=== PATIENT | male | born 1990 | race Caucasian/White ===

== ENCOUNTER 2020-02-26 09:25 | Outpatient (REF) | payer OTHER, SELFPAY | END 2020-02-26 09:26 | disposition home or self-care (01) | LOC: HO.LAB 09:25 | PROVIDERS: Visit Provider Nurse Practitioner Family | DX: J06.9 Acute upper respiratory infection, unspecified (principal); Z20.828 Contact with and (suspected) exposure to other viral communicable diseases | CPT/HCPCS: U0003 ==

== ENCOUNTER 2020-03-06 06:36 | Emergency (ER) | payer OTHER, SELFPAY ==
[2020-03-06 06:42] VITALS: BP 137/104; PULSE 87; RESP 24; TEMP 36.6; O2SAT 94; BMI 26.9
--- NOTE | 2020-03-06 06:46 | PC.NURSE ---
at bedside for primary eval.
--- NOTE | 2020-03-06 06:51 | XR_ITS ---
EXAMINATION: XR CHEST CLINICAL INFORMATION: Fever, cough and cold. Covid Positive COMPARISON: None TECHNIQUE: Frontal view of the chest was obtained. FINDINGS: The lungs are well-expanded with slight interstitial prominence in both lower lobes. No confluent infiltrate seen.. The heart size and pulmonary vascularity is normal. No gross bony abnormality seen XR/XR chest 1V IMPRESSION: No acute pneumonic process seen.
--- NOTE | 2020-03-06 06:53 | ED_ITS ---
HPI - Nausea/Vomiting/Diarrhea General Chief complaint: Nausea/Vomiting/Diarrhea Stated complaint: VOMITING/COVID POSITIVE Time Seen by Provider: 03/06/20 06:50 Source: patient Mode of arrival: ambulatory Limitations: no limitations History of Present Illness MD elicited complaint: nausea, vomiting, diarrhea and other (cough weakness) Pertinent past history: other (+ for COVID since Tuesday but sick x 10 days) Onset (ago): day(s) (10) Description of vomiting: watery Associated nausea: Yes Associated abdominal pain: No Radiation: diffuse Pain consistency: constant Exacerbating factors: none Relieving factors: none Context: sick contacts Associated symptoms: myalgias, cough, fever/chills, headaches, loss of appetite, malaise, nausea/vomiting and shortness of breath Related Data Home Medications Medication Instructions Recorded Confirmed buprenorphine 8 mg-naloxone 2 mg 0.5 film SUBLINGUAL DAILY 02/26/20 03/06/20 sublingual film omeprazole 20 mg capsule,delayed 20 mg PO DAILY 02/26/20 03/06/20 release ascorbic acid (vitamin C) 500 mg PO DAILY 03/06/20 03/06/20 Previous Rx's Medication Instructions Recorded ondansetron 4 mg PO Q8H PRN #20 tab 03/06/20 promethazine 25 mg AL Q6H PRN #12 ea 03/06/20 Allergies Allergy/AdvReac Type Severity Reaction Status Date / Time No Known Allergies Allergy Unverified 12/13/19 16:56 Review of Systems Review of Systems: Constitutional : No Weight loss, pos Fever, pos Chills ENT/Mouth : No sore throat, No Rhinorrhea Eyes: No Swelling, No Redness Cardiovascular : No Chest Pain, pos SOB, NoEdema Respiratory : pos Cough, No Sputum, No Wheezing Gastrointestinal : Positive Nausea, Positive Vomiting, positive Diarrhea, no abdominal Pain, No Hematochezia, No Melena Genitourinary : No Dysuria, No Urinary Frequency, No Hematuria, No Urgency Musculoskeletal : pos joint pain, pos Myalgias, No Joint Swelling Skin : No Skin Lesions, No rash Neuro : pos Weakness, No Numbness, No Dizziness, No Headache Psych : No Anxiety/Panic, No Depression Heme/Lymph: No Bruising, No Lymphadenopathy Endocrine : No Polyuria, No Polydipsia All other systems reviewed and are negative. Gastrointestinal: Gastrointestinal: Reports nausea PMFSH Past Medical History Attestation statement: The following information was validated with the patient. Medical History No known health problems Social History Social History (Updated 03/06/20 @ 07:00 by Lois Mabry DO) Alcohol intake: current Alcohol intake frequency: 3 or more drinks per day Smoking Status: Current every day smoker Smoked in Last 30 Days: Yes Substance Use Type: Former Substance User Any prior treatment program specific to substance use: Yes (ON SUBOXONE, PAST HEROIN USE) Advance Directives: No Physical Exam Vital Signs: Vital Signs: Last Vital Signs Temp 98.5 F 03/06/20 10:37 Pulse 74 03/06/20 10:37 Resp 108 H 03/06/20 10:37 BP 127/93 H 03/06/20 10:37 Pulse Ox 95 03/06/20 10:37 Body Mass Index 26.9 Appearance: Alert. Oriented X3. No acute distress. Eyes: Pupils equal, round and reactive to light. ENT: Pharynx moderate dry MM Neck: Normal inspection. Neck supple. CVS: Normal heart rate and rhythm. Pulses normal. Respiratory: No respiratory distress. Breath sounds diminished with rhonchi and diffuse faint end exp wheezes Abdomen: Soft and non-tender. Skin: Skin warm and dry. Normal skin color. Normal skin turgor. Extremities: No lower extremity edema. No calf ttp Neuro: Oriented X 3. No motor deficit. No sensory deficit. Course Course Course Narrative: labs stable, will replete K, walking sat 94-96% can be managed as outpatient at this time, prior elevations in LFTs able to tolerate PO on DC the patient c/o numbness and diff walking in L foot - 2+ DP pulse states h e has a hard time walking, no motor deficit CT scan for any lesions ordered CT head normal with 1 week of symptoms can follow up with PCP motor and vascular intact MDM - Nausea/Vomiting/Diarrhea MDM Narrative Medical decision making narrative: 30 yo male 4 years in recovery doing great on suboxone here with URI symptoms and n/v/d with known + COVID test on Tuesday - he has sats 91-94%on RA, he has been vomiting x 4 days and appears dehydrated, will need labs, CXR, IVF, zofran, he needs INH as well given lung sounds, will need ambulation trial to assess degree of hypoxia, patient has not been able to take his suboxone due to vomiting - will give AM dose now. dispo per results and findings. Lab Data Result diagrams: 03/06/20 07:24 03/06/20 07:24 Labs: Lab Results 03/06/20 03/06/20 03/06/20 Range/Units 07:24 07:24 07:24 WBC 2.3 L (4.8-10.8) X10*3/uL RBC 5.85 H (4.60-5.80) X10*6/uL Hgb 19.5 H (14.0-18.0) g/dl Hct 52.5 H (42-52) % MCV 89.7 (80-98) fL MCH 33.3 H (27.0-33.0) pg MCHC 37.1 H (31.0-36.0) g/dl RDW 11.0 (11.0-16.0) % Plt Count 165 (160-400) X10*3/uL MPV 11.8 (9.4-12.4) fL Immature Gran % (Auto) Cancelled Neut % (Auto) Cancelled Lymph % (Auto) Cancelled [place] % (Auto) Cancelled Eos % (Auto) Cancelled Baso % (Auto) Cancelled Lymph # (Auto) Cancelled [place] # (Auto) Cancelled Eos # (Auto) Cancelled Baso # (Auto) Cancelled Abs Immat Gran (auto) Cancelled Absolute Neuts (auto) Cancelled Absolute Nucleated RBC 0.000 (0.0-0.012) X10*3/uL Nucleated RBC % (auto) 0.0 (0.0-0.2) /100WBC Neutrophils % (Manual) 67 (45-73) % Band Neutrophils % 0 L (3-5) % Lymphocytes % (Manual) 16 L (20-40) % Monocytes % (Manual) 17 H (2-11) % Abs Neuts (Manual) 1.5 L (2.2-7.9) X10*3/uL Lymphocytes # (Manual) 0.4 L (0.6-4.8) X10*3/uL Monocytes # (Manual) 0.4 (0.0-1.2) X10*3/uL Platelet Estimate NORMAL (NORMAL) Large Platelets PRESENT Plt Morphology Comment NORMAL RBC Morphology NOTED Spherocytes 1+ Tear Drop Cells 2+ [place] Cells 1+ PT 15.9 H (10.8-13.0) SEC INR 1.3 H (0.9-1.1) APTT 31.6 (24.1-38.0) SEC VBG pH (7.32-7.43) VBG pCO2 mmhg VBG pO2 mmhg VBG HCO3 mmol/L VBG O2 Saturation % VBG Base Excess mmol/L Sodium (135-145) mmol/L Potassium (3.3-5.1) mmol/l Chloride (96-108) mmol/L Carbon Dioxide (22-29) mmol/L Anion Gap (12-20) BUN (9-16) mg/dL Creatinine (0.5-1.4) mg/dL Estim Creat Clear Calc Estimated GFR Random Glucose (60-115) mg/dL Lactic Acid 1.2 (0.5-2.0) mmol/L Calcium (8.4-10.2) mg/dL Magnesium (1.6-2.6) mg/dL Ferritin (20-250) ng/mL Total Bilirubin (0.0-1.0) mg/dL Direct Bilirubin (0.0-0.5) mg/dL AST (5-37) U/L ALT (0-40) U/L Alkaline Phosphatase (39-117) U/L Lactate Dehydrogenase (118-273) U/L Total Creatine Kinase (38-174) U/L Total Protein (6.5-8.0) g/dL Albumin (3.5-5.0) g/dL Lipase (8-78) U/L Procalcitonin ng/mL 03/06/20 03/06/20 03/06/20 Range/Units 07:24 07:24 07:24 WBC (4.8-10.8) X10*3/uL RBC (4.60-5.80) X10*6/uL Hgb (14.0-18.0) g/dl Hct (42-52) % MCV (80-98) fL MCH (27.0-33.0) pg MCHC (31.0-36.0) g/dl RDW (11.0-16.0) % Plt Count (160-400) X10*3/uL MPV (9.4-12.4) fL Immature Gran % (Auto) Neut % (Auto) Lymph % (Auto) [place] % (Auto) Eos % (Auto) Baso % (Auto) Lymph # (Auto) [place] # (Auto) Eos # (Auto) Baso # (Auto) Abs Immat Gran (auto) Absolute Neuts (auto) Absolute Nucleated RBC (0.0-0.012) X10*3/uL Nucleated RBC % (auto) (0.0-0.2) /100WBC Neutrophils % (Manual) (45-73) % Band Neutrophils % (3-5) % Lymphocytes % (Manual) (20-40) % Monocytes % (Manual) (2-11) % Abs Neuts (Manual) (2.2-7.9) X10*3/uL Lymphocytes # (Manual) (0.6-4.8) X10*3/uL Monocytes # (Manual) (0.0-1.2) X10*3/uL Platelet Estimate (NORMAL) Large Platelets Plt Morphology Comment RBC Morphology Spherocytes Tear Drop Cells [place] Cells PT (10.8-13.0) SEC INR (0.9-1.1) APTT (24.1-38.0) SEC VBG pH 7.52 H (7.32-7.43) VBG pCO2 31 mmhg VBG pO2 87 mmhg VBG HCO3 25 mmol/L VBG O2 Saturation 97.3 % VBG Base Excess 3.0 mmol/L Sodium 135 (135-145) mmol/L Potassium 3.2 L (3.3-5.1) mmol/l Chloride 97 (96-108) mmol/L Carbon Dioxide 23 (22-29) mmol/L Anion Gap 18 (12-20) BUN 8 L (9-16) mg/dL Creatinine 0.70 (0.5-1.4) mg/dL Estim Creat Clear Calc 179.4 Estimated GFR > 60 Random Glucose 138 H (60-115) mg/dL Lactic Acid (0.5-2.0) mmol/L Calcium 8.8 (8.4-10.2) mg/dL Magnesium 1.7 (1.6-2.6) mg/dL Ferritin 1187 H (20-250) ng/mL Total Bilirubin 1.1 H (0.0-1.0) mg/dL Direct Bilirubin 0.8 H (0.0-0.5) mg/dL AST 58 H (5-37) U/L ALT 69 H (0-40) U/L Alkaline Phosphatase 112 (39-117) U/L Lactate Dehydrogenase 335 H (118-273) U/L Total Creatine Kinase 35 L (38-174) U/L Total Protein 7.0 (6.5-8.0) g/dL Albumin 4.5 (3.5-5.0) g/dL Lipase 46 (8-78) U/L Procalcitonin 0.05 ng/mL Discharge Plan Discharge Clinical Impression: COVID-19, Acute hypokalemia, Abnormal LFTs Vomiting Qualifiers: Vomiting type: unspecified Vomiting Intractability: non-intractable Nausea presence: with nausea Qualified Code(s): R11.2 - Nausea with vomiting, unspecified Leukocytopenia Qualifiers: Leukopenia type: unspecified Qualified Code(s): D72.819 - Decreased white blood cell count, unspecified Patient Disposition: Home, Self-Care Instructions: Acute Nausea and Vomiting (ED), COVID-19 (Coronavirus Disease 2019) (ED) Additional Instructions: return to ED for any worsening symptoms or concerns YOUR LIVER FUNCTION TESTS WERE ELEVATED LIKELY DUE TO THE VIRUS - WILL NEED A RECHECK IN 1 WEEK YOUR HEMOGLOBIN IS ALSO VERY HIGH CHRONICALLY FROM PAST LAB RESULTS THIS SHOULD BE MONITORED BY YOUR DOCTOR REGULARLY USE INHALER 2 PUFFS EVERY 4 HOURS FOR COUGH OR SHORTNESS OF BREATH Prescriptions: New promethazine 25 mg suppository 25 mg AL Q6H PRN (Reason: nausea and vomiting) Qty: 12 RF: 0 ondansetron 4 mg tablet,disintegrating 4 mg PO Q8H PRN (Reason: nausea and vomiting) Qty: 20 RF: 0 No Action ascorbic acid (vitamin C) 500 mg Tablet 500 mg PO DAILY RF: 0 buprenorphine-naloxone 8-2 mg film 0.5 film sublingual DAILY RF: 0 omeprazole 20 mg capsule,delayed release(DR/EC) 20 mg PO DAILY RF: 0 Stand Alone Forms: Work/School Release
[2020-03-06] MEDS: Albuterol Sulfate 90 MCG 8 GM INHALER 4 PUFF INHALE (07:32)
[2020-03-06] MEDS: 0.9 % Sodium Chloride 1,000 ML 999 ML IVCONT (07:37)
[2020-03-06] MEDS: Buprenorphine/Naloxone 4/1 mg FILM 1 FILM SUBLINGUAL (07:37)
[2020-03-06] MEDS: ondansetron HCL 4 MG/2 ML VIAL IVPUSH (07:37)
[2020-03-06] MEDS: Acetaminophen 325 MG TABLET 650 MG PO (07:37)
[2020-03-06 07:41] LABS: HCO3 VBG 25 mmol/L; Oxygen Saturation VBG 97.3 %; PCO2 VBG 31 mmhg; PO2 VBG 87 mmhg; pH VBG 7.52 (7.32-7.43)
[2020-03-06 07:46] VITALS: BP 132/94; PULSE 85; RESP 20; TEMP 36.9; O2SAT 94
[2020-03-06 07:53] VITALS: PULSE 73; O2SAT 94
[2020-03-06 08:01] LABS: INTERNATIONAL NORM RATIO 1.3 (0.9-1.1); Prothrombin Time 15.9 SEC (10.8-13.0)
[2020-03-06 08:04] LABS: Partial Thromboplastin Time 31.6 SEC (24.1-38.0)
[2020-03-06 08:17] LABS: Lactic Acid 1.2 mmol/L (0.5-2.0)
[2020-03-06 08:21] LABS: Alanine Aminotransferase 69 U/L (0-40); Albumin Level 4.5 g/dL (3.5-5.0); Alkaline Phosphatase 112 U/L (39-117); Anion Gap 18 (12-20); Aspartate Amino Transferase 58 U/L (5-37); Bilirubin Direct 0.8 mg/dL (0.0-0.5); Bilirubin Total 1.1 mg/dL (0.0-1.0); Blood Urea Nitrogen 8 mg/dL (9-16); Calcium 8.8 mg/dL (8.4-10.2); Carbon Dioxide 23 mmol/L (22-29); Chloride 97 mmol/L (96-108); Creatinine Clr Calc Pharmacy 179.4; Estimated Glomerular Filt Rate > 60; Glucose Random 138 mg/dL (60-115); Lactate Dehydrogenase 335 U/L (118-273); Lipase 46 U/L (8-78); Magnesium 1.7 mg/dL (1.6-2.6); Potassium 3.2 mmol/l (3.3-5.1); Sodium 135 mmol/L (135-145)
[2020-03-06 08:40] LABS: Procalcitonin 0.05 ng/mL
[2020-03-06 08:41] LABS: Ferritin 1187 ng/mL (20-250)
[2020-03-06 08:42] LABS: Hematocrit 52.5 % (42-52); Hemoglobin 19.5 g/dl (14.0-18.0); Mean Corpuscular HGB Conc 37.1 g/dl (31.0-36.0); Mean Corpuscular Hemoglobin 33.3 pg (27.0-33.0); Mean Corpuscular Volume 89.7 fL (80-98); Mean Platelet Volume 11.8 fL (9.4-12.4); Platelet Count 165 X10*3/uL (160-400); Red Blood Count 5.85 X10*6/uL (4.60-5.80)
[2020-03-06 08:46] LABS: White Blood Count 2.3 X10*3/uL (4.8-10.8)
[2020-03-06 08:55] VITALS: RESP 18; O2SAT 96
--- NOTE | 2020-03-06 08:55 | PC.NURSE ---
pt reports feeling a little better after the medications, sating 96-94% on room air after ambulation. no vomiting, states nausea improved, but still having abd pain, drinking water
[2020-03-06] MEDS: Potassium Chloride ER 20 MEQ TAB.ER.PRT PO (09:01)
--- NOTE | 2020-03-06 09:32 | CT_ITS ---
EXAMINATION: CT HEAD WITHOUT CONTRAST CLINICAL INFORMATION: Covid Positive. Left foot numbness. COMPARISON: None TECHNIQUE: Contiguous axial imaging was performed from the skull base to vertex without intravenous administration of contrast. This CT examination was performed using dose optimization techniques as appropriate, variously including the following: *Automated exposure control *Adjustment of mA and/or kV according to patient size (this includes techniques or standardized protocols for targeted exams where dose is matched to indication/reason for exam; i.e. extremities or head) *Use of iterative reconstruction technique DLP: 691 mGy-cm FINDINGS: There is no evidence of acute intracranial hemorrhage or territorial infarction. No abnormal mass effect or midline shift is seen. Dickens to white matter differentiation is well preserved. No extra-axial fluid collections are identified. The ventricles are normal in size. There is no abnormal attenuation within the brain parenchyma. The osseous structures and soft tissues are normal. The mastoid air cells and visualized portions of the paranasal sinuses are well aerated. CT/CT head/brain wo con IMPRESSION: No acute intracranial process seen.
[2020-03-06 09:49] LABS: Band Neutrophils Percent 0 % (3-5); Lymphocytes Absolute Manual 0.4 X10*3/uL (0.6-4.8); Lymphocytes Percent Manual 16 % (20-40); Monocytes Absolute Manual 0.4 X10*3/uL (0.0-1.2); Monocytes Percent Manual 17 % (2-11); Neutrophils Absolute Manual 1.5 X10*3/uL (2.2-7.9); Neutrophils Percent Manual 67 % (45-73); Spherocytes 1+
[2020-03-06 09:50] LABS: Platelet Estimate NORMAL (NORMAL); Platelet Morphology Comment NORMAL
[2020-03-06 09:51] LABS: Burr Cells 1+; Large Platelet PRESENT; RBC Morphology NOTED; Tear Drop Cells 2+
[2020-03-06 10:37] VITALS: BP 127/93; PULSE 74; RESP 108; TEMP 36.9; O2SAT 95
== END 2020-03-06 11:00 | disposition home or self-care (01) ==
PROVIDERS: Emergency Provider Emergency Medicine; PCP Internal Medicine
DX: U07.1 COVID-19 (principal); R11.2 Nausea with vomiting, unspecified; E87.6 Hypokalemia; D72.819 Decreased white blood cell count, unspecified; R79.89 Other specified abnormal findings of blood chemistry; F17.200 Nicotine dependence, unspecified, uncomplicated
CPT/HCPCS: 36415; 70450; 71045; 80048; 80076; 82550; 82728; 82803; 83605; 83615; 83690; 83735; 84145; 85007; 85025; 85027; 85060; 85610; 85730; 87040; 94640; 99284; J0573; J2405

== ENCOUNTER 2020-07-26 10:27 | Outpatient (REF) | payer OTHER, SELFPAY ==
[2020-07-26 11:21] LABS: Eos%MD 3.6 %; Hemoglobin 17.7 g/dl (14.0-18.0); Lymph%MD 21.9 %; Mean Corpuscular HGB Conc 34.7 g/dl (31.0-36.0); Mean Platelet Volume 10.3 fL (9.4-12.4); Mono%MD 10.8 %; Neut%MD 62.7 %; Platelet Count 172 X10*3/uL (160-400); Red Blood Count 5.05 X10*6/uL (4.60-5.80); Red Cell Distribution Width 12.6 % (11.0-16.0); White Blood Count 3.9 X10*3/uL (4.8-10.8)
[2020-07-26 11:44] LABS: Alanine Aminotransferase 176 U/L (0-40); Albumin Level 4.8 g/dL (3.5-5.0); Alkaline Phosphatase 161 U/L (39-117); Anion Gap 19 (12-20); Aspartate Amino Transferase 308 U/L (5-37); Bilirubin Direct 0.9 mg/dL (0.0-0.5); Bilirubin Total 1.5 mg/dL (0.0-1.0); Blood Urea Nitrogen 7 mg/dL (9-16); Calcium 9.3 mg/dL (8.4-10.2); Carbon Dioxide 25 mmol/L (22-29); Chloride 105 mmol/L (96-108); Estimated Glomerular Filt Rate > 60; Glucose Random 115 mg/dL (60-115); Potassium 4.2 mmol/L (3.3-5.1); Sodium 145 mmol/L (135-145); Total Protein 7.4 g/dL (6.5-8.0)
[2020-07-26 12:22] LABS: Band Neutrophils Percent 2 % (3-5); Basophils Percent Manual 1 % (0-1); Eosinophils Absolute Manual 0.2 X10*3/UL (0.0-0.8); Eosinophils Percent Manual 4 % (0-4); Lymphocytes Absolute Manual 0.7 X10*3/uL (0.6-4.8); Lymphocytes Percent Manual 19 % (20-40); Monocytes Absolute Manual 0.4 X10*3/uL (0.0-1.2); Monocytes Percent Manual 9 % (2-11); Neutrophils Absolute Manual 2.6 X10*3/uL (2.2-7.9); Neutrophils Percent Manual 65 % (45-73)
[2020-07-26 12:24] LABS: Macrocytosis 1+ (5-14) /OIF; RBC Morphology NOTED
[2020-07-26 12:27] LABS: Tear Drop Cells 1+ (0-2) /OIF
[2020-07-26 12:28] LABS: Large Platelet PRESENT; Platelet Estimate NORMAL (NORMAL); Platelet Morphology Comment NOTED; Spherocytes 2+ (3-5) /OIF
[2020-07-28 03:50] LABS: ~Hepatitis C Antibody Nonreactive (Nonreactive)
== END 2020-07-26 10:28 | disposition home or self-care (01) ==
LOC: HO.HMGCLDS 10:27
PROVIDERS: PCP Internal Medicine; Visit Provider Physician Assistant
DX: M79.671 Pain in right foot (principal); M79.672 Pain in left foot; R60.0 Localized edema; R79.89 Other specified abnormal findings of blood chemistry; R74.8 Abnormal levels of other serum enzymes
CPT/HCPCS: 36415; 80048; 80076; 85007; 85027; 86803

== ENCOUNTER 2020-08-08 13:55 | Outpatient (REF) | payer OTHER, SELFPAY ==
[2020-08-08 17:19] LABS: Amphetamine Screen Urine Not Detected (Not Detect); Barbiturates, Urine Not Detected (Not Detect); Benzodiazepines Screen Urine Not Detected (Not Detect); Cannabinoid Screen Urine POSITIVE (Not Detect); Cocaine Screen Urine Not Detected (Not Detect); Opiate Screen Urine Not Detected (Not Detect); Phencyclidine Screen Urine Not Detected (Not Detect)
[2020-08-08 17:39] LABS: Ferritin 826 ng/mL (20-250)
[2020-08-09 14:31] LABS: Venous Lead <1 mcg/dL (<5)
[2020-08-11 04:16] LABS: HBS Num1 175.83 mIU/mL (0-7.99); HBc Num1 0.05 S/CO (0.00-0.79); HBsAGNum1 0.16 S/CO (0.00-0.99); Hepatitis B Core Antibody Nonreactive (Nonreactive); Hepatitis B Surface Antigen Negative (Negative); ~HepC Num1 0.09 S/CO (0.00-0.79); ~Hepatitis B Surface Antibody REACTIVE (Nonreactive); ~Hepatitis C Antibody Nonreactive (Nonreactive)
[2020-08-11 22:03] LABS: Alpha 1 Anti-trypsin 126 mg/dL (83-199); Ceruloplasmin 33 mg/dL (18-36)
[2020-08-12 04:31] LABS: Hepatitis A Antibody IgM 0.25 Index (0-0.79); ~Hepatitis A Antibody IgM Nonreactive (Nonreactive)
== END 2020-08-08 13:56 | disposition home or self-care (01) ==
LOC: HO.HMGCLDS 13:55
PROVIDERS: PCP Internal Medicine; Visit Provider Internal Medicine
DX: R74.8 Abnormal levels of other serum enzymes (principal); R79.89 Other specified abnormal findings of blood chemistry; M79.89 Other specified soft tissue disorders; G62.9 Polyneuropathy, unspecified; F10.10 Alcohol abuse, uncomplicated
CPT/HCPCS: 80307; 82103; 82390; 82728; 83655; 86704; 86706; 86709; 86803; 87340

== ENCOUNTER 2020-08-14 08:51 | Outpatient (REF) | payer OTHER, SELFPAY ==
--- NOTE | ~2020-08-14 | US_ITS ---
EXAMINATION: US ABDOMEN COMPLETE CLINICAL INFORMATION: Abnormal levels of other serum enzymes. COMPARISON: Ultrasound abdomen complete 08/14/2019. TECHNIQUE: Real-time imaging of the abdominal viscera. FINDINGS: PANCREAS: Pancreas is normal in size and contour and echogenicity. There is no pancreatic ductal distention or retroperitoneal effusion. ABDOMINAL AORTA: The proximal, mid, and distal segments are normal in caliber. INFERIOR VENA CAVA: Visualized portions are normal. LIVER: The liver is within limits of normal size and with smooth surface contour. There is increased parenchymal echogenicity consistent with hepatic steatosis. There is likely small area of fatty sparing adjacent to the gallbladder fossa. Otherwise no hepatic parenchymal lesion or intrahepatic ductal dilatation. GALLBLADDER: The gallbladder is normal in size and with normal wall thickness. There is dependent sludge in the lumen and some scattered intraluminal foci of intermediate echogenicity under 5 mm which may represent either tumefactive sludge or nonmineralized calculi. There is no subserosal edema or pericholecystic fluid. No hyperemia on color Doppler. COMMON BILE DUCT: Normal in caliber measuring 0.3 cm in diameter. RIGHT KIDNEY: Normal. No hydronephrosis. No renal calculi or focal parenchymal lesions. The kidney measures 11.3 cm in maximum dimension. LEFT KIDNEY: Normal. No hydronephrosis. No renal calculi or focal parenchymal lesions. The kidney measures 11.0 cm in maximum dimension. SPLEEN: Borderline enlarged, measuring 14 cm in maximal dimension. Prior measurement 12.3 cm on ultrasound 2019. Doppler shows flow in splenic vein towards the liver as expected. FREE FLUID: None. US/US abdomen complete IMPRESSION: 1. Hepatic steatosis. Normal pancreas. Spleen 14 cm. No ascites. 2. Sludge in gallbladder along with either small nonmineralized calculi or small foci tumefactive sludge. No gallbladder wall thickening or ductal dilatation.
== END 2020-08-14 08:52 | disposition home or self-care (01) ==
LOC: HO.HMGCX 08:51
PROVIDERS: PCP Internal Medicine; Visit Provider Internal Medicine
DX: R74.8 Abnormal levels of other serum enzymes (principal); R79.89 Other specified abnormal findings of blood chemistry
CPT/HCPCS: 36415; 76700; 81256

== ENCOUNTER 2020-09-18 09:41 | Outpatient (REF) | payer OTHER, SELFPAY ==
--- NOTE | ~2020-09-18 | XR_ITS ---
EXAMINATION: XR FOOT, LEFT CLINICAL INFORMATION: Left foot pain. COMPARISON: None TECHNIQUE: AP, lateral, and oblique views of the left foot. FINDINGS: There is no acute fracture or dislocation. The tarsal bones are normally aligned. Moderate dorsal spurring is seen along the anterior talus and navicular bone. The soft tissues are unremarkable. XR/XR foot LT min 3V IMPRESSION: Moderate dorsal talonavicular degenerative spurring without acute abnormality.
== END 2020-09-18 09:42 | disposition home or self-care (01) ==
LOC: HO.HMGCX 09:41
PROVIDERS: PCP Internal Medicine; Visit Provider Hospitalist
DX: M79.672 Pain in left foot (principal)
CPT/HCPCS: 73630

== ENCOUNTER → 2020-09-24 10:55 | Outpatient (BNVA) | payer OTHER, SELFPAY | PROVIDERS: PCP Internal Medicine; Referring Provider Internal Medicine; Visit Provider Nurse Practitioner Family | DX: K59.00 Constipation, unspecified (principal); R10.12 Left upper quadrant pain; R74.8 Abnormal levels of other serum enzymes | CPT/HCPCS: 99202 ==

== ENCOUNTER 2021-01-26 18:36 | Emergency (ER) | payer OTHER, SELFPAY ==
--- NOTE | ~2021-01-26 | XR_ITS ---
EXAMINATION: XR CLAVICLE, LEFT CLINICAL INFORMATION: Fall. COMPARISON: None TECHNIQUE: AP and axial views of the left clavicle. FINDINGS: Comminuted and displaced distal clavicular fracture with a dominant oblique component through the distal third of the clavicle. There is approximately 0.8 cm cortical step off superiorly with associated apex superior angulation. There are multiple, inferiorly displaced fracture fragments with the largest measuring up to 3.2 cm. There is widening of the acromioclavicular joint with elevation of the distal clavicle, consistent with an acromioclavicular joint injury. XR/XR clavicle LT IMPRESSION: 1. Comminuted and displaced distal clavicular fracture with apex superior angulation. Multiple displaced inferior fracture fragments with the largest measuring up to 3.2 cm. 2. Widening of the acromioclavicular joint with elevation of the distal clavicle, consistent with acromioclavicular joint injury.
[2021-01-26 18:40] VITALS: BP 154/108; PULSE 97; RESP 18; TEMP 36.7; O2SAT 98; BMI 26.3
--- NOTE | 2021-01-26 19:46 | ED.FALL ---
HPI - Fall General Chief Complaint: Fall Stated Complaint: fall Time Seen by Provider: 01/26/21 19:46 Source: patient Mode of arrival: ambulatory Limitations: no limitations History of Present Illness HPI Narrative: Patient was skateboarding lost control fell on left shoulder comes significant swelling and tenderness lateral part of the clavicle on the left side. Also patient hit the head to the ground no loss of consciousness no seizures no nausea no vomiting ambulatory otherwise not on any blood thinner Related Data Home Medications Medication Instructions Recorded Confirmed omeprazole 20 mg capsule,delayed 20 mg PO DAILY 02/26/20 09/18/20 release buprenorphine 4 mg-naloxone 1 mg 4 film SUBLINGUAL DAILY 08/08/20 09/18/20 sublingual film (Suboxone) cyanocobalamin (vitamin B-12) 1,000 mcg PO DAILY 08/08/20 09/18/20 1,000 mcg capsule Previous Rx's Medication Instructions Recorded prednisone 20 mg tablet 20 mg PO .COMPLEX #18 tab 09/18/20 docusate sodium 100 mg capsule 100 mg PO BEDTIME #30 cap 09/24/20 amoxicillin 875 mg-potassium 1 tab PO BID 10 Days #20 tab 10/22/20 clavulanate 125 mg tablet ondansetron 4 mg disintegrating 4 mg PO Q6H PRN #20 tab 10/22/20 tablet ibuprofen 600 mg tablet 600 mg PO Q6H PRN #40 tab 01/26/21 Allergies Allergy/AdvReac Type Severity Reaction Status Date / Time No Known Allergies Allergy Verified 09/24/20 11:03 Review of Systems Review of Systems: Yes all other systems are reviewed and are negative [facility] Past Medical History Medical History Abnormal complete blood count Abnormal liver enzymes Alcohol abuse Foot pain, bilateral No known health problems Surgical History Hx of skin graft Family History Family History Paternal Grandfather Cancer Paternal Grandmother Cancer Social History Social History Alcohol intake: former Patient Tobacco Use Status: Current everyday Tobacco user Substance Use Type: Former Substance User Advance Directives: No Advance Directives Information Provided: No Physical Exam Vital Signs: Vital Signs: Last Vital Signs Temp 98.1 F 01/26/21 18:40 Pulse 97 01/26/21 18:40 Resp 18 01/26/21 18:40 BP 154/108 H 01/26/21 18:40 Pulse Ox 98 01/26/21 18:40 Body Mass Index 26.3 Const: General: cooperative and in distress Orientation/consciousness: patient oriented x3 HENMT: Head: Yes No palpable skull fracture present and Yes normocephalic Head images: 1. Slight soft tissue tenderness no significant swelling or ecchymosis Ears: hearing grossly normal bilaterally and TM's normal bilaterally Eyes: General: appearance normal, both eyes and all related structures Neck: Neck: Yes normal visual inspection, Yes full ROM and No tender Chest: Chest palpation & inspection: normal inspection of the chest and normal palpation of entire chest wall Resp: Effort & Inspection: normal respiratory effort Auscultation: clear to auscultation bilaterally Cardio: Rate: regular rate Rhythm: regular rhythm Heart sounds: S1 normal heart sound present and S2 normal heart sound present GI: Inspection: Yes normal to inspection Palpation (GI): Soft to palpation and nontender : General: Yes no CVA tenderness Back/Spine/Pelvis: Back: no CVA tenderness Thoracic/Lumbar Spine: No thoracic spinal tenderness and No lumbar spinal tenderness Neuro: General: patient oriented x3 Extrem: Shoulder/upper arm images: 1. Soft tissue tender swelling with obvious deformity shoulder contour is normal neurovascular intact Discharge Plan Discharge Clinical Impression: Clavicular fracture, closed, acromial end Qualifiers: Encounter type: initial encounter Fracture alignment: displaced Laterality: left Qualified Code(s): S42.032A - Displaced fracture of lateral end of left clavicle, initial encounter for closed fracture Patient Disposition: Home, Self-Care Instructions: Clavicle Fracture (ED) Additional Instructions: Keep the left arm in sling Pain medication as prescribed Follow-up with orthopedics this week Prescriptions: New ibuprofen 600 mg tablet 600 mg PO Q6H PRN (Reason: pain) Qty: 40 RF: 0 No Action omeprazole 20 mg capsule,delayed release(DR/EC) 20 mg PO DAILY RF: 0 cyanocobalamin (vitamin B-12) 1,000 mcg capsule 1,000 mcg PO DAILY RF: 0 buprenorphine-naloxone [Suboxone] 4-1 mg film 4 film sublingual DAILY RF: 0 prednisone 20 mg tablet 20 mg PO .COMPLEX Qty: 18 RF: 0 amoxicillin-pot clavulanate 875-125 mg tablet 1 tab PO BID 10 Days Qty: 20 RF: 0 ondansetron 4 mg tablet,disintegrating 4 mg PO Q6H PRN (Reason: nausea and vomiting) Qty: 20 RF: 0 docusate sodium 100 mg capsule 100 mg PO BEDTIME Qty: 30 RF: 3 Referrals: Erich Sanchez MD [Physician] - 1 week Interventions: ED Discharge Assessment Last Done: 01/26/21 21:03 Discharge Date/Time: 01/26/21 21:05
[2021-01-26] MEDS: Ketorolac Tromethamine 60 MG/2 ML VIAL IM (20:00)
== END 2021-01-26 21:05 | disposition home or self-care (01) ==
PROVIDERS: Emergency Provider Internal Medicine; PCP Internal Medicine
DX: S42.032A Displaced fracture of lateral end of left clavicle, initial encounter for closed fracture (principal); V00.131A Fall from skateboard, initial encounter; Y93.51 Activity, roller skating (inline) and skateboarding; Y92.9 Unspecified place or not applicable; Y99.9 Unspecified external cause status
CPT/HCPCS: 73000; 96372; 99284; J1885

== ENCOUNTER 2021-02-02 08:50 | Outpatient (REF) | payer OTHER, SELFPAY ==
--- NOTE | ~2021-02-02 | XR_ITS ---
EXAMINATION: XR CLAVICLE, LEFT CLINICAL INFORMATION: Fractured clavicle. For follow-up. COMPARISON: Left clavicle done on 01/26/2021. TECHNIQUE: Two views of the left clavicle. FINDINGS: Previously documented, clinically known comminuted fracture involving the lateral end of the left clavicle is reidentified showing no definite radiographic evidence of any healing. The acromioclavicular as well as the sternoclavicular alignments are intact. The largest fracture fragment measures 3.6 cm, unchanged. No new abnormalities. XR/XR clavicle LT IMPRESSION: Comminuted fractures involving the lateral end of the left clavicle, appear unchanged since 01/26/2021.
== END 2021-02-02 08:51 | disposition home or self-care (01) ==
LOC: HO.HOSX 08:50
PROVIDERS: Visit Provider Physician Assistant
DX: M89.8X1 Other specified disorders of bone, shoulder (principal); S42.002D Fracture of unspecified part of left clavicle, subsequent encounter for fracture with routine healing
CPT/HCPCS: 73000; 99202

== ENCOUNTER 2021-02-04 10:22 | Day surgery (SDC) | payer OTHER, SELFPAY ==
--- NOTE | 2021-02-03 09:02 | HO.ANESPROP2 ---
Documented by User: Yadi Olivo NP 02/03/21 09:04 HPI - Anesthesia Eval Consult details Narrative: 31yo M for Left Clavicle ORIF Suboxone daily (4mg daily) h/o ETOH abuse with [facility] admit for detox 07/2020. ? current [facility] Active Problems Active Problems: All Active Problems (Updated 02/02/21 @ 11:25 by Elizabeth Scott PA-C) Fracture of clavicle, left, closed (Acute) Dental infection (Acute) Left foot pain (Acute) Muscle spasm (Acute) Sore throat (viral) (Acute) Upper respiratory infection, viral (Acute) COVID-19 (Acute) Bilateral swelling of feet (Acute) Hospital discharge follow-up (Acute) Neuropathy (Acute) Elevated ferritin (Acute) LFT elevation (Acute) Major depression, recurrent (Acute) Anxiety, generalized (Acute) Alcoholism (Acute) Hemochromatosis (Acute) Alcohol abuse (Acute) Edema of both feet (Acute) Foot pain, bilateral (Acute) Abnormal complete blood count (Acute) Abnormal liver enzymes (Acute) Past Medical History Medical History Abnormal complete blood count Abnormal liver enzymes Alcohol abuse Foot pain, bilateral No known health problems Family History Family History Paternal Grandfather Cancer Paternal Grandmother Cancer Surgical History Surgical History Hx of skin graft Social History Social History (Updated 02/04/21 @ 11:48 by Karla Douglas MD) Alcohol intake: current Patient Tobacco Use Status: Current everyday Tobacco user Tobacco use type: Cigarette Cigarettes Per Day: 10 Years Smoked: 10 Smoked in Last 30 Days: Yes Use of substances other than those prescribed or required for medical reasons: Yes Substance Use Type: Marijuana Substance Use Type Other:: Marijuana currently daily Last Used Substance: Hours (ago) Are you DNR?: No Advance Directives: No Advance Directives Information Provided: Yes Meds Allergies Allergy/AdvReac Type Severity Reaction Status Date / Time No Known Allergies Allergy Verified 02/04/21 10:29 Home Medications Medication Instructions Recorded Confirmed Last Taken Type omeprazole 20 mg capsule,delayed 20 mg PO DAILY 02/26/20 09/18/20 Unknown History release buprenorphine 4 mg-naloxone 1 mg 4 film SUBLINGUAL DAILY 08/08/20 09/18/20 Unknown History sublingual film (Suboxone) cyanocobalamin (vitamin B-12) 1,000 mcg PO DAILY 08/08/20 09/18/20 Unknown History 1,000 mcg capsule Exam Exam Date and Time: February 03, [id number] Assessment and Plan Assessment Anesthesia Assessment: Chart Reviewed Documented by User: Karla Douglas MD 02/04/21 11:57 [facility] Past Medical History Medical History Abnormal complete blood count Abnormal liver enzymes Alcohol abuse Foot pain, bilateral No known health problems Family History Family History Paternal Grandfather Cancer Paternal Grandmother Cancer Family history of problems with anesthesia: No Surgical History Surgical History Hx of skin graft History of Problems with Anesthesia: No Social History Social History (Updated 02/04/21 @ 11:48 by Karla Douglas MD) Alcohol intake: current Patient Tobacco Use Status: Current everyday Tobacco user Tobacco use type: Cigarette Cigarettes Per Day: 10 Years Smoked: 10 Smoked in Last 30 Days: Yes Use of substances other than those prescribed or required for medical reasons: Yes Substance Use Type: Marijuana Substance Use Type Other:: Marijuana currently daily Last Used Substance: Hours (ago) Are you DNR?: No Advance Directives: No Advance Directives Information Provided: Yes Meds Allergies Allergy/AdvReac Type Severity Reaction Status Date / Time No Known Allergies Allergy Verified 02/04/21 10:29 Home Medications Medication Instructions Recorded Confirmed Last Taken Type omeprazole 20 mg capsule,delayed 20 mg PO DAILY 02/26/20 09/18/20 Unknown History release buprenorphine 4 mg-naloxone 1 mg 4 film SUBLINGUAL DAILY 08/08/20 09/18/20 Unknown History sublingual film (Suboxone) cyanocobalamin (vitamin B-12) 1,000 mcg PO DAILY 08/08/20 09/18/20 Unknown History 1,000 mcg capsule Exam Height,Weight and Vital Signs: Height 6 ft 2 in Weight 90.718 kg Vital Signs Temp Pulse Resp BP Pulse Ox 02/04/21 11:14 97.7 F 85 16 142/94 H 97 Airway Mallampati Class: II TM Dist: >3cm Neck ROM: Limited (Pain left side from clavicle fracture) Loose/Missing/Broken Teeth: Yes (Most broken) Heart: RRR Lungs: CTAB Assessment and Plan Assessment Anesthesia Assessment: Anesthesia Plan Discussed Final Anesthetic Review Family History of Problems with Anesthesia: No History of Problems with Anesthesia: No NPO: Yes ASA Class: II Final Preanesthetic Review: No Changes in Pt Med Stat, Meds/Allgs Chart Reviewed, Consent Obtained/Reviewed and Anes Risks/Benef Reviewed Patient Risk: Intermediate Procedure Risk: Low Assessment/Block/Sedation in SS: Assess/Block/Sedation-SS Anesthetic Plan Anesthetic Plan: GA and Regional Block (Left interscalene brachial plexus block) Disposition: Standard PACU and Inp. Admit - Standard Bed
[2021-02-04] VITALS (13 sets, daily range): BP systolic 123–148; BP diastolic 78–110; PULSE 70–90; RESP 12–16; TEMP 36.2–36.7; O2SAT 92–97; BMI 25.7
--- NOTE | ~2021-02-04 | FL_ITS ---
EXAMINATION: XR FLUOROSCOPY WITH IMAGES CLINICAL INFORMATION: Fracture distal left clavicle, reduction. COMPARISON: Radiographs left clavicle 02/02/2021 TECHNIQUE: Fluoroscopy performed by Dr. Erich Sanchez. Fluoroscopy time: 0.1 minutes DAP: 0.0114 mGycm2 Images: 3 FINDINGS: Distal left clavicular fracture is reduced with superior compression plate and multiple screws. Fracture fragments are in near-anatomic alignment. Hardware is intact. FL/FL guidance in OR IMPRESSION: Status post reduction distal left clavicular fracture. Hardware intact.
[2021-02-04] MEDS: Lactated Ringers 1,000 ML 100 ML IVCONT (11:20)
--- NOTE | 2021-02-04 14:14 | P.BOP_ITS ---
Brief Operative Note Date of Service: 02/04/21 Pre-op diagnosis: left clavicle fracture Post-op diagnosis: same Procedure: ORIF left clavicle Implants: fadi distal clavicle locking plate Surgeon: Erich Sanchez MD Anesthesia: GETA and regional Was an Drive In Teller used for this Procedure?: Yes Drive In Teller: Skylar Mg Estimated blood loss (mL): 100 IV fluids (mL): 800 Pathology: none sent Condition: stable Disposition: PACU
--- NOTE | 2021-02-04 14:19 | MHC.SHP ---
Pre-Procedural Eval Section A Date of Service: 02/04/21 The patient is an INPATIENT: No Changes since office visit: Yes Patient answered all questions; No Cold of Flu in the past 2 weeks, No New Medical Problems and No Changes in Medication The History & Physical has been completed within 30 days and I have reviewed it.: Yes Section B Chief Complaint: clavicle fx Allergies: Allergies Allergy/AdvReac Type Severity Reaction Status Date / Time No Known Allergies Allergy Verified 02/04/21 10:29 Plan I have reviewed the history and physical and performed a pertinent physical examination on my patient. No changes have occurred unless specified.
[2021-02-04] MEDS: oxyCODONE HCl Immed Release 5 MG TABLET 10 MG PO (14:47)
[2021-02-04] MEDS: Acetaminophen 325 MG TABLET 650 MG PO (14:47)
[2021-02-04] MEDS: fentaNYL citrate/PF 100 MCG/2 ML VIAL 25 MCG IVPUSH ×2 (14:50→15:10)
[2021-02-04] MEDS: Ketorolac Tromethamine 15 MG/ML VIAL IVPUSH (14:52)
--- NOTE | 2021-02-10 12:13 | P.OP_ITS ---
Operative Note Operative Note Date of Service: 02/10/21 Narrative: Pre-op diagnosis: left clavicle fracture Post-op diagnosis: same Procedure: ORIF left clavicle Implants: fadi distal clavicle locking plate Surgeon: Erich Sanchez MD Anesthesia: GETA and regional Was an Hardware Technician used for this Procedure?: Yes Hardware Technician: Skylar Mg Estimated blood loss (mL): 100 IV fluids (mL): 800 Pathology: none sent Condition: stable Disposition: PACU Procedure in detail: Patient was brought to the operating room and placed in the beach chair position. All bony prominences were wll padded. He was prepped and draped in standard sterile fashion and a time out was called to identify proper site, proper procedure and IV antibiotics per weight were administered. I began by making a superior incision over the distal clavicle. Full thickness flaps were created and the comminuted fracture was identified. Using a combination of irrigation and sharp dissection, the fracture was provisionally reduced with a lobster claw tenaculum. A locking distal clavicle plate was used to span the fracture. Distal locking screws were placed using standard AO technique and medial screws were placed through the plate using AO technique. Biplanar fluoroscopy was used to confirm fracture reduction and hardware position. Once I was satisfied with the fracture reduction and the hardware position all non- essential instrumentation was removed. The CC ligaments were likely not present but CC ligament reconstruction was not undertaken. The wound was then irrigated copiously and a layered closure with skin glue and absorbable suture was used. Patient was then placed in a sterile dressing and extubated and brought to the recovery room in stable condition.
== END 2021-02-04 16:45 | disposition home or self-care (01) ==
PROVIDERS: PCP Internal Medicine; Visit Provider Orthopaedic Surgery
PROC: (CPT 23515; principal; 2021-02-04 12:10)
DX: S42.032A Displaced fracture of lateral end of left clavicle, initial encounter for closed fracture (principal); M89.8X1 Other specified disorders of bone, shoulder; W19.XXXA Unspecified fall, initial encounter; Y93.51 Activity, roller skating (inline) and skateboarding; Y92.9 Unspecified place or not applicable; Y99.8 Other external cause status; F17.210 Nicotine dependence, cigarettes, uncomplicated
CPT/HCPCS: 23515; C1713; J0690; J1100; J1885; J2250; J2405; J3010

== ENCOUNTER 2021-02-16 07:58 | Outpatient (REF) | payer OTHER, SELFPAY ==
--- NOTE | ~2021-02-16 | XR_ITS ---
EXAMINATION: XR CLAVICLE, LEFT CLINICAL INFORMATION: Fracture distal left clavicle. Follow-up. COMPARISON: Radiographs left clavicle 02/04/2021, 02/02/2021, 01/26/2021 TECHNIQUE: Two views of the left clavicle. FINDINGS: Comminuted distal left clavicular fracture is reduced with superior compression plate and screws. The hardware is intact. There is mild elevation of the distal clavicle at the acromioclavicular joint consistent with sprain, similar to prior studies. There is separate fracture fragment again noted inferior to the distal clavicle measuring approximately 1.0 x 3.5 cm. No significant changes. XR/XR clavicle LT IMPRESSION: Status post reduction distal left clavicular fracture. Hardware intact. No significant changes.
== END 2021-02-16 07:59 | disposition home or self-care (01) ==
LOC: HO.HOSX 07:58
PROVIDERS: Visit Provider Physician Assistant
DX: M89.8X1 Other specified disorders of bone, shoulder (principal); S42.002D Fracture of unspecified part of left clavicle, subsequent encounter for fracture with routine healing; F17.210 Nicotine dependence, cigarettes, uncomplicated
CPT/HCPCS: 73000; 99212

== ENCOUNTER 2021-03-09 14:34 | Outpatient (REF) | payer OTHER, SELFPAY ==
[2021-03-09 15:15] LABS: COVID-19 Test Negative (Negative)
== END 2021-03-09 14:35 | disposition home or self-care (01) ==
LOC: HO.LAB 14:34
PROVIDERS: Visit Provider Internal Medicine
DX: Z20.822 Contact with and (suspected) exposure to COVID-19 (principal)
CPT/HCPCS: 36415; 87635; C9803

== ENCOUNTER 2021-03-16 08:33 | Outpatient (REF) | payer OTHER, SELFPAY ==
--- NOTE | ~2021-03-16 | XR_ITS ---
EXAMINATION: XR SHOULDER, LEFT one view CLINICAL INFORMATION: Shoulder pain, prior clavicle fracture COMPARISON: 02/16/2021 TECHNIQUE: A single frontal view of the left shoulder was acquired. FINDINGS: A side plate and screws transfix the distal half of the left clavicle. A fracture still faintly seen as a lucency. The remainder of the osseous structures are intact. XR/XR shoulder LT 1V IMPRESSION: Surgically transfixed left clavicle in anatomic alignment and position.
== END 2021-03-16 08:34 | disposition home or self-care (01) ==
LOC: HO.HOSX 08:33
PROVIDERS: Visit Provider Orthopaedic Surgery
DX: M25.512 Pain in left shoulder (principal); S42.002A Fracture of unspecified part of left clavicle, initial encounter for closed fracture; X58.XXXA Exposure to other specified factors, initial encounter; Y93.9 Activity, unspecified; Y92.9 Unspecified place or not applicable; Y99.8 Other external cause status; F17.210 Nicotine dependence, cigarettes, uncomplicated
CPT/HCPCS: 73020; 99212

== ENCOUNTER 2021-04-20 07:53 | Outpatient (REF) | payer OTHER, SELFPAY ==
--- NOTE | ~2021-04-20 | XR_ITS ---
EXAMINATION: XR CLAVICLE, LEFT CLINICAL INFORMATION: Clinical fracture COMPARISON: Left shoulder x-rays 03/16/2021 and left clavicle x-rays 02/16/2021 TECHNIQUE: 2 views of the left clavicle. FINDINGS: Fixation plate and screws of the mid and distal clavicle are stable. There is no evidence of hardware failure. There has been some mild callus formation along the adjacent fracture fragment. Similar elevation of the distal clavicle in relation to the acromion process. Visualized left-sided ribs and lung parenchyma are unremarkable. XR/XR clavicle LT IMPRESSION: Mild interval callus formation of surgically treated distal clavicular fracture.
== END 2021-04-20 07:54 | disposition home or self-care (01) ==
LOC: HO.HOSX 07:53
PROVIDERS: Visit Provider Physician Assistant
DX: M89.8X1 Other specified disorders of bone, shoulder (principal); S42.002D Fracture of unspecified part of left clavicle, subsequent encounter for fracture with routine healing
CPT/HCPCS: 73000; 99212

== ENCOUNTER 2021-06-03 12:41 | Outpatient (REF) | payer OTHER, SELFPAY ==
--- NOTE | ~2021-06-03 | XR_ITS ---
EXAMINATION: XR CLAVICLE, LEFT CLINICAL INFORMATION: Follow-up fracture COMPARISON: Radiographs left clavicle 04/20/2021, 03/16/2021, 02/14/2021 TECHNIQUE: 2 views of the left clavicle. FINDINGS: Distal left clavicle fracture is reduced with superior side plate and multiple screws. Major fracture fragment alignment is near-anatomic. The hardware is intact. There is no destructive process. There is stable rectangular ossification at the caudal aspect of the fracture site. The acromioclavicular alignment is unchanged. Left lung apex is clear. XR/XR clavicle LT IMPRESSION: Hardware intact. Near-anatomic alignment major fragments.
== END 2021-06-03 12:42 | disposition home or self-care (01) ==
LOC: HO.HOSX 12:41
PROVIDERS: Visit Provider Physician Assistant
DX: S42.002D Fracture of unspecified part of left clavicle, subsequent encounter for fracture with routine healing (principal)
CPT/HCPCS: 73000; 99212

== ENCOUNTER 2021-07-20 06:45 | Outpatient (REF) | payer OTHER, SELFPAY ==
--- NOTE | ~2021-07-20 | XR_ITS ---
EXAMINATION: XR CLAVICLE, LEFT CLINICAL INFORMATION: Follow-up left clavicular fracture. COMPARISON: Left clavicle 06/03/2021. TECHNIQUE: 2 views of the left clavicle. FINDINGS: There is anatomic alignment of lateral clavicular fracture status post internal fixation with metallic plate and screws. No cyst change since the last study. The AC joint is intact. The soft tissues are normal. XR/XR clavicle LT IMPRESSION: Stable healing fracture distal clavicle with intact hardware. No change.
== END 2021-07-20 06:46 | disposition home or self-care (01) ==
LOC: HO.HOSX 06:45
PROVIDERS: Visit Provider Orthopaedic Surgery
DX: S42.002D Fracture of unspecified part of left clavicle, subsequent encounter for fracture with routine healing (principal)
CPT/HCPCS: 73000; 99212

== ENCOUNTER 2021-07-22 15:00 | Outpatient (RCR) | payer OTHER, SELFPAY ==
--- NOTE | 2021-04-03 15:46 | MHC.PT.EP ---
[facility] [place] Office [place] Office [place] Office [address] Raul Stephens [address] [phone] F: [phone] F: [phone] F: [phone] F: [phone] Physical Therapy Plan of Care Date of Evaluation: Date of Surgery: 02/04/2021 Diagnosis: fracture of L clavicle Assessment: Patient is a 31 year old male presenting to PT s/p L clavicle ORIF on 02/04/2021. He presents today with impairments in pain, shoulder ROM, shoulder strength, periscapular strength, and posture. 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 Clinical presentation today is most consistent with signs and sx associated with s/p L clavicle ORIF and pt will benefit from skilled PT to address the following problems and impairments noted upon evaluation: pain, shoulder ROM, shoulder strength, periscapular strength, and posture. These problems limit the patient with the following functional activities: reaching OH, lifting, work, and ADLs. The prescribed treatment plan of care is medically necessary. Co-morbidities of none were identified and taken into considerations of plan of care. Pt was educated on HEP, role of PT, prognosis, POC. Frequency and Duration: The patient will be seen 2 x week x 5 weeks Short Term Goals: Pt will demonstrate L shoulder AROM equal B in 3 weeks for improved ability to reach OH. Pt will demonstrate improved L shoulder strength by 1/3 MMT in 3 weeks. Pt will demonstrate improved postural awareness by sitting with biomechanically correct posture without cues throughout session to improve overall postural function in 3 weeks. Custodial Goals: Pt will demonstrate improved SPADI score by 13 points for improved functional mobility in 5 weeks. Pt will demonstrate 5/5 L shoulder strength in all directions in 5 weeks for improved ability to lift at work. Pt will demonstrate ability to complete all ADLs with min to no pain in 5 weeks to allow return to PLOF. Treatment Plan: Modalities to reduce pain, spasms and effusion. Manual therapy to restore motion and function. Therapeutic exercise to improve strength and flexibility. Neuromuscular re-education for posture and balance. Therapeutic activities to return to functional activities of daily living. Electronically signed by: Violetta Vaughn, PT, DPT, ATC Please sign and return to therapist. Thank you for your referral.
--- NOTE | 2021-07-22 15:57 | MHC.PT.DC ---
[facility] [place] Office [place] Office [place] Office [address] Raul Stephens [address] [phone] F: [phone] F: [phone] F: [phone] F: [phone] Physical Therapy Discharge Report Diagnosis: fracture of L clavicle Date of Surgery: 02/04/2021 Date of Evaluation: 04/03/21 Date of Discharge: 07/22/21 Treatments to Date: Cancellations to Date: 1 No Shows to Date: 0 Discharge Status: Achieved Goals Improved Function Independent with HEP Discharge Summary: Pt has made progress since start of care towards his goals. He is still having low level pain and demonstrating limitations in ROM. His continued pain and ROM limitations has prevented him from meeting all of his goals. Ortho is considering removing his hardware due to his continued pain. At this point pt has maximized benefits of skilled PT. He is independent and is compliant in his HEP. Discussed recommendation to continue with HEP alf even after hardware is removed. Pt in agreement with d/c today. Electronically signed by: Violetta Vaughn, PT, DPT, ATC Please sign and return to therapist. Thank you for your referral.
== END 2021-07-22 15:57 | disposition home or self-care (01) ==
LOC: HO.PTCHIC 15:00
PROVIDERS: PCP Internal Medicine; Visit Provider Physician Assistant
DX: S42.002D Fracture of unspecified part of left clavicle, subsequent encounter for fracture with routine healing (principal)
CPT/HCPCS: 97110; 97140; 97161

== ENCOUNTER 2021-10-12 10:08 | Outpatient (REF) | payer OTHER, SELFPAY ==
--- NOTE | ~2021-10-12 | XR_ITS ---
EXAMINATION: XR CLAVICLE, LEFT CLINICAL INFORMATION: Follow up left clavicular fracture. COMPARISON: 07/20/2021. TECHNIQUE: Two views of the left clavicle. FINDINGS: Fixation plate with multiple traversing screws along the mid to distal left clavicle without evidence of hardware failure. Distal clavicular fracture appears unchanged with similar degree of bony bridging, callus formation and heterotopic bone inferior to the clavicle. No new injuries. No abnormal soft tissue calcifications. XR/XR clavicle LT IMPRESSION: Stable examination when compared to June 2021.
== END 2021-10-12 10:09 | disposition home or self-care (01) ==
LOC: HO.HOSX 10:08
PROVIDERS: Visit Provider Physician Assistant
DX: S42.002D Fracture of unspecified part of left clavicle, subsequent encounter for fracture with routine healing (principal); M89.8X1 Other specified disorders of bone, shoulder
CPT/HCPCS: 73000; 99212

== ENCOUNTER 2021-11-12 06:27 | Outpatient (REF) | payer OTHER, SELFPAY ==
--- NOTE | ~2021-11-12 | XR_ITS ---
EXAMINATION: XR CLAVICLE, LEFT CLINICAL INFORMATION: Follow up left clavicle fracture. COMPARISON: 10/12/2021 and studies dating back to 01/26/2021. TECHNIQUE: 2 views of the left clavicle. FINDINGS: There is sideplate and screw fixation of a mid to distal clavicle fracture. There is heterotopic bone about the inferior aspect of the distal clavicle which appears be related to previous inferior fracture fragment evident on study of 01/26/2021. There is widening of the coracoclavicular space for the major portion of the clavicle with the small inferior bony density appearing to be attached to an intact coracoclavicular ligament. XR/XR clavicle LT IMPRESSION: No significant change in appearance of left clavicle fracture status post surgical fixation.
== END 2021-11-12 06:28 | disposition home or self-care (01) ==
LOC: HO.HOSX 06:27
PROVIDERS: Visit Provider Physician Assistant
DX: M89.8X1 Other specified disorders of bone, shoulder (principal)
CPT/HCPCS: 73000

== ENCOUNTER 2021-11-18 06:01 | Day surgery (SDC) | payer OTHER, SELFPAY ==
[2021-11-11 15:04] VITALS: BMI 25.7
[2021-11-18] VITALS (10 sets, daily range): BP systolic 112–138; BP diastolic 82–98; PULSE 68–85; RESP 15–18; TEMP 36.8–37.2; O2SAT 93–98
--- NOTE | ~2021-11-18 | FL_ITS ---
EXAMINATION: XR FLUOROSCOPY WITH IMAGES CLINICAL INFORMATION: Removal left clavicle hardware. COMPARISON: 11/12/2021 TECHNIQUE: Fluoroscopy performed by Dr. Erich Sanchez. Fluoroscopy time: Less than 1 minute. Cumulative Dose: 0.284 mGy-cm DAP: 0.72988 mGy-cm2 Images: 4. FINDINGS: C-arm imaging demonstrates that left clavicle sideplate and screws have been removed with a metallic device seen overlying the region of fracture of the distal clavicle. FL/FL guidance in OR IMPRESSION: Fluoroscopy for hardware removal left clavicle.
--- NOTE | 2021-11-18 07:15 | HO.ANESPROP2 ---
HPI - Anesthesia Eval Consult details Narrative: 31 M for removal of orthopedics hardware of clavicle PMFSH Active Problems Active Problems: All Active Problems (Updated 11/17/21 @ 07:38 by Tania Arguello RN) Muscle spasm (Acute) Sore throat (viral) (Acute) Upper respiratory infection, viral (Acute) COVID-19 (Acute) Edema of both feet (Acute) Bilateral swelling of feet (Acute) Hospital discharge follow-up (Acute) Neuropathy (Acute) Elevated ferritin (Acute) LFT elevation (Acute) Major depression, recurrent (Acute) Anxiety, generalized (Acute) Alcoholism (Acute) Hemochromatosis (Acute) Left foot pain (Acute) Dental infection (Acute) Fracture of clavicle, left, closed (Acute) Fracture of left clavicle with routine healing (Acute) Pain of left clavicle (Acute) Alcohol abuse (Acute) Foot pain, bilateral (Acute) Abnormal complete blood count (Acute) Abnormal liver enzymes (Acute) Past Medical History Medical History Abnormal complete blood count Abnormal liver enzymes Alcohol abuse Clavicle fracture Foot pain, bilateral No known health problems Family History Family History Paternal Grandfather Cancer Paternal Grandmother Cancer Family history of problems with anesthesia: No Surgical History Surgical History Hx of skin graft History of Problems with Anesthesia: No Social History Social History Alcohol intake: current Patient Tobacco Use Status: Current everyday Tobacco user Tobacco use type: Cigarette Cigarettes Per Day: 8 Years Smoked: 10 Substance Use Type: Marijuana 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 Allergies Allergy/AdvReac Type Severity Reaction Status Date / Time No Known Allergies Allergy Verified 11/12/21 11:08 Home Medications Medication Instructions Recorded Confirmed Last Taken Type omeprazole 20 mg capsule,delayed 20 mg PO DAILY 02/26/20 11/18/21 Unknown History release buprenorphine 4 mg-naloxone 1 mg 2 film sublingual DAILY 08/08/20 11/18/21 02/03/21 History sublingual film (Suboxone) Exam Exam Date and Time: November 18, 2021 0715 Height,Weight and Vital Signs: Height 6 ft 2 in Weight 90.718 kg Last Vital Signs Temp 98.2 F 11/18/21 06:28 Pulse 74 11/18/21 06:28 Resp 15 11/18/21 06:28 BP 138/98 H 11/18/21 06:28 Pulse Ox 96 11/18/21 06:28 O2 Del Method 11/18/21 06:28 Airway Mallampati Class: III TM Dist: >3cm Neck ROM: Full Loose/Missing/Broken Teeth: Yes (Extrmely poor dentition globally . Multiple chipped teeth ) Heart: S1,S2 Lungs: b/l breath sounds Assessment and Plan Assessment Anesthesia Assessment: Anesthesia Plan Discussed and Chart Reviewed Final Anesthetic Review Family History of Problems with Anesthesia: No History of Problems with Anesthesia: No NPO: Yes ASA Class: II Final Preanesthetic Review: Meds/Allgs Chart Reviewed, Consent Obtained/Reviewed and Anes Risks/Benef Reviewed Patient Risk: Intermediate Procedure Risk: Intermediate Anesthetic Plan Anesthetic Plan: GA Disposition: Standard PACU
--- NOTE | 2021-11-18 07:37 | MHC.SHP ---
Pre-Procedural Eval Section A Date of Service: 11/18/21 The patient is an INPATIENT: No Changes since office visit: Yes Patient answered all questions; No Cold of Flu in the past 2 weeks, No New Medical Problems and No Changes in Medication The History & Physical has been completed within 30 days and I have reviewed it.: Yes Section B Chief Complaint: hardwear removal Allergies: Allergies Allergy/AdvReac Type Severity Reaction Status Date / Time No Known Allergies Allergy Verified 11/12/21 11:08 Plan I have reviewed the history and physical and performed a pertinent physical examination on my patient. No changes have occurred unless specified.
[2021-11-18] MEDS: Lactated Ringers 1,000 ML 50 ML IVCONT (07:45)
--- NOTE | 2021-11-18 08:48 | P.BOP_ITS ---
Brief Operative Note Date of Service: 11/18/21 Pre-op diagnosis: Retained orthopaedic hardware left shoulder Post-op diagnosis: same Procedure: Removal of hardware left shoulder Implants: none Surgeon: Erich Sanchez MD Anesthesia: GETA and local Was an Concession Stand Attendant used for this Procedure?: Yes Concession Stand Attendant: Skylar Mg Estimated blood loss (mL): 50 IV fluids (mL): 600 Pathology: none sent Condition: stable Disposition: PACU
--- NOTE | 2021-11-18 08:53 | W.PM.OPN ---
Operative Note Operative Note Date of Service: 11/18/21 Narrative: Date of Service: 11/18/21 Pre-op diagnosis: Retained orthopaedic hardware left shoulder Post-op diagnosis: same Procedure: Removal of hardware left shoulder Implants: none Surgeon: Erich Sanchez MD Anesthesia: GETA and local Was an Security Compliance Engineer used for this Procedure?: Yes Security Compliance Engineer: Skylar Mg Estimated blood loss (mL): 50 IV fluids (mL): 600 Pathology: none sent Condition: stable Disposition: PACU Procedure in detail: Patient was brought to the operating room and placed in the beach chair position on the surgical table. He was prepped and draped in standard sterile fashion and a time out was called to identify proper site, proper procedure and IV antibiotics per weight were administered. I began by making an incision over the previous surgical incision. Full thickness flaps were taken down to the plate and a periosteal elevator was used to remove soft tissue from the plate. 9 screws and the plate were then removed without difficulty. The screw holes and extraneous bone were debrided with a currette and rongeur. I then irrigated and performed a layered closure with absorbable suture and skin glue. Local anesthetic was administered before and after incision. The patient was placed in sterile dressings, extubated and brought to the recovery room in stable condition.
== END 2021-11-18 10:57 | disposition home or self-care (01) ==
PROVIDERS: PCP Internal Medicine; Visit Provider Orthopaedic Surgery
PROC: (CPT 20680; principal; 2021-11-18 07:30)
DX: Z47.2 Encounter for removal of internal fixation device (principal); Z87.81 Personal history of (healed) traumatic fracture; Z96.698 Presence of other orthopedic joint implants
CPT/HCPCS: 20680; J0131; J0690; J1100; J1170; J2250; J2405; J2795; J3010

== ENCOUNTER 2021-12-30 15:00 | Outpatient (RCR) | payer OTHER, SELFPAY ==
--- NOTE | 2021-12-11 15:48 | MHC.PT.EP ---
[facility] [place] Office [place] Office [place] Office [address] [phone] F: [phone] F: [phone] F: [phone] F: [phone] Physical Therapy Plan of Care Date of Evaluation: Date of Surgery: 11/18/2021 Diagnosis: s/p hardware removal/collarbone Assessment: Patient is a 31 year old male presenting to PT s/p hardware removal/collarbone 11/18/2021 He presents today with discomfort, ROM, shoulder strength, and difficulty lifting OH. 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 Pt expresses retirement goal of lifting OH, and is motivated to work towards this in PT. Clinical presentation today is most consistent with signs and sx associated with s/p hardware removal/collarbone and pt will benefit from skilled PT to address the following problems and impairments noted upon evaluation: discomfort, ROM, shoulder strength, and difficulty lifting OH . These problems limit the patient with the following functional activities: work, reaching OH, lifting OH. The prescribed treatment plan of care is medically necessary. Co-morbidities of clavicle ORIF were identified and taken into considerations of plan of care. Pt was educated on HEP, role of PT, prognosis, POC. Frequency and Duration: The patient will be seen 2 x week x 3 weeks Short Term Goals: Pt will demonstrate L shoulder AROM without discomfort and equal B in 2 weeks. Pt will demonstrate 5/5 L shoulder strength in 2 weeks. 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 Pt will demonstrate ability to lift 10# OH with min to no pain or discomfort in 3 weeks for improved tolerance to work. Treatment Plan: Modalities to reduce pain, spasms and effusion. Manual therapy to restore motion and function. Therapeutic exercise to improve strength and flexibility. Neuromuscular re-education for posture and balance. Therapeutic activities to return to functional activities of daily living. Electronically signed by: Violetta Vaughn, PT, DPT, ATC Please sign and return to therapist. Thank you for your referral.
--- NOTE | 2021-12-30 15:41 | MHC.PT.DC ---
[facility] [place] Office [place] Office [place] Office [address] Raul Stephens [address] [phone] F: [phone] F: [phone] F: [phone] F: [phone] Physical Therapy Discharge Report Diagnosis: s/p hardware removal/collarbone Date of Surgery: 11/18/2021 Date of Evaluation: 12/11/21 Date of Discharge: 12/30/21 Treatments to Date: 4 Cancellations to Date: 0 No Shows to Date: 0 Discharge Status: Achieved Goals Improved Function Independent with HEP Discharge Summary: 12/30/2021: Pt at this point appears to be close to baseline. Pain is much improved. He is independent in his home program at this point and understands importance of terminal clerk compliance especially with overhead exercises and strengthening to maximize his full return to work. He has returned to work at full duty at this point as well. At this time max benefits of PT have been provided and skilled PT is no longer indicated. Pt in agreement with d/c today. 12/23/2021: Continued working on OH mobility. No pain with any exercises today. Minimal cues for form. Advised continuing with HEP at home. 12/16/2021: Pt accommodated with shorter session per his request. Focused session on OH mobility and functional lifting as this is required for his job. No pain reported during session. Min to no cues throughout. Advised continuing with HEP at home. Patient is a 31 year old male presenting to PT s/p hardware removal/collarbone 11/18/2021 He presents today with discomfort, ROM, shoulder strength, and difficulty lifting OH. 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 Pt expresses nursing home goal of lifting OH, and is motivated to work towards this in PT. Clinical presentation today is most consistent with signs and sx associated with s/p hardware removal/collarbone and pt will benefit from skilled PT to address the following problems and impairments noted upon evaluation: discomfort, ROM, shoulder strength, and difficulty lifting OH . These problems limit the patient with the following functional activities: work, reaching OH, lifting OH. The prescribed treatment plan of care is medically necessary. Co-morbidities of clavicle ORIF were identified and taken into considerations of plan of care. Pt was educated on HEP, role of PT, prognosis, POC. Electronically signed by: Violetta Vaughn, PT, DPT, ATC Please sign and return to therapist. Thank you for your referral.
== END 2021-12-30 15:42 | disposition home or self-care (01) ==
LOC: HO.PTCHIC 15:00
PROVIDERS: Visit Provider Physician Assistant
DX: Z98.890 Other specified postprocedural states (principal)
CPT/HCPCS: 97110; 97161; 97530

== ENCOUNTER 2022-01-16 11:08 | Inpatient (IN) | payer OTHER, SELFPAY ==
[2022-01-16] VITALS (9 sets, daily range): BP systolic 125–156; BP diastolic 86–112; PULSE 73–101; RESP 18–23; TEMP 36.3–36.9; O2SAT 97–100; BMI 24.7
--- NOTE | ~2022-01-16 | XR_ITS ---
EXAMINATION: XR CHEST CLINICAL INFORMATION: COVID positive. COMPARISON: 03/18/2022 chest radiograph. TECHNIQUE: Frontal view of the chest was obtained. FINDINGS: No significant abnormality is noted involving the heart, lungs, mediastinum, bony thorax or soft tissues. XR/XR chest 1V IMPRESSION: No acute cardiopulmonary process.
--- NOTE | 2022-01-16 12:14 | ECG_ITS ---
Test Reason : GENERAL MEDICAL Blood Pressure : / mmHG Vent. Rate : 070 BPM Atrial Rate : 070 BPM P-R Int : 184 ms QRS Dur : 086 ms QT Int : 406 ms P-R-T Axes : 011 -01 039 degrees QTc Int : 438 ms Normal sinus rhythm RSR' or QR pattern in V1 suggests right ventricular conduction delay Otherwise normal ECG When compared with ECG of 14-AUG-2019 12:15, No significant change was found Referred By: Layne Mendez Electronically Signed By:YADIRA ANTON MD
--- NOTE | 2022-01-16 12:15 | ED_ITS ---
HPI - URI/Sore Throat General Chief Complaint: Upper Respiratory Symptoms Stated Complaint: Covid +, diff breathing, body aches Time Seen by Provider: 01/16/22 12:12 Source: patient Mode of arrival: ambulatory Limitations: no limitations History of Present Illness HPI Narrative: 32-year-old male history of alcohol use disorder, anxiety, depression, presenting to the emergency department with complaints of fatigue, malaise, shortness of breath, chest pain times 4 days. Patient tells me tested positive for COVID at home a few days ago. He reports that chest pain is worse with inspiration, reports shortness of breath both at rest and with exertion. He tells me that he is feeling awful. Upon his arrival patient is noted to be tremulous, diaphoretic, anxious I asked patient if he drinks alcohol he tells me he drinks regularly a six-pack a day if not more. Last drink was last night at around 21:00, reports previous hospitalizations for alcoholism , he tells me he feels like this could be a mix of both COVID and alcohol withdrawal. Denies any other drugs, tobacco. Denies SI and HI. Patient has not taken anything for his symptoms. Denies any significant cardiac history. Tells me does have a strong family history of pulmonary embolisms. He tells me he feels like he is shaking and he is now starting to have a headache described as a pressure which feels like his normal without vision changes or dizziness. Denies nausea, vomiting, abdominal pain, weakness, recent sick contacts. Patient vaccinated with COVID vaccine x2 Related Data Home Medications Medication Instructions Recorded Confirmed omeprazole 20 mg capsule,delayed 20 mg PO DAILY 02/26/20 11/18/21 release buprenorphine 2 mg-naloxone 0.5 mg 2 mg sublingual DAILY 12/31/21 sublingual film Allergies Allergy/AdvReac Type Severity Reaction Status Date / Time No Known Allergies Allergy Verified 01/16/22 11:18 Review of Systems Review of Systems: Constitutional : No Weight loss, No Fever, + Chills, + Fatigue, + Malaise ENT/Mouth : No sore throat, No Rhinorrhea Eyes: No Eye Pain, No Swelling, No Redness Cardiovascular : + Chest Pain, + SOB, No Dyspnea on Exertion, No Orthopnea, No Edema, No Palpitations Respiratory : No Cough, No Sputum, No Wheezing Gastrointestinal : No Nausea, No Vomiting, No Diarrhea, No Constipation, No abdominal Pain, No Hematochezia, No Melena Genitourinary : No Dysuria, No Urinary Frequency, No Hematuria, Musculoskeletal : No joint pain, + Myalgias, No Joint Swelling Skin : No Skin Lesions, No rash, + diaphoresis Neuro : No Weakness, No Numbness, No Dizziness, + Headache Psych : No Anxiety/Panic, No Depression All other systems reviewed and are negative Yes all other systems are reviewed and are negative [facility] Past Medical History Attestation statement: The following information was validated with the patient. Source: old records reviewed and nursing notes reviewed Medical History Abnormal complete blood count Abnormal liver enzymes Alcohol abuse Clavicle fracture Foot pain, bilateral No known health problems Surgical History Hx of skin graft Family History Family History Paternal Grandfather Cancer Paternal Grandmother Cancer Social History Social History Alcohol intake: current Alcohol intake frequency: 3 or more drinks per day Alcohol type: beer Patient Tobacco Use Status: Current everyday Tobacco user Tobacco use type: Cigarette Cigarettes Per Day: 8 Years Smoked: 10 Smoked in Last 30 Days: Yes Use of substances other than those prescribed or required for medical reasons: Yes Substance Use Type: Marijuana Advance Directives: No Advance Directives Information Provided: Yes 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 Physical Exam Vital Signs: Vital Signs: Last Vital Signs Temp 97.7 F 01/16/22 12:48 Pulse 78 01/16/22 12:48 Resp 18 01/16/22 12:48 BP 144/108 H 01/16/22 12:48 Pulse Ox 97 01/16/22 12:48 O2 Del Method 01/16/22 12:48 BMI result Body Mass Index 24.7 Patient noted to be hypertensive Appearance: Alert.? Oriented X3.? No acute distress.? Patient appears slightly anxious. Head: Normocephalic, atraumatic, no step-offs or deformities Eyes: Pupils equal, round and reactive to light.? ENT: Pharynx normal.? Tongue fasciculations noted. Neck: Normal inspection.? Neck supple.? CVS: Normal heart rate and rhythm.? Pulses normal.? Respiratory: No respiratory distress.? Breath sounds normal.? Abdomen: Soft and nontender.? Skin: Skin warm and dry.? Normal skin color.? Normal skin turgor.? Patient with diaphoretic skin. Extremities: No lower extremity edema.? No calf ttp. 5/5 strength to bilateral upper and lower extremities. Bilateral upper and lower extremities with resting tremors. Upper extremities with asterixis. Neuro: Oriented X 3.? No motor deficit.? No sensory deficit. CN 2-12 intact CIWA-14 Course Reevaluation(s) Reevaluation #1: CBC with a leukopenia and thormbocytopenia likley secondary to viral infection , MCV elevated likely secondary to alcohol use disorder, mag 1.5 will give 2 gm of IV mag. Total bilirubin elevated 2.1, higher than baseline, transaminases also elevated in a 2-1 ratio likely secondary to alcohol abuse. Alk-phos elevated however with all this being said patient is not tender to palpation of abdomen therefore I do not feel as though it is necessary to obtain imaging of abdomen. ammonia normal, unlikely hepatic encephalopathy. Troponin negative and EKG nonischemic, unlikely ACS, BNP within normal limits. Chest x-ray with no acute findings. Time: 13:36 Reevaluation #2: At this time Dr. Puga to admit to hospital. Time: 13:42 MDM - URI/Sore Throat MDM Narrative Medical decision making narrative: 1217 32 yo M covid + on 01/15/2022 presents w/ cp, sob X 4 days. Reports regular alcohol use around 6 pack of beer or more a day, last drink last night. PE patient noted to be hypertensive, diaphoretic, anxious, with resting tremors to upper and lower extremities, also noted to have a slight flapping tremor as well as tongue fasciculations. Regular rate fast rhythm. Lungs clear. Abdomen soft nontender nondistended. Neuro nonfocal, cerebellar intact. Likely symptoms secondary to viral infection, also concerns for acute alcohol withdrawal upon my initial evaluation patient's CIWA off of 14. Unlikely that this is PE however will rule out. Will obtain chest x-ray to rule out pneumonia. Will also obtain troponin, EKG to rule out ACS although unlikely. Unlikley stroke, posterior stroke or hepatic encephalopathy To note, patient tells me he has been admitted in the past for alcoholism and alcohol use disorder, no history of delirium tremens, seizures. Plan at this time is labs, imaging, ethanol Medical Records Attestation: I reviewed the patient's medical records. Lab Data Attestation: I reviewed the patient's lab results. Result diagrams: 01/16/22 12:59 01/16/22 12:59 Labs: Lab Results 01/16/22 01/16/22 01/16/22 Range/Units 12:53 12:59 12:59 WBC 2.1 L (4.8-10.8) X10*3/uL RBC 4.20 L (4.60-5.80) X10*6/uL Hgb 14.6 (14.0-18.0) g/dl Hct 41.5 L (42.0-52.0) % MCV 98.8 H (80.0-98.0) fL MCH 34.8 H (27.0-33.0) pg MCHC 35.2 (31.0-36.0) g/dl RDW 12.3 (11.0-16.0) % Plt Count 77 L (160-400) X10*3/uL MPV 11.2 (9.4-12.4) fL Immature Gran % (Auto) 0.0 (0.0-0.4) % Neut % (Auto) 60.4 (45-73) % Lymph % (Auto) 23.1 (20-40) % Morrill % (Auto) 13.7 H (2-11) % Eos % (Auto) 1.9 (0-4) % Baso % (Auto) 0.9 (0-2) % Lymph # (Auto) 0.5 L (1.2-4.9) X10*3/uL Morrill # (Auto) 0.3 (0.1-1.2) X10*3/uL Eos # (Auto) 0.0 (0.0-0.4) X10*3/uL Baso # (Auto) 0.0 (0.0-0.2) X10*3/uL Abs Immat Gran (auto) 0.00 (0.00-0.03) X10*3/uL Absolute Neuts (auto) 1.3 L (2.0-8.3) x10*3/uL Absolute Nucleated RBC 0.000 (0.0-0.012) X10*3/uL Nucleated RBC % (auto) 0.0 (0.0-0.2) /100WBC D-Dimer High Sensitivty < 150 NG/ML Sodium (135-145) mmol/L Potassium (3.3-5.1) mmol/L Chloride (96-108) mmol/L Carbon Dioxide (22-29) mmol/L Anion Gap (12-20) BUN (9-16) mg/dL Creatinine (0.5-1.4) mg/dL Estim Creat Clear Calc Estimated GFR Random Glucose (60-115) mg/dL Calcium (8.4-10.2) mg/dL Magnesium (1.6-2.6) mg/dL Total Bilirubin (0.0-1.0) mg/dL AST (5-37) U/L ALT (0-40) U/L Alkaline Phosphatase (39-117) U/L Ammonia (13-55) umol/L Troponin I High Sens (<3.5-35.0) ng/L B-Natriuretic Peptide (<100) pg/mL Total Protein (6.5-8.0) g/dL Albumin (3.5-5.0) g/dL Ethyl Alcohol mg/dL COVID-19 (AIMEE) Positive A (Negative) COVID-19 Clin Com See Note 01/16/22 01/16/22 01/16/22 Range/Units 12:59 12:59 12:59 WBC (4.8-10.8) X10*3/uL RBC (4.60-5.80) X10*6/uL Hgb (14.0-18.0) g/dl Hct (42.0-52.0) % MCV (80.0-98.0) fL MCH (27.0-33.0) pg MCHC (31.0-36.0) g/dl RDW (11.0-16.0) % Plt Count (160-400) X10*3/uL MPV (9.4-12.4) fL Immature Gran % (Auto) (0.0-0.4) % Neut % (Auto) (45-73) % Lymph % (Auto) (20-40) % Morrill % (Auto) (2-11) % Eos % (Auto) (0-4) % Baso % (Auto) (0-2) % Lymph # (Auto) (1.2-4.9) X10*3/uL Morrill # (Auto) (0.1-1.2) X10*3/uL Eos # (Auto) (0.0-0.4) X10*3/uL Baso # (Auto) (0.0-0.2) X10*3/uL Abs Immat Gran (auto) (0.00-0.03) X10*3/uL Absolute Neuts (auto) (2.0-8.3) x10*3/uL Absolute Nucleated RBC (0.0-0.012) X10*3/uL Nucleated RBC % (auto) (0.0-0.2) /100WBC D-Dimer High Sensitivty NG/ML Sodium 139 (135-145) mmol/L Potassium 3.8 (3.3-5.1) mmol/L Chloride 99 (96-108) mmol/L Carbon Dioxide 30 H (22-29) mmol/L Anion Gap 14 (12-20) BUN 4 L (9-16) mg/dL Creatinine 0.64 (0.5-1.4) mg/dL Estim Creat Clear Calc 192.6 Estimated GFR > 60 Random Glucose 104 (60-115) mg/dL Calcium 8.7 D (8.4-10.2) mg/dL Magnesium 1.5 L (1.6-2.6) mg/dL Total Bilirubin 2.1 H (0.0-1.0) mg/dL AST 353 H (5-37) U/L ALT 180 H (0-40) U/L Alkaline Phosphatase 237 H D (39-117) U/L Ammonia (13-55) umol/L Troponin I High Sens < 3.5 (<3.5-35.0) ng/L B-Natriuretic Peptide 21 (<100) pg/mL Total Protein 6.0 L (6.5-8.0) g/dL Albumin 3.9 (3.5-5.0) g/dL Ethyl Alcohol < 10 mg/dL COVID-19 (AIMEE) (Negative) COVID-19 Clin Com 01/16/22 Range/Units 13:05 WBC (4.8-10.8) X10*3/uL RBC (4.60-5.80) X10*6/uL Hgb (14.0-18.0) g/dl Hct (42.0-52.0) % MCV (80.0-98.0) fL MCH (27.0-33.0) pg MCHC (31.0-36.0) g/dl RDW (11.0-16.0) % Plt Count (160-400) X10*3/uL MPV (9.4-12.4) fL Immature Gran % (Auto) (0.0-0.4) % Neut % (Auto) (45-73) % Lymph % (Auto) (20-40) % Morrill % (Auto) (2-11) % Eos % (Auto) (0-4) % Baso % (Auto) (0-2) % Lymph # (Auto) (1.2-4.9) X10*3/uL Morrill # (Auto) (0.1-1.2) X10*3/uL Eos # (Auto) (0.0-0.4) X10*3/uL Baso # (Auto) (0.0-0.2) X10*3/uL Abs Immat Gran (auto) (0.00-0.03) X10*3/uL Absolute Neuts (auto) (2.0-8.3) x10*3/uL Absolute Nucleated RBC (0.0-0.012) X10*3/uL Nucleated RBC % (auto) (0.0-0.2) /100WBC D-Dimer High Sensitivty NG/ML Sodium (135-145) mmol/L Potassium (3.3-5.1) mmol/L Chloride (96-108) mmol/L Carbon Dioxide (22-29) mmol/L Anion Gap (12-20) BUN (9-16) mg/dL Creatinine (0.5-1.4) mg/dL Estim Creat Clear Calc Estimated GFR Random Glucose (60-115) mg/dL Calcium (8.4-10.2) mg/dL Magnesium (1.6-2.6) mg/dL Total Bilirubin (0.0-1.0) mg/dL AST (5-37) U/L ALT (0-40) U/L Alkaline Phosphatase (39-117) U/L Ammonia 41 (13-55) umol/L Troponin I High Sens (<3.5-35.0) ng/L B-Natriuretic Peptide (<100) pg/mL Total Protein (6.5-8.0) g/dL Albumin (3.5-5.0) g/dL Ethyl Alcohol mg/dL COVID-19 (AIMEE) (Negative) COVID-19 Clin Com ECG Data Attestation: I personally reviewed and interpreted this ECG as follows: ECG interpretation date: 01/16/22 ECG interpretation time: 13:36 Prior ECG tracings: available for review Interpretation: Ventricular rate of 70 RI normal, QRS normal, QT/QTC normal. EKG with normal sinus rhythm no ST elevations or inversions concerning for ischemia. No significant changes when compared to previous EKG from July 2019 Critical Care Time Critical Care Time Critical Care Time: No Discharge Plan Discharge Clinical Impression: COVID, Alcohol withdrawal, Transaminitis Patient Disposition: Admitted As Inpatient Prescriptions: No Action omeprazole 20 mg capsule,delayed release(DR/EC) 20 mg PO DAILY buprenorphine-naloxone 2-0.5 mg film 2 mg sublingual DAILY
[2022-01-16] MEDS: LORazepam 1 MG TABLET 2 MG PO (12:47)
[2022-01-16] MEDS: 0.9 % Sodium Chloride 1,000 ML 999 ML IV (13:07)
[2022-01-16 13:09] LABS: Basophils Percent Auto 0.9 % (0-2); Eosinophils Percent Auto 1.9 % (0-4); Hematocrit 41.5 % (42.0-52.0); Hemoglobin 14.6 g/dl (14.0-18.0); Lymphocytes Absolute Auto 0.5 X10*3/uL (1.2-4.9); Lymphocytes Percent Auto 23.1 % (20-40); Mean Corpuscular HGB Conc 35.2 g/dl (31.0-36.0); Mean Corpuscular Hemoglobin 34.8 pg (27.0-33.0); Mean Corpuscular Volume 98.8 fL (80.0-98.0); Monocytes Absolute Auto 0.3 X10*3/uL (0.1-1.2); Monocytes Percent Auto 13.7 % (2-11); Neutrophils Absolute Auto 1.3 x10*3/uL (2.0-8.3); Neutrophils Percent Auto 60.4 % (45-73); Red Cell Distribution Width 12.3 % (11.0-16.0)
[2022-01-16 13:10] LABS: White Blood Count 2.1 X10*3/uL (4.8-10.8)
[2022-01-16 13:19] LABS: Ethanol < 10 mg/dL
[2022-01-16 13:20] LABS: COVID-19 Test Positive (Negative); IDNOW Serial# 16C4AD1C
[2022-01-16 13:25] LABS: B Type Natriuretic Peptide 21 pg/mL (<100); Troponin-I High Sensitivity < 3.5 ng/L (<3.5-35.0)
[2022-01-16 13:30] LABS: Alanine Aminotransferase 180 U/L (0-40); Albumin Level 3.9 g/dL (3.5-5.0); Alkaline Phosphatase 237 U/L (39-117); Anion Gap 14 (12-20); Aspartate Amino Transferase 353 U/L (5-37); Bilirubin Total 2.1 mg/dL (0.0-1.0); Blood Urea Nitrogen 4 mg/dL (9-16); Calcium 8.7 mg/dL (8.4-10.2); Carbon Dioxide 30 mmol/L (22-29); Chloride 99 mmol/L (96-108); Creatinine Clr Calc Pharmacy 192.6; Estimated Glomerular Filt Rate > 60; Glucose Random 104 mg/dL (60-115); Magnesium 1.5 mg/dL (1.6-2.6); Potassium 3.8 mmol/L (3.3-5.1); Sodium 139 mmol/L (135-145)
[2022-01-16 13:38] LABS: Ammonia 41 umol/L (13-55)
[2022-01-16 13:38] LABS: D Dimer High Sensitivity < 150 NG/ML; Mean Platelet Volume 11.2 fL (9.4-12.4); Platelet Count 77 X10*3/uL (160-400)
[2022-01-16] MEDS: Magnesium Sulfate/H2O 2 GM/50 ML PIGGYBACK IV (13:47)
--- NOTE | 2022-01-16 14:20 | PHA.MEDREC ---
Pharmacy Consult ? Medication Reconciliation Pharmacy has completed the medication reconciliation.Spoke with patient in ED. Patient took all morning medications. Patient started amoxicillin on tuesday01/11/22 x 7 days
[2022-01-16] MEDS: PHENobarbitaL sodium 130 MG/ML IM ONCE 395 MG IM (14:52)
--- NOTE | 2022-01-16 15:18 | PM.IMHP ---
History of Present Illness Date of Service: 01/16/22 Attending physician on admission: Angel Puga Chief Complaint: alcohol withdrawal, covid positive 32-year-old male with history of alcohol use, substance abuse in the past on Suboxone, also has history of peripheral neuropathy: He currently drinks every other day 6-7 vodka drinks-come to the hospital, in additionfatigue, malaise, shortness of breath for few days- as per ED physician tested positive for COVID at home a few days ago.? He reports that pleuritic pain is worse with inspiration, reports shortness of breath both at rest and with exertion.? In addition noted to be tremulous, diaphoretic, anxious I asked patient if he drinks alcohol he tells me he drinks regularly a six-pack a day if not more. He reported Pfizer vaccine time to last year. Denies any bodies sick family member or recent travel. Denies any new complaint of abdominal pain or fever or chills or nausea or vomiting Denies any cough Denies any weakness or numbness. Lab imaging reviewed: CBC proceed full chronic leukopenia, also has thrombocytopenia slightly worsened than baseline. Elevated LFTs Chest x-ray negative D-dimer and negative Review of Systems Review of Systems: as above. [facility] Medical History Abnormal complete blood count Abnormal liver enzymes Alcohol abuse Clavicle fracture Foot pain, bilateral No known health problems Family History Paternal Grandfather Cancer Paternal Grandmother Cancer Pertinent family history: History of blood clot -as per the patient his brother recently diagnosed. Surgical History Hx of skin graft Social History Alcohol intake: current Alcohol intake frequency: 3 or more drinks per day Alcohol type: beer Patient Tobacco Use Status: Current everyday Tobacco user Tobacco use type: Cigarette Cigarettes Per Day: 8 Years Smoked: 10 Smoked in Last 30 Days: Yes Use of substances other than those prescribed or required for medical reasons: Yes Substance Use Type: Marijuana Advance Directives: No Advance Directives Information Provided: Yes 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 Allergies Allergy/AdvReac Type Severity Reaction Status Date / Time No Known Allergies Allergy Verified 01/16/22 11:18 Active Medications: Current Medications Buprenorphine/Naloxone (Buprenorphine/Naloxone 2/0.5mg Film) 1 film SUBLINGUAL DAILY [facility] Folic Acid (Folic Acid 1 Mg Tablet) 1 mg PO DAILY [facility] Magnesium Sulfate (Magnesium Sulfate/H2o) 2 gm in 50 mls @ 25 mls/hr IV ONCE ONE Stop: 01/16/22 15:33 Last Admin: 01/16/22 13:47 Dose: 25 mls/hr Multivitamins/Vitamin C (Multivitamin Tablet) 1 tab PO DAILY [facility] Omeprazole (Omeprazole 20 Mg Capsule.Dr) 20 mg PO DAILY@0630 [facility] Pharmacy Consult (Consult Rx Etoh Phenob Im/Po) 0 each MISCELLANE ONCE PRN; Protocol PRN Reason: Consult order Phenobarbital (Phenobarbital 30 Mg Tablet) 60 mg PO BID [facility] Stop: 01/18/22 21:01 Phenobarbital (Phenobarbital 30 Mg Tablet) 30 mg PO BID [facility] Stop: 01/20/22 21:01 Phenobarbital (Phenobarbital 30 Mg Tablet) 30 mg PO DAILY [facility] Stop: 01/22/22 09:01 Phenobarbital Sodium (Phenobarbital Sodium 130 Mg/Ml Vial Im Q3hx2) 295 mg IM Q3H [facility] Stop: 01/16/22 21:01 Sodium Chloride (0.9 % Sodium Chloride Flush 3 Ml Syringe) 3 ml IVFLUSH QSHIFT [facility] Thiamine HCl (Thiamine Hcl 100 Mg Tablet) 100 mg PO DAILY [facility] Home Medications Medication Instructions Recorded Confirmed Last Taken Type omeprazole 20 mg capsule,delayed 20 mg PO DAILY@0630 02/26/20 01/16/22 01/16/22 History release buprenorphine 2 mg-naloxone 0.5 mg 1 film sublingual DAILY 12/31/21 01/16/22 01/16/22 History sublingual film amoxicillin 500 mg capsule 1 cap PO Q6H 01/16/22 01/16/22 01/16/22 History vitamin B complex 1 tab PO DAILY 01/16/22 01/16/22 01/16/22 History Physical Exam Vital Signs and Narrative: Vital Signs: Last Vital Signs Temp 98.3 F 01/16/22 14:39 Pulse 79 01/16/22 14:39 Resp 19 01/16/22 14:39 BP 134/96 H 01/16/22 14:39 Pulse Ox 97 01/16/22 14:39 O2 Del Method 01/16/22 14:39 BMI result Body Mass Index 24.7 Appearance: Alert.? Oriented X3.?Tramulous Eyes: Pupils equal, round and reactive to light.? Sclera nonicteric.? ENT: Pharynx normal.? Moist mucous membranes. cvs: rrr, [id number] . res: clear to auscultation ,no rhonchii or wheezing abd: no rebound or guarding ,nt, bs present. ext pulses present , no cyanosis . neuro: axo3 , nonfocal. Results Labs CBC and Chem 7: 01/16/22 12:59 01/16/22 12:59 Labs: Laboratory Results - last 24 hr 01/16/22 01/16/22 01/16/22 12:53 12:59 12:59 MCV 98.8 H MCH 34.8 H MCHC 35.2 RDW 12.3 Plt Count 77 L MPV 11.2 Immature Gran % (Auto) 0.0 Neut % (Auto) 60.4 Lymph % (Auto) 23.1 [place] % (Auto) 13.7 H Eos % (Auto) 1.9 Baso % (Auto) 0.9 Lymph # (Auto) 0.5 L [place] # (Auto) 0.3 Eos # (Auto) 0.0 Baso # (Auto) 0.0 Abs Immat Gran (auto) 0.00 Absolute Neuts (auto) 1.3 L Absolute Nucleated RBC 0.000 Nucleated RBC % (auto) 0.0 D-Dimer High Sensitivty < 150 Anion Gap Estim Creat Clear Calc Estimated GFR Random Glucose Calcium Magnesium Total Bilirubin AST ALT Alkaline Phosphatase Ammonia Troponin I High Sens B-Natriuretic Peptide Total Protein Albumin Ethyl Alcohol COVID-19 ([facility]) Positive A COVID-19 Clin Com See Note 01/16/22 01/16/22 01/16/22 12:59 12:59 12:59 MCV MCH MCHC RDW Plt Count MPV Immature Gran % (Auto) Neut % (Auto) Lymph % (Auto) [place] % (Auto) Eos % (Auto) Baso % (Auto) Lymph # (Auto) [place] # (Auto) Eos # (Auto) Baso # (Auto) Abs Immat Gran (auto) Absolute Neuts (auto) Absolute Nucleated RBC Nucleated RBC % (auto) D-Dimer High Sensitivty Anion Gap 14 Estim Creat Clear Calc 192.6 Estimated GFR > 60 Random Glucose 104 Calcium 8.7 D Magnesium 1.5 L Total Bilirubin 2.1 H AST 353 H ALT 180 H Alkaline Phosphatase 237 H D Ammonia Troponin I High Sens < 3.5 B-Natriuretic Peptide 21 Total Protein 6.0 L Albumin 3.9 Ethyl Alcohol < 10 COVID-19 ([facility]) COVID-19 Clin Com 01/16/22 13:05 MCV MCH MCHC RDW Plt Count MPV Immature Gran % (Auto) Neut % (Auto) Lymph % (Auto) [place] % (Auto) Eos % (Auto) Baso % (Auto) Lymph # (Auto) [place] # (Auto) Eos # (Auto) Baso # (Auto) Abs Immat Gran (auto) Absolute Neuts (auto) Absolute Nucleated RBC Nucleated RBC % (auto) D-Dimer High Sensitivty Anion Gap Estim Creat Clear Calc Estimated GFR Random Glucose Calcium Magnesium Total Bilirubin AST ALT Alkaline Phosphatase Ammonia 41 Troponin I High Sens B-Natriuretic Peptide Total Protein Albumin Ethyl Alcohol COVID-19 ([facility]) COVID-19 Clin Com ECG Attestation: I personally reviewed and interpreted this ECG as follows: (NSR no ST changes.) Imaging Radiologist's Impressions: Impressions Chest X-Ray 01/16/22 11:28 IMPRESSION: No acute cardiopulmonary process. Assessment and Plan (1) Alcohol withdrawal: Status: Acute (2) Transaminitis: Status: Acute (3) Leucopenia: Status: Acute (4) Thrombocytopenia: Status: Acute (5) Elevated blood pressure reading: Status: Acute Plan 32-year-old male with history of alcohol use, substance abuse in the past on Suboxone, also has history of peripheral neuropathy: Came with alcohol withdrawal. 1. Alcohol withdrawal: Continue phenobarb protocol, thiamine, folic acid. CIWA scale 2. Transaminitis possibly related to alcohol use. Monitor LFTs closely. 3. Peripheral neuropathy: Continue multivitamins. 4. DVT prophylaxis: Mechanical devices. 5. Substance abuse: Continue Suboxone. 6. leucopenia/thrombocytopenia: possible realted to alcohol use. moniter cbc . 7. Sinusitis :continue antibiotics. 8.elevated blood pressure : moniter blood pressure , low sodium diet , added labetalol. Patient will benefit from Inpatient stay at least 2 midnights for Alcohol withdrawal-on phenobarb protocol, CIWA monitoring, monitor LFTs and CBC . Above management discussed with the patient in detail length he understand and in agreement with the plan, time spent 70 minute, patient full code Quality Stroke Does the patient have a stroke diagnosis?: No VTE Prior VTE?: No VTE Risk Level:: Medical - moderate - high VTE Device Contraindication: N/A - Device Ordered VTE Drug Contraindication: N/A - Med Ordered
[2022-01-16] MEDS: Folic Acid 1 MG TABLET PO (15:41)
[2022-01-16] MEDS: Amoxicillin 500 MG CAPSULE PO ×2 (15:41→23:22)
[2022-01-16] MEDS: Thiamine HCL 100 MG TABLET PO (15:41)
[2022-01-16] MEDS: 0.9 % Sodium Chloride Flush 3 ML SYRINGE IVFLUSH (15:42)
[2022-01-16 17:41] LABS: Amphetamine Screen Urine Not Detected (Not Detect); Barbiturates, Urine POSITIVE (Not Detect); Benzodiazepines Screen Urine Not Detected (Not Detect); Cannabinoid Screen Urine POSITIVE (Not Detect); Cocaine Screen Urine Not Detected (Not Detect); Fentanyl, urine Not Detected (Not Detect); Opiate Screen Urine Not Detected (Not Detect); Phencyclidine Screen Urine Not Detected (Not Detect)
[2022-01-16] MEDS: PHENobarbitaL sodium 130 MG/ML VIAL IM Q3Hx2 295 MG IM ×2 (18:07→20:27)
[2022-01-16] MEDS: Nicotine 21 MG PATCH.TD24 TRANSDERMA (18:07)
--- NOTE | 2022-01-16 20:14 | PC.NURSE ---
Pt is experiencing numbness on his feet, pt has pressure on his chest, he was connected to the telemetry and it shows Tachy 108. Pt IV is patent. Pt CIWA is 32 o2 is 97 %. Pt has no edema. BP is stable and afribile. Pt is coughing and anxious. RN will administered meds as order. will continue to moniotr.
[2022-01-16] MEDS: Labetalol HCL 100 MG TABLET PO (20:24)
--- NOTE | 2022-01-16 23:24 | PC.NURSE ---
Pt was medicated as order , pt CIWA assessment was completed.
[2022-01-17] VITALS (7 sets, daily range): BP systolic 101–153; BP diastolic 70–97; PULSE 68–81; RESP 12–19; TEMP 36.4–36.9; O2SAT 96–100
[2022-01-17] MEDS: 0.9 % Sodium Chloride Flush 3 ML SYRINGE IVFLUSH ×3 (00:24→16:48)
[2022-01-17] MEDS: Amoxicillin 500 MG CAPSULE PO ×4 (03:58→22:28)
[2022-01-17] MEDS: Omeprazole 20 MG CAPSULE.DR PO (05:37)
--- NOTE | 2022-01-17 05:38 | PC.NURSE ---
Pt is sleeping, his V/S are stable. Pt reports no pain doing his re-assessment.
[2022-01-17 08:45] LABS: Hemoglobin 13.3 g/dl (14.0-18.0); Mean Corpuscular Hemoglobin 34.4 pg (27.0-33.0); PLT CLUMP 1; Red Blood Count 3.87 X10*6/uL (4.60-5.80)
[2022-01-17 08:47] LABS: Hematocrit 38.1 % (42.0-52.0); Mean Corpuscular HGB Conc 34.9 g/dl (31.0-36.0); Mean Corpuscular Volume 98.4 fL (80.0-98.0); Mean Platelet Volume 11.3 fL (9.4-12.4)
[2022-01-17 08:49] LABS: Platelet Count 65 X10*3/uL (160-400)
[2022-01-17 09:06] LABS: Anion Gap 14 (12-20); Blood Urea Nitrogen 3 mg/dL (9-16); Calcium 8.5 mg/dL (8.4-10.2); Carbon Dioxide 27 mmol/L (22-29); Chloride 99 mmol/L (96-108); Creatinine Clr Calc Pharmacy 228.3; Estimated Glomerular Filt Rate > 60; Glucose Random 92 mg/dL (60-115); Potassium 3.4 mmol/L (3.3-5.1); Sodium 137 mmol/L (135-145)
[2022-01-17] MEDS: Multivitamin TABLET 1 TAB PO (09:24)
[2022-01-17] MEDS: PHENobarbitaL 30 MG TABLET 60 MG PO ×2 (09:24→22:28)
[2022-01-17] MEDS: Thiamine HCL 100 MG TABLET PO (09:25)
[2022-01-17] MEDS: Folic Acid 1 MG TABLET PO (09:25)
[2022-01-17] MEDS: Buprenorphine/Naloxone 2/0.5mg FILM 1 FILM SUBLINGUAL (09:26)
[2022-01-17] MEDS: Nicotine 21 MG PATCH.TD24 TRANSDERMA (09:26)
--- NOTE | 2022-01-17 09:41 | PC.NURSE ---
pt alert and oriented, skin pwd, respirations even and unlabored, ls clear, pt reports not sleeping well do to cough and some chest tightness. also reports a headache 09/04. dr cardoza at bedside will be holding the labetalol bp stable at this time
--- NOTE | 2022-01-17 10:05 | MHC.CM.PN ---
Male 31 DX ETOH W/D Covid+ He lives with his Fipato. He is independent all functional mobility. 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 [employer] x 2. Offered to document HCP, declined. He is on Suboxone. DP home self care , Brinda will transport home.
[2022-01-17] MEDS: guaiFENesin 100 MG/5 ML LIQUID 10 ML PO (11:39)
[2022-01-17] MEDS: Acetaminophen 325 MG TABLET 650 MG PO (11:39)
[2022-01-17 12:30] LABS: Alanine Aminotransferase 145 U/L (0-40); Albumin Level 3.5 g/dL (3.5-5.0); Alkaline Phosphatase 216 U/L (39-117); Aspartate Amino Transferase 264 U/L (5-37); Bilirubin Direct 1.6 mg/dL (0.0-0.5); Bilirubin Total 2.4 mg/dL (0.0-1.0); Total Protein 5.2 g/dL (6.5-8.0)
--- NOTE | 2022-01-17 12:30 | P.PNIM_ITS ---
Subjective Subjective Date of Service: 01/17/22 Interval History: Alcohol withdrawal, COVID Review of Systems Patient has lot of cough and feels chest soreness after cough. Denies any nausea vomiting or fever chills Is thinking about drinking less alcohol next time. Physical Exam Vital Signs: Vital Signs: Last Vital Signs Temp 98.3 F 01/17/22 09:08 Pulse 76 01/17/22 09:08 Resp 19 01/17/22 09:08 BP 123/86 01/17/22 09:08 Pulse Ox 97 01/17/22 09:08 O2 Del Method 01/17/22 09:08 BMI result Body Mass Index 24.7 Appearance: Alert.? Oriented X3.?still Tramulous, headches Eyes: Pupils equal, round and reactive to light.? Sclera nonicteric.? ENT: Pharynx normal.? Moist mucous membranes. cvs: rrr, [id number] . res: grossly fair air entry, slightly diminshed at bases. abd: no rebound or guarding ,nt, bs present. ext pulses present , no cyanosis . neuro: axo3 , nonfocal. Objective Data Active Medications Acetaminophen (Acetaminophen 325 Mg Tablet) 650 mg PO Q6H PRN PRN Reason: Headache Last Admin: 01/17/22 11:39 Dose: 650 mg Documented By: PRIMO Amoxicillin (Amoxicillin 500 Mg Capsule) 500 mg PO Q6H [facility] Last Admin: 01/17/22 09:24 Dose: 500 mg Documented By: PRIMO Buprenorphine/Naloxone (Buprenorphine/Naloxone 2/0.5mg Film) 1 film SUBLINGUAL DAILY [facility] Last Admin: 01/17/22 09:26 Dose: 1 film Documented By: PRIMO Folic Acid (Folic Acid 1 Mg Tablet) 1 mg PO DAILY [facility] Last Admin: 01/17/22 09:25 Dose: 1 mg Documented By: PRIMO Guaifenesin (Guaifenesin 100 Mg/5 Ml Liquid) 10 ml PO Q6H PRN PRN Reason: Cough Last Admin: 01/17/22 11:39 Dose: 10 ml Documented By: PRIMO Labetalol HCl (Labetalol Hcl 100 Mg Tablet) 100 mg PO BID [facility]; Protocol Last Admin: 01/17/22 09:30 Dose: Not Given Documented By: PRIMO Non-Admin Reason: verbal order from to hold Magn[facility] ([facility] 400 Mg [facility]t) [facility] Multivitamins/Vitamin C (Multivitamin Tablet) 1 tab PO DAILY [facility] Last Admin: 01/17/22 09:24 Dose: 1 tab Documented By: PRIMO Nicotine (Nicotine 21 Mg Patch.Td24) 21 mg TRANSDERMA DAILY [facility] Last Admin: 01/17/22 09:26 Dose: 21 mg Documented By: PRIMO Omeprazole (Omeprazole 20 Mg Capsule.Dr) 20 mg PO DAILY@0630 [facility] Last Admin: 01/17/22 05:37 Dose: 20 mg Documented By: CHAVO Pharmacy Consult (Consult Rx Etoh Phenob Im/Po) 0 each MISCELLANE ONCE PRN; Protocol PRN Reason: Consult order Phenobarbital (Phenobarbital 30 Mg Tablet) 60 mg PO BID [facility] Stop: 01/18/22 21:01 Last Admin: 01/17/22 09:24 Dose: 60 mg Documented By: PRIMO Phenobarbital (Phenobarbital 30 Mg Tablet) 30 mg PO BID [facility] Stop: 01/20/22 21:01 Phenobarbital (Phenobarbital 30 Mg Tablet) 30 mg PO DAILY [facility] Stop: 01/22/22 09:01 Sodium Chloride (0.9 % Sodium Chloride Flush 3 Ml Syringe) 3 ml IVFLUSH QSHIFT [facility] Last Admin: 01/17/22 09:26 Dose: 3 ml Documented By: PRIMO Thiamine HCl (Thiamine Hcl 100 Mg Tablet) 100 mg PO DAILY [facility] Last Admin: 01/17/22 09:25 Dose: 100 mg Documented By: PRIMO Labs CBC & Chem 7: 01/17/22 08:39 01/17/22 08:39 Labs: Laboratory Results - last 24 hr 01/16/22 01/16/22 01/16/22 12:53 12:59 12:59 MCV 98.8 H MCH 34.8 H MCHC 35.2 RDW 12.3 Plt Count 77 L MPV 11.2 Immature Gran % (Auto) 0.0 Neut % (Auto) 60.4 Lymph % (Auto) 23.1 [place] % (Auto) 13.7 H Eos % (Auto) 1.9 Baso % (Auto) 0.9 Lymph # (Auto) 0.5 L [place] # (Auto) 0.3 Eos # (Auto) 0.0 Baso # (Auto) 0.0 Abs Immat Gran (auto) 0.00 Absolute Neuts (auto) 1.3 L Absolute Nucleated RBC 0.000 Nucleated RBC % (auto) 0.0 D-Dimer High Sensitivty < 150 Anion Gap Estim Creat Clear Calc Estimated GFR Random Glucose Calcium Magnesium Total Bilirubin Direct Bilirubin AST ALT Alkaline Phosphatase Ammonia Troponin I High Sens B-Natriuretic Peptide Total Protein Albumin Urine Opiates Screen Urine Fentanyl Screen Ur Barbiturates Screen Ur Phencyclidine Scrn Ur Amphetamines Screen U Benzodiazepines Scrn Urine Cocaine Screen U Marijuana (THC) Screen Ethyl Alcohol COVID-19 ([facility]) Positive A COVID-19 Clin Com See Note 01/16/22 01/16/22 01/16/22 12:59 12:59 12:59 MCV MCH MCHC RDW Plt Count MPV Immature Gran % (Auto) Neut % (Auto) Lymph % (Auto) [place] % (Auto) Eos % (Auto) Baso % (Auto) Lymph # (Auto) [place] # (Auto) Eos # (Auto) Baso # (Auto) Abs Immat Gran (auto) Absolute Neuts (auto) Absolute Nucleated RBC Nucleated RBC % (auto) D-Dimer High Sensitivty Anion Gap 14 Estim Creat Clear Calc 192.6 Estimated GFR > 60 Random Glucose 104 Calcium 8.7 D Magnesium 1.5 L Total Bilirubin 2.1 H Direct Bilirubin AST 353 H ALT 180 H Alkaline Phosphatase 237 H D Ammonia Troponin I High Sens < 3.5 B-Natriuretic Peptide 21 Total Protein 6.0 L Albumin 3.9 Urine Opiates Screen Urine Fentanyl Screen Ur Barbiturates Screen Ur Phencyclidine Scrn Ur Amphetamines Screen U Benzodiazepines Scrn Urine Cocaine Screen U Marijuana (THC) Screen Ethyl Alcohol < 10 COVID-19 ([facility]) COVID-19 Clin Com 01/16/22 01/16/22 01/17/22 13:05 17:11 08:39 MCV 98.4 H MCH 34.4 H MCHC 34.9 RDW 12.0 Plt Count 65 L MPV 11.3 Immature Gran % (Auto) Neut % (Auto) Lymph % (Auto) [place] % (Auto) Eos % (Auto) Baso % (Auto) Lymph # (Auto) [place] # (Auto) Eos # (Auto) Baso # (Auto) Abs Immat Gran (auto) Absolute Neuts (auto) Absolute Nucleated RBC 0.000 Nucleated RBC % (auto) 0.0 D-Dimer High Sensitivty Anion Gap Estim Creat Clear Calc Estimated GFR Random Glucose Calcium Magnesium Total Bilirubin Direct Bilirubin AST ALT Alkaline Phosphatase Ammonia 41 Troponin I High Sens B-Natriuretic Peptide Total Protein Albumin Urine Opiates Screen Not Detected Urine Fentanyl Screen Not Detected Ur Barbiturates Screen POSITIVE H Ur Phencyclidine Scrn Not Detected Ur Amphetamines Screen Not Detected U Benzodiazepines Scrn Not Detected Urine Cocaine Screen Not Detected U Marijuana (THC) Screen POSITIVE H Ethyl Alcohol COVID-19 ([facility]) COVID-19 Clin Com 01/17/22 08:39 MCV MCH MCHC RDW Plt Count MPV Immature Gran % (Auto) Neut % (Auto) Lymph % (Auto) [place] % (Auto) Eos % (Auto) Baso % (Auto) Lymph # (Auto) [place] # (Auto) Eos # (Auto) Baso # (Auto) Abs Immat Gran (auto) Absolute Neuts (auto) Absolute Nucleated RBC Nucleated RBC % (auto) D-Dimer High Sensitivty Anion Gap 14 Estim Creat Clear Calc 228.3 Estimated GFR > 60 Random Glucose 92 Calcium 8.5 Magnesium Total Bilirubin 2.4 H Direct Bilirubin 1.6 H AST 264 H ALT 145 H Alkaline Phosphatase 216 H Ammonia Troponin I High Sens B-Natriuretic Peptide Total Protein 5.2 L Albumin 3.5 Urine Opiates Screen Urine Fentanyl Screen Ur Barbiturates Screen Ur Phencyclidine Scrn Ur Amphetamines Screen U Benzodiazepines Scrn Urine Cocaine Screen U Marijuana (THC) Screen Ethyl Alcohol COVID-19 ([facility]) COVID-19 Clin Com Assessment and Plan (1) Elevated blood pressure reading: Status: Acute (2) Thrombocytopenia: Status: Acute (3) Leucopenia: Status: Acute (4) COVID: Status: Acute (5) Alcohol withdrawal: Status: Acute Plan 32-year-old male with history of alcohol use, substance abuse in the past on Suboxone, also has history of peripheral neuropathy:? Came with alcohol withdrawal. 1. Alcohol withdrawal: Continue phenobarb protocol, thiamine, folic acid. CIWA scale 2. Transaminitis possibly related to alcohol use. improving Monitor LFTs closely. 3. Peripheral neuropathy: Continue multivitamins. 4. DVT prophylaxis:? Mechanical devices. 5. Substance abuse:? Continue Suboxone. 6. leucopenia/thrombocytopenia: platlets lsightly trending down 65 no gross bleeding or eccymosis possible realted to alcohol use. moniter cbc . 7. Sinusitis :continue antibiotics. 8.covid:no sob has lot of cough, some chest soarness , headcahes continue symptomatic rx -cough meds,tylenol 9.elevated blood pressure : improving possible sec to alcohol withdrawal-moniter blood pressure , low sodium diet . inpatient need:Alcohol withdrawal-on phenobarb protocol, CIWA monitoring, monitor LFTs and CBC . Quality Stroke Does the patient have a stroke diagnosis?: No VTE Prior VTE?: No VTE Risk Level:: Medical - moderate - high VTE Device Contraindication: N/A - Device Ordered VTE Drug Contraindication: N/A - Med Ordered
--- NOTE | 2022-01-17 12:42 | PC.NURSE ---
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
[2022-01-17] MEDS: ondansetron HCL 4 MG/2 ML VIAL IVPUSH (12:51)
[2022-01-17] MEDS: Magnesium Oxide 400 MG TABLET PO (16:48)
--- NOTE | 2022-01-17 16:52 | PC.NURSE ---
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
[2022-01-17] MEDS: Labetalol HCL 100 MG TABLET PO (22:28)
--- NOTE | 2022-01-17 22:47 | PC.NURSE ---
report called charge notified
[2022-01-18] MEDS: 0.9 % Sodium Chloride Flush 3 ML SYRINGE IVFLUSH ×2 (02:30→10:56)
[2022-01-18 04:48] VITALS: BP 128/74; PULSE 64; RESP 18; TEMP 37; O2SAT 93
[2022-01-18] MEDS: Amoxicillin 500 MG CAPSULE PO ×2 (05:27→10:55)
[2022-01-18] MEDS: Omeprazole 20 MG CAPSULE.DR PO (05:27)
[2022-01-18 08:05] VITALS: BP 111/78; PULSE 73; RESP 13; TEMP 36.3; O2SAT 95
--- NOTE | 2022-01-18 10:24 | P.CDIC_ITS ---
CDI Concurrent Query Documentation Clarification: PHYSICIAN'S DOCUMENTATION REQUEST Date of Query: 01/18/22 1024 Patient Name: Marvel Vizcarra Admit Date: 01/16/22 Dear Doctor, A review of the medical record indicates additional documentation may be needed. Please review below and update the documentation accordingly. Clinical Indicators: Risk Factors/Clinical Indicators/Treatments Labs: magnesium 1.5 IV magnesium given in the ED. Based on the above, could you clarify in the Progress Notes the appropriate diagnosis, if significant, that supports the above abnormalities and additional evaluation, monitoring, and/or treatment rendered: Based on the above clinical indicators could you provide an associated diagnosis that would support the low magnesium? * Labs indicate a diagnosis of (please specify) * Other (please specify) * Unable to determine Use of terms such as suspected, likely, concern for, or probable (associated with a specific diagnosis that is being evaluated, monitored, or treated as if it exists) are acceptable and can be coded in the inpatient setting, when documented at the time of discharge. Thank you, Fide Botello [facility], [facility] Extension: [phone] Please use your independent medical judgment in providing your response. THIS QUERY IS PART OF THE PERMANENT MEDICAL RECORD Provider Response: Other Other Diagnosis: Hypomagnesemia
[2022-01-18 10:39] LABS: Hematocrit 39.3 % (42.0-52.0); Hemoglobin 14.1 g/dl (14.0-18.0); Mean Corpuscular HGB Conc 35.9 g/dl (31.0-36.0); Mean Corpuscular Hemoglobin 35.1 pg (27.0-33.0); Mean Corpuscular Volume 97.8 fL (80.0-98.0); Mean Platelet Volume 11.2 fL (9.4-12.4); Red Blood Count 4.02 X10*6/uL (4.60-5.80); Red Cell Distribution Width 12.3 % (11.0-16.0)
[2022-01-18 10:40] LABS: Platelet Count 76 X10*3/uL (160-400); White Blood Count 2.4 X10*3/uL (4.8-10.8)
[2022-01-18] MEDS: PHENobarbitaL 30 MG TABLET 60 MG PO (10:55)
[2022-01-18] MEDS: Multivitamin TABLET 1 TAB PO (10:55)
[2022-01-18] MEDS: Magnesium Oxide 400 MG TABLET PO (10:55)
[2022-01-18] MEDS: Folic Acid 1 MG TABLET PO (10:55)
[2022-01-18] MEDS: Nicotine 21 MG PATCH.TD24 TRANSDERMA (10:56)
[2022-01-18] MEDS: Thiamine HCL 100 MG TABLET PO (10:56)
[2022-01-18] MEDS: Labetalol HCL 100 MG TABLET PO (10:56)
[2022-01-18 11:01] VITALS: BP 135/97; PULSE 72; RESP 14; TEMP 36.3; O2SAT 95
[2022-01-18] MEDS: Buprenorphine/Naloxone 2/0.5mg FILM 1 FILM SUBLINGUAL (12:01)
[2022-01-18] MEDS: guaiFENesin 100 MG/5 ML LIQUID 10 ML PO (12:46)
--- NOTE | 2022-01-18 13:15 | P.DS_ITS ---
DS: Providers Provider Date of Service: 01/18/22 Date of admission: 01/16/22 15:11 Primary care physician: Zander Coughlin MD Consults: 01/18/22 09:58 Addiction Medicine Routine Consulting Provider: Addiction Covering Reason for consultation: alcohol abuse Has provider been notified: No DS: Diagnosis Discharge Diagnosis (1) Elevated blood pressure reading: Status: Acute (2) Thrombocytopenia: Status: Acute (3) Leucopenia: Status: Acute (4) COVID: Status: Acute (5) Alcohol withdrawal: Status: Acute (6) Hypomagnesemia: Status: Acute DS: Summary Hospital Course Hospital Course: 32-year-old male with history of alcohol use, substance abuse in the past on Suboxone, also has history of peripheral neuropathy:? He currently drinks every other day 6-7 vodka drinks-come to the hospital, in additionfatigue, malaise, shortness of breath for few days- as per ED physician tested positive for COVID at home a few days ago.? He reports that pleuritic pain is worse with inspiration, reports shortness of breath both at rest and with exertion.? In addition noted to be tremulous, diaphoretic, anxious I asked patient if he drinks alcohol he tells me he drinks regularly a six-pack a day if not more. He reported Pfizer vaccine time to last year.? Denies any bodies sick family member or recent travel. Denies any new complaint of abdominal pain or fever or chills or nausea or vomiting Denies any cough Denies any weakness or numbness. Lab imaging reviewed: CBC proceed full chronic leukopenia, also has thrombocytopenia slightly worsened than baseline. Elevated LFTs Chest x-ray negative D-dimer and negative. Hospital course: Patient came to the hospital because of alcohol withdrawal also found to have COVID positive. Patient was started on phenobarb protocol seems to be improved significantly. COVID: Seems asymptomatic except some cough, we will give cough medication. Thrombocytopenia/leukopenia: Seems chronic but thrombocytopenia is slightly worse than baseline(possible alcohol use might be contributing.), monitor CBC with PCP in 1 week and further management as per PCP, no gross bleeding or bruising. Transaminitis: Slowly improving: Monitor LFTs outpatient in 1 week and further management outpatient. plan:As above. Monitor CBC and LFT outpatient Strongly encouraged to abstain from alcohol. Follow-up with PCP in 1 week. Above management discussed with the patient in detail length he understand and in agreement with the above plan, time spent 50 minutes and 50% time spent on counseling. Significant findings: As above. Procedures performed: None. Treatment and response: As above. Complications: None. Time Spent with Patient Time attestation: Total time spent providing and/or coordinating discharge services: Discharge coordination time: Greater than 30 minutes Quality: Safe Use of Opioids Does Pt have an Active Cancer Diagnosis on the Problem List?: No Quality: Stroke Does the patient have a stroke diagnosis?: No Physical Exam Vital Signs: Vital Signs: Last Vital Signs Temp 97.3 F 01/18/22 11:01 Pulse 72 01/18/22 11:01 Resp 14 01/18/22 11:01 BP 135/97 H 01/18/22 11:01 Pulse Ox 95 01/18/22 11:01 O2 Del Method 01/18/22 11:01 BMI result Body Mass Index 24.7 Appearance: Alert.? Oriented X3.?Tramulous Eyes: Pupils equal, round and reactive to light.? Sclera nonicteric.? ENT: Pharynx normal.? Moist mucous membranes. cvs: rrr, [id number] . res: clear to auscultation ,no rhonchii or wheezing abd: no rebound or guarding ,nt, bs present. ext pulses present , no cyanosis . neuro: axo3 , nonfocal. DS: Data Data Completed and Pending Labs on day of discharge: Laboratory Results - last 24 hr 01/18/22 10:21 WBC 2.4 L RBC 4.02 L Hgb 14.1 Hct 39.3 L MCV 97.8 MCH 35.1 H MCHC 35.9 RDW 12.3 Plt Count 76 L MPV 11.2 Absolute Nucleated RBC 0.000 Nucleated RBC % (auto) 0.0 Imaging Chest x-ray: Radiologist's impression: ITS Impressions Chest X-Ray 01/16/22 11:28 IMPRESSION: No acute cardiopulmonary process. Discharge Plan Discharge Anticipated Discharge Date/Time: 01/18/22 13:02 Patient Disposition: Home, Self-Care Discharge Diagnosis: Alcohol withdrawal, transaminitis, leukopenia and thrombocytopenia Referrals: Zander Coughlin MD [Primary Care Provider] - 1 Week Discharge Medications: New thiamine mononitrate (vit B1) 100 mg Tablet 100 mg PO DAILY Qty: 30 0RF folic acid 1 mg Tablet 1 mg PO DAILY Qty: 30 0RF guaifenesin 100 mg/5 mL Liquid 100 mg PO Q6H PRN (Reason: Cough) Qty: 473 0RF magnesium oxide 400 mg (241.3 mg magnesium) Tablet 400 mg PO BIDPC Qty: 10 0RF nicotine 21 mg/24 hr Patch 24 Hour 21 mg transdermal DAILY Qty: 7 0RF Continued amoxicillin 500 mg capsule 1 cap PO Q6H Rx Instructions: started on 01/11/22 x 7 days vitamin B complex Tablet 1 tab PO DAILY omeprazole 20 mg capsule,delayed release(DR/EC) 20 mg PO DAILY@0630 buprenorphine-naloxone 2-0.5 mg film 1 film sublingual DAILY Discharge Orders: Discharge Order (Routine); Ordered 01/18/22 Ordered By: Angel Puga Diet: Advance to usual diet Activity on Discharge: As tolerated Stand Alone Forms: Patient Portal Discharge page Other Ambulatory Orders: Complete Blood Count no Diff (Routine) Timeframe: 1 Week Facility: [facility] - Location: Laboratory Ordered By: Angel Puga Liver Panel (Routine) Timeframe: 1 Week Facility: [facility] - Location: Laboratory Ordered By: Angel Puga Magnesium (Routine) Timeframe: 1 Week Facility: [facility] - Location: Laboratory Ordered By: Angel Puga Care Plan Goals: Patient came to the hospital because of alcohol withdrawal also found to have COVID positive. Patient was started on phenobarb protocol seems to be improved significantly. COVID: Seems asymptomatic except some cough, we will give cough medication. Thrombocytopenia/leukopenia: Seems chronic but thrombocytopenia is slightly worse than baseline(possible alcohol use might be contributing.), monitor CBC with PCP in 1 week and further management as per PCP, no gross bleeding or bruising. Transaminitis: Slowly improving: Monitor LFTs outpatient in 1 week and further management outpatient. Health Concerns: As above. Monitor CBC and LFT outpatient Strongly encouraged to abstain from alcohol. Follow-up with PCP in 1 week. Plan of Treatment: As above. Assessment: As above. Patient Instructions: Thrombocytopenia (DC)
--- NOTE | 2022-01-18 13:17 | MHC.CM.PN ---
Patient has been medically cleared for dc to home today, self care.
--- NOTE | 2022-01-20 14:14 | MHC.RECOVRN ---
On 01/18/22, this group underwriter received Addiction Consult for pt, however, pt had discharged from the hospital before ACS team received consult. Provider aware.
== END 2022-01-18 16:24 | disposition home or self-care (01) | DRG 137 ==
LOC: HO.ED 13:43 → HO.EDOVER 15:20
PROVIDERS: Physician Assistant; Admitting Provider Internal Medicine; Emergency Provider Emergency Medicine; PCP Internal Medicine; Visit Provider Internal Medicine
DX: U07.1 COVID-19 (principal); D69.6 Thrombocytopenia, unspecified; D72.829 Elevated white blood cell count, unspecified; J32.9 Chronic sinusitis, unspecified; E83.42 Hypomagnesemia; G62.9 Polyneuropathy, unspecified; F10.939 Alcohol use, unspecified with withdrawal, unspecified; F11.20 Opioid dependence, uncomplicated; F17.210 Nicotine dependence, cigarettes, uncomplicated; Z71.6 Tobacco abuse counseling; Z28.311 Partially vaccinated for COVID-19; Z79.899 Other long term (current) drug therapy
CPT/HCPCS: 36415; 71045; 80048; 80053; 80076; 80307; 82077; 82140; 83735; 83880; 84484; 85025; 85027; 85379; 87635; 93005; 99285; J2405; J2560; J3475

== ENCOUNTER 2022-05-11 12:52 | Outpatient (REF) | payer OTHER, SELFPAY ==
[2022-05-11 14:15] LABS: MANUAL DIFF FLAG NO
[2022-05-11 14:23] LABS: Basophils Percent Auto 0.8 % (0-2); Eosinophils Absolute Auto 0.1 X10*3/uL (0.0-0.4); Eosinophils Percent Auto 1.5 % (0-4); Hematocrit 52.3 % (42.0-52.0); Hemoglobin 18.4 g/dl (14.0-18.0); Lymphocytes Absolute Auto 1.3 X10*3/uL (1.2-4.9); Lymphocytes Percent Auto 23.9 % (20-40); Mean Corpuscular HGB Conc 35.2 g/dl (31.0-36.0); Mean Platelet Volume 10.7 fL (9.4-12.4); Monocytes Absolute Auto 0.6 X10*3/uL (0.1-1.2); Monocytes Percent Auto 10.8 % (2-11); Neutrophils Absolute Auto 3.3 x10*3/uL (2.0-8.3); Platelet Count 179 X10*3/uL (160-400); Red Blood Count 5.94 X10*6/uL (4.60-5.80); Red Cell Distribution Width 11.3 % (11.0-16.0); White Blood Count 5.3 X10*3/uL (4.8-10.8)
[2022-05-11 14:40] LABS: Alanine Aminotransferase 95 U/L (0-40); Albumin Level 4.9 g/dL (3.5-5.0); Alkaline Phosphatase 170 U/L (39-117); Anion Gap 18 (12-20); Aspartate Amino Transferase 146 U/L (5-37); Bilirubin Total 1.9 mg/dL (0.0-1.0); Blood Urea Nitrogen 5 mg/dL (9-16); Calcium 9.9 mg/dL (8.4-10.2); Carbon Dioxide 26 mmol/L (22-29); Chloride 100 mmol/L (96-108); Estimated Glomerular Filt Rate > 60; Glucose Random 131 mg/dL (60-115); Magnesium 1.9 mg/dL (1.6-2.6); Potassium 3.9 mmol/L (3.3-5.1); Sodium 140 mmol/L (135-145); Total Protein 7.5 g/dL (6.5-8.0)
[2022-05-11 15:06] LABS: Vitamin B12 528 pg/mL (200-900)
== END 2022-05-11 12:53 | disposition home or self-care (01) ==
LOC: HO.HMGCLDS 12:52
PROVIDERS: PCP Internal Medicine; Visit Provider Internal Medicine
DX: F10.20 Alcohol dependence, uncomplicated (principal); R20.2 Paresthesia of skin; R29.6 Repeated falls; R79.89 Other specified abnormal findings of blood chemistry; E83.42 Hypomagnesemia
CPT/HCPCS: 36415; 80053; 82607; 83735; 85025

== ENCOUNTER 2022-05-27 08:10 | Outpatient (REF) | payer OTHER, SELFPAY ==
--- NOTE | 2022-05-27 08:14 | EMG_ITS ---
Left tibial and peroneal motor studies were performed. Left sural and superficial peroneal studies were performed. Tibial H-reflex was obtained. Median and lateral plantar sensory studies were performed and needle examination was performed. IMPRESSION: Mild to moderate axonal sensory motor peripheral neuropathy. MD COMPA Kumar/LINUSL / [id number]
== END 2022-05-27 08:11 | disposition home or self-care (01) ==
LOC: HO.NEURO 08:10
PROVIDERS: PCP Internal Medicine; Visit Provider Internal Medicine
DX: R20.2 Paresthesia of skin (principal)
CPT/HCPCS: 95886; 95910

== ENCOUNTER 2022-06-21 12:01 | Outpatient (REF) | payer OTHER, SELFPAY ==
--- NOTE | ~2022-06-21 | XR_ITS ---
EXAMINATION: XR RIBS, RIGHT CLINICAL INFORMATION: Contusion of right frontal wall COMPARISON: None available. TECHNIQUE: 3 views of the right ribs were obtained. FINDINGS: Lungs are clear. No consolidation, pneumothorax, or pleural effusion. The cardiomediastinal silhouette and pulmonary vasculature are normal. Multiple views of right ribs reveal minimally displaced fractures right posterolateral sixth, seventh ribs. No additional fracture seen. There is no pneumothorax.. XR/XR ribs RT min 3V w CXR1V IMPRESSION: Minimally displaced fractures right posterolateral sixth, seventh ribs. There is no pneumothorax. The lungs are clear.
== END 2022-06-21 12:02 | disposition home or self-care (01) ==
LOC: HO.HMGCX 12:01
PROVIDERS: Visit Provider Internal Medicine
DX: S20.211A Contusion of right front wall of thorax, initial encounter (principal); X58.XXXA Exposure to other specified factors, initial encounter; Y93.9 Activity, unspecified; Y92.9 Unspecified place or not applicable; Y99.9 Unspecified external cause status
CPT/HCPCS: 71101

== ENCOUNTER 2022-07-30 14:15 | Outpatient (REF) | payer OTHER, SELFPAY ==
--- NOTE | ~2022-07-30 | XR_ITS ---
EXAMINATION: XR CLAVICLE, LEFT CLINICAL INFORMATION: Bone disorder shoulder. COMPARISON: 11/12/2021. TECHNIQUE: 2 views of the left clavicle. FINDINGS: There has been removal of hardware that had been placed for previous clavicle fracture. No acute fracture or dislocation is evident. There is calcification of the coracoclavicular ligament. There is no change in appearance of the coracoclavicular space. No significant degenerative change of the acromioclavicular joint is appreciated. Visualized portions of the shoulder appear unremarkable. XR/XR clavicle LT IMPRESSION: Status post hardware removal for distal left clavicle fracture as described.
== END 2022-07-30 14:16 | disposition home or self-care (01) ==
LOC: HO.HOSX 14:15
PROVIDERS: Visit Provider Physician Assistant
DX: M89.8X1 Other specified disorders of bone, shoulder (principal); Z98.890 Other specified postprocedural states
CPT/HCPCS: 73000; 99212

== ENCOUNTER → 2022-09-20 14:23 | Outpatient (BNVA) | payer OTHER, SELFPAY | PROVIDERS: PCP Internal Medicine; Visit Provider Psychiatry & Neurology Neurology | DX: G62.9 Polyneuropathy, unspecified (principal); R27.8 Other lack of coordination | CPT/HCPCS: 99202 ==

== ENCOUNTER 2022-11-24 12:38 | Outpatient (AMB) | payer OTHER, SELFPAY ==
--- NOTE | 2022-11-24 13:49 | MHC.OFFWIV ---
Intake Vital Signs 11/24/22 13:50 Height 6 ft 2 in Weight 209 lb BMI 26.8 BP 132/74 Blood Pressure Location Rt brachial Position Sitting Pulse 74 Pulse Source Pulse Oximeter Temp 98.0 F Temp Source Temporal Artery Scan Pulse Oximetry (%) 98 Intake Visit Reasons: EP, vomiting, diarrhea [phone] Intake Note: pt is here forc/o vomiting and diarrhea for 3 days Patient Tobacco Use Status: Former Tobacco user Allergies No Known Allergies Allergy (Verified 11/24/22 14:28) Medication List - Last Reconciled 11/24/22 by Basilio Rubio MD atenolol 25 mg PO DAILY 90 days buprenorphine-naloxone 2-0.5 mg 1 film sublingual DAILY gabapentin 100 mg PO BID lidocaine 5% 1 patch topical DAILY omeprazole 20 mg PO DAILY Do you need a note to return to daycare/school/sports/work: Yes HPI EP, vomiting, diarrhea ([phone] HPI Details 32-year-old male presents to the office for a sick visit. Patient is complaining of vomiting and diarrhea for the past 2 days. Patient is passing dark-colored stool. Unable to keep food down. Patient drinks alcohol regularly. On Tuesday he had large quantities of alcohol and symptoms started after. He has not had a drink since Tuesday. [facility] Medical History (Updated 11/24/22 @ 14:32 by Basilio Rubio MD) Abnormal complete blood count Abnormal liver enzymes Alcohol abuse Clavicle fracture Foot pain, bilateral Neuropathy No known health problems Sensory ataxia Surgical History Hx of skin graft Family History Paternal Grandfather Cancer Paternal Grandmother Cancer Social History Housing: Condominium Alcohol intake: current Alcohol intake frequency: 3 or more drinks per day Alcohol type: beer Patient Tobacco Use Status: Former Tobacco user Cigarettes Per Day: 8 Years Smoked: 10 e-Cigarette/Vaping Use: Currently Using Substance Use Type: Marijuana service: No 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 status: 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 Physical Exam Vital Signs: Last Vital Signs Temp 98.0 F 11/24/22 13:50 Pulse 74 11/24/22 13:50 BP 132/74 11/24/22 13:50 Pulse Ox 98 11/24/22 13:50 BMI result Body Mass Index 26.8 Const General: cooperative and healthy appearing Nutritional Appearance: well nourished Orientation/consciousness: patient oriented x3 Limitations: no limitations HEENT Head: Yes normal to inspection Eyes General: appearance normal, both eyes and all related structures Neck Neck: Yes normal visual inspection Chest Chest palpation & inspection: normal palpation of entire chest wall Resp Effort & Inspection: normal respiratory effort Neuro General: patient oriented x3 Assessment & Plan Assessment & Plan (1) Diarrhea: Code(s): R19.7 - Diarrhea, unspecified Plan: Symptoms are due to alcohol. Patient was advised to stop drinking. PPIs added to the regimen. Blood work has been ordered. If symptoms are persisting, I recommended that he proceed to the emergency room. Coding Level of Care Code Est Pt Level 4 (36748) Diagnoses Diarrhea R19.7
[2022-11-24 13:50] VITALS: BP 132/74; PULSE 74; TEMP 36.7; O2SAT 98; BMI 26.8
== END 2022-11-24 14:40 | disposition home or self-care (01) ==
PROVIDERS: PCP Internal Medicine; Visit Provider Internal Medicine
DX: R19.7 Diarrhea, unspecified (principal)
CPT/HCPCS: 99214

== ENCOUNTER 2022-12-14 15:18 | Outpatient (AMB) | payer OTHER, SELFPAY ==
[2022-12-14 15:29] VITALS: BP 132/70; PULSE 75; O2SAT 97; BMI 27.2
--- NOTE | 2022-12-14 15:29 | A.OFFPC_ITS ---
Vital Signs 12/14/22 15:29 Height 6 ft 2 in Weight 212 lb 2 oz BMI 27.2 BP 132/70 Blood Pressure Location Lt brachial Position Sitting Pulse 75 Pulse Source Pulse Oximeter Pulse Oximetry (%) 97 Oxygen Delivery Method Room Air Intake Visit Reasons: 3 month follow up Allergies No Known Allergies Allergy (Verified 12/14/22 15:30) Medication List - Last Reconciled 12/14/22 by Zander Coughlin MD atenolol 25 mg PO DAILY 90 days buprenorphine-naloxone 2-0.5 mg 1 film sublingual DAILY gabapentin 100 mg PO BID lidocaine 5% 1 patch topical DAILY omeprazole 20 mg PO DAILY Tobacco use date assessed: 12/14/22 Dental Screening Dental Screen Date: 12/14/22 Did you have a dental visit in the last 12 months?: Yes Did you have a dental problem in the last 6 months where you did not have access to dental care?: No Was dental information given to patient?: Patient has dentist HPI 3 month follow up HPI Details Patient is a 32-year-old gentleman came in today for his regular follow-up appointment Patient still has done labs, he said that he did not know he had to do labs. Reminded again he will have it done in the morning. LFT elevation: Most likely secondary to alcohol abuse. Hypertension: Blood pressure is stable patient is on atenolol 25 mg, no side effects. Patient is also taking gabapentin 100 mg b.i.d. for alcoholic peripheral neuropathy he has appointment with the neurologist coming up next week. Continued to have abdominal discomfort off and on, he is taking omeprazole 20 mg, discussed the use of alcohol and stomach pains. He says that it is difficult for him to stop because he has been drinking for so long Follow-up in February [facility] Medical History Neuropathy Sensory ataxia Clavicle fracture Alcohol abuse Foot pain, bilateral Abnormal complete blood count Abnormal liver enzymes No known health problems Surgical History Hx of skin graft Family History Paternal Grandfather Cancer Paternal Grandmother Cancer Social History Housing: Condominium Alcohol intake: current Alcohol intake frequency: 3 or more drinks per day Alcohol type: beer Patient Tobacco Use Status: Former Tobacco user Cigarettes Per Day: 8 Years Smoked: 10 e-Cigarette/Vaping Use: Currently Using Substance Use Type: Marijuana service: No 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 status: 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 1. Little interest or pleasure in doing things: not at all 2. Feeling down, depressed, or hopeless: several days 3. Trouble falling or staying asleep, or sleeping too much: more than half the days 4. Feeling tired or having little energy: several days 5. Poor appetite or overeating: not at all 6. Feeling bad about yourself - or that you are a failure or have let yourself or your family down: several days 7. Trouble concentrating on things, such as reading the newspaper or watching television: not at all 8. Moving or speaking so slowly that other people could have noticed. Or the opposite - being so fidgety or restless that you have been moving around a lot more than usual: not at all 9. Thoughts that you would be better off or of hurting yourself in some way: several days Total score: 6 Depression Screening Interpretation: Negative 30456 - PHQ-9 Billing: Yes Source: Developed by Drs. Michele Braswell, Andree Rodriguez, Niles Meléndez and colleagues, with an educational kel from [employer]. Thrive Questionnaire Date Thrive assessed: 12/14/22 I am a: Patient What is your living situation today?: I have a place to live, but I am worried about losing it in the future Within the past 12 months, did the food you bought not last and you didn't have the money to get more?: Sometimes True Within the past 12 months, did you worry whether your food would run out before you got money to buy more?: Sometimes True Do you have trouble paying for medicines?: No Do you have trouble getting transportation to medical appointments?: No Do you have trouble paying your heating and electricity bill?: No Do you have trouble taking care of your child, family member or friend?: No Do you have trouble with day-to-day activities such as bathing, preparing meals, shopping, managing finances, etc.?: No Are you currently unemployed and looking for a job?: No Are you interested in more education?: No Currently or been in a relationship where the following occur: no concerns reported AUDIT C Alcohol Use Questionnaire (AUDIT-C) 1. How often do you have a drink containing alcohol?: 4 or more times a week 2. How many drinks containing alcohol do you have on a typical day when you are drinking?: 3 or 4 3. How often do you have six or more drinks on one occasion?: Never Total Score: 5 Score Reviewed/Action Taken: Yes CONNOR-7 AMB Questionnaire CONNOR-7 Date CONNOR - 7 assessed: 12/14/22 Feeling nervous, anxious, or on edge: 2 = More than half the days Not being able to stop or control worryin = Several days Worrying too much about different things: 1 = Several days Trouble relaxin = Several days Being so restless that it is hard to sit still: 1 = Several days Becoming easily annoyed or irritable: 1 = Several days Feeling afraid as if something awful might happen: 1 = Several days Total CONNOR-7 score (0-4 normal; 5-9 mild; 10-14 moderate; 15-21 severe): 8 Source: Developed by Drs. Michele Braswell, Andree Rodriguez, Niles Meléndez and colleagues, with an educational kel from [employer]. CONNOR-7 Assessment Billing CONNOR-7 Assessment Tool: CONNOR-7 Assessment 40094 Review of Systems Const Denies chills and Denies fever(s) ENT Denies epistaxis and Denies nasal discharge Card Denies chest pain Resp Denies chest congestion, Denies cough and Denies hemoptysis GI Denies diarrhea and Denies nausea Skin/Breast Denies rash Neuro Reports no additional complaints Psych Reports no additional complaints Endo Reports no additional complaints Physical exam (Primary Care) Vital Signs: Last Vital Signs Pulse 75 12/14/22 15:29 BP 132/70 12/14/22 15:29 Pulse Ox 97 12/14/22 15:29 Oxygen Delivery Method Room Air 12/14/22 15:29 BMI result Body Mass Index 27.2 Tobacco/Smoking Status: Tobacco use Status Tobacco use date assessed 12/14/22 12/14/22 15:30 Patient Tobacco Use Status Former Tobacco user 12/14/22 15:30 Tobacco use type 11/24/22 12:36 e-Cigarette/Vaping Use Currently Using 12/14/22 15:30 Depression Screening Interpretation: Negative Currently or been in a relationship where the following occur: no concerns reported Const General: cooperative, comfortable and no acute distress Orientation/consciousness: patient oriented x3 HENMT Head: Yes normocephalic Eyes General: appearance normal, both eyes and all related structures Neck Neck: Yes supple Resp Effort & Inspection: normal respiratory effort, no cough and no stridor Cardio Rhythm: regular rhythm Heart sounds: S1 normal heart sound present and S2 normal heart sound present Skin General skin exam: turgor normal Neuro General: patient oriented x3, tone normal and moves all extremities Extrem Right lower extremity: no edema Left lower extremity: no edema Assessment and Plan Assessment & Plan (1) Alcoholic peripheral neuropathy: Code(s): G62.1 - Alcoholic polyneuropathy (2) LFT elevation: Code(s): R79.89 - Other specified abnormal findings of blood chemistry (3) Hypertension, essential: Code(s): I10 - Essential (primary) hypertension (4) Alcoholism: Code(s): F10.20 - Alcohol dependence, uncomplicated Plan Patient is a 32-year-old gentleman came in today for his regular follow-up brayan ointment Patient still has done labs, he said that he did not know he had to do labs. Reminded again he will have it done in the morning. LFT elevation: Most likely secondary to alcohol abuse. Hypertension: Blood pressure is stable patient is on atenolol 25 mg, no side effects. Patient is also taking gabapentin 100 mg b.i.d. for alcoholic peripheral neuropathy he has appointment with the neurologist coming up next week. Continued to have abdominal discomfort off and on, he is taking omeprazole 20 mg, discussed the use of alcohol and stomach pains. He says that it is difficult for him to stop because he has been drinking for so long Follow-up in February Coding Level of Care Code Est Pt Level 4 (54482) Diagnoses Alcoholic peripheral neuropathy G62.1 LFT elevation R79.89 Hypertension, essential I10 Alcoholism F10.20 Additional Codes CONNOR-7 Assessment Billing - CONNOR-7 Assessment Tool: CONNOR-7 Assessment [id number] ([id number])
== END 2022-12-14 16:25 | disposition home or self-care (01) ==
PROVIDERS: PCP Internal Medicine; Visit Provider Internal Medicine
DX: G62.1 Alcoholic polyneuropathy (principal); R79.89 Other specified abnormal findings of blood chemistry; I10 Essential (primary) hypertension; F10.20 Alcohol dependence, uncomplicated
CPT/HCPCS: 99214

== ENCOUNTER 2022-12-15 07:03 | Outpatient (REF) | payer OTHER, SELFPAY ==
[2022-12-15 12:00] LABS: MANUAL DIFF FLAG NO
[2022-12-15 12:02] LABS: Basophils Percent Auto 1.1 % (0-2); Eosinophils Absolute Auto 0.1 X10*3/uL (0.0-0.4); Hematocrit 48.3 % (42.0-52.0); Hemoglobin 16.9 g/dl (14.0-18.0); Lymphocytes Absolute Auto 0.9 X10*3/uL (1.2-4.9); Lymphocytes Percent Auto 34.7 % (20-40); Mean Corpuscular Hemoglobin 34.6 pg (27.0-33.0); Mean Corpuscular Volume 98.8 fL (80.0-98.0); Mean Platelet Volume 10.6 fL (9.4-12.4); Monocytes Absolute Auto 0.3 X10*3/uL (0.1-1.2); Monocytes Percent Auto 11.8 % (2-11); Neutrophils Absolute Auto 1.2 x10*3/uL (2.0-8.3); Neutrophils Percent Auto 47.4 % (45-73); Platelet Count 150 X10*3/uL (160-400); Red Blood Count 4.89 X10*6/uL (4.60-5.80); Red Cell Distribution Width 12.6 % (11.0-16.0); White Blood Count 2.6 X10*3/uL (4.8-10.8)
[2022-12-15 12:38] LABS: Alanine Aminotransferase 109 U/L (0-40); Albumin Level 4.1 g/dL (3.5-5.0); Alkaline Phosphatase 150 U/L (39-117); Anion Gap 16 (12-20); Aspartate Amino Transferase 160 U/L (5-37); Bilirubin Total 0.9 mg/dL (0.0-1.0); Blood Urea Nitrogen 4 mg/dL (9-16); Calcium 9.2 mg/dL (8.4-10.2); Carbon Dioxide 25 mmol/L (22-29); Chloride 107 mmol/L (96-108); Estimated Glomerular Filt Rate > 60; Glucose Random 155 mg/dL (60-115); Potassium 3.9 mmol/L (3.3-5.1); Sodium 144 mmol/L (135-145); Total Protein 6.6 g/dL (6.5-8.0)
[2022-12-15 12:45] LABS: TSH reflex Free T4 1.81 uIU/mL (0.32-4.0)
[2022-12-15 12:47] LABS: Vitamin B12 533 pg/mL (200-900)
[2022-12-16 08:44] LABS: LDL Cholesterol Direct 119 mg/dL (<100)
[2022-12-19 16:33] LABS: Vitamin D 25-OH, D2 <4 ng/mL; Vitamin D 25-OH, D3 14 ng/mL; Vitamin D 25-OH, Total 14 ng/mL (30-100)
== END 2022-12-15 07:04 | disposition home or self-care (01) ==
LOC: HO.HMGCLDS 07:03
PROVIDERS: PCP Internal Medicine; Visit Provider Internal Medicine
DX: Z00.01 Encounter for general adult medical examination with abnormal findings (principal); G62.1 Alcoholic polyneuropathy; F10.20 Alcohol dependence, uncomplicated; I10 Essential (primary) hypertension; R79.89 Other specified abnormal findings of blood chemistry
CPT/HCPCS: 36415; 80053; 82306; 82607; 83721; 84443; 85025

== ENCOUNTER 2022-12-17 13:53 | Outpatient (AMB) | payer OTHER, SELFPAY ==
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
[2022-12-17 14:09] VITALS: BP 124/82; PULSE 80; O2SAT 98
== END 2022-12-17 14:28 | disposition home or self-care (01) ==
PROVIDERS: PCP Internal Medicine; Visit Provider Nurse Practitioner Family
DX: G62.9 Polyneuropathy, unspecified (principal); R27.8 Other lack of coordination
CPT/HCPCS: 99213

== ENCOUNTER → 2022-12-17 13:53 | Outpatient (BNVA) | payer OTHER, SELFPAY | PROVIDERS: PCP Internal Medicine; Visit Provider Nurse Practitioner Family | DX: G62.9 Polyneuropathy, unspecified (principal); R27.8 Other lack of coordination | CPT/HCPCS: 99212 ==

== ENCOUNTER 2023-03-08 15:46 | Outpatient (AMB) | payer OTHER, SELFPAY ==
[2023-03-08 16:01] VITALS: BP 118/70; PULSE 97; TEMP 36.7; O2SAT 98; BMI 28.8
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
== END 2023-03-08 16:18 | disposition home or self-care (01) ==
PROVIDERS: PCP Internal Medicine; Visit Provider Physician Assistant
DX: H66.91 Otitis media, unspecified, right ear (principal)
CPT/HCPCS: 99213

== ENCOUNTER 2023-03-15 14:53 | Outpatient (AMB) | payer OTHER, SELFPAY ==
--- NOTE | 2023-03-15 14:59 | A.OFFPC_ITS ---
Vital Signs 03/15/23 15:00 Height 6 ft 2 in Weight 216 lb 6 oz BMI 27.8 BP 132/98 H Blood Pressure Location Rt brachial Position Sitting Pulse 93 Pulse Source Pulse Oximeter Pulse Oximetry (%) 99 Oxygen Delivery Method Room Air Intake Visit Reasons: 6 month follow up Allergies No Known Allergies Allergy (Verified 03/08/23 16:02) Medication List - Last Reconciled 03/15/23 by Zander Coughlin MD amoxicillin-pot clavulanate 875-125 mg 1 tab PO BID 10 days atenolol 25 mg PO DAILY 90 days B-complex with vitamin C 1 tab PO DAILY 90 days buprenorphine-naloxone 2-0.5 mg 1 film sublingual DAILY ciprofloxacin-dexamethasone 0.3-0.1 % 4 drps otic (ears) BID 7 days gabapentin 100 mg PO BID omeprazole 20 mg PO DAILY Tobacco use date assessed: 03/15/23 Dental Screening Dental Screen Date: 03/15/23 Did you have a dental visit in the last 12 months?: Yes Did you have a dental problem in the last 6 months where you did not have access to dental care?: No Was dental information given to patient?: Patient has dentist HPI 6 month follow up HPI Details Patient is a 33-year-old gentleman came in today for his regular follow-up appointment Patient continued to drink alcohol excessively his liver enzymes are getting worse patient is aware of that we will be another set of lab. Hypertension: Blood pressure is mostly stable patient is on atenolol 25 mg, no side effects. Patient is also taking gabapentin 100 mg b.i.d. for alcoholic peripheral neuropathy Continued to have abdominal discomfort off and on, he is taking omeprazole 20 mg, discussed the use of alcohol and stomach pains. He says that it is difficult for him to stop because he has been drinking for so long Follow-up [facility] months [facility] History Neuropathy Sensory ataxia Clavicle fracture Alcohol abuse Foot pain, bilateral Abnormal complete blood count Abnormal liver enzymes No known health problems Surgical History Hx of skin graft Family History Paternal Grandfather Cancer Paternal Grandmother Cancer Social History Housing: Condominium Alcohol intake: current Alcohol intake frequency: 3 or more drinks per day Alcohol type: beer Patient Tobacco Use Status: Former Tobacco user Cigarettes Per Day: 8 Years Smoked: 10 e-Cigarette/Vaping Use: Currently Using Substance Use Type: Marijuana service: No 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 status: 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 Questionnaire Thrive Questionnaire Date Thrive assessed: 12/14/22 AUDIT C Alcohol Use Questionnaire (AUDIT-C) 1. How often do you have a drink containing alcohol?: 2-3 times a week 2. How many drinks containing alcohol do you have on a typical day when you are drinking?: 3 or 4 3. How often do you have six or more drinks on one occasion?: Never Total Score: 4 Score Reviewed/Action Taken: Yes CONNOR-7 AMB Questionnaire CONNOR-7 Date CONNOR - 7 assessed: 12/14/22 Source: Developed by Drs. Michele Braswell, Andree Rodriguez, Niles Meléndez and colleagues, with an educational kel from [employer]. Review of Systems Const Denies chills and Denies fever(s) ENT Denies epistaxis and Denies nasal discharge Card Denies chest pain Resp Denies chest congestion, Denies cough and Denies hemoptysis GI Denies diarrhea and Denies nausea Skin/Breast Denies rash Neuro Reports no additional complaints Psych Reports no additional complaints Endo Reports no additional complaints Physical exam (Primary Care) Vital Signs: Last Vital Signs Pulse 93 03/15/23 15:00 BP 132/98 H 03/15/23 15:00 Pulse Ox 99 03/15/23 15:00 Oxygen Delivery Method Room Air 03/15/23 15:00 BMI result Body Mass Index 27.8 Tobacco/Smoking Status: Tobacco use Status Tobacco use date assessed 03/15/23 03/15/23 15:01 Patient Tobacco Use Status Former Tobacco user 03/15/23 15:01 Tobacco use type 11/24/22 12:36 e-Cigarette/Vaping Use Currently Using 03/15/23 15:01 Thrive Assessment: Date of Thrive Assessment Date Thrive assessed 12/14/22 03/15/23 15:01 Const General: cooperative, comfortable and no acute distress Orientation/consciousness: patient oriented x3 HENMT Head: Yes normocephalic Eyes General: appearance normal, both eyes and all related structures Neck Neck: Yes supple Resp Effort & Inspection: normal respiratory effort, no cough and no stridor Cardio Rhythm: regular rhythm Heart sounds: S1 normal heart sound present and S2 normal heart sound present Skin General skin exam: turgor normal Neuro General: patient oriented x3, tone normal and moves all extremities Assessment and Plan Assessment & Plan (1) Alcoholism: Code(s): F10.20 - Alcohol dependence, uncomplicated (2) Thrombocytopenia: Code(s): D69.6 - Thrombocytopenia, unspecified (3) LFT elevation: Code(s): R79.89 - Other specified abnormal findings of blood chemistry (4) Major depression, recurrent: Code(s): F33.9 - Major depressive disorder, recurrent, unspecified Qualifiers: Major depression episode severity: moderate Active/Remission status: currently active Qualified Code(s): F33.1 - Major depressive disorder, recurrent, moderate (5) Alcoholic peripheral neuropathy: Code(s): G62.1 - Alcoholic polyneuropathy (6) Hypertension, essential: Code(s): I10 - Essential (primary) hypertension Plan Patient is a 33-year-old gentleman came in today for his regular follow-up appointment Patient continued to drink alcohol excessively his liver enzymes are getting worse patient is aware of that we will be another set of lab. Hypertension: Blood pressure is mostly stable patient is on atenolol 25 mg, no side effects. Patient is also taking gabapentin 100 mg b.i.d. for alcoholic peripheral neuropathy Continued to have abdominal discomfort off and on, he is taking omeprazole 20 mg, discussed the use of alcohol and stomach pains. He says that it is difficult for him to stop because he has been drinking for so long Continued to feel depressed not sure it is because of depression he is drinking or he is depressed because he is drinking Follow-up 3 months Orders: Orders Comprehensive Met. Panel Today D69.6 - Thrombocytopenia, unspecified, F10.20 - Alcohol dependence, uncomplicated, F33.9 - Major depressive disorder, recurrent, unspecified, R79.89 - Other specified abnormal findings of blood chemistry Complete Blood Count Auto Diff Today D69.6 - Thrombocytopenia, unspecified, F10.20 - Alcohol dependence, uncomplicated, F33.9 - Major depressive disorder, recurrent, unspecified, R79.89 - Other specified abnormal findings of blood chemistry Coding Level of Care Code Est Pt Level 4 (63252) Diagnoses Alcoholism F10.20 Thrombocytopenia D69.6 LFT elevation R79.89 Moderate episode of recurrent major depressive disorder F33.1 Major depression episode severity: moderate Active/Remission status: currently active Alcoholic peripheral neuropathy G62.1 Hypertension, essential I10
[2023-03-15 15:00] VITALS: BP 132/98; PULSE 93; O2SAT 99; BMI 27.8
== END 2023-03-15 16:20 | disposition home or self-care (01) ==
PROVIDERS: PCP Internal Medicine; Visit Provider Internal Medicine
DX: D69.6 Thrombocytopenia, unspecified (principal); F10.20 Alcohol dependence, uncomplicated; F33.1 Major depressive disorder, recurrent, moderate; G62.1 Alcoholic polyneuropathy; R79.89 Other specified abnormal findings of blood chemistry; I10 Essential (primary) hypertension
CPT/HCPCS: 99214

== ENCOUNTER 2023-03-16 10:14 | Outpatient (REF) | payer OTHER, SELFPAY ==
[2023-03-16 13:10] LABS: MANUAL DIFF FLAG NO
[2023-03-16 13:29] LABS: Basophils Absolute Auto 0.1 X10*3/uL (0.0-0.2); Basophils Percent Auto 0.9 % (0-2); Eosinophils Absolute Auto 0.1 X10*3/uL (0.0-0.4); Eosinophils Percent Auto 2.1 % (0-4); Hematocrit 50.5 % (42.0-52.0); Hemoglobin 17.8 g/dl (14.0-18.0); Imm Gran Abs Auto 0.01 X10*3/uL (0.00-0.03); Imm Gran Pct Auto 0.2 % (0.0-0.4); Lymphocytes Absolute Auto 1.1 X10*3/uL (1.2-4.9); Lymphocytes Percent Auto 20.5 % (20-40); Mean Corpuscular HGB Conc 35.2 g/dl (31.0-36.0); Mean Corpuscular Hemoglobin 32.9 pg (27.0-33.0); Mean Corpuscular Volume 93.3 fL (80.0-98.0); Mean Platelet Volume 11.8 fL (9.4-12.4); Monocytes Absolute Auto 0.6 X10*3/uL (0.1-1.2); Monocytes Percent Auto 11.5 % (2-11); Neutrophils Absolute Auto 3.4 x10*3/uL (2.0-8.3); Neutrophils Percent Auto 64.8 % (45-73); Platelet Count 182 X10*3/uL (160-400); Red Blood Count 5.41 X10*6/uL (4.60-5.80); Red Cell Distribution Width 10.9 % (11.0-16.0); White Blood Count 5.3 X10*3/uL (4.8-10.8)
[2023-03-16 13:43] LABS: Alanine Aminotransferase 112 U/L (0-40); Albumin Level 4.5 g/dL (3.5-5.0); Alkaline Phosphatase 170 U/L (39-117); Anion Gap 14 (12-20); Aspartate Amino Transferase 210 U/L (5-37); Bilirubin Total 1.9 mg/dL (0.0-1.0); Blood Urea Nitrogen 6 mg/dL (9-16); Calcium 9.6 mg/dL (8.4-10.2); Carbon Dioxide 28 mmol/L (22-29); Chloride 102 mmol/L (96-108); Estimated Glomerular Filt Rate > 60; Glucose Random 133 mg/dL (60-115); Potassium 4.1 mmol/L (3.3-5.1); Sodium 140 mmol/L (135-145); Total Protein 7.3 g/dL (6.5-8.0)
== END 2023-03-16 10:15 | disposition home or self-care (01) ==
LOC: HO.HMGCLDS 10:14
PROVIDERS: PCP Internal Medicine; Visit Provider Internal Medicine
DX: F10.20 Alcohol dependence, uncomplicated (principal); D69.6 Thrombocytopenia, unspecified; R79.89 Other specified abnormal findings of blood chemistry; F33.9 Major depressive disorder, recurrent, unspecified
CPT/HCPCS: 36415; 80053; 85025

== ENCOUNTER 2023-04-21 15:29 | Outpatient (AMB) | payer OTHER, SELFPAY ==
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
[2023-04-21 15:40] VITALS: BP 130/72; PULSE 92; O2SAT 97; BMI 28.3
== END 2023-04-21 15:55 | disposition home or self-care (01) ==
PROVIDERS: PCP Internal Medicine; Visit Provider Nurse Practitioner Family
DX: G62.9 Polyneuropathy, unspecified (principal); R27.8 Other lack of coordination
CPT/HCPCS: 99213

== ENCOUNTER → 2023-04-21 15:29 | Outpatient (BNVA) | payer OTHER, SELFPAY | PROVIDERS: PCP Internal Medicine; Visit Provider Nurse Practitioner Family | DX: G62.9 Polyneuropathy, unspecified (principal); R27.8 Other lack of coordination | CPT/HCPCS: 99212 ==

== ENCOUNTER 2023-04-25 12:20 | Outpatient (AMB) | payer OTHER, SELFPAY ==
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
[2023-04-25 14:14] VITALS: BP 130/90; PULSE 81; TEMP 36.5; O2SAT 98
== END 2023-04-25 14:55 | disposition home or self-care (01) ==
PROVIDERS: PCP Internal Medicine; Visit Provider Internal Medicine
DX: J06.9 Acute upper respiratory infection, unspecified (principal)
CPT/HCPCS: 99213

== ENCOUNTER 2023-04-25 17:08 | Outpatient (REF) | payer OTHER, SELFPAY ==
[2023-04-25 17:54] LABS: Influenza A PCR POSITIVE (Negative); Influenza B PCR NEGATIVE (Negative); Resp Syncy Virus RNA Qual PCR NEGATIVE (Negative); SARS COV2 PCR INHOUSE NEGATIVE (Negative)
== END 2023-04-25 17:09 | disposition home or self-care (01) ==
LOC: HO.HMGCLNP 17:08
PROVIDERS: Visit Provider Internal Medicine
DX: R43.9 Unspecified disturbances of smell and taste (principal)
CPT/HCPCS: 0241U

== ENCOUNTER 2023-05-09 07:56 | Outpatient (AMB) | payer OTHER, SELFPAY ==
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
[2023-05-09 08:08] VITALS: BP 140/100; PULSE 82; O2SAT 96; BMI 29.3
== END 2023-05-09 08:25 | disposition home or self-care (01) ==
PROVIDERS: PCP Internal Medicine; Visit Provider Nurse Practitioner Family
DX: G62.9 Polyneuropathy, unspecified (principal); R27.8 Other lack of coordination
CPT/HCPCS: 99213

== ENCOUNTER → 2023-05-09 07:56 | Outpatient (BNVA) | payer OTHER, SELFPAY | PROVIDERS: PCP Internal Medicine; Visit Provider Nurse Practitioner Family | DX: G62.9 Polyneuropathy, unspecified (principal); R27.8 Other lack of coordination | CPT/HCPCS: 99212 ==

== ENCOUNTER 2023-05-09 09:13 | Emergency (ER) | payer OTHER, SELFPAY ==
--- NOTE | ~2023-05-09 | US_ITS ---
EXAMINATION: US VENOUS ULTRASOUND WITH DOPPLER LOWER EXTREMITY, LEFT CLINICAL INFORMATION: Left lower extremity redness. Superficial thrombophlebitis. COMPARISON: None available. TECHNIQUE: Ultrasound of the deep veins is performed from the hip to the calf with compression sonography and color and pulse Doppler assessment. Spectral analysis with color-flow imaging is performed. FINDINGS: The common femoral vein is compressible and exhibits a normal phasic waveform; this suggests that the iliac veins are widely patent above. Within the proximal thigh, the visualized profunda femoris vein is normal. The saphenofemoral junction is normal. There is noncompressible, partially occlusive thrombus of the greater saphenous vein (or a branch of this vein) within the proximal calf and extending up to the mid thigh. Superficial femoral vein is patent in the proximal, mid and distal thigh. Popliteal vein is normal to the level of the trifurcation. On compression miles scale and color Doppler images, the visualized posterior tibial and peroneal veins of the calf are patent. No evidence of Souza's cyst. US/US venous duplex LE IMPRESSION: * No evidence of deep vein thrombosis in the left lower extremity. * However, there is superficial vein thrombosis/thrombophlebitis affecting the greater saphenous vein (or a venous branch) extending from the proximal calf to the mid thigh.
[2023-05-09 09:44] VITALS: BP 137/92; PULSE 78; RESP 18; TEMP 36; O2SAT 94; BMI 28.5
--- NOTE | 2023-05-09 10:11 | ED_ITS ---
HPI - General Adult General Chief complaint: General Medical Stated complaint: L leg rash Time Seen by Provider: 05/09/23 10:03 Source: patient, RN notes reviewed and old records reviewed Mode of arrival: ambulatory History of Present Illness HPI narrative: 33-year-old male with past medical history of ETOH abuse, neuropathy, hemochromatosis, presenting to the ED complaining of bulging/pain left lower extremity vein with surrounding erythema worsening x2 weeks. Denies known injury/trauma or fall, numbness, tingling, weakness, recent travel, history of clots. Admits uses nicotine with vape. Related Data Home Medications Medication Instructions Recorded Confirmed buprenorphine 2 mg-naloxone 0.5 mg 1 film sublingual DAILY 12/31/21 03/15/23 sublingual film Previous Rx's Medication Instructions Recorded omeprazole 20 mg capsule,delayed 20 mg PO DAILY #90 caps 11/24/22 release B-complex with vitamin C 1 tab PO DAILY 90 days #90 tabs 12/17/22 prochlorperazine maleate 5 mg 5 mg PO BID PRN nausea and 04/25/23 tablet (Compazine) vomiting #14 tabs oseltamivir 75 mg capsule (Tamiflu) 75 mg PO BID 5 days #10 caps 04/26/23 Allergies Allergy/AdvReac Type Severity Reaction Status Date / Time No Known Allergies Allergy Verified 05/09/23 09:50 Review of Systems 2 Review of Systems: Constitutional: No Fever, No Chills ENT/Mouth: No Ear Pain, No Nasal Congestion, No sore throat, No Rhinorrhea, No Swallowing Difficulty Cardiovascular: No Chest Pain, No SOB Respiratory: No Cough, No Sputum, No Wheezing Gastrointestinal: No Nausea, No Vomiting, No Diarrhea, No Constipation, No Abdominal pain Genitourinary: No Dysuria, No Urinary Frequency, No Hematuria,No Flank Pain Musculoskeletal: No joint pain, No Myalgias, No Joint Swelling Skin: + Skin Lesions, No rash Neuro: No Weakness, No Numbness, No Paresthesias Yes all other systems are reviewed and are negative Constitutional: Constitutional: Reports as per [facility] Past Medical History Attestation statement: The following information was validated with the patient. Source: old records reviewed Medical History Neuropathy Sensory ataxia Clavicle fracture Alcohol abuse Foot pain, bilateral Abnormal complete blood count Abnormal liver enzymes No known health problems Surgical History Hx of skin graft Family History Family History Paternal Grandfather Cancer Paternal Grandmother Cancer Social History Social History Housing: Condominium Alcohol intake: current Alcohol intake frequency: holidays/special occasions only Alcohol type: beer Patient Tobacco Use Status: Former Tobacco user Cigarettes Per Day: 8 Years Smoked: 10 Smoked in Last 30 Days: No e-Cigarette/Vaping Use: Currently Using Use of substances other than those prescribed or required for medical reasons: No Substance Use Type: Marijuana Advance Directives: No Advance Directives Information Provided: No service: No 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 status: 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 Physical Exam ED Vital Signs: Vital Signs - 24 hr 05/09/23 09:44 05/09/23 10:14 Temperature 96.8 F 98.3 F Pulse Rate 78 84 Respiratory Rate 18 16 Blood Pressure 137/92 H 139/95 H Pulse Oximetry 94 96 Oxygen Delivery Method Room Air Room Air BMI result Body Mass Index 28.5 Const General: cooperative, healthy appearing and no acute distress Orientation/consciousness: patient oriented x3 Limitations: no limitations HENMT Head: Yes normal to inspection and Yes atraumatic Ears: hearing grossly normal bilaterally General nose exam: Normal external nose present Face and sinus: Yes normal facial exam Eyes General: appearance normal, both eyes and all related structures EOM: EOMs intact bilaterally Neck Neck: Yes normal visual inspection and Yes no meningeal signs Resp Effort & Inspection: normal respiratory effort and no respiratory distress Cardio Rate: regular rate Heart sounds: S1 normal heart sound present and S2 normal heart sound present Peripheral pulses: Peripheral pulses 2+ throughout Skin Rashes: no rashes Neuro General: patient oriented x3, tone normal and no meningeal signs Cranial nerves: Yes CN's II-XII intact bilaterally Gait exam (Neuro): Normal gait present Extrem Other: Please refer to image above. Palpable superficial thrombophlebitis with tenderness. Surrounding erythema is noted. Warm and tender to touch. No crepitus. Blanchable. No fluctuance/induration. Neurovascularly intact distally. No pitting edema Course Course Course Narrative: -chronic leukopenia and transaminitis likely from ETOH abuse. US venous duplex LE LT IMPRESSION: * No evidence of deep vein thrombosis in the left lower extremity. * However, there is superficial vein thrombosis/thrombophlebitis affecting the greater saphenous vein (or a venous branch) extending from the proximal calf to the mid thigh. > results discussed. Patient is supplied with Russ wrap for compression. Discussed warm compresses and NSAID use Results discussed with patient including worrisome signs and symptoms and strict return precautions, and when to return to the emergency department. They verbalized understanding and feel safe for discharge at this time. Medications Administered Discontinued Medications Generic Name Dose Route Start Last Admin Trade Name Freq PRN Reason Stop Dose Admin Acetaminophen 650 mg 05/09/23 10:42 05/09/23 10:51 Acetaminophen 325 Mg Tablet PO 05/09/23 10:43 650 mg ONCE ONE Administration Ketorolac Tromethamine 15 mg 05/09/23 11:47 05/09/23 12:37 Ketorolac Tromethamine 15 Mg/Ml Vial IVPUSH 05/09/23 11:48 15 mg ONCE ONE Administration Medical Decision Making Medical Decision Making [facility] Narrative: 33-year-old male with past medical history of ETOH abuse, neuropathy, hemochromatosis, presenting to the ED complaining of bulging/pain left lower extremity vein with surrounding erythema worsening x2 weeks. On exam vital signs stable, NAD, nontoxic appearing, physical exam as noted above. Please refer to image. Concern for superficial thrombophlebitis vs DVT with overlying cellulitis. Low suspicion for necrotizing fasciitis. Compartments soft. Low suspicion for PE or septic joint/arthritis Plan: Labs, venous duplex ultrasound Please refer to course for remaining clinical decision making, interpretation of labs/imaging results, and discussions with consultants and/or family members. Differential Diagnosis Differential Diagnoses: The differential diagnosis associated with the presentation includes As above Admission/Observation Consideration of admission/observation: Escalation of care including admission/observation considered Lab Data [facility] Lab Attestation statement: I reviewed the patient's lab results. 05/09/23 10:59 05/09/23 10:59 Labs: Lab Results 05/09/23 Range/Units 10:59 WBC 4.3 L (4.8-10.8) X10*3/uL RBC 4.90 (4.60-5.80) X10*6/uL Hgb 16.1 (14.0-18.0) g/dl Hct 46.2 (42.0-52.0) % MCV 94.3 (80.0-98.0) fL MCH 32.9 (27.0-33.0) pg MCHC 34.8 (31.0-36.0) g/dl RDW 11.5 (11.0-16.0) % Plt Count 134 L D (160-400) X10*3/uL MPV 10.8 (9.4-12.4) fL Immature Gran % (Auto) 0.2 (0.0-0.4) % Neut % (Auto) 60.0 (45-73) % Lymph % (Auto) 26.5 (20-40) % Harnett % (Auto) 10.8 (2-11) % Eos % (Auto) 1.8 (0-4) % Baso % (Auto) 0.7 (0-2) % Lymph # (Auto) 1.2 (1.2-4.9) X10*3/uL Harnett # (Auto) 0.5 (0.1-1.2) X10*3/uL Eos # (Auto) 0.1 (0.0-0.4) X10*3/uL Baso # (Auto) 0.0 (0.0-0.2) X10*3/uL Abs Immat Gran (auto) 0.01 (0.00-0.03) X10*3/uL Absolute Neuts (auto) 2.6 (2.0-8.3) x10*3/uL Absolute Nucleated RBC 0.000 (0.0-0.012) X10*3/uL Nucleated RBC % (auto) 0.0 (0.0-0.2) /100WBC ESR 1 (0-15) MM/HR PT 13.0 (11.1-13.3) SEC INR 1.1 (0.9-1.1) Sodium 141 (135-145) mmol/L Potassium 3.7 (3.3-5.1) mmol/L Chloride 106 (96-108) mmol/L Carbon Dioxide 26 (22-29) mmol/L Anion Gap 13 (12-20) BUN 3 L (9-16) mg/dL Creatinine 0.62 (0.5-1.4) mg/dL Estim Creat Clear Calc 214.7 Estimated GFR > 60 Random Glucose 133 H (60-115) mg/dL Calcium 8.5 D (8.4-10.2) mg/dL Total Bilirubin 1.4 H (0.0-1.0) mg/dL Direct Bilirubin 0.8 H (0.0-0.5) mg/dL AST 159 H (5-37) U/L ALT 103 H (0-40) U/L Alkaline Phosphatase 203 H (39-117) U/L C-Reactive Protein 0.65 H (< or = 0.50) mg/dL B-Natriuretic Peptide 15 (<100) pg/mL Total Protein 6.1 L (6.5-8.0) g/dL Albumin 3.5 (3.5-5.0) g/dL Independent Interpretation I performed an independent interpretation of an: Ultrasound Radiology Impression Discussion of test interpretation with radiology: I have reviewed the radiologist's reading. External Record Review External record reviewed: Inpatient record, Office record, Outpatient record, Prior outpatient labs, Prior outpatient radiology, Primary care record and Outside ED record Tests considered The following testing was considered but not selected: As above Prescription Management I considered prescription management with: Pain Medication and Antibiotic Discharge Plan Discharge Clinical Impression: Superficial thrombophlebitis, Cellulitis Patient Disposition: Home, Self-Care Instructions: Cellulitis (DC), Superficial Thrombophlebitis (ED) Additional Instructions: You have superficial thrombophlebitis. Use Russ wrap for compression. Apply warm compresses. Please take NSAIDs like Motrin/ibuprofen/Aleve If area spreads/worsens, has drainage, your fever return to the emergency department Rest Elevate Prescriptions: No Action oseltamivir [Tamiflu] 75 mg capsule 75 mg PO BID 5 Days Qty: 10 0RF prochlorperazine maleate [Compazine] 5 mg tablet 5 mg PO BID PRN (Reason: nausea and vomiting) Qty: 14 0RF omeprazole 20 mg capsule,delayed release(DR/EC) 20 mg PO DAILY Qty: 90 3RF buprenorphine-naloxone 2-0.5 mg film 1 film sublingual DAILY B-complex with vitamin C Tablet 1 tab PO DAILY 90 Days Qty: 90 1RF Referrals: Zander Coughlin MD [Primary Care Provider] - 3 days Stand Alone Forms: Work/School Release Interventions: ED Discharge Assessment Last Done: 05/09/23 12:41 Discharge Date/Time: 05/09/23 12:42
[2023-05-09 10:14] VITALS: BP 139/95; PULSE 84; RESP 16; TEMP 36.8; O2SAT 96
--- NOTE | 2023-05-09 10:17 | PC.NURSE ---
a&ox4. vss and up to date. pt presents to the ED d/t LLE vein bulging/rash x 2 weeks. pt states that the sx started after coughing when he had the flu. pt verbalizing 7/10 pain and difficulty ambulating. pt denies cp/sob. LLE tender to the touch. red rash noted from LLE that radiates up to the groin. warm to the touch. afebrile. no sob/wob noted. respirations even and unlabored. plan of care ongoing at this time.
[2023-05-09] MEDS: Acetaminophen 325 MG TABLET 650 MG PO (10:51)
--- NOTE | 2023-05-09 10:59 | PC.NURSE ---
20gIV placed in the left forearm - labs obtained/sent to lab. ultrasound bedside at this time.
[2023-05-09 11:23] LABS: MANUAL DIFF FLAG NO
[2023-05-09 11:28] LABS: Basophils Percent Auto 0.7 % (0-2); Eosinophils Absolute Auto 0.1 X10*3/uL (0.0-0.4); Eosinophils Percent Auto 1.8 % (0-4); Hematocrit 46.2 % (42.0-52.0); Hemoglobin 16.1 g/dl (14.0-18.0); Imm Gran Abs Auto 0.01 X10*3/uL (0.00-0.03); Imm Gran Pct Auto 0.2 % (0.0-0.4); Lymphocytes Absolute Auto 1.2 X10*3/uL (1.2-4.9); Lymphocytes Percent Auto 26.5 % (20-40); Mean Corpuscular HGB Conc 34.8 g/dl (31.0-36.0); Mean Corpuscular Hemoglobin 32.9 pg (27.0-33.0); Mean Corpuscular Volume 94.3 fL (80.0-98.0); Mean Platelet Volume 10.8 fL (9.4-12.4); Monocytes Absolute Auto 0.5 X10*3/uL (0.1-1.2); Monocytes Percent Auto 10.8 % (2-11); Neutrophils Absolute Auto 2.6 x10*3/uL (2.0-8.3); Platelet Count 134 X10*3/uL (160-400); Red Cell Distribution Width 11.5 % (11.0-16.0); White Blood Count 4.3 X10*3/uL (4.8-10.8)
[2023-05-09 11:30] LABS: INTERNATIONAL NORM RATIO 1.1 (0.9-1.1)
[2023-05-09 11:41] LABS: Alanine Aminotransferase 103 U/L (0-40); Albumin Level 3.5 g/dL (3.5-5.0); Alkaline Phosphatase 203 U/L (39-117); Anion Gap 13 (12-20); Aspartate Amino Transferase 159 U/L (5-37); Bilirubin Direct 0.8 mg/dL (0.0-0.5); Bilirubin Total 1.4 mg/dL (0.0-1.0); Blood Urea Nitrogen 3 mg/dL (9-16); C Reactive Protein 0.65 mg/dL (< or = 0.50); Calcium 8.5 mg/dL (8.4-10.2); Carbon Dioxide 26 mmol/L (22-29); Chloride 106 mmol/L (96-108); Creatinine Clr Calc Pharmacy 214.7; Estimated Glomerular Filt Rate > 60; Glucose Random 133 mg/dL (60-115); Potassium 3.7 mmol/L (3.3-5.1); Sodium 141 mmol/L (135-145); Total Protein 6.1 g/dL (6.5-8.0)
[2023-05-09 11:45] LABS: B Type Natriuretic Peptide 15 pg/mL (<100)
[2023-05-09 12:05] LABS: Erythrocyte Sedimentation Rate 1 MM/HR (0-15)
[2023-05-09] MEDS: Ketorolac Tromethamine 15 MG/ML VIAL IVPUSH (12:37)
--- NOTE | 2023-05-09 12:41 | PC.NURSE ---
medication administered per provider order.
== END 2023-05-09 12:42 | disposition home or self-care (01) ==
PROVIDERS: Physician Assistant; Emergency Provider Emergency Medicine; PCP Internal Medicine
DX: I80.3 Phlebitis and thrombophlebitis of lower extremities, unspecified (principal); L03.116 Cellulitis of left lower limb; R21 Rash and other nonspecific skin eruption; R60.0 Localized edema; F12.90 Cannabis use, unspecified, uncomplicated; Z79.899 Other long term (current) drug therapy
CPT/HCPCS: 36415; 80048; 80076; 83880; 85025; 85610; 85652; 86140; 93971; 96372; 99284; J1885

== ENCOUNTER 2023-05-18 08:54 | Outpatient (AMB) | payer OTHER, SELFPAY ==
[2023-05-18 08:55] VITALS: BP 120/88; PULSE 75; O2SAT 94
--- NOTE | 2023-05-18 08:55 | A.OFFPC_ITS ---
Vital Signs 3 05/18/23 08:55 Height 6 ft 2 in Weight 233 lb 6 oz BMI 30.0 BP 120/88 Blood Pressure Location Lt brachial Position Sitting Pulse 75 Pulse Source Pulse Oximeter Pulse Oximetry (%) 94 Oxygen Delivery Method Room Air Intake Visit Reasons: Protruding vein ~ Allergies No Known Allergies Allergy (Verified 05/18/23 08:55) Medication List - Last Reconciled 05/18/23 by Zander Coughlin MD B-complex with vitamin C 1 tab PO DAILY 90 days buprenorphine-naloxone 2-0.5 mg 1 film sublingual DAILY omeprazole 20 mg PO DAILY Tobacco use date assessed: 05/18/23 Dental Screening Dental Screen Date: 05/18/23 Did you have a dental visit in the last 12 months?: No Did you have a dental problem in the last 6 months where you did not have access to dental care?: No Was dental information given to patient?: Patient has dentist HPI Protruding vein ~ 2 HPI0 Details Patient is 33-year-old male with a past history of alcohol abuse, neuropathy, hemochromatosis, presented to emergency room on 05/09/2023 with a chief complaint of pain left lower extremity with bulging wane and some redness for the past 2 weeks. Patient had no history of injury or trauma or fall On examination patient found to have erythema left upper leg and was diagnosed with palpable superficial thrombophlebitis with tenderness Ultrasound of leg showed no DVT however he does have superficial vein thrombosis/thrombophlebitis affecting greater saphenous vein extending from proximal calf to mid thigh Patient was instructed to apply Russ wrap and compression, and use NSAIDs On examination today, he still have erythema around a hard saphenous vein I am starting him on subcutaneous fondaparinux 2.5 mg daily for 30 days Patient will order picker the medication and bring it over so we can teach him how to inject He needs to come back for follow-up in 3 weeks [facility] Medical History Neuropathy Sensory ataxia Clavicle fracture Alcohol abuse Foot pain, bilateral Abnormal complete blood count Abnormal liver enzymes No known health problems Surgical History Hx of skin graft Family History Paternal Grandfather Cancer Paternal Grandmother Cancer Social History Housing: Condominium Alcohol intake: current Alcohol intake frequency: holidays/special occasions only Alcohol type: beer Patient Tobacco Use Status: Former Tobacco user Cigarettes Per Day: 8 Years Smoked: 10 Packs per year/per ci.00 e-Cigarette/Vaping Use: Currently Using Substance Use Type: Marijuana service: No 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 status: 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 1. Little interest or pleasure in doing things: not at all 2. Feeling down, depressed, or hopeless: several days 3. Trouble falling or staying asleep, or sleeping too much: several days 4. Feeling tired or having little energy: several days 5. Poor appetite or overeating: not at all 6. Feeling bad about yourself - or that you are a failure or have let yourself or your family down: several days 7. Trouble concentrating on things, such as reading the newspaper or watching television: not at all 8. Moving or speaking so slowly that other people could have noticed. Or the opposite - being so fidgety or restless that you have been moving around a lot more than usual: not at all 9. Thoughts that you would be better off or of hurting yourself in some way: several days Total score: 5 Depression Screening Interpretation: Negative Depression Screening Done: Yes 41932 - PHQ-9 Billing: Yes Source: Developed by Drs. Michele Braswell, Andree Rodriguez, Niles Meléndez and colleagues, with an educational kel from [employer]. Thrive Questionnaire Date Thrive assessed: 05/18/23 I am a: Patient What is your living situation today?: I have a steady place to live Within the past 12 months, did the food you bought not last and you didn't have the money to get more?: Never true Within the past 12 months, did you worry whether your food would run out before you got money to buy more?: Never true Do you have trouble paying for medicines?: No Do you have trouble getting transportation to medical appointments?: No Do you have trouble paying your heating and electricity bill?: No Do you have trouble taking care of your child, family member or friend?: No Do you have trouble with day-to-day activities such as bathing, preparing meals, shopping, managing finances, etc.?: No Are you currently unemployed and looking for a job?: No Are you interested in more education?: No Please select the resources that you would like help with: None Currently or been in a relationship where the following occur: no concerns reported THRIVE Score: 0 AUDIT C Alcohol Use Questionnaire (AUDIT-C) 1. How often do you have a drink containing alcohol?: 2-4 times a month 2. How many drinks containing alcohol do you have on a typical day when you are drinking?: 3 or 4 3. How often do you have six or more drinks on one occasion?: Never Total Score: 3 Score Reviewed/Action Taken: Yes CONNOR-7 AMB Questionnaire CONNOR-7 Date CONNOR - 7 assessed: 05/18/23 Feeling nervous, anxious, or on edge: 0 = Not at all Not being able to stop or control worryin = Not at all Worrying too much about different things: 0 = Not at all Trouble relaxin = Not at all Being so restless that it is hard to sit still: 0 = Not at all Becoming easily annoyed or irritable: 0 = Not at all Feeling afraid as if something awful might happen: 0 = Not at all Total CONNOR-7 score (0-4 normal; 5-9 mild; 10-14 moderate; 15-21 severe): 0 Source: Developed by Drs. Michele Braswell, Andree Rodriguez, Niles Meléndez and colleagues, with an educational kel from [employer]. CONNOR-7 Assessment Billing CONNOR-7 Assessment Tool: CONNOR-7 Assessment 78839 Review of Systems Const Denies chills and Denies fever(s) ENT Denies epistaxis and Denies nasal discharge Card Denies chest pain Resp Denies chest congestion, Denies cough and Denies hemoptysis GI Denies diarrhea and Denies nausea Skin/Breast Denies rash Neuro Reports no additional complaints Psych Reports no additional complaints Endo Reports no additional complaints Physical exam (Primary Care) Vital Signs: Last Vital Signs Pulse 75 05/18/23 08:55 BP 120/88 05/18/23 08:55 Pulse Ox 94 05/18/23 08:55 Oxygen Delivery Method Room Air 05/18/23 08:55 BMI result Body Mass Index 30.0 Tobacco/Smoking Status: Tobacco use Status Tobacco use date assessed 05/18/23 05/18/23 09:00 Patient Tobacco Use Status Former Tobacco user 05/18/23 09:00 Tobacco use type 11/24/22 12:36 e-Cigarette/Vaping Use Currently Using 05/18/23 09:00 PHQ-9: PHQ-9 Score PHQ-9: Total score 5 05/18/23 09:08 Depression Screening Interpretation: Negative Thrive Assessment: Date of Thrive Assessment Date Thrive assessed 05/18/23 05/18/23 09:00 Currently or been in a relationship where the following occur: no concerns reported Const General: cooperative, comfortable and no acute distress Orientation/consciousness: patient oriented x3 HENMT Head: Yes normocephalic Eyes General: appearance normal, both eyes and all related structures Neck Neck: Yes supple Resp Effort & Inspection: normal respiratory effort, no cough and no stridor Cardio Rhythm: regular rhythm Heart sounds: S1 normal heart sound present and S2 normal heart sound present Skin General skin exam: turgor normal Full body images: 2 1. Hard saphenous vein with erythema, look the same as in emergency room photo Neuro General: patient oriented x3, tone normal and moves all extremities Extrem Right lower extremity: no edema Left lower extremity: no edema Assessment and Plan Assessment & Plan (1) Thrombosis of left saphenous vein: Code(s): I82.812 - Embolism and thrombosis of superficial veins of left lower extremity Plan Patient is 33-year-old male with a past history of alcohol abuse, neuropathy, hemochromatosis, presented to emergency room on 05/09/2023 with a chief complaint of pain left lower extremity with bulging wane and some redness for the past 2 weeks. Patient had no history of injury or trauma or fall On examination patient found to have erythema left upper leg and was diagnosed with palpable superficial thrombophlebitis with tenderness Ultrasound of leg showed no DVT however he does have superficial vein thrombosis/thrombophlebitis affecting greater saphenous vein extending from proximal calf to mid thigh Patient was instructed to apply Russ wrap and compression, and use NSAIDs On examination today, he still have erythema around a hard saphenous vein I am starting him on subcutaneous fondaparinux 2.5 mg daily for 30 days Patient will order picker the medication and bring it over so we can teach him how to inject He needs to come back for follow-up in 3 weeks Medications: New 2 fondaparinux 2.5 mg (0.5 mL) subcut Q24H 15 mL 0RF Superficial phlebitis 30 days Coding Level of Care Code Est Pt Level 4 (88664) Diagnoses Thrombosis of left saphenous vein I82.812 Additional Codes CONNOR-7 Assessment Billing - CONNOR-7 Assessment Tool: CONNOR-7 Assessment 35312 ([id number])
== END 2023-05-18 12:26 | disposition home or self-care (01) ==
PROVIDERS: PCP Internal Medicine; Visit Provider Internal Medicine
DX: I82.812 Embolism and thrombosis of superficial veins of left lower extremity (principal)
CPT/HCPCS: 99214

== ENCOUNTER 2023-06-08 15:31 | Outpatient (AMB) | payer OTHER, SELFPAY ==
[2023-06-08 15:35] VITALS: BP 142/98; PULSE 99; O2SAT 96; BMI 28.4
--- NOTE | 2023-06-08 15:35 | MHC.PC.OV ---
Vital Signs 06/08/23 15:35 Height 6 ft 2 in Weight 221 lb 6 oz BMI 28.4 BP 142/98 H Blood Pressure Location Rt brachial Position Sitting Pulse 99 Pulse Source Pulse Oximeter Pulse Oximetry (%) 96 Oxygen Delivery Method Room Air Intake Visit Reasons: 9 month follow up Allergies No Known Allergies Allergy (Verified 06/08/23 15:35) Medication List - Last Reconciled 06/08/23 by Zander Coughlin MD B-complex with vitamin C 1 tab PO DAILY 90 days buprenorphine-naloxone 2-0.5 mg 1 film sublingual DAILY fondaparinux 2.5 mg (0.5 mL) subcut Q24H 30 days omeprazole 20 mg PO DAILY Tobacco use date assessed: 06/08/23 Dental Screening Dental Screen Date: 06/08/23 Did you have a dental visit in the last 12 months?: No Did you have a dental problem in the last 6 months where you did not have access to dental care?: No Was dental information given to patient?: Patient has dentist HPI 9 month follow up HPI Details Patient is on Lovenox injections for left saphenous vein clotting extending into his thigh He still have 2 more weeks of script Patient says that he is feeling soreness in his groin area now His liver enzymes are getting worse as well, patient continued to drink He will need to see gastroenterology I have sent E consult request to Hematology, regarding how long to continue Lovenox for this patient Repeat ultrasound is ordered Blood pressure is elevated today as patient ran out of his atenolol script which I have sent for him I have told him to reach out to me when he has 3 injections left so we can guide him further [facility] Medical History Neuropathy Sensory ataxia Clavicle fracture Alcohol abuse Foot pain, bilateral Abnormal complete blood count Abnormal liver enzymes No known health problems Surgical History Hx of skin graft Family History Paternal Grandfather Cancer Paternal Grandmother Cancer Social History Housing: Condominium Alcohol intake: current Alcohol intake frequency: holidays/special occasions only Alcohol type: beer Patient Tobacco Use Status: Former Tobacco user Cigarettes Per Day: 8 Years Smoked: 10 Packs per year/per ci.00 e-Cigarette/Vaping Use: Currently Using Substance Use Type: Marijuana service: No 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 status: 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 Questionnaire Thrive Questionnaire Date Thrive assessed: 05/18/23 AUDIT C Alcohol Use Questionnaire (AUDIT-C) 1. How often do you have a drink containing alcohol?: 2-4 times a month 2. How many drinks containing alcohol do you have on a typical day when you are drinking?: 3 or 4 3. How often do you have six or more drinks on one occasion?: Never Total Score: 3 Score Reviewed/Action Taken: Yes CONNOR-7 AMB Questionnaire CONNOR-7 Date CONNOR - 7 assessed: 05/18/23 Source: Developed by Drs. Michele Braswell, Andree Rodriguez, Niles Meléndez and colleagues, with an educational kel from [employer]. Review of Systems Const Denies chills and Denies fever(s) ENT Denies epistaxis and Denies nasal discharge Card Denies chest pain Resp Denies chest congestion, Denies cough and Denies hemoptysis GI Denies diarrhea and Denies nausea Skin/Breast Denies rash Neuro Reports no additional complaints Psych Reports no additional complaints Endo Reports no additional complaints Physical exam (Primary Care) Vital Signs: Last Vital Signs Pulse 99 06/08/23 15:35 BP 142/98 H 06/08/23 15:35 Pulse Ox 96 06/08/23 15:35 Oxygen Delivery Method Room Air 06/08/23 15:35 BMI result Body Mass Index 28.4 Tobacco/Smoking Status: Tobacco use Status Tobacco use date assessed 06/08/23 06/08/23 15:40 Patient Tobacco Use Status Former Tobacco user 06/08/23 15:40 Tobacco use type 05/19/23 12:56 e-Cigarette/Vaping Use Currently Using 06/08/23 15:40 Thrive Assessment: Date of Thrive Assessment Date Thrive assessed 05/18/23 06/08/23 15:40 Const General: cooperative, comfortable and no acute distress Orientation/consciousness: patient oriented x3 HENMT Head: Yes normocephalic Eyes General: appearance normal, both eyes and all related structures Neck Neck: Yes supple Resp Effort & Inspection: normal respiratory effort, no cough and no stridor Cardio Rhythm: regular rhythm Heart sounds: S1 normal heart sound present and S2 normal heart sound present Skin General skin exam: turgor normal Neuro General: patient oriented x3, tone normal and moves all extremities Extrem Elbow/forearm/wrist images: 1. Firmness and slight discoloration over saphenous vein Right lower extremity: no edema Left lower extremity: no edema Assessment and Plan Assessment & Plan (1) Thrombosis of left saphenous vein: Code(s): I82.812 - Embolism and thrombosis of superficial veins of left lower extremity (2) LFT elevation: Code(s): R79.89 - Other specified abnormal findings of blood chemistry (3) Alcoholism: Code(s): F10.20 - Alcohol dependence, uncomplicated (4) Hypertension, essential: Code(s): I10 - Essential (primary) hypertension Plan Patient is on Lovenox injections for left saphenous vein clotting extending into his thigh He still have 2 more weeks of script Patient says that he is feeling soreness in his groin area now His liver enzymes are getting worse as well, patient continued to drink He will need to see gastroenterology I have sent E consult request to Hematology, regarding how long to continue Lovenox for this patient Repeat ultrasound is ordered Blood pressure is elevated today as patient ran out of his atenolol script which I have sent for him I have told him to reach out to me when he has 3 injections left so we can guide him further Orders: Orders US venous duplex LE LT Today I82.812 - Embolism and thrombosis of superficial veins of left lower extremity Referrals Gastroenterology Referral F10.20 - Alcohol dependence, uncomplicated, R79.89 - Other specified abnormal findings of blood chemistry Medications: Refilled atenolol 25 mg PO DAILY 90 days 90 tabs 0RF Coding Level of Care Code Est Pt Level 4 (31292) Diagnoses Thrombosis of left saphenous vein I82.812 LFT elevation R79.89 Alcoholism F10.20 Hypertension, essential I10
== END 2023-06-08 16:02 | disposition home or self-care (01) ==
PROVIDERS: PCP Internal Medicine; Visit Provider Internal Medicine
DX: I82.812 Embolism and thrombosis of superficial veins of left lower extremity (principal); R79.89 Other specified abnormal findings of blood chemistry; F10.20 Alcohol dependence, uncomplicated; I10 Essential (primary) hypertension
CPT/HCPCS: 99214

== ENCOUNTER 2023-06-14 08:06 | Emergency (ER) | payer OTHER, SELFPAY ==
--- NOTE | ~2023-06-14 | US_ITS ---
EXAMINATION: ULTRASOUND OF THE PORTAL VEIN CLINICAL INFORMATION: Rule out portal vein thrombosis COMPARISON: None available. TECHNIQUE: Limited ultrasound of the portal vein was performed with color flow Doppler imaging FINDINGS: The main portal vein is patent with hepatopedal flow intrahepatic portal veins were not evaluated. The left and right portal veins were not evaluated. US/US duplex arterial venous comp IMPRESSION: The main portal vein is patent with hepatopedal flow.
--- NOTE | ~2023-06-14 | CT_ITS ---
STUDY PERFORMED: CTA ABDOMEN, PELVIS AND LOWER EXTREMITY RUNOFF WITH CONTRAST HISTORY: History of recent clot with left lower extremity pain DESCRIPTION: Routine abdominal aorta and lower extremity runoff CTA protocol with contrast was performed. 100 mL of Omnipaque 350 was administered. 3D POSTPROCESSING: Multiple 3-D angiographic images were processed from the initial data set by the [facility] under concurrent physician supervision. This CT examination was performed using dose optimization techniques as appropriate, variously including the following: *Automated exposure control *Adjustment of mA and/or kV according to patient size (this includes techniques or standardized protocols for targeted exams where dose is matched to indication/reason for exam; i.e. extremities or head) *Use of iterative reconstruction technique DLP: 902 mGycm. COMPARISON: None FINDINGS: VASCULAR: ABDOMINAL AORTA: Normal. Should be noted that evaluation of distal runoff below the knees is suboptimal secondary to timing venous contamination. However, as described below, no definite abnormality is seen. RIGHT LOWER EXTREMITY: - Common Iliac Artery: Normal. - Internal Iliac Artery: Normal. - External Iliac Artery: Normal. - Common Femoral Artery: Normal. - Profunda Femoral Artery: Normal. - Superficial Femoral Artery: Normal. - Popliteal Artery: Normal. - Tibioperoneal Trunk: Unremarkable - Posterior Tibial Artery: Unremarkable. - Peroneal Artery: Unremarkable. - Anterior Tibial Artery: Unremarkable. LEFT LOWER EXTREMITY: - Common Iliac Artery: Normal. - Internal Iliac Artery: Normal. - External Iliac Artery: Normal. - Common Femoral Artery: Normal. - Profunda Femoral Artery: Normal. - Superficial Femoral Artery: Normal. - Popliteal Artery: Normal. - Tibioperoneal Trunk: Unremarkable - Posterior Tibial Artery: Unremarkable. - Peroneal Artery: Unremarkable. - Anterior Tibial Artery: Unremarkable. CELIOMESENTERIC ARTERIES: The celiac, SMA and GEORGIE are all widely patent.. RENAL ARTERIES: 2 renal arteries on the right with a single renal artery and the left which are widely patent. NONVASCULAR: Lung Bases: The visualized lung bases are unremarkable. There is bibasilar atelectasis. Liver, Gallbladder and Biliary Tree: The liver is enlarged measuring 22 cm in cephalocaudad dimension with decreased attenuation consistent with hepatic steatosis. No focal hepatic lesion or biliary ductal dilatation is present. The gallbladder is unremarkable with no evidence of radiopaque gallstones, gallbladder wall thickening, or obvious pericholecystic inflammatory changes. Pancreas: Unremarkable. Spleen: Spleen is enlarged at 14.4 cm. Adrenal Glands: Unremarkable. Kidneys and Ureters: The kidneys are normal in size, shape, and attenuation. No hydronephrosis, hydroureter, or calculi seen. No perinephric stranding. Bladder: Unremarkable. Gastrointestinal Tract: The small and large bowel are unremarkable. The appendix is unremarkable. Abdominal Wall: No significant hernia is appreciated. Lymph Nodes: Normal. Pelvic Viscera: The prostate and seminal vesicles are unremarkable. Osseous Structures: Unremarkable. CT/CT angio abd aorta runoff IMPRESSION: 1. No evidence of aortoiliac inflow disease. 2. No evidence of femoropopliteal outflow disease. 3. There is three-vessel runoff bilaterally. 4. Incidental note made of an enlarged fatty liver and mild splenomegaly.
[2023-06-14 08:31] VITALS: BP 140/86; PULSE 76; RESP 20; TEMP 36.8; O2SAT 99; BMI 29.7
--- NOTE | 2023-06-14 08:53 | MHC.EDTECH ---
Attempted labs @1114, pt states hes in too much pain to sit still . Will reapproach in a little bit.
[2023-06-14 12:57] LABS: Hemoglobin 17.8 g/dl (14.0-18.0); INTERNATIONAL NORM RATIO 1.1 (0.9-1.1); Imm Gran Abs Auto 0.02 X10*3/uL (0.00-0.03); Imm Gran Pct Auto 0.4 % (0.0-0.4); MANUAL DIFF FLAG SCAN; PLT CLUMP 1; Prothrombin Time 13.4 SEC (11.1-13.3); SCAN SMEAR FLAG 1
[2023-06-14 12:59] LABS: Basophils Percent Auto 0.8 % (0-2); Eosinophils Absolute Auto 0.1 X10*3/uL (0.0-0.4); Hematocrit 49.6 % (42.0-52.0); Lymphocytes Absolute Auto 1.1 X10*3/uL (1.2-4.9); Lymphocytes Percent Auto 20.3 % (20-40); Mean Corpuscular HGB Conc 35.9 g/dl (31.0-36.0); Mean Corpuscular Hemoglobin 33.1 pg (27.0-33.0); Mean Corpuscular Volume 92.4 fL (80.0-98.0); Monocytes Absolute Auto 0.5 X10*3/uL (0.1-1.2); Monocytes Percent Auto 10.5 % (2-11); Neutrophils Absolute Auto 3.5 x10*3/uL (2.0-8.3); Red Blood Count 5.37 X10*6/uL (4.60-5.80); Red Cell Distribution Width 11.6 % (11.0-16.0)
[2023-06-14 13:00] LABS: White Blood Count 5.2 X10*3/uL (4.8-10.8)
[2023-06-14 13:21] LABS: Platelet Count 40 X10*3/uL (160-400); SLIDE REVIEW VERIFIED
[2023-06-14 14:09] VITALS: BP 138/96; PULSE 65; RESP 20; TEMP 35.8; O2SAT 98
--- NOTE | 2023-06-14 14:09 | ED_ITS ---
HPI - Abdominal Pain General Chief Complaint: Abdominal Pain Stated Complaint: Stomach Pain Vomiting Etc Time Seen by Provider: 06/14/23 16:33 History of Present Illness HPI narrative: 33 y/o M patient; PMH thrombosis of left saphenous vein, HTN, alcohol use disorder; presents from home reporting LLQ abdominal pain for the last three days associated with nausea/vomiting and decreased PO intake. He states he has continued to drink daily to prevent himself from developing DTs. He otherwise denies: fever or chills, chest pain, SOB, cough/congestion. He was diagnosed with the DVT 3 weeks ago and has been compliant with his anti-coagulation medication expect for the last two days. Related Data Home Medications Medication Instructions Recorded Confirmed buprenorphine 2 mg-naloxone 0.5 mg 1 film sublingual DAILY 12/31/21 06/08/23 sublingual film Previous Rx's Medication Instructions Recorded omeprazole 20 mg capsule,delayed 20 mg PO DAILY #90 caps 11/24/22 release B-complex with vitamin C 1 tab PO DAILY 90 days #90 tabs 12/17/22 fondaparinux 2.5 mg/0.5 mL 2.5 mg (0.5 mL) subcut Q24H 05/18/23 subcutaneous solution syringe Superficial phlebitis 30 days #15 mL atenolol 25 mg tablet 25 mg PO DAILY 90 days #90 tabs 06/08/23 lorazepam 1 mg tablet (Ativan) 1 mg PO TID PRN alcohol withdrawal 06/14/23 #7 tabs ondansetron 4 mg disintegrating 4 mg PO TID PRN nausea and 06/14/23 tablet vomiting 5 days #10 tabs Allergies Allergy/AdvReac Type Severity Reaction Status Date / Time No Known Allergies Allergy Verified 06/14/23 08:36 Review of Systems Review of Systems Yes all other systems are reviewed and are negative [facility] Past Medical History Attestation statement: The following information was validated with the patient. Source: old records reviewed Medical History Neuropathy Sensory ataxia Clavicle fracture Alcohol abuse Foot pain, bilateral Abnormal complete blood count Abnormal liver enzymes No known health problems Surgical History Hx of skin graft Family History Family History Paternal Grandfather Cancer Paternal Grandmother Cancer Social History Social History Housing: Condominium Alcohol intake: current Alcohol intake frequency: holidays/special occasions only Alcohol type: beer Patient Tobacco Use Status: Former Tobacco user Cigarettes Per Day: 8 Years Smoked: 10 Smoked in Last 30 Days: No e-Cigarette/Vaping Use: Currently Using Use of substances other than those prescribed or required for medical reasons: Yes Substance Use Type: Marijuana Advance Directives: No Advance Directives Information Provided: No service: No 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 status: 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 Physical Exam ED Vital Signs: Vital Signs - 24 hr 06/14/23 08:31 06/14/23 14:09 06/14/23 16:32 Temperature 98.2 F 96.5 F L 98.4 F Pulse Rate 76 65 88 Respiratory Rate 20 20 16 Blood Pressure 140/86 H 138/96 H 149/99 H Pulse Oximetry 99 98 98 Oxygen Delivery Method Room Air Room Air Room Air 06/14/23 18:00 06/14/23 21:38 Temperature 98.5 F 98.0 F Pulse Rate 64 88 Respiratory Rate 19 22 H Blood Pressure 138/93 H 142/101 H Pulse Oximetry 94 100 Oxygen Delivery Method Room Air Room Air BMI result Body Mass Index 29.7 Patient is afebrile, mildly hypertensive. Const General: cooperative HENMT Head: Yes atraumatic Eyes General: appearance normal, both eyes and all related structures Neck Neck: Yes normal visual inspection, Yes full ROM, Yes supple and No tender Chest Chest palpation & inspection: normal inspection of the chest and normal palpation of entire chest wall Resp Effort & Inspection: normal respiratory effort, able to speak in complete sentences, no cough and no respiratory distress Auscultation: clear to auscultation bilaterally Cardio Rate: regular rate Rhythm: regular rhythm Peripheral pulses: Peripheral pulses 2+ throughout GI Inspection: Yes normal to inspection, No Abdominal wall edema and No distended Palpation (GI): Firmness to palpation present (GI), Tenderness to palpation present (GI), no guarding and not rigid Auscultation: normal bowel sounds Course Course Course Narrative: This is an RME: Additional HPI, ROS, PE not included below will be deferred to primary provider. This is a 63-kucm-mnc-male, with a hx of neuropathy in LE, and DVT on lovenox, presenting to the ER with complaints of nausea, vomiting, sweats, left lower quadrant pain x 2 days. Patient states that he is a drinker, typically drink 6 nips of vodka daily. Last drink was yesterday. No history of known alcohol withdrawal. He also endorses some shortness of breath, which started several weeks ago. Tenderness palpation along the left lower quadrant. Plan: Labs, further ER evaluation needed. Reevaluation(s) Reevaluation #1: Patient is afebrile and mildly hypertensive. Ordered additional labs, US Abdomen w doppler, CTA Abdomen/Pelvis with runoff to LLE. Labs notable for: Elevated total bilirubin and direct bilirubin. Significant thrombocytopenia. No leukocytosis. Baseline transaminitis and alk phos elevation. Ammonia 53. US Abdomen negative for portal vein thrombosis. Patient with elevated CIWA score. Provided Ativan 1mg IV. Pending CTA Abdomen/Pelvis with runoff to LLE. Extensively discussed alcohol cessation. Plan: Transition care to next provider Condition: Stable Medical Decision Making Medical Decision Making MDM Narrative: Took over patient's case pending CT scan of the abdomen pelvis. CT did not show any acute evidence of obstruction abscess perforation. Consistent with fatty liver. No aortic injury. Patient's LFTs are elevated consistent with having alcohol abuse history. Explained to patient the need to stop drinking. Patient states understanding. Did not want detox at this time. Spoke with care team nevertheless. Care team into see patient to offered additional support. A short term benzo script was given for patient's alcohol withdrawal. Zofran was offered for nausea. Patient explained the need to repeat his liver enzymes in 1 week. Explained the need to go to detox. Patient's flu COVID RSV are all negative. In stable condition. Lab Data 06/14/23 12:36 06/14/23 16:32 Labs: Lab Results 06/14/23 06/14/23 06/14/23 Range/Units 12:36 16:32 17:38 WBC 5.2 (4.8-10.8) X10*3/uL RBC 5.37 (4.60-5.80) X10*6/uL Hgb 17.8 (14.0-18.0) g/dl Hct 49.6 (42.0-52.0) % MCV 92.4 (80.0-98.0) fL MCH 33.1 H (27.0-33.0) pg MCHC 35.9 (31.0-36.0) g/dl RDW 11.6 (11.0-16.0) % Plt Count 40 L D (160-400) X10*3/uL MPV Not Reportable Immature Gran % (Auto) 0.4 (0.0-0.4) % Neut % (Auto) 67.0 (45-73) % Lymph % (Auto) 20.3 (20-40) % Coffee % (Auto) 10.5 (2-11) % Eos % (Auto) 1.0 (0-4) % Baso % (Auto) 0.8 (0-2) % Lymph # (Auto) 1.1 L (1.2-4.9) X10*3/uL Coffee # (Auto) 0.5 (0.1-1.2) X10*3/uL Eos # (Auto) 0.1 (0.0-0.4) X10*3/uL Baso # (Auto) 0.0 (0.0-0.2) X10*3/uL Abs Immat Gran (auto) 0.02 (0.00-0.03) X10*3/uL Absolute Neuts (auto) 3.5 (2.0-8.3) x10*3/uL Absolute Nucleated RBC 0.000 (0.0-0.012) X10*3/uL Nucleated RBC % (auto) 0.0 (0.0-0.2) /100WBC Smear Tech's Comments VERIFIED PT 13.4 H 14.5 H (11.1-13.3) SEC INR 1.1 1.2 H (0.9-1.1) Sodium 140 (135-145) mmol/L Potassium 3.8 (3.3-5.1) mmol/L Chloride 99 (96-108) mmol/L Carbon Dioxide 32 H (22-29) mmol/L Anion Gap 13 (12-20) BUN 6 L (9-16) mg/dL Creatinine 0.71 (0.5-1.4) mg/dL Estim Creat Clear Calc 185.7 Estimated GFR > 60 Random Glucose 120 H (60-115) mg/dL Calcium 9.1 D (8.4-10.2) mg/dL Total Bilirubin 5.1 H (0.0-1.0) mg/dL Direct Bilirubin 2.9 H (0.0-0.5) mg/dL AST 289 H (5-37) U/L ALT 140 H (0-40) U/L Alkaline Phosphatase 228 H (39-117) U/L Ammonia 53 (13-55) umol/L Total Protein 7.0 (6.5-8.0) g/dL Albumin 3.9 (3.5-5.0) g/dL Lipase 56 (8-78) U/L Ethyl Alcohol < 10 mg/dL Influenza Type A (PCR) (Negative) Influenza Type B (PCR) (Negative) RSV RNA Qual (PCR) (Negative) SARS-CoV-2 RNA (RT-PCR) (Negative) 06/14/23 Range/Units 20:04 WBC (4.8-10.8) X10*3/uL RBC (4.60-5.80) X10*6/uL Hgb (14.0-18.0) g/dl Hct (42.0-52.0) % MCV (80.0-98.0) fL MCH (27.0-33.0) pg MCHC (31.0-36.0) g/dl RDW (11.0-16.0) % Plt Count (160-400) X10*3/uL MPV Immature Gran % (Auto) (0.0-0.4) % Neut % (Auto) (45-73) % Lymph % (Auto) (20-40) % Coffee % (Auto) (2-11) % Eos % (Auto) (0-4) % Baso % (Auto) (0-2) % Lymph # (Auto) (1.2-4.9) X10*3/uL Coffee # (Auto) (0.1-1.2) X10*3/uL Eos # (Auto) (0.0-0.4) X10*3/uL Baso # (Auto) (0.0-0.2) X10*3/uL Abs Immat Gran (auto) (0.00-0.03) X10*3/uL Absolute Neuts (auto) (2.0-8.3) x10*3/uL Absolute Nucleated RBC (0.0-0.012) X10*3/uL Nucleated RBC % (auto) (0.0-0.2) /100WBC Smear Tech's Comments PT (11.1-13.3) SEC INR (0.9-1.1) Sodium (135-145) mmol/L Potassium (3.3-5.1) mmol/L Chloride (96-108) mmol/L Carbon Dioxide (22-29) mmol/L Anion Gap (12-20) BUN (9-16) mg/dL Creatinine (0.5-1.4) mg/dL Estim Creat Clear Calc Estimated GFR Random Glucose (60-115) mg/dL Calcium (8.4-10.2) mg/dL Total Bilirubin (0.0-1.0) mg/dL Direct Bilirubin (0.0-0.5) mg/dL AST (5-37) U/L ALT (0-40) U/L Alkaline Phosphatase (39-117) U/L Ammonia (13-55) umol/L Total Protein (6.5-8.0) g/dL Albumin (3.5-5.0) g/dL Lipase (8-78) U/L Ethyl Alcohol mg/dL Influenza Type A (PCR) NEGATIVE (Negative) Influenza Type B (PCR) NEGATIVE (Negative) RSV RNA Qual (PCR) NEGATIVE (Negative) SARS-CoV-2 RNA (RT-PCR) NEGATIVE (Negative) Radiology Impression Discussion of test interpretation with radiology: I have reviewed the radiologist's reading. Radiologist Impression: EXAMINATION: ULTRASOUND OF THE PORTAL VEIN CLINICAL INFORMATION: Rule out portal vein thrombosis COMPARISON: None available. TECHNIQUE: Limited ultrasound of the portal vein was performed with color flow Doppler imaging FINDINGS: The main portal vein is patent with hepatopedal flow intrahepatic portal veins were not evaluated. The left and right portal veins were not evaluated. US/US duplex arterial venous comp IMPRESSION: The main portal vein is patent with hepatopedal flow. Medications Administered Discontinued Medications Generic Name Dose Route Start Last Admin Trade Name Freq PRN Reason Stop Dose Admin Diazepam 5 mg 06/14/23 22:07 06/14/23 22:17 Diazepam 10 Mg/2 Ml Cartridge IVPUSH 06/14/23 22:08 5 mg STAT STA Administration Hydromorphone HCl 0.5 mg 06/14/23 17:42 06/14/23 18:03 Hydromorphone Hcl 0.5 Mg/0.5 Ml Syringe IVPUSH 06/14/23 17:43 0.5 mg ONCE ONE Administration Protocol Sodium Chloride 1,000 mls @ 999 mls/hr 06/14/23 17:00 06/14/23 22:06 Ns IV 06/14/23 18:00 Infused .Q1H1M BERT Infusion Iohexol 100 ml 06/14/23 21:23 06/14/23 21:23 Iohexol 350 Mg/Ml 100 Ml Infus..Btl IV 06/14/23 21:24 100 ml ONCE ONE Administration Lorazepam 1 mg 06/14/23 18:37 06/14/23 18:46 Lorazepam 2 Mg/Ml Vial IVPUSH 06/14/23 18:38 1 mg ONCE ONE Administration Ondansetron HCl 4 mg 06/14/23 14:17 06/14/23 14:18 Ondansetron Odt 4 Mg Tab.Rapdis TRANSLINGU 06/14/23 14:18 4 mg ONCE ONE Administration Discharge Plan Discharge Clinical Impression: Abdominal pain, Transaminitis, Thrombocytopenia, Vomiting, Bilirubinemia Patient Disposition: Home, Self-Care Instructions: At-Risk Alcohol Use (ED), Abdominal Pain (ED) Additional Instructions: As we discussed, you were seen today for abdominal pain and vomiting. Your labs showed continued high liver tests as well as very low platelets and very high bilirubin. These tests tell us that your alcohol use is damaging your body. Highly recommend you stop drinking alcohol. Please have your PCP repeat your lab work in the next 1 week. Return to the ED for: Worsening abdominal pain Vomiting where you cannot drink water Fever Prescriptions: New ondansetron 4 mg tablet,disintegrating 4 mg PO TID PRN (Reason: nausea and vomiting) 5 Days Qty: 10 0RF lorazepam [Ativan] 1 mg tablet 1 mg PO TID PRN (Reason: alcohol withdrawal) Qty: 7 0RF No Action fondaparinux 2.5 mg/0.5 mL syringe 2.5 mg subcut Q24H 30 Days Qty: 15 0RF atenolol 25 mg tablet 25 mg PO DAILY 90 Days Qty: 90 0RF omeprazole 20 mg capsule,delayed release(DR/EC) 20 mg PO DAILY Qty: 90 3RF buprenorphine-naloxone 2-0.5 mg film 1 film sublingual DAILY B-complex with vitamin C Tablet 1 tab PO DAILY 90 Days Qty: 90 1RF Referrals: Zander Coughlin MD [Primary Care Provider] -
[2023-06-14] MEDS: Ondansetron ODT 4 MG TAB.RAPDIS TRANSLINGU (14:18)
[2023-06-14 16:32] VITALS: BP 149/99; PULSE 88; RESP 16; TEMP 36.9; O2SAT 98
--- NOTE | 2023-06-14 16:35 | MHC.EDTECH ---
PATIENT CMP DRAWN AND SENT TO LAB ,VITALS TAKEN .
--- NOTE | 2023-06-14 16:41 | PC.NURSE ---
Pt coming from home, reports LLQ ABD pain since Tuesday night along with multiple episodes of vomiting. Pt denies diarrhea, reports no BM today. Pt reports pain is sharp, 7/10 and decreased PO intake. Pt is alert and oriented, breathing even and unlabored, skin WNL. Pt guarding abdomen, appears uncomfortable.
[2023-06-14 16:51] LABS: Alanine Aminotransferase 140 U/L (0-40); Albumin Level 3.9 g/dL (3.5-5.0); Alkaline Phosphatase 228 U/L (39-117); Anion Gap 13 (12-20); Aspartate Amino Transferase 289 U/L (5-37); Bilirubin Total 5.1 mg/dL (0.0-1.0); Blood Urea Nitrogen 6 mg/dL (9-16); Calcium 9.1 mg/dL (8.4-10.2); Carbon Dioxide 32 mmol/L (22-29); Chloride 99 mmol/L (96-108); Creatinine Clr Calc Pharmacy 185.7; Estimated Glomerular Filt Rate > 60; Glucose Random 120 mg/dL (60-115); Lipase 56 U/L (8-78); Potassium 3.8 mmol/L (3.3-5.1); Sodium 140 mmol/L (135-145)
[2023-06-14 17:20] LABS: Bilirubin Direct 2.9 mg/dL (0.0-0.5); Ethanol < 10 mg/dL
[2023-06-14 17:49] LABS: Ammonia 53 umol/L (13-55)
[2023-06-14 17:51] LABS: INTERNATIONAL NORM RATIO 1.2 (0.9-1.1); Prothrombin Time 14.5 SEC (11.1-13.3)
[2023-06-14 18:00] VITALS: BP 138/93; PULSE 64; RESP 19; TEMP 36.9; O2SAT 94
[2023-06-14] MEDS: 0.9 % Sodium Chloride 1,000 ML 999 ML IV (18:02)
[2023-06-14] MEDS: HYDROmorphone HCl 0.5 MG/0.5 ML SYRINGE IVPUSH (18:03)
--- NOTE | 2023-06-14 18:07 | PC.NURSE ---
Pt does report daily drinking of approx 10 nips a day, vodka. Last drink last night. Pt does have a hx of alcohol withdrawal, has been admitted for it, denies any seizure hx. CIWA score 13 at this time.
--- NOTE | 2023-06-14 18:14 | PC.NURSE ---
Provider aware of pts CIWA, (Dr. Oquendo). Pt taken to US at this time.
[2023-06-14] MEDS: LORazepam 2 MG/ML VIAL 1 MG IVPUSH (18:46)
--- NOTE | 2023-06-14 20:35 | PC.NURSE ---
Pt ca&ox4, no signs of distress. Pt with ct Pts Yeimi would like to be contacted if anything changes @ [phone] Plan of care ongoing.
[2023-06-14 20:49] LABS: Influenza A PCR NEGATIVE (Negative); Influenza B PCR NEGATIVE (Negative); Resp Syncy Virus RNA Qual PCR NEGATIVE (Negative); SARS COV2 PCR INHOUSE NEGATIVE (Negative)
[2023-06-14] MEDS: iohexoL 350 MG/ML 100 ML INFUS..BTL IV (21:23)
[2023-06-14 21:38] VITALS: BP 142/101; PULSE 88; RESP 22; TEMP 36.7; O2SAT 100
--- NOTE | 2023-06-14 22:03 | PC.NURSE ---
Dr khan notified of pts ciwa and b/p Plan of care ongoing.
[2023-06-14] MEDS: diazePAM 10 MG/2 ML CARTRIDGE 5 MG IVPUSH (22:17)
--- NOTE | 2023-06-14 22:22 | PC.NURSE ---
Pt ca&ox4, no signs of distress. Pt resting quietly in bed. Pt medicated per may. Plan of care ongoing.
--- NOTE | 2023-06-14 22:48 | PC.NURSE ---
Pt requested and given ice water. Plan of care ongoing.
--- NOTE | 2023-06-14 23:10 | MHC.CARE ---
CARE Team met with the pt and gave him handouts about different detox facilities. T/W answered all questions that the pt had to the best of t/w ability. Pt is still on the fence about quitting drinking.
--- NOTE | 2023-06-14 23:45 | PC.NURSE ---
Pt requesting detox. Provider khan notified. granite polisher machine Philipp & Nicolasa notified. Plan of care ongoing.
[2023-06-15 02:48] VITALS: BP 131/90; PULSE 80; RESP 18; TEMP 36.6; O2SAT 95
== END 2023-06-15 02:50 | disposition home or self-care (01) ==
PROVIDERS: Emergency Medicine; Emergency Provider Emergency Medicine Emergency Medical Services; PCP Internal Medicine
DX: R10.32 Left lower quadrant pain (principal); R74.01 Elevation of levels of liver transaminase levels; D69.6 Thrombocytopenia, unspecified; R82.2 Biliuria; R10.2 Pelvic and perineal pain; I10 Essential (primary) hypertension; R11.2 Nausea with vomiting, unspecified; Z11.52 Encounter for screening for COVID-19; Z20.822 Contact with and (suspected) exposure to COVID-19; Z79.899 Other long term (current) drug therapy
CPT/HCPCS: 0241U; 36415; 75635; 80053; 80307; 82140; 82248; 83690; 85025; 85610; 93975; 96361; 96374; 96375; 99284; J1170; J2060; J3360; Q9967

== ENCOUNTER 2023-06-16 09:53 | Outpatient (REF) | payer OTHER, SELFPAY ==
--- NOTE | ~2023-06-16 | US_ITS ---
EXAMINATION: US VENOUS ULTRASOUND WITH DOPPLER LOWER EXTREMITY, LEFT CLINICAL INFORMATION: History of thrombophlebitis of left leg. COMPARISON: Right lower extremity venous ultrasound from 10/22/2019. Left lower extremity venous ultrasound from 05/09/2023. TECHNIQUE: Ultrasound of the deep veins is performed from the hip to the calf with compression sonography and color and pulse Doppler assessment. Spectral analysis with color-flow imaging is performed. FINDINGS: The common femoral vein is compressible and exhibits a normal phasic waveform; this suggests that the iliac veins are widely patent above. Within the proximal thigh, the visualized profunda femoris vein is normal, and the examined greater saphenous vein and saphenofemoral junction are normal. Mildly dilated varicose veins are seen within the thigh. Again noted is a varicose vein communicating with the greater saphenous vein that is noncompressible from the mid thigh to the mid calf. The findings are consistent with superficial thrombophlebitis. There is no visible flow within the lumen of the clotted superficial vein. The overall extent of thrombosis is not significantly changed compared to 05/09/2023. Superficial femoral vein is patent in the proximal, mid and distal thigh. Popliteal vein is normal to the level of the trifurcation. On compression miles scale and color Doppler images, the visualized posterior tibial and peroneal veins of the calf are patent. No evidence of Souza's cyst. US/US venous duplex LE LT IMPRESSION: * No evidence of deep vein thrombosis in the left lower extremity. * There are persistent sonographic findings of superficial vein thrombosis/thrombophlebitis affecting a branch of the greater saphenous vein from the mid calf to mid thigh.
== END 2023-06-16 09:54 | disposition home or self-care (01) ==
LOC: HO.HMGCX 09:53
PROVIDERS: PCP Internal Medicine; Visit Provider Internal Medicine
DX: Z09 Encounter for follow-up examination after completed treatment for conditions other than malignant neoplasm (principal); I82.812 Embolism and thrombosis of superficial veins of left lower extremity
CPT/HCPCS: 93971

== ENCOUNTER 2023-06-27 15:52 | Outpatient (AMB) | payer OTHER, SELFPAY ==
[2023-06-27 16:01] VITALS: BP 112/71; RESP 92; BMI 28.6
--- NOTE | 2023-06-27 16:01 | A.OFFVIS_ITS ---
Intake Vital Signs 06/27/23 16:01 Height 6 ft 2 in Weight 223 lb 1.725 oz BMI 28.6 BP 112/71 Blood Pressure Location Lt brachial Position Sitting Respiration 92 H Intake Visit Reasons: Alcohol dependence Intake Note: Marvel presents in office today for follow up of abnormal liver enzymes and alcohol dependence. CC: Patient c/o acid reflux, and abdominal cramps. Denies other GI symptoms today. Presetter Operator Required: No Accompanied by: Self / Same As Patient Allergies No Known Allergies Allergy (Verified 06/27/23 16:11) HPI Alcohol dependence HPI Details LAST VISIT Abnormal liver enzymes Plan As mentioned above in HPI patient had elevated liver enzymes and alk-phos. Most likely his transaminitis represented alcoholic hepatitis, and now that patient is not drinking alcohol his levels normalized. Discussed with patient the importance of staying away from alcohol. Patient states that he has not drank for 7 weeks and is not planning to do so. 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 I will see him in 6 months to re-evaluate. We will repeat ultrasound. His ceruloplasmin was normal as well as alpha 1 antitrypsin. Patient is agreeable to plan of care. He was instructed to call us if he will develop any other concerning symptoms. Constipation Plan Patient reports to have occasional constipation. Patient was instructed to increase fiber in his diet as well as make sure that he is drinking plenty of fluids. 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 I will send him a script for stool softener he can take it every evening. He is agreeable to this plan Medications New: docusate sodium 100 mg PO BEDTIME 30 caps 3RF LUQ cramping Plan LUQ pain occasional. Negative tenderness on exam most likely the pain is related to a gas TRAPPING and patient being constipated. His lab work on September 15 for was negative for any abnormalities. Patient was encouraged to continue be abstinent from alcohol. He is agreeable to plan of care and verbalizes understanding of instructions. I will see him in 6 months, sooner if he will develop any GI concerning symptoms. He will call us. We will see him in 6 months to redo his lab work as well as abdominal ultrasound. He was given the opportunity to ask questions and all questions answered. ? * TODAY'S VISIT 33-year-old male with past medical histo ry of heavy eating use, DVT, alcoholic peripheral neuropathy, transaminitis, depression is here today for new consultation. Patient was seen by me back in 2020 for similar problem. At that time patient stopped drinking. He was sober for only few months and then started drinking again. Recent visit to ER for abdominal pain. Patient has been drinking usually hard liquor, however in the last 3 weeks he has been drinking spiked [place]. Patient is trying to stop drinking. Was given Ativan at discharge which patient reports that it helped him. Patient reports left lower quadrant pain and left upper quadrant pain. States that he moves his bowels daily. Patient was started on omeprazole and reports that his symptoms of postprandial epigastric discomfort got much better. Patient denies any nausea or vomiting. Liver enzymes elevated, thrombocytopenia. Patient denies any melena, hematochezia, unintentional weight loss or ribbon like stools. Laboratory Tests 06/14/23 06/14/23 06/14/23 12:36 16:32 16:32 MCH 33.1 H Plt Count 40 L D Total Bilirubin 5.1 H Direct Bilirubin 2.9 H AST 289 H ALT 140 H Alkaline Phosphata se 228 H Ammonia Lipase 56 06/14/23 17:38 MCH Plt Count Total Bilirubin Direct Bilirubin AST ALT Alkaline Phosphata se Ammonia 53 Lipase PFSH Medical History Neuropathy Sensory ataxia Clavicle fracture Alcohol abuse Foot pain, bilateral Abnormal complete blood count Abnormal liver enzymes No known health problems Surgical History Hx of skin graft Family History Paternal Grandfather Cancer Paternal Grandmother Cancer Social History Housing: Condominium Alcohol intake: current Alcohol intake frequency: holidays/special occasions only Alcohol type: beer Patient Tobacco Use Status: Former Tobacco user Cigarettes Per Day: 8 Years Smoked: 10 e-Cigarette/Vaping Use: Currently Using Substance Use Type: Marijuana service: No 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 status: 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 Review of Systems Const Denies weight gain and Denies weight loss ENT Reports no additional complaints, Denies dysphagia and Denies odynophagia Card Reports no additional complaints Resp Reports no additional complaints GI Reports abdominal pain (LLQ), Denies belching, Denies melena, Denies bloating, Denies change in bowel habits, Reports constipation, Denies dysphagia, Denies excessive flatus, Denies dyspepsia, Reports heartburn, Denies diarrhea, Denies loose stools, Denies nausea, Denies odynophagia and Denies vomiting Reports no additional complaints Musc Reports no additional complaints Neuro Reports no additional complaints Psych Reports no additional complaints Endo Reports no additional complaints Physical Exam Vital Signs: Last Vital Signs Resp 92 H 06/27/23 16:01 BP 112/71 06/27/23 16:01 BMI result Body Mass Index 28.6 Const General: healthy appearing, no acute distress and well developed Nutritional Appearance: well nourished Orientation/consciousness: patient oriented x3 Resp Effort & Inspection: normal respiratory effort, able to speak in complete sentences, no tracheal deviation and symmetric chest movement Auscultation: clear to auscultation bilaterally Cardio Rate: regular rate GI Inspection: Yes normal to inspection, No distended and Yes obesity Palpation (GI): Soft to palpation, not firm, nontender and No hepatosplenomegaly present Auscultation: normal bowel sounds General: Yes no CVA tenderness Back/Spine/Pelvis Back: no CVA tenderness Skin General skin exam: elasticity normal, turgor normal and dry skin Neuro General: patient oriented x3 Psych Appearance: grossly normal Mental Status: mental status grossly normal Assessment & Plan Assessment & Plan (1) Alcoholism: Code(s): F10.20 - Alcohol dependence, uncomplicated (2) Transaminitis: Code(s): R74.01 - Elevation of levels of liver transaminase levels (3) LLQ abdominal pain: Code(s): R10.32 - Left lower quadrant pain (4) Postprandial epigastric pain: Code(s): R10.13 - Epigastric pain (5) GERD (gastroesophageal reflux disease): Code(s): K21.9 - Gastro-esophageal reflux disease without esophagitis Qualifiers: Esophagitis presence: esophagitis presence not specified Qualified Code(s): K21.9 - Gastro-esophageal reflux disease without esophagitis Plan Will recheck patient's liver panel, hepatitis panel, ferritin, transglutaminase. Will rule out autoimmune disorders. Will send patient for ultrasound. At some point patient should go for upper endoscopy to rule out varices. Patient was encouraged to avoid alcohol. High-protein diet discussed with him. Will start patient on Colace. Exam negative for any tenderness or rebound tenderness. He will return in the office in 2 months, sooner on as needed basis. He is agreeable to this plan and verbalizes understanding of instructions. He was given the opportunity to ask questions and all questions answered. Thank you for allowing me to participate in his care Orders: Orders Liver Panel Today R74.01 - Elevation of levels of liver transaminase levels Ferritin Today R74.8 - Abnormal levels of other serum enzymes HIV Ab/Ag Today R79.89 - Other specified abnormal findings of blood chemistry Transglutaminase IgA Today R10.9 - Unspecified abdominal pain Mitochondrial Antibody Today R79.89 - Other specified abnormal findings of blood chemistry US abdomen comp w elastography Today R79.89 - Other specified abnormal findings of blood chemistry Gamma Glutamyl Transpeptidase Today R74.8 - Abnormal levels of other serum enzymes Lipase Today R10.9 - Unspecified abdominal pain C Reactive Protein Today K58.9 - Irritable bowel syndrome without diarrhea Hepatitis A,B,C Profile Today R79.89 - Other specified abnormal findings of blood chemistry Smooth Muscle Antibody Today R79.89 - Other specified abnormal findings of blood chemistry Transglutaminase Ab IgG Today R10.9 - Unspecified abdominal pain Ceruloplasmin Today R79.89 - Other specified abnormal findings of blood chemistry Complete Blood Count no Diff Today K21.9 - Gastro-esophageal reflux disease without esophagitis Prothrombin Time INR Today R74.8 - Abnormal levels of other serum enzymes Medications: New docusate sodium 100 mg PO DAILY 30 caps 3RF K59.00 - Constipation, unspecified Coding Level of Care Code Est Pt Level 4 (66130) Diagnoses Alcoholism F10.20 Transaminitis R74.01 LLQ abdominal pain R10.32 Postprandial epigastric pain R10.13 Gastroesophageal reflux disease, unspecified whether esophagitis present K21.9 Esophagitis presence: esophagitis presence not specified Time Spent (min) 40 Comment 25 minutes spent with patient and additional 15 minutes spent reviewing his records
== END 2023-06-27 16:29 | disposition home or self-care (01) ==
PROVIDERS: PCP Internal Medicine; Visit Provider Nurse Practitioner Family
DX: F10.20 Alcohol dependence, uncomplicated (principal); R74.01 Elevation of levels of liver transaminase levels; R10.32 Left lower quadrant pain; R10.13 Epigastric pain; K21.9 Gastro-esophageal reflux disease without esophagitis
CPT/HCPCS: 99214

== ENCOUNTER → 2023-06-27 15:52 | Outpatient (BNVA) | payer OTHER, SELFPAY | PROVIDERS: PCP Internal Medicine; Visit Provider Nurse Practitioner Family | DX: K21.9 Gastro-esophageal reflux disease without esophagitis (principal); K58.9 Irritable bowel syndrome, unspecified; R79.89 Other specified abnormal findings of blood chemistry; R74.8 Abnormal levels of other serum enzymes; R10.32 Left lower quadrant pain; R10.13 Epigastric pain; R74.01 Elevation of levels of liver transaminase levels; F10.20 Alcohol dependence, uncomplicated | CPT/HCPCS: 99212 ==

== ENCOUNTER 2023-07-01 13:11 | Outpatient (AMB) | payer OTHER, SELFPAY ==
[2023-07-01 13:15] VITALS: BP 112/76; PULSE 72; O2SAT 94; BMI 28.9
--- NOTE | 2023-07-01 13:15 | A.OFFPC_ITS ---
Vital Signs 07/01/23 13:15 Height 6 ft 2 in Weight 225 lb BMI 28.9 BP 112/76 Blood Pressure Location Rt brachial Position Sitting Pulse 72 Pulse Source Pulse Oximeter Pulse Oximetry (%) 94 Oxygen Delivery Method Room Air Intake Visit Reasons: [facility] stomach pain Allergies No Known Allergies Allergy (Verified 07/01/23 13:17) Medication List - Last Reconciled 07/01/23 by Zander Coughlin MD atenolol 25 mg PO DAILY 90 days B-complex with vitamin C 1 tab PO DAILY 90 days buprenorphine-naloxone 2-0.5 mg 1 film sublingual DAILY docusate sodium 100 mg PO DAILY fondaparinux 2.5 mg (0.5 mL) subcut Q24H 30 days gabapentin 100 mg PO BID 30 days lorazepam 1 mg PO TID PRN omeprazole 20 mg PO DAILY ondansetron 4 mg PO TID PRN 5 days Tobacco use date assessed: 06/08/23 Dental Screening Dental Screen Date: 06/08/23 HPI [facility] stomach pain HPI Details Patient is 33-year-old gentleman with history of thrombosis of left sap henous vein, hypertension, alcoholic neuropathy, alcohol use disorder, drinking 6 nips of vodka daily, presented to [facility] Emergency room on 13 of June with a chief complaint of left lower quadrant pain of 3 days' duration associated with nausea and vomiting. Labs showed elevated total bili and direct bilirubin, significant thrombocytopenia , platelet count of 40 and LFT elevation with ammonia of 53 Ultrasound abdomen negative for portal vein thrombosis Main portal vein was patent Patient has already had appointment with gastroenterology 26 of June I am stopping his Lovenox due to low platelet count Once again instructed to stop drinking as soon as possible He tells me that he has stopped drinking vodka now he only drinks beer occasionally He tells me that lorazepam given in emergency room has helped him quit drinking, he is requesting refill on that Patient is aware that he is not supposed to be drinking any hard liquor while taking lorazepam and the lorazepam causes drowsiness so do not climb ladders or work with machinery I have sent lorazepam 1 mg t.i.d. for 1 month, patient is to return within 1 month for re-evaluation and then we will start tapering him off For alcoholic neuropathy patient is seeing a neurologist in [place] and is taking gabapentin 100 mg b.i.d. Blood pressure is stable pulse ox 94 room air pulse is 72 Patient has started eating and is able to tolerate without abdominal pain [facility] Medical History Neuropathy Sensory ataxia Clavicle fracture Alcohol abuse Foot pain, bilateral Abnormal complete blood count Abnormal liver enzymes No known health problems Surgical History Hx of skin graft Family History Paternal Grandfather Cancer Paternal Grandmother Cancer Social History Housing: Condominium Alcohol intake: current Alcohol intake frequency: holidays/special occasions only Alcohol type: beer Patient Tobacco Use Status: Former Tobacco user Cigarettes Per Day: 8 Years Smoked: 10 e-Cigarette/Vaping Use: Currently Using Substance Use Type: Marijuana service: No 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 status: 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 Michele Braswell, Andree Rodriguez, Niles Meléndez and colleagues, with an educational kel from [employer]. Review of Systems Const Denies chills and Denies fever(s) ENT Denies epistaxis and Denies nasal discharge Card Denies chest pain Resp Denies chest congestion, Denies cough and Denies hemoptysis GI Denies diarrhea and Denies nausea Skin/Breast Denies rash Neuro Reports no additional complaints Psych Reports no additional complaints Endo Reports no additional complaints Physical exam (Primary Care) Vital Signs: Last Vital Signs Pulse 72 07/01/23 13:15 BP 112/76 07/01/23 13:15 Pulse Ox 94 07/01/23 13:15 Oxygen Delivery Method Room Air 07/01/23 13:15 BMI result Body Mass Index 28.9 Tobacco/Smoking Status: Tobacco use Status Tobacco use date assessed 06/08/23 07/01/23 13:18 Patient Tobacco Use Status Former Tobacco user 07/01/23 13:18 Tobacco use type 06/27/23 16:26 e-Cigarette/Vaping Use Currently Using 07/01/23 13:18 Thrive Assessment: Date of Thrive Assessment Date Thrive assessed 05/18/23 07/01/23 13:18 Const General: cooperative, comfortable and no acute distress Orientation/consciousness: patient oriented x3 HENMT Head: Yes normocephalic Eyes General: appearance normal, both eyes and all related structures Neck Neck: Yes supple Resp Effort & Inspection: normal respiratory effort, no cough and no stridor Cardio Rhythm: regular rhythm Heart sounds: S1 normal heart sound present and S2 normal heart sound present Skin General skin exam: turgor normal Neuro General: patient oriented x3, tone normal and moves all extremities Assessment and Plan Assessment & Plan (1) Thrombocytopenia: Code(s): D69.6 - Thrombocytopenia, unspecified (2) Thrombosis of left saphenous vein: Code(s): I82.812 - Embolism and thrombosis of superficial veins of left lower extremity (3) LFT elevation: Code(s): R79.89 - Other specified abnormal findings of blood chemistry (4) Alcoholism: Code(s): F10.20 - Alcohol dependence, uncomplicated (5) Hypertension, essential: Code(s): I10 - Essential (primary) hypertension Plan Patient is 33-year-old gentleman with history of thrombosis of left saphenous vein, hypertension, alcoholic neuropathy, alcohol use disorder, drinking 6 nips of vodka daily, presented to [facility] Emergency room on 13 of June with a chief complaint of left lower quadrant pain of 3 days' duration associated with nausea and vomiting. Labs showed elevated total bili and direct bilirubin, significant thrombocytopenia , platelet count of 40 and LFT elevation with ammonia of 53 Ultrasound abdomen negative for portal vein thrombosis Main portal vein was patent Patient has already had appointment with gastroenterology 26 of June I am stopping his Lovenox due to low platelet count Once again instructed to stop drinking as soon as possible He tells me that he has stopped drinking vodka now he only drinks beer occasionally He tells me that lorazepam given in emergency room has helped him quit drinking, he is requesting refill on that Patient is aware that he is not supposed to be drinking any hard liquor while taking lorazepam and the lorazepam causes drowsiness so do not climb ladders or work with machinery I have sent lorazepam 1 mg t.i.d. for 1 month, patient is to return within 1 month for re-evaluation and then we will start tapering him off For alcoholic neuropathy patient is seeing a neurologist in [place] and is taking gabapentin 100 mg b.i.d. Blood pressure is stable pulse ox 94 room air pulse is 72 Patient has started eating and is able to tolerate without abdominal pain Orders: Orders Complete Blood Count Auto Diff Today D69.6 - Thrombocytopenia, unspecified Medications: New lorazepam 1 mg PO TID 30 days PRN 90 tabs 0RF anxiety Coding Level of Care Code Est Pt Level 4 (58460) Diagnoses Thrombocytopenia D69.6 Thrombosis of left saphenous vein I82.812 LFT elevation R79.89 Alcoholism F10.20 Hypertension, essential I10
== END 2023-07-01 13:46 | disposition home or self-care (01) ==
PROVIDERS: PCP Internal Medicine; Visit Provider Internal Medicine
DX: D69.6 Thrombocytopenia, unspecified (principal); F10.20 Alcohol dependence, uncomplicated; I82.812 Embolism and thrombosis of superficial veins of left lower extremity; R79.89 Other specified abnormal findings of blood chemistry; I10 Essential (primary) hypertension
CPT/HCPCS: 99214

== ENCOUNTER 2023-07-01 13:33 | Outpatient (REF) | payer OTHER, SELFPAY ==
[2023-07-01 16:29] LABS: MANUAL DIFF FLAG NO
[2023-07-01 16:36] LABS: Basophils Absolute Auto 0.1 X10*3/uL (0.0-0.2); Basophils Percent Auto 1.3 % (0-2); Eosinophils Absolute Auto 0.2 X10*3/uL (0.0-0.4); Eosinophils Percent Auto 2.9 % (0-4); Hematocrit 48.8 % (42.0-52.0); Hemoglobin 16.6 g/dl (14.0-18.0); Imm Gran Abs Auto 0.01 X10*3/uL (0.00-0.03); Imm Gran Pct Auto 0.2 % (0.0-0.4); Lymphocytes Absolute Auto 1.6 X10*3/uL (1.2-4.9); Lymphocytes Percent Auto 29.9 % (20-40); Mean Corpuscular Hemoglobin 32.7 pg (27.0-33.0); Mean Corpuscular Volume 96.3 fL (80.0-98.0); Mean Platelet Volume 11.1 fL (9.4-12.4); Monocytes Absolute Auto 0.7 X10*3/uL (0.1-1.2); Neutrophils Absolute Auto 2.8 x10*3/uL (2.0-8.3); Neutrophils Percent Auto 52.7 % (45-73); Platelet Count 226 X10*3/uL (160-400); Red Blood Count 5.07 X10*6/uL (4.60-5.80); Red Cell Distribution Width 11.7 % (11.0-16.0); White Blood Count 5.2 X10*3/uL (4.8-10.8)
[2023-07-01 16:41] LABS: INTERNATIONAL NORM RATIO 1.1 (0.9-1.1); Prothrombin Time 13.1 SEC (11.1-13.3)
[2023-07-01 17:04] LABS: Alanine Aminotransferase 83 U/L (0-40); Albumin Level 3.8 g/dL (3.5-5.0); Alkaline Phosphatase 202 U/L (39-117); Aspartate Amino Transferase 134 U/L (5-37); Bilirubin Direct 0.6 mg/dL (0.0-0.5); C Reactive Protein 1.05 mg/dL (< or = 0.50); Gamma Glutamyl Transpeptidase 331 U/L (11-51); Lipase 50 U/L (8-78); Total Protein 6.6 g/dL (6.5-8.0)
[2023-07-01 17:20] LABS: Ferritin 368 ng/mL (20-250)
[2023-07-02 09:41] LABS: HBS Num1 178.72 mIU/mL (0-7.99); HBc Num1 0.12 S/CO (0.00-0.79); HBsAGNum1 0.43 S/CO (0.00-0.99); HIV AB/AG Nonreactive (Nonreactive); HIV Num 1 0.06 S/CO (0.00-0.99); Hepatitis A Antibody IgM 0.23 Index (0-0.79); Hepatitis B Core Antibody Nonreactive (Nonreactive); Hepatitis B Surface Antigen Negative (Negative); ~HepC Num1 0.16 S/CO (0.00-0.79); ~Hepatitis A Antibody IgM Nonreactive (Nonreactive); ~Hepatitis B Surface Antibody REACTIVE (Nonreactive); ~Hepatitis C Antibody Nonreactive (Nonreactive)
[2023-07-04 18:29] LABS: Ceruloplasmin 31 mg/dL (18-36)
[2023-07-05 13:04] LABS: Mitochondrial Antibodies NEGATIVE (NEGATIVE)
[2023-07-06 06:58] LABS: Transglutaminase Ab IgG <1.0 U/mL; Transglutaminase IgA <1.0 U/mL
[2023-07-07 13:13] LABS: Smooth Muscle Antibody <20 U (<20)
== END 2023-07-01 13:34 | disposition home or self-care (01) ==
LOC: HO.HMGCLDS 13:33
PROVIDERS: PCP Internal Medicine; Referring Provider Nurse Practitioner Family; Visit Provider Internal Medicine
DX: D69.6 Thrombocytopenia, unspecified (principal); R79.89 Other specified abnormal findings of blood chemistry; R74.8 Abnormal levels of other serum enzymes; K58.9 Irritable bowel syndrome, unspecified; K21.9 Gastro-esophageal reflux disease without esophagitis; R74.01 Elevation of levels of liver transaminase levels; R10.9 Unspecified abdominal pain
CPT/HCPCS: 36415; 80076; 82390; 82728; 82977; 83690; 85025; 85027; 85610; 86015; 86140; 86364; 86381; 86704; 86706; 86709; 86803; 87340; 87389

== ENCOUNTER 2023-07-11 06:53 | Emergency (ER) | payer OTHER, SELFPAY ==
--- NOTE | ~2023-07-11 | US_ITS ---
EXAMINATION: US VENOUS ULTRASOUND WITH DOPPLER LOWER EXTREMITY, BILATERAL CLINICAL INFORMATION: Bilateral leg pain COMPARISON: Venous ultrasound 06/16/2023-left, no, DVT Venous ultrasound 05/09/2023-left, no DVT Venous ultrasound 10/22/2019-right, no DVT TECHNIQUE: Ultrasound of the deep veins is performed from the hip to the calf with compression sonography and color and pulse Doppler assessment. Spectral analysis with color-flow imaging is performed. FINDINGS: RIGHT: There is normal venous compression and respiratory variation and augmented flow. The visualized common femoral vein, superficial femoral vein, profunda femoral vein, popliteal vein, and the posterior tibial and peroneal veins shows no evidence of deep venous thrombosis. Superficial thrombophlebitis is seen in the right calf, proximal to distal. LEFT: There is normal venous compression and respiratory variation and augmented flow. The visualized common femoral vein, superficial femoral vein, profunda femoral vein, popliteal vein, and the trifurcation region shows no evidence of deep venous thrombosis. Superficial thrombophlebitis is seen in the left distal thigh. US/US venous duplex LE BI IMPRESSION: 1. No DVT demonstrated in the bilateral lower extremities. 2. Bilateral superficial thrombophlebitis.
[2023-07-11 06:59] VITALS: BP 117/87; PULSE 82; RESP 20; TEMP 36.7; O2SAT 99; BMI 28.9
[2023-07-11 07:21] LABS: MANUAL DIFF FLAG NO
[2023-07-11 07:30] LABS: Basophils Percent Auto 0.4 % (0-2); Eosinophils Absolute Auto 0.2 X10*3/uL (0.0-0.4); Eosinophils Percent Auto 4.7 % (0-4); Hematocrit 51.7 % (42.0-52.0); Hemoglobin 17.8 g/dl (14.0-18.0); Imm Gran Abs Auto 0.01 X10*3/uL (0.00-0.03); Imm Gran Pct Auto 0.2 % (0.0-0.4); Lymphocytes Absolute Auto 1.3 X10*3/uL (1.2-4.9); Lymphocytes Percent Auto 29.4 % (20-40); Mean Corpuscular HGB Conc 34.4 g/dl (31.0-36.0); Mean Corpuscular Hemoglobin 32.5 pg (27.0-33.0); Mean Corpuscular Volume 94.3 fL (80.0-98.0); Mean Platelet Volume 10.4 fL (9.4-12.4); Monocytes Absolute Auto 0.6 X10*3/uL (0.1-1.2); Monocytes Percent Auto 12.7 % (2-11); Neutrophils Absolute Auto 2.4 x10*3/uL (2.0-8.3); Neutrophils Percent Auto 52.6 % (45-73); Platelet Count 132 X10*3/uL (160-400); Red Blood Count 5.48 X10*6/uL (4.60-5.80); Red Cell Distribution Width 11.9 % (11.0-16.0); White Blood Count 4.5 X10*3/uL (4.8-10.8)
[2023-07-11 07:37] LABS: Alanine Aminotransferase 58 U/L (0-40); Albumin Level 3.4 g/dL (3.5-5.0); Alkaline Phosphatase 188 U/L (39-117); Anion Gap 11 (12-20); Aspartate Amino Transferase 112 U/L (5-37); Bilirubin Total 1.4 mg/dL (0.0-1.0); Blood Urea Nitrogen 3 mg/dL (9-16); Calcium 8.5 mg/dL (8.4-10.2); Carbon Dioxide 26 mmol/L (22-29); Chloride 107 mmol/L (96-108); Creatinine Clr Calc Pharmacy 209.3; Estimated Glomerular Filt Rate > 60; Glucose Random 135 mg/dL (60-115); Potassium 4.6 mmol/L (3.3-5.1); Sodium 139 mmol/L (135-145); Total Protein 6.5 g/dL (6.5-8.0)
--- NOTE | 2023-07-11 09:16 | ED_ITS ---
HPI - Extremity Problem General Chief complaint: Extremity Injury, Lower Stated complaint: Pain R leg Time Seen by Provider: 07/11/23 09:13 Source: patient Mode of arrival: ambulatory Limitations: no limitations History of Present Illness HPI Narrative: 33 yo male with history of HTN, neuropathy, sensory ataxia w/ recurrent falls, alcoholism, thrombocytopenia, and recent superficial vein (left saphenous vein) thrombosis treated with fondaparinux who presents to the ER for evaluation of right calf pain and vein swelling. he states for the last 4 days he has had an area of red, tender, swollen veins in his right calf. He had to stop the fondaparinux because his platelets were low in May. He states he has had pain in the right calf that is now extending up to the right thigh. He denies any shortness a breath or chest pain. He does admit that 3 of his siblings have had blood clots in the past. He is unsure if there diagnosed with a clotting disorder. He denies any personal history of DVT or PE. No bleeding disorders. MD Complaint: extremity pain and extremity swelling Onset (ago): day(s) Pain Consistency: constant Location: right and lower extremity Quality: aching Radiation: proximal Relieving factors: rest Exacerbating factors: walking and palpation Associated symptoms: denies other symptoms Related Data Home Medications ?Medication ?Instructions ?Recorded ?Confirmed buprenorphine 2 mg-naloxone 0.5 mg 1 film sublingual DAILY 12/31/21 07/01/23 sublingual film Previous Rx's ?Medication ?Instructions ?Recorded omeprazole 20 mg capsule,delayed 20 mg PO DAILY #90 caps 11/24/22 release B-complex with vitamin C 1 tab PO DAILY 90 days #90 tabs 12/17/22 atenolol 25 mg tablet 25 mg PO DAILY 90 days #90 tabs 06/08/23 ondansetron 4 mg disintegrating 4 mg PO TID PRN nausea and 06/14/23 tablet vomiting 5 days #10 tabs lorazepam 1 mg tablet 1 mg PO TID PRN alcohol withdrawal 06/15/23 #7 tabs fondaparinux 2.5 mg/0.5 mL 2.5 mg (0.5 mL) subcut Q24H 06/21/23 subcutaneous solution syringe Superficial phlebitis 30 days #15 mL docusate sodium 100 mg capsule 100 mg PO DAILY #30 caps 06/27/23 gabapentin 100 mg capsule 100 mg PO BID 30 days #60 caps 06/30/23 lorazepam 1 mg tablet 1 mg PO TID PRN anxiety 30 days 07/01/23 #90 tabs fondaparinux 2.5 mg/0.5 mL 2.5 mg (0.5 mL) subcut DAILY #5 mL 07/11/23 subcutaneous solution syringe Allergies Allergy/AdvReac Type Severity Reaction Status Date / Time No Known Allergies Allergy Verified 07/11/23 07:03 Review of Systems 2 Review of Systems: Yes all other systems are reviewed and are negative [facility] Past Medical History Medical History Neuropathy Sensory ataxia Clavicle fracture Alcohol abuse Foot pain, bilateral Abnormal complete blood count Abnormal liver enzymes No known health problems Surgical History Hx of skin graft Family History Family History Paternal Grandfather Cancer Paternal Grandmother Cancer Social History Social History Housing: Condominium Alcohol intake: current Alcohol intake frequency: holidays/special occasions only Alcohol type: beer Patient Tobacco Use Status: Former Tobacco user Cigarettes Per Day: 8 Years Smoked: 10 e-Cigarette/Vaping Use: Currently Using Substance Use Type: Marijuana Advance Directives: No Advance Directives Information Provided: No service: No 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 status: 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 Oriented X3. No acute distress. HEENT: normal inspection CVS: Normal heart rate and rhythm. Pulses normal. Respiratory: No respiratory distress. Skin: Skin warm and dry. Normal skin color. Normal skin turgor. No rashes. Extremities: Right calf with a palpable, tender cord from the mid calf to the popliteal area, mild erythema. leg is warm and well perfused. normal inspection and palpation of the left calf Neuro: Oriented X 3. No motor deficit. No sensory deficit. Medical Decision Making Medical Decision Making [facility] Narrative: 33-year-old male with history of recent left superficial thrombophelbitis s/p fondaparinux which need to be stopped due to thrombocytopenia who is back with right calf pain, swelling, with tender palpable cord. Unclear etiology of recurrent thrombophlebitis. He does have a family history of hypercoagulable state with multiple PEs. Ultrasound today show no evidence deep vein thrombosis. He does have bilateral superficial thrombophlebitis. Case was discussed with Dr. Irene. Platelets today are 132,000. Dr. Irene is recommending re-initiation of fondaparinux. Will have him follow-up with his PCP for platelet monitoring and further management. Also encouraged him to follow up with Hematology for further evaluation and treatment, he has never had a hypercoagulable workup. We discussed return precautions including chest pain and shortness of breath, worsening symptoms. 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 Irene - recommending fondaparinux Lab Data MDM Lab Attestation statement: I reviewed the patient's lab results. Neutropenia, thrombocytopenia 07/11/23 07:17 07/11/23 07:17 Labs: Lab Results 07/11/23 Range/Units 07:17 WBC 4.5 L (4.8-10.8) X10*3/uL RBC 5.48 (4.60-5.80) X10*6/uL Hgb 17.8 (14.0-18.0) g/dl Hct 51.7 (42.0-52.0) % MCV 94.3 (80.0-98.0) fL MCH 32.5 (27.0-33.0) pg MCHC 34.4 (31.0-36.0) g/dl RDW 11.9 (11.0-16.0) % Plt Count 132 L D (160-400) X10*3/uL MPV 10.4 (9.4-12.4) fL Immature Gran % (Auto) 0.2 (0.0-0.4) % Neut % (Auto) 52.6 (45-73) % Lymph % (Auto) 29.4 (20-40) % Dolores % (Auto) 12.7 H (2-11) % Eos % (Auto) 4.7 H (0-4) % Baso % (Auto) 0.4 (0-2) % Lymph # (Auto) 1.3 (1.2-4.9) X10*3/uL Dolores # (Auto) 0.6 (0.1-1.2) X10*3/uL Eos # (Auto) 0.2 (0.0-0.4) X10*3/uL Baso # (Auto) 0.0 (0.0-0.2) X10*3/uL Abs Immat Gran (auto) 0.01 (0.00-0.03) X10*3/uL Absolute Neuts (auto) 2.4 (2.0-8.3) x10*3/uL Absolute Nucleated RBC 0.000 (0.0-0.012) X10*3/uL Nucleated RBC % (auto) 0.0 (0.0-0.2) /100WBC Sodium 139 (135-145) mmol/L Potassium 4.6 D (3.3-5.1) mmol/L Chloride 107 (96-108) mmol/L Carbon Dioxide 26 (22-29) mmol/L Anion Gap 11 L (12-20) BUN 3 L (9-16) mg/dL Creatinine 0.64 (0.5-1.4) mg/dL Estim Creat Clear Calc 209.3 Estimated GFR > 60 Random Glucose 135 H (60-115) mg/dL Calcium 8.5 D (8.4-10.2) mg/dL Total Bilirubin 1.4 H (0.0-1.0) mg/dL AST 112 H (5-37) U/L ALT 58 H (0-40) U/L Alkaline Phosphatase 188 H (39-117) U/L Total Protein 6.5 (6.5-8.0) g/dL Albumin 3.4 L (3.5-5.0) g/dL Independent Interpretation I performed an independent interpretation of an: Ultrasound Interpretation: Superficial clots appreciated, agree with radiologist's read Radiology Impression Discussion of test interpretation with radiology: I have reviewed the radiologist's reading. Radiologist Impression: EXAMINATION: US VENOUS ULTRASOUND WITH DOPPLER LOWER EXTREMITY, BILATERAL CLINICAL INFORMATION: Bilateral leg pain COMPARISON: Venous ultrasound 06/16/2023-left, no, DVT Venous ultrasound 05/09/2023-left, no DVT Venous ultrasound 10/22/2019-right, no DVT TECHNIQUE: Ultrasound of the deep veins is performed from the hip to the calf with compression sonography and color and pulse Doppler assessment. Spectral analysis with color-flow imaging is performed. FINDINGS: RIGHT: There is normal venous compression and respiratory variation and augmented flow. The visualized common femoral vein, superficial femoral vein, profunda femoral vein, popliteal vein, and the posterior tibial and peroneal veins shows no evidence of deep venous thrombosis. Superficial thrombophlebitis is seen in the right calf, proximal to distal. LEFT: There is normal venous compression and respiratory variation and augmented flow. The visualized common femoral vein, superficial femoral vein, profunda femoral vein, popliteal vein, and the trifurcation region shows no evidence of deep venous thrombosis. Superficial thrombophlebitis is seen in the left distal thigh. US/US venous duplex LE BI IMPRESSION: 1. No DVT demonstrated in the bilateral lower extremities. 2. Bilateral superficial thrombophlebitis. External Record Review External record reviewed: Outpatient record, Prior outpatient labs and Prior outpatient radiology Prescription Management I considered prescription management with: Pain Medication and Other (Anticoagulant ) Chronic Conditions Patient?s care impacted by: Other (Alcohol and disorder) Social Determinants Patient?s care significantly limited by Social Determinants of Health including: Alcoholism and drug addiction in family, Problems related to primary support group and Other Social Determinant of Health Critical Care Time Critical Care Time Critical Care Time: No Discharge Plan Discharge Clinical Impression: Superficial thrombophlebitis of both legs Patient Disposition: Home, Self-Care Instructions: Superficial Thrombophlebitis (ED) Additional Instructions: They were 132,000. This is a safe level to start blood thinner. Take the prescribed fondaparinux as directed. Follow-up with primary care doctor this week. Recommend compression stockings. Recommend warm compresses to the area. Also recommend following up with Hematology, name and number below, call for an appointment. If you develop new or worsening symptoms call 911 or come back to the ER for further evaluation. EXAMINATION: US VENOUS ULTRASOUND WITH DOPPLER LOWER EXTREMITY, BILATERAL CLINICAL INFORMATION: Bilateral leg pain COMPARISON: Venous ultrasound 06/16/2023-left, no, DVT Venous ultrasound 05/09/2023-left, no DVT Venous ultrasound 10/22/2019-right, no DVT TECHNIQUE: Ultrasound of the deep veins is performed from the hip to the calf with compression sonography and color and pulse Doppler assessment. Spectral analysis with color-flow imaging is performed. FINDINGS: RIGHT: There is normal venous compression and respiratory variation and augmented flow. The visualized common femoral vein, superficial femoral vein, profunda femoral vein, popliteal vein, and the posterior tibial and peroneal veins shows no evidence of deep venous thrombosis. Superficial thrombophlebitis is seen in the right calf, proximal to distal. LEFT: There is normal venous compression and respiratory variation and augmented flow. The visualized common femoral vein, superficial femoral vein, profunda femoral vein, popliteal vein, and the trifurcation region shows no evidence of deep venous thrombosis. Superficial thrombophlebitis is seen in the left distal thigh. US/US venous duplex LE BI IMPRESSION: 1. No DVT demonstrated in the bilateral lower extremities. 2. Bilateral superficial thrombophlebitis. Prescriptions: New fondaparinux 2.5 mg/0.5 mL syringe 2.5 mg subcut DAILY Qty: 5 1RF No Action fondaparinux 2.5 mg/0.5 mL syringe 2.5 mg subcut Q24H 30 Days Qty: 15 0RF gabapentin 100 mg capsule 100 mg PO BID 30 Days Qty: 60 0RF ondansetron 4 mg tablet,disintegrating 4 mg PO TID PRN (Reason: nausea and vomiting) 5 Days Qty: 10 0RF lorazepam 1 mg tablet 1 mg PO TID PRN (Reason: alcohol withdrawal) Qty: 7 0RF atenolol 25 mg tablet 25 mg PO DAILY 90 Days Qty: 90 0RF omeprazole 20 mg capsule,delayed release(DR/EC) 20 mg PO DAILY Qty: 90 3RF lorazepam 1 mg tablet 1 mg PO TID PRN (Reason: anxiety) 30 Days Qty: 90 0RF buprenorphine-naloxone 2-0.5 mg film 1 film sublingual DAILY B-complex with vitamin C Tablet 1 tab PO DAILY 90 Days Qty: 90 1RF docusate sodium 100 mg capsule 100 mg PO DAILY Qty: 30 3RF Referrals: [facility] [place] [facility] [place]Hematology [Provider Group] Zander Coughlin MD [Primary Care Provider] - Stand Alone Forms: Work/School Release Print Language: Bulgarian
[2023-07-11 12:48] VITALS: BP 117/87; PULSE 82; RESP 20; TEMP 36.6
--- NOTE | 2023-07-13 13:05 | HE.ONCSEC ---
Pt called to see if we got the ER ref
== END 2023-07-11 12:50 | disposition home or self-care (01) ==
PROVIDERS: Emergency Provider Emergency Medicine; PCP Internal Medicine
DX: I80.03 Phlebitis and thrombophlebitis of superficial vessels of lower extremities, bilateral (principal); I10 Essential (primary) hypertension
CPT/HCPCS: 36415; 80053; 85025; 93970; 99282; 99284

== ENCOUNTER 2023-07-19 08:28 | Outpatient (REF) | payer OTHER, SELFPAY ==
--- NOTE | ~2023-07-19 | US_ITS ---
EXAMINATION: US COMPLETE ABDOMEN WITH LIVER ELASTOGRAPHY CLINICAL INFORMATION: Abnormal hepatic enzymes. COMPARISON: None available. TECHNIQUE: Real-time imaging of the abdominal viscera. Noninvasive ultrasound liver fibrosis assessment is performed using Meera ElastPQ point quantification shear wave elastography (2D-SWE) with a C5-2 MHz transducer. Multiple elastography samples are obtained. FINDINGS: PANCREAS: The visualized portions of the pancreas are unremarkable but a large portion of the gland is obscured by bowel gas. ABDOMINAL AORTA: The proximal, middle, and distal aortic segments are normal in caliber. INFERIOR VENA CAVA: Visualized portions are normal. LIVER: The liver is enlarged with increased echogenicity, suggesting hepatic steatosis. No focal lesion or intrahepatic biliary duct dilatation. The right lobe measures 19.5 cm in length. The left lobe measures 13.2 cm in length. Portal flow is towards the liver (hepatopetal). Shear wave liver elastography median stiffness is 1.33 m/s (reference: normal median stiffness is 1.3 m/s or less). IQR/median stiffness to assess sampling precision is 0.14 (reference: good quality data set is IQR/median stiffness of 0.15 or less). GALLBLADDER: Multiple mobile gallstones are seen without evidence of cholecystitis. COMMON BILE DUCT: Normal in caliber measuring 0.7 cm in diameter. RIGHT KIDNEY: Normal. No hydronephrosis. No renal calculi or focal parenchymal lesions. The kidney measures 12.0 cm in maximum dimension. LEFT KIDNEY: Normal. No hydronephrosis. No renal calculi or focal parenchymal lesions. The kidney measures 11.3 cm in maximum dimension. SPLEEN: The spleen is enlarged measuring 14.2 cm in maximum dimension. FREE FLUID: None. US/US abdomen comp w elastography IMPRESSION: 1. Enlarged fatty liver. 2. Liver elastography: In the absence of other known clinical signs, measurements rule out compensated advanced chronic liver disease. If there are known clinical signs, further testing may be needed for confirmation. REFERENCE: Society of Radiologists in Ultrasound Liver Stiffness Thresholds (2020): LIVER STIFFNESS THRESHOLDS: *Liver Stiffness equal or less than 1.3 m/s: High probability of being normal. *Liver Stiffness less than 1.7 m/s: In the absence of other known clinical signs, rules out compensated advanced chronic liver disease. *Liver Stiffness 1.7-2.1 m/s: Suggestive of compensated advanced chronic liver disease but need further test for confirmation. *Liver Stiffness over 2.1 m/s: Rules in compensated advanced chronic liver disease. *Liver Stiffness over 2.4 m/s: Suggestive of clinically significant portal hypertension. QUALITY OF DATA SET: *IQR/Median value equal or less than 0.15 implies a quality data set. *IQR/Median value over 0.15 implies a poor quality data set. SIGNIFICANT CHANGE FROM PRIOR EXAM: Significant change if liver stiffness measurement is 10% or greater from prior exam. OTHER CONSIDERATIONS: The stage of liver fibrosis may be overestimated in the setting of acute hepatitis, liver inflammation, elevated liver function tests, hepatic vascular congestion, obstructive cholestasis, non-fasting state, and infiltrative diseases such as amyloidosis and lymphoma. In some patients with NAFLD, the liver stiffness thresholds for compensated advanced chronic liver disease may be lower. In causes other than viral hepatitis and NAFLD, liver stiffness thresholds are not well established.
== END 2023-07-19 08:29 | disposition home or self-care (01) ==
LOC: HO.US 08:28
PROVIDERS: PCP Internal Medicine; Visit Provider Nurse Practitioner Family
DX: R79.89 Other specified abnormal findings of blood chemistry (principal)
CPT/HCPCS: 76700; 76981

== ENCOUNTER 2023-07-27 15:21 | Outpatient (AMB) | payer OTHER, SELFPAY ==
[2023-07-27 15:22] VITALS: BP 110/78; PULSE 95; O2SAT 96; BMI 27.6
--- NOTE | 2023-07-27 15:22 | A.OFFPC_ITS ---
Vital Signs 3 07/27/23 15:22 Height 6 ft 2 in Weight 215 lb BMI 27.6 BP 110/78 Blood Pressure Location Rt brachial Position Sitting Pulse 95 Pulse Source Pulse Oximeter Pulse Oximetry (%) 96 Oxygen Delivery Method Room Air Intake Visit Reasons: 3 week follow up Allergies No Known Allergies Allergy (Verified 07/27/23 15:25) Medication List - Last Reconciled 07/27/23 by Zander Coughlin MD atenolol 25 mg PO DAILY 90 days B-complex with vitamin C 1 tab PO DAILY 90 days buprenorphine-naloxone 2-0.5 mg 1 film sublingual DAILY docusate sodium 100 mg PO DAILY fondaparinux 2.5 mg (0.5 mL) subcut DAILY fondaparinux 2.5 mg (0.5 mL) subcut Q24H 30 days gabapentin 100 mg PO BID 30 days lorazepam 1 mg PO TID PRN lorazepam 1 mg PO TID PRN 30 days omeprazole 20 mg PO DAILY ondansetron 4 mg PO TID PRN 5 days Tobacco use date assessed: 07/27/23 Dental Screening Dental Screen Date: 06/08/23 HPI 3 week follow up 2 HPI0 Details Patient is a 33-year-old gentleman came in to have medication refill He was started on lorazepam 1 mg 3 times a day so we can stop drinking Patient says that since he has started the medication he has stopped drinking and is now only drinking over the weekend and only 1 or 2 drinks Patient has developed superficial phlebitis right leg as well He was in emergency room and was given Lovenox injection He has appointment with the Hematology coming up in 7 days. I have refilled his lorazepam for next 2 months Patient is to return in 2 months for follow-up appointment PENDING SALE TO [facility] Medical History Neuropathy Sensory ataxia Clavicle fracture Alcohol abuse Foot pain, bilateral Abnormal complete blood count Abnormal liver enzymes No known health problems Surgical History Hx of skin graft Family History Paternal Grandfather Cancer Paternal Grandmother Cancer Social History Housing: Condominium Alcohol intake: current Alcohol intake frequency: holidays/special occasions only Alcohol type: beer Patient Tobacco Use Status: Former Tobacco user Cigarettes Per Day: 8 Years Smoked: 10 e-Cigarette/Vaping Use: Currently Using Substance Use Type: Marijuana service: No 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 status: 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 Michele Braswell, Andree Rodriguez, Niles Meléndez and colleagues, with an educational kel from [employer]. Review of Systems Const Denies chills and Denies fever(s) ENT Denies epistaxis and Denies nasal discharge Card Denies chest pain Resp Denies chest congestion, Denies cough and Denies hemoptysis GI Denies diarrhea and Denies nausea Skin/Breast Denies rash Neuro Reports no additional complaints Psych Reports no additional complaints Endo Reports no additional complaints Physical exam (Primary Care) Vital Signs: Last Vital Signs Pulse 95 07/27/23 15:22 BP 110/78 07/27/23 15:22 Pulse Ox 96 07/27/23 15:22 Oxygen Delivery Method Room Air 07/27/23 15:22 BMI result Body Mass Index 27.6 Tobacco/Smoking Status: Tobacco use Status Tobacco use date assessed 07/27/23 07/27/23 15:25 Patient Tobacco Use Status Former Tobacco user 07/27/23 15:23 Tobacco use type 06/27/23 16:26 e-Cigarette/Vaping Use Currently Using 07/27/23 15:23 Thrive Assessment: Date of Thrive Assessment Date Thrive assessed 05/18/23 07/27/23 15:23 Const General: cooperative, comfortable and no acute distress Orientation/consciousness: patient oriented x3 HENMT Head: Yes normocephalic Eyes General: appearance normal, both eyes and all related structures Neck Neck: Yes supple Resp Effort & Inspection: normal respiratory effort, no cough and no stridor Cardio Rhythm: regular rhythm Heart sounds: S1 normal heart sound present and S2 normal heart sound present Skin General skin exam: turgor normal Neuro General: patient oriented x3, tone normal and moves all extremities Extrem Upper/lower leg/hip images: 2 1. New phlebitis Assessment and Plan Assessment & Plan (1) Superficial thrombophlebitis of both legs: Code(s): I80.03 - Phlebitis and thrombophlebitis of superficial vessels of lower extremities, bilateral (2) Alcoholism: Code(s): F10.20 - Alcohol dependence, uncomplicated Plan Patient is a 33-year-old gentleman came in to have medication refill He was started on lorazepam 1 mg 3 times a day so we can stop drinking Patient says that since he has started the medication he has stopped drinking and is now only drinking over the weekend and only 1 or 2 drinks Patient has developed superficial phlebitis right leg as well He was in emergency room and was given Lovenox injection He has appointment with the Hematology coming up in 7 days. I have refilled his lorazepam for next 2 months Patient is to return in 2 months for follow-up appointment Medications: Refilled 2 lorazepam 1 mg PO TID PRN 90 tabs 1RF anxiety 30 days Coding Level of Care Code Est Pt Level 3 (31649) Diagnoses Superficial thrombophlebitis of both legs I80.03 Alcoholism F10.20
== END 2023-07-27 15:45 | disposition home or self-care (01) ==
PROVIDERS: PCP Internal Medicine; Visit Provider Internal Medicine
DX: I80.03 Phlebitis and thrombophlebitis of superficial vessels of lower extremities, bilateral (principal); F10.20 Alcohol dependence, uncomplicated
CPT/HCPCS: 99213

== ENCOUNTER → 2023-08-05 14:36 | Outpatient (BNV) | payer OTHER, SELFPAY | PROVIDERS: PCP Internal Medicine; Referring Provider Internal Medicine; Visit Provider Internal Medicine Medical Oncology | DX: I80.03 Phlebitis and thrombophlebitis of superficial vessels of lower extremities, bilateral (principal) | CPT/HCPCS: 99204; 99213 ==

== ENCOUNTER 2023-08-15 08:36 | Outpatient (REF) | payer OTHER, SELFPAY ==
[2023-08-15 09:14] LABS: Alanine Aminotransferase 65 U/L (0-40); Aspartate Amino Transferase 137 U/L (5-37)
== END 2023-08-15 08:37 | disposition home or self-care (01) ==
LOC: HO.LAB 08:36
PROVIDERS: Absent Provider Family Medicine; PCP Internal Medicine; Visit Provider Internal Medicine Medical Oncology
DX: F11.20 Opioid dependence, uncomplicated (principal)
CPT/HCPCS: 36415; 84450; 84460

== ENCOUNTER 2023-09-27 15:23 | Outpatient (AMB) | payer OTHER, SELFPAY ==
[2023-09-27 15:28] VITALS: BP 138/92; PULSE 81; O2SAT 96
--- NOTE | 2023-09-27 15:28 | MHC.PC.OV ---
Vital Signs 09/27/23 15:28 Weight 214 lb 6 oz BP 138/92 H Blood Pressure Location Rt brachial Position Sitting Pulse 81 Pulse Source Pulse Oximeter Pulse Oximetry (%) 96 Oxygen Delivery Method Room Air Intake Visit Reasons: Annual PE Allergies No Known Allergies Allergy (Verified 08/05/23 14:42) Medication List - Last Reconciled 09/27/23 by Zander Coughlin MD apixaban (Eliquis) 5 mg PO BID atenolol 25 mg PO DAILY buprenorphine-naloxone 2-0.5 mg 1 film sublingual DAILY gabapentin 100 mg PO BID 30 days lorazepam 1 mg PO TID PRN lorazepam 1 mg PO TID PRN 30 days omeprazole 20 mg PO DAILY Tobacco use date assessed: 09/27/23 Dental Screening Dental Screen Date: 09/27/23 Did you have a dental visit in the last 12 months?: No Did you have a dental problem in the last 6 months where you did not have access to dental care?: No Was dental information given to patient?: Patient has dentist HPI Annual PE HPI Details 33 yo male with history of HTN, neuropathy, sensory ataxia w/ recurrent falls, alcoholism, thrombocytopenia, and recent superficial vein (left saphenous vein) thrombosis treated with Eliquis Patient is now seeing hematology for the management Hypercoagulable state workup is in process Alcoholism, long history, LFTs elevated, patient is seeing Gastroenterology Last set of labs were be of this year potassium was 1 point low than normal He is having difficulty working now, 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 so he can stop drinking I have told him that he need to stop completely by next appointment. He is also on blood pressure medication. Gastroenterology appointment coming up 27 of October [facility] Medical History Neuropathy Sensory ataxia Clavicle fracture Alcohol abuse Foot pain, bilateral Abnormal complete blood count Abnormal liver enzymes No known health problems Surgical History Hx of skin graft Family History Paternal Grandfather Cancer Paternal Grandmother Cancer Social History Household Members: Spouse Housing: Condominium Alcohol intake: current Alcohol intake frequency: holidays/special occasions only Alcohol type: beer Patient Tobacco Use Status: Former Tobacco user Years Smoked: 10 e-Cigarette/Vaping Use: Currently Using Substance Use Type: Marijuana service: No 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 status: 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 Questionnaire Thrive Questionnaire Date Thrive assessed: 05/18/23 AUDIT C Alcohol Use Questionnaire (AUDIT-C) 1. How often do you have a drink containing alcohol?: Never 3. How often do you have six or more drinks on one occasion?: Never Total Score: 0 Score Reviewed/Action Taken: Yes CONNOR-7 AMB Questionnaire CONNOR-7 Date CONNOR - 7 assessed: 05/18/23 Source: Developed by Drs. Michele Braswell, Andree Rodriguez, Niles Meléndez and colleagues, with an educational kel from [email or web address]. Review of Systems Const Denies chills, Denies fever(s) and Denies headache(s) Eyes Denies blurry vision ENT Denies headache(s), Denies nasal discharge, Denies nasal obstruction, Denies odynophagia and Denies sinus pain Card Denies chest pain at rest and Denies chest pain with activity Resp Denies cough and Denies hemoptysis GI Denies diarrhea, Denies odynophagia, Denies vomiting and Denies hematemesis Reports as per HPI Musc Denies abnormal gait Skin/Breast Reports as per HPI Neuro Denies Neuro-related abnormal movements, Denies Abnormal speech present, Denies abnormal gait and Denies headache(s) Psych Denies mood swings and Denies paranoia Endo Reports as per HPI Jadiel/Lymph Reports as per HPI Aller/Immun Reports as per HPI Physical exam (Primary Care) Vital Signs: Last Vital Signs Pulse 81 09/27/23 15:28 BP 138/92 H 09/27/23 15:28 Pulse Ox 96 09/27/23 15:28 Oxygen Delivery Method Room Air 09/27/23 15:28 Tobacco/Smoking Status: Tobacco use Status Tobacco use date assessed 07/27/23 07/27/23 15:25 Patient Tobacco Use Status Former Tobacco user 07/27/23 15:23 Tobacco use type 06/27/23 16:26 e-Cigarette/Vaping Use Currently Using 07/27/23 15:23 Thrive Assessment: Date of Thrive Assessment Date Thrive assessed 05/18/23 07/27/23 15:23 Const General: cooperative, comfortable and no acute distress Orientation/consciousness: patient oriented x3 HENMT Head: Yes normocephalic and Yes atraumatic Eyes General: appearance normal, both eyes and all related structures Pupils: Equal, round and reactive pupils present EOM: EOMs intact bilaterally Neck Neck: Yes supple and No lymphadenopathy Thyroid: Thyroid normal Lymphatic: no lymphadenopathy noted Resp Effort & Inspection: normal respiratory effort and able to speak in complete sentences Auscultation: clear to auscultation bilaterally Cardio Heart sounds: S1 normal heart sound present and S2 normal heart sound present GI Palpation (GI): Soft to palpation and nontender Auscultation: normal bowel sounds Skin General skin exam: elasticity normal and turgor normal Neuro General: patient oriented x3 and gait normal Cranial nerves: Yes Equal, round and reactive pupils present Speech: No Abnormal speech present Coordination: tandem gait normal and Romberg test negative Extrem General: Yes normal exam except as noted and No edema Assessment and Plan Assessment & Plan (1) Encounter for general adult medical examination with abnormal findings: Code(s): Z00.01 - Encounter for general adult medical examination with abnormal findings (2) Alcoholic peripheral neuropathy: Code(s): G62.1 - Alcoholic polyneuropathy (3) Superficial thrombophlebitis of both legs: Code(s): I80.03 - Phlebitis and thrombophlebitis of superficial vessels of lower extremities, bilateral (4) Thrombosis of left saphenous vein: Code(s): I82.812 - Embolism and thrombosis of superficial veins of left lower extremity (5) Recurrent falls: Code(s): R29.6 - Repeated falls (6) LFT elevation: Code(s): R79.89 - Other specified abnormal findings of blood chemistry (7) Thrombocytopenia: Code(s): D69.6 - Thrombocytopenia, unspecified (8) Hypomagnesemia: Code(s): E83.42 - Hypomagnesemia Plan 33 yo male with history of HTN, neuropathy, sensory ataxia w/ recurrent falls, alcoholism, thrombocytopenia, and recent superficial vein (left saphenous vein) thrombosis treated with Eliquis Patient is now seeing hematology for the management Hypercoagulable state workup is in process Alcoholism, long history, LFTs elevated, patient is seeing Gastroenterology Last set of labs were be of this year potassium was 1 point low than normal He is having difficulty working now, 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 so he can stop drinking I have told him that he need to stop completely by next appointment. He is also on blood pressure medication. Gastroenterology appointment coming up 27 of October Orders: Orders Comprehensive Met. Panel Today D69.6 - Thrombocytopenia, unspecified, E83.42 - Hypomagnesemia, E87.6 - Hypokalemia, R79.89 - Other specified abnormal findings of blood chemistry Complete Blood Count Auto Diff Today D69.6 - Thrombocytopenia, unspecified, E83.42 - Hypomagnesemia, E87.6 - Hypokalemia, R79.89 - Other specified abnormal findings of blood chemistry Coding Level of Care Code Est Pt Level 3 (67111) Est Pt Prev Care 18-39y(55702) Diagnoses Encounter for general adult medical examination with abnormal findings Z00.01 Alcoholic peripheral neuropathy G62.1 Superficial thrombophlebitis of both legs I80.03 Thrombosis of left saphenous vein I82.812 Recurrent falls R29.6 LFT elevation R79.89 Thrombocytopenia D69.6 Hypomagnesemia E83.42
== END 2023-09-27 15:50 | disposition home or self-care (01) ==
PROVIDERS: PCP Internal Medicine; Visit Provider Internal Medicine
DX: Z00.01 Encounter for general adult medical examination with abnormal findings (principal); G62.1 Alcoholic polyneuropathy; D69.6 Thrombocytopenia, unspecified; I80.03 Phlebitis and thrombophlebitis of superficial vessels of lower extremities, bilateral; R29.6 Repeated falls; R79.89 Other specified abnormal findings of blood chemistry; E83.42 Hypomagnesemia
CPT/HCPCS: 99213; 99395

== ENCOUNTER 2023-10-20 11:42 | Outpatient (REF) | payer OTHER, SELFPAY ==
[2023-10-20 13:34] LABS: Iron 148 mcg/dL (45-160); Percent Iron Saturation 66 % (15-50); Total Iron Binding Capacity 225 mcg/dL (228-428); Unsaturated Iron Binding 77 ug/dL
[2023-10-20 13:55] LABS: Ferritin 521 ng/mL (20-250)
== END 2023-10-20 11:43 | disposition home or self-care (01) ==
LOC: HO.BBR 11:42
PROVIDERS: PCP Internal Medicine; Visit Provider Internal Medicine Medical Oncology
DX: E83.110 Hereditary hemochromatosis (principal)
CPT/HCPCS: 36415; 82728; 83540

== ENCOUNTER 2023-10-31 16:05 | Outpatient (AMB) | payer OTHER, SELFPAY ==
--- NOTE | 2023-10-31 16:09 | A.OFFVIS_ITS ---
Vital Signs 10/31/23 16:11 Height 6 ft 2 in Weight 216 lb 0.848 oz BMI 27.7 BP 128/81 Blood Pressure Location Lt brachial Position Sitting Pulse 91 Intake Visit Reasons: 4 month follow up Intake Note: Marvel presents in the office as a 4 month follow up. CC: He states his legs have been bothering him real bad and he feels it is due to his blood clots. His stomach has been okay but he states when he eats red meats he notices pains in his stomach afterwards. Wardrobe Consultant Required: No Allergies No Known Allergies Allergy (Verified 10/31/23 16:11) HPI HPI 4 month follow up: Details: LAST VISIT: Alcoholism Transaminitis LLQ abdominal pain Postprandial epigastric pain GERD (gastroesophageal reflux disease) Plan Will recheck patient's liver panel, hepatitis panel, ferritin, transglutaminase. Will rule out autoimmune disorders. Will send patient for ultrasound. At some point patient should go for upper endoscopy to rule out varices. Patient was encouraged to avoid alcohol. High-protein diet discussed with him. Will start patient on Colace. Exam negative for any tenderness or rebound tenderness. He will return in the office in 2 months, sooner on as needed basis. He is agreeable to this plan and verbalizes understanding of instructions. He was given the opportunity to ask questions and all questions answered. ? Thank you for allowing me to participate in his care Orders Orders Liver Panel Today R74.01 Ferritin Today R74.8 HIV Ab/Ag Today R79.89 Transglutaminase IgA Today R10.9 Mitochondrial Antibody Today R79.89 US abdomen comp w elastography Today R79.89 Gamma Glutamyl Transpeptidase Today R74.8 Lipase Today R10.9 C Reactive Protein Today K58.9 Hepatitis A,B,C Profile Today R79.89 Smooth Muscle Antibody Today R79.89 Transglutaminase Ab IgG Today R10.9 Ceruloplasmin Today R79.89 Complete Blood Count no Diff Today K21.9 Prothrombin Time INR Today R74.8 Medications New docusate sodium 100 mg PO DAILY 30 caps 3RF K59.00 TODAY'S VISIT Patient is here today for follow-up and to discuss lab results. Patient's liver enzymes increase. He states that he is not drinking as much as he was before, however he might have been drinking more around the time when the labs were done . Patient states that he is drinking beer and no longer hard liquor right now. Patient reports that his legs are swelling up and he is unable to work. Patient states that he was diagnosed with superficial trouble phlebitis in bilateral extremities. Patient has been seen by Hematology and derik as Neurology. Nerve conduction test done. Workup for hemochromatosis done by Dr. Irene. However b k in July we did workup for hemochromatosis with checking the ferritin and that was normal. Ferritin elevated last month. Patient reports abdominal pain in left lower quadrant. Denies melena, hematochezia, unintentional weight loss or ribbon like stools. Patient denies dyspepsia, dysphagia or odynophagia. [facility] Medical History Neuropathy Sensory ataxia Clavicle fracture Alcohol abuse Foot pain, bilateral Abnormal complete blood count Abnormal liver enzymes No known health problems Surgical History Hx of skin graft Family History Paternal Grandfather Cancer Paternal Grandmother Cancer Social History Household Members: Sp[facility] Alcohol intake: current Alcohol intake frequency: holidays/special occasions only Alcohol type: beer Patient Tobacco Use Status: Former Tobacco user Years Smoked: 10 e-Cigarette/Vaping Use: Currently Using Substance Use Type: Marijuana service: No 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 status: 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 Review of Systems Const Denies weight gain and Denies weight loss ENT Reports no additional complaints, Denies dysphagia and Denies odynophagia Card Reports no additional complaints Resp Reports no additional complaints GI Reports abdominal pain (LLQ), Denies belching, Denies melena, Denies bloating, Denies change in bowel habits, Reports constipation, Denies dysphagia, Denies excessive flatus, Denies dyspepsia, Reports heartburn, Denies diarrhea, Denies loose stools, Denies nausea, Denies odynophagia and Denies vomiting Reports no additional complaints Musc Reports no additional complaints Neuro Reports no additional complaints Psych Reports no additional complaints Endo Reports no additional complaints Physical Exam Vital Signs: Last Vital Signs Pulse 91 10/31/23 16:11 BP 128/81 10/31/23 16:11 BMI result Body Mass Index 27.7 Const General: healthy appearing, no acute distress and well developed Nutritional Appearance: well nourished Orientation/consciousness: patient oriented x3 Resp Effort & Inspection: normal respiratory effort, able to speak in complete sentences, no tracheal deviation and symmetric chest movement Auscultation: clear to auscultation bilaterally Cardio Rate: regular rate GI Inspection: Yes normal to inspection, No distended and Yes obesity Palpation (GI): Soft to palpation, not firm, nontender and No hepatosplenomegaly present Auscultation: normal bowel sounds General: Yes no CVA tenderness Back/Spine/Pelvis Back: no CVA tenderness Skin General skin exam: elasticity normal, turgor normal and dry skin Neuro General: patient oriented x3 Psych Appearance: grossly normal Mental Status: mental status grossly normal Results Reviewed Results Reviewed: Laboratory Tests 07/01/23 07/11/23 10/06/23 13:38 07:17 08:19 Ferritin 744 H Total Bilirubin 2.9 H AST 112 H 184 H ALT 58 H 99 H Alkaline Phosphatase 206 H Anti-Mitochondrial Ab NEGATIVE Anti-Smooth Muscle Ab <20 Tiss Transglutamin IgG <1.0 Hepatitis A IgM Ab Nonreactive Hep Bs Antigen Negative Hep Bs Antibody REACTIVE Hep B Core Total Ab Nonreactive Hepatitis C Ab (EIA) Nonreactive HIV 1&2 Ab/P24 Ag 4thGn Nonreactive ABDOMINAL ULTRASOUND WITH LIVER ELASTOGRAPHY FINDINGS: PANCREAS: The visualized portions of the pancreas are unremarkable but a large portion of the gland is obscured by bowel gas. ABDOMINAL AORTA: The proximal, middle, and distal aortic segments are normal in caliber. INFERIOR VENA CAVA: Visualized portions are normal. LIVER: The liver is enlarged with increased echogenicity, suggesting hepatic steatosis. No focal lesion or intrahepatic biliary duct dilatation. The right lobe measures 19.5 cm in length. The left lobe measures 13.2 cm in length. Portal flow is towards the liver (hepatopetal). Shear wave liver elastography median stiffness is 1.33 m/s (reference: normal median stiffness is 1.3 m/s or less). IQR/median stiffness to assess sampling precision is 0.14 (reference: good quality data set is IQR/median stiffness of 0.15 or less). GALLBLADDER: Multiple mobile gallstones are seen without evidence of cholecystitis. COMMON BILE DUCT: Normal in caliber measuring 0.7 cm in diameter. RIGHT KIDNEY: Normal. No hydronephrosis. No renal calculi or focal parenchymal lesions. The kidney measures 12.0 cm in maximum dimension. LEFT KIDNEY: Normal. No hydronephrosis. No renal calculi or focal parenchymal lesions. The kidney measures 11.3 cm in maximum dimension. SPLEEN: The spleen is enlarged measuring 14.2 cm in maximum dimension. FREE FLUID: None. US/US abdomen comp w elastography IMPRESSION: 1. Enlarged fatty liver. 2. Liver elastography: In the absence of other known clinical signs, measurements rule out compensated advanced chronic liver disease. If there are known clinical signs, further testing may be needed for confirmation. REFERENCE: Society of Radiologists in Ultrasound Liver Stiffness Thresholds (2020): LIVER STIFFNESS THRESHOLDS: *Liver Stiffness equal or less than 1.3 m/s: High probability of being normal. *Liver Stiffness less than 1.7 m/s: In the absence of other known clinical signs, rules out compensated advanced chronic liver disease. *Liver Stiffness 1.7-2.1 m/s: Suggestive of compensated advanced chronic liver disease but need further test for confirmation. *Liver Stiffness over 2.1 m/s: Rules in compensated advanced chronic liver disease. *Liver Stiffness over 2.4 m/s: Suggestive of clinically significant portal hypertension. QUALITY OF DATA SET: *IQR/Median value equal or less than 0.15 implies a quality data set. *IQR/Median value over 0.15 implies a poor quality data set. SIGNIFICANT CHANGE FROM PRIOR EXAM: Significant change if liver stiffness measurement is 10% or greater from prior exam. OTHER CONSIDERATIONS: The stage of liver fibrosis may be overestimated in the setting of acute hepatitis, liver inflammation, elevated liver function tests, hepatic vascular congestion, obstructive cholestasis, non-fasting state, and infiltrative diseases such as amyloidosis and lymphoma. In some patients with NAFLD, the liver stiffness thresholds for compensated advanced chronic liver disease may be lower. In causes other than viral hepatitis and NAFLD, liver stiffness thresholds are not well established. Assessment & Plan Assessment & Plan (1) Alcoholism: Code(s): F10.20 - Alcohol dependence, uncomplicated Category: Medical (2) Transaminitis: Code(s): R74.01 - Elevation of levels of liver transaminase levels Category: Medical (3) LLQ abdominal pain: Code(s): R10.32 - Left lower quadrant pain (4) Postprandial epigastric pain: Code(s): R10.13 - Epigastric pain (5) GERD (gastroesophageal reflux disease): Code(s): K21.9 - Gastro-esophageal reflux disease without esophagitis Qualifiers: Esophagitis presence: esophagitis presence not specified Qualified Code(s): K21.9 - Gastro-esophageal reflux disease without esophagitis (6) Constipation: Code(s): K59.00 - Constipation, unspecified Qualifiers: Constipation type: slow transit constipation Qualified Code(s): K59.01 - Slow transit constipation Plan Patient will continue omeprazole daily. Avoid alcohol. Encouraged patient to go to detox if necessary. Currently he is seen by Dr. Irene for superficial thrombophlebitis of bilateral extremities and has upcoming appointment with vascular surgeon. Patient will start taking senna daily. Increase fluid intake and activity to promote better bowel motility. Avoid dietary triggers and late night snacking. Staying upright for minimum 3 hours after meals discussed with patient. Patient will return in the office in 3 months. We will discuss going for upper endoscopy and maybe colonoscopy depending on patient's bowels status. He is agreeable to this plan and verbalizes understanding of instructions. He was given the opportunity to ask questions and all questions answered. For allowing me to participate in his care Medications: New sennosides (Natural Senna Laxative) 17.2 mg (2 x 8.6 mg) PO BEDTIME 60 tabs 3RF constipation K59.00 - Constipation, unspecified Refilled omeprazole 20 mg PO DAILY 90 caps 3RF Coding Level of Care Code Est Pt Level 4 (12444) Diagnoses Alcoholism F10.20 Transaminitis R74.01 LLQ abdominal pain R10.32 Postprandial epigastric pain R10.13 Gastroesophageal reflux disease, unspecified whether esophagitis present K21.9 Esophagitis presence: esophagitis presence not specified Slow transit constipation K59.01 Constipation type: slow transit constipation Time Spent (min) 35 Comment 20 minutes spent with patient and additional 15 minutes spent reviewing his records
[2023-10-31 16:11] VITALS: BP 128/81; PULSE 91; BMI 27.7
== END 2023-10-31 16:28 | disposition home or self-care (01) ==
PROVIDERS: PCP Internal Medicine; Visit Provider Nurse Practitioner Family
DX: F10.20 Alcohol dependence, uncomplicated (principal); R74.01 Elevation of levels of liver transaminase levels; R10.32 Left lower quadrant pain; R10.13 Epigastric pain; K21.9 Gastro-esophageal reflux disease without esophagitis; K59.01 Slow transit constipation
CPT/HCPCS: 99214

== ENCOUNTER → 2023-10-31 16:05 | Outpatient (BNVA) | payer OTHER, SELFPAY | PROVIDERS: PCP Internal Medicine; Visit Provider Nurse Practitioner Family | DX: K21.9 Gastro-esophageal reflux disease without esophagitis (principal); K59.01 Slow transit constipation; F10.20 Alcohol dependence, uncomplicated; R74.01 Elevation of levels of liver transaminase levels; R10.13 Epigastric pain; R10.32 Left lower quadrant pain | CPT/HCPCS: 99212 ==

== ENCOUNTER 2023-11-27 14:30 | Inpatient (IN) | payer OTHER, SELFPAY ==
--- NOTE | ~2023-11-27 | CT_ITS ---
EXAMINATION: CT HEAD WITHOUT CONTRAST CLINICAL INFORMATION: Fall COMPARISON: None available. TECHNIQUE: Contiguous axial imaging was performed from the skull base to vertex without intravenous administration of contrast. This CT examination was performed using dose optimization techniques as appropriate, variously including the following: *Automated exposure control *Adjustment of mA and/or kV according to patient size (this includes techniques or standardized protocols for targeted exams where dose is matched to indication/reason for exam; i.e. extremities or head) *Use of iterative reconstruction technique DLP: 653 mGy-cm RESULTS: There is no evidence of acute intracranial hemorrhage, acute large vessel infarct, midline shift or mass effect. The marie-white differentiation is preserved. The ventricles and sulci are within normal limits in size and configuration. There is no evidence of hydrocephalus. There are no extraaxial collections. Osseous structures are intact. Paranasal sinuses and mastoid air cells are well aerated. CT/CT head/brain wo IV con IMPRESSION: Unremarkable non-contrast CT of the brain. Electronically signed by: Betzy Bain MD 11/28/2023 08:00 AM EDT
--- NOTE | ~2023-11-27 | MR_ITS ---
EXAMINATION: MR ABDOMEN WITHOUT AND WITH CONTRAST CLINICAL INFORMATION: Liver protocol, liver lesion COMPARISON: CT abdomen and pelvis 11/27/2023 TECHNIQUE: MRI of the abdomen before and after the IV administration of 10 mL of Gadavist was obtained using routine sequences. FINDINGS: LUNG BASES: Trace bilateral pleural effusions and bibasilar atelectasis. KIDNEYS AND URETERS: Unremarkable. GALLBLADDER: Cholelithiasis. Gallbladder is significantly distended with gallbladder wall thickening and edema suspicious for acute cholecystitis. LIVER AND BILIARY TREE: Liver is enlarged measuring 24.7 cm in span. Hepatic contour appears slightly nodular recommend correlation with risk factors for cirrhosis. Marked loss of signal on opposed phase imaging compatible with hepatic steatosis. Previously described low-attenuation adjacent liver lesions corresponds to a focus of focal fat. No intra or extrahepatic biliary duct dilatation and no definite intraluminal filling defect suggest choledocholithiasis though lack of MRCP sequences does limit evaluation. PANCREAS: Increasing peripancreatic fluid and fat stranding suspicious for acute interstitial pancreatitis. No loss of pancreatic parenchymal enhancement to suggest pancreatic necrosis. No pancreatic duct dilatation. A 5.4 cm fluid collection inferior to the body and tail of the pancreas suggesting an acute peripancreatic collection. SPLEEN: The spleen is enlarged measuring 15.9 cm in span. ADRENAL GLANDS: Unremarkable GASTROINTESTINAL TRACT: Loss of the normal haustral markings in the descending colon, which could be seen in the setting of chronic underlying inflammation such as chronic ulcerative colitis. LYMPH NODES: Mildly enlarged gastrohepatic, ernestine hepatic and retroperitoneal lymph node again seen for example a 1.2 cm short axis gastrohepatic node, 12:55. VASCULAR: Paraesophageal varices. ABDOMINAL WALL: Moderate anasarca. OSSEOUS STRUCTURES: Unremarkable. FREE FLUID: MR/MR abdomen wo/w con IMPRESSION: 1. Increasing peripancreatic fluid and fat stranding suspicious for acute interstitial pancreatitis. A 5.4 cm fluid collection inferior to the body and tail of the pancreas suggesting an acute peripancreatic collection. No loss of pancreatic parenchymal enhancement to suggest pancreatic necrosis. 2. Cholelithiasis with a distended gallbladder. There is gallbladder wall thickening and edema, though nonspecific in the setting of underlying liver disease. Constellation of findings raises the possibility of acute cholecystitis, though difficult to say with certainty given the background of underlying liver disease and other inflammatory changes. Recommend correlation with clinical symptoms and this could be with a nuclear medicine HIDA scan if warranted clinically. 3. No intra or extrahepatic biliary duct dilatation and no definite intraluminal filling defect to suggest choledocholithiasis though lack of MRCP sequences does limit evaluation. 4. Hepatomegaly and marked hepatic steatosis. Previously described low-attenuation adjacent liver lesions corresponds to a focus of focal fat. Hepatic contour appears slightly nodular suggestive of cirrhosis with sequelae of portal hypertension including splenomegaly and periesophageal varices. 5. Loss of the normal haustral markings in the descending colon, which could be seen in the setting of chronic underlying inflammation such as chronic ulcerative colitis. 6. Mildly enlarged gastrohepatic, ernestine hepatic and retroperitoneal lymph nodes again seen, possibly reactive. 7. Trace bilateral pleural effusions, small volume ascites and moderate anasarca. The findings and recommendations were discussed with Dr. Hall by telephone at 11/30/2023 6:00 PM EST and it was ascertained that the content and urgency of the report was understood at the time of direct communication. Electronically signed by: Georgia Du MD 11/30/2023 06:04 PM EDT
--- NOTE | ~2023-11-27 | NM_ITS ---
EXAMINATION: BILIARY TRACT IMAGING STUDY WITH CCK CLINICAL INFORMATION: Abdominal pain. Abnormal MRI.. COMPARISON: MRI of the abdomen done on 11/29/2023.. TECHNIQUE: Serial gamma scintillation camera images were obtained over the abdomen for a total observation period of 60 minutes following the intravenous administration of 5.0 mCi Tc-99m mebrofenin. FINDINGS: There is persistent blood pool activity identified with slightly delayed hepatic tracer uptake suggestive of impaired liver function. Biliary activity is visualized by 15 minutes. The gallbladder is well visualized by 30 minutes. Small bowel is well visualized by 22 minutes. At 60 minutes post radiopharmaceutical injection, a 30-minute infusion of 2.0 micrograms Sincalide was then begun and an additional 40 minutes of images were obtained. There is poor emptying of the gallbladder. By the end of the study there is good clearance of activity from the liver and visualization of diffuse small bowel activity. The calculated gallbladder ejection fraction is 15% (Normal range of gallbladder ejection fraction is between 35-80%; GBEF <35% is considered biliary hypokinesia and >80% is considered biliary hyperkinesia; Ref. #1-Clinical Journal of Gastroenterology (2020) 14:7328-5619; Ref.#2-[email or web address]). NM/NM hepatobiliary w pharm IMPRESSION: Visualization of the gallbladder is evidence of a patent cystic duct and strong evidence against the diagnosis of acute cholecystitis. The common bile duct is patent. Gallbladder emptying and ejection fraction are abnormal. Impaired liver function. Electronically signed by: Milo Bullock MD 12/02/2023 03:18 PM EDT
--- NOTE | ~2023-11-27 | CT_ITS ---
EXAMINATION: CT ABDOMEN AND PELVIS WITH CONTRAST CLINICAL INFORMATION: Abdominal pain, jaundice and nausea. COMPARISON: Abdominal ultrasound dated 07/19/2023; CTA abdomen and pelvis dated 06/14/2023. TECHNIQUE: Multidetector volumetric images were obtained from the superior aspect of the liver through the pubic symphysis following administration 85 mL of Omnipaque 350 intravenous contrast. Sagittal and coronal reformatted images were obtained on the technologist's workstation. Oral contrast: No This CT examination was performed using dose optimization techniques as appropriate, variously including the following: *Automated exposure control *Adjustment of mA and/or kV according to patient size (this includes techniques or standardized protocols for targeted exams where dose is matched to indication/reason for exam; i.e. extremities or head) *Use of iterative reconstruction technique DLP: 735 mGy-cm FINDINGS: LUNG BASES: There is moderately severe posterolateral bibasilar linear scar/subsegmental atelectasis, without associated focal airway obstruction. LIVER, GALLBLADDER, AND BILIARY TREE: The liver is normal in size, shape and generally diminished in attenuation. Within the right hepatic lobe (3:26 and 29), there are adjacent 1.3 cm and 1.2 cm low-attenuation lesions, which are new from the comparison examinations. No biliary ductal dilatation is present. The gallbladder is mildly hydropic but shows no evidence of radiopaque gallstones, gallbladder wall thickening, or obvious pericholecystic inflammatory changes. PANCREAS: Unremarkable. SPLEEN: There is splenomegaly, with a longitudinal span of 15.7 cm. No focal finding. ADRENAL GLANDS: Unremarkable. KIDNEYS AND URETERS: The kidneys are normal in size, shape, and attenuation. No hydronephrosis, hydroureter, or calculi seen. There is mild nonspecific bilateral perinephric stranding. BLADDER: Decompressed and otherwise unremarkable. GASTROINTESTINAL TRACT: There is duodenal wall thickening (i.e. 3:44 and 6:41). The remaining small and large bowel are unremarkable. No obstruction, free intraperitoneal air or abscess is seen. No significant diverticulosis or diverticulitis is seen. The vermiform appendix is unremarkable. ABDOMINAL WALL: There is a small fat-containing umbilical hernia. There is mild anasarca in the posterior back (3:65). LYMPH NODES: There are multiple enlarged periportal and celiac axis lymph nodes. One of the largest of these measures 2.1 x 1.2 cm (3:33). A dominant portacaval lymph node is seen, measuring 2.0 x 1.4 cm (3:37). A dominant aortocaval lymph node is seen, measuring 3.4 x 1.6 mm (6:45 and 3:46). There are several shotty para-aortic lymph nodes. Overall, these lymph nodes are similar in appearance to 06/14/2023. VASCULAR: Unremarkable. PELVIC VISCERA: The prostate and seminal vesicles are unremarkable. OSSEOUS STRUCTURES: There is mild degenerative disc disease L4-5 and L5-S1. No acute or aggressive osseous finding is noted. FREE FLUID: There is trace free fluid layering along the bilateral anterior pararenal fascia and lateral conal fascial layers. CT/CT abdomen pelvis w IV con IMPRESSION: 1. There is diffuse hepatic steatosis. There are 2 adjacent small low-attenuation lesions newly seen within the right hepatic lobe. Given the presentation with jaundice, consider further evaluation with MRI. 2. The gallbladder is somewhat hydropic, without calculus or common bile duct or intrahepatic ductal dilatation noted. 3. There is wall thickening of the duodenum, which can be seen in the setting of duodenitis. Please correlate clinically. 3. There are stable enlarged periportal, celiac axis, portacaval, aortocaval and para-aortic lymph nodes. These are nonspecific and should be managed on a clinical basis. Continued imaging follow-up may be warranted. 4. There is splenomegaly. 5. There is trace abdominal pelvic free fluid. Mild anasarca is seen. 6. There is mild degenerative disc disease at L4-5 and L5-S1. No aggressive osseous finding is seen. Fleischner guidelines were followed. Electronically signed by: Momo Layne MD 11/27/2023 11:19 PM EDT Workstation: -WS
[2023-11-27 15:27] VITALS: BP 114/73; PULSE 78; RESP 18; TEMP 36.8; O2SAT 97; BMI 28.7
--- NOTE | 2023-11-27 15:28 | ED_ITS ---
HPI - General Adult General Chief complaint: General Medical Stated complaint: eyes and skin yellow Time Seen by Provider: 11/27/23 20:44 Source: patient Mode of arrival: ambulatory Limitations: no limitations History of Present Illness ED Provider: Rahel Zelaya PA-C HPI narrative: Patient is a 33 year old assigned male at with a history of elevated LFTs and alcohol abuse presenting to the emergency department today with concerns over being yellow. Patient states that he is a daily drinker of 10+ vodka drinks per day and today his Fiance informed him that he was yellow so he came to the hospital. Patient states that he has intermittent abdominal pain, chronically. Patient denies any dizziness, lightheadedness, nausea, vomiting, fever, chills, blurry vision, double vision, loss of vision, chest pain, difficulty breathing, shortness of breath, back pain, night sweats, pain with urination, increased urinary frequency, increased urinary urgency, blood in his urine or stool, syncope or a near syncopal episode, recent trauma or falls, bowel incontinence, bladder incontinence, or any other complaints at this time. Relieving factors: none Exacerbating factors: none Associated symptoms: denies other symptoms Treatments prior to arrival: none Related Data Home Medications ?Medication ?Instructions ?Recorded ?Confirmed buprenorphine 2 mg-naloxone 0.5 mg 1 film sublingual DAILY 12/31/21 10/06/23 sublingual film Previous Rx's ?Medication ?Instructions ?Recorded gabapentin 100 mg capsule 100 mg PO BID 30 days #60 caps 08/23/23 atenolol 25 mg tablet 25 mg PO DAILY #90 tabs 09/02/23 lorazepam 1 mg tablet 1 mg PO TID PRN anxiety 30 days 10/29/23 #90 tabs omeprazole 20 mg capsule,delayed 20 mg PO DAILY #90 caps 10/31/23 release sennosides 8.6 mg tablet (Natural 17.2 mg (2 x 8.6 mg) PO BEDTIME 10/31/23 Senna Laxative) constipation #60 tabs apixaban 5 mg tablet (Eliquis) 5 mg PO BID #60 tabs 11/21/23 Allergies Allergy/AdvReac Type Severity Reaction Status Date / Time No Known Allergies Allergy Verified 11/27/23 15:29 Review of Systems 2 Constitutional: Constitutional: Reports no additional constitutional complaints, Denies chills, Denies fever(s) and Denies night sweats Eyes: Eyes: Reports no additional eye complaints, Denies blurry vision, Denies change in vision, Denies diplopia, Denies eye discharge, Denies loss of vision and Denies eye pain ENT: Denies dizziness Cardiovascular: Cardiovascular: Reports no additional cardiovascular complaints, Denies chest pain, Denies lightheadedness, Denies Loss of Consciousness and Denies dyspnea Respiratory: Respiratory: Reports no additional respiratory complaints and Denies dyspnea Gastrointestinal: Gastrointestinal: Reports no additional gastrointestinal complaints, Reports abdominal pain, Denies melena, Denies hematochezia, Denies change in bowel habits and Denies change in stool character Genitourinary: Genitourinary: Reports no additional male genitourinary complaints, Denies hematuria, Denies oliguria, Denies difficulty urinating, Denies dysuria, Denies urinary frequency, Denies urinary hesitancy, Denies urinary incontinence and Denies urinary urgency Musculoskeletal: Musculoskeletal: Reports no additional musculoskeletal complaints, Denies numbness and Denies tingling Integumentary/Breasts: Skin/Breast: Reports jaundice Neurologic: Denies dizziness, Denies loss of vision, Denies numbness and Denies tingling Psychiatric: Psychiatric: Reports no additional psychiatric complaints Endocrine: Endocrine: Reports no additional endocrine complaints Hematologic/Lymphatic: Hematologic/Lymphatic: Reports no additional hematologic/lymphatic complaints Allergic/Immunologic: Allergic/Immunologic: Reports no additional allergic/immunologic complaints [facility] Past Medical History Attestation statement: The following information was validated with the patient. Source: old records reviewed and nursing notes reviewed Medical History Neuropathy Sensory ataxia Clavicle fracture Alcohol abuse Foot pain, bilateral Abnormal complete blood count Abnormal liver enzymes No known health problems Surgical History Hx of skin graft Family History Family History Paternal Grandfather Cancer Paternal Grandmother Cancer Social History Social History Household Members: Spouse Housing: [facility] Alcohol intake: current Alcohol intake frequency: 3 or more drinks per day Alcohol type: hard liquor Patient Tobacco Use Status: Former Tobacco user Years Smoked: 10 Smoked in Last 30 Days: Yes e-Cigarette/Vaping Use: Currently Using Use of substances other than those prescribed or required for medical reasons: No Substance Use Type: Marijuana Advance Directives: No Advance Directives Information Provided: No Do you have a plan to hurt others: No Plan service: No 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 status: 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 Physical Exam ED Vital Signs: Vital Signs - 24 hr 11/27/23 15:27 11/27/23 20:01 Temperature 98.2 F 98.7 F Pulse Rate 78 83 Respiratory Rate 18 16 Blood Pressure 114/73 126/85 Pulse Oximetry 97 97 Oxygen Delivery Method Room Air Room Air BMI result Body Mass Index 28.7 Const General: cooperative, no acute distress, alert and awake Nutritional Appearance: well nourished Orientation/consciousness: patient oriented x3 Limitations: no limitations HENMT Head: Yes normal to inspection and Yes atraumatic Ears: hearing grossly normal bilaterally and external ears normal General nose exam: Normal external nose present, no nasal discharge noted and no epistaxis Face and sinus: Yes normal facial exam, No abrasion and No laceration Mouth: Normal oral and palatal mucosa present, no drooling and no muffled voice Eyes Other: yellowing of whites of eyes Periorbital: periorbital findings normal Eyelids: Yes eyelids normal Pupils: Equal, round and reactive pupils present EOM: EOMs intact bilaterally Neck Neck: Yes normal visual inspection, Yes full ROM and Yes no lymphadenopathy Chest Chest palpation & inspection: normal inspection of the chest Resp Effort & Inspection: normal respiratory effort and able to speak in complete sentences GI Inspection: Yes normal to inspection Skin Other: jaundiced Neuro General: patient oriented x3 and moves all extremities Cranial nerves: Yes Equal, round and reactive pupils present Cognition (Neuro): normal cognition Extrem General: Yes normal to inspection, Yes full ROM and Yes capillary refill normal Psych Appearance: grossly normal Mental Status: mental status grossly normal Affect: normal affect Attitude: cooperative Thought process: Normal thought process present Thought content: Normal thought content present Insight: Good insight present (Psych) Course Course Course Narrative: This is a Rapid Medical Exam performed in triage by Marylu Keenan PA-C. Full HPI, ROS and PE to be performed by primary ED provider. 33 yo M w/PMHx DVT on Eliquis, ETOH abuse presenting to the ED c/o yellow eyes x1 week and yellow skin x today. Admits to drinking about 10 drinks of Vodka daily, denies hx ETOH withdrawal. denies tylenol use or travel. Last drink last night around 1130PM PE: + jaundice, scleral icterus, abdomen soft diffusely tender Plan: EKG, labs, UA, CT AP Medications Administered Discontinued Medications Generic Name Dose Route Start Last Admin Trade Name Pamela PRN Reason Stop Dose Admin Lactated Ringer's 1,000 mls @ 999 mls/hr 11/28/23 00:45 11/28/23 01:53 Lr IV 11/28/23 01:45 999 mls/hr .Q1H1M BERT Administration Iohexol 100 ml 11/27/23 21:02 11/27/23 21:02 Iohexol 350 Mg/Ml 100 Ml Infus..Btl IV 11/27/23 21:03 85 ml ONCE ONE Administration Lactulose 30 gm 11/27/23 23:42 11/28/23 01:47 Lactulose 20 Gm/30 Ml Solution PO 11/27/23 23:43 30 gm ONCE ONE Administration Phenobarbital Sodium 328 mg 11/28/23 01:00 11/28/23 01:49 Phenobarbital Sodium 130 Mg/Ml Vial IM 11/28/23 01:01 328 mg STAT STA Administration Medical Decision Making Medical Decision Making [facility] Narrative: Patient is a 33 year old assigned male at with a history of elevated LFTs and alcohol abuse presenting to the emergency department today with intermittent abdominal pain and new yellowing of his eyes and skin. Patient's physical exam showed a jaundiced individual. Patient's blood work showed markedly elevated LFTs when compared to his previous as well as an elevated ammonia for which the patient was given lactulose. Patient's urine showed a possible infection however the patient has no complaints, will await culture to start treatment. Patient's EKG was unremarkable. Patient's CT abdomen/pelvis showed 2 new lesions of the liver as well as possible duodenitis. GI was consulted. I spoke to the hospitalist team who agreed to admission. I explained my physical exam findings as well as all test results to the patient. I answered all questions asked by the patient. Patient verbalized agreement and understanding with this treatment plan and admission. Differential Diagnosis Differential Diagnoses: The differential diagnosis associated with the presentation includes Severe alcoholic hepatitis Liver failure Elevated LFTs Admission/Observation Consideration of admission/observation: Escalation of care including admission/observation considered Patient admitted. Consult Healthcare Provider Management of the patient was discussed with: Hospitalist (agreed to admission as noted in the MDM Rationale portion of this note.) and Valve And Regulator Repairer (spoke to GI who gave recommendations that were forwarded to the admitting team.) Lab Data [facility] Lab Attestation statement: I reviewed the patient's lab results. My interpretation of these results are in the MDM Rationale portion of this note. 11/27/23 16:12 11/27/23 16:12 Labs: Lab Results 11/27/23 11/27/23 Range/Units 16:12 20:04 WBC 6.8 (4.8-10.8) X10*3/uL RBC 4.09 L (4.60-5.80) X10*6/uL Hgb 14.6 (14.0-18.0) g/dl Hct 39.7 L (42.0-52.0) % MCV 97.1 (80.0-98.0) fL MCH 35.7 H (27.0-33.0) pg MCHC 36.8 H (31.0-36.0) g/dl RDW 14.6 (11.0-16.0) % Plt Count 92 L (160-400) X10*3/uL MPV 12.1 (9.4-12.4) fL Immature Gran % (Auto) 0.4 (0.0-0.4) % Neut % (Auto) 78.8 H (45-73) % Lymph % (Auto) 8.8 L (20-40) % [place] % (Auto) 10.6 (2-11) % Eos % (Auto) 1.0 (0-4) % Baso % (Auto) 0.4 (0-2) % Lymph # (Auto) 0.6 L (1.2-4.9) X10*3/uL [place] # (Auto) 0.7 (0.1-1.2) X10*3/uL Eos # (Auto) 0.1 (0.0-0.4) X10*3/uL Baso # (Auto) 0.0 (0.0-0.2) X10*3/uL Abs Immat Gran (auto) 0.03 (0.00-0.03) X10*3/uL Absolute Neuts (auto) 5.4 (2.0-8.3) x10*3/uL Absolute Nucleated RBC 0.000 (0.0-0.012) X10*3/uL Nucleated RBC % (auto) 0.0 (0.0-0.2) /100WBC PT 29.8 H D (11.1-13.3) SEC INR 2.4 H (0.9-1.1) Sodium 137 (135-145) mmol/L Potassium 3.5 (3.3-5.1) mmol/L Chloride 96 (96-108) mmol/L Carbon Dioxide 30 H (22-29) mmol/L Anion Gap 15 (12-20) BUN 6 L (9-16) mg/dL Creatinine 0.66 (0.5-1.4) mg/dL Estim Creat Clear Calc 202.2 Estimated GFR > 60 Random Glucose 138 H (60-115) mg/dL Calcium 8.8 (8.4-10.2) mg/dL Magnesium 1.5 L (1.6-2.6) mg/dL Total Bilirubin 24.7 H (0.0-1.0) mg/dL Direct Bilirubin 16.4 H (0.0-0.5) mg/dL AST 390 H (5-37) U/L ALT 139 H (0-40) U/L Alkaline Phosphatase 290 H (39-117) U/L Ammonia 108 H (13-55) umol/L Total Protein 5.7 L (6.5-8.0) g/dL Albumin 3.2 L (3.5-5.0) g/dL Lipase 45 (8-78) U/L Urine Color Metcalfe A Urine Appearance Cloudy Urine pH 5.5 (5.0-9.0) Ur Specific Brady >= 1.030 H (1.005-1.025) Urine Protein 30 (1+) H (Neg-Trace) mg/dL Urine Glucose (UA) Negative (Negative) mg/dL Urine Ketones Negative (Negative) mg/dL Urine Blood Negative (Negative) Urine Nitrite Positive H (Negative) Ur Leukocyte Esterase Moderate (2+) H (Negative) Urine RBC 0-2 (0-2) /HPF Urine WBC 6-10 H (0-5) /HPF Ur Squamous Epith Cells 11-20 (0-2) /HPF Urine Bacteria 1+ (None Seen) Hyaline Casts 0-2 (0-2) /LPF Acetaminophen < 3 (<30) mcg/mL Ethyl Alcohol < 10 mg/dL Independent Interpretation I performed an independent interpretation of an: EKG and CT Scan Interpretation: My interpretation is in agreement with the radiologist's impression of this imaging study. - EXAMINATION: CT ABDOMEN AND PELVIS WITH CONTRAST CLINICAL INFORMATION: Abdominal pain, jaundice and nausea. COMPARISON: Abdominal ultrasound dated 07/19/2023; CTA abdomen and pelvis dated 06/14/2023. TECHNIQUE: Multidetector volumetric images were obtained from the superior aspect of the liver through the pubic symphysis following administration 85 mL of Omnipaque 350 intravenous contrast. Sagittal and coronal reformatted images were obtained on the technologist's workstation. Oral contrast: No This CT examination was performed using dose optimization techniques as appropriate, variously including the following: *Automated exposure control *Adjustment of mA and/or kV according to patient size (this includes techniques or standardized protocols for targeted exams where dose is matched to indication/reason for exam; i.e. extremities or head) *Use of iterative reconstruction technique DLP: 735 mGy-cm FINDINGS: LUNG BASES: There is moderately severe posterolateral bibasilar linear scar/subsegmental atelectasis, without associated focal airway obstruction. LIVER, GALLBLADDER, AND BILIARY TREE: The liver is normal in size, shape and generally diminished in attenuation. Within the right hepatic lobe (3:26 and 29), there are adjacent 1.3 cm and 1.2 cm low-attenuation lesions, which are new from the comparison examinations. No biliary ductal dilatation is present. The gallbladder is mildly hydropic but shows no evidence of radiopaque gallstones, gallbladder wall thickening, or obvious pericholecystic inflammatory changes. PANCREAS: Unremarkable. SPLEEN: There is splenomegaly, with a longitudinal span of 15.7 cm. No focal finding. ADRENAL GLANDS: Unremarkable. KIDNEYS AND URETERS: The kidneys are normal in size, shape, and attenuation. No hydronephrosis, hydroureter, or calculi seen. There is mild nonspecific bilateral perinephric stranding. BLADDER: Decompressed and otherwise unremarkable. GASTROINTESTINAL TRACT: There is duodenal wall thickening (i.e. 3:44 and 6:41). The remaining small and large bowel are unremarkable. No obstruction, free intraperitoneal air or abscess is seen. No significant diverticulosis or diverticulitis is seen. The vermiform appendix is unremarkable. ABDOMINAL WALL: There is a small fat-containing umbilical hernia. There is mild anasarca in the posterior back (3:65). LYMPH NODES: There are multiple enlarged periportal and celiac axis lymph nodes. One of the largest of these measures 2.1 x 1.2 cm (3:33). A dominant portacaval lymph node is seen, measuring 2.0 x 1.4 cm (3:37). A dominant aortocaval lymph node is seen, measuring 3.4 x 1.6 mm (6:45 and 3:46). There are several shotty para-aortic lymph nodes. Overall, these lymph nodes are similar in appearance to 06/14/2023. VASCULAR: Unremarkable. PELVIC VISCERA: The prostate and seminal vesicles are unremarkable. OSSEOUS STRUCTURES: There is mild degenerative disc disease L4-5 and L5-S1. No acute or aggressive osseous finding is noted. FREE FLUID: There is trace free fluid layering along the bilateral anterior pararenal fascia and lateral conal fascial layers. CT/CT abdomen pelvis w IV con IMPRESSION: 1. There is diffuse hepatic steatosis. There are 2 adjacent small low-attenuation lesions newly seen within the right hepatic lobe. Given the presentation with jaundice, consider further evaluation with MRI. 2. The gallbladder is somewhat hydropic, without calculus or common bile duct or intrahepatic ductal dilatation noted. 3. There is wall thickening of the duodenum, which can be seen in the setting of duodenitis. Please correlate clinically. 3. There are stable enlarged periportal, celiac axis, portacaval, aortocaval and para-aortic lymph nodes. These are nonspecific and should be managed on a clinical basis. Continued imaging follow-up may be warranted. 4. There is splenomegaly. 5. There is trace abdominal pelvic free fluid. Mild anasarca is seen. 6. There is mild degenerative disc disease at L4-5 and L5-S1. No aggressive osseous finding is seen. Fleischner guidelines were followed. Electronically signed by: Momo Layne MD 11/27/2023 11:19 PM EDT Dictated By: Momo Layne MD Signed By: Electronically signed by Momo Layne MD 11/27/23 2319 - Vent. Rate: 069 BPM Atrial Rate: 069 BPM P-R Int: 176 ms QRS Dur: 086 ms QT Int: 446 ms P-R-T Axes: -23 -04 010 degrees QTc Int: 477 ms Normal sinus rhythm Normal ECG When compared with ECG of 16-JAN-2022 13:17, T wave inversion now evident in Anterior leads DD/ [id number] Radiology Impression Discussion of test interpretation with radiology: I have reviewed the radiologist's reading. Critical Care Time Critical Care Time Critical Care Time: Yes Total Critical Care Time: 67 Attestation: I spent 67 minutes of Critical Care Time with this patient. This does not include time spent on separately reported billable procedures. Discharge Plan Discharge Clinical Impression: Acute alcoholic liver disease Patient Disposition: Admitted As Inpatient
--- NOTE | 2023-11-27 15:30 | ECG_ITS ---
Test Reason : JAUNDICE Blood Pressure : / mmHG Vent. Rate : 069 BPM Atrial Rate : 069 BPM P-R Int : 176 ms QRS Dur : 086 ms QT Int : 446 ms P-R-T Axes : -23 -04 010 degrees QTc Int : 477 ms Normal sinus rhythm Normal ECG When compared with ECG of 16-JAN-2022 13:17, T wave inversion now evident in Anterior leads Referred By: Marylu Keenan Electronically Signed By:DENISE CABRAL
[2023-11-27 16:18] LABS: MANUAL DIFF FLAG NO
[2023-11-27 16:27] LABS: Basophils Percent Auto 0.4 % (0-2); Eosinophils Absolute Auto 0.1 X10*3/uL (0.0-0.4); Hematocrit 39.7 % (42.0-52.0); Hemoglobin 14.6 g/dl (14.0-18.0); Imm Gran Abs Auto 0.03 X10*3/uL (0.00-0.03); Imm Gran Pct Auto 0.4 % (0.0-0.4); Lymphocytes Absolute Auto 0.6 X10*3/uL (1.2-4.9); Lymphocytes Percent Auto 8.8 % (20-40); Mean Corpuscular HGB Conc 36.8 g/dl (31.0-36.0); Mean Corpuscular Hemoglobin 35.7 pg (27.0-33.0); Mean Corpuscular Volume 97.1 fL (80.0-98.0); Mean Platelet Volume 12.1 fL (9.4-12.4); Monocytes Absolute Auto 0.7 X10*3/uL (0.1-1.2); Monocytes Percent Auto 10.6 % (2-11); Neutrophils Absolute Auto 5.4 x10*3/uL (2.0-8.3); Neutrophils Percent Auto 78.8 % (45-73); Red Blood Count 4.09 X10*6/uL (4.60-5.80); Red Cell Distribution Width 14.6 % (11.0-16.0); White Blood Count 6.8 X10*3/uL (4.8-10.8)
[2023-11-27 16:29] LABS: INTERNATIONAL NORM RATIO 2.4 (0.9-1.1); Prothrombin Time 29.8 SEC (11.1-13.3)
[2023-11-27 16:37] LABS: Ammonia 108 umol/L (13-55)
[2023-11-27 16:41] LABS: Acetaminophen LAB < 3 mcg/mL (<30)
[2023-11-27 16:46] LABS: Alanine Aminotransferase 139 U/L (0-40); Albumin Level 3.2 g/dL (3.5-5.0); Alkaline Phosphatase 290 U/L (39-117); Anion Gap 15 (12-20); Aspartate Amino Transferase 390 U/L (5-37); Bilirubin Total 24.7 mg/dL (0.0-1.0); Blood Urea Nitrogen 6 mg/dL (9-16); Calcium 8.8 mg/dL (8.4-10.2); Carbon Dioxide 30 mmol/L (22-29); Chloride 96 mmol/L (96-108); Creatinine Clr Calc Pharmacy 202.2; Estimated Glomerular Filt Rate > 60; Ethanol < 10 mg/dL; Glucose Random 138 mg/dL (60-115); Lipase 45 U/L (8-78); Magnesium 1.5 mg/dL (1.6-2.6); Potassium 3.5 mmol/L (3.3-5.1); Sodium 137 mmol/L (135-145); Total Protein 5.7 g/dL (6.5-8.0)
[2023-11-27 16:52] LABS: Platelet Count 92 X10*3/uL (160-400)
[2023-11-27 17:02] LABS: Bilirubin Direct 16.4 mg/dL (0.0-0.5)
[2023-11-27 20:01] VITALS: BP 126/85; PULSE 83; RESP 16; TEMP 37.1; O2SAT 97
--- NOTE | 2023-11-27 20:04 | PC.NURSE ---
pt changed over by security - belongings placed in C5. belongings list created/placed in pt's chart. urine obtained/sent to lab.
--- NOTE | 2023-11-27 20:06 | MHC.EDTECH ---
This pct just assumed care of patient ,Patient was change into hospital attire ,All patient belonging are locked up in [address] closet c 5 ,Vitals taken ,All safety measure in place .Fresh ice water given .
[2023-11-27 20:13] LABS: Appearance Urine Cloudy; Color Urine Orange; Glucose Urine UA Negative (Negative); Leukocyte Esterase Urine Moderate (2+) (Negative); Nitrite Urine Positive (Negative); PH 5.5 (5.0-9.0); Specific Gravity - Urine >= 1.030 (1.005-1.025); UMIC TRIGGER UACC YES; Urine Blood Negative (Negative); Urine Ketones Negative (Negative); Urine Protein 30 (1+) mg/dL (Neg-Trace)
[2023-11-27 20:29] LABS: Bacteria Urine 1+ (None Seen); Hyaline Casts Urine 0-2 /LPF (0-2); RBC Urine 0-2 /HPF (0-2); UACC Culture Trigger YES
--- NOTE | 2023-11-27 20:29 | PC.NURSE ---
20gIV placed in the left forearm - patent/intact. pt waiting to go to CT at this time. resting comfortably in no apparent distress. no sob/wob noted. respirations even/unlabored. plan of care ongoing. call mallory placed within reach.
--- NOTE | 2023-11-27 20:56 | PC.NURSE ---
pt to CT at this time.
[2023-11-27] MEDS: iohexoL 350 MG/ML 100 ML INFUS..BTL IV (21:02)
--- NOTE | 2023-11-28 00:27 | PM.IMHP ---
History of Present Illness Date of Service: 11/28/23 Chief Complaint: Jaundice This is a 33-year-old male with pertinent history of alcohol use disorder, history of DVT on Eliquis, mood disorder, peripheral neuropathy, gastroesophageal reflux disease who presents to the emergency department for evaluation of yellowing of eyes. Patient states his family members 1st noticed yellowish discoloration of skin denies 1 week ago. It was worse on the day of presentation and hence the patient decided come to the ER. Patient does have peripheral neuropathy and states he missed a step on the day of presentation and fell. Did not lose consciousness prior to the fall. No rhythmic jerking movement of extremities. No chest pain or palpitations prior to the fall. Unsure if he hit his head. Also reports dark colored urine with urinary hesitancy and change in odor. Patient admits to drinking about 10 drinks vodka every day in his last drink was on the day of presentation. No history of alcohol withdrawal or alcohol withdrawal seizures in the past. Does endorse right-sided abdominal discomfort. No hematemesis, melena or hematochezia. No fever, chills, shortness of breath, changes in bowel habits. In the emergency department, total bilirubin found to be 24.7 and ammonia level was 108. Review of Systems Constitutional: Constitutional: Reports fatigue, Reports malaise, Reports poor appetite and Reports weakness Cardiovascular: Cardiovascular: Reports no additional cardiovascular complaints Respiratory: Respiratory: Reports no additional respiratory complaints Gastrointestinal: Gastrointestinal: Reports abdominal pain Genitourinary: Genitourinary: Reports oliguria and Reports urinary hesitancy Neurologic: Reports weakness Endocrine: Endocrine: Reports fatigue [facility] Medical History Neuropathy Sensory ataxia Clavicle fracture Alcohol abuse Foot pain, bilateral Abnormal complete blood count Abnormal liver enzymes No known health problems Family History Paternal Grandfather Cancer Paternal Grandmother Cancer Surgical History Hx of skin graft Social History Household Members: Spouse 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 Meds Allergies Allergy/AdvReac Type Severity Reaction Status Date / Time No Known Allergies Allergy Verified 11/27/23 15:29 Home Medications ?Medication ?Instructions ?Recorded ?Confirmed ?Last Taken ?Type buprenorphine 2 mg-naloxone 0.5 mg 1 film sublingual DAILY 12/31/21 10/06/23 01/16/22 History sublingual film Physical Exam Vital Signs and Narrative: Vital Signs: Last Vital Signs Temp 98.7 F 11/27/23 20:01 Pulse 83 11/27/23 20:01 Resp 16 11/27/23 20:01 BP 126/85 11/27/23 20:01 Pulse Ox 97 11/27/23 20:01 O2 Del Method Room Air 11/27/23 20:01 BMI result Body Mass Index 28.7 Middle-aged male lying in bed in no distress Neck supple, no JVD, scleral icterus present Regular rate and rhythm, S1-S2 heard Regular breath sounds bilaterally, no wheezing or crackles appreciated Abdomen with generalized mild tenderness, no guarding, no rigidity, no rebound tenderness Patient is awake, alert and oriented to self, place, time and person ; no focal motor deficit Psych: Normal mood No pedal edema Results Labs 11/27/23 16:12 11/27/23 16:12 Labs: Laboratory Results - last 24 hr 11/27/23 11/27/23 16:12 20:04 MCV 97.1 MCH 35.7 H MCHC 36.8 H RDW 14.6 Plt Count 92 L MPV 12.1 Immature Gran % (Auto) 0.4 Neut % (Auto) 78.8 H Lymph % (Auto) 8.8 L [place] % (Auto) 10.6 Eos % (Auto) 1.0 Baso % (Auto) 0.4 Lymph # (Auto) 0.6 L [place] # (Auto) 0.7 Eos # (Auto) 0.1 Baso # (Auto) 0.0 Abs Immat Gran (auto) 0.03 Absolute Neuts (auto) 5.4 Absolute Nucleated RBC 0.000 Nucleated RBC % (auto) 0.0 PT 29.8 H D INR 2.4 H Anion Gap 15 Estim Creat Clear Calc 202.2 Estimated GFR > 60 Random Glucose 138 H Calcium 8.8 Magnesium 1.5 L Total Bilirubin 24.7 H Direct Bilirubin 16.4 H AST 390 H ALT 139 H Alkaline Phosphatase 290 H Ammonia 108 H Total Protein 5.7 L Albumin 3.2 L Lipase 45 Urine Color [place] A Urine Appearance Cloudy Urine pH 5.5 Ur Specific [place] >= 1.030 H Urine Protein 30 (1+) H Urine Glucose (UA) Negative Urine Ketones Negative Urine Blood Negative Urine Nitrite Positive H Ur Leukocyte Esterase Moderate (2+) H Urine RBC 0-2 Urine WBC 6-10 H Ur Squamous Epith Cells 11-20 Urine Bacteria 1+ Hyaline Casts 0-2 Acetaminophen < 3 Ethyl Alcohol < 10 Imaging Radiologist's Impressions: Impressions Abdomen/Pelvis CT 11/27/23 20:53 IMPRESSION: 1. There is diffuse hepatic steatosis. There are 2 adjacent small low-attenuation lesions newly seen within the right hepatic lobe. Given the presentation with jaundice, consider further evaluation with MRI. 2. The gallbladder is somewhat hydropic, without calculus or common bile duct or intrahepatic ductal dilatation noted. 3. There is wall thickening of the duodenum, which can be seen in the setting of duodenitis. Please correlate clinically. 3. There are stable enlarged periportal, celiac axis, portacaval, aortocaval and para-aortic lymph nodes. These are nonspecific and should be managed on a clinical basis. Continued imaging follow-up may be warranted. 4. There is splenomegaly. 5. There is trace abdominal pelvic free fluid. Mild anasarca is seen. 6. There is mild degenerative disc disease at L4-5 and L5-S1. No aggressive osseous finding is seen. Fleischner guidelines were followed. Electronically signed by: Momo Layne MD 11/27/2023 11:19 PM EDT Assessment and Plan (1) Alcoholic hepatitis: Status: Acute (2) Liver injury: Status: Acute (3) Conjugated hyperbilirubinemia: Status: Acute (4) Hyperammonemia: Status: Acute Plan This is a 33-year-old male with pertinent history of alcohol use disorder, history of DVT on Eliquis, mood disorder, peripheral neuropathy, gastroesophageal reflux disease who presents to the emergency department for evaluation of yellowing of eyes. #. Alcoholic hepatitis with liver injury: MDF >32. Initiating po prednisone. No encephalopathy. Resuscitating with IV crystalloids. Consulted Gastroenterology, appreciate assistance. Alcohol abstinence. Hepatic steatosis with lesions noted on imaging. May need MRI. #. Conjugated hyperbilirubinemia in the setting of above #. Alcohol use disorder: Phenobarb protocol initiated in the ER. Monitor CIWA. Consulted Addiction Team. Initiating thiamine, folic acid and multivitamin #. Acute UTI: Initiating IV Rocephin. No sepsis. Follow urine culture #. Hypomagnesemia due to alcohol use: Repleted #. Hyperammonemia due to alcohol use. Dietary protein restriction. Lactulose initiated #. Thrombocytopenia in the setting of alcoholism #. History of DVT: On Eliquis #. Mood disorder: Continue home mood stabilizers #. Peripheral neuropathy: Gabapentin #. Gastroesophageal reflux disease: On PPI Med rec pending DVT prophylaxis: Eliquis Full code Admit as inpatient and will require two night minimum hospital stay for monitoring of liver enzymes, treatment of alcohol withdrawal, IV antibiotics (as above), which is not possible in a lesser acute setting. Quality Stroke Does the patient have a stroke diagnosis?: No VTE Prior VTE?: No VTE Risk Level:: Medical - moderate - high VTE Device Contraindication: N/A - Device Ordered VTE Drug Contraindication: Treatment Not Indicated
[2023-11-28 01:24] VITALS: BP 104/70; PULSE 84; RESP 17; TEMP 36.6; O2SAT 94
[2023-11-28] MEDS: Lactulose 20 GM/30 ML SOLUTION 30 GM PO (01:47)
[2023-11-28] MEDS: PHENobarbitaL sodium 130 MG/ML VIAL 328 MG IM (01:49)
[2023-11-28] MEDS: Lactated Ringers 1,000 ML 999 ML IV (01:53)
[2023-11-28] MEDS: Folic Acid 1 MG TABLET PO ×2 (02:19→09:03)
[2023-11-28] MEDS: Thiamine HCL 100 MG TABLET PO ×2 (02:19→09:03)
[2023-11-28] MEDS: cefTRIAXone sodium 1 GM in 0.9 % Sodium Chloride 50 ML IV (02:19)
[2023-11-28] MEDS: predniSONE 20 MG TABLET 40 MG PO ×2 (02:19→09:03)
[2023-11-28] MEDS: Magnesium Sulfate/H2O 2 GM/50 ML PIGGYBACK IV (03:04)
[2023-11-28] MEDS: PHENobarbitaL sodium 130 MG/ML VIAL 246 MG IM ×2 (04:12→08:36)
[2023-11-28 05:08] LABS: MANUAL DIFF FLAG NO
--- NOTE | 2023-11-28 05:08 | PC.NURSE ---
PT transferred to a hospital bed for comfort. Pt can have food and fluids PO per MD.
[2023-11-28 05:09] LABS: Basophils Percent Auto 0.6 % (0-2); Eosinophils Absolute Auto 0.1 X10*3/uL (0.0-0.4); Eosinophils Percent Auto 1.6 % (0-4); Hematocrit 34.3 % (42.0-52.0); Hemoglobin 12.8 g/dl (14.0-18.0); Imm Gran Abs Auto 0.02 X10*3/uL (0.00-0.03); Imm Gran Pct Auto 0.3 % (0.0-0.4); Lymphocytes Absolute Auto 0.6 X10*3/uL (1.2-4.9); Mean Corpuscular HGB Conc 37.3 g/dl (31.0-36.0); Mean Corpuscular Hemoglobin 35.6 pg (27.0-33.0); Mean Corpuscular Volume 95.3 fL (80.0-98.0); Mean Platelet Volume 12.5 fL (9.4-12.4); Monocytes Absolute Auto 0.7 X10*3/uL (0.1-1.2); Monocytes Percent Auto 11.6 % (2-11); Neutrophils Absolute Auto 4.8 x10*3/uL (2.0-8.3); Neutrophils Percent Auto 75.9 % (45-73); Red Cell Distribution Width 14.9 % (11.0-16.0); White Blood Count 6.3 X10*3/uL (4.8-10.8)
[2023-11-28 05:10] LABS: Platelet Count 79 X10*3/uL (160-400)
--- NOTE | 2023-11-28 05:21 | PC.NURSE ---
Took report from off-going RN at 2300 hrs. Pt is a 33 y/o male who presents for evaluation of yellow skin/eyes. Has a known history of ETOH abuse, drinks daily. Pt is calm and cooperative, appropriate with staff. Independent with ambulation and uses the toilet as needed. Pt is changed (clothes in C5) and home medications were transferred to pharmacy. Pt has been resting intermittently throughout the shift, appears comfortable. Easily arousable with verbal stimuli and verbalizes needs appropriately. Call light is withing reach and bed is at lowest position. Pt is pending admission upstairs. Declining detox.
[2023-11-28 05:22] LABS: Ammonia 63 umol/L (13-55)
[2023-11-28 05:25] LABS: Acetaminophen LAB < 3 mcg/mL (<30); Alanine Aminotransferase 115 U/L (0-40); Albumin Level 2.7 g/dL (3.5-5.0); Alkaline Phosphatase 250 U/L (39-117); Anion Gap 15 (12-20); Aspartate Amino Transferase 318 U/L (5-37); Bilirubin Total 23.3 mg/dL (0.0-1.0); Blood Urea Nitrogen 7 mg/dL (9-16); Calcium 8.1 mg/dL (8.4-10.2); Carbon Dioxide 26 mmol/L (22-29); Chloride 96 mmol/L (96-108); Creatinine Clr Calc Pharmacy 238.4; Estimated Glomerular Filt Rate > 60; Glucose Random 139 mg/dL (60-115); Magnesium 1.7 mg/dL (1.6-2.6); Potassium 3.2 mmol/L (3.3-5.1); Salicylate < 5.0 mg/dL (15-30); Sodium 134 mmol/L (135-145); Total Protein 4.8 g/dL (6.5-8.0)
--- NOTE | 2023-11-28 07:12 | PM.GICN ---
History of Present Illness Data of Consult Service Date: 11/28/23 Requesting physician: George Parra Primary Care Provider: Terry Coughlin MD HPI Reason for consult: jaundice 33-year-old male with history of alcohol use disorder, history of DVT on Eliquis, mood disorder, peripheral neuropathy, gastroesophageal reflux disease who I am seeing for assessment for jaundice Patient noted few weeks of yellow skin and eyes, also been havign nausea with small amounts of yellow emesis with out blood and poor appetite. he also has a vague ill defined generalized abdominal pain without radiation-just below 10/10 in severity,, not relieved or worsened by movement or food. He denies constipation but has noted looser stools than normal. He denies fevers or chills, feels him memory is intact, denies confusion. No hematemesis, melena or hematochezia. He denies taking NSAID, recreational drugs or tylenol. No history of alcohol withdrawal or alcohol withdrawal seizures in the past. He has been drinking non staop daily for the last 6 months, about a bottle of vodka. He denies sick contacts. MELD and MDF are unreliable as he in eliquis for prior DVT. Review of Systems Review of Systems: Constitutional : No Weight loss, No Fever, No Chills ENT/Mouth : No sore throat, No Rhinorrhea Eyes: No Swelling, No Redness Cardiovascular : No Chest Pain, No SOB, No Edema Respiratory : No Cough, No Sputum, No Wheezing Gastrointestinal : see HPI Genitourinary : NO Dysuria, No Urinary Frequency, No Hematuria, No Urgency Musculoskeletal : no joint pain, No Myalgias, No Joint Swelling Skin : No Skin Lesions, No rash Neuro : No Weakness, No Numbness, No Dizziness, No Headache Psych : No Anxiety/Panic, No Depression Heme/Lymph: No Bruising, No Lymphadenopathy Endocrine : No Polyuria, No Polydipsia All other systems reviewed and are negative. [facility] Past Medical History Medical History Neuropathy Sensory ataxia Clavicle fracture Alcohol abuse Foot pain, bilateral Abnormal complete blood count Abnormal liver enzymes No known health problems Family History Family History Paternal Grandfather Cancer Paternal Grandmother Cancer Surgical History Surgical History Hx of skin graft Social History Social History Household Members: Spouse Housing: Condominium Alcohol intake: current Alcohol intake frequency: 3 or more drinks per day Alcohol type: hard liquor Patient Tobacco Use Status: Former Tobacco user Years Smoked: 10 Smoked in Last 30 Days: Yes e-Cigarette/Vaping Use: Currently Using Use of substances other than those prescribed or required for medical reasons: No Substance Use Type: Marijuana Advance Directives: No Advance Directives Information Provided: No Do you have a plan to hurt others: No Plan service: No 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 status: 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 Meds Allergies Allergy/AdvReac Type Severity Reaction Status Date / Time No Known Allergies Allergy Verified 11/27/23 15:29 Active Medications: Current Medications Acetaminophen (Acetaminophen 325 Mg Tablet) 650 mg PO Q6H PRN PRN Reason: Pain, Mild (Pain Scale 1-3), fever or headache Calcium Carbonate (Calcium Carbonate 750 Mg Tab.Chew) 750 mg PO Q4H PRN PRN Reason: Heartburn Folic Acid (Folic Acid 1 Mg Tablet) 1 mg PO DAILY [facility] Last Admin: 11/28/23 02:19 Dose: 1 mg Ceftriaxone Sodium 1 gm/ (Sodium Chloride) 50 mls @ 100 mls/hr IV Q24H [facility] Last Infusion: 11/28/23 02:58 Dose: Infused Lactulose (Lactulose 20 Gm/30 Ml Solution) 20 gm PO BID [facility] Magnesium Hydroxide (Milk Of Magnesia 30 Ml Oral.Susp) 30 ml PO DAILY PRN PRN Reason: Constipation Melatonin (Melatonin 3 Mg Tablet) 6 mg PO BEDTIME PRN PRN Reason: Insomnia Multivitamins/Vitamin C (Multivitamin Tablet) 1 tab PO DAILY [facility] Ondansetron HCl (Ondansetron Hcl 4 Mg/2 Ml Vial) 4 mg IVPUSH Q8H PRN PRN Reason: Nausea and Vomiting Pharmacy Consult (Consult Rx Etoh Phenob Im/Po) 1 each MISCELLANE ONCE PRN; Protocol PRN Reason: Consult order Phenobarbital (Phenobarbital 30 Mg Tablet) 60 mg PO BID@1000,2300 [facility] Stop: 11/29/23 23:01 Phenobarbital (Phenobarbital 30 Mg Tablet) 30 mg PO BID@1000,2000 [facility] Stop: 12/01/23 20:01 Phenobarbital (Phenobarbital 15 Mg Tablet) 15 mg PO BID@1000,2200 [facility] Stop: 12/03/23 22:01 Prednisone (Prednisone 20 Mg Tablet) 40 mg PO DAILY [facility] Last Admin: 11/28/23 02:19 Dose: 40 mg Sodium Chloride (0.9 % Sodium Chloride Flush 3 Ml Syringe) 3 ml IVFLUSH QSHIFT [facility] Thiamine HCl (Thiamine Hcl 100 Mg Tablet) 100 mg PO DAILY [facility] Last Admin: 11/28/23 02:19 Dose: 100 mg Home Medications ?Medication ?Instructions ?Recorded ?Confirmed ?Last Taken ?Type buprenorphine 2 mg-naloxone 0.5 mg 1 film sublingual DAILY 12/31/21 10/06/23 01/16/22 History sublingual film Physical Exam Vital Signs: Vital Signs: Last Vital Signs Temp 97.9 F 11/28/23 01:24 Pulse 84 11/28/23 01:24 Resp 17 11/28/23 01:24 BP 104/70 11/28/23 01:24 Pulse Ox 94 11/28/23 01:24 O2 Del Method Room Air 11/28/23 01:24 BMI result Body Mass Index 28.7 EXAM: GENERAL: The patient is well developed and nontoxic. VITAL SIGNS:see workflow HEENT: icteric sclerae, PERRLA, EOMI. Oropharynx clear. Moist mucous membranes. Conjunctivae appear well perfused. No thyroid mass. CHEST: Chest wall is nontender. HEART: Regular rate and rhythm without murmurs. LUNGS: Clear to auscultation bilaterally. ABDOMEN: Soft, positive bowel sounds, generally tender edin RUQ, no organomegaly.no flank tenderness--mildly distended SKIN: No rash, no excessive bruising, petechiae, or purpura. NEUROLOGIC: Cranial nerves II-XII intact without motor/sensory deficit. Psych: normal affect Results Labs 11/28/23 05:02 11/28/23 05:02 Labs: Short CBC 11/27/23 11/28/23 Range/Units 16:12 05:02 WBC 6.8 6.3 (4.8-10.8) X10*3/uL Hgb 14.6 12.8 L (14.0-18.0) g/dl Hct 39.7 L 34.3 L (42.0-52.0) % Plt Count 92 L 79 L (160-400) X10*3/uL BMP 11/27/23 11/28/23 16:12 05:02 Sodium 137 134 L Potassium 3.5 3.2 L Chloride 96 96 Carbon Dioxide 30 H 26 BUN 6 L 7 L Creatinine 0.66 0.56 Calcium 8.8 8.1 L D Liver Function 11/27/23 11/28/23 Range/Units 16:12 05:02 Total Bilirubin 24.7 H 23.3 H (0.0-1.0) mg/dL Direct Bilirubin 16.4 H (0.0-0.5) mg/dL AST 390 H 318 H (5-37) U/L ALT 139 H 115 H (0-40) U/L Alkaline Phosphatase 290 H 250 H (39-117) U/L Albumin 3.2 L 2.7 L (3.5-5.0) g/dL Urine 11/27/23 Range/Units 20:04 Urine Color [place] A Urine Appearance Cloudy Urine pH 5.5 (5.0-9.0) Ur Specific [place] >= 1.030 H (1.005-1.025) Urine Protein 30 (1+) H (Neg-Trace) mg/dL Urine Glucose (UA) Negative (Negative) mg/dL Imaging CT scan - abdomen: Attestation: I personally reviewed and interpreted this imaging study as follows: (hepatosplenomegaly with enlarged LN, possibly 2 liver lesions, ) Assessment and Plan (1) Alcoholic hepatitis: Status: Acute Plan 1/ clinical history and presentation most consistent with alcoholic hepatitis, however he does have enlarged LN, might also be seen with severe inflammation, but need to r/o liver mass or lesions PLAN: 1/high protein diet, can help reduce inflammation and catabolic state, 1.1g/kg daily AT LEAST 2/ cont with pred for the moment, if no improvement in 1 week stop, unfortunately can;t use lille score to guide as he is on eliquis 3/ alcohol abstinence and multivitamins, 4/ check hep serologies 5/ MRI liver protocol r/o underlying liver lesions 6/ no need for EGD at this time, can consider on outpatient basis, no significant ascites on exam. Procedures Date of Service Date of Service: 11/28/23
[2023-11-28 07:16] VITALS: BP 104/67; PULSE 77; RESP 17; TEMP 37; O2SAT 94
[2023-11-28] MEDS: Lactated Ringers 1,000 ML 100 ML IVCONT ×2 (08:44→20:27)
[2023-11-28] MEDS: Potassium Chloride ER 20 MEQ TAB.ER.PRT 40 MEQ PO (09:02)
[2023-11-28] MEDS: Multivitamin TABLET 1 TAB PO (09:03)
[2023-11-28] MEDS: Lactulose 20 GM/30 ML SOLUTION PO ×2 (09:04→20:25)
[2023-11-28] MEDS: 0.9 % Sodium Chloride Flush 3 ML SYRINGE IVFLUSH (09:05)
--- NOTE | 2023-11-28 09:57 | PHA.MEDREC ---
Pharmacy Consult ? Medication Reconciliation Pharmacy has completed the medication reconciliation. Spoke to patient and confirmed medication list. Patient said he only takes senna 17.2 mg as needed. Last dose of his medications was yesterday (11/27/23) morning.
--- NOTE | 2023-11-28 10:44 | P.EN_ITS ---
Event Note Date of Service: 11/28/23 Event Note: This is a 33-year-old male with pertinent history of alcohol use disorder, history of DVT on Eliquis, mood disorder, peripheral neuropathy, gastroesophageal reflux disease who presents to the emergency department for evaluation of yellowing of eyes. Alcoholic hepatitis with liver injury MDF >32. Initiating po prednisone. No encephalopathy. Resuscitating with IV crystalloids. Consulted Gastroenterology>MRI liver protocol, continue vitamins, high protein d iet, hep serologies, continue steroids for one week Alcohol abstinence. Hepatic steatosis with lesions noted on imaging. May need MRI. UTI Rocephin follow urine cx Hypokalemia repleted with oral potassium Conjugated hyperbilirubinemia in the setting of above Alcohol use disorder Phenobarb protocol initiated in the ER. Monitor CIWA. Consulted Addiction Team. Initiating thiamine, folic acid and multivitamin Acute UTI Initiating IV Rocephin. No sepsis. Follow urine culture Hypomagnesemia due to alcohol use Repleted Hyperammonemia due to alcohol use. Lactulose initiated Thrombocytopenia in the setting of alcoholism History of DVT On Eliquis Mood disorder Continue home mood stabilizers Peripheral neuropathy Gabapentin Gastroesophageal reflux disease On PPI Attending Dr. Morataya Full code Time Spent With Patient Time: Total time managing care of this patient today ____ minutes.
[2023-11-28 11:32] VITALS: BMI 29.4
[2023-11-28 12:03] VITALS: BP 118/77; PULSE 80; RESP 18; TEMP 36.3; O2SAT 96
[2023-11-28] MEDS: PHENobarbitaL 30 MG TABLET 60 MG PO ×2 (14:45→23:54)
--- NOTE | 2023-11-28 15:10 | MHC.CM.PN ---
Pt self-care, lives at home with his fiance. Pt will arrange his own transport home at discharge. Educated on HCP, declined at this time. PCP: Dr. Zander Coughlin
[2023-11-28 15:42] VITALS: BP 111/64; PULSE 74; RESP 18; TEMP 36.7; O2SAT 93
[2023-11-28 19:59] VITALS: BP 107/65; PULSE 66; RESP 20; TEMP 36.9; O2SAT 95
[2023-11-28] MEDS: Gabapentin 100 MG CAPSULE PO (20:16)
[2023-11-28] MEDS: Apixaban 5 MG TABLET PO (20:26)
[2023-11-28] MEDS: LORazepam 1 MG TABLET PO (20:26)
[2023-11-28] MEDS: Melatonin 3 MG TABLET 6 MG PO (20:26)
[2023-11-28] MEDS: Nicotine 14 MG PATCH.TD24 TRANSDERMA (20:29)
[2023-11-28] MEDS: PHENobarbitaL sodium 130 MG/ML VIAL IM (23:53)
[2023-11-29] MEDS: cefTRIAXone sodium 1 GM in 0.9 % Sodium Chloride 50 ML IV (00:04)
[2023-11-29 00:07] VITALS: BP 119/74; PULSE 77; RESP 18; TEMP 36.8; O2SAT 94
[2023-11-29 04:00] VITALS: BP 109/68; PULSE 67; RESP 18; TEMP 36.7; O2SAT 94
[2023-11-29 06:22] LABS: Alanine Aminotransferase 95 U/L (0-40); Albumin Level 2.4 g/dL (3.5-5.0); Alkaline Phosphatase 208 U/L (39-117); Anion Gap 12 (12-20); Aspartate Amino Transferase 222 U/L (5-37); Bilirubin Direct 13.3 mg/dL (0.0-0.5); Bilirubin Total 18.8 mg/dL (0.0-1.0); Blood Urea Nitrogen 6 mg/dL (9-16); Carbon Dioxide 28 mmol/L (22-29); Chloride 100 mmol/L (96-108); Creatinine Clr Calc Pharmacy 236.8; Estimated Glomerular Filt Rate > 60; Glucose Random 111 mg/dL (60-115); Potassium 3.2 mmol/L (3.3-5.1); Sodium 137 mmol/L (135-145); Total Protein 4.3 g/dL (6.5-8.0)
--- NOTE | 2023-11-29 06:41 | PC.NURSE ---
Assumed care of patient since 1844 on 11/28/23. Patient scored 9 on a CIWA at the beginning of the shift. Dr Douglas was made aware. Patient received 130 mg IM phenobarbital x once and his scheduled dose of 60 mg po phenobarbital. The subsequent CIWA scores were 0 x 2. Patient remains calm with no signs of alcohol withdrawal. Nicotine patch applied upon patient request to his right deltoid. OOB x 2 to go to bathroom with one person assistance. 2 small liquid stools reported. VSS. No signs of acute distress noted.
[2023-11-29 07:05] VITALS: BP 108/64; PULSE 65; RESP 20; TEMP 36.2; O2SAT 93
[2023-11-29 08:06] LABS: HIV AB/AG Nonreactive (Nonreactive); HIV Num 1 0.05 S/CO (0.00-0.99)
[2023-11-29 08:09] LABS: HBS Num1 239.22 mIU/mL (0-7.99); HBc Num1 0.63 S/CO (0.00-0.79); HBsAGNum1 0.25 S/CO (0.00-0.99); Hepatitis A Antibody IgM 0.33 Index (0-0.79); Hepatitis B Core Antibody Nonreactive (Nonreactive); Hepatitis B Surface Antigen Negative (Negative); ~HepC Num1 0.32 S/CO (0.00-0.79); ~Hepatitis A Antibody IgM Nonreactive (Nonreactive); ~Hepatitis B Surface Antibody REACTIVE (Nonreactive); ~Hepatitis C Antibody Nonreactive (Nonreactive)
[2023-11-29] MEDS: Lactated Ringers 1,000 ML 100 ML IVCONT ×2 (08:57→20:12)
--- NOTE | 2023-11-29 09:34 | P.PNIM_ITS ---
Subjective Subjective Date of Service: 11/29/23 Review of Systems Follow up alcoholic hepatitis sleepy today stated feeling weak Physical Exam 2 Vital Signs: Vital Signs: Last Vital Signs Temp 97.1 F 11/29/23 07:05 Pulse 65 11/29/23 07:05 Resp 20 11/29/23 07:05 BP 108/64 11/29/23 07:05 Pulse Ox 93 11/29/23 07:05 O2 Del Method Room Air 11/29/23 07:05 BMI result Body Mass Index 29.4 Appearing in no acute distress Jaundice lung sounds are clear to auscultation heart regular rate rhythm, clear S1, S2 positive bowel sounds, abdomen is soft, nontender neuro patient is alert x3, no focal deficits Objective Data Active Medications Acetaminophen (Acetaminophen 325 Mg Tablet) 650 mg PO Q6H PRN PRN Reason: Pain, Mild (Pain Scale 1-3), fever or headache Apixaban (Apixaban 5 Mg Tablet) 5 mg PO BID [facility] Last Admin: 11/28/23 20:26 Dose: 5 mg Documented By: ONEL Atenolol (Atenolol 25 Mg Tablet) 25 mg PO DAILY [facility]; Protocol Buprenorphine/Naloxone (Buprenorphine/Naloxone 2/0.5mg Film) 1 film SUBLINGUAL DAILY [facility] Calcium Carbonate (Calcium Carbonate 750 Mg Tab.Chew) 750 mg PO Q4H PRN PRN Reason: Heartburn Folic Acid (Folic Acid 1 Mg Tablet) 1 mg PO DAILY [facility] Last Admin: 11/28/23 09:03 Dose: 1 mg Documented By: ELVIN Gabapentin (Gabapentin 100 Mg Capsule) 100 mg PO BID [facility] Last Admin: 11/28/23 20:16 Dose: 100 mg Documented By: ONEL Ceftriaxone Sodium 1 gm/ (Sodium Chloride) 50 mls @ 100 mls/hr IV Q24H [facility] Last Infusion: 11/29/23 00:34 Dose: Infused Documented By: ONEL Lactated Ringer's (Lr) 1,000 mls @ 100 mls/hr IVCONT .Q10H [facility] Last Admin: 11/29/23 08:57 Dose: 100 mls/hr Documented By: DEVORA Lactulose (Lactulose 20 Gm/30 Ml Solution) 20 gm PO BID [facility] Last Admin: 11/28/23 20:25 Dose: 20 gm Documented By: ONEL Lorazepam (Lorazepam 1 Mg Tablet) 1 mg PO TID PRN PRN Reason: anxiety Last Admin: 11/28/23 20:26 Dose: 1 mg Documented By: ONEL Magnesium Hydroxide (Milk Of Magnesia 30 Ml Oral.Susp) 30 ml PO DAILY PRN PRN Reason: Constipation Melatonin (Melatonin 3 Mg Tablet) 6 mg PO BEDTIME PRN PRN Reason: Insomnia Last Admin: 11/28/23 20:26 Dose: 6 mg Documented By: ONEL Multivitamins/Vitamin C (Multivitamin Tablet) 1 tab PO DAILY [facility] Last Admin: 11/28/23 09:03 Dose: 1 tab Documented By: ELVIN Omeprazole (Omeprazole 20 Mg Capsule.Dr) 20 mg PO DAILY [facility] Ondansetron HCl (Ondansetron Hcl 4 Mg/2 Ml Vial) 4 mg IVPUSH Q8H PRN PRN Reason: Nausea and Vomiting Pharmacy Consult (Consult Rx Etoh Phenob Im/Po) 1 each MISCELLANE ONCE PRN; Protocol PRN Reason: Consult order Phenobarbital (Phenobarbital 30 Mg Tablet) 60 mg PO BID@1000,2300 [facility] Stop: 11/29/23 23:01 Last Admin: 11/28/23 23:54 Dose: 60 mg Documented By: ONEL Phenobarbital (Phenobarbital 30 Mg Tablet) 30 mg PO BID@1000,2000 [facility] Stop: 12/01/23 20:01 Phenobarbital (Phenobarbital 15 Mg Tablet) 15 mg PO BID@1000,2200 [facility] Stop: 12/03/23 22:01 Prednisone (Prednisone 20 Mg Tablet) 40 mg PO DAILY [facility] Last Admin: 11/28/23 09:03 Dose: 40 mg Documented By: ELVIN Senna (Sennosides 8.6 Mg Tablet) 17.2 mg PO BEDTIME PRN PRN Reason: constipation Sodium Chloride (0.9 % Sodium Chloride Flush 3 Ml Syringe) 3 ml IVFLUSH QSHIFT [facility] Last Admin: 11/29/23 00:26 Dose: Not Given Documented By: ONEL Non-Admin Reason: See Note Comments: IVF LR infusing Thiamine HCl (Thiamine Hcl 100 Mg Tablet) 100 mg PO DAILY [facility] Last Admin: 11/28/23 09:03 Dose: 100 mg Documented By: ELVIN Labs 11/28/23 05:02 11/29/23 05:55 Labs: Laboratory Results - last 24 hr 11/27/23 11/28/23 11/29/23 16:12 05:02 05:55 Anion Gap 12 Estim Creat Clear Calc 236.8 Estimated GFR > 60 Random Glucose 111 Calcium 8.0 L Total Bilirubin 18.8 H Direct Bilirubin 13.3 H AST 222 H ALT 95 H Alkaline Phosphatase 208 H Total Protein 4.3 L Albumin 2.4 L Hepatitis A IgM Ab Nonreactive Hep Bs Antigen Negative Hep Bs Antibody REACTIVE Hep B Core Total Ab Nonreactive Hepatitis C Ab (EIA) Nonreactive HIV 1&2 Ab/P24 Ag 4thGn Nonreactive Microbiology Microbiology Results: Microbiology 11/27/23 20:04 Urine Culture - Final Urine clean catch - Clean Catch Midstream Assessment and Plan (1) Elevated blood pressure reading: Status: Resolved (2) Thrombocytopenia: Status: Acute (3) Leucopenia: Status: Acute (4) COVID: Status: Acute (5) Alcohol withdrawal: Status: Acute Plan This is a 33-year-old male with pertinent history of alcohol use disorder, history of DVT on Eliquis, mood disorder, peripheral neuropathy, gastroesophageal reflux disease who presents to the emergency department for evaluation of yellowing of eyes. Alcoholic hepatitis with liver injury MDF >32. Hepatic steatosis with lesions noted on imaging. continue po prednisone (started 11/28/23). No encephalopathy. Consulted Gastroenterology>MRI liver protocol, continue vitamins, high protein diet, hep serologies, continue steroids for one week Alcohol abstinence. UTI continue Rocephin for 3 days neg urine cx Hypokalemia repleted with oral potassium Conjugated hyperbilirubinemia in the setting of above Alcohol use disorder Phenobarb protocol initiated in the ER. Monitor CIWA. Consulted Addiction Team. Initiating thiamine, folic acid and multivitamin Acute UTI Initiating IV Rocephin. No sepsis. Follow urine culture Hypomagnesemia due to alcohol use Repleted Hyperammonemia due to alcohol use. Lactulose initiated Thrombocytopenia in the setting of alcoholism History of DVT On Eliquis Mood disorder Continue home mood stabilizers Peripheral neuropathy Gabapentin Gastroesophageal reflux disease On PPI Attending Dr. Patterson Full code Quality Stroke Does the patient have a stroke diagnosis?: No VTE Prior VTE?: No VTE Risk Level:: Medical - moderate - high VTE Device Contraindication: N/A - Device Ordered VTE Drug Contraindication: Treatment Not Indicated
[2023-11-29] MEDS: Omeprazole 20 MG CAPSULE.DR PO (10:21)
[2023-11-29] MEDS: Apixaban 5 MG TABLET PO ×2 (10:21→20:01)
[2023-11-29] MEDS: PHENobarbitaL 30 MG TABLET 60 MG PO (10:21)
[2023-11-29] MEDS: Potassium Chloride ER 20 MEQ TAB.ER.PRT 40 MEQ PO (10:21)
[2023-11-29] MEDS: predniSONE 20 MG TABLET 40 MG PO (10:21)
[2023-11-29] MEDS: Thiamine HCL 100 MG TABLET PO (10:22)
[2023-11-29] MEDS: Multivitamin TABLET 1 TAB PO (10:22)
[2023-11-29] MEDS: Buprenorphine/Naloxone 2/0.5mg FILM 1 FILM SUBLINGUAL (10:22)
[2023-11-29] MEDS: Lactulose 20 GM/30 ML SOLUTION PO ×2 (10:22→20:03)
[2023-11-29] MEDS: atenoloL 25 MG TABLET PO (10:22)
[2023-11-29] MEDS: Folic Acid 1 MG TABLET PO (10:22)
[2023-11-29] MEDS: Gabapentin 100 MG CAPSULE PO ×2 (10:22→20:01)
--- NOTE | 2023-11-29 10:38 | MHC.RECOVRN ---
Attempted to meet with pt after scoring positive on the AUDIT C. Pt laying in bed, eyes closed, wakes to voice. Reports feeling tired and requesting t/w return at another time. Resources left at bedside.
[2023-11-29] MEDS: gadobutroL 10 ML VIAL IVPUSH (13:07)
--- NOTE | 2023-11-29 14:02 | MHC.CM.PN ---
EMR reviewed and per MD rounds, pt is not medically cleared for discharge due to management of hepatitis.
[2023-11-29] MEDS: LORazepam 1 MG TABLET PO (14:17)
--- NOTE | 2023-11-29 14:28 | PC.NURSE ---
Patient refusing bed alarm. Patient is alert and oriented, standby assist with ambulation. Patient encouraged to call for help when needed. Educated on the importance of high fall risk protocol. Camera at bedside for safety.
[2023-11-29 14:56] VITALS: BP 116/66; PULSE 75; RESP 20; TEMP 36.4; O2SAT 92
[2023-11-29] MEDS: Nicotine 14 MG PATCH.TD24 TRANSDERMA (16:31)
[2023-11-29 19:01] VITALS: BP 125/75; PULSE 69; RESP 20; TEMP 36.8; O2SAT 96
[2023-11-29] MEDS: Melatonin 3 MG TABLET 6 MG PO (20:02)
[2023-11-29 23:48] VITALS: BP 111/67; PULSE 65; RESP 18; TEMP 36.7; O2SAT 95
[2023-11-30] MEDS: PHENobarbitaL 30 MG TABLET 60 MG PO (00:15)
[2023-11-30] MEDS: cefTRIAXone sodium 1 GM in 0.9 % Sodium Chloride 50 ML IV (00:16)
[2023-11-30] MEDS: 0.9 % Sodium Chloride Flush 3 ML SYRINGE IVFLUSH ×2 (00:18→19:42)
[2023-11-30 03:17] VITALS: BP 110/64; PULSE 62; RESP 20; TEMP 36.4; O2SAT 95
[2023-11-30] MEDS: Lactated Ringers 1,000 ML 100 ML IVCONT ×2 (05:54→15:15)
[2023-11-30 06:48] LABS: Alanine Aminotransferase 93 U/L (0-40); Albumin Level 2.4 g/dL (3.5-5.0); Alkaline Phosphatase 208 U/L (39-117); Anion Gap 12 (12-20); Aspartate Amino Transferase 179 U/L (5-37); Bilirubin Direct 12.3 mg/dL (0.0-0.5); Blood Urea Nitrogen 6 mg/dL (9-16); Calcium 8.2 mg/dL (8.4-10.2); Carbon Dioxide 28 mmol/L (22-29); Chloride 99 mmol/L (96-108); Creatinine Clr Calc Pharmacy 245.4; Estimated Glomerular Filt Rate > 60; Glucose Random 100 mg/dL (60-115); Potassium 3.3 mmol/L (3.3-5.1); Sodium 136 mmol/L (135-145); Total Protein 4.4 g/dL (6.5-8.0)
[2023-11-30 07:24] VITALS: BP 113/56; PULSE 60; RESP 20; TEMP 36.7; O2SAT 94
[2023-11-30 08:00] LABS: Ammonia 46 umol/L (13-55)
[2023-11-30] MEDS: atenoloL 25 MG TABLET PO (08:27)
[2023-11-30] MEDS: Folic Acid 1 MG TABLET PO (08:27)
[2023-11-30] MEDS: Thiamine HCL 100 MG TABLET PO (08:28)
[2023-11-30] MEDS: predniSONE 20 MG TABLET 40 MG PO (08:28)
[2023-11-30] MEDS: Multivitamin TABLET 1 TAB PO (08:28)
[2023-11-30] MEDS: Nicotine 14 MG PATCH.TD24 TRANSDERMA (08:28)
[2023-11-30] MEDS: Apixaban 5 MG TABLET PO ×2 (08:28→19:42)
[2023-11-30] MEDS: PHENobarbitaL 30 MG TABLET PO ×2 (08:28→19:42)
[2023-11-30] MEDS: Gabapentin 100 MG CAPSULE PO ×2 (08:28→19:42)
[2023-11-30] MEDS: Omeprazole 20 MG CAPSULE.DR PO (08:28)
[2023-11-30] MEDS: Buprenorphine/Naloxone 2/0.5mg FILM 1 FILM SUBLINGUAL (08:30)
[2023-11-30] MEDS: Lactulose 20 GM/30 ML SOLUTION PO ×2 (08:30→19:41)
--- NOTE | 2023-11-30 12:13 | P.PNIM_ITS ---
Subjective Subjective Date of Service: 11/30/23 Interval History: c/o tiredness ,increase anxiety due to lack of sleep ,minimal abd pain , denies fever, no chills, no other acute complaints. Review of Systems All other system reviewed and negative Physical Exam 2 Vital Signs: Vital Signs: Last Vital Signs Temp 98.0 F 11/30/23 07:24 Pulse 60 11/30/23 07:24 Resp 20 11/30/23 07:24 BP 113/56 L 11/30/23 07:24 Pulse Ox 94 11/30/23 07:24 O2 Del Method Room Air 11/30/23 07:24 BMI result Body Mass Index 29.4 Const: Other: General resting comfortably in no acute distress. icteric sclera Neck is supple no JVD. CVS regular rate rhythm, Respiratory lungs clear to auscultation, no respiratory distress, no wheeze, no rhonchi. Gastrointestinal abdomen soft,mild ruq tenderness,BS + Extremities 2+ edema. Neuro non focal Skin no rash Appropriate affect Objective Data Active Medications Acetaminophen (Acetaminophen 325 Mg Tablet) 650 mg PO Q6H PRN PRN Reason: Pain, Mild (Pain Scale 1-3), fever or headache Apixaban (Apixaban 5 Mg Tablet) 5 mg PO BID [facility] Last Admin: 11/30/23 08:28 Dose: 5 mg Documented By: COLBY Atenolol (Atenolol 25 Mg Tablet) 25 mg PO DAILY [facility]; Protocol Last Admin: 11/30/23 08:27 Dose: 25 mg Documented By: COLBY Buprenorphine/Naloxone (Buprenorphine/Naloxone 2/0.5mg Film) 1 film SUBLINGUAL DAILY [facility] Last Admin: 11/30/23 08:30 Dose: 1 film Documented By: COLBY Calcium Carbonate (Calcium Carbonate 750 Mg Tab.Chew) 750 mg PO Q4H PRN PRN Reason: Heartburn Folic Acid (Folic Acid 1 Mg Tablet) 1 mg PO DAILY [facility] Last Admin: 11/30/23 08:27 Dose: 1 mg Documented By: COLBY Gabapentin (Gabapentin 100 Mg Capsule) 100 mg PO BID [facility] Last Admin: 11/30/23 08:28 Dose: 100 mg Documented By: COLBY Ceftriaxone Sodium 1 gm/ (Sodium Chloride) 50 mls @ 100 mls/hr IV Q24H [facility] Stop: 11/30/23 23:59 Last Infusion: 11/30/23 00:46 Dose: Infused Documented By: ONEL Lactated Ringer's (Lr) 1,000 mls @ 100 mls/hr IVCONT .Q10H [facility] Last Admin: 11/30/23 05:54 Dose: 100 mls/hr Documented By: ONEL Lactulose (Lactulose 20 Gm/30 Ml Solution) 20 gm PO BID [facility] Last Admin: 11/30/23 08:30 Dose: 20 gm Documented By: COLBY Lorazepam (Lorazepam 1 Mg Tablet) 1 mg PO TID PRN PRN Reason: anxiety Last Admin: 11/29/23 14:17 Dose: 1 mg Documented By: DEVORA Comments: ripped barcode, unable to scan medication Magnesium Hydroxide (Milk Of Magnesia 30 Ml Oral.Susp) 30 ml PO DAILY PRN PRN Reason: Constipation Melatonin (Melatonin 3 Mg Tablet) 6 mg PO BEDTIME PRN PRN Reason: Insomnia Last Admin: 11/29/23 20:02 Dose: 6 mg Documented By: OENL Multivitamins/Vitamin C (Multivitamin Tablet) 1 tab PO DAILY [facility] Last Admin: 11/30/23 08:28 Dose: 1 tab Documented By: COLBY Nicotine (Nicotine 14 Mg Patch.Td24) 14 mg TRANSDERMA DAILY [facility] Last Admin: 11/30/23 08:28 Dose: 14 mg Documented By: COLBY Omeprazole (Omeprazole 20 Mg Capsule.Dr) 20 mg PO DAILY [facility] Last Admin: 11/30/23 08:28 Dose: 20 mg Documented By: COLBY Ondansetron HCl (Ondansetron Hcl 4 Mg/2 Ml Vial) 4 mg IVPUSH Q8H PRN PRN Reason: Nausea and Vomiting Pharmacy Consult (Consult Rx Etoh Phenob Im/Po) 1 each MISCELLANE ONCE PRN; Protocol PRN Reason: Consult order Phenobarbital (Phenobarbital 30 Mg Tablet) 30 mg PO BID@1000,2000 [facility] Stop: 12/01/23 20:01 Last Admin: 11/30/23 08:28 Dose: 30 mg Documented By: COLBY Phenobarbital (Phenobarbital 15 Mg Tablet) 15 mg PO BID@1000,2200 [facility] Stop: 12/03/23 22:01 Prednisone (Prednisone 20 Mg Tablet) 40 mg PO DAILY [facility] Stop: 12/04/23 00:39 Last Admin: 11/30/23 08:28 Dose: 40 mg Documented By: COLBY Senna (Sennosides 8.6 Mg Tablet) 17.2 mg PO BEDTIME PRN PRN Reason: constipation Sodium Chloride (0.9 % Sodium Chloride Flush 3 Ml Syringe) 3 ml IVFLUSH QSHIFT [facility] Last Admin: 11/30/23 07:52 Dose: Not Given Documented By: COLBY Non-Admin Reason: IV Running Thiamine HCl (Thiamine Hcl 100 Mg Tablet) 100 mg PO DAILY [facility] Last Admin: 11/30/23 08:28 Dose: 100 mg Documented By: COLBY Labs 11/28/23 05:02 11/30/23 05:48 Labs: Laboratory Results - last 24 hr 11/30/23 11/30/23 05:48 07:47 Hold Purple Top SEE NOTE Anion Gap 12 Estim Creat Clear Calc 245.4 Estimated GFR > 60 Random Glucose 100 Calcium 8.2 L Total Bilirubin 17.0 H Direct Bilirubin 12.3 H AST 179 H ALT 93 H Alkaline Phosphatase 208 H Ammonia 46 Total Protein 4.4 L Albumin 2.4 L Microbiology Microbiology Results: Microbiology 11/27/23 20:04 Urine Culture - Final Urine clean catch - Clean Catch Midstream Assessment and Plan (1) Acute alcoholic liver disease: Status: Acute Plan 33-year-old male with pertinent history of alcohol use disorder, history of DVT on Eliquis, mood disorder, peripheral neuropathy, gastroesophageal reflux disease who presents to the emergency department for evaluation of yellowing of eyes. Alcoholic hepatitis Total bili trending down, minimal abdominal discomfort, no fevers MDF >32. Hepatic steatosis with lesions noted on imaging. continue po prednisone (started 11/28/23). No encephalopathy. Seen by Dr. Lynne he recommended MRI liver protocol, to rule out liver mass, MRI obtained report pending, continue vitamins, added supplements, hep serologies neg., continue steroids. Recommend complete abstinence from alcohol. UTI Initially felt to have UTI however urine culture grew mixed bacterial francis will DC IV ceftriaxone. Hypokalemia repleted with oral potassium Alcohol use disorder Continue Phenobarb protocol on thiamine, folic acid and multivitamin. seen by recovery team, written resources including information on inpatient and outpatient treatment, harm reduction and recovery coaching provided. Hypomagnesemia due to alcohol use Repleted Hyperammonemia due to alcohol use. Ammonia 63 improved to 46, continue Lactulose Thrombocytopenia In the setting of alcoholism, platelet trending down will DC ceftriaxone, follow CBC History of DVT On Eliquis Mood disorder Continue home mood stabilizers Peripheral neuropathy on Gabapentin Gastroesophageal reflux disease On PPI Tobacco use disorder on nicotine patch DVT prophylaxis on Eliquis Full code Patient need continued inpatient hospitalization for close monitoring of alcoholic Quality Stroke Does the patient have a stroke diagnosis?: No VTE Prior VTE?: No VTE Risk Level:: Medical - moderate - high VTE Device Contraindication: N/A - Device Ordered VTE Drug Contraindication: Treatment Not Indicated
--- NOTE | 2023-11-30 14:26 | MHC.RECOVRN ---
Audit- C Brief Intervention Pt had positive screen for unhealthy alcohol use on admission, subsequently met with t/w to discuss alcohol use and recovery supports/options. Pt voices concern regarding alcohol use and is aware that drinking at unhealthy levels is known to increase risk of alcohol related health problems. Pt reports One sleeve of 100% proof vodka. Pt expresses how alcohol use has impacted health, including negative impact on his health and social ability. Discussed risk reduction strategies including drinking below the recommended limit and he has interest to stop all together. Provided pt with written resources including information on inpatient and outpatient treatment, [facility], harm reduction, and recovery coaching. Pt plans to attend the [facility] after discharge, I will see him tommorow and make an outpt appt. Pt provided with t/w contact information if questions or concerns arise. Denies other questions or concerns at this time.?
[2023-11-30 16:00] VITALS: BP 110/68; PULSE 63; RESP 20; TEMP 36.4; O2SAT 93
--- NOTE | 2023-11-30 17:55 | MHC.RECOVSUP ---
? Reason for consult Recovery Support o Current location: [facility] o Identified substance use concern: alcohol - Support ? Intervention: o Community resources provided o Harm reduction discussion ? Plan: o Patient to follow up with [facility] after discharge ? Additional information: Met with patient and we talked about Recovery, And Harm reduction. We also talked about different pathways to recovery and the resources. Patient stated that he would like a golf coach. A referral was submitted.
[2023-11-30] MEDS: LORazepam 1 MG TABLET PO (19:47)
[2023-11-30 19:56] VITALS: BP 106/72; PULSE 65; RESP 20; TEMP 36.4; O2SAT 96
[2023-12-01] MEDS: Melatonin 3 MG TABLET 6 MG PO ×2 (00:08→21:24)
[2023-12-01] MEDS: Lactated Ringers 1,000 ML 100 ML IVCONT (00:09)
[2023-12-01 04:00] VITALS: BP 112/71; PULSE 60; RESP 20; TEMP 36.9; O2SAT 96
[2023-12-01 07:17] VITALS: BP 108/71; PULSE 57; RESP 20; TEMP 36.3; O2SAT 93
[2023-12-01 07:56] LABS: Hematocrit 32.5 % (42.0-52.0); Hemoglobin 12.2 g/dl (14.0-18.0); Mean Corpuscular HGB Conc 37.5 g/dl (31.0-36.0); Mean Corpuscular Hemoglobin 36.1 pg (27.0-33.0); Mean Corpuscular Volume 96.2 fL (80.0-98.0); Mean Platelet Volume 12.2 fL (9.4-12.4); Platelet Count 124 X10*3/uL (160-400); Red Blood Count 3.38 X10*6/uL (4.60-5.80); Red Cell Distribution Width 15.3 % (11.0-16.0); White Blood Count 5.8 X10*3/uL (4.8-10.8)
[2023-12-01 07:57] LABS: Alanine Aminotransferase 87 U/L (0-40); Albumin Level 2.4 g/dL (3.5-5.0); Alkaline Phosphatase 211 U/L (39-117); Anion Gap 9 (12-20); Aspartate Amino Transferase 156 U/L (5-37); Bilirubin Direct 11.4 mg/dL (0.0-0.5); Bilirubin Total 15.4 mg/dL (0.0-1.0); Blood Urea Nitrogen 6 mg/dL (9-16); Calcium 8.2 mg/dL (8.4-10.2); Carbon Dioxide 30 mmol/L (22-29); Chloride 101 mmol/L (96-108); Creatinine Clr Calc Pharmacy 217.7; Estimated Glomerular Filt Rate > 60; Glucose Random 93 mg/dL (60-115); Potassium 3.1 mmol/L (3.3-5.1); Sodium 137 mmol/L (135-145); Total Protein 4.5 g/dL (6.5-8.0)
[2023-12-01] MEDS: predniSONE 20 MG TABLET 40 MG PO (08:20)
[2023-12-01] MEDS: Omeprazole 20 MG CAPSULE.DR PO (08:20)
[2023-12-01] MEDS: Multivitamin TABLET 1 TAB PO (08:20)
[2023-12-01] MEDS: Thiamine HCL 100 MG TABLET PO (08:20)
[2023-12-01] MEDS: PHENobarbitaL 30 MG TABLET PO ×2 (08:20→19:54)
[2023-12-01] MEDS: Gabapentin 100 MG CAPSULE PO ×2 (08:20→19:54)
[2023-12-01] MEDS: atenoloL 25 MG TABLET PO (08:21)
[2023-12-01] MEDS: Apixaban 5 MG TABLET PO ×2 (08:21→19:54)
[2023-12-01] MEDS: Nicotine 14 MG PATCH.TD24 TRANSDERMA (08:21)
[2023-12-01] MEDS: Folic Acid 1 MG TABLET PO (08:21)
[2023-12-01] MEDS: Lactulose 20 GM/30 ML SOLUTION PO ×2 (08:21→19:53)
[2023-12-01] MEDS: Buprenorphine/Naloxone 2/0.5mg FILM 1 FILM SUBLINGUAL (08:21)
[2023-12-01] MEDS: LORazepam 1 MG TABLET PO ×3 (08:23→21:26)
[2023-12-01 10:00] LABS: Lipase 60 U/L (8-78)
--- NOTE | 2023-12-01 12:42 | HO.PM.IMPN ---
Subjective Subjective Date of Service: 12/01/23 Interval History: Complaining of persistent right upper quadrant pain, offers no other acute complaints denies nausea, no vomiting, no fevers, no chills, no headache no lightheadedness, no dizziness, no acute events overnight. Refusing to eat breakfast wants to sleep. Review of Systems All other system reviewed and are negative. Physical Exam Vital Signs: Vital Signs: Last Vital Signs Temp 97.4 F 12/01/23 07:17 Pulse 57 12/01/23 07:17 Resp 20 12/01/23 07:17 BP 108/71 12/01/23 07:17 Pulse Ox 93 12/01/23 07:17 O2 Del Method Room Air 12/01/23 07:17 BMI result Body Mass Index 29.4 Const: Other: General resting comfortably in no acute distress. icteric sclera Neck is supple no JVD. CVS regular rate rhythm, Respiratory lungs clear to auscultation, no respiratory distress, no wheeze, no rhonchi. Gastrointestinal abdomen soft, persistent ruq tenderness,BS + Extremities + edema. Neuro non focal Skin no rash Appropriate affect Objective Data Active Medications Acetaminophen (Acetaminophen 325 Mg Tablet) 650 mg PO Q6H PRN PRN Reason: Pain, Mild (Pain Scale 1-3), fever or headache Apixaban (Apixaban 5 Mg Tablet) 5 mg PO BID [facility] Last Admin: 12/01/23 08:21 Dose: 5 mg Documented By: KATHIE Atenolol (Atenolol 25 Mg Tablet) 25 mg PO DAILY [facility]; Protocol Last Admin: 12/01/23 08:21 Dose: 25 mg Documented By: KATHIE Buprenorphine/Naloxone (Buprenorphine/Naloxone 2/0.5mg Film) 1 film SUBLINGUAL DAILY [facility] Last Admin: 12/01/23 08:21 Dose: 1 film Documented By: KATHIE Calcium Carbonate (Calcium Carbonate 750 Mg Tab.Chew) 750 mg PO Q4H PRN PRN Reason: Heartburn Folic Acid (Folic Acid 1 Mg Tablet) 1 mg PO DAILY [facility] Last Admin: 12/01/23 08:21 Dose: 1 mg Documented By: KATHIE Gabapentin (Gabapentin 100 Mg Capsule) 100 mg PO BID [facility] Last Admin: 12/01/23 08:20 Dose: 100 mg Documented By: KATHIE Lactulose (Lactulose 20 Gm/30 Ml Solution) 20 gm PO BID [facility] Last Admin: 12/01/23 08:21 Dose: 20 gm Documented By: KATHIE Lorazepam (Lorazepam 1 Mg Tablet) 1 mg PO TID PRN PRN Reason: anxiety Last Admin: 12/01/23 08:23 Dose: 1 mg Documented By: KATHIE Magnesium Hydroxide (Milk Of Magnesia 30 Ml Oral.Susp) 30 ml PO DAILY PRN PRN Reason: Constipation Melatonin (Melatonin 3 Mg Tablet) 6 mg PO BEDTIME PRN PRN Reason: Insomnia Last Admin: 12/01/23 00:08 Dose: 6 mg Documented By: KEVIN Multivitamins/Vitamin C (Multivitamin Tablet) 1 tab PO DAILY [facility] Last Admin: 12/01/23 08:20 Dose: 1 tab Documented By: KATHIE Nicotine (Nicotine 14 Mg Patch.Td24) 14 mg TRANSDERMA DAILY [facility] Last Admin: 12/01/23 08:21 Dose: 14 mg Documented By: KATHIE Omeprazole (Omeprazole 20 Mg Capsule.Dr) 20 mg PO DAILY [facility] Last Admin: 12/01/23 08:20 Dose: 20 mg Documented By: KATHIE Ondansetron HCl (Ondansetron Hcl 4 Mg/2 Ml Vial) 4 mg IVPUSH Q8H PRN PRN Reason: Nausea and Vomiting Pharmacy Consult (Consult Rx Etoh Phenob Im/Po) 1 each MISCELLANE ONCE PRN; Protocol PRN Reason: Consult order Phenobarbital (Phenobarbital 30 Mg Tablet) 30 mg PO BID@1000,2000 [facility] Stop: 12/01/23 20:01 Last Admin: 12/01/23 08:20 Dose: 30 mg Documented By: KATHIE Phenobarbital (Phenobarbital 15 Mg Tablet) 15 mg PO BID@1000,2200 [facility] Stop: 12/03/23 22:01 Prednisone (Prednisone 20 Mg Tablet) 40 mg PO DAILY [facility] Stop: 12/04/23 00:39 Last Admin: 12/01/23 08:20 Dose: 40 mg Documented By: KATHIE Senna (Sennosides 8.6 Mg Tablet) 17.2 mg PO BEDTIME PRN PRN Reason: constipation Sodium Chloride (0.9 % Sodium Chloride Flush 3 Ml Syringe) 3 ml IVFLUSH QSHIFT [facility] Last Admin: 12/01/23 08:27 Dose: Not Given Documented By: KATHIE Non-Admin Reason: IV Running Thiamine HCl (Thiamine Hcl 100 Mg Tablet) 100 mg PO DAILY [facility] Last Admin: 12/01/23 08:20 Dose: 100 mg Documented By: KATHIE Labs 12/01/23 06:43 12/01/23 06:43 Labs: Laboratory Results - last 24 hr 12/01/23 06:43 MCV 96.2 MCH 36.1 H MCHC 37.5 H RDW 15.3 Plt Count 124 L D MPV 12.2 Absolute Nucleated RBC 0.000 Nucleated RBC % (auto) 0.0 Anion Gap 9 L Estim Creat Clear Calc 217.7 Estimated GFR > 60 Random Glucose 93 Calcium 8.2 L Total Bilirubin 15.4 H Direct Bilirubin 11.4 H AST 156 H ALT 87 H Alkaline Phosphatase 211 H Total Protein 4.5 L Albumin 2.4 L Lipase 60 Assessment and Plan (1) Acute alcoholic liver disease: Status: Acute Plan 33-year-old male with pertinent history of alcohol use disorder, history of DVT on Eliquis, mood disorder, peripheral neuropathy, gastroesophageal reflux disease who presents to the emergency department for evaluation of yellowing of eyes. Alcoholic hepatitis Total bili and liver enzymes slowly trending down, persistent right upper quadrant abdominal pain,no fevers, no leukocytosis Hepatic steatosis with lesions noted on CT abdomen and pelvis. Hepatitis serology nonreactive, HIV nonreactive on po prednisone (started 11/28/23). No encephalopathy. MRI abdomen obtained to follow-up on liver lesions,it showed peripancreatic fluid and fat stranding suspicious for acute interstitial pancreatitis, cholelithiasis with a distended gallbladder, with gallbladder wall thickening and edema do nonspecific in the setting of underlying liver disease but constellation of findings raises possibility of acute cholecystitis, no intra or extrahepatic biliary ductal dilatation, hepatomegaly and marked hepatic steatosis previously described low-attenuation liver lesions correspond to focus of focal fat, reactive gastrohepatic, ernestine hepatic and retroperitoneal lymph nodes. Small volume ascites and moderate anasarca also noted. Will obtain HIDA scan rule out acute cholecystitis with cholelithiasis High-protein diet/albumin 25 g x 2 Lipase 60 Surgical evaluation IV flagyl. Recommend complete abstinence from alcohol. UTI Initially felt to have UTI however urine culture grew mixed bacterial francis therefore discontinued IV antibiotics Hypokalemia Replete and follow labs Alcohol use disorder Continue Phenobarb protocol on thiamine, folic acid and multivitamin. seen by recovery team, written resources including information on inpatient and outpatient treatment, harm reduction and recovery coaching provided. Hypomagnesemia due to alcohol use Repleted Hyperammonemia due to alcohol use. Ammonia 63 improved to 46, continue Lactulose Thrombocytopenia In the setting of alcoholism, platelets returned to baseline after stopping ceftriaxone. History of DVT On Eliquis, will discuss with Hematology for continued use of Eliquis for thrombophlebitis Mood disorder Continue home mood stabilizers Peripheral neuropathy on Gabapentin Gastroesophageal reflux disease On PPI Tobacco use disorder on nicotine patch DVT prophylaxis on Eliquis Full code Patient need continued inpatient hospitalization for close monitoring of alcoholic liver disease, further workup and expert consultation for acute cholecystitis Quality Stroke Does the patient have a stroke diagnosis?: No VTE Prior VTE?: No VTE Risk Level:: Medical - moderate - high VTE Device Contraindication: N/A - Device Ordered VTE Drug Contraindication: Treatment Not Indicated
--- NOTE | 2023-12-01 14:20 | PM.CNGS ---
History of Present Illness Consult details Consult date: 12/01/23 Requesting physician: Susy Jacobs Narrative: 33 year old male with PMH significant for alcohol use disorder, history of DVT on Eliquis, mood disorder, peripheral neuropathy, gastroesophageal reflux disease who presented with yellowing of the eyes. He reports yellow skin and eyes for a week. He also endorses diffuse upper abdominal pain, more on the right side, that began around 2-3 weeks ago associated with nausea and vomiting. He denies fatty food intolerance or any provoking or exacerbating factors. He denies fever, chills. He reports daily drinking of a bottle of vodka for the past 6 months. Work up in the ED showed total bilirubin found to be 24.7 and ammonia level was 108. He was admitted for further treatment of the acute alcoholic hepatitis, hyperammonemia. Work up of the liver disease included MRI abd which showed hepatomegaly, cirrhosis, no biliary ductal dilatation, cholelithiasis with a distended gallbladder with wall thickening and edema. HIDA scan was ordered. General surgery was therefore consulted for concern for acute cholecystitis. Review of Systems Constitutional: Constitutional: Denies chills and Denies fever(s) ENT: Denies dizziness Cardiovascular: Cardiovascular: Denies chest pain and Denies dyspnea Respiratory: Respiratory: Denies cough and Denies dyspnea Gastrointestinal: Gastrointestinal: Reports as per HPI Integumentary/Breasts: Skin/Breast: Denies rash and Reports jaundice Neurologic: Denies dizziness PMFSH Past Medical History Medical History Neuropathy Sensory ataxia Clavicle fracture Alcohol abuse Foot pain, bilateral Abnormal complete blood count Abnormal liver enzymes No known health problems Family History Family History Paternal Grandfather Cancer Paternal Grandmother Cancer Surgical History Surgical History Hx of skin graft Social History Social History Household Members: Spouse Housing: Condominium Do you presently have visiting nurse or other home services: No Alcohol intake: current Alcohol intake frequency: 3 or more drinks per day Alcohol type: hard liquor Comment: Pt refusing alarms Patient Tobacco Use Status: Former Tobacco user Years Smoked: 10 e-Cigarette/Vaping Use: Currently Using Substance Use Type: Marijuana service: No 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 status: 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 Meds Allergies Allergy/AdvReac Type Severity Reaction Status Date / Time No Known Allergies Allergy Verified 11/27/23 15:29 Active Medications: Current Medications Acetaminophen (Acetaminophen 325 Mg Tablet) 650 mg PO Q6H PRN PRN Reason: Pain, Mild (Pain Scale 1-3), fever or headache Apixaban (Apixaban 5 Mg Tablet) 5 mg PO BID [facility] Last Admin: 12/01/23 08:21 Dose: 5 mg Atenolol (Atenolol 25 Mg Tablet) 25 mg PO DAILY [facility]; Protocol Last Admin: 12/01/23 08:21 Dose: 25 mg Buprenorphine/Naloxone (Buprenorphine/Naloxone 2/0.5mg Film) 1 film SUBLINGUAL DAILY [facility] Last Admin: 12/01/23 08:21 Dose: 1 film Calcium Carbonate (Calcium Carbonate 750 Mg Tab.Chew) 750 mg PO Q4H PRN PRN Reason: Heartburn Folic Acid (Folic Acid 1 Mg Tablet) 1 mg PO DAILY [facility] Last Admin: 12/01/23 08:21 Dose: 1 mg Gabapentin (Gabapentin 100 Mg Capsule) 100 mg PO BID [facility] Last Admin: 12/01/23 08:20 Dose: 100 mg Albumin Human (Kedbumin 25 %) 100 mls @ 100 mls/hr IV Q1H [facility] Stop: 12/01/23 14:59 Metronidazole (Flagyl) 500 mg in 100 mls @ 100 mls/hr IV Q8H [facility] Lactulose (Lactulose 20 Gm/30 Ml Solution) 20 gm PO BID [facility] Last Admin: 12/01/23 08:21 Dose: 20 gm Lorazepam (Lorazepam 1 Mg Tablet) 1 mg PO TID PRN PRN Reason: anxiety Last Admin: 12/01/23 08:23 Dose: 1 mg Magnesium Hydroxide (Milk Of Magnesia 30 Ml Oral.Susp) 30 ml PO DAILY PRN PRN Reason: Constipation Melatonin (Melatonin 3 Mg Tablet) 6 mg PO BEDTIME PRN PRN Reason: Insomnia Last Admin: 12/01/23 00:08 Dose: 6 mg Multivitamins/Vitamin C (Multivitamin Tablet) 1 tab PO DAILY [facility] Last Admin: 12/01/23 08:20 Dose: 1 tab Nicotine (Nicotine 14 Mg Patch.Td24) 14 mg TRANSDERMA DAILY [facility] Last Admin: 12/01/23 08:21 Dose: 14 mg Omeprazole (Omeprazole 20 Mg Capsule.Dr) 20 mg PO DAILY [facility] Last Admin: 12/01/23 08:20 Dose: 20 mg Ondansetron HCl (Ondansetron Hcl 4 Mg/2 Ml Vial) 4 mg IVPUSH Q8H PRN PRN Reason: Nausea and Vomiting Pharmacy Consult (Consult Rx Etoh Phenob Im/Po) 1 each MISCELLANE ONCE PRN; Protocol PRN Reason: Consult order Phenobarbital (Phenobarbital 30 Mg Tablet) 30 mg PO BID@1000,2000 [facility] Stop: 12/01/23 20:01 Last Admin: 12/01/23 08:20 Dose: 30 mg Phenobarbital (Phenobarbital 15 Mg Tablet) 15 mg PO BID@1000,2200 [facility] Stop: 12/03/23 22:01 Prednisone (Prednisone 20 Mg Tablet) 40 mg PO DAILY [facility] Stop: 12/04/23 00:39 Last Admin: 12/01/23 08:20 Dose: 40 mg Senna (Sennosides 8.6 Mg Tablet) 17.2 mg PO BEDTIME PRN PRN Reason: constipation Sodium Chloride (0.9 % Sodium Chloride Flush 3 Ml Syringe) 3 ml IVFLUSH QSHIFT [facility] Last Admin: 12/01/23 08:27 Dose: Not Given Thiamine HCl (Thiamine Hcl 100 Mg Tablet) 100 mg PO DAILY [facility] Last Admin: 12/01/23 08:20 Dose: 100 mg Home Medications ?Medication ?Instructions ?Recorded ?Confirmed ?Last Taken ?Type buprenorphine 2 mg-naloxone 0.5 mg 1 film sublingual DAILY 12/31/21 11/28/23 11/27/23 History sublingual film sennosides 8.6 mg tablet (Natural 17.2 mg PO BEDTIME PRN constipation 11/28/23 11/28/23 Unknown History Senna Laxative) Physical Exam Vital Signs: Vital Signs: Last Vital Signs Temp 97.4 F 12/01/23 07:17 Pulse 57 12/01/23 07:17 Resp 20 12/01/23 07:17 BP 108/71 12/01/23 07:17 Pulse Ox 93 12/01/23 07:17 O2 Del Method Room Air 12/01/23 07:17 BMI result Body Mass Index 29.4 Const: General: no acute distress and alert Orientation/consciousness: patient oriented x3 Eyes: Sclerae: scleral abnormal (icteric) Resp: Effort & Inspection: normal respiratory effort Cardio: Rate: regular rate GI: Other: striae of lower abdomen Inspection: No distended Palpation (GI): Soft to palpation, Tenderness to palpation present (GI) (upper abdomen, moderate RUQ/right flank tenderness) Duran's sign negative, no guarding, not rigid and No Rebound tenderness present Skin: General skin exam: jaundice Neuro: General: patient oriented x3 and moves all extremities Results Labs 12/01/23 06:43 12/01/23 06:43 Labs: Abnormal lab results 12/01/23 Range/Units 06:43 RBC 3.38 L (4.60-5.80) X10*6/uL Hgb 12.2 L (14.0-18.0) g/dl Hct 32.5 L (42.0-52.0) % MCH 36.1 H (27.0-33.0) pg MCHC 37.5 H (31.0-36.0) g/dl Plt Count 124 L D (160-400) X10*3/uL Potassium 3.1 L (3.3-5.1) mmol/L Carbon Dioxide 30 H (22-29) mmol/L Anion Gap 9 L (12-20) BUN 6 L (9-16) mg/dL Calcium 8.2 L (8.4-10.2) mg/dL Total Bilirubin 15.4 H (0.0-1.0) mg/dL Direct Bilirubin 11.4 H (0.0-0.5) mg/dL AST 156 H (5-37) U/L ALT 87 H (0-40) U/L Alkaline Phosphatase 211 H (39-117) U/L Total Protein 4.5 L (6.5-8.0) g/dL Albumin 2.4 L (3.5-5.0) g/dL Short CBC 12/01/23 Range/Units 06:43 WBC 5.8 (4.8-10.8) X10*3/uL Hgb 12.2 L (14.0-18.0) g/dl Hct 32.5 L (42.0-52.0) % Plt Count 124 L D (160-400) X10*3/uL BMP 12/01/23 06:43 Sodium 137 Potassium 3.1 L Chloride 101 Carbon Dioxide 30 H BUN 6 L Creatinine 0.62 Calcium 8.2 L Liver Function 12/01/23 Range/Units 06:43 Total Bilirubin 15.4 H (0.0-1.0) mg/dL Direct Bilirubin 11.4 H (0.0-0.5) mg/dL AST 156 H (5-37) U/L ALT 87 H (0-40) U/L Alkaline Phosphatase 211 H (39-117) U/L Albumin 2.4 L (3.5-5.0) g/dL Urine 11/27/23 Range/Units 20:04 Urine Color [place] A Urine Appearance Cloudy Urine pH 5.5 (5.0-9.0) Ur Specific [place] >= 1.030 H (1.005-1.025) Urine Protein 30 (1+) H (Neg-Trace) mg/dL Urine Glucose (UA) Negative (Negative) mg/dL All other labs normal. Imaging Abdomen CT scan report/results: report reviewed and image reviewed Assessment and Plan (1) Acute alcoholic liver disease: Status: Acute Plan 33 year old male with PMH significant for alcohol use disorder, history of DVT on Eliquis, mood disorder, peripheral neuropathy, gastroesophageal reflux disease admitted for acute alcoholic hepatitis found to have a distended gallbladder with wall thickening on MRI. Feel the gallbladder wall thickening is likely secondary to the hepatitis and liver disease instead of acute cholecystitis. Furthermore he has no leukocytosis and is only mildly tender in the RUQ. He is awaiting HIDA scan however this may be falsely positive in the setting of severe liver disease. Will continue to follow. Rec continuing supportive measures for now. Procedures Date of Service Date of Service: 12/01/23
[2023-12-01 16:08] VITALS: BP 117/74; PULSE 57; RESP 20; TEMP 36.3; O2SAT 94
[2023-12-01] MEDS: metroNIDAZOLE/NS 500 MG/100 ML PIGGYBACK 100 MG IV ×2 (16:13→19:54)
[2023-12-01] MEDS: Potassium Chloride ER 20 MEQ TAB.ER.PRT 40 MEQ PO (16:13)
[2023-12-01] MEDS: 0.9 % Sodium Chloride Flush 3 ML SYRINGE IVFLUSH ×2 (16:16→19:54)
[2023-12-01] MEDS: Albumin Human 25 % 100 ML IV ×2 (17:32→18:35)
[2023-12-01 19:15] VITALS: BP 105/63; PULSE 65; RESP 20; TEMP 36.7; O2SAT 95
[2023-12-02] MEDS: hydrOXYzine HCL 25 MG TABLET PO (00:42)
[2023-12-02 00:59] VITALS: BP 111/72; PULSE 63; RESP 16; TEMP 36.5; O2SAT 97
[2023-12-02] MEDS: metroNIDAZOLE/NS 500 MG/100 ML PIGGYBACK 100 MG IV ×2 (04:36→13:50)
[2023-12-02 07:59] VITALS: BP 105/65; PULSE 60; RESP 16; TEMP 36.3; O2SAT 94
[2023-12-02 09:06] LABS: Alanine Aminotransferase 84 U/L (0-40); Albumin Level 2.9 g/dL (3.5-5.0); Alkaline Phosphatase 201 U/L (39-117); Anion Gap 12 (12-20); Aspartate Amino Transferase 144 U/L (5-37); Bilirubin Direct 10.3 mg/dL (0.0-0.5); Bilirubin Total 14.4 mg/dL (0.0-1.0); Blood Urea Nitrogen 5 mg/dL (9-16); Calcium 8.1 mg/dL (8.4-10.2); Carbon Dioxide 26 mmol/L (22-29); Chloride 101 mmol/L (96-108); Creatinine Clr Calc Pharmacy 236.8; Estimated Glomerular Filt Rate > 60; Glucose Random 93 mg/dL (60-115); Potassium 3.2 mmol/L (3.3-5.1); Sodium 136 mmol/L (135-145); Total Protein 4.8 g/dL (6.5-8.0)
--- NOTE | 2023-12-02 10:04 | P.PNGS_ITS ---
Subjective Subjective Date of Service: 12/02/23 Interval history: Sleepy this morning. Complains that he is being woken up hourly. Reports continued RUQ and LUQ discomfort. Physical Exam 2 Vital Signs: Vital Signs: Last Vital Signs Temp 97.4 F 12/02/23 07:59 Pulse 60 12/02/23 07:59 Resp 16 12/02/23 07:59 BP 105/65 12/02/23 07:59 Pulse Ox 94 12/02/23 07:59 O2 Del Method Room Air 12/02/23 07:59 BMI result Body Mass Index 29.4 Const: General: comfortable and no acute distress Resp: Effort & Inspection: normal respiratory effort GI: Palpation (GI): Soft to palpation and Tenderness to palpation present (GI) (mild RUQ and LUQ tenderness) Duran's sign negative and with no rebound tenderness Skin: General skin exam: jaundice Objective Data Active Medications Acetaminophen (Acetaminophen 325 Mg Tablet) 650 mg PO Q6H PRN PRN Reason: Pain, Mild (Pain Scale 1-3), fever or headache Apixaban (Apixaban 5 Mg Tablet) 5 mg PO BID [facility] Last Admin: 12/01/23 19:54 Dose: 5 mg Documented By: KEVIN Atenolol (Atenolol 25 Mg Tablet) 25 mg PO DAILY [facility]; Protocol Last Admin: 12/01/23 08:21 Dose: 25 mg Documented By: KATHIE Buprenorphine/Naloxone (Buprenorphine/Naloxone 2/0.5mg Film) 1 film SUBLINGUAL DAILY [facility] Last Admin: 12/01/23 08:21 Dose: 1 film Documented By: KATHIE Calcium Carbonate (Calcium Carbonate 750 Mg Tab.Chew) 750 mg PO Q4H PRN PRN Reason: Heartburn Folic Acid (Folic Acid 1 Mg Tablet) 1 mg PO DAILY [facility] Last Admin: 12/01/23 08:21 Dose: 1 mg Documented By: KATHIE Gabapentin (Gabapentin 100 Mg Capsule) 100 mg PO BID [facility] Last Admin: 12/01/23 19:54 Dose: 100 mg Documented By: KEVIN Metronidazole (Flagyl) 500 mg in 100 mls @ 100 mls/hr IV Q8H [facility] Last Infusion: 12/02/23 05:50 Dose: Infused Documented By: ARJUN Lactulose (Lactulose 20 Gm/30 Ml Solution) 20 gm PO BID [facility] Last Admin: 12/01/23 19:53 Dose: 20 gm Documented By: KEVIN Lorazepam (Lorazepam 1 Mg Tablet) 1 mg PO TID PRN PRN Reason: anxiety Last Admin: 12/01/23 21:26 Dose: 1 mg Documented By: KEVIN Magnesium Hydroxide (Milk Of Magnesia 30 Ml Oral.Susp) 30 ml PO DAILY PRN PRN Reason: Constipation Melatonin (Melatonin 3 Mg Tablet) 6 mg PO BEDTIME PRN PRN Reason: Insomnia Last Admin: 12/01/23 21:24 Dose: 6 mg Documented By: KEVIN Multivitamins/Vitamin C (Multivitamin Tablet) 1 tab PO DAILY [facility] Last Admin: 12/01/23 08:20 Dose: 1 tab Documented By: KATHIE Nicotine (Nicotine 14 Mg Patch.Td24) 14 mg TRANSDERMA DAILY [facility] Last Admin: 12/01/23 08:21 Dose: 14 mg Documented By: KATHIE Omeprazole (Omeprazole 20 Mg Capsule.Dr) 20 mg PO DAILY [facility] Last Admin: 12/01/23 08:20 Dose: 20 mg Documented By: KATHIE Ondansetron HCl (Ondansetron Hcl 4 Mg/2 Ml Vial) 4 mg IVPUSH Q8H PRN PRN Reason: Nausea and Vomiting Pharmacy Consult (Consult Rx Etoh Phenob Im/Po) 1 each MISCELLANE ONCE PRN; Protocol PRN Reason: Consult order Phenobarbital (Phenobarbital 15 Mg Tablet) 15 mg PO BID@1000,2200 [facility] Stop: 12/03/23 22:01 Prednisone (Prednisone 20 Mg Tablet) 40 mg PO DAILY [facility] Stop: 12/04/23 00:39 Last Admin: 12/01/23 08:20 Dose: 40 mg Documented By: KATHIE Senna (Sennosides 8.6 Mg Tablet) 17.2 mg PO BEDTIME PRN PRN Reason: constipation Sodium Chloride (0.9 % Sodium Chloride Flush 3 Ml Syringe) 3 ml IVFLUSH QSHIFT [facility] Last Admin: 12/01/23 19:54 Dose: 3 ml Documented By: KEVIN Thiamine HCl (Thiamine Hcl 100 Mg Tablet) 100 mg PO DAILY [facility] Last Admin: 12/01/23 08:20 Dose: 100 mg Documented By: KATHIE Labs 12/01/23 06:43 12/02/23 08:07 Labs: Laboratory Results - last 24 hr 12/02/23 08:07 Hold Purple Top SEE NOTE Anion Gap 12 Estim Creat Clear Calc 236.8 Estimated GFR > 60 Random Glucose 93 Calcium 8.1 L Total Bilirubin 14.4 H Direct Bilirubin 10.3 H AST 144 H ALT 84 H Alkaline Phosphatase 201 H Total Protein 4.8 L Albumin 2.9 L Procedures Date of Service Date of Service: 12/02/23 Progress Note: A&P Assessment and plan (1) Acute alcoholic liver disease: Status: Acute Plan HIDA shows filling of GB (official read pending), goes against dx of acute cholecystitis. Wall thickening likely due to liver disease, distention may be secondary to poor oral intake and lack of GB emptying. Advance as tolerated. Will sign off. Can reevaluate as needed. Time Spent With Patient Time: Total time managing care of this patient today ____ minutes. Quality Stroke Does the patient have a stroke diagnosis?: No VTE Prior VTE?: No VTE Risk Level:: Medical - moderate - high VTE Device Contraindication: N/A - Device Ordered VTE Drug Contraindication: Treatment Not Indicated
[2023-12-02] MEDS: Thiamine HCL 100 MG TABLET PO (13:47)
[2023-12-02] MEDS: Gabapentin 100 MG CAPSULE PO ×2 (13:47→21:35)
[2023-12-02] MEDS: Folic Acid 1 MG TABLET PO (13:47)
[2023-12-02] MEDS: predniSONE 20 MG TABLET 40 MG PO (13:47)
[2023-12-02] MEDS: Apixaban 5 MG TABLET PO ×2 (13:48→21:35)
[2023-12-02] MEDS: Multivitamin TABLET 1 TAB PO (13:48)
[2023-12-02] MEDS: PHENobarbitaL 15 MG TABLET PO ×2 (13:48→21:35)
[2023-12-02] MEDS: Omeprazole 20 MG CAPSULE.DR PO (13:48)
[2023-12-02] MEDS: Nicotine 14 MG PATCH.TD24 TRANSDERMA (13:49)
[2023-12-02] MEDS: 0.9 % Sodium Chloride Flush 3 ML SYRINGE IVFLUSH ×3 (13:49→21:35)
[2023-12-02] MEDS: atenoloL 25 MG TABLET PO (13:49)
[2023-12-02] MEDS: Buprenorphine/Naloxone 2/0.5mg FILM 1 FILM SUBLINGUAL (13:50)
[2023-12-02] MEDS: Lactulose 20 GM/30 ML SOLUTION PO ×2 (13:50→21:35)
--- NOTE | 2023-12-02 13:58 | MHC.CM.PN ---
EMR REVIEWED AND PER MD ROUNDS, PT IS NOT MEDICALLY CLEARED FOR DC (AWAITING HIDA SCAN RESULTS, ABD. PAIN PERSISTS) CM WILL CONTINUE TO FOLLOW FOR ANY CHANGE TO DC NEEDS/PLAN.
--- NOTE | 2023-12-02 15:02 | HO.PM.IMPN ---
Subjective Subjective Date of Service: 12/02/23 Interval History: Being followed for acute hepatitis Complaining of persistent abdominal pain, complaints that he is being woken up frequently, denies fever, no chills, no nausea, no vomiting. Review of Systems All other system reviewed and are negative Physical Exam Vital Signs: Vital Signs: Last Vital Signs Temp 97.4 F 12/02/23 07:59 Pulse 60 12/02/23 07:59 Resp 16 12/02/23 07:59 BP 105/65 12/02/23 07:59 Pulse Ox 94 12/02/23 07:59 O2 Del Method Room Air 12/02/23 07:59 BMI result Body Mass Index 29.4 Const: Other: General resting comfortably in no acute distress. icteric sclera Neck is supple no JVD. CVS regular rate rhythm, Respiratory lungs clear to auscultation, no respiratory distress, no wheeze, no rhonchi. Gastrointestinal abdomen soft, persistent ruq , mid abdomen and left upper quadrant tenderness, no rebound, no rigidity Neuro non focal Skin jaundiced Appropriate affect Objective Data Active Medications Acetaminophen (Acetaminophen 325 Mg Tablet) 650 mg PO Q6H PRN PRN Reason: Pain, Mild (Pain Scale 1-3), fever or headache Apixaban (Apixaban 5 Mg Tablet) 5 mg PO BID [facility] Last Admin: 12/02/23 13:48 Dose: 5 mg Documented By: DEVORA Atenolol (Atenolol 25 Mg Tablet) 25 mg PO DAILY [facility]; Protocol Last Admin: 12/02/23 13:49 Dose: 25 mg Documented By: DEVORA Buprenorphine/Naloxone (Buprenorphine/Naloxone 2/0.5mg Film) 1 film SUBLINGUAL DAILY [facility] Last Admin: 12/02/23 13:50 Dose: 1 film Documented By: DEVORA Calcium Carbonate (Calcium Carbonate 750 Mg Tab.Chew) 750 mg PO Q4H PRN PRN Reason: Heartburn Folic Acid (Folic Acid 1 Mg Tablet) 1 mg PO DAILY [facility] Last Admin: 12/02/23 13:47 Dose: 1 mg Documented By: DEVORA Gabapentin (Gabapentin 100 Mg Capsule) 100 mg PO BID [facility] Last Admin: 12/02/23 13:47 Dose: 100 mg Documented By: DEVORA Metronidazole (Flagyl) 500 mg in 100 mls @ 100 mls/hr IV Q8H [facility] Last Admin: 12/02/23 13:50 Dose: 100 mls/hr Documented By: DEVORA Lactulose (Lactulose 20 Gm/30 Ml Solution) 20 gm PO BID [facility] Last Admin: 12/02/23 13:50 Dose: 20 gm Documented By: DEVORA Lorazepam (Lorazepam 1 Mg Tablet) 1 mg PO TID PRN PRN Reason: anxiety Last Admin: 12/01/23 21:26 Dose: 1 mg Documented By: KEVIN Magnesium Hydroxide (Milk Of Magnesia 30 Ml Oral.Susp) 30 ml PO DAILY PRN PRN Reason: Constipation Melatonin (Melatonin 3 Mg Tablet) 6 mg PO BEDTIME PRN PRN Reason: Insomnia Last Admin: 12/01/23 21:24 Dose: 6 mg Documented By: KEVIN Multivitamins/Vitamin C (Multivitamin Tablet) 1 tab PO DAILY [facility] Last Admin: 12/02/23 13:48 Dose: 1 tab Documented By: DEVORA Nicotine (Nicotine 14 Mg Patch.Td24) 14 mg TRANSDERMA DAILY [facility] Last Admin: 12/02/23 13:49 Dose: 14 mg Documented By: DEVORA Omeprazole (Omeprazole 20 Mg Capsule.Dr) 20 mg PO DAILY [facility] Last Admin: 12/02/23 13:48 Dose: 20 mg Documented By: DEVORA Ondansetron HCl (Ondansetron Hcl 4 Mg/2 Ml Vial) 4 mg IVPUSH Q8H PRN PRN Reason: Nausea and Vomiting Pharmacy Consult (Consult Rx Etoh Phenob Im/Po) 1 each MISCELLANE ONCE PRN; Protocol PRN Reason: Consult order Phenobarbital (Phenobarbital 15 Mg Tablet) 15 mg PO BID@1000,2200 [facility] Stop: 12/03/23 22:01 Last Admin: 12/02/23 13:48 Dose: 15 mg Documented By: DEVORA Prednisone (Prednisone 20 Mg Tablet) 40 mg PO DAILY [facility] Stop: 12/04/23 00:39 Last Admin: 12/02/23 13:47 Dose: 40 mg Documented By: DEVORA Senna (Sennosides 8.6 Mg Tablet) 17.2 mg PO BEDTIME PRN PRN Reason: constipation Sodium Chloride (0.9 % Sodium Chloride Flush 3 Ml Syringe) 3 ml IVFLUSH QSHIFT [facility] Last Admin: 12/02/23 13:49 Dose: 3 ml Documented By: DEVORA Thiamine HCl (Thiamine Hcl 100 Mg Tablet) 100 mg PO DAILY [facility] Last Admin: 12/02/23 13:47 Dose: 100 mg Documented By: DEVORA Labs 12/01/23 06:43 12/02/23 08:07 Labs: Laboratory Results - last 24 hr 12/02/23 08:07 Hold Purple Top SEE NOTE Anion Gap 12 Estim Creat Clear Calc 236.8 Estimated GFR > 60 Random Glucose 93 Calcium 8.1 L Total Bilirubin 14.4 H Direct Bilirubin 10.3 H AST 144 H ALT 84 H Alkaline Phosphatase 201 H Total Protein 4.8 L Albumin 2.9 L Assessment and Plan (1) Acute alcoholic liver disease: Status: Acute Plan 33-year-old male with pertinent history of alcohol use disorder, history of DVT on Eliquis, mood disorder, peripheral neuropathy, gastroesophageal reflux disease who presents to the emergency department for evaluation of yellowing of eyes. Alcoholic hepatitis Total bili and liver enzymes slowly trending down, persistent abdominal pain,no fevers, no leukocytosis Hepatic steatosis with lesions noted on CT abdomen and pelvis. Hepatitis serology nonreactive, HIV nonreactive on po prednisone (started 11/28/23). No encephalopathy. MRI abdomen obtained to follow-up on liver lesions,it showed peripancreatic fluid and fat stranding suspicious for acute interstitial pancreatitis, cholelithiasis with a distended gallbladder, with gallbladder wall thickening and edema do nonspecific in the setting of underlying liver disease but constellation of findings raises possibility of acute cholecystitis, no intra or extrahepatic biliary ductal dilatation, hepatomegaly and marked hepatic steatosis previously described low-attenuation liver lesions correspond to focus of focal fat, reactive gastrohepatic, ernestine hepatic and retroperitoneal lymph nodes. Small volume ascites and moderate anasarca also noted. HIDA report pending, preliminary report showed filling of gallbladder less likely acute cholecystitis likely gallbladder swelling due to underlying liver disease, also no fevers and normal WBC against diagnosis of acute cholecystitis Continue High-protein diet/supportive care and prednisone Recommend complete abstinence from alcohol. Encourage out of bed to chair and ambulation to UTI Initially felt to have UTI however urine culture grew mixed bacterial francis therefore discontinued IV antibiotics Hypokalemia Replete and follow labs Alcohol use disorder Continue Phenobarb protocol on thiamine, folic acid and multivitamin. seen by recovery team, written resources including information on inpatient and outpatient treatment, harm reduction and recovery coaching provided. Hypomagnesemia due to alcohol use Repleted Hyperammonemia due to alcohol use. Ammonia 63 improved to 46, continue Lactulose Thrombocytopenia In the setting of alcoholism, platelets returned to baseline after stopping ceftriaxone. History of DVT On Eliquis, will discuss with Hematology for continued use of Eliquis for thrombophlebitis Mood disorder Continue home mood stabilizers Peripheral neuropathy on Gabapentin Gastroesophageal reflux disease On PPI Tobacco use disorder on nicotine patch DVT prophylaxis on Eliquis Full code Patient need continued inpatient hospitalization for close monitoring of alcoholic liver disease, further workup and expert consultation for acute cholecystitis Quality Stroke Does the patient have a stroke diagnosis?: No VTE Prior VTE?: No VTE Risk Level:: Medical - moderate - high VTE Device Contraindication: N/A - Device Ordered VTE Drug Contraindication: Treatment Not Indicated
[2023-12-02 15:25] VITALS: BP 125/85; PULSE 77; RESP 18; TEMP 36.4; O2SAT 97
[2023-12-02] MEDS: Potassium Chloride ER 20 MEQ TAB.ER.PRT 40 MEQ PO (15:57)
[2023-12-02] MEDS: LORazepam 0.5 MG TABLET PO (16:05)
[2023-12-02 19:11] VITALS: BP 104/64; PULSE 68; RESP 18; TEMP 36.5; O2SAT 94
[2023-12-02] MEDS: Melatonin 3 MG TABLET 6 MG PO (21:35)
[2023-12-03] MEDS: LORazepam 0.5 MG TABLET PO ×3 (01:25→20:07)
[2023-12-03 03:54] VITALS: BP 122/75; PULSE 60; RESP 16; TEMP 36.6; O2SAT 98
[2023-12-03 07:23] VITALS: BP 103/64; PULSE 58; RESP 14; TEMP 36.2; O2SAT 96
[2023-12-03] MEDS: Buprenorphine/Naloxone 2/0.5mg FILM 1 FILM SUBLINGUAL (08:32)
[2023-12-03] MEDS: Gabapentin 100 MG CAPSULE PO ×2 (08:33→20:07)
[2023-12-03] MEDS: Apixaban 5 MG TABLET PO ×2 (08:33→20:07)
[2023-12-03] MEDS: Nicotine 14 MG PATCH.TD24 TRANSDERMA (08:33)
[2023-12-03] MEDS: Omeprazole 20 MG CAPSULE.DR PO (08:33)
[2023-12-03] MEDS: predniSONE 20 MG TABLET 40 MG PO (08:33)
[2023-12-03] MEDS: Acetaminophen 325 MG TABLET 650 MG PO (08:33)
[2023-12-03] MEDS: Multivitamin TABLET 1 TAB PO (08:33)
[2023-12-03] MEDS: Folic Acid 1 MG TABLET PO (08:33)
[2023-12-03] MEDS: 0.9 % Sodium Chloride Flush 3 ML SYRINGE IVFLUSH ×3 (08:34→20:08)
[2023-12-03] MEDS: PHENobarbitaL 15 MG TABLET PO ×2 (08:34→20:07)
[2023-12-03] MEDS: Thiamine HCL 100 MG TABLET PO (08:38)
--- NOTE | 2023-12-03 11:05 | P.PNIM_ITS ---
Subjective Subjective Date of Service: 12/03/23 Interval History: Complaining of intermittent headache, right upper quadrant abdominal pain is better, complaining of left-sided abdominal pain, having 3-4 bowel movements a day, denies nausea, no vomiting tolerating diet, no fevers no chills no other acute issues. Review of Systems All other system reviewed and are negative. Physical Exam 2 Vital Signs: Vital Signs: Last Vital Signs Temp 97.2 F 12/03/23 07:23 Pulse 58 12/03/23 07:23 Resp 14 12/03/23 07:23 BP 103/64 12/03/23 07:23 Pulse Ox 96 12/03/23 07:23 O2 Del Method Room Air 12/03/23 07:23 BMI result Body Mass Index 29.4 Const: Other: General resting comfortably in no acute distress. icteric sclera Neck is supple no JVD. CVS regular rate rhythm, Respiratory lungs clear to auscultation, no respiratory distress, no wheeze, no rhonchi. Gastrointestinal abdomen soft, left upper quadrant tenderness, no rebound, no rigidity Neuro non focal Skin jaundiced Appropriate affect Objective Data Active Medications Acetaminophen (Acetaminophen 325 Mg Tablet) 650 mg PO Q6H PRN PRN Reason: Pain, Mild (Pain Scale 1-3), fever or headache Last Admin: 12/03/23 08:33 Dose: 650 mg Documented By: TRACEE Apixaban (Apixaban 5 Mg Tablet) 5 mg PO BID [facility] Last Admin: 12/03/23 08:33 Dose: 5 mg Documented By: TRACEE Atenolol (Atenolol 25 Mg Tablet) 25 mg PO DAILY [facility]; Protocol Last Admin: 12/03/23 07:30 Dose: Not Given Documented By: TRACEE Non-Admin Reason: Decreased Heart Rate Buprenorphine/Naloxone (Buprenorphine/Naloxone 2/0.5mg Film) 1 film SUBLINGUAL DAILY [facility] Last Admin: 12/03/23 08:32 Dose: 1 film Documented By: TRACEE Calcium Carbonate (Calcium Carbonate 750 Mg Tab.Chew) 750 mg PO Q4H PRN PRN Reason: Heartburn Folic Acid (Folic Acid 1 Mg Tablet) 1 mg PO DAILY [facility] Last Admin: 12/03/23 08:33 Dose: 1 mg Documented By: TRACEE Gabapentin (Gabapentin 100 Mg Capsule) 100 mg PO BID [facility] Last Admin: 12/03/23 08:33 Dose: 100 mg Documented By: TRACEE Lactulose (Lactulose 20 Gm/30 Ml Solution) 20 gm PO BID [facility] Last Admin: 12/03/23 08:27 Dose: Not Given Documented By: TRACEE Non-Admin Reason: Physician Held Med Lorazepam (Lorazepam 0.5 Mg Tablet) 0.5 mg PO TID PRN PRN Reason: anxiety Last Admin: 12/03/23 09:16 Dose: 0.5 mg Documented By: TRACEE Magnesium Hydroxide (Milk Of Magnesia 30 Ml Oral.Susp) 30 ml PO DAILY PRN PRN Reason: Constipation Melatonin (Melatonin 3 Mg Tablet) 6 mg PO BEDTIME PRN PRN Reason: Insomnia Last Admin: 12/02/23 21:35 Dose: 6 mg Documented By: CASTILYomaira Multivitamins/Vitamin C (Multivitamin Tablet) 1 tab PO DAILY [facility] Last Admin: 12/03/23 08:33 Dose: 1 tab Documented By: TRACEE Nicotine (Nicotine 14 Mg Patch.Td24) 14 mg TRANSDERMA DAILY [facility] Last Admin: 12/03/23 08:33 Dose: 14 mg Documented By: TRACEE Omeprazole (Omeprazole 20 Mg Capsule.Dr) 20 mg PO DAILY [facility] Last Admin: 12/03/23 08:33 Dose: 20 mg Documented By: TRACEE Ondansetron HCl (Ondansetron Hcl 4 Mg/2 Ml Vial) 4 mg IVPUSH Q8H PRN PRN Reason: Nausea and Vomiting Pharmacy Consult (Consult Rx Etoh Phenob Im/Po) 1 each MISCELLANE ONCE PRN; Protocol PRN Reason: Consult order Phenobarbital (Phenobarbital 15 Mg Tablet) 15 mg PO BID@1000,2200 [facility] Stop: 12/03/23 22:01 Last Admin: 12/03/23 08:34 Dose: 15 mg Documented By: TRACEE Prednisone (Prednisone 20 Mg Tablet) 40 mg PO DAILY [facility] Stop: 12/04/23 00:39 Last Admin: 12/03/23 08:33 Dose: 40 mg Documented By: TRACEE Senna (Sennosides 8.6 Mg Tablet) 17.2 mg PO BEDTIME PRN PRN Reason: constipation Sodium Chloride (0.9 % Sodium Chloride Flush 3 Ml Syringe) 3 ml IVFLUSH QSHIFT [facility] Last Admin: 12/03/23 08:34 Dose: 3 ml Documented By: TRACEE Thiamine HCl (Thiamine Hcl 100 Mg Tablet) 100 mg PO DAILY [facility] Last Admin: 12/03/23 08:38 Dose: 100 mg Documented By: TRACEE Labs 12/01/23 06:43 12/02/23 08:07 Assessment and Plan (1) Acute alcoholic liver disease: Status: Acute (2) Hyperammonemia: Status: Acute Plan 33-year-old male with pertinent history of alcohol use disorder, history of DVT on Eliquis, mood disorder, peripheral neuropathy, gastroesophageal reflux disease who presents to the emergency department for evaluation of yellowing of eyes. Alcoholic hepatitis Total bili and liver enzymes slowly trending down, persistent abdominal pain,no fevers, no leukocytosis Hepatic steatosis with lesions noted on CT abdomen and pelvis. Hepatitis serology nonreactive, HIV nonreactive on po prednisone (started 11/28/23). No encephalopathy. MRI abdomen obtained to follow-up on liver lesions,it showed peripancreatic fluid and fat stranding suspicious for acute interstitial pancreatitis, cholelithiasis with a distended gallbladder, with gallbladder wall thickening and edema do nonspecific in the setting of underlying liver disease but constellation of findings raises possibility of acute cholecystitis, no intra or extrahepatic biliary ductal dilatation, hepatomegaly and marked hepatic steatosis previously described low-attenuation liver lesions correspond to focus of focal fat, reactive gastrohepatic, ernestine hepatic and retroperitoneal lymph nodes. Small volume ascites and moderate anasarca also noted. HIDA scan ruled out acute cholecystitis Continue High-protein diet/supportive care and prednisone Will discuss with GI on 12/03 after 1 week of steroids regarding further treatment plan and follow-up Recommend complete abstinence from alcohol. Encourage out of bed to chair and ambulation UTI Initially felt to have UTI however urine culture grew mixed bacterial francis therefore discontinued IV antibiotics Hypokalemia Replete and follow labs Alcohol use disorder Continue Phenobarb protocol on thiamine, folic acid and multivitamin. seen by recovery team, written resources including information on inpatient and outpatient treatment, harm reduction and recovery coaching provided. Hypomagnesemia due to alcohol use Repleted Hyperammonemia due to alcohol use. Ammonia 63 improved to 46, having 3-4 bowel movements per day decrease dose of lactulose to 20 g daily Thrombocytopenia In the setting of alcoholism, platelets returned to baseline after stopping ceftriaxone. History of DVT On Eliquis, will discuss with Hematology for continued use of Eliquis for thrombophlebitis Mood disorder Continue home mood stabilizers Peripheral neuropathy on Gabapentin Gastroesophageal reflux disease On PPI Tobacco use disorder on nicotine patch DVT prophylaxis on Eliquis Full code Patient need continued inpatient hospitalization for close monitoring of alcoholic liver disease. Quality Stroke Does the patient have a stroke diagnosis?: No VTE Prior VTE?: No VTE Risk Level:: Medical - moderate - high VTE Device Contraindication: N/A - Device Ordered VTE Drug Contraindication: Treatment Not Indicated
[2023-12-03] MEDS: Potassium Chloride ER 20 MEQ TAB.ER.PRT PO (11:43)
[2023-12-03 15:28] VITALS: BP 111/71; PULSE 59; RESP 16; TEMP 36.3; O2SAT 96
[2023-12-03 19:24] VITALS: BP 110/67; PULSE 63; RESP 14; TEMP 36.4; O2SAT 97
[2023-12-03] MEDS: Melatonin 3 MG TABLET 6 MG PO (20:07)
[2023-12-04] MEDS: Acetaminophen 325 MG TABLET 650 MG PO (00:46)
[2023-12-04] MEDS: LORazepam 0.5 MG TABLET PO ×3 (02:44→20:33)
[2023-12-04 02:45] VITALS: BP 111/73; PULSE 54; RESP 16; TEMP 36.4; O2SAT 97
[2023-12-04 06:28] LABS: Alanine Aminotransferase 88 U/L (0-40); Albumin Level 2.6 g/dL (3.5-5.0); Alkaline Phosphatase 184 U/L (39-117); Anion Gap 11 (12-20); Aspartate Amino Transferase 124 U/L (5-37); Bilirubin Direct 8.8 mg/dL (0.0-0.5); Bilirubin Total 12.3 mg/dL (0.0-1.0); Blood Urea Nitrogen 5 mg/dL (9-16); Calcium 8.1 mg/dL (8.4-10.2); Carbon Dioxide 26 mmol/L (22-29); Chloride 104 mmol/L (96-108); Creatinine Clr Calc Pharmacy 224.9; Estimated Glomerular Filt Rate > 60; Glucose Random 100 mg/dL (60-115); Potassium 3.7 mmol/L (3.3-5.1); Sodium 137 mmol/L (135-145); Total Protein 4.5 g/dL (6.5-8.0)
[2023-12-04 07:19] VITALS: BP 107/66; PULSE 56; RESP 17; TEMP 37.1; O2SAT 94
[2023-12-04] MEDS: 0.9 % Sodium Chloride Flush 3 ML SYRINGE IVFLUSH ×2 (09:14→20:35)
[2023-12-04 09:15] VITALS: BP 107/66; PULSE 56
[2023-12-04] MEDS: atenoloL 25 MG TABLET PO (09:15)
[2023-12-04] MEDS: Folic Acid 1 MG TABLET PO (09:15)
[2023-12-04] MEDS: Apixaban 5 MG TABLET PO ×2 (09:15→20:33)
[2023-12-04] MEDS: Buprenorphine/Naloxone 2/0.5mg FILM 1 FILM SUBLINGUAL (09:15)
[2023-12-04] MEDS: Lactulose 20 GM/30 ML SOLUTION PO (09:15)
[2023-12-04] MEDS: Nicotine 14 MG PATCH.TD24 TRANSDERMA (09:15)
[2023-12-04] MEDS: Omeprazole 20 MG CAPSULE.DR PO (09:15)
[2023-12-04] MEDS: Gabapentin 100 MG CAPSULE PO ×2 (09:16→20:33)
[2023-12-04] MEDS: Multivitamin TABLET 1 TAB PO (09:17)
[2023-12-04] MEDS: Thiamine HCL 100 MG TABLET PO (09:17)
--- NOTE | 2023-12-04 11:14 | HO.PM.IMPN ---
Subjective Subjective Date of Service: 12/04/23 Interval History: No new complaints remains frustrated that he was woken up several times at night, feels abdominal pain is improving, no diarrhea tolerating diet no nausea, no vomiting or abdominal pain no acute issues overnight, has been out of bed and ambulating. Review of Systems All other system reviewed and are negative. Physical Exam Vital Signs: Vital Signs: Last Vital Signs Temp 98.8 F 12/04/23 07:19 Pulse 56 12/04/23 09:15 Resp 17 12/04/23 07:19 BP 107/66 12/04/23 09:15 Pulse Ox 94 12/04/23 07:19 O2 Del Method Room Air 12/04/23 07:19 BMI result Body Mass Index 29.4 Const: Other: General resting comfortably in no acute distress. icteric sclera Neck is supple no JVD. CVS regular rate rhythm, Respiratory lungs clear to auscultation, no respiratory distress, no wheeze, no rhonchi. Gastrointestinal abdomen soft,mild left upper quadrant tenderness, no rebound, no rigidity Neuro non focal Extremities edema resolved Skin jaundiced Appropriate affect Objective Data Active Medications Acetaminophen (Acetaminophen 325 Mg Tablet) 650 mg PO Q6H PRN PRN Reason: Pain, Mild (Pain Scale 1-3), fever or headache Last Admin: 12/04/23 00:46 Dose: 650 mg Documented By: TOMA Apixaban (Apixaban 5 Mg Tablet) 5 mg PO BID [facility] Last Admin: 12/04/23 09:15 Dose: 5 mg Documented By: ALBINO Atenolol (Atenolol 25 Mg Tablet) 25 mg PO DAILY [facility]; Protocol Last Admin: 12/04/23 09:15 Dose: 25 mg Documented By: ALBINO Buprenorphine/Naloxone (Buprenorphine/Naloxone 2/0.5mg Film) 1 film SUBLINGUAL DAILY [facility] Last Admin: 12/04/23 09:15 Dose: 1 film Documented By: ALBINO Calcium Carbonate (Calcium Carbonate 750 Mg Tab.Chew) 750 mg PO Q4H PRN PRN Reason: Heartburn Folic Acid (Folic Acid 1 Mg Tablet) 1 mg PO DAILY [facility] Last Admin: 12/04/23 09:15 Dose: 1 mg Documented By: ALBINO Gabapentin (Gabapentin 100 Mg Capsule) 100 mg PO BID [facility] Last Admin: 12/04/23 09:16 Dose: 100 mg Documented By: ALBINO Lactulose (Lactulose 20 Gm/30 Ml Solution) 20 gm PO DAILY [facility] Last Admin: 12/04/23 09:15 Dose: 20 gm Documented By: ALBINO Lorazepam (Lorazepam 0.5 Mg Tablet) 0.5 mg PO TID PRN PRN Reason: anxiety Last Admin: 12/04/23 02:44 Dose: 0.5 mg Documented By: TOMA Magnesium Hydroxide (Milk Of Magnesia 30 Ml Oral.Susp) 30 ml PO DAILY PRN PRN Reason: Constipation Melatonin (Melatonin 3 Mg Tablet) 6 mg PO BEDTIME PRN PRN Reason: Insomnia Last Admin: 12/03/23 20:07 Dose: 6 mg Documented By: ARJUN Multivitamins/Vitamin C (Multivitamin Tablet) 1 tab PO DAILY [facility] Last Admin: 12/04/23 09:17 Dose: 1 tab Documented By: ALBINO Nicotine (Nicotine 14 Mg Patch.Td24) 14 mg TRANSDERMA DAILY [facility] Last Admin: 12/04/23 09:15 Dose: 14 mg Documented By: ALBINO Omeprazole (Omeprazole 20 Mg Capsule.Dr) 20 mg PO DAILY [facility] Last Admin: 12/04/23 09:15 Dose: 20 mg Documented By: ALBINO Ondansetron HCl (Ondansetron Hcl 4 Mg/2 Ml Vial) 4 mg IVPUSH Q8H PRN PRN Reason: Nausea and Vomiting Pharmacy Consult (Consult Rx Etoh Phenob Im/Po) 1 each MISCELLANE ONCE PRN; Protocol PRN Reason: Consult order Senna (Sennosides 8.6 Mg Tablet) 17.2 mg PO BEDTIME PRN PRN Reason: constipation Sodium Chloride (0.9 % Sodium Chloride Flush 3 Ml Syringe) 3 ml IVFLUSH QSHIFT [facility] Last Admin: 12/04/23 09:14 Dose: 3 ml Documented By: ALBINO Thiamine HCl (Thiamine Hcl 100 Mg Tablet) 100 mg PO DAILY [facility] Last Admin: 12/04/23 09:17 Dose: 100 mg Documented By: ALBINO Labs 12/01/23 06:43 12/04/23 05:59 Labs: Laboratory Results - last 24 hr 12/04/23 05:59 Hold Purple Top SEE NOTE Anion Gap 11 L Estim Creat Clear Calc 224.9 Estimated GFR > 60 Random Glucose 100 Calcium 8.1 L Total Bilirubin 12.3 H Direct Bilirubin 8.8 H AST 124 H ALT 88 H Alkaline Phosphatase 184 H Total Protein 4.5 L Albumin 2.6 L Hold Yellow Top See Note Assessment and Plan (1) Acute alcoholic liver disease: Status: Acute (2) Hyperammonemia: Status: Acute (3) Conjugated hyperbilirubinemia: Status: Acute Plan 33-year-old male with pertinent history of alcohol use disorder, history of DVT on Eliquis, mood disorder, peripheral neuropathy, gastroesophageal reflux disease who presents to the emergency department for evaluation of yellowing of eyes. Alcoholic hepatitis Total bili and liver enzymes slowly trending down, abdominal pain improving,no fevers, no leukocytosis Hepatic steatosis with lesions noted on CT abdomen and pelvis. Hepatitis serology nonreactive, HIV nonreactive on po prednisone (started 11/28/23). No encephalopathy. MRI abdomen obtained to follow-up on liver lesions,it showed peripancreatic fluid and fat stranding suspicious for acute interstitial pancreatitis, cholelithiasis with a distended gallbladder, with gallbladder wall thickening and edema do nonspecific in the setting of underlying liver disease but constellation of findings raises possibility of acute cholecystitis, no intra or extrahepatic biliary ductal dilatation, hepatomegaly and marked hepatic steatosis previously described low-attenuation liver lesions correspond to focus of focal fat, reactive gastrohepatic, ernestine hepatic and retroperitoneal lymph nodes. Small volume ascites and moderate anasarca also noted. HIDA scan ruled out acute cholecystitis Continue High-protein diet/supportive care and prednisone Will discuss with GI on 12/03 after 1 week of steroids regarding further treatment plan and follow-up Recommend complete abstinence from alcohol. Encourage ambulation UTI Initially felt to have UTI however urine culture grew mixed bacterial francis therefore discontinued IV antibiotics Hypokalemia Replete and follow labs Alcohol use disorder Continue Phenobarb protocol on thiamine, folic acid and multivitamin. seen by recovery team, written resources including information on inpatient and outpatient treatment, harm reduction and recovery coaching provided. Hypomagnesemia due to alcohol use Repleted Hyperammonemia due to alcohol use. Ammonia 63 improved to 46, having 3-4 bowel movements per day decrease dose of lactulose to 20 g daily Thrombocytopenia In the setting of alcoholism, platelets returned to baseline after stopping ceftriaxone. History of DVT On Eliquis, will discuss with Hematology for continued use of Eliquis for thrombophlebitis Mood disorder Continue home mood stabilizers Peripheral neuropathy on Gabapentin Gastroesophageal reflux disease On PPI Tobacco use disorder on nicotine patch DVT prophylaxis on Eliquis Full code Patient need continued inpatient hospitalization for close monitoring of alcoholic liver disease. Quality Stroke Does the patient have a stroke diagnosis?: No VTE Prior VTE?: No VTE Risk Level:: Medical - moderate - high VTE Device Contraindication: N/A - Device Ordered VTE Drug Contraindication: Treatment Not Indicated
[2023-12-04 15:08] VITALS: BP 109/68; PULSE 68; RESP 16; TEMP 36.2; O2SAT 98
[2023-12-04 18:56] VITALS: BP 124/69; PULSE 68; RESP 18; TEMP 36.2; O2SAT 96
[2023-12-04] MEDS: Melatonin 3 MG TABLET 6 MG PO (20:33)
[2023-12-05 03:51] VITALS: BP 109/62; PULSE 75; RESP 16; TEMP 37; O2SAT 92
[2023-12-05 07:53] VITALS: BP 116/63; PULSE 80; RESP 18; TEMP 37.2; O2SAT 94
[2023-12-05] MEDS: Omeprazole 20 MG CAPSULE.DR PO (08:14)
[2023-12-05] MEDS: Thiamine HCL 100 MG TABLET PO (08:14)
[2023-12-05] MEDS: Folic Acid 1 MG TABLET PO (08:14)
[2023-12-05] MEDS: Apixaban 5 MG TABLET PO ×2 (08:14→19:59)
[2023-12-05] MEDS: Multivitamin TABLET 1 TAB PO (08:14)
[2023-12-05] MEDS: Gabapentin 100 MG CAPSULE PO ×2 (08:14→19:59)
[2023-12-05] MEDS: atenoloL 25 MG TABLET PO (08:14)
[2023-12-05] MEDS: Nicotine 14 MG PATCH.TD24 TRANSDERMA (08:15)
[2023-12-05] MEDS: LORazepam 0.5 MG TABLET PO ×2 (08:18→16:31)
[2023-12-05] MEDS: 0.9 % Sodium Chloride Flush 3 ML SYRINGE IVFLUSH ×2 (08:20→16:31)
[2023-12-05 09:54] LABS: Alanine Aminotransferase 95 U/L (0-40); Albumin Level 2.8 g/dL (3.5-5.0); Alkaline Phosphatase 187 U/L (39-117); Aspartate Amino Transferase 142 U/L (5-37); Bilirubin Direct 10.6 mg/dL (0.0-0.5); Total Protein 4.7 g/dL (6.5-8.0)
[2023-12-05] MEDS: Buprenorphine/Naloxone 2/0.5mg FILM 1 FILM SUBLINGUAL (12:30)
--- NOTE | 2023-12-05 12:33 | MHC.PIE ---
Patient was anxious this am and requested Ativan to sleep. He refused Suboxone at that time, given late at 1230 per patient request. Refused Lactulose. Liver enzymes elevated. GI following
[2023-12-05] MEDS: Phytonadione (Vit K1) Oral 10 MG/ML AMPUL 5 MG PO (14:28)
[2023-12-05 15:42] VITALS: BP 121/76; PULSE 77; RESP 18; TEMP 36; O2SAT 95
--- NOTE | 2023-12-05 16:21 | P.PNIM_ITS ---
Subjective Subjective Date of Service: 12/05/23 Interval History: Feeling better this morning, abdominal pain have significantly improved, no nausea, no vomiting, tolerating diet, no further episodes of diarrhea, no fevers, no chills ,ambulating in room. Wants to sleep/frustrated for being woken several times at night for vitals Review of Systems All other system reviewed and are negative. Physical Exam 2 Vital Signs: Vital Signs: Last Vital Signs Temp 96.8 F 12/05/23 15:42 Pulse 77 12/05/23 15:42 Resp 18 12/05/23 15:42 BP 121/76 12/05/23 15:42 Pulse Ox 95 12/05/23 15:42 O2 Del Method Room Air 12/05/23 15:42 BMI result Body Mass Index 29.4 Const: Other: General resting comfortably in no acute distress. icteric sclera Neck is supple no JVD. CVS regular rate rhythm, Respiratory lungs clear to auscultation, no respiratory distress, no wheeze, no rhonchi. Gastrointestinal abdomen soft,mild left upper quadrant tenderness, no rebound, no rigidity Neuro non focal Extremities edema resolved Skin jaundiced Appropriate affect Objective Data Active Medications Acetaminophen (Acetaminophen 325 Mg Tablet) 500 mg PO Q8H PRN PRN Reason: Pain, Mild (Pain Scale 1-3), fever or headache Apixaban (Apixaban 5 Mg Tablet) 5 mg PO BID [facility] Last Admin: 12/05/23 08:14 Dose: 5 mg Documented By: MARIA R Atenolol (Atenolol 25 Mg Tablet) 25 mg PO DAILY [facility]; Protocol Last Admin: 12/05/23 08:14 Dose: 25 mg Documented By: MARIA R Buprenorphine/Naloxone (Buprenorphine/Naloxone 2/0.5mg Film) 1 film SUBLINGUAL DAILY [facility] Last Admin: 12/05/23 12:30 Dose: 1 film Documented By: MARIA R Calcium Carbonate (Calcium Carbonate 750 Mg Tab.Chew) 750 mg PO Q4H PRN PRN Reason: Heartburn Folic Acid (Folic Acid 1 Mg Tablet) 1 mg PO DAILY [facility] Last Admin: 12/05/23 08:14 Dose: 1 mg Documented By: MARIA R Gabapentin (Gabapentin 100 Mg Capsule) 100 mg PO BID [facility] Last Admin: 12/05/23 08:14 Dose: 100 mg Documented By: MARIA R Lactulose (Lactulose 20 Gm/30 Ml Solution) 20 gm PO DAILY [facility] Last Admin: 12/05/23 12:32 Dose: Not Given Documented By: MARIA R Non-Admin Reason: patient refused Lorazepam (Lorazepam 0.5 Mg Tablet) 0.5 mg PO TID PRN PRN Reason: anxiety Last Admin: 12/05/23 08:18 Dose: 0.5 mg Documented By: MARIA R Magnesium Hydroxide (Milk Of Magnesia 30 Ml Oral.Susp) 30 ml PO DAILY PRN PRN Reason: Constipation Melatonin (Melatonin 3 Mg Tablet) 6 mg PO BEDTIME PRN PRN Reason: Insomnia Last Admin: 12/04/23 20:33 Dose: 6 mg Documented By: VIRGINIA Multivitamins/Vitamin C (Multivitamin Tablet) 1 tab PO DAILY [facility] Last Admin: 12/05/23 08:14 Dose: 1 tab Documented By: MARIA R Nicotine (Nicotine 14 Mg Patch.Td24) 14 mg TRANSDERMA DAILY [facility] Last Admin: 12/05/23 08:15 Dose: 14 mg Documented By: MARIA R Omeprazole (Omeprazole 20 Mg Capsule.Dr) 20 mg PO DAILY [facility] Last Admin: 12/05/23 08:14 Dose: 20 mg Documented By: MARIA R Ondansetron HCl (Ondansetron Hcl 4 Mg/2 Ml Vial) 4 mg IVPUSH Q8H PRN PRN Reason: Nausea and Vomiting Pharmacy Consult (Consult Rx Etoh Phenob Im/Po) 1 each MISCELLANE ONCE PRN; Protocol PRN Reason: Consult order Phytonadione (Phytonadione (Vit K1) Oral 10 Mg/Ml Ampul) 5 mg PO DAILY [facility] Stop: 12/07/23 09:01 Last Admin: 12/05/23 14:28 Dose: 5 mg Documented By: MARIA R Senna (Sennosides 8.6 Mg Tablet) 17.2 mg PO BEDTIME PRN PRN Reason: constipation Sodium Chloride (0.9 % Sodium Chloride Flush 3 Ml Syringe) 3 ml IVFLUSH QSHIFT [facility] Last Admin: 12/05/23 08:20 Dose: 3 ml Documented By: MARIA R Thiamine HCl (Thiamine Hcl 100 Mg Tablet) 100 mg PO DAILY [facility] Last Admin: 12/05/23 08:14 Dose: 100 mg Documented By: MARIA R Labs 12/01/23 06:43 12/04/23 05:59 Labs: Laboratory Results - last 24 hr 12/05/23 08:58 Total Bilirubin 15.0 H Direct Bilirubin 10.6 H AST 142 H ALT 95 H Alkaline Phosphatase 187 H Total Protein 4.7 L Albumin 2.8 L Assessment and Plan (1) Acute alcoholic liver disease: Status: Acute (2) Hyperammonemia: Status: Acute (3) Conjugated hyperbilirubinemia: Status: Acute (4) Liver injury: Status: Acute Plan 33-year-old male with pertinent history of alcohol use disorder, history of DVT on Eliquis, mood disorder, peripheral neuropathy, gastroesophageal reflux disease who presents to the emergency department for evaluation of yellowing of eyes. Alcoholic hepatitis Total bili and liver enzymes were slowly trending down, but noted to have slight bump in total bili /lfts today, abdominal pain improving,no fevers, no leukocytosis Hepatic steatosis with lesions noted on CT abdomen and pelvis. Hepatitis serology nonreactive, HIV nonreactive was on po prednisone 40mg x1 week (started 11/28/23 ended 12/03) will resume prednsione 35mg today since showed improvement No encephalopathy. MRI abdomen obtained to follow-up on liver lesions,it showed peripancreatic fluid and fat stranding suspicious for acute interstitial pancreatitis, cholelithiasis with a distended gallbladder, with gallbladder wall thickening and edema do nonspecific in the setting of underlying liver disease but constellation of findings raises possibility of acute cholecystitis, no intra or extrahepatic biliary ductal dilatation, hepatomegaly and marked hepatic steatosis previously described low-attenuation liver lesions correspond to focus of focal fat, reactive gastrohepatic, ernestine hepatic and retroperitoneal lymph nodes. Small volume ascites and moderate anasarca also noted. HIDA scan ruled out acute cholecystitis Continue High-protein diet/supportive care and prednisone Left message with Dr. Barraza regarding further treatment plan and follow-up Recommend complete abstinence from alcohol. Vitamin K 5 mg by mouth t.i.d.starting today Encourage ambulation UTI Initially felt to have UTI however urine culture grew mixed bacterial francis therefore discontinued IV antibiotics Hypokalemia Repleted and normalized Alcohol use disorder Continue Phenobarb protocol on thiamine, folic acid and multivitamin. seen by recovery team, written resources including information on inpatient and outpatient treatment, harm reduction and recovery coaching provided. Hypomagnesemia due to alcohol use Repleted Hyperammonemia due to alcohol use. Ammonia 63 improved to 46, was having 3-4 bowel movements per day decrease dose of lactulose to 20 g daily but had no bm , therefore will place back on lactulose b.i.d. Thrombocytopenia In the setting of alcoholism, platelets returned to baseline after stopping ceftriaxone. History of DVT On Eliquis, outpatient follow-up with Dr. Irene for thrombophlebitis Mood disorder Continue home mood stabilizers Peripheral neuropathy on Gabapentin Gastroesophageal reflux disease On PPI Tobacco use disorder on nicotine patch DVT prophylaxis on Eliquis Full code Patient need continued inpatient hospitalization for close monitoring of alcoholic liver disease. Patient lives with fiancee his ambulatory and will be discharged to home when medically stable. Quality Stroke Does the patient have a stroke diagnosis?: No VTE Prior VTE?: No VTE Risk Level:: Medical - moderate - high VTE Device Contraindication: N/A - Device Ordered VTE Drug Contraindication: Treatment Not Indicated
[2023-12-05] MEDS: predniSONE 20 MG TABLET PO (17:25)
[2023-12-05] MEDS: predniSONE 5 MG TABLET PO (17:25)
[2023-12-05] MEDS: predniSONE 10 MG TABLET PO (17:26)
[2023-12-05] MEDS: Lactulose 20 GM/30 ML SOLUTION PO (19:58)
[2023-12-05] MEDS: Melatonin 3 MG TABLET 6 MG PO (19:59)
[2023-12-05 20:00] VITALS: BP 119/76; PULSE 75; RESP 20; TEMP 36.8; O2SAT 94
[2023-12-05] MEDS: Acetaminophen 325 MG TABLET 650 MG PO (20:11)
[2023-12-06] MEDS: LORazepam 0.5 MG TABLET PO ×3 (00:55→17:03)
[2023-12-06] MEDS: 0.9 % Sodium Chloride Flush 3 ML SYRINGE IVFLUSH ×4 (00:58→20:44)
--- NOTE | 2023-12-06 02:09 | PC.NURSE ---
Patient requested to take lactulose dose he refused from earlier in the day. Lactulose scheduled for 1700 was administered, per patient request around 1999. 0030 Patient reports had a medium bm
[2023-12-06 03:33] VITALS: BP 103/62; PULSE 59; RESP 18; TEMP 36.4; O2SAT 97
[2023-12-06 07:10] LABS: Alanine Aminotransferase 104 U/L (0-40); Albumin Level 2.9 g/dL (3.5-5.0); Alkaline Phosphatase 182 U/L (39-117); Anion Gap 13 (12-20); Aspartate Amino Transferase 158 U/L (5-37); Bilirubin Direct 9.5 mg/dL (0.0-0.5); Bilirubin Total 15.1 mg/dL (0.0-1.0); Blood Urea Nitrogen 6 mg/dL (9-16); Calcium 8.5 mg/dL (8.4-10.2); Carbon Dioxide 25 mmol/L (22-29); Chloride 103 mmol/L (96-108); Creatinine Clr Calc Pharmacy 281.2; Estimated Glomerular Filt Rate > 60; Glucose Random 130 mg/dL (60-115); Potassium 5.6 mmol/L (3.3-5.1); Sodium 135 mmol/L (135-145); Total Protein 5.2 g/dL (6.5-8.0)
[2023-12-06 08:00] VITALS: BP 104/63; PULSE 61; RESP 16; TEMP 36.8; O2SAT 96
[2023-12-06] MEDS: Nicotine 14 MG PATCH.TD24 TRANSDERMA (08:47)
[2023-12-06] MEDS: Omeprazole 20 MG CAPSULE.DR PO (08:48)
[2023-12-06] MEDS: Phytonadione (Vit K1) Oral 10 MG/ML AMPUL 5 MG PO (08:48)
[2023-12-06] MEDS: predniSONE 20 MG TABLET PO (08:48)
[2023-12-06] MEDS: predniSONE 10 MG TABLET PO (08:48)
[2023-12-06] MEDS: Gabapentin 100 MG CAPSULE PO ×2 (08:48→20:39)
[2023-12-06] MEDS: Multivitamin TABLET 1 TAB PO (08:48)
[2023-12-06] MEDS: Apixaban 5 MG TABLET PO ×2 (08:48→20:39)
[2023-12-06] MEDS: Thiamine HCL 100 MG TABLET PO (08:48)
[2023-12-06] MEDS: predniSONE 5 MG TABLET PO (08:48)
[2023-12-06] MEDS: Folic Acid 1 MG TABLET PO (08:48)
[2023-12-06] MEDS: atenoloL 25 MG TABLET PO (08:48)
[2023-12-06 10:36] LABS: INTERNATIONAL NORM RATIO 1.9 (0.9-1.1); Prothrombin Time 22.6 SEC (11.1-13.3)
[2023-12-06 10:43] LABS: Anion Gap 10 (12-20); Blood Urea Nitrogen 7 mg/dL (9-16); Calcium 8.5 mg/dL (8.4-10.2); Carbon Dioxide 27 mmol/L (22-29); Chloride 102 mmol/L (96-108); Creatinine Clr Calc Pharmacy 204.5; Estimated Glomerular Filt Rate > 60; Glucose Random 179 mg/dL (60-115); Magnesium 1.9 mg/dL (1.6-2.6); Sodium 135 mmol/L (135-145)
--- NOTE | 2023-12-06 12:42 | HO.PM.IMPN ---
Subjective Subjective Date of Service: 12/06/23 Interval History: no abd pain no N/V no diarrhea having 2-3 BMs/day Review of Systems Review of Systems: Yes all other systems are reviewed and are negative Physical Exam Vital Signs: Vital Signs: Last Vital Signs Temp 98.2 F 12/06/23 08:00 Pulse 61 12/06/23 08:00 Resp 16 12/06/23 08:00 BP 104/63 12/06/23 08:00 Pulse Ox 96 12/06/23 08:00 O2 Del Method Room Air 12/06/23 08:00 BMI result Body Mass Index 29.4 Gen: in no acute distress HEENT: sclera icteric, moist mucus membranes Neck: supple Lungs: clear to auscultation bilaterally Heart: regular rate and rhythm, no murmurs Abd: soft, non-tender, non-distended Ext: no edema, jaundiced Neuro: alert and oriented x3, no asterixis Psych: appropriate affect Objective Data Active Medications Acetaminophen (Acetaminophen 325 Mg Tablet) 650 mg PO Q8H PRN PRN Reason: Pain, Mild (Pain Scale 1-3), fever or headache Last Admin: 12/05/23 20:11 Dose: 650 mg Documented By: JA Apixaban (Apixaban 5 Mg Tablet) 5 mg PO BID [facility] Last Admin: 12/06/23 08:48 Dose: 5 mg Documented By: LEV Atenolol (Atenolol 25 Mg Tablet) 25 mg PO DAILY [facility]; Protocol Last Admin: 12/06/23 08:48 Dose: 25 mg Documented By: LEV Buprenorphine/Naloxone (Buprenorphine/Naloxone 2/0.5mg Film) 1 film SUBLINGUAL DAILY [facility] Last Admin: 12/06/23 08:47 Dose: Not Given Documented By: LEV Non-Admin Reason: pt refused; taste terrible Calcium Carbonate (Calcium Carbonate 750 Mg Tab.Chew) 750 mg PO Q4H PRN PRN Reason: Heartburn Folic Acid (Folic Acid 1 Mg Tablet) 1 mg PO DAILY [facility] Last Admin: 12/06/23 08:48 Dose: 1 mg Documented By: LEV Gabapentin (Gabapentin 100 Mg Capsule) 100 mg PO BID [facility] Last Admin: 12/06/23 08:48 Dose: 100 mg Documented By: LEV Lactulose (Lactulose 20 Gm/30 Ml Solution) 20 gm PO BIDWM [facility] Last Admin: 12/06/23 08:49 Dose: Not Given Documented By: LEV Non-Admin Reason: Patient Refused Lorazepam (Lorazepam 0.5 Mg Tablet) 0.5 mg PO TID PRN PRN Reason: anxiety Last Admin: 12/06/23 09:02 Dose: 0.5 mg Documented By: LEV Magnesium Hydroxide (Milk Of Magnesia 30 Ml Oral.Susp) 30 ml PO DAILY PRN PRN Reason: Constipation Melatonin (Melatonin 3 Mg Tablet) 6 mg PO BEDTIME PRN PRN Reason: Insomnia Last Admin: 12/05/23 19:59 Dose: 6 mg Documented By: JA Multivitamins/Vitamin C (Multivitamin Tablet) 1 tab PO DAILY [facility] Last Admin: 12/06/23 08:48 Dose: 1 tab Documented By: LEV Nicotine (Nicotine 14 Mg Patch.Td24) 14 mg TRANSDERMA DAILY [facility] Last Admin: 12/06/23 08:47 Dose: 14 mg Documented By: LEV Omeprazole (Omeprazole 20 Mg Capsule.Dr) 20 mg PO DAILY [facility] Last Admin: 12/06/23 08:48 Dose: 20 mg Documented By: LEV Ondansetron HCl (Ondansetron Hcl 4 Mg/2 Ml Vial) 4 mg IVPUSH Q8H PRN PRN Reason: Nausea and Vomiting Pharmacy Consult (Consult Rx Etoh Phenob Im/Po) 1 each MISCELLANE ONCE PRN; Protocol PRN Reason: Consult order Phytonadione (Phytonadione (Vit K1) Oral 10 Mg/Ml Ampul) 5 mg PO DAILY [facility] Stop: 12/07/23 09:01 Last Admin: 12/06/23 08:48 Dose: 5 mg Documented By: LEV Prednisone (Prednisone 5 Mg Tablet) 5 mg PO DAILY [facility] Last Admin: 12/06/23 08:48 Dose: 5 mg Documented By: LEV Prednisone (Prednisone 20 Mg Tablet) 20 mg PO DAILY [facility] Last Admin: 12/06/23 08:48 Dose: 20 mg Documented By: LEV Prednisone (Prednisone 10 Mg Tablet) 10 mg PO DAILY [facility] Last Admin: 12/06/23 08:48 Dose: 10 mg Documented By: LEV Senna (Sennosides 8.6 Mg Tablet) 17.2 mg PO BEDTIME PRN PRN Reason: constipation Sodium Chloride (0.9 % Sodium Chloride Flush 3 Ml Syringe) 3 ml IVFLUSH QSHIFT [facility] Last Admin: 12/06/23 08:49 Dose: 3 ml Documented By: LEV Thiamine HCl (Thiamine Hcl 100 Mg Tablet) 100 mg PO DAILY [facility] Last Admin: 12/06/23 08:48 Dose: 100 mg Documented By: LEV Labs 12/01/23 06:43 12/06/23 10:21 Labs: Laboratory Results - last 24 hr 12/06/23 12/06/23 05:35 10:21 PT 22.6 H D INR 1.9 H Anion Gap 13 10 L Estim Creat Clear Calc 281.2 204.5 Estimated GFR > 60 > 60 Random Glucose 130 H 179 H Calcium 8.5 8.5 Magnesium 1.9 Total Bilirubin 15.1 H Direct Bilirubin 9.5 H AST 158 H ALT 104 H Alkaline Phosphatase 182 H Total Protein 5.2 L Albumin 2.9 L Assessment and Plan (1) Acute alcoholic liver disease: Status: Acute (2) Hyperammonemia: Status: Acute (3) Conjugated hyperbilirubinemia: Status: Acute (4) Liver injury: Status: Acute Plan d9 33yo M with AUD, hx DVT on apixaban, mood disorder, peripheral neuropathy, GERD presenting with jaundice, admitted with EtOH hepatitis EtOH hepatitis - Tbili slightly higher, will continue prednisone, per GI taper over 4 wk [currently on 35 mg daily, had been on 40 mg daily 11/27-12/03] - MRI to follow up liver lesions showed peripancreatic fluid + fat stranding suspicious for acute interstitial pancreatitis, cholelithiasis with distended gallbladder, gallbladder wall thickening + edema, no intra- or extra-hepatic biliary ductal dilation, hepatomegaly + marked hepatic steatosis; previously described low-attenuation liver lesions correspond to focus of fat; reactive gastrohepatic, ernestine hepatica + retroperitoneal lymph nodes; small volume ascites and moderate anasarca - HIDA ruled out acute cholecystitis - negative HIV + hepatitis serologies - sobriety counseled + will need close outpt GI f/u coagulopathy - partially corrected with vitamin K hyperammonemia, likely hepatic encephalopathy - continue lactulose thrombocytopenia - due to EtOH/liver disease; improved after stopping ceftriaxone hypoK hypoMg - repleted UTI, not - antibiotics discontinued AUD - completed phenobarbital taper, continue vitamins - seen by Recovery Team hx DVT - apixaban mood disorder - continue peripheral neuropathy - gabapentin GERD - PPI tobacco abuse - NRT VTE ppx - apixaban dispo - home eventually when Tbili improves In my clinical judgment, the patient requires continued inpatient hospitalization for the following reasons: hyperbilirubinemia Total time managing care of this patient today: 35 minutes. Quality Stroke Does the patient have a stroke diagnosis?: No VTE Prior VTE?: No VTE Risk Level:: Medical - moderate - high VTE Device Contraindication: N/A - Device Ordered VTE Drug Contraindication: Treatment Not Indicated
[2023-12-06 15:23] VITALS: BP 113/76; PULSE 63; RESP 20; TEMP 36.2; O2SAT 99
[2023-12-06] MEDS: Buprenorphine/Naloxone 2/0.5mg FILM 1 FILM SUBLINGUAL (16:46)
[2023-12-06] MEDS: Lactulose 20 GM/30 ML SOLUTION PO (16:46)
[2023-12-06 20:00] VITALS: BP 132/82; PULSE 67; RESP 18; TEMP 36.8; O2SAT 98
[2023-12-06] MEDS: Melatonin 3 MG TABLET 6 MG PO (20:39)
[2023-12-07] MEDS: LORazepam 0.5 MG TABLET PO (00:18)
[2023-12-07 03:10] VITALS: BP 109/55; PULSE 61; RESP 18; TEMP 36.4; O2SAT 98
[2023-12-07 06:17] LABS: INTERNATIONAL NORM RATIO 1.6 (0.9-1.1)
[2023-12-07 06:24] LABS: Alanine Aminotransferase 98 U/L (0-40); Albumin Level 2.6 g/dL (3.5-5.0); Alkaline Phosphatase 175 U/L (39-117); Anion Gap 11 (12-20); Aspartate Amino Transferase 131 U/L (5-37); Bilirubin Total 10.7 mg/dL (0.0-1.0); Blood Urea Nitrogen 6 mg/dL (9-16); Carbon Dioxide 25 mmol/L (22-29); Chloride 104 mmol/L (96-108); Creatinine Clr Calc Pharmacy 224.9; Estimated Glomerular Filt Rate > 60; Glucose Random 113 mg/dL (60-115); Magnesium 1.9 mg/dL (1.6-2.6); Potassium 3.5 mmol/L (3.3-5.1); Sodium 136 mmol/L (135-145); Total Protein 4.6 g/dL (6.5-8.0)
[2023-12-07 07:55] VITALS: BP 102/57; PULSE 50; RESP 16; TEMP 36.7; O2SAT 95
[2023-12-07] MEDS: predniSONE 20 MG TABLET PO (08:24)
[2023-12-07] MEDS: Gabapentin 100 MG CAPSULE PO (08:24)
[2023-12-07] MEDS: Thiamine HCL 100 MG TABLET PO (08:25)
[2023-12-07] MEDS: predniSONE 10 MG TABLET PO (08:25)
[2023-12-07] MEDS: Folic Acid 1 MG TABLET PO (08:26)
[2023-12-07] MEDS: Multivitamin TABLET 1 TAB PO (08:26)
[2023-12-07] MEDS: predniSONE 5 MG TABLET PO (08:28)
[2023-12-07] MEDS: Lactulose 20 GM/30 ML SOLUTION PO (08:29)
[2023-12-07] MEDS: Nicotine 14 MG PATCH.TD24 TRANSDERMA (08:29)
[2023-12-07] MEDS: Omeprazole 20 MG CAPSULE.DR PO (08:29)
[2023-12-07] MEDS: Phytonadione (Vit K1) Oral 10 MG/ML AMPUL 5 MG PO (08:30)
[2023-12-07] MEDS: 0.9 % Sodium Chloride Flush 3 ML SYRINGE IVFLUSH (08:34)
[2023-12-07 09:52] VITALS: PULSE 54
[2023-12-07] MEDS: Apixaban 5 MG TABLET PO (09:52)
[2023-12-07] MEDS: Buprenorphine/Naloxone 2/0.5mg FILM 1 FILM SUBLINGUAL (09:52)
--- NOTE | 2023-12-07 09:59 | P.DS_ITS ---
DS: Providers Provider Date of Service: 12/07/23 Date of admission: 11/28/23 00:26 Primary care physician: Terry Coughlin MD Consults: 11/28/23 00:33 Addiction Medicine Routine Consulting Provider: Addiction Covering Reason for consultation: alcohol use disorder 11/28/23 07:37 Consult to Gastroenterology Routine Consulting Provider: Nikos Barraza Reason for consultation: acute hepatitis 12/01/23 12:56 Consult to General Surgery Routine Consulting Provider: Vic Mendes Reason for consultation: acute cholecystitis Has provider been notified: No DS: Diagnosis Discharge Diagnosis (1) Acute alcoholic liver disease: Status: Acute (2) Cirrhosis: Status: Acute (3) Alcoholic hepatitis: Status: Acute (4) Alcohol use disorder: Status: Acute (5) Alcohol withdrawal: Status: Acute (6) Hepatic encephalopathy: Status: Acute (7) Hypokalemia: Status: Acute (8) Hypomagnesemia: Status: Acute (9) Coagulopathy: Status: Acute (10) Peripancreatic fluid collection: Status: Acute DS: Summary Hospital Course Hospital Course: From the history and physical by the admitting hospitalist, Betty Parra, 11/28/23: This is a 33-year-old male with pertinent history of alcohol use disorder, history of DVT on Eliquis, mood disorder, peripheral neuropathy, gastroesophageal reflux disease who presents to the emergency department for evaluation of yellowing of eyes. Patient states his family members 1st noticed yellowish discoloration of skin denies 1 week ago. It was worse on the day of presentation and hence the patient decided come to the ER. Patient does have peripheral neuropathy and states he missed a step on the day of presentation and fell. Did not lose consciousness prior to the fall. No rhythmic jerking movement of extremities. No chest pain or palpitations prior to the fall. Unsure if he hit his head. Also reports dark colored urine with urinary hesitancy and change in odor. Patient admits to drinking about 10 drinks vodka every day in his last drink was on the day of presentation. No history of alcohol withdrawal or alcohol withdrawal seizures in the past. Does endorse right-sided abdominal discomfort. No hematemesis, melena or hematochezia. No fever, chills, shortness of breath, changes in bowel habits. In the emergency department, total bilirubin found to be 24.7 and ammonia level was 108. 33yo M with AUD, hx DVT on apixaban, mood disorder, peripheral neuropathy, and GERD presenting with jaundice and admitted to the medical-surgical unit with alcoholic hepatitis. Hospital course by problem: EtOH hepatitis - Maddrey score elevated. Treated with prednisone in consultation with Gastroenterology. Given 40 mg daily 11/27-12/03, 35 mg daily 12/04-12/06; then discharged on 30 mg daily x 7 days, then 20 mg daily x 7 days, then 10 mg daily x 7 days, then 5 mg daily x 7 days. Total bilirubin decreased to 10.7. Will need to follow up with Dr Nikos Barraza from Gastroenterology. Peripancreatic fluid collection Cirrhosis - MRI to follow up liver lesions seen on initial CT showed peripancreatic fluid [5.4 cm in diameter] + fat stranding suspicious for acute interstitial pancreatitis, cholelithiasis with distended gallbladder, gallbladder wall thickening + edema, no intra- or extra-hepatic biliary ductal dilation, hepatomegaly + marked hepatic steatosis; previously described low-attenuation liver lesions corresponded to focus of fat; reactive gastrohepatic, ernestine hepatica + retroperitoneal lymph nodes; small volume ascites and moderate anasarca; hepatic contour appears slightly nodular suggestive of cirrhosis with sequelae of portal hypertension including splenomegaly and periesophageal varices. Lipase only 60. HIDA ruled out acute cholecystitis. Should follow up with Gastroenterology regarding the need for follow-up imaging of the pancreatic fluid collection. The importance of complete abstinence from alcohol was counseled and he should repeat labs [CBCd, INR, CMP] in 1 week. Hepatic encephalopathy - Treated with lactulose and continued on lactulose upon discharge. thrombocytopenia - Due to cirrhosis; to repeat CBC in 1 week. hypoK hypoMg - Repleted. AUD with withdrawal syndrome - Completed phenobarbital taper; also treated with vitamins, which were prescribed upon discharge. He was seen by the Recovery Team and referred to community resources to maintain sobriety. Time Attestation Discharge Coordination Time (in mins): 45 Quality: Safe Use of Opioids Does Pt have an Active Cancer Diagnosis on the Problem List?: No Quality: Stroke Does the patient have a stroke diagnosis?: No Physical Exam Vital Signs: Vital Signs: Last Vital Signs Temp 98.1 F 12/07/23 07:55 Pulse 54 12/07/23 09:52 Resp 16 12/07/23 07:55 BP 102/57 L 12/07/23 07:55 Pulse Ox 95 12/07/23 07:55 O2 Del Method Room Air 12/07/23 07:55 BMI result Body Mass Index 29.4 Gen: in no acute distress HEENT: sclera icteric, moist mucus membranes Neck: supple Lungs: clear to auscultation bilaterally Heart: regular rate and rhythm, no murmurs Abd: soft, non-tender, non-distended Ext: no edema, jaundiced Neuro: alert and oriented x3, no asterixis Psych: appropriate affect DS: Data Data Completed and Pending Completed studies during hospitalization [Text1]: Laboratory Results WBC 5.8 X10*3/uL (4.8-10.8) 12/01/23 06:43 RBC 3.38 X10*6/uL (4.60-5.80) L 12/01/23 06:43 Hgb 12.2 g/dl (14.0-18.0) L 12/01/23 06:43 Hct 32.5 % (42.0-52.0) L 12/01/23 06:43 MCV 96.2 fL (80.0-98.0) 12/01/23 06:43 MCH 36.1 pg (27.0-33.0) H 12/01/23 06:43 MCHC 37.5 g/dl (31.0-36.0) H 12/01/23 06:43 RDW 15.3 % (11.0-16.0) 12/01/23 06:43 Plt Count 124 X10*3/uL (160-400) L D 12/01/23 06:43 MPV 12.2 fL (9.4-12.4) 12/01/23 06:43 Immature Gran % (Auto) 0.3 % (0.0-0.4) 11/28/23 05:02 Neut % (Auto) 75.9 % (45-73) H 11/28/23 05:02 Lymph % (Auto) 10.0 % (20-40) L 11/28/23 05:02 [place] % (Auto) 11.6 % (2-11) H 11/28/23 05:02 Eos % (Auto) 1.6 % (0-4) 11/28/23 05:02 Baso % (Auto) 0.6 % (0-2) 11/28/23 05:02 Lymph # (Auto) 0.6 X10*3/uL (1.2-4.9) L 11/28/23 05:02 [place] # (Auto) 0.7 X10*3/uL (0.1-1.2) 11/28/23 05:02 Eos # (Auto) 0.1 X10*3/uL (0.0-0.4) 11/28/23 05:02 Baso # (Auto) 0.0 X10*3/uL (0.0-0.2) 11/28/23 05:02 Abs Immat Gran (auto) 0.02 X10*3/uL (0.00-0.03) 11/28/23 05:02 Absolute Neuts (auto) 4.8 x10*3/uL (2.0-8.3) 11/28/23 05:02 Absolute Nucleated RBC 0.000 X10*3/uL (0.0-0.012) 12/01/23 06:43 Nucleated RBC % (auto) 0.0 /100WBC (0.0-0.2) 12/01/23 06:43 Hold Purple Top SEE NOTE 12/04/23 05:59 PT 19.0 SEC (11.1-13.3) H 12/07/23 05:42 INR 1.6 (0.9-1.1) H 12/07/23 05:42 Sodium 136 mmol/L (135-145) 12/07/23 05:42 Potassium 3.5 mmol/L (3.3-5.1) 12/07/23 05:42 Chloride 104 mmol/L (96-108) 12/07/23 05:42 Carbon Dioxide 25 mmol/L (22-29) 12/07/23 05:42 Anion Gap 11 (12-20) L 12/07/23 05:42 BUN 6 mg/dL (9-16) L 12/07/23 05:42 Creatinine 0.60 mg/dL (0.5-1.4) 12/07/23 05:42 Estim Creat Clear Calc 224.9 12/07/23 05:42 Estimated GFR > 60 12/07/23 05:42 Random Glucose 113 mg/dL (60-115) 12/07/23 05:42 Calcium 8.0 mg/dL (8.4-10.2) L 12/07/23 05:42 Magnesium 1.9 mg/dL (1.6-2.6) 12/07/23 05:42 Total Bilirubin 10.7 mg/dL (0.0-1.0) H 12/07/23 05:42 Direct Bilirubin 9.5 mg/dL (0.0-0.5) H 12/06/23 05:35 AST 131 U/L (5-37) H 12/07/23 05:42 ALT 98 U/L (0-40) H 12/07/23 05:42 Alkaline Phosphatase 175 U/L (39-117) H 12/07/23 05:42 Ammonia 46 umol/L (13-55) 11/30/23 07:47 Total Protein 4.6 g/dL (6.5-8.0) L 12/07/23 05:42 Albumin 2.6 g/dL (3.5-5.0) L 12/07/23 05:42 Lipase 60 U/L (8-78) 12/01/23 06:43 Hold Yellow Top See Note 12/04/23 05:59 Urine Color [place] A 11/27/23 20:04 Urine Appearance Cloudy 11/27/23 20:04 Urine pH 5.5 (5.0-9.0) 11/27/23 20:04 Ur Specific [place] >= 1.030 (1.005-1.025) H 11/27/23 20:04 Urine Protein 30 (1+) mg/dL (Neg-Trace) H 11/27/23 20:04 Urine Glucose (UA) Negative mg/dL (Negative) 11/27/23 20:04 Urine Ketones Negative mg/dL (Negative) 11/27/23 20:04 Urine Blood Negative (Negative) 11/27/23 20:04 Urine Nitrite Positive (Negative) H 11/27/23 20:04 Ur Leukocyte Esterase Moderate (2+) (Negative) H 11/27/23 20:04 Urine RBC 0-2 /HPF (0-2) 11/27/23 20:04 Urine WBC 6-10 /HPF (0-5) H 11/27/23 20:04 Ur Squamous Epith Cells 11-20 /HPF (0-2) 11/27/23 20:04 Urine Bacteria 1+ (None Seen) 11/27/23 20:04 Hyaline Casts 0-2 /LPF (0-2) 11/27/23 20:04 Salicylates < 5.0 mg/dL (15-30) L 11/28/23 05:02 Acetaminophen < 3 mcg/mL (<30) 11/28/23 05:02 Ethyl Alcohol < 10 mg/dL 11/27/23 16:12 Hepatitis A IgM Ab Nonreactive (Nonreactive) 11/27/23 16:12 Hep Bs Antigen Negative (Negative) 11/27/23 16:12 Hep Bs Antibody REACTIVE (Nonreactive) 11/27/23 16:12 Hep B Core Total Ab Nonreactive (Nonreactive) 11/27/23 16:12 Hepatitis C Ab (EIA) Nonreactive (Nonreactive) 11/27/23 16:12 HIV 1&2 Ab/P24 Ag 4thGn Nonreactive (Nonreactive) 11/28/23 05:02 Impressions Abdomen/Pelvis CT 11/27/23 20:53 IMPRESSION: 1. There is diffuse hepatic steatosis. There are 2 adjacent small low-attenuation lesions newly seen within the right hepatic lobe. Given the presentation with jaundice, consider further evaluation with MRI. 2. The gallbladder is somewhat hydropic, without calculus or common bile duct or intrahepatic ductal dilatation noted. 3. There is wall thickening of the duodenum, which can be seen in the setting of duodenitis. Please correlate clinically. 3. There are stable enlarged periportal, celiac axis, portacaval, aortocaval and para-aortic lymph nodes. These are nonspecific and should be managed on a clinical basis. Continued imaging follow-up may be warranted. 4. There is splenomegaly. 5. There is trace abdominal pelvic free fluid. Mild anasarca is seen. 6. There is mild degenerative disc disease at L4-5 and L5-S1. No aggressive osseous finding is seen. Fleischner guidelines were followed. Electronically signed by: Momo Layne MD 11/27/2023 11:[address] 11/28/23 00:50 IMPRESSION: Unremarkable non-contrast CT of the brain. Electronically signed by: Betzy Bain MD 11/28/2023 08:00 AM EDT RP Abdomen MRI 11/29/23 12:36 IMPRESSION: 1. Increasing peripancreatic fluid and fat stranding suspicious for acute interstitial pancreatitis. A 5.4 cm fluid collection inferior to the body and tail of the pancreas suggesting an acute peripancreatic collection. No loss of pancreatic parenchymal enhancement to suggest pancreatic necrosis. 2. Cholelithiasis with a distended gallbladder. There is gallbladder wall thickening and edema, though nonspecific in the setting of underlying liver disease. Constellation of findings raises the possibility of acute cholecystitis, though difficult to say with certainty given the background of underlying liver disease and other inflammatory changes. Recommend correlation with clinical symptoms and this could be with a nuclear medicine HIDA scan if warranted clinically. 3. No intra or extrahepatic biliary duct dilatation and no definite intraluminal filling defect to suggest choledocholithiasis though lack of MRCP sequences does limit evaluation. 4. Hepatomegaly and marked hepatic steatosis. Previously described low-attenuation adjacent liver lesions corresponds to a focus of focal fat. Hepatic contour appears slightly nodular suggestive of cirrhosis with sequelae of portal hypertension including splenomegaly and periesophageal varices. 5. Loss of the normal haustral markings in the descending colon, which could be seen in the setting of chronic underlying inflammation such as chronic ulcerative colitis. 6. Mildly enlarged gastrohepatic, ernestine hepatic and retroperitoneal lymph nodes again seen, possibly reactive. 7. Trace bilateral pleural effusions, small volume ascites and moderate anasarca. The findings and recommendations were discussed with Dr. Hall by telephone at 11/30/2023 6:00 PM EST and it was ascertained that the content and urgency of the report was understood at the time of direct communication. Electronically signed by: Georgia Du MD 11/30/2023 06:04 PM EDT RP Hepatobiliary Scan Nuclear Medicine 12/01/23 14:00 IMPRESSION: Visualization of the gallbladder is evidence of a patent cystic duct and strong evidence against the diagnosis of acute cholecystitis. The common bile duct is patent. Gallbladder emptying and ejection fraction are abnormal. Impaired liver function. Electronically signed by: Milo Bullock MD 12/02/2023 03:18 PM EDT RP Discharge Plan Discharge Anticipated Discharge Date/Time: 12/07/23 09:51 Patient Disposition: Home, Self-Care Discharge Diagnosis: alcoholic hepatitis alcoholic cirrhosis hepatic encephalopathy alcohol use disorder with alcohol withdrawal Referrals: Nikos Barraza MD [Physician] - 2 Weeks Zander Coughlin MD [Physician] - 1 Week Discharge Medications: New multivitamin [Daily-Gerri] Tablet 1 tab PO DAILY Qty: 30 0RF nicotine 14 mg/24 hr Patch 24 Hour 14 mg transdermal DAILY Qty: 30 0RF folic acid 1 mg Tablet 1 mg PO DAILY Qty: 30 0RF lactulose 20 gram/30 mL Solution 20 g PO BIDWM Qty: 1800 0RF thiamine mononitrate (vit B1) 100 mg Tablet 100 mg PO DAILY Qty: 30 0RF prednisone 10 mg tablet 10 mg PO DIRECTED Qty: 46 0RF Rx Instructions: 30 mg (3 tabs) daily x 1 week, then 20 mg (2 tabs) daily x 1 week, then 10 mg (1 tab) daily x 1 week, then 5 mg (half tab) daily x 1 week Continued gabapentin 100 mg capsule 100 mg PO BID 30 Days Qty: 60 4RF atenolol 25 mg tablet 25 mg PO DAILY Qty: 90 0RF lorazepam 1 mg tablet 1 mg PO TID PRN (Reason: anxiety) 30 Days Qty: 90 0RF Eliquis 5 mg Tablet 5 mg PO BID Qty: 60 0RF sennosides [Natural Senna Laxative] 8.6 mg tablet 17.2 mg PO BEDTIME PRN (Reason: constipation) buprenorphine-naloxone 2-0.5 mg film 1 film sublingual DAILY omeprazole 20 mg capsule,delayed release(DR/EC) 20 mg PO DAILY Qty: 90 3RF Discharge Orders: Discharge Order (Routine); Ordered 12/07/23 Ordered By: Adriana Alvarez Diet: Advance to usual diet Activity on Discharge: As tolerated Stand Alone Forms: Patient Portal Discharge page Print Language: Slovenian Other Ambulatory Orders: Complete Blood Count Auto Diff (Routine) Timeframe: 1 Week Facility: [facility] - Location: Laboratory Ordered By: Adriana Alvarez Comprehensive Met. Panel (Routine) Timeframe: 1 Week Facility: [facility] - Location: Laboratory Ordered By: Adriana Alvarez Prothrombin Time INR (Routine) Timeframe: 1 Week Facility: [facility] - Location: Laboratory Ordered By: Adriana Alvarez Care Plan Goals: sobriety liver health Health Concerns: alcoholic hepatitis alcoholic cirrhosis hepatic encephalopathy alcohol use disorder with alcohol withdrawal Plan of Treatment: avoid alcohol completely prednisone [steroid] taper as follows: 30 mg (3 tabs) daily x 1 week, then 20 mg (2 tabs) daily x 1 week, then 10 mg (1 tab) daily x 1 week, then 5 mg (half tab) daily x 1 week take vitamins [thiamine, multivitamin, folic acid] as prescribed take lactulose 30 mL twice daily follow up with Gastroenterology in 2 weeks [Dr Barraza] labs in 1 week: CBCd, CMP, INR Please follow up with your primary care doctor within 1 week. Return to the hospital if you experience recurrent or worsening symptoms. Assessment: See Discharge Summary.
--- NOTE | 2023-12-07 10:36 | MHC.CM.PN ---
Patient is discharged to home self care. He will arrange for private transportation home.
--- NOTE | 2023-12-07 12:57 | PC.NURSE ---
Pt's own medication returned to pt. prior discharge.
== END 2023-12-07 12:57 | disposition home or self-care (01) | DRG 280 ==
LOC: HO.ED 20:45 → HO.EDOVER 11-28 00:49 → HO.IMC 11-28 07:41 → HO.S3 12-02 00:10
PROVIDERS: Hospitalist; Nurse Practitioner Acute Care; Physician Assistant; Admitting Provider Student in an Organized Health Care Education/Training Program; Emergency Provider Emergency Medicine Emergency Medical Services; PCP Internal Medicine; Visit Provider Family Medicine
DX: K70.10 Alcoholic hepatitis without ascites (principal); K70.30 Alcoholic cirrhosis of liver without ascites; D68.9 Coagulation defect, unspecified; E72.20 Disorder of urea cycle metabolism, unspecified; K76.6 Portal hypertension; I85.10 Secondary esophageal varices without bleeding; D69.59 Other secondary thrombocytopenia; K76.82 Hepatic encephalopathy; E83.42 Hypomagnesemia; K21.9 Gastro-esophageal reflux disease without esophagitis; G62.9 Polyneuropathy, unspecified; E87.6 Hypokalemia; F10.139 Alcohol abuse with withdrawal, unspecified; K76.0 Fatty (change of) liver, not elsewhere classified; F17.210 Nicotine dependence, cigarettes, uncomplicated; Z71.6 Tobacco abuse counseling; F39 Unspecified mood [affective] disorder; Z86.718 Personal history of other venous thrombosis and embolism; F11.20 Opioid dependence, uncomplicated; Z79.01 Long term (current) use of anticoagulants; Z79.899 Other long term (current) drug therapy
CPT/HCPCS: 36415; 70450; 74177; 74183; 78227; 80048; 80053; 80076; 80143; 80179; 80307; 81001; 82140; 83690; 83735; 85025; 85027; 85610; 86704; 86706; 86709; 86803; 87086; 87340; 87389; 93005; 99285; A9537; A9585; J0696; J1836; J2560; J2805; J3475; J7120; P9047; Q9967

== ENCOUNTER → 2023-11-28 00:26 | Outpatient (BNV) | payer OTHER, SELFPAY | PROVIDERS: Admitting Provider Student in an Organized Health Care Education/Training Program; Emergency Provider Emergency Medicine Emergency Medical Services; PCP Psychiatry & Neurology Neurology; Visit Provider Physician Assistant Surgical | DX: K70.10 Alcoholic hepatitis without ascites (principal) | CPT/HCPCS: 99222; 99232 ==

== ENCOUNTER → 2023-11-28 00:26 | Outpatient (BNV) | payer OTHER, SELFPAY | PROVIDERS: Admitting Provider Student in an Organized Health Care Education/Training Program; Emergency Provider Emergency Medicine Emergency Medical Services; PCP Psychiatry & Neurology Neurology; Visit Provider Internal Medicine Gastroenterology | DX: K70.10 Alcoholic hepatitis without ascites (principal) | CPT/HCPCS: 99223 ==

== ENCOUNTER → 2023-11-28 00:26 | Outpatient (BNV) | payer OTHER, SELFPAY | PROVIDERS: Admitting Provider Student in an Organized Health Care Education/Training Program; Emergency Provider Emergency Medicine Emergency Medical Services; PCP Psychiatry & Neurology Neurology; Visit Provider Student in an Organized Health Care Education/Training Program | DX: K70.10 Alcoholic hepatitis without ascites (principal); K74.60 Unspecified cirrhosis of liver; F10.90 Alcohol use, unspecified, uncomplicated; F10.939 Alcohol use, unspecified with withdrawal, unspecified; K76.82 Hepatic encephalopathy; E87.6 Hypokalemia; E83.42 Hypomagnesemia; D68.9 Coagulation defect, unspecified; K86.89 Other specified diseases of pancreas | CPT/HCPCS: 99223; 99232; 99239; 99499 ==

== ENCOUNTER → 2023-12-01 14:30 | Outpatient (RCR) | payer OTHER, SELFPAY ==
[2020-09-15 14:46] VITALS: BP 118/74; PULSE 72; RESP 14; TEMP 36.4; O2SAT 99; BMI 24.7
--- NOTE | 2020-09-15 14:54 | PM.HEMONCCN ---
Subjective - Subjective Chief complaint: Elevated ferritin Patient: new to practice Consult date: 09/15/20 Requesting Physician: Dr. Coughlin Primary Care Provider: Zander Coughlin MD Medical Summary: Diagnosis: Elevated ferritin, heterozygous positivity for H63D mutation Chronic alcoholism, noted to have elevated iron levels and abnormal LFTs in 2020. HPI - Consult Narrative Reason for consult: Iron overload state Narrative: Marvel Vizcarra I is a 30 year old male referred for evaluation/management of iron overload state. He was also noted to have heterozygous positivity for H63D mutation. No known family history of Hereditary hemochromatosis. Patient was drinking excessively for many months. When he was told of abnormal liver enzymes and high ferritin levels, he did quit drinking about 6 weeks ago. He does smoke half to a pack a day. He denies nausea or abdominal discomfort. He had noticed some leg swelling but no calf pain or tenderness. He denies chest pain or shortness of breath. Since he quit drinking he lost 15-20 lb. He was diagnosed with COVID-19 infection in February. He has since received COVID-19 vaccination. He is feeling fine today and has no complaints. Review of Systems - Constitutional Reports as per HPI, Reports no additional constitutional complaints - Cardiovascular Reports no additional cardiovascular complaints - Respiratory Reports no additional respiratory complaints - Gastrointestinal Reports no additional gastrointestinal complaints [facility] Medical History: Medical History (Last Reviewed 08/26/20 @ 13:58 by Zander Coughlin MD) Abnormal complete blood count Abnormal liver enzymes Alcohol abuse Edema of both feet Foot pain, bilateral No known health problems Family History: Family History (Last Updated 09/15/20 @ 14:50 by Dot Jackson) Paternal Grandfather Cancer Paternal Grandmother Cancer Surgical History: Surgical History (Last Updated 09/15/20 @ 14:48 by Dot Jackson) Hx of skin graft Social History: Social History (Last Updated 09/15/20 @ 14:50 by Dot Jackson) Alcohol History: Alcohol intake: former Alcohol History Details: Alcohol intake frequency: does not drink Tobacco History: Patient Tobacco Use Status: Current everyday Tobacco Substance Use History: Use of substances other than those prescribed or required for medical reasons: No Substance Use Type: Former Substance User Home Medications and Allergies Home Medications Medication Instructions Recorded Confirmed Type omeprazole 20 mg capsule,delayed 20 mg PO DAILY 02/26/20 09/15/20 History release buprenorphine 4 mg-naloxone 1 mg 4 film SUBLINGUAL DAILY 08/08/20 09/15/20 History sublingual film cyanocobalamin (vitamin B-12) 1,000 mcg PO DAILY 08/08/20 09/15/20 History 1,000 mcg capsule folic acid 1 mg tablet 1 mg PO DAILY 08/26/20 09/15/20 History Allergies Allergy/AdvReac Type Severity Reaction Status Date / Time No Known Allergies Allergy Verified 08/26/20 13:44 Physical Exam Vital signs: Vital Signs Temp 97.6 F 09/15/20 14:46 Pulse 72 09/15/20 14:46 Resp 14 09/15/20 14:46 BP 118/74 09/15/20 14:46 Pulse Ox 99 09/15/20 14:46 Intake & Output 09/14/20 09/15/20 09/15/20 18:59 06:59 18:59 Other: Weight 87.2 kg [place] Weight in Grams [id number] Weight 87.2 kg - Constitutional Present: no acute distress - Routine HEENT Exam Head: Present: normal inspection Eye: Present: EOMI, normal appearance, PERRL - Routine Neck Exam Present: supple. Absent: lymphadenopathy - Routine Respiratory Exam Present: CTAB - Routine Cardiovascular Exam Cardiovascular: Present: RRR, S1, S2 - Routine Abdominal Exam Present: soft Hem/Onc Consult Result - Labs CBC & Chem 7: 09/15/20 15:21 Assessment and Plan (1) Elevated ferritin Status: Acute 1. This is a 30-year-old male with history of chronic alcoholism who was noted to have iron overload state as well as abnormal liver enzymes. Since he quit drinking his liver enzymes have normalized and his ferritin level has come down. Patient was advised to continue to abstain from drinking alcohol. He was advised about deleterious effect of long standing alcoholism as well as smoking. He was also advised about smoking cessation. He was encouraged to establish with alcohol anonymous in order to continue to stay on the course. He does not need therapeutic phlebotomy. Heterozygous positivity for H63D mutation generally does not cause iron overload state. He was told that it is his alcoholism that is causing iron overload state and he is willing to abstain from this. Follow-up in 2 months. I thank you for this referral.
--- NOTE | 2020-09-15 15:20 | MHC.HEMONCMA ---
Patient came in for a consult, states that he is ok- just has issues with bilateral feet swelling. Clinical summary was reviewed and updated. Patient had labs and will return in 2 months for a follow up.
[2020-09-15 15:30] LABS: MANUAL DIFF FLAG NO
[2020-09-15 15:33] LABS: Basophils Percent Auto 0.7 % (0-2); Eosinophils Absolute Auto 0.6 X10*3/uL (0.0-0.4); Eosinophils Percent Auto 9.7 % (0-4); Hematocrit 44.7 % (42-52); Hemoglobin 15.6 g/dl (14.0-18.0); Imm Gran Abs Auto 0.01 X10*3/uL (0.00-0.03); Imm Gran Pct Auto 0.2 % (0.0-0.4); Lymphocytes Absolute Auto 1.5 X10*3/uL (1.2-4.9); Lymphocytes Percent Auto 26.3 % (20-40); Mean Corpuscular HGB Conc 34.9 g/dl (31.0-36.0); Mean Corpuscular Hemoglobin 32.8 pg (27.0-33.0); Mean Corpuscular Volume 93.9 fL (80-98); Mean Platelet Volume 10.6 fL (9.4-12.4); Monocytes Absolute Auto 0.5 X10*3/uL (0.1-1.2); Neutrophils Absolute Auto 3.2 X10*3/uL (2.0-8.3); Neutrophils Percent Auto 55.1 % (45-73); Platelet Count 261 X10*3/uL (160-400); Red Blood Count 4.76 X10*6/uL (4.60-5.80); White Blood Count 5.8 X10*3/uL (4.8-10.8)
[2020-09-15 16:06] LABS: Alanine Aminotransferase 31 U/L (0-40); Albumin Level 4.6 g/dL (3.5-5.0); Alkaline Phosphatase 93 U/L (39-117); Aspartate Amino Transferase 33 U/L (5-37); Bilirubin Direct 0.3 mg/dL (0.0-0.5); Bilirubin Total 0.6 mg/dL (0.0-1.0); Iron 105 mcg/dL (45-160); Percent Iron Saturation 37 % (15-50); Total Iron Binding Capacity 285 mcg/dL (228-428); Total Protein 6.8 g/dL (6.5-8.0); Unsaturated Iron Binding 180 ug/dL
[2020-09-15 16:27] LABS: Ferritin 284 ng/mL (20-250)
== END | disposition home or self-care (01) ==
LOC: HO.ONC 09-15 14:32
PROVIDERS: PCP Internal Medicine; Referring Provider Internal Medicine; Visit Provider Internal Medicine
DX: E83.10 Disorder of iron metabolism, unspecified (principal); R74.8 Abnormal levels of other serum enzymes; F10.20 Alcohol dependence, uncomplicated; F17.200 Nicotine dependence, unspecified, uncomplicated; Z71.6 Tobacco abuse counseling
CPT/HCPCS: 36415; 80076; 82668; 82728; 83540; 85025; 99213

== ENCOUNTER 2023-12-13 14:48 | Outpatient (AMB) | payer OTHER, SELFPAY ==
--- NOTE | 2023-12-13 14:59 | MHC.OFFVIS ---
Vital Signs 12/13/23 15:03 Height 6 ft 2 in Weight 215 lb BMI 27.6 Intake Visit Reasons: 4 mo f/u Intake Note: Patient presents for 4 month follow up. Allergies No Known Allergies Allergy (Verified 12/13/23 15:03) Medication List - Last Reconciled 12/13/23 by NUPUR Keyes apixaban (Eliquis) 5 mg PO BID atenolol 25 mg PO DAILY buprenorphine-naloxone 2-0.5 mg 1 film sublingual DAILY folic acid 1 mg PO DAILY gabapentin 100 mg PO BID 30 days lactulose 20 grams (30 mL) PO BIDWM lorazepam 1 mg PO TID PRN 30 days multivitamin (Daily-Gerri tablet) 1 tab PO DAILY nicotine 14 mg transdermal DAILY omeprazole 20 mg PO DAILY prednisone 10 mg PO DIRECTED sennosides (Natural Senna Laxative) 17.2 mg PO BEDTIME PRN thiamine mononitrate (vit B1) 100 mg PO DAILY HPI Comments Details: 33-yr-old male presents for f/u visit for neuropathy. Pt was recently d/c'd from [facility] for tx of alcoholic hepatitis, alcoholic cirrhosis, hepatic encephalopathy, alcohol use disorder with alcohol withdrawal. He is still visibly jaundiced. Pt states he has not drank alcohol since hospital d/c. He states he does not plan to drink again- only was drinking because he was home and bored. He is due for f/u labs- which he will due today. He is aware of his other f/u appts needed. Pt reports after his last visit in Apr, he went to the ER and was diagnosed w/ a LLE DVT and then developed a RLE DVT. States he has been tx'd w/ Eliquis. He states hematology feels this is likely familial- as he has strong family PE and blood clots. He states he his neuropathy symptoms make it difficult for him to walk. He cannot feel his toes or the soles of his feet, more son on the left. This makes him unbalanced. He has not fallen since he fell off the ladder beofre being referred here. He does also have numbness in his right fingertips. Some days are worse than others. The Gabapentin helps some (60-70%) with the discomfort but not the numbness. He does have BLE swelling. He notes that his compression boots for the DVTs is helpful. Denies BLE weakness. 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 [facility] Medical History (Updated 12/13/23 @ 17:25 by NUPUR Keyes) COVID Cirrhosis Neuropathy Sensory ataxia Clavicle fracture Alcohol abuse Foot pain, bilateral Abnormal complete blood count Abnormal liver enzymes No known health problems Surgical History Hx of skin graft Family History Paternal Grandfather Cancer Paternal Grandmother Cancer Social History Household Members: Sp[facility] Do you presently have visiting nurse or other home services: No Alcohol intake: current Alcohol intake frequency: 3 or more drinks per day Alcohol type: hard liquor Comment: patient refusing bed alarm, steady on feet, high fall risk per CIWA protoca Patient Tobacco Use Status: Former Tobacco user Years Smoked: 10 e-Cigarette/Vaping Use: Currently Using Substance Use Type: Marijuana service: No 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 status: 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 Physical Exam Vital Signs: BMI result Body Mass Index 27.6 Const Other: Yellowish hue to skin and bilateral sclera. General: cooperative and no acute distress Orientation/consciousness: patient oriented x3 Resp Effort & Inspection: normal respiratory effort and able to speak in complete sentences Neuro General: patient oriented x3 Cranial nerves: Yes CN's II-XII intact bilaterally Cognition (Neuro): normal cognition Psych Appearance: grossly normal Mental Status: mental status grossly normal Speech and movement: Normal speech and movement present Affect: normal affect Attitude: cooperative Assessment & Plan Assessment & Plan (1) Neuropathy: Comment: Mild to moderate axonal sensory motor peripheral neuropathy. Code(s): G62.9 - Polyneuropathy, unspecified Category: Medical (2) Alcoholism: Code(s): F10.20 - Alcohol dependence, uncomplicated Category: Medical Plan Reviewed recent hospital records, discussed that hepatic dysfunction and LE swelling may exacerbate her neuropsthy s/s Try increasing Gabapentin from 100mg bid to 100mg tid. Check hosp f/u labs as ordered. Pt should abstain from work at this time, he is at high risk for falls d/t BLE peripheral neuropathy and is on anti-coagulation tx d/t recurrent peripheral blood clots. Pt to follow-up in 6 months or sooner prn. Medications: Changed From gabapentin 100 mg PO BID 30 days 60 caps 4RF To gabapentin 100 mg PO TID 30 days 90 caps 4RF Coding Level of Care Code Est Pt Level 3 (90714) Diagnoses Neuropathy G62.9 Alcoholism F10.20
[2023-12-13 15:03] VITALS: BMI 27.6
== END 2023-12-13 15:45 | disposition home or self-care (01) ==
PROVIDERS: PCP Internal Medicine; Visit Provider Nurse Practitioner Family
DX: G62.9 Polyneuropathy, unspecified (principal); F10.20 Alcohol dependence, uncomplicated
CPT/HCPCS: 99213

== ENCOUNTER → 2023-12-13 14:48 | Outpatient (BNVA) | payer OTHER, SELFPAY | PROVIDERS: PCP Internal Medicine; Visit Provider Nurse Practitioner Family | DX: G62.9 Polyneuropathy, unspecified (principal); F10.20 Alcohol dependence, uncomplicated | CPT/HCPCS: 99212 ==

== ENCOUNTER 2023-12-13 15:47 | Outpatient (REF) | payer OTHER, SELFPAY ==
[2023-12-13 17:42] LABS: Hematocrit 41.4 % (42.0-52.0); Hemoglobin 14.3 g/dl (14.0-18.0); Mean Corpuscular HGB Conc 34.5 g/dl (31.0-36.0); Mean Corpuscular Hemoglobin 35.3 pg (27.0-33.0); Mean Corpuscular Volume 102.2 fL (80.0-98.0); Mean Platelet Volume 12.5 fL (9.4-12.4); Platelet Count 244 X10*3/uL (160-400); Red Blood Count 4.05 X10*6/uL (4.60-5.80); Red Cell Distribution Width 13.1 % (11.0-16.0); White Blood Count 9.6 X10*3/uL (4.8-10.8)
[2023-12-13 17:52] LABS: INTERNATIONAL NORM RATIO 1.4 (0.9-1.1); Prothrombin Time 17.4 SEC (11.1-13.3)
[2023-12-13 17:54] LABS: Alanine Aminotransferase 177 U/L (0-40); Alkaline Phosphatase 195 U/L (39-117); Anion Gap 14 (12-20); Aspartate Amino Transferase 167 U/L (5-37); Bilirubin Total 8.1 mg/dL (0.0-1.0); Blood Urea Nitrogen 6 mg/dL (9-16); Calcium 9.6 mg/dL (8.4-10.2); Carbon Dioxide 26 mmol/L (22-29); Chloride 103 mmol/L (96-108); Estimated Glomerular Filt Rate > 60; Glucose Random 115 mg/dL (60-115); Sodium 139 mmol/L (135-145); Total Protein 6.6 g/dL (6.5-8.0)
[2023-12-13 19:02] LABS: Band Neutrophils Percent 1 % (3-5); Lymphocytes Absolute Manual 0.4 X10*3/uL (1.2-4.9); Lymphocytes Percent Manual 4 % (20-40); Monocytes Absolute Manual 0.4 X10*3/uL (0.1-1.2); Monocytes Percent Manual 4 % (2-11); Neutrophils Absolute Manual 8.8 X10*3/uL (2.0-8.3); Neutrophils Percent Manual 91 % (45-73)
[2023-12-13 19:03] LABS: RBC Morphology NOTED
[2023-12-13 19:04] LABS: Acanthocytes 1+ (0-2) /OIF; Basophilic Stippling 1+ (0-2) /OIF; Platelet Estimate NORMAL (NORMAL); Platelet Morphology Comment NORMAL; Toxic Vacuolation PRESENT
== END 2023-12-13 15:48 | disposition home or self-care (01) ==
LOC: HO.HKASLDS 15:47
PROVIDERS: Visit Provider Family Medicine
DX: K74.60 Unspecified cirrhosis of liver (principal)
CPT/HCPCS: 36415; 80053; 85007; 85027; 85610

== ENCOUNTER 2023-12-19 12:53 | Outpatient (AMB) | payer OTHER, SELFPAY ==
[2023-12-19 13:04] VITALS: BP 108/70; PULSE 48; O2SAT 99; BMI 27.5
--- NOTE | 2023-12-19 13:04 | A.OFFVIS_ITS ---
Vital Signs 12/19/23 13:04 Height 6 ft 2 in Weight 213 lb 13.574 oz BMI 27.5 BP 108/70 Blood Pressure Location Lt brachial Position Sitting Pulse 48 L Pulse Source Pulse Oximeter Pulse Oximetry (%) 99 Oxygen Delivery Method Room Air Intake Visit Reasons: juan requested to see patient Intake Note: Marvel presents in office today for a requested appt to discuss ongoing joanie rns. CC; Pt reports that he has remained stable since his last visit. Pt does report that he has noticed a new trigger food. Pt has been reporting abdominal pain when consuming any variety of beef. Donations Attendant Required: No Allergies No Known Allergies Allergy (Verified 12/19/23 13:05) HPI HPI juan requested to see patient: Details: LAST VISIT Alcoholism Transaminitis LLQ abdominal pain Postprandial epigastric pain GERD (gastroesophageal reflux disease) Constipation Plan Patient will continue omeprazole daily. Avoid alcohol. Encouraged patient to go to detox if necessary. Currently he is seen by Dr. Irene for superficial thrombophlebitis of bilateral extremities and has upcoming appointment with vascular surgeon. Patient will start taking senna daily. Increase fluid intake and activity to promote better bowel motility. Avoid dietary triggers and late night snacking. Staying upright for minimum 3 hours after meals discussed with patient. Patient will return in the office in 3 months. We will discuss going for upper endoscopy and maybe colonoscopy depending on patient's bowels status. He is agreeable to this plan and verbalizes understanding of instructions. He was given the opportunity to ask questions and all questions answered. ? For allowing me to participate in his care Medications New sennosides (Natural Senna Laxative) 17.2 mg (2 x 8.6 mg) PO BEDTIME 60 tabs 3RF constipation K59.00 Refilled omeprazole 20 mg PO DAILY 90 caps 3RF CONSULT NOTE FROM HOSPITALIZATION DONE BY DR. VICTOR (1) Alcoholic hepatitis: Status: Acute Plan 1/ clinical history and presentation most consistent with alcoholic hepatitis, however he does have enlarged LN, might also be seen with severe inflammation, but need to r/o liver mass or lesions PLAN: 1/high protein diet, can help reduce inflammation and catabolic state, 1.1g/kg daily AT LEAST 2/ cont with pred for the moment, if no improvement in 1 week stop, unfortunately can;t use lille score to guide as he is on eliquis 3/ alcohol abstinence and multivitamins, 4/ check hep serologies 5/ MRI liver protocol r/o underlying liver lesions 6/ no need for EGD at this time, can consider on outpatient basis, no significant ascites on exam. TODAY'S VISIT Patient is here today for follow-up his recent hospital admission. Patient was admitted with acute alcoholic hepatitis. Currently patient has not drank since he left the hospital. He is going to start this week with addiction medicine for initial intake to help him continue stay sober. Patient will try to go to some sort of a day program where he can avoid drinking. 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 He continues to be on blood thinners for DVT. Sees Hematology and follows up with them. Patient admits that he has abdominal pain and discomfort depending on what he eats. Denies feeling bloated. Denies any shortness of breath or chest pain with or without activities. Patient denies any nausea or vomiting. MRI showed no lesions, hepatomegaly with slightly nodular river concerns for cirrhosis. Patient had HIDA scan that showed hypoactive gallbladder possible biliary dyskinesia, however this could be possible to patient not having good appetite and not eating much. Currently patient is not having any symptoms. [facility] Medical History COVID Cirrhosis Neuropathy Sensory ataxia Clavicle fracture Alcohol abuse Foot pain, bilateral Abnormal complete blood count Abnormal liver enzymes No known health problems Surgical History Hx of skin graft Family History Paternal Grandfather Cancer Paternal Grandmother Cancer Social History Household Members: Spouse Housing: Condominium Do you presently have visiting nurse or other home services: No Alcohol intake: current Alcohol intake frequency: 3 or more drinks per day Alcohol type: hard liquor Comment: patient refusing bed alarm, steady on feet, high fall risk per CIWA protoca Patient Tobacco Use Status: Former Tobacco user Years Smoked: 10 e-Cigarette/Vaping Use: Currently Using Substance Use Type: Marijuana service: No 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 status: 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 Review of Systems Const Denies weight gain and Denies weight loss ENT Reports no additional complaints, Denies dysphagia and Denies odynophagia Card Reports no additional complaints Resp Reports no additional complaints GI Reports abdominal pain (Epigastric, occasional), Denies belching, Denies melena, Reports bloating (Occasional postprandially), Denies change in bowel habits, Reports constipation, Denies dysphagia, Denies excessive flatus, Denies dyspepsia, Reports heartburn (Occasional), Denies diarrhea, Denies loose stools, Denies nausea, Denies odynophagia and Denies vomiting Reports no additional complaints Musc Reports no additional complaints Neuro Reports no additional complaints Psych Reports no additional complaints Endo Reports no additional complaints Physical Exam Vital Signs: Last Vital Signs Pulse 48 L 12/19/23 13:04 BP 108/70 12/19/23 13:04 Pulse Ox 99 12/19/23 13:04 Oxygen Delivery Method Room Air 12/19/23 13:04 BMI result Body Mass Index 27.5 Const General: healthy appearing and no acute distress Orientation/consciousness: patient oriented x3 Resp Effort & Inspection: normal respiratory effort, able to speak in complete sentences, no tracheal deviation and symmetric chest movement Auscultation: clear to auscultation bilaterally Cardio Rate: regular rate GI Inspection: Yes normal to inspection, No distended and Yes obesity Palpation (GI): Soft to palpation, not firm, nontender and No hepatosplenomegaly present Auscultation: normal bowel sounds General: Yes no CVA tenderness Back/Spine/Pelvis Back: no CVA tenderness Skin General skin exam: elasticity normal, turgor normal and dry skin Neuro General: patient oriented x3 Psych Appearance: grossly normal Mental Status: mental status grossly normal Results Reviewed Results Reviewed: ABDOMINAL MRI TO RULE OUT LIVER MASS LIVER AND BILIARY TREE: Liver is enlarged measuring 24.7 cm in span. Hepatic contour appears slightly nodular recommend correlation with risk factors for cirrhosis. Marked loss of signal on opposed phase imaging compatible with hepatic steatosis. Previously described low-attenuation adjacent liver lesions corresponds to a focus of focal fat. No intra or extrahepatic biliary duct dilatation and no definite intraluminal filling defect suggest choledocholithiasis though lack of MRCP sequences does limit evaluation. HIDA SCAN The calculated gallbladder ejection fraction is 15% (Normal range of gallbladder ejection fraction is between 35-80%; GBEF <35% is considered biliary hypokinesia and >80% is considered biliary hyperkinesia; Ref. #1-Clinical Journal of Gastroenterology (2020) 14:2130-3494; Ref.#2-[email or web address]). NM/NM hepatobiliary w pharm IMPRESSION: Visualization of the gallbladder is evidence of a patent cystic duct and strong evidence against the diagnosis of acute cholecystitis. The common bile duct is patent. Gallbladder emptying and ejection fraction are abnormal. Impaired liver function. Assessment & Plan Assessment & Plan (1) Alcohol use disorder: Code(s): F10.90 - Alcohol use, unspecified, uncomplicated Category: Medical (2) Cirrhosis: Code(s): K74.60 - Unspecified cirrhosis of liver Category: Medical Qualifiers: Hepatic cirrhosis type: alcoholic cirrhosis Ascites presence: without ascites Qualified Code(s): K70.30 - Alcoholic cirrhosis of liver without ascites (3) Transaminitis: Code(s): R74.01 - Elevation of levels of liver transaminase levels Category: Medical (4) Hemochromatosis: Code(s): E83.119 - Hemochromatosis, unspecified Category: Medical Qualifiers: Hemochromatosis type: hereditary Qualified Code(s): E83.110 - Hereditary hemochromatosis (5) Alcoholism: Code(s): F10.20 - Alcohol dependence, uncomplicated Category: Medical (6) Postprandial epigastric pain: Code(s): R10.13 - Epigastric pain (7) LLQ abdominal pain: Code(s): R10.32 - Left lower quadrant pain (8) GERD (gastroesophageal reflux disease): Code(s): K21.9 - Gastro-esophageal reflux disease without esophagitis Qualifiers: Esophagitis presence: esophagitis presence not specified Qualified Code(s): K21.9 - Gastro-esophageal reflux disease without esophagitis (9) Constipation: Code(s): K59.00 - Constipation, unspecified Qualifiers: Constipation type: slow transit constipation Qualified Code(s): K59.01 - Slow transit constipation Plan Will repeat liver panel and liver fibrosis in 3 months. Patient was encouraged to stay sober. High-protein, low-salt low-fat diet recommended. List of food high in protein given to patient. Continue with addiction medicine for help and support. Continue taking lactulose twice a day. Continue folic acid, omeprazole. May take Senokot on as needed basis. Patient is agreeable to current plan of care and verbalizes understanding of instructions. He was given the opportunity to ask questions and all questions answered. Thank you for allowing me to participate in his care Orders: Orders Liver Fibrosis Pnl 3 Months K76.0 - Fatty (change of) liver, not elsewhere classified Liver Panel 3 Months R74.01 - Elevation of levels of liver transaminase levels Coding Level of Care Code Est Pt Level 4 (43355) Diagnoses Alcohol use disorder F10.90 Alcoholic cirrhosis of liver without ascites K70.30 Hepatic cirrhosis type: alcoholic cirrhosis Ascites presence: without ascites Transaminitis R74.01 Hereditary hemochromatosis E83.110 Hemochromatosis type: hereditary Alcoholism F10.20 Postprandial epigastric pain R10.13 LLQ abdominal pain R10.32 Gastroesophageal reflux disease, unspecified whether esophagitis present K21.9 Esophagitis presence: esophagitis presence not specified Slow transit constipation K59.01 Constipation type: slow transit constipation Time Spent (min) 40 Comment 25 minutes spent with patient and additional 15 minutes spent reviewing his records
== END 2023-12-19 13:30 | disposition home or self-care (01) ==
PROVIDERS: PCP Internal Medicine; Visit Provider Nurse Practitioner Family
DX: F10.90 Alcohol use, unspecified, uncomplicated (principal); K70.30 Alcoholic cirrhosis of liver without ascites; R74.01 Elevation of levels of liver transaminase levels; E83.110 Hereditary hemochromatosis; F10.20 Alcohol dependence, uncomplicated; R10.13 Epigastric pain; R10.32 Left lower quadrant pain; K21.9 Gastro-esophageal reflux disease without esophagitis; K59.01 Slow transit constipation
CPT/HCPCS: 99214

== ENCOUNTER → 2023-12-19 12:53 | Outpatient (BNVA) | payer OTHER, SELFPAY | PROVIDERS: PCP Internal Medicine; Visit Provider Nurse Practitioner Family | DX: K70.30 Alcoholic cirrhosis of liver without ascites (principal); K21.9 Gastro-esophageal reflux disease without esophagitis; K59.01 Slow transit constipation; K76.0 Fatty (change of) liver, not elsewhere classified; R74.01 Elevation of levels of liver transaminase levels; E83.110 Hereditary hemochromatosis; F10.20 Alcohol dependence, uncomplicated; R10.32 Left lower quadrant pain | CPT/HCPCS: 99212 ==

== ENCOUNTER 2024-01-03 15:13 | Outpatient (AMB) | payer OTHER, SELFPAY ==
[2024-01-03 15:19] VITALS: BP 130/86; PULSE 111; O2SAT 97; BMI 27.1
--- NOTE | 2024-01-03 15:19 | MHC.PC.OV ---
Vital Signs 01/03/24 15:19 Height 6 ft 2 in Weight 211 lb BMI 27.1 BP 130/86 Blood Pressure Location Rt brachial Position Sitting Pulse 111 H Pulse Source Pulse Oximeter Pulse Oximetry (%) 97 Oxygen Delivery Method Room Air Intake Visit Reasons: 3M F/U Allergies No Known Allergies Allergy (Verified 01/03/24 15:23) Medication List - Last Reconciled 01/03/24 by Zander Coughlin MD apixaban (Eliquis) 5 mg PO BID atenolol 25 mg PO DAILY buprenorphine-naloxone 2-0.5 mg 1 film sublingual DAILY folic acid 1 mg PO DAILY gabapentin 100 mg PO TID 30 days lactulose 20 grams (30 mL) PO BIDWM lorazepam 1 mg PO TID PRN 30 days multivitamin with folic acid 400 mcg (Daily-Gerri (with folic acid)) 1 tab PO DAILY omeprazole 20 mg PO DAILY prednisone 10 mg PO DIRECTED sennosides (Natural Senna Laxative) 17.2 mg PO BEDTIME PRN thiamine mononitrate (vit B1) 100 mg PO DAILY Tobacco use date assessed: 01/03/24 Dental Screening Dental Screen Date: 01/03/24 Did you have a dental visit in the last 12 months?: Yes Did you have a dental problem in the last 6 months where you did not have access to dental care?: No Was dental information given to patient?: Patient has dentist HPI 3M F/U HPI Details 33 yo male with history of HTN, neuropathy, sensory ataxia w/ recurrent falls, alcoholism, thrombocytopenia, and superficial vein (left saphenous vein) thrombosis treated with Eliquis Patient is now Long history of alcohol abuse, LFTs elevated, patient is seeing Gastroenterology Has developed liver cirrhosis Recently relapsed last month ended up in emergency room Back on track stopped drinking and eating healthy Came in for lorazepam refill Refill sent for 3 months Patient is aware of side effect We talked about combination of lorazepam and gabapentin which can increase risk of drowsiness and fall I would not recommend taking them together He is also seeing pain management and is on gabapentin 100 mg 3 times a day He has stopped working and has applied for social security disability Blood pressure is stable patient is taking atenolol 25 mg Follow-up 3 months [facility] Medical History COVID Cirrhosis Neuropathy Sensory ataxia Clavicle fracture Alcohol abuse Foot pain, bilateral Abnormal complete blood count Abnormal liver enzymes No known health problems Surgical History Hx of skin graft Family History Paternal Grandfather Cancer Paternal Grandmother Cancer Social History Household Members: Spouse Housing: Condominium Do you presently have visiting nurse or other home services: No Alcohol intake: current Alcohol intake frequency: 3 or more drinks per day Alcohol type: hard liquor Comment: patient refusing bed alarm, steady on feet, high fall risk per CIWA [place] Patient Tobacco Use Status: Former Tobacco user Years Smoked: 10 e-Cigarette/Vaping Use: Currently Using Substance Use Type: Marijuana service: No 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 status: 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 Questionnaire Thrive Questionnaire Date Thrive assessed: 01/03/24 I am a: Patient What is your living situation today?: I have a steady place to live Within the past 12 months, did the food you bought not last and you didn't have the money to get more?: Often true Within the past 12 months, did you worry whether your food would run out before you got money to buy more?: Sometimes True Do you have trouble paying for medicines?: Yes Do you have trouble getting transportation to medical appointments?: I choose not to answer this question Do you have trouble paying your heating and electricity bill?: Yes Do you have trouble taking care of your child, family member or friend?: No Do you have trouble with day-to-day activities such as bathing, preparing meals, shopping, managing finances, etc.?: No Are you currently unemployed and looking for a job?: No Are you interested in more education?: No Please select the resources that you would like help with: None Currently or been in a relationship where the following occur: No concerns reported THRIVE Score: 3 AUDIT C Alcohol Use Questionnaire (AUDIT-C) 1. How often do you have a drink containing alcohol?: Monthly or less 2. How many drinks containing alcohol do you have on a typical day when you are drinking?: 7 to 9 3. How often do you have six or more drinks on one occasion?: Less than monthly Total Score: 5 Score Reviewed/Action Taken: Yes CONNOR-7 AMB Questionnaire CONNOR-7 Date CONNOR - 7 assessed: 01/03/24 Feeling nervous, anxious, or on edge: 3 = Nearly every day Not being able to stop or control worryin = Nearly every day Worrying too much about different things: 3 = Nearly every day Trouble relaxin = Nearly every day Being so restless that it is hard to sit still: 3 = Nearly every day Becoming easily annoyed or irritable: 2 = More than half the days Feeling afraid as if something awful might happen: 2 = More than half the days Total CONNOR-7 score (0-4 normal; 5-9 mild; 10-14 moderate; 15-21 severe): 19 Source: Developed by Drs. Michele Braswell, Andree Rodriguez, Niles Meléndez and colleagues, with an educational kel from [employer]. CONNOR-7 Assessment Billing CONNOR-7 Assessment Tool: CONNOR-7 Assessment 86377 Review of Systems Const Denies chills and Denies fever(s) ENT Denies epistaxis and Denies nasal discharge Card Denies chest pain Resp Denies chest congestion, Denies cough and Denies hemoptysis GI Denies diarrhea and Denies nausea Skin/Breast Denies rash Neuro Reports no additional complaints Psych Reports no additional complaints Endo Reports no additional complaints Physical exam (Primary Care) Vital Signs: Last Vital Signs Pulse 111 H 01/03/24 15:19 BP 130/86 01/03/24 15:19 Pulse Ox 97 01/03/24 15:19 Oxygen Delivery Method Room Air 01/03/24 15:19 BMI result Body Mass Index 27.1 Tobacco/Smoking Status: Tobacco use Status Tobacco use date assessed 01/03/24 01/03/24 15:23 Patient Tobacco Use Status Former Tobacco user 01/03/24 15:22 Tobacco use type 06/27/23 16:26 e-Cigarette/Vaping Use Currently Using 01/03/24 15:22 Thrive Assessment: Date of Thrive Assessment Date Thrive assessed 01/03/24 01/03/24 15:23 Currently or been in a relationship where the following occur: No concerns reported Const General: cooperative, comfortable and no acute distress Orientation/consciousness: patient oriented x3 HENMT Head: Yes normocephalic Eyes General: appearance normal, both eyes and all related structures Neck Neck: Yes supple Resp Effort & Inspection: normal respiratory effort, no cough and no stridor Cardio Rhythm: regular rhythm Heart sounds: S1 normal heart sound present and S2 normal heart sound present Skin General skin exam: turgor normal Neuro General: patient oriented x3, tone normal and moves all extremities Extrem Right lower extremity: no edema Left lower extremity: no edema Coding Level of Care Code Est Pt Level 4 (36656) Complex EM visit Add On G2211 Diagnoses Anxiety, generalized F41.1 Hypertension, essential I10 Alcoholic hepatitis without ascites K70.10 Ascites presence: without ascites Alcoholic cirrhosis of liver without ascites K70.30 Hepatic cirrhosis type: alcoholic cirrhosis Ascites presence: without ascites Coagulopathy D68.9 Moderate episode of recurrent major depressive disorder F33.1 Active/Remission status: currently active Major depression episode severity: moderate Neuropathy G62.9 LFT elevation R79.89 Thrombosis of left saphenous vein I82.812 Additional Codes CONNOR-7 Assessment Billing - CONNOR-7 Assessment Tool: CONNOR-7 Assessment [id number] ([id number]) Assessment & Plan Assessment & Plan (1) Anxiety, generalized: Code(s): F41.1 - Generalized anxiety disorder Category: Medical (2) Hypertension, essential: Code(s): I10 - Essential (primary) hypertension Category: Medical (3) Alcoholic hepatitis: Code(s): K70.10 - Alcoholic hepatitis without ascites Category: Medical Qualifiers: Ascites presence: without ascites Qualified Code(s): K70.10 - Alcoholic hepatitis without ascites (4) Cirrhosis: Code(s): K74.60 - Unspecified cirrhosis of liver Category: Medical Qualifiers: Hepatic cirrhosis type: alcoholic cirrhosis Ascites presence: without ascites Qualified Code(s): K70.30 - Alcoholic cirrhosis of liver without ascites (5) Coagulopathy: Code(s): D68.9 - Coagulation defect, unspecified Category: Medical (6) Major depression, recurrent: Code(s): F33.9 - Major depressive disorder, recurrent, unspecified Category: Medical Qualifiers: Active/Remission status: currently active Major depression episode severity: moderate Qualified Code(s): F33.1 - Major depressive disorder, recurrent, moderate (7) Neuropathy: Comment: Mild to moderate axonal sensory motor peripheral neuropathy. Code(s): G62.9 - Polyneuropathy, unspecified Category: Medical (8) LFT elevation: Code(s): R79.89 - Other specified abnormal findings of blood chemistry Category: Medical (9) Thrombosis of left saphenous vein: Code(s): I82.812 - Embolism and thrombosis of superficial veins of left lower extremity Category: Medical Plan 33 yo male with history of HTN, neuropathy, sensory ataxia w/ recurrent falls, alcoholism, thrombocytopenia, and superficial vein (left saphenous vein) thrombosis treated with Eliquis Patient is now Long history of alcohol abuse, LFTs elevated, patient is seeing Gastroenterology Has developed liver cirrhosis Recently relapsed last month ended up in emergency room Back on track stopped drinking and eating healthy Came in for lorazepam refill Refill sent for 3 months Patient is aware of side effect We talked about combination of lorazepam and gabapentin which can increase risk of drowsiness and fall I would not recommend taking them together He is also seeing pain management and is on gabapentin 100 mg 3 times a day He has stopped working and has applied for social security disability Blood pressure is stable patient is taking atenolol 25 mg Follow-up 3 months Medications: Refilled lorazepam 1 mg PO TID 30 days PRN 90 tabs 0RF anxiety
== END 2024-01-03 15:35 | disposition home or self-care (01) ==
PROVIDERS: PCP Internal Medicine; Visit Provider Internal Medicine
DX: D68.9 Coagulation defect, unspecified (principal); K70.10 Alcoholic hepatitis without ascites; K70.30 Alcoholic cirrhosis of liver without ascites; F33.1 Major depressive disorder, recurrent, moderate; I10 Essential (primary) hypertension; F41.1 Generalized anxiety disorder; G62.9 Polyneuropathy, unspecified; I82.812 Embolism and thrombosis of superficial veins of left lower extremity

== ENCOUNTER → 2024-01-03 15:13 | Outpatient (BNVA) | payer OTHER, SELFPAY | PROVIDERS: PCP Internal Medicine; Visit Provider Internal Medicine | DX: F41.1 Generalized anxiety disorder (principal); I10 Essential (primary) hypertension; K70.10 Alcoholic hepatitis without ascites; K70.30 Alcoholic cirrhosis of liver without ascites; D68.9 Coagulation defect, unspecified; F33.1 Major depressive disorder, recurrent, moderate; G62.9 Polyneuropathy, unspecified; R79.89 Other specified abnormal findings of blood chemistry; I82.812 Embolism and thrombosis of superficial veins of left lower extremity | CPT/HCPCS: 96127; 99212 ==

== ENCOUNTER 2024-01-06 09:15 | Outpatient (REF) | payer OTHER, SELFPAY ==
[2024-01-06 11:12] LABS: Iron 34 mcg/dL (45-160); Percent Iron Saturation 16 % (15-50); Total Iron Binding Capacity 214 mcg/dL (228-428); Unsaturated Iron Binding 180 ug/dL
[2024-01-06 11:17] LABS: Ferritin 246 ng/mL (20-250)
== END 2024-01-06 09:16 | disposition home or self-care (01) ==
LOC: HO.BBR 09:15
PROVIDERS: Visit Provider Internal Medicine Medical Oncology
DX: E83.110 Hereditary hemochromatosis (principal)
CPT/HCPCS: 36415; 82728; 83540

== ENCOUNTER 2024-01-17 13:52 | Outpatient (AMB) | payer OTHER, SELFPAY ==
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
== END 2024-01-17 14:45 | disposition home or self-care (01) ==
PROVIDERS: PCP Internal Medicine; Visit Provider Physician Assistant Surgical
DX: I80.03 Phlebitis and thrombophlebitis of superficial vessels of lower extremities, bilateral (principal)
CPT/HCPCS: 99204

== ENCOUNTER → 2024-01-17 13:52 | Outpatient (BNVA) | payer OTHER, SELFPAY | PROVIDERS: PCP Internal Medicine; Visit Provider Physician Assistant Surgical | DX: I80.03 Phlebitis and thrombophlebitis of superficial vessels of lower extremities, bilateral (principal); Z87.891 Personal history of nicotine dependence | CPT/HCPCS: 99202 ==

== ENCOUNTER 2024-01-31 15:30 | Outpatient (AMB) | payer OTHER, SELFPAY ==
--- NOTE | 2024-01-31 15:32 | A.OFFVIS_ITS ---
Vital Signs 01/31/24 15:34 Height 6 ft 2 in Weight 216 lb 0.848 oz BMI 27.7 BP 120/86 Blood Pressure Location Rt brachial Position Sitting Pulse 80 Pulse Source Pulse Oximeter Pulse Oximetry (%) 96 Oxygen Delivery Method Room Air Intake Visit Reasons: Follow up 3 months Intake Note: Relevant Flags or Indicators ? Requires Escort Service Attendant? N Marvel presents in office today for a scheduled 2 mos FUV. CC; Lab orders active and unfulfilled. Pt states that they have upcoming MRI per Dr. Coughlin in February of 2024. Relevant GI Sx as reported per pt? Nausea and vomiting - onset approximately within the last week. Pt states that it has somewhat subsided over the last 48 hours. Abd pain RUQ. Pt has had sporadic GI upset but nothing chronic or significant. ? Hx of any recent surgeries? None Escort Service Attendant Required: No Allergies No Known Allergies Allergy (Verified 01/31/24 15:34) HPI HPI Follow up 3 months: Details: LAST VISIT Alcohol use disorder Cirrhosis Transaminitis Hemochromatosis Alcoholism Postprandial epigastric pain LLQ abdominal pain GERD (gastroesophageal reflux disease) Constipation Plan Will repeat liver panel and liver fibrosis in 3 months. Patient was encouraged to stay sober. High-protein, low-salt low-fat diet recommended. List of food high in protein given to patient. Continue with addiction medicine for help and support. Continue taking lactulose twice a day. Continue folic acid, omeprazole. May take Senokot on as needed basis. Patient is agreeable to current plan of care and verbalizes understanding of instructions. He was given the opportunity to ask questions and all questions answered. ? Thank you for allowing me to participate in his care Orders Orders Liver Fibrosis Pnl 3 Months K76.0 Liver Panel 3 Months R74.01 TODAY'S VISIT Laboratory Tests 01/20/24 16:04 Total Bilirubin 4.5 H AST 273 H ALT 98 H Alkaline Phosphatase 294 H Patient is here today for follow-up. Patient some how did not have liver fibrosis done when he had his other blood work done on 19 of January. Continues to have a high liver enzymes. Patient tells me that he has been drinking. Last time that he had drink was last night. Patient does smell like alcohol and is little off today during the visit. Patient was encouraged to get his blood work done and we did talk about how important it is for him to quit drinking. Patient was sent to a day program and support to help him quit drinking, however patient states that he could not go as he is working few hours a day. [facility] Medical History COVID Cirrhosis Neuropathy Sensory ataxia Clavicle fracture Alcohol abuse Foot pain, bilateral Abnormal complete blood count Abnormal liver enzymes No known health problems Surgical History Hx of skin graft Family History Paternal Grandfather Cancer Paternal Grandmother Cancer Social History Household Members: Spouse Housing: Condominium Do you presently have visiting nurse or other home services: No Alcohol intake: current Alcohol intake frequency: 3 or more drinks per day [place] type: hard liquor Comment: patient refusing bed alarm, steady on feet, high fall risk [facility] [place] [facility] Patient Tobacco Use Status: Former Tobacco user Years Smoked: 10 e-Cigarette/Vaping Use: Currently Using Substance Use Type: Marijuana service: No 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 status: 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 Review of Systems Const Denies weight gain and Denies weight loss ENT Reports no additional complaints, Denies dysphagia and Denies odynophagia Card Reports no additional complaints Resp Reports no additional complaints GI Reports abdominal pain (Epigastric, occasional), Denies belching, Denies melena, Reports bloating (Occasional postprandially), Denies change in bowel habits, Reports constipation, Denies dysphagia, Denies excessive flatus, Denies dyspepsia, Reports heartburn (Occasional), Denies diarrhea, Denies loose stools, Denies nausea, Denies odynophagia and Denies vomiting Reports no additional complaints Musc Reports no additional complaints Neuro Reports no additional complaints Psych Reports no additional complaints Endo Reports no additional complaints Physical Exam Vital Signs: Last Vital Signs Pulse 80 01/31/24 15:34 BP 120/86 01/31/24 15:34 Pulse Ox 96 01/31/24 15:34 Oxygen Delivery Method Room Air 01/31/24 15:34 BMI result Body Mass Index 27.7 Const General: healthy appearing and no acute distress Orientation/consciousness: patient oriented x3 Resp Effort & Inspection: normal respiratory effort, able to speak in complete sentences, no tracheal deviation and symmetric chest movement Auscultation: clear to auscultation bilaterally Cardio Rate: regular rate GI Inspection: Yes normal to inspection, No distended and Yes obesity Palpation (GI): Soft to palpation, not firm, nontender and No hepatosplenomegaly present Auscultation: normal bowel sounds General: Yes no CVA tenderness Back/Spine/Pelvis Back: no CVA tenderness Skin General skin exam: elasticity normal, turgor normal and dry skin Neuro General: patient oriented x3 Psych Appearance: grossly normal Mental Status: mental status grossly normal Assessment & Plan Assessment & Plan (1) Alcohol use disorder: Code(s): F10.90 - Alcohol use, unspecified, uncomplicated Category: Medical (2) Cirrhosis: Code(s): K74.60 - Unspecified cirrhosis of liver Category: Medical Qualifiers: Hepatic cirrhosis type: alcoholic cirrhosis Ascites presence: without ascites Qualified Code(s): K70.30 - Alcoholic cirrhosis of liver without ascites (3) Hemochromatosis: Code(s): E83.119 - Hemochromatosis, unspecified Category: Medical Qualifiers: Hemochromatosis type: unspecified Qualified Code(s): E83.119 - Hemochromatosis, unspecified Plan Long discussion with patient about quitting alcohol and options for how he can do this. He currently is drinking. He admits that he drank yesterday although I believe that he also drank alcohol today. Patient will be sent for ultrasound of the liver. No ascites, no jaundice noted during exam today. Referral to addiction medicine to help with finding and the best way to detox. Omeprazole refilled. Patient was instructed to eat high-protein diet. Blood work from last appointment. Patient has MRI ordered for February. Follow-up in 6 months, sooner on as needed basis. He is agreeable to this plan and verbalizes understanding of instructions. He was given the opportunity to ask questions and all questions answered. Thank you for allowing me to participate in his care Orders: Orders US abdomen limited 01/31/24 R79.89 - Other specified abnormal findings of blood chemistry Referrals Addiction Medicine Referral F10.90 - Alcohol use, unspecified, uncomplicated Medications: Refilled omeprazole 20 mg PO DAILY 90 caps 3RF Coding Level of Care Code Est Pt Level 4 (68593) Complex EM visit Add On G2211 Diagnoses Alcohol use disorder F10.90 Alcoholic cirrhosis of liver without ascites K70.30 Hepatic cirrhosis type: alcoholic cirrhosis Ascites presence: without ascites Hemochromatosis, unspecified hemochromatosis type E83.119 Hemochromatosis type: unspecified Time Spent (min) 40 Comment 25 minutes spent with patient and additional 15 minutes spent reviewing his records
[2024-01-31 15:34] VITALS: BP 120/86; PULSE 80; O2SAT 96; BMI 27.7
== END 2024-01-31 16:06 | disposition home or self-care (01) ==
PROVIDERS: PCP Internal Medicine; Visit Provider Nurse Practitioner Family
DX: F10.90 Alcohol use, unspecified, uncomplicated (principal); K70.30 Alcoholic cirrhosis of liver without ascites; E83.119 Hemochromatosis, unspecified
CPT/HCPCS: 99214; G2211

== ENCOUNTER 2024-01-31 15:30 | Outpatient (REF) | payer OTHER, SELFPAY ==
[2024-01-31 17:31] LABS: Alanine Aminotransferase 95 U/L (0-40); Albumin Level 3.3 g/dL (3.5-5.0); Alkaline Phosphatase 330 U/L (39-117); Aspartate Amino Transferase 341 U/L (5-37); Bilirubin Direct 3.2 mg/dL (0.0-0.5); Total Protein 6.3 g/dL (6.5-8.0)
[2024-02-10 03:19] LABS: FIB-ALT 67 U/L (9-46); FIB-Alpha-2-Macroglobulin 235 mg/dL (106-279); FIB-Apolipoprotein A1 81 mg/dL (94-176); FIB-GGT 234 U/L (3-90); FIB-Haptoglobin 18 mg/dL (43-212); FIB-Total Bilirubin 4.2 mg/dL (0.2-1.2); Liver Fibrosis Score 0.96; Liver Fibrosis Stage F4; Nec Inflam Act Grade A3; Nec Inflam Act Score 0.64; Reference ID 5201966
== END 2024-01-31 15:31 | disposition home or self-care (01) ==
LOC: HO.LAB 15:30
PROVIDERS: PCP Internal Medicine; Visit Provider Nurse Practitioner Family
DX: K76.0 Fatty (change of) liver, not elsewhere classified (principal); R74.01 Elevation of levels of liver transaminase levels; F10.90 Alcohol use, unspecified, uncomplicated; K70.30 Alcoholic cirrhosis of liver without ascites; E83.119 Hemochromatosis, unspecified
CPT/HCPCS: 36415; 80076; 81596; 99212

== ENCOUNTER 2024-02-06 15:18 | Outpatient (REF) | payer OTHER, SELFPAY ==
[2024-02-06 17:02] LABS: Ferritin 142 ng/mL (20-250)
[2024-02-06 17:03] LABS: Iron 235 mcg/dL (45-160); Percent Iron Saturation 90 % (15-50); Total Iron Binding Capacity 260 mcg/dL (228-428); Unsaturated Iron Binding < 25 ug/dL
== END 2024-02-06 15:19 | disposition home or self-care (01) ==
LOC: HO.BBR 15:18
PROVIDERS: PCP Internal Medicine; Visit Provider Internal Medicine Medical Oncology
DX: E83.110 Hereditary hemochromatosis (principal)
CPT/HCPCS: 36415; 82728; 83540

== ENCOUNTER 2024-02-10 09:22 | Outpatient (REF) | payer OTHER, SELFPAY ==
--- NOTE | ~2024-02-10 | US_ITS ---
EXAMINATION: US ABDOMEN LIMITED CLINICAL INFORMATION: Other specified abnormal findings of blood chemistry. COMPARISON: MR abdomen 11/29/2023. CT abdomen and pelvis 11/27/2023. Ultrasound abdomen 07/19/2023 and 11/14/2020. TECHNIQUE: Real-time imaging of the right upper quadrant abdominal viscera. FINDINGS: PANCREAS: Not visualized obscured by bowel gas. LIVER: Heterogeneously echogenic liver enlarged, concerning for liver cirrhosis, measures 22.5 cm. Poor ultrasound beam penetration of the liver. Limited evaluation. No evidence of intra or extrahepatic biliary dilatation. GALLBLADDER: There is circumferential wall thickening of the gallbladder which measure up to 5 mm, there is pericholecystic fluid gallbladder is distended, there are gallstones. These findings combined raising the possibility of cholecystitis. No tenderness reported impressing on the gallbladder however. COMMON BILE DUCT: Normal in caliber measuring 1.0 cm in diameter. RIGHT KIDNEY: Normal. No hydronephrosis. No renal calculi or focal parenchymal lesions. The kidney measures 13.3 cm in maximum dimension. FREE FLUID: None. US/US abdomen limited IMPRESSION: 1. Exam somewhat limited, poor ultrasound beam penetration. 2. There is circumferential wall thickening of the gallbladder with pericholecystic fluid and gallstones raising the possibility of cholecystitis, there is no tenderness reported impressing on the gallbladder. Please correlate clinically, consider surgical evaluation, also may Consider correlation with follow-up HIDA scan. 3. Enlarged heterogeneously echogenic liver concerning for liver cirrhosis. 4. Pancreas not visualized obscured by bowel gas. (Referring physician staff is being called, by physician staff assistance, to be alerted of the above critical findings and recommendations.) 02/12/2024 4:49 PM SALES ACCOUNT COORDINATOR Electronically signed by: Michelle Rodriguez MD 02/12/2024 05:49 PM EST
== END 2024-02-10 09:23 | disposition home or self-care (01) ==
LOC: HO.US 09:22
PROVIDERS: PCP Internal Medicine; Visit Provider Nurse Practitioner Family
DX: R79.89 Other specified abnormal findings of blood chemistry (principal)
CPT/HCPCS: 76705

== ENCOUNTER 2024-02-12 15:18 | Outpatient (REF) | payer OTHER, SELFPAY | END 2024-02-12 15:19 | disposition home or self-care (01) | LOC: HO.MRI 15:18 | PROVIDERS: PCP Internal Medicine; Visit Provider Nurse Practitioner Family | DX: K74.60 Unspecified cirrhosis of liver (principal); K70.10 Alcoholic hepatitis without ascites; S36.119A Unspecified injury of liver, initial encounter | CPT/HCPCS: 74181 ==

== ENCOUNTER 2024-03-05 20:03 | Emergency (ER) | payer OTHER, SELFPAY ==
--- NOTE | ~2024-03-05 | US_ITS ---
EXAMINATION: US ABDOMEN LIMITED CLINICAL INFORMATION: Abdominal pain.. COMPARISON: None available. TECHNIQUE: Real-time imaging of the right upper quadrant abdominal viscera. FINDINGS: PANCREAS: Obscured by bowel gas LIVER: There is cirrhotic morphology of liver. Diffuse increased echogenicity of the parenchyma. Micronodule area of liver surface. No intrahepatic bile duct dilatation. No focal liver lesion. GALLBLADDER: Gallbladder is distended. There are a few small gallstones in the gallbladder. No gallbladder wall thickening or pericholecystic fluid. COMMON BILE DUCT: Normal in caliber measuring 0.4 cm in diameter. RIGHT KIDNEY: No hydronephrosis. No renal calculi or focal parenchymal lesions. The kidney measures 10.6 cm in maximum dimension. FREE FLUID: Small volume of abdominal ascites. US/US abdomen limited IMPRESSION: 1. Cirrhotic morphology of liver. 2. Cholelithiasis. No acute change of gallbladder wall. No bile duct dilatation. 3. Small volume of abdominal ascites. Electronically signed by: Hubert Pascual MD 03/05/2024 09:52 PM EST
[2024-03-05 20:19] VITALS: BP 129/87; PULSE 117; RESP 20; TEMP 36.9; O2SAT 98; BMI 28.5
--- NOTE | 2024-03-05 20:19 | ED.GENADULT ---
HPI - General Adult General Chief complaint: Abdominal Pain Stated complaint: abd pain Time Seen by Provider: 03/05/24 22:46 History of Present Illness ED Provider: Lam MONTERO narrative: The patient is a 34-year-old male with chronic alcoholism and alcoholic liver disease. He was hospitalized 3 months ago for worsening chronic liver disease. He had an ammonia 108. He was in the hospital for 11 days and his LFTs improved. He took steroids while in the hospital. He says that after leaving the hospital he was able to avoid alcohol entirely for 6 weeks. After that he admits to having resumed alcohol. He says he has been having about 6 drinks per week. He says that he has been having chronic abdominal pains for several months and he has also had worsening numbness and discomfort in his feet. He also feels that he is having worsening stretch sharpe on his abdomen. Today he had an outpatient appointment with hematology. Labs were done as part of that appointment. After the appointment he was texted by Dr. Irene's office to come to the emergency room because of concern about a rise in his bilirubin. The patient therefore came to the emergency room. He says that he was so nervous about coming to the emergency room that he had 2 shots of alcohol before coming. He said that it was 100 proof alcohol. No fevers. Related Data Home Medications ?Medication ?Instructions ?Recorded ?Confirmed buprenorphine 2 mg-naloxone 0.5 mg 1 film sublingual DAILY 12/31/21 03/05/24 sublingual film sennosides 8.6 mg tablet (Natural 17.2 mg PO BEDTIME PRN constipation 11/28/23 03/05/24 Senna Laxative) Previous Rx's ?Medication ?Instructions ?Recorded lactulose 20 gram/30 mL oral 20 g (30 mL) PO BIDWM #1,800 mL 12/07/23 solution gabapentin 100 mg capsule 100 mg PO TID 30 days #90 caps 12/13/23 atenolol 25 mg tablet 25 mg PO DAILY #90 tabs 12/22/23 potassium chloride 20 mEq 20 meq PO DAILY #30 tabs 01/20/24 tablet,extended release omeprazole 20 mg capsule,delayed 20 mg PO DAILY #90 caps 01/31/24 release lorazepam 1 mg tablet 1 mg PO TID PRN anxiety 30 days 02/15/24 #90 tabs Allergies Allergy/AdvReac Type Severity Reaction Status Date / Time No Known Allergies Allergy Verified 03/05/24 20:21 Review of Systems Review of Systems: Yes all other systems are reviewed and are negative [facility] Past Medical History Medical History COVID Cirrhosis Neuropathy Sensory ataxia Clavicle fracture Alcohol abuse Foot pain, bilateral Abnormal complete blood count Abnormal liver enzymes No known health problems Surgical History Hx of skin graft Family History Family History Paternal Grandfather Cancer Paternal Grandmother Cancer Social History Social History Household Members: Spouse Housing: Condominium Do you presently have visiting nurse or other home services: No Alcohol intake: current Alcohol intake frequency: 3 or more drinks per day Alcohol type: hard liquor Comment: patient refusing bed alarm, steady on feet, high fall risk per [facility] Patient Tobacco Use Status: Former Tobacco user Years Smoked: 10 e-Cigarette/Vaping Use: Currently Using Substance Use Type: Marijuana service: No 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 status: 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 He has edema of his lower legs. His eyes are obviously icteric. Does not seem in acute distress however. HENMT Other: The face is slightly puffy. The face is symmetrical. Mucous membranes are moist. Eyes Other: Pupils are round equal, conjunctivae are icteric Neck Other: no JVD, the neck is supple Resp Effort & Inspection: normal respiratory effort Auscultation: clear to auscultation bilaterally Cardio Rate: regular rate Rhythm: regular rhythm Heart sounds: S1 normal heart sound present and S2 normal heart sound present GI Other: the abdomen is mildly protuberant but not frankly distended. It is not tense or firm. He reports diffuse abdominal tenderness. He has very prominent stretch sharpe on his abdomen. Skin Other: The skin is pale and dry. He is mildly icteric. He has some edema of the lower legs. Neuro Other: The patient is awake and alert. He seems to have a fairly clear mental status. He does not seem encephalopathic. Cranial nerves are intact. He moves his extremities symmetrically Extrem Other: the patient has bilateral and symmetrical edema of the lower legs and feet. Course Course Course Narrative: RmE: 34-year-old male presents to ED for abdominal pain. Right upper quadrant again generalized abdominal pain. Labs ultrasound ordered. UA ordered. Medical Decision Making Medical Decision Making [facility] Narrative: The patient is a 34-year-old male with significant alcoholism and alcoholic liver disease who is continuing to drink alcohol. He was last hospitalized for complications of his alcoholic liver disease 3 months ago. He was hospitalized for 11 days. he took a course of steroids during hospitalization. He says that he abstained from alcohol for about 6 weeks after that hospitalization but has subsequently resumed alcohol and says he is having approximately 6 alcoholic beverages per week. He was sent to the emergency room after having had outpatient lab work following a hematology office visit. There had been a rise in his bilirubin he was sent to the emergency room out of concern for the possibility that this could represent a gallbladder problem. The patient's labs are consistent with his chronic and severe alcoholic liver disease. an ultrasound of his gallbladder today shows gallstones but no other signs of cholecystitis. I think the patient's worsening bilirubin is likely a consequence of his resumption of alcohol use and ongoing chronic worsening alcoholic liver disease. I do not see that there is an acute indication for hospitalization today. I explained to the patient that given his severe liver disease that moderate or even mild ongoing use of alcohol would be essentially fatal and that he could not expect any chance of improvement if he continued to use alcohol in any amount. I explained that his alcohol level today of 199 was very high and that if he continues to use alcohol in this manner there will not be any chance of his liver disease improving. He will be discharged with instructions to completely abstain from alcohol and follow up with his regular doctors. Lab Data 03/05/24 20:26 12/09/24 20:26 Labs: Lab Results 03/05/24 Range/Units 20:26 WBC 11.3 H (4.8-10.8) X10*3/uL RBC 4.40 L (4.60-5.80) X10*6/uL Hgb 14.5 (14.0-18.0) g/dl Hct 41.6 L (42.0-52.0) % MCV 94.5 (80.0-98.0) fL MCH 33.0 (27.0-33.0) pg MCHC 34.9 (31.0-36.0) g/dl RDW 15.7 (11.0-16.0) % Plt Count 211 (160-400) X10*3/uL MPV 11.0 (9.4-12.4) fL Immature Gran % (Auto) 0.3 (0.0-0.4) % Neut % (Auto) 76.9 H (45-73) % Lymph % (Auto) 13.4 L (20-40) % [place] % (Auto) 6.9 (2-11) % Eos % (Auto) 1.9 (0-4) % Baso % (Auto) 0.6 (0-2) % Lymph # (Auto) 1.5 (1.2-4.9) X10*3/uL [place] # (Auto) 0.8 (0.1-1.2) X10*3/uL Eos # (Auto) 0.2 (0.0-0.4) X10*3/uL Baso # (Auto) 0.1 (0.0-0.2) X10*3/uL Abs Immat Gran (auto) 0.03 (0.00-0.03) X10*3/uL Absolute Neuts (auto) 8.7 H (2.0-8.3) x10*3/uL Absolute Nucleated RBC 0.000 (0.0-0.012) X10*3/uL Nucleated RBC % (auto) 0.0 (0.0-0.2) /100WBC PT 18.4 H (10.9-12.4) SEC INR 1.6 H (0.9-1.1) APTT 35.6 (26.0-36.8) SEC Sodium 135 (135-145) mmol/L Potassium 3.6 (3.3-5.1) mmol/L Chloride 105 (96-108) mmol/L Carbon Dioxide 19 L (22-29) mmol/L Anion Gap 15 (12-20) BUN 5 L (9-16) mg/dL Creatinine 0.73 (0.5-1.4) mg/dL Estim Creat Clear Calc 180.6 Estimated GFR > 60 Random Glucose 209 H (60-115) mg/dL Calcium 7.8 L D (8.4-10.2) mg/dL Total Bilirubin 9.2 H (0.0-1.0) mg/dL Direct Bilirubin 6.4 H (0.0-0.5) mg/dL AST 163 H (5-37) U/L ALT 66 H (0-40) U/L Alkaline Phosphatase 295 H (39-117) U/L C-Reactive Protein 3.42 H (< or = 0.50) mg/dL Total Protein 6.0 L (6.5-8.0) g/dL Albumin 2.9 L (3.5-5.0) g/dL Lipase 57 (8-78) U/L Ethyl Alcohol 199 mg/dL Discharge Plan Discharge Clinical Impression: Abdominal pain, Alcoholic liver disease, Abnormal liver function tests Patient Disposition: Home, Self-Care Additional Instructions: Your liver tests are somewhat worse today but not as bad as when you were hospitalized in November. The ultrasound does not show that you have an acute problem with your gallbladder. My recommendation is that you stop all alcohol use now and for the rest of your life. As long as you continue to have any alcohol at all your liver problems we will continue to get worse. The same is true of the symptoms in your feet. Therefore please try very hard not to have any alcohol at all. Please contact Ese Guidry office tomorrow morning to see if you can get an appointment at her office. She may be all able to offer strategies to help stay off alcohol. Also contact your primary care doctor in your credit and collections analyst for a follow up appointment promptly. Return to the emergency room if you feel significantly worse. Prescriptions: No Action atenolol 25 mg tablet 25 mg PO DAILY Qty: 90 0RF lorazepam 1 mg tablet 1 mg PO TID PRN (Reason: anxiety) 30 Days Qty: 90 0RF potassium chloride 20 mEq Tablet Extended Release 20 meq PO DAILY Qty: 30 1RF sennosides [Natural Senna Laxative] 8.6 mg tablet 17.2 mg PO BEDTIME PRN (Reason: constipation) lactulose 20 gram/30 mL Solution 20 g PO BIDWM Qty: 1800 0RF buprenorphine-naloxone 2-0.5 mg film 1 film sublingual DAILY gabapentin 100 mg capsule 100 mg PO TID 30 Days Qty: 90 4RF omeprazole 20 mg capsule,delayed release(DR/EC) 20 mg PO DAILY Qty: 90 3RF Referrals: Zander Coughlin MD [Primary Care Provider] - (Worsening LFTs, ongoing alcohol use) Leida Guerrero FNP-BC [Nurse Practitioner] - (Worsening LFTs, ongoing alcohol use) Ese Guidry CNP [Nurse Practitioner] - (Ongoing drinking despite significant chronic liver disease) Interventions: ED Discharge Assessment Last Done: 03/05/24 23:30 Discharge Date/Time: 03/05/24 23:31 Print Language: Serbian
[2024-03-05 20:31] LABS: MANUAL DIFF FLAG NO
[2024-03-05 20:32] LABS: Basophils Absolute Auto 0.1 X10*3/uL (0.0-0.2); Basophils Percent Auto 0.6 % (0-2); Eosinophils Absolute Auto 0.2 X10*3/uL (0.0-0.4); Eosinophils Percent Auto 1.9 % (0-4); Hematocrit 41.6 % (42.0-52.0); Hemoglobin 14.5 g/dl (14.0-18.0); Imm Gran Abs Auto 0.03 X10*3/uL (0.00-0.03); Imm Gran Pct Auto 0.3 % (0.0-0.4); Lymphocytes Absolute Auto 1.5 X10*3/uL (1.2-4.9); Lymphocytes Percent Auto 13.4 % (20-40); Mean Corpuscular HGB Conc 34.9 g/dl (31.0-36.0); Mean Corpuscular Volume 94.5 fL (80.0-98.0); Monocytes Absolute Auto 0.8 X10*3/uL (0.1-1.2); Monocytes Percent Auto 6.9 % (2-11); Neutrophils Absolute Auto 8.7 x10*3/uL (2.0-8.3); Neutrophils Percent Auto 76.9 % (45-73); Platelet Count 211 X10*3/uL (160-400); Red Cell Distribution Width 15.7 % (11.0-16.0); White Blood Count 11.3 X10*3/uL (4.8-10.8)
[2024-03-05 20:41] LABS: INTERNATIONAL NORM RATIO 1.6 (0.9-1.1); Prothrombin Time 18.4 SEC (10.9-12.4)
[2024-03-05 20:44] LABS: Partial Thromboplastin Time 35.6 SEC (26.0-36.8)
[2024-03-05 20:51] LABS: Alanine Aminotransferase 66 U/L (0-40); Albumin Level 2.9 g/dL (3.5-5.0); Alkaline Phosphatase 295 U/L (39-117); Anion Gap 15 (12-20); Aspartate Amino Transferase 163 U/L (5-37); Bilirubin Total 9.2 mg/dL (0.0-1.0); Blood Urea Nitrogen 5 mg/dL (9-16); Calcium 7.8 mg/dL (8.4-10.2); Carbon Dioxide 19 mmol/L (22-29); Chloride 105 mmol/L (96-108); Creatinine Clr Calc Pharmacy 180.6; Estimated Glomerular Filt Rate > 60; Glucose Random 209 mg/dL (60-115); Lipase 57 U/L (8-78); Potassium 3.6 mmol/L (3.3-5.1); Sodium 135 mmol/L (135-145)
[2024-03-05 22:40] VITALS: BP 108/75; PULSE 97; RESP 18; TEMP 36.8; O2SAT 95
--- NOTE | 2024-03-05 22:54 | MHC.EDTECH ---
Patient came in from the waiting room,changed into hospital attire,vitals taken,pillow given,pt is resting quietly,call mallory in reach
[2024-03-05 23:05] LABS: Bilirubin Direct 6.4 mg/dL (0.0-0.5); Ethanol 199 mg/dL
[2024-03-05 23:30] VITALS: BP 108/75; PULSE 97; RESP 18; TEMP 36.8; O2SAT 95
[2024-03-05 23:39] LABS: C Reactive Protein 3.42 mg/dL (< or = 0.50)
== END 2024-03-05 23:31 | disposition home or self-care (01) ==
PROVIDERS: Physician Assistant; Emergency Provider Emergency Medicine; PCP Internal Medicine
DX: R10.2 Pelvic and perineal pain (principal); K70.9 Alcoholic liver disease, unspecified; R79.89 Other specified abnormal findings of blood chemistry; Z51.81 Encounter for therapeutic drug level monitoring; Z79.899 Other long term (current) drug therapy
CPT/HCPCS: 36415; 76705; 80053; 80307; 82248; 83690; 85025; 85610; 85730; 86140; 99283; 99284

== ENCOUNTER 2024-03-13 14:33 | Outpatient (AMB) | payer OTHER, SELFPAY ==
--- NOTE | 2024-03-13 14:36 | A.OFFVIS_ITS ---
Vital Signs 03/13/24 14:38 Height 6 ft 2 in Weight 217 lb 13.067 oz BMI 28.0 BP 109/73 Blood Pressure Location Lt brachial Position Sitting Pulse 92 Pulse Source Pulse Oximeter Intake Visit Reasons: 6 weeks f/u Intake Note: ESTABLISHED PATIENT Marvel presents in office today for a scheduled 1.5 mos FUV. Patient reports that he was seen here at [facility] due to abdominal pain. States that he feels nauseous making is difficult to eat. States his last alcoholic beverage was the same day he was seen at the ER. Allergies No Known Allergies Allergy (Verified 03/13/24 14:42) HPI HPI 6 weeks f/u: Details: LAST VISIT 01/31/2024 Alcohol use disorder Cirrhosis Hemochromatosis Plan Long discussion with patient about quitting alcohol and options for how he can do this. He currently is drinking. He admits that he drank yesterday although I believe that he also drank alcohol today. Patient will be sent for ultrasound of the liver. No ascites, no jaundice noted during exam today. Referral to addiction medicine to help with finding and the best way to detox. Omeprazole refilled. Patient was instructed to eat high-protein diet. Blood work from last appointment. Patient has MRI ordered for February. Follow-up in 6 months, sooner on as needed basis. He is agreeable to this plan and verbalizes understanding of instructions. He was given the opportunity to ask questions and all questions answered. ? Thank you for allowing me to participate in his care Orders Orders US abdomen limited 01/31/24 R79.89 Referrals Addiction Medicine Referral F10.90 Medications Refilled omeprazole 20 mg PO DAILY 90 caps 3RF ED VISIT 03/05/2024 Medical Decision Making MDM Narrative: The patient is a 34-year-old male with significant alcoholism and alcoholic liver disease who is continuing to drink alcohol. He was last hospitalized for complications of his alcoholic liver disease 3 months ago. He was hospitalized for 11 days. he took a course of steroids during hospitalization. He says that he abstained from alcohol for about 6 weeks after that hospitalization but has subsequently resumed alcohol and says he is having approximately 6 alcoholic beverages per week. He was sent to the emergency room after having had outpatient lab work following a hematology office visit. There had been a rise in his bilirubin he was sent to the emerg ency room out of concern for the possibility that this could represent a gallbladder problem. The patient's labs are consistent with his chronic and severe alcoholic liver disease. an ultrasound of his gallbladder today shows gallstones but no other signs of cholecystitis. I think the patient's worsening bilirubin is likely a consequence of his resumption of alcohol use and ongoing chronic worsening alcoholic liver disease. I do not see that there is an acute indication for hospitalization today. I explained to the patient that given his severe liver disease that moderate or even mild ongoing use of alcohol would be essentially fatal and that he could not expect any chance of improvement if he continued to use alcohol in any amount. I explained that his alcohol level today of 199 was very high and that if he continues to use alcohol in this manner there will not be any chance of his liver disease improving. He will be discharged with instructions to completely abstain from alcohol and follow up with his regular doctors. TODAY'S VISIT Patient is here today for follow-up. Patient has been feeling worse since last visit and since visit in the ER, see above note. Patient was seen on March 05 by his oncologist for hemochromatosis. Reported abdominal pain. Pain was not changed, however he was more nauseous. He admits to be drinking alcohol day before and the day of. Did not want to go to ED, however after Dr. Irene seen lab results she called patient and ask him to go to ER. Patient was found to have alcohol level of 199. His liver enzymes were as follow: Laboratory Tests 03/05/24 03/05/24 15:20 20:26 Total Bilirubin 9.7 H 9.2 H Direct Bilirubin 6.4 H AST 171 H 163 H ALT 63 H 66 H Alkaline Phosphatase 297 H 295 H ABDOMINAL ULTRASOUND SHOWED: IMPRESSION: 1. Cirrhotic morphology of liver. 2. Cholelithiasis. No acute change of gallbladder wall. No bile duct dilatation. 3. Small volume of abdominal ascites After careful review of all his tests there is a mention of thickening of gallbladder wall questioning possible cholecystitis. Patient reports pain in the right upper quadrant that has been worsening. Tender to touch. He also feels nauseous. He is not moving his bowels no bowel movements for 2-3 days and when he does have a bowel movement is very small amount. Patient is not taking his lactulose as prescribed. Feeling nauseous and I unable to eat. Discussed MRI reports CT scan report and ultrasound with Dr. Batres in General surgery and will be referring patient to him. Patient denies any melena, hematochezia, unintentional weight loss or ribbon like stools. When asked patient about last drink patient reports that he had it the day that he was in the ER. [facility] Medical History COVID Cirrhosis Neuropathy Sensory ataxia Clavicle fracture Alcohol abuse Foot pain, bilateral Abnormal complete blood count Abnormal liver enzymes No known health problems Surgical History Hx of skin graft Family History Paternal Grandfather Cancer Paternal Grandmother Cancer Social History Household Members: Spouse Housing: Condominium Do you presently have visiting nurse or other home services: No Alcohol intake: current Alcohol intake frequency: 3 or more drinks per day Alcohol type: hard liquor Comment: patient refusing bed alarm, steady on feet, high fall risk per ROBBY cummings Patient Tobacco Use Status: Former Tobacco user Years Smoked: 10 e-Cigarette/Vaping Use: Currently Using Substance Use Type: Marijuana service: No 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 status: 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 Review of Systems Const Denies weight gain and Denies weight loss ENT Reports no additional complaints, Denies dysphagia and Denies odynophagia Card Reports no additional complaints Resp Reports no additional complaints GI Denies abdominal pain, Denies belching, Denies melena, Denies bloating, Denies change in bowel habits, Reports constipation, Denies dysphagia, Denies excessive flatus, Reports dyspepsia, Reports heartburn, Denies diarrhea, Denies loose stools, Reports nausea, Denies odynophagia and Denies vomiting Reports no additional complaints Musc Reports no additional complaints Neuro Reports no additional complaints Psych Reports no additional complaints Endo Reports no additional complaints Physical Exam Const General: no acute distress Orientation/consciousness: patient oriented x3 Resp Effort & Inspection: normal respiratory effort, able to speak in complete sentences, no tracheal deviation and symmetric chest movement Auscultation: clear to auscultation bilaterally Cardio Rate: regular rate GI Inspection: Yes normal to inspection, Yes distended and Yes obesity Palpation (GI): Soft to palpation, not firm, nontender and No hepatosplenomegaly present Auscultation: normal bowel sounds General: Yes no CVA tenderness Back/Spine/Pelvis Back: no CVA tenderness Skin General skin exam: elasticity normal, turgor normal and dry skin Neuro General: patient oriented x3 Psych Appearance: grossly normal Mental Status: mental status grossly normal Assessment & Plan Assessment & Plan (1) Postprandial abdominal pain in right upper quadrant: Code(s): R10.11 - Right upper quadrant pain Category: Medical (2) Peripancreatic fluid collection: Code(s): K86.89 - Other specified diseases of pancreas Category: Medical (3) Cirrhosis: Code(s): K74.60 - Unspecified cirrhosis of liver Category: Medical Qualifiers: Hepatic cirrhosis type: alcoholic cirrhosis Ascites presence: without ascites Qualified Code(s): K70.30 - Alcoholic cirrhosis of liver without ascites (4) Alcohol use disorder: Code(s): F10.90 - Alcohol use, unspecified, uncomplicated Category: Medical (5) Hemochromatosis: Code(s): E83.119 - Hemochromatosis, unspecified Category: Medical Qualifiers: Hemochromatosis type: unspecified Qualified Code(s): E83.119 - Hemochromatosis, unspecified Plan Case was discussed with Dr. Batres in General surgery who will see patient as an outpatient and sent for possible surgery. Patient had ultrasound done in the ER on March 05 that showed cholelithiasis without cholecystitis, however patient does report constant pain when eating. Patient was encouraged to go and get his blood work done again today. Will also rule out anemia. Patient does look a little pale. Patient was encouraged to call addiction medicine for appointment. Patient was noncompliant with appointments in the past. Discussed with him the importance and seriousness of his disease and if he continues to drink he will never be able to save his liver or get on the transplant list. Patient was encouraged to go to ER if his pain will get stronger and if he will not be able to keep anything down. Patient is to keep hydrated. Avoid drinking Gatorade as there is too much salt in it. Any sports drinks that have high sodium content. Low-salt, low-fat, low carb and high-protein diet recommended. Patient does have list of food and examples at home. Patient will be seen in 3- 4 weeks, sooner on as needed basis. He is agreeable to this plan and verbalizes understanding of instructions. He was given the opportunity to ask questions and all questions answered. Thank you for allowing me to participate in his care Appointment with Dr. Batres was made for tomorrow Orders: Orders Complete Blood Count no Diff Today K21.9 - Gastro-esophageal reflux disease without esophagitis Comprehensive Met. Panel Today K21.9 - Gastro-esophageal reflux disease without esophagitis Referrals General Surgery Referral K80.20 - Calculus of gallbladder without cholecystitis without obstruction, R10.11 - Right upper quadrant pain Medications: New bisacodyl (Dulcolax (bisacodyl)) 10 mg (2 x 5 mg) PO BEDTIME 180 tabs 4RF ondansetron 4 mg PO Q8H PRN 20 tabs 0RF nausea and vomiting R11.0 - Nausea Coding Level of Care Code Est Pt Level 4 (73831) Diagnoses Postprandial abdominal pain in right upper quadrant R10.11 Peripancreatic fluid collection K86.89 Alcoholic cirrhosis of liver without ascites K70.30 Hepatic cirrhosis type: alcoholic cirrhosis Ascites presence: without ascites Alcohol use disorder F10.90 Hemochromatosis, unspecified hemochromatosis type E83.119 Hemochromatosis type: unspecified Time Spent (min) 40 Comment 25 minutes spent with patient and 15 minutes spent reviewing his records
[2024-03-13 14:38] VITALS: BP 109/73; PULSE 92; BMI 28.0
== END 2024-03-14 08:29 | disposition home or self-care (01) ==
PROVIDERS: PCP Internal Medicine; Visit Provider Nurse Practitioner Family
DX: R10.11 Right upper quadrant pain (principal); K86.89 Other specified diseases of pancreas; K70.30 Alcoholic cirrhosis of liver without ascites; F10.90 Alcohol use, unspecified, uncomplicated; E83.119 Hemochromatosis, unspecified
CPT/HCPCS: 99214

== ENCOUNTER → 2024-03-13 14:33 | Outpatient (BNVA) | payer OTHER, SELFPAY | PROVIDERS: PCP Internal Medicine; Visit Provider Nurse Practitioner Family | DX: R10.11 Right upper quadrant pain (principal); F10.20 Alcohol dependence, uncomplicated; Y90.6 Blood alcohol level of 120-199 mg/100 ml; E83.119 Hemochromatosis, unspecified; K86.89 Other specified diseases of pancreas; K70.30 Alcoholic cirrhosis of liver without ascites | CPT/HCPCS: 99212 ==

== ENCOUNTER 2024-03-15 15:19 | Outpatient (AMB) | payer OTHER, SELFPAY ==
--- NOTE | 2024-03-15 15:19 | A.OFFVIS_ITS ---
Vital Signs 03/15/24 15:27 Height 6 ft 2 in Weight 218 lb 2 oz BMI 28.0 BP 130/78 Blood Pressure Location Lt brachial Position Sitting Pulse 105 H Intake Visit Reasons: Gallbladder Intake Note: Patient is seen in office for evaluation of the gallbladder. Pt c/o: onset increase pain for 2 months, unable to eat a solid meal in aprox 2 weeks, no energy, unable to hold food down, admits to nausea, vomit, diarrhea us abd: 03/05/24 Systems Requirements Planner Required: No Accompanied by: Self / Same As Patient Allergies No Known Allergies Allergy (Verified 03/15/24 15:25) HPI Comments Details: 34-year-old male patient presenting for evaluation of abdominal pain in the right upper quadrant. The pain seems to be fairly constant but does increase in severity after eating. His appetite is very poor and he does report nausea and vomiting and eating. This has persisted for several months and seems to be worsening. He occasionally has fever and chills as well. Workup with abdominal ultrasound and MRI of the abdomen confirmed cholelithiasis but no evidence of cholecystitis with no wall thickening, pericholecystic fluid or ductal dilatation. He was evaluated by Gastroenterology and cholecystectomy recommended. COUNT INCLUDES [facility] Medical History Postprandial abdominal pain in right upper quadrant COVID Cirrhosis Neuropathy Sensory ataxia Clavicle fracture Alcohol abuse Foot pain, bilateral Abnormal complete blood count Abnormal liver enzymes No known health problems Surgical History Hx of skin graft Family History Paternal Grandfather Cancer Paternal Grandmother Cancer Social History Household Members: Spouse Housing: Condominium Do you presently have visiting nurse or other home services: No Alcohol intake: current Alcohol intake frequency: 3 or more drinks per day Alcohol type: hard liquor Comment: patient refusing bed alarm, steady on feet, high fall risk per CIWA protoca Patient Tobacco Use Status: Former Tobacco user Years Smoked: 10 e-Cigarette/Vaping Use: Currently Using Substance Use Type: Marijuana service: No 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 status: 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 Review of Systems Const All systems reviewed & are unremarkable except as noted in HPI and below GI Reports abdominal pain, Denies hematochezia, Reports nausea and Reports vomiting Physical Exam Vital Signs: Last Vital Signs Pulse 105 H 03/15/24 15:27 BP 130/78 03/15/24 15:27 BMI result Body Mass Index 28.0 Const General: cooperative and no acute distress Nutritional Appearance: well nourished Orientation/consciousness: patient oriented x3 Limitations: no limitations HEENT Head: Yes normocephalic and Yes atraumatic Ears: hearing grossly normal bilaterally Resp Effort & Inspection: normal respiratory effort, no audible wheezes, no cough and no respiratory distress Cardio Jugular venous distension: no JVD GI Inspection: Yes normal to inspection Palpation (GI): Soft to palpation, Tenderness to palpation present (GI) in the RUQ; Duran's sign negative, no guarding and not rigid Skin Other: Warm, dry, no rash Neuro General: patient oriented x3 Extrem General: Yes no clubbing, cyanosis or edema Assessment & Plan Assessment & Plan (1) Abnormal liver enzymes: Code(s): R74.8 - Abnormal levels of other serum enzymes Category: Medical (2) Chronic cholecystitis due to cholelithiasis with choledocholithiasis: Code(s): K80.64 - Calculus of gallbladder and bile duct with chronic cholecystitis without obstruction Category: Medical Plan 34-year-old male patient presenting with persistent right upper quadrant abdominal pain found to have multiple gallstones within the neck of the gallbladder by ultrasound and MRI. Patient also has a history of alcohol related cirrhosis which may confound his symptoms. We discussed the possibility of laparoscopic or open cholecystectomy as a possible option although it is difficult to know if his symptoms wall improve with surgery. After discussion of the procedure, risks, and alternatives, he consents to a laparoscopic or possible open cholecystectomy. Coding Level of Care Code New Pt Level 4 (73869) Diagnoses Abnormal liver enzymes R74.8 Chronic cholecystitis due to cholelithiasis with choledocholithiasis K80.64
[2024-03-15 15:27] VITALS: BP 130/78; PULSE 105; BMI 28.0
== END 2024-03-15 15:39 | disposition home or self-care (01) ==
PROVIDERS: PCP Internal Medicine; Visit Provider Surgery
DX: R74.8 Abnormal levels of other serum enzymes (principal); K80.64 Calculus of gallbladder and bile duct with chronic cholecystitis without obstruction
CPT/HCPCS: 99204

== ENCOUNTER → 2024-03-15 15:19 | Outpatient (BNVA) | payer OTHER, SELFPAY | PROVIDERS: PCP Internal Medicine; Visit Provider Surgery | DX: R74.8 Abnormal levels of other serum enzymes (principal); K80.64 Calculus of gallbladder and bile duct with chronic cholecystitis without obstruction | CPT/HCPCS: 99202 ==

== ENCOUNTER 2024-03-31 17:13 | Emergency (ER) | payer OTHER, SELFPAY ==
--- NOTE | ~2024-03-31 | US_ITS ---
CLINICAL HISTORY: PAIN known stones r o acute cholecystitis US abdomen limited Comparison: US/SR - US ABDOMEN LIMITED - 03/05/24 20:57 EST Findings: The visualized pancreas is normal. The aorta and inferior vena cava are normal caliber. The liver is normal in size and echotexture. There is no intrahepatic bile duct dilatation. The common duct is 6 mm in diameter. The gallbladder is normal. There is no sonographic Duran sign. The main portal vein is antegrade. Perihepatic ascites. IMPRESSION: Perihepatic ascites. No signs of acute cholecystitis. This document has been electronically signed by: Steve Wilson MD on 04/01/2024 01:03:01
[2024-03-31 17:21] VITALS: BP 146/97; PULSE 134; RESP 16; TEMP 36.8; O2SAT 95; BMI 26.3
--- NOTE | 2024-03-31 17:21 | ED.ABDPAIN ---
HPI - Abdominal Pain General Chief Complaint: Abdominal Pain Stated Complaint: severe abd pain,jaundice Time Seen by Provider: 03/31/24 21:53 Source: patient Mode of arrival: ambulatory Limitations: no limitations History of Present Illness ED Provider: Dr. Clementine Preston HPI narrative: Patient comes to the emergency room complaining of worsening abdominal pain. Patient states that he is known to have gallbladder stones and has chronic abdominal pain, but over last few days it has gotten much worse and he can not tolerate the pain. Patient states that he has been in touch with Dr. Batres from surgery, patient states that he has been told that eventually he will need a cholecystectomy. Patient states that he has not had any alcohol for over 2 months. Patient states that today he has worsening right upper quadrant pain. However, this time, the pain is a bit different since he has diffuse abdominal discomfort. Patient denies fever chills, patient complaining of dysuria only in the mornings when he urinates the 1st time of the day. Denies flank pain Related Data Home Medications ?Medication ?Instructions ?Recorded ?Confirmed buprenorphine 2 mg-naloxone 0.5 mg 1 film sublingual DAILY 12/31/21 04/01/24 sublingual film Previous Rx's ?Medication ?Instructions ?Recorded lactulose 20 gram/30 mL oral 20 g (30 mL) PO BIDWM #1,800 mL 12/07/23 solution gabapentin 100 mg capsule 100 mg PO TID 30 days #90 caps 12/13/23 atenolol 25 mg tablet 25 mg PO DAILY #90 tabs 12/22/23 potassium chloride 20 mEq 20 meq PO DAILY #30 tabs 01/20/24 tablet,extended release omeprazole 20 mg capsule,delayed 20 mg PO DAILY #90 caps 01/31/24 release bisacodyl 5 mg tablet,delayed 10 mg (2 x 5 mg) PO BEDTIME #180 03/13/24 release (Dulcolax (bisacodyl)) tabs ondansetron 4 mg disintegrating 4 mg PO Q8H PRN nausea and 03/13/24 tablet vomiting #20 tabs lorazepam 1 mg tablet 1 mg PO TID PRN anxiety 30 days 03/27/24 #90 tabs tramadol 50 mg tablet 50 mg PO BID PRN pain #8 tabs 04/01/24 Allergies Allergy/AdvReac Type Severity Reaction Status Date / Time No Known Allergies Allergy Verified 04/01/24 04:17 Review of Systems Review of Systems Constitutional : No Weight loss, No Fever, No Chills, No Night Sweats, No Fatigue, No Malaise ENT/Mouth : No Hearing loss, No Ear Pain, No Nasal Congestion, No Sinus Pain, No Hoarseness, No sore throat, No Rhinorrhea, No Swallowing Difficulty Eyes: No Eye Pain, No Swelling, No Redness, No Foreign Body, No Discharge, No Vision Changes Cardiovascular : No Chest Pain, No SOB, No Dyspnea on Exertion, No Orthopnea, No Edema, No Palpitations Respiratory : No Cough, No Sputum, No Wheezing, No Smoke Exposure, No Dyspnea Gastrointestinal : No Nausea, No Vomiting, No Diarrhea, No Constipation, complaining of abdominal distention, diffuse abdominal pain but much worse in the right upper quadrant Genitourinary : Complaining of dysuria only in the mornings, No Urinary Frequency, No Hematuria, No Urinary Incontinence, No Urgency, No Flank Pain, No Urinary Flow Changes, No Hesitancy Musculoskeletal : No joint pain, No Myalgias, No Joint Swelling Skin : No Skin Lesions, No rash Neuro : No Weakness, No Numbness, No Paresthesias, No Loss of Consciousness, No Dizziness, No Headache Psych : No Anxiety/Panic, No Depression, No SI/HI/AH/VH, No Social Issues, Heme/Lymph: No Bruising, No Bleeding,No Lymphadenopathy Endocrine : No Polyuria, No Polydipsia, No Temperature Intolerance PMFSH Past Medical History Medical History Postprandial abdominal pain in right upper quadrant COVID Cirrhosis Neuropathy Sensory ataxia Clavicle fracture Alcohol abuse Foot pain, bilateral Abnormal complete blood count Abnormal liver enzymes No known health problems Surgical History Hx of skin graft Family History Family History Paternal Grandfather Cancer Paternal Grandmother Cancer Social History Social History Household Members: Spouse Housing: Condominium Do you presently have visiting nurse or other home services: No Alcohol intake: former Comment: patient refusing bed alarm, steady on feet, high fall risk [facility] [place] [facility] Patient Tobacco Use Status: Former Tobacco user Years Smoked: 10 e-Cigarette/Vaping Use: Currently Using Substance Use Type: Marijuana Advance Directives: No Advance Directives Information Provided: Yes Do you have a plan to hurt others: No Plan service: No 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 status: 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 Physical Exam ED Vital Signs: Vital Signs - 24 hr 03/31/24 17:21 03/31/24 19:17 03/31/24 23:19 Temperature 98.3 F 98.1 F Pulse Rate 134 H 119 H 88 Respiratory Rate 16 17 17 Blood Pressure 146/97 H 147/93 H 130/97 H Pulse Oximetry 95 95 97 Oxygen Delivery Method Room Air Room Air 04/01/24 00:00 04/01/24 01:20 04/01/24 02:40 Temperature 98.5 F 98.2 F 98.0 F Pulse Rate 90 89 96 Respiratory Rate 16 16 18 Blood Pressure 123/83 122/87 124/89 Pulse Oximetry 98 96 96 Oxygen Delivery Method Room Air Room Air Room Air 04/01/24 02:41 Temperature 98.0 F Pulse Rate 96 Respiratory Rate 18 Blood Pressure 124/89 Pulse Oximetry 96 Oxygen Delivery Method Room Air BMI result Body Mass Index 26.3 Const Other: Appearance: Alert. Oriented X3. No acute distress. Eyes: Pupils equal, round and reactive to light. Anicteric sclerae ENT: Pharynx normal. Neck: Normal inspection. Neck supple. No lymph nodes noted. No crepitus CVS: Normal heart rate and rhythm. Pulses normal. Normal S1 and S2 Respiratory: No respiratory distress. Breath sounds normal. No Wheezing. No rales Abdomen: Soft distended, tender to palpation in the epigastric area and right upper quadrant, also moderate pain to palpation in bilateral lower quadrants and left upper quadrant. Bedside ultrasound shows a small to moderate amount of ascitis Skin: Skin warm and dry. Moderately jaundiced skin color. Normal skin turgor. Extremities: No lower extremity edema. No Lacerations. No Rash Neuro: Oriented X 3. No motor deficit. No sensory deficit. Moving all extremities. No slurred speech. CN 2 through 12 grossly intact Psych: calm, cooperative, normal affect Procedures Paracentesis Time Out Performed: Yes Indication: possible spontaneous bacterial peritonitis Procedure: diagnostic paracentesis Location: LLQ Local Anesthetic: lidocaine 1% Amount of anesthesia used (mL): 10 Bedside Ultrasound Used: yes, real-time guidance Preparation: 11 blade used to make cesar in skin Amount of fluid obtained (mL): 3,800 Fluid: clear Post Procedure Exam: awake, alert, normal BP, normal HR and normal SpO2 Patient Tolerated Procedure: well and no complications Complications: none Course Course Course Narrative: This is a Rapid Medical Exam performed in triage by Marylu Keenan PA-C. Full HPI, ROS and PE to be performed by primary ED provider. 34-year-old male with a past medical history of alcoholic liver disease, cirrhosis, alcoholic hepatitis, encephalopathy, presenting to the ED c/o diffuse abdominal pain w/assoc N/V/D x months. State he has not consumed alcohol since October. Admits abdomen is distended. denies fever PE: +jaundice, +distended abdomen, diffusely ttp Plan: Labs, UA Medical Decision Making Medical Decision Making MDM Narrative: My interpretation of labs: Patient's white blood cell count slightly elevated 11.3, no significant abnormality in patient's electrolytes, INR 2.0, LFTs chronically elevated. Patient does not have any fever, however patient is tachycardic, blood pressure in the mid 140s systolic, with no episodes of hypotension. Sepsis is not suspected. On physical exam, patient had tenderness in epigastric area and right upper quadrant as expected, due to known cholelithiasis, and pain is known to be chornic. Patient has new abdominal pain in the LUQ and LLQ. I discussed with the patient that it is possible that he may have acute cholecystitis versus SBP. Patient consents to get a paracentesis to send the fluid to the lab and get it analyzed for SBP. A paracentesis was performed, 3800 mL of clear yellow fluid were obtained, patient tolerated well the procedure. Patient's ammonia level is minimally elevated at 67. Patient is completely alert and oriented x3, coherent After the paracentesis, blood pressure stable in the 120s, patient has not had any fever at all during his ED stay. Patient states that his abdomen feels much better. Patient is still having mild epigastric/right upper quadrant pain which patient states that is his usual baseline. Overall patient feeling much better after fluid was removed with the paracentesis. Paracentesis labs negative for SBP Since patient has been having ongoing abdominal pain and has already been seen by surgery in the outpatient setting, I discussed with the patient that I recommend to admit him and have surgery consult tomorrow with Dr. Batres. Patient declined admission, he states that he prefers to get pain medication for home and be discharged. Patient instructed to have close follow-up with Dr. Batres and his PCP, as patient may need a cholecystectomy. At this time, there is no indication for emergent surgery Patient agrees with plan and is requesting to be discharged Differential Diagnosis Differential Diagnoses: The differential diagnosis associated with the presentation includes (As above) Admission/Observation Consideration of admission/observation: Escalation of care including admission/observation considered (Admission was offered but patient declined) Lab Data MDM Lab Attestation statement: I reviewed the patient's lab results. 03/31/24 18:26 03/31/24 18:26 Labs: Lab Results 03/31/24 03/31/24 03/31/24 Range/Units 18:25 18:26 23:24 WBC 11.3 H (4.8-10.8) X10*3/uL RBC 4.80 (4.60-5.80) X10*6/uL Hgb 16.0 (14.0-18.0) g/dl Hct 45.0 (42.0-52.0) % MCV 93.8 (80.0-98.0) fL MCH 33.3 H (27.0-33.0) pg MCHC 35.6 (31.0-36.0) g/dl RDW 13.4 (11.0-16.0) % Plt Count 272 D (160-400) X10*3/uL MPV 9.7 (9.4-12.4) fL Immature Gran % (Auto) 0.4 (0.0-0.4) % Neut % (Auto) 76.9 H (45-73) % Lymph % (Auto) 9.2 L (20-40) % [place] % (Auto) 8.7 (2-11) % Eos % (Auto) 4.4 H (0-4) % Baso % (Auto) 0.4 (0-2) % Lymph # (Auto) 1.0 L (1.2-4.9) X10*3/uL [place] # (Auto) 1.0 (0.1-1.2) X10*3/uL Eos # (Auto) 0.5 H (0.0-0.4) X10*3/uL Baso # (Auto) 0.1 (0.0-0.2) X10*3/uL Abs Immat Gran (auto) 0.04 H (0.00-0.03) X10*3/uL Absolute Neuts (auto) 8.7 H (2.0-8.3) x10*3/uL Absolute Nucleated RBC 0.000 (0.0-0.012) X10*3/uL Nucleated RBC % (auto) 0.0 (0.0-0.2) /100WBC PT 23.7 H D (10.9-12.4) SEC INR 2.0 H (0.9-1.1) Sodium 135 (135-145) mmol/L Potassium 3.5 (3.3-5.1) mmol/L Chloride 102 (96-108) mmol/L Carbon Dioxide 22 (22-29) mmol/L Anion Gap 15 (12-20) BUN 5 L (9-16) mg/dL Creatinine 0.57 (0.5-1.4) mg/dL Estim Creat Clear Calc 212.3 Estimated GFR > 60 Random Glucose 242 H (60-115) mg/dL Calcium 8.3 L D (8.4-10.2) mg/dL Magnesium 1.8 (1.6-2.6) mg/dL Total Bilirubin 4.3 H (0.0-1.0) mg/dL Direct Bilirubin 3.0 H (0.0-0.5) mg/dL AST 94 H (5-37) U/L ALT 48 H (0-40) U/L Alkaline Phosphatase 185 H (39-117) U/L Ammonia (13-55) umol/L C-Reactive Protein 4.16 H (< or = 0.50) mg/dL Total Protein 6.0 L (6.5-8.0) g/dL Albumin 3.0 L (3.5-5.0) g/dL Lipase 66 (8-78) U/L Urine Color [place] Urine Appearance Clear Urine pH 6.5 (5.0-9.0) Ur Specific [place] 1.015 (1.005-1.025) Urine Protein 30 (1+) H (Neg-Trace) mg/dL Urine Glucose (UA) 100 H (Negative) mg/dL Urine Ketones Negative (Negative) mg/dL Urine Blood Negative (Negative) Urine Nitrite Positive H (Negative) Ur Leukocyte Esterase Negative (Negative) Urine RBC 0-2 (0-2) /HPF Urine WBC 0-5 (0-5) /HPF Ur Squamous Epith Cells 3-5 (0-2) /HPF Urine Bacteria None Seen (None Seen) Hyaline Casts 11-20 (0-2) /LPF Granular Casts None seen Peritoneal WBC 0.149 X10*3/uL Peritoneal RBC < 0.002 X10*6/uL Peritoneal Other Cells 100 % Urine Opiates Screen Not Detected (Not Detect) Ur Buprenorphine Scrn Positive H (Not Detect) ng/mL Ur Oxycodone Screen Not Detected (Not Detect) ng/mL Urine Methadone Screen Not Detected (Not Detect) ng/mL Urine Fentanyl Screen Not Detected (Not Detect) Ur Barbiturates Screen Not Detected (Not Detect) Ur Phencyclidine Scrn Not Detected (Not Detect) Ur Amphetamines Screen Not Detected (Not Detect) U Benzodiazepines Scrn Not Detected (Not Detect) Urine Cocaine Screen Not Detected (Not Detect) U Marijuana (THC) Screen POSITIVE H (Not Detect) Ethyl Alcohol < 10 mg/dL 04/01/24 Range/Units 00:08 WBC (4.8-10.8) X10*3/uL RBC (4.60-5.80) X10*6/uL Hgb (14.0-18.0) g/dl Hct (42.0-52.0) % MCV (80.0-98.0) fL MCH (27.0-33.0) pg MCHC (31.0-36.0) g/dl RDW (11.0-16.0) % Plt Count (160-400) X10*3/uL MPV (9.4-12.4) fL Immature Gran % (Auto) (0.0-0.4) % Neut % (Auto) (45-73) % Lymph % (Auto) (20-40) % [place] % (Auto) (2-11) % Eos % (Auto) (0-4) % Baso % (Auto) (0-2) % Lymph # (Auto) (1.2-4.9) X10*3/uL [place] # (Auto) (0.1-1.2) X10*3/uL Eos # (Auto) (0.0-0.4) X10*3/uL Baso # (Auto) (0.0-0.2) X10*3/uL Abs Immat Gran (auto) (0.00-0.03) X10*3/uL Absolute Neuts (auto) (2.0-8.3) x10*3/uL Absolute Nucleated RBC (0.0-0.012) X10*3/uL Nucleated RBC % (auto) (0.0-0.2) /100WBC PT (10.9-12.4) SEC INR (0.9-1.1) Sodium (135-145) mmol/L Potassium (3.3-5.1) mmol/L Chloride (96-108) mmol/L Carbon Dioxide (22-29) mmol/L Anion Gap (12-20) BUN (9-16) mg/dL Creatinine (0.5-1.4) mg/dL Estim Creat Clear Calc Estimated GFR Random Glucose (60-115) mg/dL Calcium (8.4-10.2) mg/dL Magnesium (1.6-2.6) mg/dL Total Bilirubin (0.0-1.0) mg/dL Direct Bilirubin (0.0-0.5) mg/dL AST (5-37) U/L ALT (0-40) U/L Alkaline Phosphatase (39-117) U/L Ammonia 67 H (13-55) umol/L C-Reactive Protein (< or = 0.50) mg/dL Total Protein (6.5-8.0) g/dL Albumin (3.5-5.0) g/dL Lipase (8-78) U/L Urine Color Urine Appearance Urine pH (5.0-9.0) Ur Specific [place] (1.005-1.025) Urine Protein (Neg-Trace) mg/dL Urine Glucose (UA) (Negative) mg/dL Urine Ketones (Negative) mg/dL Urine Blood (Negative) Urine Nitrite (Negative) Ur Leukocyte Esterase (Negative) Urine RBC (0-2) /HPF Urine WBC (0-5) /HPF Ur Squamous Epith Cells (0-2) /HPF Urine Bacteria (None Seen) Hyaline Casts (0-2) /LPF Granular Casts Peritoneal WBC X10*3/uL Peritoneal RBC X10*6/uL Peritoneal Other Cells % Urine Opiates Screen (Not Detect) Ur Buprenorphine Scrn (Not Detect) ng/mL Ur Oxycodone Screen (Not Detect) ng/mL Urine Methadone Screen (Not Detect) ng/mL Urine Fentanyl Screen (Not Detect) Ur Barbiturates Screen (Not Detect) Ur Phencyclidine Scrn (Not Detect) Ur Amphetamines Screen (Not Detect) U Benzodiazepines Scrn (Not Detect) Urine Cocaine Screen (Not Detect) U Marijuana (THC) Screen (Not Detect) Ethyl Alcohol mg/dL Independent Interpretation I performed an independent interpretation of an: Ultrasound Radiology Impression Discussion of test interpretation with radiology: I have reviewed the radiologist's reading. Radiologist Impression: The visualized pancreas is normal. The aorta and inferior vena cava are normal caliber. The liver is normal in size and echotexture. There is no intrahepatic bile duct dilatation. The common duct is 6 mm in diameter. The gallbladder is normal. There is no sonographic Duran sign. The main portal vein is antegrade. Perihepatic ascites. IMPRESSION: Perihepatic ascites. No signs of acute cholecystitis. Medications Administered Discontinued Medications Generic Name Dose Route Start Last Admin Trade Name Freq PRN Reason Stop Dose Admin Lidocaine HCl 10 ml 03/31/24 22:15 03/31/24 23:19 Lidocaine Hcl 1 % 10 Ml Vial INFILTRATI 03/31/24 22:16 10 ml ONCE ONE Administration Lorazepam 1 mg 04/01/24 00:47 04/01/24 00:52 Lorazepam 1 Mg Tablet PO 04/01/24 00:48 1 mg ONCE ONE Administration Nicotine 21 mg 04/01/24 00:47 04/01/24 00:52 Nicotine 21 Mg Patch.Td24 TRANSDERMA 04/01/24 00:48 21 mg ONCE ONE Administration Critical Care Time Critical Care Time Critical Care Time: Yes Total Critical Care Time: 60 Attestation: I have personally provided critical care time. Time includes review of lab data, radiology results, discussion with consultants, and monitoring for potential decompensation. Intervention performed as documented. Discharge Plan Discharge Clinical Impression: Abdominal ascites, Cholelithiasis Patient Disposition: Home, Self-Care Instructions: Gallstones (ED), Ascites (ED), Paracentesis (DC) Additional Instructions: Please follow-up with your primary care physician tomorrow. If you have any worsening or new symptoms, please return to the emergency room or call 911 Prescriptions: New tramadol 50 mg tablet 50 mg PO BID PRN (Reason: pain) Qty: 8 0RF No Action atenolol 25 mg tablet 25 mg PO DAILY Qty: 90 0RF lorazepam 1 mg tablet 1 mg PO TID PRN (Reason: anxiety) 30 Days Qty: 90 0RF potassium chloride 20 mEq Tablet Extended Release 20 meq PO DAILY Qty: 30 1RF lactulose 20 gram/30 mL Solution 20 g PO BIDWM Qty: 1800 0RF buprenorphine-naloxone 2-0.5 mg film 1 film sublingual DAILY gabapentin 100 mg capsule 100 mg PO TID 30 Days Qty: 90 4RF omeprazole 20 mg capsule,delayed release(DR/EC) 20 mg PO DAILY Qty: 90 3RF bisacodyl [Dulcolax (bisacodyl)] 5 mg tablet,delayed release (DR/EC) 10 mg PO BEDTIME Qty: 180 4RF ondansetron 4 mg tablet,disintegrating 4 mg PO Q8H PRN (Reason: nausea and vomiting) Qty: 20 0RF Interventions: ED Discharge Assessment Last Done: 04/01/24 02:41 Discharge Date/Time: 04/01/24 02:41 Print Language: [place]
[2024-03-31 18:30] LABS: MANUAL DIFF FLAG NO
[2024-03-31 18:34] LABS: Basophils Absolute Auto 0.1 X10*3/uL (0.0-0.2); Basophils Percent Auto 0.4 % (0-2); Eosinophils Absolute Auto 0.5 X10*3/uL (0.0-0.4); Eosinophils Percent Auto 4.4 % (0-4); Imm Gran Abs Auto 0.04 X10*3/uL (0.00-0.03); Imm Gran Pct Auto 0.4 % (0.0-0.4); Lymphocytes Percent Auto 9.2 % (20-40); Mean Corpuscular HGB Conc 35.6 g/dl (31.0-36.0); Mean Corpuscular Hemoglobin 33.3 pg (27.0-33.0); Mean Corpuscular Volume 93.8 fL (80.0-98.0); Mean Platelet Volume 9.7 fL (9.4-12.4); Monocytes Percent Auto 8.7 % (2-11); Neutrophils Absolute Auto 8.7 x10*3/uL (2.0-8.3); Neutrophils Percent Auto 76.9 % (45-73); Platelet Count 272 X10*3/uL (160-400); Red Cell Distribution Width 13.4 % (11.0-16.0); White Blood Count 11.3 X10*3/uL (4.8-10.8)
[2024-03-31 18:36] LABS: Appearance Urine Clear; Color Urine Orange; Glucose Urine UA 100 mg/dL (Negative); Leukocyte Esterase Urine Negative (Negative); Nitrite Urine Positive (Negative); PH 6.5 (5.0-9.0); Specific Gravity - Urine 1.015 (1.005-1.025); UMIC TRIGGER UACC YES; Urine Blood Negative (Negative); Urine Ketones Negative (Negative); Urine Protein 30 (1+) mg/dL (Neg-Trace)
[2024-03-31 18:39] LABS: Prothrombin Time 23.7 SEC (10.9-12.4)
[2024-03-31 18:51] LABS: Bacteria Urine None Seen (None Seen); Granular Casts Urine None seen; RBC Urine 0-2 /HPF (0-2); UACC Culture Trigger YES; WBC Urine 0-5 /HPF (0-5)
[2024-03-31 18:55] LABS: Alanine Aminotransferase 48 U/L (0-40); Alkaline Phosphatase 185 U/L (39-117); Anion Gap 15 (12-20); Aspartate Amino Transferase 94 U/L (5-37); Bilirubin Total 4.3 mg/dL (0.0-1.0); Blood Urea Nitrogen 5 mg/dL (9-16); C Reactive Protein 4.16 mg/dL (< or = 0.50); Calcium 8.3 mg/dL (8.4-10.2); Carbon Dioxide 22 mmol/L (22-29); Chloride 102 mmol/L (96-108); Creatinine Clr Calc Pharmacy 212.3; Estimated Glomerular Filt Rate > 60; Ethanol < 10 mg/dL; Glucose Random 242 mg/dL (60-115); Lipase 66 U/L (8-78); Magnesium 1.8 mg/dL (1.6-2.6); Potassium 3.5 mmol/L (3.3-5.1); Sodium 135 mmol/L (135-145)
--- NOTE | 2024-03-31 19:02 | PC.NURSE ---
Family member approached this RN in triage requesting re-evaluation by provider. Family member stated that I think he's hallucinating, and his eyes are shaking back and forth and going side to side . commercial litigation associate notified by SHANTAL Keenan and brought into ED bed for evaluation.
[2024-03-31 19:17] VITALS: BP 147/93; PULSE 119; RESP 17; O2SAT 95
--- NOTE | 2024-03-31 19:45 | MHC.EDTECH ---
late entry: this tech changed over pt, placed him on the monitor worker and obtained VS, BP was high and pt stated that he takes medication for high BP and forgot to take his daily dose today. Visitor also stated that his eyes Are shaky not like normal . RN made aware.
[2024-03-31 20:02] LABS: Amphetamine Screen Urine Not Detected (Not Detect); Barbiturates, Urine Not Detected (Not Detect); Benzodiazepines Screen Urine Not Detected (Not Detect); Buprenorphine Scr Positive (Not Detect); Cannabinoid Screen Urine POSITIVE (Not Detect); Cocaine Screen Urine Not Detected (Not Detect); Fentanyl, urine Not Detected (Not Detect); Methadone Screen, Urine Not Detected (Not Detect); Opiate Screen Urine Not Detected (Not Detect); Oxycodone Screen Urine Not Detected (Not Detect); Phencyclidine Screen Urine Not Detected (Not Detect)
[2024-03-31 23:19] VITALS: BP 130/97; PULSE 88; RESP 17; TEMP 36.7; O2SAT 97
[2024-03-31] MEDS: Lidocaine HCl 1 % 10 ML VIAL INFILTRATI (23:19)
--- NOTE | 2024-03-31 23:22 | PC.NURSE ---
pt tolerated paracentesis well. 3800ml removed by provider
--- NOTE | 2024-03-31 23:35 | PC.NURSE ---
pt off unit to U/S
[2024-03-31 23:55] LABS: MN% 92.8 %; PMN% 7.2 %; WBC Peritoneal Fluid 0.149 X10*3/uL
[2024-03-31 23:56] LABS: BF Shift QC OK YES; RBC Peritoneal Fluid < 0.002 X10*6/uL
[2024-04-01] VITALS: BP 123/83; PULSE 90; RESP 16; TEMP 36.9; O2SAT 98
--- NOTE | 2024-04-01 00:12 | MHC.EDTECH ---
This pct just assumed care of Patient at 2300 ,vitals taken and ammonia drawn and sent to lab .
[2024-04-01 00:18] LABS: Ammonia 67 umol/L (13-55)
[2024-04-01 00:23] LABS: Other Peritioneal Fl 100 %
--- NOTE | 2024-04-01 00:24 | PC.NURSE ---
pt had a bag of meds at bedside, med rec completed from RX bottles in bag.
--- NOTE | 2024-04-01 00:36 | PC.NURSE ---
pt requesting food, told pt multiple times he has to wait for test results first. pt asks again a few minutes later. very repetitive and forgetful
[2024-04-01] MEDS: LORazepam 1 MG TABLET PO (00:52)
[2024-04-01] MEDS: Nicotine 21 MG PATCH.TD24 TRANSDERMA (00:52)
[2024-04-01 01:20] VITALS: BP 122/87; PULSE 89; RESP 16; TEMP 36.8; O2SAT 96
[2024-04-01 02:40] VITALS: BP 124/89; PULSE 96; RESP 18; TEMP 36.7; O2SAT 96
[2024-04-01 02:41] VITALS: BP 124/89; PULSE 96; RESP 18; TEMP 36.7; O2SAT 96
[2024-04-05 10:44] LABS: Glucose Peritoneal Fluid 176; LDH Peritoneal Fluid 33; Total Protein Peritoneal Fluid 0.7
[2024-04-05 10:46] LABS: Albumin Peritoneal Fluid 0.5
== END 2024-04-01 02:41 | disposition home or self-care (01) ==
PROVIDERS: Physician Assistant; Emergency Provider Emergency Medicine; PCP Internal Medicine
DX: R18.8 Other ascites (principal); K80.20 Calculus of gallbladder without cholecystitis without obstruction; R10.11 Right upper quadrant pain; R00.0 Tachycardia, unspecified; F12.90 Cannabis use, unspecified, uncomplicated; F10.20 Alcohol dependence, uncomplicated; Z87.891 Personal history of nicotine dependence; Z79.899 Other long term (current) drug therapy
CPT/HCPCS: 36415; 49083; 76705; 80048; 80076; 80307; 81001; 82042; 82140; 82945; 83615; 83690; 83735; 84157; 85025; 85610; 86140; 87070; 87073; 87086; 87205; 89051; 99284; 99285; J2003

== ENCOUNTER → 2024-03-31 21:58 | Outpatient (BNV) | payer OTHER, SELFPAY | PROVIDERS: Emergency Provider Emergency Medicine; PCP Internal Medicine; Visit Provider Student in an Organized Health Care Education/Training Program | DX: R10.9 Unspecified abdominal pain (principal) | CPT/HCPCS: 76705 ==

== ENCOUNTER 2024-04-01 04:11 | Inpatient (IN) | payer OTHER, SELFPAY ==
--- NOTE | ~2024-04-01 | XR_ITS ---
CLINICAL HISTORY: F U Ileus 1 view abdomen Comparison: CR/SR - XR KUB - 04/05/24 16:00 EST Findings: No pneumoperitoneum or pneumatosis. Severe gaseous distention of bowel with mild dilatation of both large and small bowel, similar to the prior study. Relative paucity of gas within the distal colon. No abnormal calcifications. No acute fractures. IMPRESSION: Findings are most likely secondary to persistent ileus although a partial degree of distal colonic obstruction is not excluded. This document has been electronically signed by: Rosina Sneed MD on 04/06/2024 16:49:19
--- NOTE | ~2024-04-01 | US_ITS ---
EXAMINATION: US ABDOMEN LIMITED CLINICAL INFORMATION: Symptomatic ascites. COMPARISON: None available. TECHNIQUE: Real-time imaging of the right upper quadrant abdominal viscera. FINDINGS: 4 quadrant imaging of the abdomen reveals minimal ascites. Hence ultrasound guided paracentesis was not performed. US/US abdomen limited IMPRESSION: No significant ascites for ultrasound-guided paracentesis. Electronically signed by: Corey Herring MD 04/02/2024 03:25 PM EST
--- NOTE | ~2024-04-01 | XR_ITS ---
CLINICAL HISTORY: F U SBO 1 view abdomen Comparison: CR - XR KUB - 04/06/24 16:07 EST Findings: There are dilated loops of small and large bowel, similar to prior exam. Air is seen within the rectum. Several pelvic calcifications are seen, likely representing phleboliths. No acute fractures. IMPRESSION: Dilated loops of small and large bowel, similar to prior exam. Findings likely represent an ileus. Recommend continued follow-up. This document has been electronically signed by: Neal Serrato on 04/07/2024 08:20:30
--- NOTE | ~2024-04-01 | CT_ITS ---
EXAMINATION: CT ABDOMEN AND PELVIS WITHOUT CONTRAST CLINICAL INFORMATION: Cirrhosis. Abdominal distention. Abdominal pain. COMPARISON: CT abdomen dated November 27, 2023. TECHNIQUE: Multidetector volumetric imaging was performed from the superior aspect of the liver through the pubic symphysis. Sagittal and coronal reformatted images were obtained on the technologist's workstation. This CT examination was performed using dose optimization techniques as appropriate, variously including the following: *Automated exposure control *Adjustment of mA and/or kV according to patient size (this includes techniques or standardized protocols for targeted exams where dose is matched to indication/reason for exam; i.e. extremities or head) *Use of iterative reconstruction technique. Total dose: 744 mGy centimeter FINDINGS: Limited evaluation of the intra-abdominal organs and vascular structures due to lack of IV contrast. LUNG BASES: Patchy and confluent attenuation in the lower lung lobes. Bilateral pleural effusions, small volume. LIVER, GALLBLADDER, AND BILIARY TREE: Liver measures 19 cm. Nodular surface. Fluid-filled gallbladder with the layering hyperdensity in the gallbladder neck region. No pericholecystic fluid collection or gallbladder wall thickening. No intrahepatic or extrahepatic biliary ductal dilatation. PANCREAS: No main pancreatic ductal dilatation. No peripancreatic fluid collection. SPLEEN: 15 cm. ADRENAL GLANDS: No nodular lesion. KIDNEYS AND URETERS: No hydronephrosis. No nephrolithiasis. BLADDER: Fluid-filled. GASTROINTESTINAL TRACT: Gas and fluid-filled distended small bowel loops with the aid comparison and transition decreased caliber/diameter at the distal ileal loops in the right lower peritoneal cavity. There is swirling of the mesenteric vessels. Abundant stool within the large intestine. No pneumoperitoneum. Ascites, moderate volume. No fluid collections, peritoneal cavity or retroperitoneum. Appendix is normal. No pneumatosis intestinalis. ABDOMINAL WALL: No gross hernia. LYMPH NODES: Numerous prominent less than 2 cm lymph nodes, mesenteric and retroperitoneum. VASCULAR: No aneurysm, abdominal aorta. PELVIC VISCERA: Atrophic versus absent prostate gland. OSSEOUS STRUCTURES: Spondylosis, L4-5 and L5-S1. Grade 1 retrolisthesis L4-5. No acute fracture. No lytic or blastic lesions. CT/CT abdomen pelvis wo IV con IMPRESSION: Partial/intermittent distal small bowel obstruction. Internal hernia cannot be excluded. Hepatosplenomegaly and lymphadenopathy. Ascites, moderate volume. Multifocal pneumonia, right lower lung lobes. Probable cholelithiasis. Discussed with the requesting physician Dr. Chintan Tanner at 11:55 AM. Fleischner guidelines were followed. Electronically signed by: Natalio Garcia MD 04/03/2024 12:06 PM [facility]
--- NOTE | ~2024-04-01 | XR_ITS ---
EXAMINATION: XR ABDOMEN KUB CLINICAL INDICATION: FU of colon distension COMPARISON: None available. TECHNIQUE: AP view of the abdomen. FINDINGS: Diffuse distended transverse, ascending colon and small bowel loops is visualized suggestive of diffuse ileus. There is no suspicion for free air or pneumatosis. No organomegaly. On preceding CT patient has cirrhosis, ascites and distended small bowel loops and colon similar to the KUB from today. No organomegaly seen. XR/XR KUB IMPRESSION: Findings strongly suggestive for diffuse ileus likely secondary to cirrhosis and ascites as visualized on the previous CT abdomen exam on 10/14/2024. There is no suggestion of pneumatosis or free air. Electronically signed by: Corey Herring MD 04/05/2024 04:22 PM EST
--- NOTE | ~2024-04-01 | XR_ITS ---
EXAMINATION: XR CHEST CLINICAL INFORMATION: hypoxia COMPARISON: Right RIBS with chest x-ray. 3. 14/10/2022 TECHNIQUE: Frontal view of the chest was obtained. FINDINGS: The lungs are hypoexpanded with bibasilar and midlung atelectasis. Heart size and pulmonary vascularity is normal. No gross bony abnormality seen. XR/XR chest 1V IMPRESSION: Hypoexpanded lungs with bibasilar atelectasis. There is midlung atelectasis as well. No gross bony abnormality seen. Electronically signed by: Corey Herring MD 04/03/2024 09:34 AM [facility] [place]
[2024-04-01 04:17] VITALS: BP 133/92; PULSE 96; RESP 18; TEMP 36.6; O2SAT 95; BMI 26.3
[2024-04-01 06:57] VITALS: BP 137/87; PULSE 95; RESP 16; TEMP 36.9; O2SAT 96
--- NOTE | 2024-04-01 07:10 | PC.NURSE ---
pt alert and oriented but seemingly confused/forgetful at times. although pt seems to be asking repetitive questions while already being told the answer, pt able to follow commands/answer questions appropriately. vss and up to date aside from being sinus tachycardic on the cardiac rn. pt denies chest pain/palpitations/sob. pt reporting 6/10 generalized abd pain. denies nausea/vomiting/diarrhea/fevers/chills. abd tender w/ palpation. pt pending general surgery consult at this time. on RA w/o difficulty - no sob/wob noted. respirations even/unlabored. family bedside for support. plan of care ongoing. call mallory placed within reach.
--- NOTE | 2024-04-01 07:56 | ED.ABDPAIN ---
HPI - Abdominal Pain General Chief Complaint: Abdominal Pain Stated Complaint: gall bladder surgery? Time Seen by Provider: 04/01/24 07:42 Source: patient and family (Spouse) Mode of arrival: ambulatory Limitations: no limitations History of Present Illness ED Provider: DR. Cha HPI narrative: 34-year-old male with history of alcoholic liver cirrhosis with ascites, history of cholelithiasis follow with Dr. Batres brought in by his spouse for evaluation of confusion and hallucination ?talk to his mother who lives in [place] ?. Came in yesterday with his patient had workup in the emergency department including paracentesis workup was unremarkable and patient wanted to be discharged home. Patient was discharged home return him back to the emergency department because the concern of confusion and hallucination. Ammonia level was 67 patient will be administrated some lactulose. Related Data Home Medications ?Medication ?Instructions ?Recorded ?Confirmed buprenorphine 2 mg-naloxone 0.5 mg 1 film sublingual DAILY 12/31/21 04/01/24 sublingual film Previous Rx's ?Medication ?Instructions ?Recorded lactulose 20 gram/30 mL oral 20 g (30 mL) PO BIDWM #1,800 mL 12/07/23 solution gabapentin 100 mg capsule 100 mg PO TID 30 days #90 caps 12/13/23 atenolol 25 mg tablet 25 mg PO DAILY #90 tabs 12/22/23 potassium chloride 20 mEq 20 meq PO DAILY #30 tabs 01/20/24 tablet,extended release omeprazole 20 mg capsule,delayed 20 mg PO DAILY #90 caps 01/31/24 release bisacodyl 5 mg tablet,delayed 10 mg (2 x 5 mg) PO BEDTIME #180 03/13/24 release (Dulcolax (bisacodyl)) tabs ondansetron 4 mg disintegrating 4 mg PO Q8H PRN nausea and 03/13/24 tablet vomiting #20 tabs lorazepam 1 mg tablet 1 mg PO TID PRN anxiety 30 days 03/27/24 #90 tabs tramadol 50 mg tablet 50 mg PO BID PRN pain #8 tabs 04/01/24 Allergies Allergy/AdvReac Type Severity Reaction Status Date / Time No Known Allergies Allergy Verified 04/01/24 04:17 Review of Systems Review of Systems All other systems are reviewed and are negative Constitutional: Reports as per HPI and Reports no additional constitutional complaints Eyes: Reports as per HPI and Reports no additional eye complaints Reports system reviewed and no additional complaints, except as documented Cardiovascular: Reports as per HPI and Reports no additional cardiovascular complaints Respiratory: Reports as per HPI and Reports no additional respiratory complaints Gastrointestinal: Reports as per HPI and Reports no additional gastrointestinal complaints Genitourinary: Reports no additional female genitourinary complaints Musculoskeletal: Reports no additional musculoskeletal complaints Skin/Breast: Reports system reviewed and no additional complaints, except as docu Psychiatric: Reports no additional psychiatric complaints Endocrine: Reports no additional endocrine complaints Hematologic/Lymphatic: Reports no additional hematologic/lymphatic complaints Allergic/Immunologic: Reports no additional allergic/immunologic complaints Reports system reviewed and no additional complaints, except as documented and Reports Abnormal speech present [facility] Past Medical History Medical History Postprandial abdominal pain in right upper quadrant COVID Cirrhosis Neuropathy Sensory ataxia Clavicle fracture Alcohol abuse Foot pain, bilateral Abnormal complete blood count Abnormal liver enzymes No known health problems Surgical History Hx of skin graft Family History Family History Paternal Grandfather Cancer Paternal Grandmother Cancer Social History Social History Household Members: [facility] Do you presently have visiting nurse or other home services: No Alcohol intake: former Comment: patient refusing bed alarm, steady on feet, high fall risk per 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 Blood pressure elevated. Heart rate normal. Respiratory rate normal. Temperature normal. Oxygen saturation normal. Appearance: Alert. Oriented X3. No acute distress. Head: Normal external exam. Normocephalic. Atraumatic. No Warner signs noted. No raccoon eyes noted Eyes: PERRLA. EOMI. Conjunctiva and sclera normal. Eyelids normal. ENT: TM's Normal. Pharynx normal. Uvula midline. Moist mucous membranes. No trismus noted. No drooling noted. No muffled voice noted. Neck: Normal inspection. Neck supple. FROM. No adenopathy. Thyroid Normal. No meningeal signs. No neck mass noted. CVS: Normal heart rate and rhythm. Heart sound normal. No murmurs noted. Pulses normal throughout. Respiratory: No respiratory distress. Painless inspiration. Breath sounds normal. No wheezes/rales/rhonchi noted. Chest nontender. No accessory muscle usage noted or decreased air movement noted. Abdomen: Distended, no diffuse tenderness, no rebound tenderness, no guarding, +ascites, Bowel sounds normal in all 4 quadrants. No distention noted. No organomegaly noted. No visible injury noted. Back: No CVA tenderness. Full range of motion noted. Skin: Skin warm and dry. Normal skin color. Normal skin turgor. No rashes/lesions/lacerations noted. Extremities: No lower extremity edema. Extremities exhibit normal range of motion. Extremities nontender. Neuro: Oriented X 3. Cranial nerve exam: II-XII are grossly intact No motor deficit. No sensory deficit. Reflexes normal. Course Reevaluation(s) Reevaluation #1: Hepatic encephalopathy with hyperammonemia will administer lactulose. Will admit for hallucination and change mental status and will get inpatient surgical consultation. Time: 08:00 Medical Decision Making Differential Diagnosis Differential Diagnoses: The differential diagnosis associated with the presentation includes (Hepatic encephalopathy, hyperammonemia, cholelithiasis, SBP, electrolyte derangement, severe anemia.) Admission/Observation Consideration of admission/observation: Escalation of care including admission/observation considered Consult Healthcare Provider Management of the patient was discussed with: Hospitalist (Dr. Jacobs) and Developmental Mathematics Instructor (Dr. Batres) Lab Data MDM Lab Attestation statement: I reviewed the patient's lab results. Independent Interpretation I performed an independent interpretation of an: Ultrasound (Cholelithiasis) Radiology Impression Discussion of test interpretation with radiology: I have reviewed the radiologist's reading. Discharge Plan Discharge Clinical Impression: Acute hepatic encephalopathy, Cholelithiasis Patient Disposition: Admitted As Inpatient Prescriptions: No Action atenolol 25 mg tablet 25 mg PO DAILY Qty: 90 0RF lorazepam 1 mg tablet 1 mg PO TID PRN (Reason: anxiety) 30 Days Qty: 90 0RF potassium chloride 20 mEq Tablet Extended Release 20 meq PO DAILY Qty: 30 1RF tramadol 50 mg tablet 50 mg PO BID PRN (Reason: pain) Qty: 8 0RF lactulose 20 gram/30 mL Solution 20 g PO BIDWM Qty: 1800 0RF buprenorphine-naloxone 2-0.5 mg film 1 film sublingual DAILY gabapentin 100 mg capsule 100 mg PO TID 30 Days Qty: 90 4RF omeprazole 20 mg capsule,delayed release(DR/EC) 20 mg PO DAILY Qty: 90 3RF bisacodyl [Dulcolax (bisacodyl)] 5 mg tablet,delayed release (DR/EC) 10 mg PO BEDTIME Qty: 180 4RF ondansetron 4 mg tablet,disintegrating 4 mg PO Q8H PRN (Reason: nausea and vomiting) Qty: 20 0RF Print Language: Bangladeshi
--- NOTE | 2024-04-01 08:15 | PC.NURSE ---
pt having consult w/ dr. stanley at this time. pending admission. family bedside for support. plan of care ongoing.
[2024-04-01] MEDS: Lactulose 20 GM/30 ML SOLUTION 60 GM PO (08:29)
[2024-04-01 08:36] VITALS: BP 130/96; PULSE 101; RESP 18; TEMP 36.7; O2SAT 95
--- NOTE | 2024-04-01 08:56 | PC.NURSE ---
medication administered per provider order. pt seen by general surgery/aware of plan of care moving forward. family remains bedside for support. respirations even/unlabored. plan of care ongoing.
--- NOTE | 2024-04-01 09:28 | P.HPHOSP_ITS ---
History of Present Illness Date of Service: 04/01/24 Chief Complaint: ams 34M PMH alcohol dependence with alcoholic cirrhosis, mood disorder, cholelithiasis presented with altered mental status. Patient had been in the ED day prior to presentation for abdominal pain and distention due to symptomatic ascites. Underwent paracentesis which was negative for SBP, had relief. Went home. Then girlfriend brought patient to hospital for altered mental status, hallucination. Ammonia 67, patient reports noncompliance with lactulose. Also noted to have hyperglycemia of 242. Patient denies alcohol intake over last 3 weeks. Review of Systems Review of Systems: Yes all other systems are reviewed and are negative [facility] Medical History Postprandial abdominal pain in right upper quadrant COVID Cirrhosis Neuropathy Sensory ataxia Clavicle fracture Alcohol abuse Foot pain, bilateral Abnormal complete blood count Abnormal liver enzymes No known health problems Family History Paternal Grandfather Cancer Paternal Grandmother Cancer Surgical History Hx of skin graft Social History Household Members: Spouse Housing: Condominium Do you presently have visiting nurse or other home services: No Alcohol intake: former Comment: patient refusing bed alarm, steady on feet, high fall risk per [facility]ings Patient Tobacco Use Status: Former Tobacco user Years Smoked: 10 Smoked in Last 30 Days: No e-Cigarette/Vaping Use: Currently Using Use of substances other than those prescribed or required for medical reasons: No Substance Use Type: Marijuana Advance Directives: No Advance Directives Information Provided: Yes Do you have a plan to hurt others: No Plan service: No 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 status: 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 Meds Allergies Allergy/AdvReac Type Severity Reaction Status Date / Time No Known Allergies Allergy Verified 04/01/24 04:17 Active Medications: Current Medications Acetaminophen (Acetaminophen 325 Mg Tablet) 650 mg PO Q6H PRN PRN Reason: Pain, Mild 1-3,fever,headache Calcium Carbonate (Calcium Carbonate 750 Mg Tab.Chew) 750 mg PO Q4H PRN PRN Reason: Heartburn Lactulose (Lactulose 20 Gm/30 Ml Solution) 20 gm PO TID BERT Magnesium Hydroxide (Milk Of Magnesia 30 Ml Oral.Susp) 30 ml PO DAILY PRN PRN Reason: Constipation Melatonin (Melatonin 3 Mg Tablet) 6 mg PO BEDTIME PRN PRN Reason: Insomnia Rifaximin (Rifaximin 550 Mg Tablet) 550 mg PO BID BERT Sodium Chloride (0.9 % Sodium Chloride Flush 3 Ml Syringe) 3 ml IVFLUSH QSHIFT BERT Home Medications ?Medication ?Instructions ?Recorded ?Confirmed ?Last Taken ?Type buprenorphine 2 mg-naloxone 0.5 mg 1 film sublingual DAILY 12/31/21 04/01/24 11/27/23 History sublingual film Physical Exam Vital Signs and Narrative: Vital Signs: Last Vital Signs Temp 98.1 F 04/01/24 08:36 Pulse 101 H 04/01/24 08:36 Resp 18 04/01/24 08:36 BP 130/96 H 04/01/24 08:36 Pulse Ox 95 04/01/24 08:36 O2 Del Method Room Air 04/01/24 08:36 BMI result Body Mass Index 26.3 General: AO X 3, no acute distress, jaundiced, sluggish, mild asterixis Resp: CTA bilateral, no accessory muscles used CVS: S1,S2,RRR GI: soft, non tender, non distended Neuro: motor grossly intact, alert Psych: appropriate affect, appropriate insight Assessment and Plan (1) Alcoholism: Status: Acute Plan 34M PMH alcohol dependence with alcoholic cirrhosis, mood disorder, cholelithiasis presented with altered mental status Acute metabolic encephalopathy due to acute hepatic encephalopathy due to alcohol dependence with alcoholic cirrhosis Lactulose, rifaximin Goal 2-3 bowel movements per day Hyperglycemia Check A1c Cholelithiasis Surgery eval History of DVT Completed course of Eliquis, Eliquis discontinued Mood disorder Ativan p.r.n. DVT prophylaxis-mechanical due to elevated INR Full code Patient with hepatic encephalopathy requiring lactulose unlikely at least 2 midnights inpatient to go back to baseline Quality Stroke Does the patient have a stroke diagnosis?: No VTE Prior VTE?: Yes VTE Risk Level:: Medical - moderate - high VTE Device Contraindication: N/A - Device Ordered VTE Drug Contraindication: Treatment Not Tolerated
[2024-04-01 09:37] LABS: Estimated Average Glucose 85 mg/dL; Hemoglobin A1C 110.5594 umol/L; Hemoglobin A1c % 4.6 % (<6.0); Total Hemoglobin (HGBA1C) 4177.4186 umol/L
--- NOTE | 2024-04-01 09:56 | PC.NURSE ---
pt requesting to ambulate to the restroom to have a BM. pt unable to stand/pivot d/t increased weakness and unsteady gait. 2:1 assist to the commode. dark brown/watery BM noted in commode. linen changed. pt assisted back into bed/placed on the lead electrical controls engineer. pt provided w/ breakfast tray from the kitchen. pending bed assignment at this time. family remains bedside for support.
--- NOTE | 2024-04-01 10:07 | PM.CNGS ---
History of Present Illness Consult details Consult date: 04/01/24 Requesting physician: Chintan Tanner Narrative: 34-year-old male patient previously evaluated by me on 12/08/2023 at the request of Gastroenterology for complaints of right upper quadrant abdominal pain. The patient has a history of alcohol dependence with alcoholic cirrhosis with encephalopathy and ascites, mood disorder, and cholelithiasis. At the time of his initial visit he complained of a poor appetite due to nausea and vomiting. The seem to be worsening over the previous several months. Previous workup with ultrasound and MRI confirmed cholelithiasis but no evidence of cholecystitis with no wall thickening, pericholecystic fluid or common bile duct dilatation. Patient presents to the emergency department today with abdominal pain and distention found to have significant ascites. He underwent a paracentesis and apparently had a relief of some of his abdominal pain. He has been admitted to the hospitalist service due to his altered mental status and hallucinations. The patient denies any alcohol intake for the past 3 weeks. The patient's father who was present in the emergency department confirms the patient has continued hallucinations, including reporting that he ate a steak today and saw his grandmother recently would actually many years ago. Review of Systems Review of Systems: Yes Unobtainable due to mental status PMFSH Past Medical History Medical History Postprandial abdominal pain in right upper quadrant COVID Cirrhosis Neuropathy Sensory ataxia Clavicle fracture Alcohol abuse Foot pain, bilateral Abnormal complete blood count Abnormal liver enzymes No known health problems Family History Family History Paternal Grandfather Cancer Paternal Grandmother Cancer Surgical History Surgical History Hx of skin graft Social History Social History Household Members: Spouse Housing: Condominium Do you presently have visiting nurse or other home services: No Alcohol intake: former Comment: patient refusing bed alarm, steady on feet, high fall risk per [facility] Patient Tobacco Use Status: Former Tobacco user Years Smoked: 10 Smoked in Last 30 Days: No e-Cigarette/Vaping Use: Currently Using Use of substances other than those prescribed or required for medical reasons: No Substance Use Type: Marijuana Advance Directives: No Advance Directives Information Provided: Yes Do you have a plan to hurt others: No Plan Nutrition Risks: No Nutritional Risk service: No 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 status: 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 Meds Allergies Allergy/AdvReac Type Severity Reaction Status Date / Time No Known Allergies Allergy Verified 04/01/24 04:17 Active Medications: Current Medications Acetaminophen (Acetaminophen 325 Mg Tablet) 650 mg PO Q6H PRN PRN Reason: Pain, Mild 1-3,fever,headache Calcium Carbonate (Calcium Carbonate 750 Mg Tab.Chew) 750 mg PO Q4H PRN PRN Reason: Heartburn Folic Acid (Folic Acid 1 Mg Tablet) 1 mg PO DAILY [facility] Thiamine HCl 100 mg/ Sodium (Chloride) 101 mls @ 202 mls/hr IV DAILY [facility] Lactulose (Lactulose 20 Gm/30 Ml Solution) 20 gm PO TID BERT Lorazepam (Lorazepam 0.5 Mg Tablet) 0.5 mg PO Q8H PRN PRN Reason: Anxiety Magnesium Hydroxide (Milk Of Magnesia 30 Ml Oral.Susp) 30 ml PO DAILY PRN PRN Reason: Constipation Melatonin (Melatonin 3 Mg Tablet) 6 mg PO BEDTIME PRN PRN Reason: Insomnia Multivitamins/Vitamin C (Multivitamin Tablet) 1 tab PO DAILY BERT Rifaximin (Rifaximin 550 Mg Tablet) 550 mg PO BID BERT Sodium Chloride (0.9 % Sodium Chloride Flush 3 Ml Syringe) 3 ml IVFLUSH QSHIFT [facility] Home Medications ?Medication ?Instructions ?Recorded ?Confirmed ?Last Taken ?Type buprenorphine 2 mg-naloxone 0.5 mg 1 film sublingual DAILY 12/31/21 04/01/24 11/27/23 History sublingual film Physical Exam Vital Signs: Vital Signs: Last Vital Signs Temp 98.1 F 04/01/24 08:36 Pulse 101 H 04/01/24 08:36 Resp 18 04/01/24 08:36 BP 130/96 H 04/01/24 08:36 Pulse Ox 95 04/01/24 08:36 O2 Del Method Room Air 04/01/24 08:36 BMI result Body Mass Index 26.3 Const: General: cooperative and no acute distress Nutritional Appearance: well nourished Orientation/consciousness: patient oriented x3 Limitations: no limitations HEENT: Head: Yes normocephalic and Yes atraumatic Ears: hearing grossly normal bilaterally Resp: Effort & Inspection: normal respiratory effort, no audible wheezes, no cough and no respiratory distress Cardio: Jugular venous distension: no JVD GI: Inspection: Yes normal to inspection Palpation (GI): Soft to palpation, Tenderness to palpation present (GI) in the LUQ and in the RUQ; Duran's sign negative, no guarding and not rigid Skin: Other: Warm, dry, no rash Neuro: General: patient oriented x3 Extrem: General: Yes no clubbing, cyanosis or edema Results Labs Labs: All other labs normal. Assessment and Plan (1) Alcohol use disorder: Status: Acute (2) Cholelithiasis: Qualifiers: Cholelithiasis location: gallbladder Cholecystitis presence: without cholecystitis Biliary obstruction: without biliary obstruction Qualified Code(s): K80.20 - Calculus of gallbladder without cholecystitis without obstruction Status: Acute (3) Hepatic encephalopathy: Status: Acute (4) Cirrhosis: Qualifiers: Hepatic cirrhosis type: alcoholic cirrhosis Ascites presence: without ascites Qualified Code(s): K70.30 - Alcoholic cirrhosis of liver without ascites Status: Acute Plan 34-year-old male patient with known alcoholic cirrhosis, encephalopathy, ascites, chronic abdominal pain and cholelithiasis presenting with mental status changes and hallucinations. Patient found to have a large ascitic collection and underwent paracentesis today with some improvement of the abdominal pain. The patient was initially being considered for laparoscopic cholecystectomy for the abdominal pain however given the patient's current mental status changes and progressive liver disease, the risks of general anesthesia seemed to far outweigh any potential benefit of a cholecystectomy let alone the risks of bleeding during the procedure. I would recommend no surgical intervention at this time. Procedures Date of Service Date of Service: 04/01/24
--- NOTE | 2024-04-01 10:22 | PHA.MEDREC ---
Addendum entered by Sudheer Handy RPh 04/01/24 10:53: MED REC CHECKED BY [facility] Original Note: Pharmacy Consult ? Medication Reconciliation Pharmacy has completed the medication reconciliation. Patient had RX bottles with him. He reports using bisacodyl prn and gabapentin TID. Tramadol has not been picked up from the pharmacy. He did not take suboxone today. Patient has not been taking lactulose according to family at bedside but he does have bottles at home. Patient and family report he does not like that it makes him use the bathroom a lot. He last took lactulose about 2 weeks ago. Called his and she does not know how he uses it. Asked if patient is still taking potassium (no bottle for it) and no one has any information on it. leaving off of med rec.
[2024-04-01] MEDS: Folic Acid 1 MG TABLET PO (10:41)
[2024-04-01] MEDS: Multivitamin TABLET 1 TAB PO (10:41)
[2024-04-01] MEDS: Thiamine HCL 100 MG in 0.9 % Sodium Chloride 100 ML 202 MG IV (10:41)
[2024-04-01 12:30] VITALS: BP 136/95; PULSE 106; RESP 18; TEMP 37.1; O2SAT 95
[2024-04-01] MEDS: Albumin Human 25 % 100 ML IV ×2 (12:30→13:38)
[2024-04-01] MEDS: Buprenorphine/Naloxone 2/0.5mg FILM 1 FILM SUBLINGUAL (12:40)
--- NOTE | 2024-04-01 12:49 | PC.NURSE ---
pt remains tachycardic at this time but still denies any chest pain/palpitations/sob. pt seems to be increasingly disoriented at this time. pt noted to have visual hallucinations stating, it is david and i need to get the presents that are in the corner and give them to my family. pt also continuously attempting to get out of bed w/o assistance because he states that he has to have a BM even though he was just recently on the commode. pt unable to recall event in regards to already having a BM. provider notified/aware of all results. medication administered per provider order. chair alarm in place for safety precautions. respirations remain even/unlabored. plan of care ongoing. call mallory placed within reach.
[2024-04-01] MEDS: Nicotine 21 MG PATCH.TD24 TRANSDERMA (14:12)
[2024-04-01 15:04] VITALS: BP 131/90; PULSE 99; RESP 16; TEMP 36.9; O2SAT 98
[2024-04-01] MEDS: Lactulose 20 GM/30 ML SOLUTION PO ×2 (15:10→22:35)
[2024-04-01] MEDS: 0.9 % Sodium Chloride Flush 3 ML SYRINGE IVFLUSH (15:23)
[2024-04-01] MEDS: LORazepam 0.5 MG TABLET PO (15:23)
--- NOTE | 2024-04-01 19:40 | PC.NURSE ---
this rn assumed care of pt, pt resting in stretcher, no acute distress noted, vss. family at bedside.
[2024-04-01 19:56] VITALS: BP 122/79; PULSE 92; RESP 16; TEMP 36.7; O2SAT 96
--- NOTE | 2024-04-01 22:22 | PC.NURSE ---
pt medicine noted to not be in pyxis, pharmacy contacted.
[2024-04-01] MEDS: risperiDONE 0.25 MG TABLET PO (22:35)
[2024-04-01] MEDS: rifAXIMin 550 MG TABLET PO (22:35)
--- NOTE | 2024-04-01 22:37 | PC.NURSE ---
pt medicated per mar, tolerated well with water.
[2024-04-01] MEDS: Calcium Carbonate 750 MG TAB.CHEW PO (22:44)
--- NOTE | 2024-04-01 22:44 | PC.NURSE ---
pt reporting onset of acid reflux, pt requesting tums, pt medicated per mar with prn tums.
[2024-04-02 00:41] VITALS: BMI 24.7
[2024-04-02] MEDS: 0.9 % Sodium Chloride Flush 3 ML SYRINGE IVFLUSH ×2 (01:11→23:31)
[2024-04-02 02:05] VITALS: BP 139/91; PULSE 106; RESP 18; TEMP 36.4; O2SAT 92
[2024-04-02 05:21] LABS: Mean Corpuscular HGB Conc 35.9 g/dl (31.0-36.0); Mean Corpuscular Hemoglobin 33.5 pg (27.0-33.0); Mean Corpuscular Volume 93.3 fL (80.0-98.0); Mean Platelet Volume 9.3 fL (9.4-12.4); Platelet Count 154 X10*3/uL (160-400); Red Blood Count 4.18 X10*6/uL (4.60-5.80); Red Cell Distribution Width 13.2 % (11.0-16.0); White Blood Count 7.8 X10*3/uL (4.8-10.8)
[2024-04-02] MEDS: Acetaminophen 325 MG TABLET 650 MG PO ×4 (05:27→23:31)
[2024-04-02 05:28] LABS: Ammonia 49 umol/L (13-55)
[2024-04-02 05:38] LABS: Alanine Aminotransferase 47 U/L (0-40); Albumin Level 3.1 g/dL (3.5-5.0); Alkaline Phosphatase 141 U/L (39-117); Anion Gap 9 (12-20); Aspartate Amino Transferase 96 U/L (5-37); Bilirubin Direct 2.6 mg/dL (0.0-0.5); Bilirubin Total 4.3 mg/dL (0.0-1.0); Blood Urea Nitrogen 3 mg/dL (9-16); Calcium 8.5 mg/dL (8.4-10.2); Carbon Dioxide 26 mmol/L (22-29); Chloride 107 mmol/L (96-108); Creatinine Clr Calc Pharmacy 224.1; Estimated Glomerular Filt Rate > 60; Glucose Random 123 mg/dL (60-115); Magnesium 1.8 mg/dL (1.6-2.6); Potassium 3.3 mmol/L (3.3-5.1); Sodium 139 mmol/L (135-145); Total Protein 5.5 g/dL (6.5-8.0)
[2024-04-02 07:10] VITALS: BP 124/82; PULSE 117; RESP 18; TEMP 37.1; O2SAT 94
[2024-04-02] MEDS: rifAXIMin 550 MG TABLET PO ×2 (08:41→19:59)
[2024-04-02] MEDS: atenoloL 25 MG TABLET PO (08:41)
[2024-04-02] MEDS: Lactulose 20 GM/30 ML SOLUTION PO ×3 (08:41→19:59)
[2024-04-02] MEDS: Folic Acid 1 MG TABLET PO (08:41)
[2024-04-02] MEDS: Buprenorphine/Naloxone 2/0.5mg FILM 1 FILM SUBLINGUAL (08:41)
[2024-04-02] MEDS: Multivitamin TABLET 1 TAB PO (08:42)
[2024-04-02] MEDS: risperiDONE 0.25 MG TABLET PO (08:42)
[2024-04-02] MEDS: Omeprazole 20 MG CAPSULE.DR PO (08:42)
[2024-04-02] MEDS: Thiamine HCL 100 MG in 0.9 % Sodium Chloride 100 ML 202 MG IV (08:43)
[2024-04-02] MEDS: Nicotine 21 MG PATCH.TD24 TRANSDERMA (08:43)
--- NOTE | 2024-04-02 08:58 | HO.PM.IMPN ---
Subjective Subjective Date of Service: 04/02/24 Interval History: family reoprting ongonig hallucinations Physical Exam Vital Signs: Vital Signs: Last Vital Signs Temp 98.7 F 04/02/24 07:10 Pulse 117 H 04/02/24 07:10 Resp 18 04/02/24 07:10 BP 124/82 04/02/24 07:10 Pulse Ox 94 04/02/24 07:10 O2 Del Method Room Air 04/02/24 07:10 BMI result Body Mass Index 24.7 General: AO X 3, no acute distress, jaundiced, sluggish, mild asterixis Resp: CTA bilateral, no accessory muscles used CVS: S1,S2,RRR GI: soft, non tender, non distended Neuro: motor grossly intact, alert Psych: appropriate affect, appropriate insight Objective Data Active Medications Acetaminophen (Acetaminophen 325 Mg Tablet) 650 mg PO Q6H PRN PRN Reason: Pain, Mild 1-3,fever,headache Last Admin: 04/02/24 05:27 Dose: 650 mg Documented By: LASHAY Atenolol (Atenolol 25 Mg Tablet) 25 mg PO DAILY [facility]; Protocol Last Admin: 04/02/24 08:41 Dose: 25 mg Documented By: ALBINO Buprenorphine/Naloxone (Buprenorphine/Naloxone 2/0.5mg Film) 1 film SUBLINGUAL DAILY [facility] Last Admin: 04/02/24 08:41 Dose: 1 film Documented By: ALBINO Calcium Carbonate (Calcium Carbonate 750 Mg Tab.Chew) 750 mg PO Q4H PRN PRN Reason: Heartburn Last Admin: 04/01/24 22:44 Dose: 750 mg Documented By: SURENDRA Folic Acid (Folic Acid 1 Mg Tablet) 1 mg PO DAILY [facility] Last Admin: 04/02/24 08:41 Dose: 1 mg Documented By: ALBINO Thiamine HCl 100 mg/ Sodium (Chloride) 101 mls @ 202 mls/hr IV DAILY [facility] Last Admin: 04/02/24 08:43 Dose: 202 mls/hr Documented By: ALBINO Lactulose (Lactulose 20 Gm/30 Ml Solution) 20 gm PO TID [facility] Last Admin: 04/02/24 08:41 Dose: 20 gm Documented By: ALBINO Lorazepam (Lorazepam 0.5 Mg Tablet) 0.5 mg PO Q8H PRN PRN Reason: Anxiety Last Admin: 04/01/24 15:23 Dose: 0.5 mg Documented By: MOMO Magnesium Hydroxide (Milk Of Magnesia 30 Ml Oral.Susp) 30 ml PO DAILY PRN PRN Reason: Constipation Melatonin (Melatonin 3 Mg Tablet) 6 mg PO BEDTIME PRN PRN Reason: Insomnia Multivitamins/Vitamin C (Multivitamin Tablet) 1 tab PO DAILY [facility] Last Admin: 04/02/24 08:42 Dose: 1 tab Documented By: ALBINO Nicotine (Nicotine 21 Mg Patch.Td24) 21 mg TRANSDERMA DAILY [facility] Last Admin: 04/02/24 08:43 Dose: 21 mg Documented By: ALBINO Omeprazole (Omeprazole 20 Mg Capsule.Dr) 20 mg PO DAILY [facility] Last Admin: 04/02/24 08:42 Dose: 20 mg Documented By: ALBINO Rifaximin (Rifaximin 550 Mg Tablet) 550 mg PO BID [facility] Last Admin: 04/02/24 08:41 Dose: 550 mg Documented By: ALBINO Risperidone (Risperidone 0.25 Mg Tablet) 0.25 mg PO BID [facility] Last Admin: 04/02/24 08:42 Dose: 0.25 mg Documented By: ALBINO Sodium Chloride (0.9 % Sodium Chloride Flush 3 Ml Syringe) 3 ml IVFLUSH QSHIFT [facility] Last Admin: 04/02/24 01:11 Dose: 3 ml Documented By: LASHAY Labs 04/02/24 05:15 04/02/24 05:15 Labs: Laboratory Results - last 24 hr 03/31/24 04/02/24 18:26 05:15 MCV 93.3 MCH 33.5 H MCHC 35.9 RDW 13.2 Plt Count 154 L D MPV 9.3 L Absolute Nucleated RBC 0.000 Nucleated RBC % (auto) 0.0 Anion Gap 9 L Estim Creat Clear Calc 224.1 Estimated GFR > 60 Random Glucose 123 H Estimat Average Glucose 85 Hemoglobin A1c % 4.6 Calcium 8.5 Magnesium 1.8 Total Bilirubin 4.3 H Direct Bilirubin 2.6 H AST 96 H ALT 47 H Alkaline Phosphatase 141 H Ammonia 49 Total Protein 5.5 L Albumin 3.1 L Assessment and Plan (1) Hyperammonemia: Status: Acute Plan 34M PMH alcohol dependence with alcoholic cirrhosis, mood disorder, cholelithiasis presented with altered mental status Acute metabolic encephalopathy due to acute hepatic encephalopathy due to alcohol dependence with alcoholic cirrhosis Lactulose, rifaximin Goal 2-3 bowel movements per day hallucinations seems to be out of proportion to level of hepatic encephalopathy started low dose risperdal, psych eval Hyperglycemia a1c - 4.3 monitor Cholelithiasis Surgery appreciated, conservative care History of DVT Completed course of Eliquis, Eliquis discontinued Mood disorder Ativan p.r.n. DVT prophylaxis-mechanical due to elevated INR Full code reason for continued hospitalization: hallucinations Total time managing care of this patient today: 35 minutes. Quality Stroke Does the patient have a stroke diagnosis?: No VTE Prior VTE?: Yes VTE Risk Level:: Medical - moderate - high VTE Device Contraindication: N/A - Device Ordered VTE Drug Contraindication: Treatment Not Tolerated
--- NOTE | 2024-04-02 09:55 | MHC.CM.PN ---
PT LIVES WITH S/O HAS NO SERVIES HAS A RIDE HOME WHEN DCD IT IS EXPECTED THAT PT WILL BE SEEN BY [facility] TEAM PRIOR TO DC
[2024-04-02] MEDS: Spironolactone 25 MG TABLET PO (11:38)
[2024-04-02] MEDS: Calcium Carbonate 750 MG TAB.CHEW PO ×2 (13:43→20:05)
--- NOTE | 2024-04-02 14:32 | PM.PROC ---
Brief Operative Note Date of procedure: 04/02/24 Pre-op diagnosis: Ascites Post-op diagnosis: same Procedure: Limited Preprocedure US demonstrates trace perihepatic ascites. Insufficient amount of fluid is present for a paracentesis.
[2024-04-02 14:54] VITALS: BP 133/78; PULSE 119; RESP 20; TEMP 36.7; O2SAT 92
[2024-04-02] MEDS: Albumin Human 25 % 100 ML IV ×2 (15:09→15:58)
--- NOTE | 2024-04-02 15:51 | P.CNHOSGPS_ITS ---
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 The patient was severely sick and transferred to Medicine for medical treatment. He had a paracentesis today due to cirrhosis. The present consult was asked since the patient had been having psychotic symptoms in the context of acute hepatic encephalopathy and alcohol use disorder. On interview, the patient reported that he was able to hold his alcohol for 1 month he relapsed recently and while he was intoxicated he complained of auditory and visual hallucinations and disorganized thought process. During the interview the patient was able to understand that he was having delirium induced by hepatic encephalopathy and chronic alcohol abuse. He was alert awake and oriented cooperative and pleasant. Psychoeducation to his condition was provided. The case was discussed with Dr. Lopez and we decided to start a low dose of Invega instead of Risperdal since Invega is 100% metabolic through the kidneys and so far his kidney function is fair. [facility] Medical History Postprandial abdominal pain in right upper quadrant COVID Cirrhosis Neuropathy Sensory ataxia Clavicle fracture Alcohol abuse Foot pain, bilateral Abnormal complete blood count Abnormal liver enzymes No known health problems Functional capacity: independent ambulation Family History Paternal Grandfather Cancer Paternal Grandmother Cancer Surgical History Hx of skin graft Social History Household Members: Significant Other Housing: Condominium Do you presently have visiting nurse or other home services: No Alcohol intake: former Comment: patient refusing bed alarm, steady on feet, high fall risk per CIWA protoca Patient Tobacco Use Status: Former Tobacco user Years Smoked: 10 e-Cigarette/Vaping Use: Currently Using Substance Use Type: Marijuana service: No 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 status: 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 Meds Allergies Allergy/AdvReac Type Severity Reaction Status Date / Time No Known Allergies Allergy Verified 04/01/24 04:17 Active Medications: Current Medications Acetaminophen (Acetaminophen 325 Mg Tablet) 650 mg PO Q6H PRN PRN Reason: Pain, Mild 1-3,fever,headache Last Admin: 04/02/24 11:37 Dose: 650 mg Atenolol (Atenolol 25 Mg Tablet) 25 mg PO DAILY [facility]; Protocol Last Admin: 04/02/24 08:41 Dose: 25 mg Buprenorphine/Naloxone (Buprenorphine/Naloxone 2/0.5mg Film) 1 film SUBLINGUAL DAILY [facility] Last Admin: 04/02/24 08:41 Dose: 1 film Calcium Carbonate (Calcium Carbonate 750 Mg Tab.Chew) 750 mg PO Q4H PRN PRN Reason: Heartburn Last Admin: 04/02/24 13:43 Dose: 750 mg Folic Acid (Folic Acid 1 Mg Tablet) 1 mg PO DAILY [facility] Last Admin: 04/02/24 08:41 Dose: 1 mg Thiamine HCl 100 mg/ Sodium (Chloride) 101 mls @ 202 mls/hr IV DAILY [facility] Last Infusion: 04/02/24 09:14 Dose: Infused Albumin Human (Kedbumin 25 %) 100 mls @ 100 mls/hr IV Q1H [facility] Stop: 04/02/24 15:59 Last Admin: 04/02/24 15:09 Dose: 100 mls/hr Lactulose (Lactulose 20 Gm/30 Ml Solution) 20 gm PO TID [facility] Last Admin: 04/02/24 15:09 Dose: 20 gm Lorazepam (Lorazepam 0.5 Mg Tablet) 0.5 mg PO Q8H PRN PRN Reason: Anxiety Last Admin: 04/01/24 15:23 Dose: 0.5 mg Magnesium Hydroxide (Milk Of Magnesia 30 Ml Oral.Susp) 30 ml PO DAILY PRN PRN Reason: Constipation Melatonin (Melatonin 3 Mg Tablet) 6 mg PO BEDTIME PRN PRN Reason: Insomnia Multivitamins/Vitamin C (Multivitamin Tablet) 1 tab PO DAILY [facility] Last Admin: 04/02/24 08:42 Dose: 1 tab Nicotine (Nicotine 21 Mg Patch.Td24) 21 mg TRANSDERMA DAILY [facility] Last Admin: 04/02/24 08:43 Dose: 21 mg Omeprazole (Omeprazole 20 Mg Capsule.Dr) 20 mg PO DAILY [facility] Last Admin: 04/02/24 08:42 Dose: 20 mg Paliperidone (Paliperidone Er 3 Mg Tab.Er.24) 3 mg PO DAILY [facility] Rifaximin (Rifaximin 550 Mg Tablet) 550 mg PO BID [facility] Last Admin: 04/02/24 08:41 Dose: 550 mg Sodium Chloride (0.9 % Sodium Chloride Flush 3 Ml Syringe) 3 ml IVFLUSH QSHIFT [facility] Last Admin: 04/02/24 09:14 Dose: Not Given Spironolactone (Spironolactone 25 Mg Tablet) 25 mg PO DAILY [facility]; Protocol Last Admin: 04/02/24 11:38 Dose: 25 mg Home Medications ?Medication ?Instructions ?Recorded ?Confirmed ?Last Taken ?Type buprenorphine 2 mg-naloxone 0.5 mg 1 film sublingual DAILY 12/31/21 04/01/24 03/31/24 History sublingual film bisacodyl 5 mg tablet,delayed 10 mg PO BEDTIME PRN Constipation 04/01/24 04/01/24 Unknown History release (Dulcolax (bisacodyl)) Results Labs 04/02/24 05:15 04/02/24 05:15 Labs: Laboratory Results - last 24 hr 04/02/24 05:15 MCV 93.3 MCH 33.5 H MCHC 35.9 RDW 13.2 Plt Count 154 L D MPV 9.3 L Absolute Nucleated RBC 0.000 Nucleated RBC % (auto) 0.0 Anion Gap 9 L Estim Creat Clear Calc 224.1 Estimated GFR > 60 Random Glucose 123 H Calcium 8.5 Magnesium 1.8 Total Bilirubin 4.3 H Direct Bilirubin 2.6 H AST 96 H ALT 47 H Alkaline Phosphatase 141 H Ammonia 49 Total Protein 5.5 L Albumin 3.1 L Imaging Radiologist's Impressions: Impressions Abdomen Ultrasound 04/02/24 14:08 IMPRESSION: No significant ascites for ultrasound-guided paracentesis. Electronically signed by: Corey Herring MD 04/02/2024 03:25 PM [facility] Assessment and Plan (1) Acute hepatic encephalopathy: Status: Acute (2) Cirrhosis: Qualifiers: Hepatic cirrhosis type: alcoholic cirrhosis Ascites presence: without ascites Qualified Code(s): K70.30 - Alcoholic cirrhosis of liver without ascites Status: Acute (3) Alcohol use disorder: Status: Acute Plan The patient is a young male with a past history of alcohol use disorder severe with acute hepatic encephalopathy, cirrhosis and coagulopathy admitted for recent relapse of alcohol with metabolic compromise, on admission sick psychotic and disorganized very confused on delirium. At the moment of the interview the patient is much better, he is alert awake and slightly more oriented but he reported sporadic auditory hallucinations. Plan 1. Since the patient has a compromised liver function tests, the best option for antipsychotics since the use of Invega that is 100% mental verbalized through the kidneys. Start Invega 3 mg p.o. daily instead of Risperdal. 2. Keep Invega 3 mg p.o. daily for the next days until he is delirium is resolved. 3. Referral for addiction medicine. 4. Reassessment as demand. Total time managing care of this patient today: 30 minutes. Physical Exam Vital Signs: Last Vital Signs Temp 98.1 F 04/02/24 14:54 Pulse 119 H 04/02/24 14:54 Resp 20 04/02/24 14:54 BP 133/78 04/02/24 14:54 Pulse Ox 92 04/02/24 14:54 O2 Del Method Room Air 04/02/24 14:54 BMI result Body Mass Index 24.7 Neuro Cranial nerves: Yes CN's II-XII intact bilaterally Psych Appearance: grossly normal (On hospital gowns) Mental Status: mental status grossly normal Speech and movement: Normal speech and movement present Affect: normal affect Attitude: cooperative Thought process: Circumstantial thought process present and Confabulating thought process present Thought content: Hallucination(s) present and Derealization present Insight: Good insight present (Psych) Judgement: Good judgement present (Psych)
[2024-04-02 20:00] VITALS: BP 129/79; PULSE 106; RESP 17; TEMP 36.6; O2SAT 92
[2024-04-02] MEDS: LORazepam 0.5 MG TABLET PO (22:05)
[2024-04-02] MEDS: Melatonin 3 MG TABLET 6 MG PO (23:34)
--- NOTE | 2024-04-03 | ECG_ITS ---
Test Reason : tachy Blood Pressure : */* mmHG Vent. Rate : 120 BPM Atrial Rate : 120 BPM P-R Int : 176 ms QRS Dur : 80 ms QT Int : 308 ms P-R-T Axes : 35 8 129 degrees QTcB Int : [address] & T wave abnormality, consider anterolateral ischemia Abnormal ECG When compared with ECG of 27-NOV-2023 15:39, Vent. rate has increased BY 51 BPM Nonspecific T wave abnormality, worse in Inferior leads T wave inversion more evident in Anterolateral leads Referred By: Chintan Tanner Electronically Signed By: JANNETH HUFFMAN
[2024-04-03 04:00] VITALS: BP 133/83; PULSE 98; RESP 16; TEMP 36.6; O2SAT 93
[2024-04-03 05:44] LABS: Hematocrit 37.7 % (42.0-52.0); Hemoglobin 13.5 g/dl (14.0-18.0); Mean Corpuscular HGB Conc 35.8 g/dl (31.0-36.0); Mean Corpuscular Hemoglobin 33.3 pg (27.0-33.0); Mean Corpuscular Volume 93.1 fL (80.0-98.0); Mean Platelet Volume 10.2 fL (9.4-12.4); Platelet Count 135 X10*3/uL (160-400); Red Blood Count 4.05 X10*6/uL (4.60-5.80); Red Cell Distribution Width 13.2 % (11.0-16.0); White Blood Count 7.8 X10*3/uL (4.8-10.8)
[2024-04-03 05:55] LABS: Ammonia 81 umol/L (13-55)
[2024-04-03 06:01] LABS: Anion Gap 11 (12-20); Blood Urea Nitrogen 3 mg/dL (9-16); Calcium 8.8 mg/dL (8.4-10.2); Carbon Dioxide 25 mmol/L (22-29); Chloride 105 mmol/L (96-108); Creatinine Clr Calc Pharmacy 232.7; Estimated Glomerular Filt Rate > 60; Glucose Random 130 mg/dL (60-115); Sodium 138 mmol/L (135-145)
[2024-04-03 07:57] VITALS: BP 138/83; PULSE 120; RESP 18; TEMP 36; O2SAT 92
--- NOTE | 2024-04-03 08:08 | HO.PM.IMPN ---
Subjective Subjective Date of Service: 04/03/24 Interval History: feels unwell Physical Exam Vital Signs: Vital Signs: Last Vital Signs Temp 96.8 F 04/03/24 07:57 Pulse 120 H 04/03/24 07:57 Resp 18 04/03/24 07:57 BP 138/83 04/03/24 07:57 Pulse Ox 92 04/03/24 07:57 O2 Del Method Room Air 04/03/24 07:57 BMI result Body Mass Index 24.7 Lethargic, ill-appearing, oriented x3, jaundice, abdomen distended, nontender Objective Data Active Medications Acetaminophen (Acetaminophen 325 Mg Tablet) 650 mg PO Q6H PRN PRN Reason: Pain, Mild 1-3,fever,headache Last Admin: 04/02/24 23:31 Dose: 650 mg Documented By: LASHAY Atenolol (Atenolol 25 Mg Tablet) 25 mg PO DAILY [facility]; Protocol Last Admin: 04/02/24 08:41 Dose: 25 mg Documented By: ALBINO Buprenorphine/Naloxone (Buprenorphine/Naloxone 2/0.5mg Film) 1 film SUBLINGUAL DAILY [facility] Last Admin: 04/02/24 08:41 Dose: 1 film Documented By: ALBINO Calcium Carbonate (Calcium Carbonate 750 Mg Tab.Chew) 750 mg PO Q4H PRN PRN Reason: Heartburn Last Admin: 04/02/24 20:05 Dose: 750 mg Documented By: LASHAY Folic Acid (Folic Acid 1 Mg Tablet) 1 mg PO DAILY [facility] Last Admin: 04/02/24 08:41 Dose: 1 mg Documented By: ALBINO Thiamine HCl 100 mg/ Sodium (Chloride) 101 mls @ 202 mls/hr IV DAILY [facility] Last Infusion: 04/02/24 09:14 Dose: Infused Documented By: ALBINO Lactulose (Lactulose 20 Gm/30 Ml Solution) 20 gm PO TID [facility] Last Admin: 04/02/24 19:59 Dose: 20 gm Documented By: LASHAY Lorazepam (Lorazepam 0.5 Mg Tablet) 0.5 mg PO Q8H PRN PRN Reason: Anxiety Last Admin: 04/02/24 22:05 Dose: 0.5 mg Documented By: LASHAY Magnesium Hydroxide (Milk Of Magnesia 30 Ml Oral.Susp) 30 ml PO DAILY PRN PRN Reason: Constipation Melatonin (Melatonin 3 Mg Tablet) 6 mg PO BEDTIME PRN PRN Reason: Insomnia Last Admin: 04/02/24 23:34 Dose: 6 mg Documented By: LASHAY Multivitamins/Vitamin C (Multivitamin Tablet) 1 tab PO DAILY [facility] Last Admin: 04/02/24 08:42 Dose: 1 tab Documented By: ALBINO Nicotine (Nicotine 21 Mg Patch.Td24) 21 mg TRANSDERMA DAILY [facility] Last Admin: 04/02/24 08:43 Dose: 21 mg Documented By: ALBINO Omeprazole (Omeprazole 20 Mg Capsule.Dr) 20 mg PO DAILY [facility] Last Admin: 04/02/24 08:42 Dose: 20 mg Documented By: ALBINO Paliperidone (Paliperidone Er 3 Mg Tab.Er.24) 3 mg PO DAILY [facility] Rifaximin (Rifaximin 550 Mg Tablet) 550 mg PO BID [facility] Last Admin: 04/02/24 19:59 Dose: 550 mg Documented By: LASHAY Sodium Chloride (0.9 % Sodium Chloride Flush 3 Ml Syringe) 3 ml IVFLUSH QSHIFT [facility] Last Admin: 04/02/24 23:31 Dose: 3 ml Documented By: LASHAY Spironolactone (Spironolactone 25 Mg Tablet) 25 mg PO DAILY [facility]; Protocol Last Admin: 04/02/24 11:38 Dose: 25 mg Documented By: ALBINO Labs 04/03/24 05:34 04/03/24 05:34 Labs: Laboratory Results - last 24 hr 04/03/24 05:34 MCV 93.1 MCH 33.3 H MCHC 35.8 RDW 13.2 Plt Count 135 L MPV 10.2 Absolute Nucleated RBC 0.000 Nucleated RBC % (auto) 0.0 Anion Gap 11 L Estim Creat Clear Calc 232.7 Estimated GFR > 60 Random Glucose 130 H Calcium 8.8 Ammonia 81 H Assessment and Plan (1) Hyperammonemia: Status: Acute Plan 34M PMH alcohol dependence with alcoholic cirrhosis, mood disorder, cholelithiasis presented with altered mental status Acute metabolic encephalopathy due to acute hepatic encephalopathy due to alcohol dependence with alcoholic cirrhosis Lactulose, rifaximin Goal 2-3 bowel movements per day hallucinations seems to be out of proportion to level of hepatic encephalopathy Psych appreciated started Invega Hyperglycemia a1c - 4.3 Resolved Abdominal pain and distention Paracentesis attempted but minimal fluid, not consistent with SBP, will get CT abdomen Cholelithiasis Surgery appreciated, conservative care History of DVT Completed course of Eliquis, Eliquis discontinued Mood disorder Ativan p.r.n. DVT prophylaxis-mechanical due to elevated INR Full code reason for continued hospitalization: hallucinations Total time managing care of this patient today: 35 minutes. Quality Stroke Does the patient have a stroke diagnosis?: No VTE Prior VTE?: Yes VTE Risk Level:: Medical - moderate - high VTE Device Contraindication: N/A - Device Ordered VTE Drug Contraindication: Treatment Not Tolerated
[2024-04-03] MEDS: Lactulose 20 GM/30 ML SOLUTION PO ×3 (08:45→20:12)
[2024-04-03] MEDS: Nicotine 21 MG PATCH.TD24 TRANSDERMA (08:46)
[2024-04-03] MEDS: Potassium Chloride ER 20 MEQ TAB.ER.PRT 40 MEQ PO (08:47)
[2024-04-03] MEDS: atenoloL 25 MG TABLET PO (08:47)
[2024-04-03] MEDS: Spironolactone 25 MG TABLET PO (08:47)
[2024-04-03] MEDS: Omeprazole 20 MG CAPSULE.DR PO (08:47)
[2024-04-03] MEDS: Paliperidone ER 3 MG TAB.ER.24 PO (08:47)
[2024-04-03] MEDS: Multivitamin TABLET 1 TAB PO (08:47)
[2024-04-03] MEDS: Folic Acid 1 MG TABLET PO (08:48)
[2024-04-03] MEDS: Thiamine HCL 100 MG in 0.9 % Sodium Chloride 100 ML 202 MG IV (08:48)
[2024-04-03] MEDS: Furosemide 40 MG TABLET PO (08:48)
[2024-04-03] MEDS: rifAXIMin 550 MG TABLET PO ×2 (08:48→20:12)
[2024-04-03] MEDS: Buprenorphine/Naloxone 2/0.5mg FILM 1 FILM SUBLINGUAL (08:48)
[2024-04-03] MEDS: 0.9 % Sodium Chloride Flush 3 ML SYRINGE IVFLUSH (09:05)
--- NOTE | 2024-04-03 12:37 | PC.NURSE ---
Pt instructed on NPO status
[2024-04-03] MEDS: Calcium Carbonate 750 MG TAB.CHEW PO (14:12)
[2024-04-03] MEDS: Piperacillin Sodium/Tazobactam 4.5 GM in 0.9 % Sodium Chloride 100 ML IV ×2 (14:12→20:15)
[2024-04-03 14:37] LABS: Troponin-I High Sensitivity < 2.7 ng/L (<3.5-35.0)
[2024-04-03] MEDS: Acetaminophen 325 MG TABLET 650 MG PO ×2 (15:40→21:37)
[2024-04-03 19:35] VITALS: BP 124/77; PULSE 110; RESP 20; TEMP 36.6; O2SAT 92
[2024-04-03] MEDS: LORazepam 0.5 MG TABLET PO (20:13)
[2024-04-03] MEDS: Melatonin 3 MG TABLET 6 MG PO (21:38)
[2024-04-04] MEDS: 0.9 % Sodium Chloride Flush 3 ML SYRINGE IVFLUSH ×4 (00:43→20:05)
[2024-04-04] MEDS: Piperacillin Sodium/Tazobactam 4.5 GM in 0.9 % Sodium Chloride 100 ML IV ×4 (01:37→19:19)
[2024-04-04] MEDS: ondansetron HCL 4 MG/2 ML VIAL IVPUSH ×2 (02:53→08:57)
[2024-04-04 04:00] VITALS: BP 124/76; PULSE 116; RESP 18; TEMP 36.8; O2SAT 93
[2024-04-04] MEDS: Acetaminophen 325 MG TABLET 650 MG PO ×2 (06:38→20:03)
[2024-04-04 07:21] VITALS: BP 120/78; PULSE 118; RESP 16; TEMP 37.5; O2SAT 94
[2024-04-04] MEDS: Thiamine HCL 100 MG in 0.9 % Sodium Chloride 100 ML 202 MG IV (08:51)
[2024-04-04] MEDS: Nicotine 21 MG PATCH.TD24 TRANSDERMA (08:54)
[2024-04-04] MEDS: Buprenorphine/Naloxone 2/0.5mg FILM 1 FILM SUBLINGUAL (08:54)
[2024-04-04] MEDS: rifAXIMin 550 MG TABLET PO ×2 (09:21→20:01)
[2024-04-04] MEDS: Paliperidone ER 3 MG TAB.ER.24 PO (09:22)
[2024-04-04] MEDS: Multivitamin TABLET 1 TAB PO (09:22)
[2024-04-04] MEDS: Spironolactone 25 MG TABLET PO (09:22)
[2024-04-04] MEDS: atenoloL 25 MG TABLET PO (09:22)
[2024-04-04] MEDS: Furosemide 40 MG TABLET PO (09:22)
[2024-04-04] MEDS: Omeprazole 20 MG CAPSULE.DR PO (09:22)
[2024-04-04] MEDS: Folic Acid 1 MG TABLET PO (09:22)
[2024-04-04] MEDS: Lactulose 20 GM/30 ML SOLUTION PO ×2 (09:26→20:01)
--- NOTE | 2024-04-04 11:10 | P.PNIM_ITS ---
Subjective Subjective Date of Service: 04/04/24 Interval History: alert and interactive reporting abdominal discomfort and distention having diarrhea no other events Review of Systems Review of Systems: Yes all other systems are reviewed and are negative Physical Exam 2 Vital Signs: Vital Signs: Last Vital Signs Temp 99.5 F 04/04/24 07:21 Pulse 118 H 04/04/24 07:21 Resp 16 04/04/24 07:21 BP 120/78 04/04/24 07:21 Pulse Ox 94 04/04/24 07:21 O2 Del Method Room Air 04/04/24 07:21 BMI result Body Mass Index 24.7 Const: Other: Constitutional : Awake, interactive, not in distress Neck : Normal inspection, Supple Cardiovascular : RRR, no JVP, +! lower extremity edema Respiratory : good bilateral air entry, no crackles, wheezes or rhonchi Gastrointestinal: soft, lax, Normal bowel sounds, generalized mild tenderness more epigastric and RUQ, no surgical signs, distended Skin : Warm, Dry Neurological : Alert & oriented x3, No focal deficit Objective Data Active Medications Acetaminophen (Acetaminophen 325 Mg Tablet) 650 mg PO Q6H PRN PRN Reason: Pain, Mild 1-3,fever,headache Last Admin: 04/04/24 06:38 Dose: 650 mg Documented By: LASHAY Atenolol (Atenolol 25 Mg Tablet) 25 mg PO DAILY [facility]; Protocol Last Admin: 04/04/24 09:22 Dose: 25 mg Documented By: HARESH Buprenorphine/Naloxone (Buprenorphine/Naloxone 2/0.5mg Film) 1 film SUBLINGUAL DAILY [facility] Last Admin: 04/04/24 08:54 Dose: 1 film Documented By: HARESH Calcium Carbonate (Calcium Carbonate 750 Mg Tab.Chew) 750 mg PO Q4H PRN PRN Reason: Heartburn Last Admin: 04/03/24 14:12 Dose: 750 mg Documented By: ALBINO Folic Acid (Folic Acid 1 Mg Tablet) 1 mg PO DAILY [facility] Last Admin: 04/04/24 09:22 Dose: 1 mg Documented By: HARESH Furosemide (Furosemide 40 Mg Tablet) 40 mg PO DAILY [facility]; Protocol Last Admin: 04/04/24 09:22 Dose: 40 mg Documented By: HARESH Thiamine HCl 100 mg/ Sodium (Chloride) 101 mls @ 202 mls/hr IV DAILY [facility] Last Infusion: 04/04/24 09:28 Dose: Infused Documented By: HARESH Piperacillin Sod/Tazobactam (Sod 4.5 gm/ Sodium Chloride) 100 mls @ 200 mls/hr IV Q6H [facility] Last Infusion: 04/04/24 08:39 Dose: Infused Documented By: HARESH Lactulose (Lactulose 20 Gm/30 Ml Solution) 20 gm PO BID [facility] Lorazepam (Lorazepam 0.5 Mg Tablet) 0.5 mg PO Q8H PRN PRN Reason: Anxiety Last Admin: 04/03/24 20:13 Dose: 0.5 mg Documented By: ILIANA-LISA Magnesium Hydroxide (Milk Of Magnesia 30 Ml Oral.Susp) 30 ml PO DAILY PRN PRN Reason: Constipation Melatonin (Melatonin 3 Mg Tablet) 6 mg PO BEDTIME PRN PRN Reason: Insomnia Last Admin: 04/03/24 21:38 Dose: 6 mg Documented By: LASHAY Multivitamins/Vitamin C (Multivitamin Tablet) 1 tab PO DAILY [facility] Last Admin: 04/04/24 09:22 Dose: 1 tab Documented By: HARESH Nicotine (Nicotine 21 Mg Patch.Td24) 21 mg TRANSDERMA DAILY [facility] Last Admin: 04/04/24 08:54 Dose: 21 mg Documented By: HARESH Omeprazole (Omeprazole 20 Mg Capsule.Dr) 20 mg PO DAILY [facility] Last Admin: 04/04/24 09:22 Dose: 20 mg Documented By: HARESH Ondansetron HCl (Ondansetron Hcl 4 Mg/2 Ml Vial) 4 mg IVPUSH Q6H PRN PRN Reason: Nausea and Vomiting Last Admin: 04/04/24 08:57 Dose: 4 mg Documented By: HARESH Paliperidone (Paliperidone Er 3 Mg Tab.Er.24) 3 mg PO DAILY [facility] Last Admin: 04/04/24 09:22 Dose: 3 mg Documented By: HARESH Rifaximin (Rifaximin 550 Mg Tablet) 550 mg PO BID [facility] Last Admin: 04/04/24 09:21 Dose: 550 mg Documented By: HARESH Sodium Chloride (0.9 % Sodium Chloride Flush 3 Ml Syringe) 3 ml IVFLUSH QSHIFT [facility] Last Admin: 04/04/24 08:52 Dose: 3 ml Documented By: HARESH Spironolactone (Spironolactone 25 Mg Tablet) 50 mg PO DAILY [facility]; Protocol Labs 04/03/24 05:34 04/03/24 05:34 Labs: Laboratory Results - last 24 hr 04/03/24 14:05 Troponin I High Sens < 2.7 Assessment and Plan (1) Cholelithiasis: Status: Acute (2) Acute hepatic encephalopathy: Status: Acute Plan 34M PMH alcohol dependence with alcoholic cirrhosis, mood disorder, cholelithiasis presented with altered mental status Acute metabolic encephalopathy due to acute hepatic encephalopathy due to alcohol dependence with alcoholic cirrhosis decrease Lactulose, continue rifaximin Goal 2-3 bowel movements per day Abdominal pain and distention having BMs Paracentesis attempted but minimal fluid, not consistent with SBP, CT abdomen showing Partial/intermittent distal small bowel obstruction. Hepatosplenomegaly and lymphadenopathy. Ascites, moderate volume. Probable cholelithiasis. Surgery team following Pneumonia CT scan showed bilateral basal infiltrates more on Right On Zosyn hallucinations seems to be out of proportion to level of hepatic encephalopathy Psych appreciated started Invega Hyperglycemia a1c - 4.3 Resolved Cholelithiasis Surgery appreciated, conservative care History of DVT Completed course of Eliquis, Eliquis discontinued Mood disorder Ativan p.r.n. DVT prophylaxis mechanical due to elevated INR Full code reason for continued hospitalization: surgical evaluation for SBO Quality Stroke Does the patient have a stroke diagnosis?: No VTE Prior VTE?: Yes VTE Risk Level:: Medical - moderate - high VTE Device Contraindication: N/A - Device Ordered VTE Drug Contraindication: Treatment Not Tolerated
[2024-04-04] MEDS: Potassium Chloride ER 20 MEQ TAB.ER.PRT 40 MEQ PO (11:35)
[2024-04-04 15:18] VITALS: BP 118/79; PULSE 114; RESP 18; TEMP 36.6; O2SAT 93
--- NOTE | 2024-04-04 15:43 | MHC.CM.PN ---
pt declined by [facility] referrals made to [facility]
[2024-04-04] MEDS: Calcium Carbonate 750 MG TAB.CHEW PO (16:51)
[2024-04-04] MEDS: Gabapentin 100 MG CAPSULE PO ×2 (17:59→20:01)
[2024-04-04 19:45] VITALS: BP 126/72; PULSE 115; RESP 18; TEMP 36.8; O2SAT 93
[2024-04-04] MEDS: LORazepam 0.5 MG TABLET PO (20:01)
[2024-04-04] MEDS: Melatonin 3 MG TABLET 6 MG PO (20:02)
[2024-04-05] MEDS: Piperacillin Sodium/Tazobactam 4.5 GM in 0.9 % Sodium Chloride 100 ML IV ×4 (01:42→20:27)
[2024-04-05] MEDS: Zolpidem Tartrate 5 MG TABLET PO ×2 (01:52→20:27)
[2024-04-05 03:24] VITALS: BP 111/77; PULSE 105; RESP 18; TEMP 37; O2SAT 95
[2024-04-05 06:13] LABS: MANUAL DIFF FLAG NO
[2024-04-05 06:23] LABS: Basophils Percent Auto 0.4 % (0-2); Eosinophils Absolute Auto 0.3 X10*3/uL (0.0-0.4); Eosinophils Percent Auto 4.4 % (0-4); Hematocrit 37.3 % (42.0-52.0); Hemoglobin 13.4 g/dl (14.0-18.0); Imm Gran Abs Auto 0.07 X10*3/uL (0.00-0.03); Lymphocytes Absolute Auto 1.1 X10*3/uL (1.2-4.9); Lymphocytes Percent Auto 16.5 % (20-40); Mean Corpuscular HGB Conc 35.9 g/dl (31.0-36.0); Mean Corpuscular Hemoglobin 33.6 pg (27.0-33.0); Mean Corpuscular Volume 93.5 fL (80.0-98.0); Mean Platelet Volume 10.4 fL (9.4-12.4); Monocytes Absolute Auto 0.7 X10*3/uL (0.1-1.2); Monocytes Percent Auto 10.2 % (2-11); Neutrophils Absolute Auto 4.6 x10*3/uL (2.0-8.3); Neutrophils Percent Auto 67.5 % (45-73); Platelet Count 152 X10*3/uL (160-400); Red Blood Count 3.99 X10*6/uL (4.60-5.80); Red Cell Distribution Width 13.5 % (11.0-16.0); White Blood Count 6.9 X10*3/uL (4.8-10.8)
[2024-04-05 06:24] LABS: INTERNATIONAL NORM RATIO 2.5 (0.9-1.1); Prothrombin Time 28.8 SEC (10.9-12.4)
[2024-04-05 06:38] LABS: Alanine Aminotransferase 35 U/L (0-40); Alkaline Phosphatase 129 U/L (39-117); Anion Gap 12 (12-20); Aspartate Amino Transferase 57 U/L (5-37); Bilirubin Direct 2.1 mg/dL (0.0-0.5); Bilirubin Total 3.2 mg/dL (0.0-1.0); Blood Urea Nitrogen 4 mg/dL (9-16); C Reactive Protein 3.29 mg/dL (< or = 0.50); Calcium 8.3 mg/dL (8.4-10.2); Carbon Dioxide 25 mmol/L (22-29); Chloride 105 mmol/L (96-108); Estimated Glomerular Filt Rate > 60; Glucose Random 115 mg/dL (60-115); Magnesium 1.4 mg/dL (1.6-2.6); Potassium 3.4 mmol/L (3.3-5.1); Sodium 139 mmol/L (135-145); Total Protein 5.2 g/dL (6.5-8.0)
[2024-04-05] MEDS: Magnesium Sulfate/H2O 2 GM/50 ML PIGGYBACK IV (06:53)
[2024-04-05 08:00] VITALS: BP 122/75; PULSE 114; RESP 18; TEMP 36.9; O2SAT 93
--- NOTE | 2024-04-05 08:37 | P.PNGS_ITS ---
Subjective Subjective Date of Service: 04/05/24 Interval history: Marvel reports upper abdominal pain and distention. Feels his hallucinations are better. Denies any nausea or vomiting. Apparently has been having loose stool. Physical Exam 2 Vital Signs: Vital Signs: Last Vital Signs Temp 98.5 F 04/05/24 08:00 Pulse 114 H 04/05/24 08:00 Resp 18 04/05/24 08:00 BP 122/75 04/05/24 08:00 Pulse Ox 93 04/05/24 08:00 O2 Del Method Room Air 04/05/24 08:00 BMI result Body Mass Index 24.7 Const: General: no acute distress Nutritional Appearance: thin Resp: Other: O2 sat 92% on room air Effort & Inspection: normal respiratory effort GI: Other: Distended abdomen with a fluid wave, tympanitic to percussion. Mild tenderness to deep palpation without rebound or guarding. Negative Duran sign. Skin: Other: Jaundice Objective Data Active Medications Acetaminophen (Acetaminophen 325 Mg Tablet) 650 mg PO Q6H PRN PRN Reason: Pain, Mild 1-3,fever,headache Last Admin: 04/04/24 20:03 Dose: 650 mg Documented By: MICHAELLE Atenolol (Atenolol 25 Mg Tablet) 25 mg PO DAILY [facility]; Protocol Last Admin: 04/04/24 09:22 Dose: 25 mg Documented By: HARESH Buprenorphine/Naloxone (Buprenorphine/Naloxone 2/0.5mg Film) 1 film SUBLINGUAL DAILY [facility] Last Admin: 04/04/24 08:54 Dose: 1 film Documented By: HARESH Calcium Carbonate (Calcium Carbonate 750 Mg Tab.Chew) 750 mg PO Q4H PRN PRN Reason: Heartburn Last Admin: 04/04/24 16:51 Dose: 750 mg Documented By: HARESH Folic Acid (Folic Acid 1 Mg Tablet) 1 mg PO DAILY [facility] Last Admin: 04/04/24 09:22 Dose: 1 mg Documented By: HARESH Furosemide (Furosemide 40 Mg Tablet) 40 mg PO DAILY [facility]; Protocol Last Admin: 04/04/24 09:22 Dose: 40 mg Documented By: HARESH Gabapentin (Gabapentin 100 Mg Capsule) 100 mg PO TID [facility] Last Admin: 04/04/24 20:01 Dose: 100 mg Documented By: MICHAELLE Thiamine HCl 100 mg/ Sodium (Chloride) 101 mls @ 202 mls/hr IV DAILY [facility] Last Infusion: 04/04/24 09:28 Dose: Infused Documented By: HARESH Piperacillin Sod/Tazobactam (Sod 4.5 gm/ Sodium Chloride) 100 mls @ 200 mls/hr IV Q6H [facility] Last Infusion: 04/05/24 02:16 Dose: Infused Documented By: MICHAELLE Magnesium Sulfate (Magnesium Sulfate/H2o) 2 gm in 50 mls @ 25 mls/hr IV ONCE ONE Stop: 04/05/24 08:37 Last Admin: 04/05/24 06:53 Dose: 25 mls/hr Documented By: MICHAELLE Lactulose (Lactulose 20 Gm/30 Ml Solution) 20 gm PO BID [facility] Last Admin: 04/04/24 20:01 Dose: 20 gm Documented By: MICHAELLE Lorazepam (Lorazepam 0.5 Mg Tablet) 0.5 mg PO Q8H PRN PRN Reason: Anxiety Last Admin: 04/04/24 20:01 Dose: 0.5 mg Documented By: MICHAELLE Magnesium Hydroxide (Milk Of Magnesia 30 Ml Oral.Susp) 30 ml PO DAILY PRN PRN Reason: Constipation Magnesium Ox[facility] ([facility] 400 Mg Tablet) [facility] Melatonin (Melatonin 3 Mg Tablet) 6 mg PO BEDTIME PRN PRN Reason: Insomnia Last Admin: 04/04/24 20:02 Dose: 6 mg Documented By: MICHAELLE Multivitamins/Vitamin C (Multivitamin Tablet) 1 tab PO DAILY [facility] Last Admin: 04/04/24 09:22 Dose: 1 tab Documented By: HARESH Nicotine (Nicotine 21 Mg Patch.Td24) 21 mg TRANSDERMA DAILY [facility] Last Admin: 04/04/24 08:54 Dose: 21 mg Documented By: HARESH Omeprazole (Omeprazole 20 Mg Capsule.Dr) 20 mg PO DAILY [facility] Last Admin: 04/04/24 09:22 Dose: 20 mg Documented By: HARESH Ondansetron HCl (Ondansetron Hcl 4 Mg/2 Ml Vial) 4 mg IVPUSH Q6H PRN PRN Reason: Nausea and Vomiting Last Admin: 04/04/24 08:57 Dose: 4 mg Documented By: HARESH Paliperidone (Paliperidone Er 3 Mg Tab.Er.24) 3 mg PO DAILY [facility] Last Admin: 04/04/24 09:22 Dose: 3 mg Documented By: HARESH Rifaximin (Rifaximin 550 Mg Tablet) 550 mg PO BID [facility] Last Admin: 04/04/24 20:01 Dose: 550 mg Documented By: MICHAELLE Sodium Chloride (0.9 % Sodium Chloride Flush 3 Ml Syringe) 3 ml IVFLUSH QSHIFT [facility] Last Admin: 04/04/24 20:05 Dose: 3 ml Documented By: MICHAELLE Spironolactone (Spironolactone 25 Mg Tablet) 50 mg PO DAILY [facility]; Protocol Labs 04/05/24 06:06 04/05/24 06:06 Labs: Laboratory Results - last 24 hr 04/05/24 06:06 MCV 93.5 MCH 33.6 H MCHC 35.9 RDW 13.5 Plt Count 152 L MPV 10.4 Immature Gran % (Auto) 1.0 H Neut % (Auto) 67.5 Lymph % (Auto) 16.5 L Stafford % (Auto) 10.2 Eos % (Auto) 4.4 H Baso % (Auto) 0.4 Lymph # (Auto) 1.1 L Stafford # (Auto) 0.7 Eos # (Auto) 0.3 Baso # (Auto) 0.0 Abs Immat Gran (auto) 0.07 H Absolute Neuts (auto) 4.6 Absolute Nucleated RBC 0.000 Nucleated RBC % (auto) 0.0 PT 28.8 H D INR 2.5 H Anion Gap 12 Estim Creat Clear Calc 220.0 Estimated GFR > 60 Random Glucose 115 Calcium 8.3 L Magnesium 1.4 L* Total Bilirubin 3.2 H Direct Bilirubin 2.1 H AST 57 H ALT 35 Alkaline Phosphatase 129 H C-Reactive Protein 3.29 H Total Protein 5.2 L Albumin 3.0 L Procedures Date of Service Date of Service: 04/05/24 Progress Note: A&P Assessment and plan (1) Cholelithiasis: Status: Acute (2) Ileus: Status: Acute Plan 34-year-old male patient with known history of gallstones, alcohol associated cirrhosis with ascites and encephalopathy, now with abdominal distention. Repeat CT abdomen and pelvis revealed diffuse distention of the small bowel and colon suggestive of ileus. The transverse colon is more markedly dilated but no evidence of obstruction is identified. Recommend GI consultation for possible decompression with endoscopy. Patient is not a good surgical candidate due to his severe liver disease. No surgical intervention recommended at this time. Time Spent With Patient Time: Total time managing care of this patient today ____ minutes. Quality Stroke Does the patient have a stroke diagnosis?: No VTE Prior VTE?: Yes VTE Risk Level:: Medical - moderate - high VTE Device Contraindication: N/A - Device Ordered VTE Drug Contraindication: Treatment Not Tolerated
[2024-04-05] MEDS: Paliperidone ER 3 MG TAB.ER.24 PO (08:47)
[2024-04-05] MEDS: Lactulose 20 GM/30 ML SOLUTION PO ×3 (08:47→20:27)
[2024-04-05] MEDS: LORazepam 0.5 MG TABLET PO ×2 (08:47→20:27)
[2024-04-05] MEDS: Spironolactone 25 MG TABLET 50 MG PO (08:48)
[2024-04-05] MEDS: Furosemide 40 MG TABLET PO (08:48)
[2024-04-05] MEDS: rifAXIMin 550 MG TABLET PO ×2 (08:48→20:27)
[2024-04-05] MEDS: Nicotine 21 MG PATCH.TD24 TRANSDERMA (08:48)
[2024-04-05] MEDS: Buprenorphine/Naloxone 2/0.5mg FILM 1 FILM SUBLINGUAL (08:48)
[2024-04-05] MEDS: atenoloL 25 MG TABLET PO (08:48)
[2024-04-05] MEDS: Omeprazole 20 MG CAPSULE.DR PO (08:48)
[2024-04-05] MEDS: Multivitamin TABLET 1 TAB PO (08:48)
[2024-04-05] MEDS: Gabapentin 100 MG CAPSULE PO ×3 (08:48→20:27)
[2024-04-05] MEDS: Folic Acid 1 MG TABLET PO (08:48)
[2024-04-05] MEDS: 0.9 % Sodium Chloride Flush 3 ML SYRINGE IVFLUSH ×2 (08:49→20:28)
[2024-04-05] MEDS: Acetaminophen 325 MG TABLET 650 MG PO (08:56)
[2024-04-05] MEDS: Thiamine HCL 100 MG in 0.9 % Sodium Chloride 100 ML 202 MG IV (09:49)
[2024-04-05] MEDS: Lactated Ringers 1,000 ML 80 ML IVCONT ×2 (09:50→22:57)
--- NOTE | 2024-04-05 14:00 | PC.NURSE ---
Soapsuds enema administered at approximately 1120. Patient tolerated holding solution for 10 minutes. Patient then assisted to commode where he expelled the solution, brown in color. Abdomen remains distended. Bowel sounds present x4.
--- NOTE | 2024-04-05 14:11 | HO.PM.IMPN ---
Subjective Subjective Date of Service: 04/05/24 Interval History: alert and interactive reporting abdominal distention not BM overnight but started moving bowels after enema no other events Review of Systems Review of Systems: Yes all other systems are reviewed and are negative Physical Exam Vital Signs: Vital Signs: Last Vital Signs Temp 98.5 F 04/05/24 08:00 Pulse 114 H 04/05/24 08:00 Resp 18 04/05/24 08:00 BP 122/75 04/05/24 08:00 Pulse Ox 93 04/05/24 08:00 O2 Del Method Room Air 04/05/24 08:00 BMI result Body Mass Index 24.7 Const: Other: Constitutional : Awake, interactive, not in distress Neck : Normal inspection, Supple Cardiovascular : RRR, no JVP, +! lower extremity edema Respiratory : good bilateral air entry, no crackles, wheezes or rhonchi Gastrointestinal: soft, lax, Normal bowel sounds, generalized mild tenderness , no surgical signs, distended with tympanic percussion Skin : Warm, Dry Neurological : Alert & oriented x3, No focal deficit Objective Data Active Medications Acetaminophen (Acetaminophen 325 Mg Tablet) 650 mg PO Q6H PRN PRN Reason: Pain, Mild 1-3,fever,headache Last Admin: 04/05/24 08:56 Dose: 650 mg Documented By: LEO Atenolol (Atenolol 25 Mg Tablet) 25 mg PO DAILY [facility]; Protocol Last Admin: 04/05/24 08:48 Dose: 25 mg Documented By: LEO Buprenorphine/Naloxone (Buprenorphine/Naloxone 2/0.5mg Film) 1 film SUBLINGUAL DAILY [facility] Last Admin: 04/05/24 08:48 Dose: 1 film Documented By: LEO Calcium Carbonate (Calcium Carbonate 750 Mg Tab.Chew) 750 mg PO Q4H PRN PRN Reason: Heartburn Last Admin: 04/04/24 16:51 Dose: 750 mg Documented By: HARESH Folic Acid (Folic Acid 1 Mg Tablet) 1 mg PO DAILY [facility] Last Admin: 04/05/24 08:48 Dose: 1 mg Documented By: LEO Furosemide (Furosemide 40 Mg Tablet) 40 mg PO DAILY [facility]; Protocol Last Admin: 04/05/24 08:48 Dose: 40 mg Documented By: LEO Gabapentin (Gabapentin 100 Mg Capsule) 100 mg PO TID [facility] Last Admin: 04/05/24 08:48 Dose: 100 mg Documented By: LEO Thiamine HCl 100 mg/ Sodium (Chloride) 101 mls @ 202 mls/hr IV DAILY [facility] Last Infusion: 04/05/24 10:40 Dose: Infused Documented By: LEO Piperacillin Sod/Tazobactam (Sod 4.5 gm/ Sodium Chloride) 100 mls @ 200 mls/hr IV Q6H [facility] Last Infusion: 04/05/24 09:46 Dose: Infused Documented By: LEO Lactated Ringer's (Lr) 1,000 mls @ 80 mls/hr IVCONT .[id number] [facility] Last Admin: 04/05/24 09:50 Dose: 80 mls/hr Documented By: LEO Lactulose (Lactulose 20 Gm/30 Ml Solution) 20 gm PO BID [facility] Last Admin: 04/05/24 08:47 Dose: 20 gm Documented By: LEO Lorazepam (Lorazepam 0.5 Mg Tablet) 0.5 mg PO Q8H PRN PRN Reason: Anxiety Last Admin: 04/05/24 08:47 Dose: 0.5 mg Documented By: LEO Magnesium Hydroxide (Milk Of Magnesia 30 Ml Oral.Susp) 30 ml PO DAILY PRN PRN Reason: Constipation Magnesium Oxide (Magnesium Oxide 400 Mg Tablet) 400 mg PO BIDPC [facility] Last Admin: 04/05/24 10:26 Dose: Not Given Documented By: LEO Non-Admin Reason: Physician Held Med Melatonin (Melatonin 3 Mg Tablet) 6 mg PO BEDTIME PRN PRN Reason: Insomnia Last Admin: 04/04/24 20:02 Dose: 6 mg Documented By: MICHAELLE Multivitamins/Vitamin C (Multivitamin Tablet) 1 tab PO DAILY [facility] Last Admin: 04/05/24 08:48 Dose: 1 tab Documented By: LEO Nicotine (Nicotine 21 Mg Patch.Td24) 21 mg TRANSDERMA DAILY [facility] Last Admin: 04/05/24 08:48 Dose: 21 mg Documented By: LEO Omeprazole (Omeprazole 20 Mg Capsule.Dr) 20 mg PO DAILY [facility] Last Admin: 04/05/24 08:48 Dose: 20 mg Documented By: LEO Ondansetron HCl (Ondansetron Hcl 4 Mg/2 Ml Vial) 4 mg IVPUSH Q6H PRN PRN Reason: Nausea and Vomiting Last Admin: 04/04/24 08:57 Dose: 4 mg Documented By: HARESH Paliperidone (Paliperidone Er 3 Mg Tab.Er.24) 3 mg PO DAILY [facility] Last Admin: 04/05/24 08:47 Dose: 3 mg Documented By: LEO Rifaximin (Rifaximin 550 Mg Tablet) 550 mg PO BID [facility] Last Admin: 04/05/24 08:48 Dose: 550 mg Documented By: LEO Sodium Chloride (0.9 % Sodium Chloride Flush 3 Ml Syringe) 3 ml IVFLUSH QSHIFT [facility] Last Admin: 04/05/24 08:49 Dose: 3 ml Documented By: LEO Spironolactone (Spironolactone 25 Mg Tablet) 50 mg PO DAILY [facility]; Protocol Last Admin: 04/05/24 08:48 Dose: 50 mg Documented By: LEO Labs 04/05/24 06:06 04/05/24 06:06 Labs: Laboratory Results - last 24 hr 04/05/24 06:06 MCV 93.5 MCH 33.6 H MCHC 35.9 RDW 13.5 Plt Count 152 L MPV 10.4 Immature Gran % (Auto) 1.0 H Neut % (Auto) 67.5 Lymph % (Auto) 16.5 L Dunn % (Auto) 10.2 Eos % (Auto) 4.4 H Baso % (Auto) 0.4 Lymph # (Auto) 1.1 L Dunn # (Auto) 0.7 Eos # (Auto) 0.3 Baso # (Auto) 0.0 Abs Immat Gran (auto) 0.07 H Absolute Neuts (auto) 4.6 Absolute Nucleated RBC 0.000 Nucleated RBC % (auto) 0.0 PT 28.8 H D INR 2.5 H Anion Gap 12 Estim Creat Clear Calc 220.0 Estimated GFR > 60 Random Glucose 115 Calcium 8.3 L Magnesium 1.4 L* Total Bilirubin 3.2 H Direct Bilirubin 2.1 H AST 57 H ALT 35 Alkaline Phosphatase 129 H C-Reactive Protein 3.29 H Total Protein 5.2 L Albumin 3.0 L Assessment and Plan (1) Ileus: Status: Acute (2) Acute hepatic encephalopathy: Status: Acute Plan 34M PMH alcohol dependence with alcoholic cirrhosis, mood disorder, cholelithiasis presented with altered mental status Acute metabolic encephalopathy due to acute hepatic encephalopathy due to alcohol dependence with alcoholic cirrhosis improving Lactulose tid continue rifaximin Goal 2-3 bowel movements per day Abdominal pain and distention having BMs , no nausea or vomiting CT abdomen showing Partial/intermittent distal small bowel obstruction. Hepatosplenomegaly and lymphadenopathy. Ascites, moderate volume. Probable cholelithiasis. Paracentesis attempted but minimal fluid, not consistent with SBP, kept NPO seems more of Ileus Surgery team following , no intervention planned GI consulted Pneumonia CT scan showed bilateral basal infiltrates more on Right On Zosyn hallucinations seems to be out of proportion to level of hepatic encephalopathy at time, now much better with no reported hallucinations Psych appreciated started Invega Acute hypomagnesemia replacement given , monitor Hyperglycemia a1c - 4.3, Resolved Cholelithiasis Surgery appreciated, conservative care History of DVT Completed course of Eliquis, Eliquis discontinued Mood disorder Ativan p.r.n. DVT prophylaxis mechanical due to elevated INR Full code reason for continued hospitalization: surgical and GI evaluation for SBO pending starting diet and tolerating PO Quality Stroke Does the patient have a stroke diagnosis?: No VTE Prior VTE?: Yes VTE Risk Level:: Medical - moderate - high VTE Device Contraindication: N/A - Device Ordered VTE Drug Contraindication: Treatment Not Tolerated
--- NOTE | 2024-04-05 14:32 | P.CNGI_ITS ---
History of Present Illness Data of Consult Service Date: 04/05/24 Requesting physician: Yves Anderson Primary Care Provider: Zander Coughlin MD HPI Reason for consult: Cirrhosis w encephalopathy 34 YM with ESLD related to ETOH abuse, mood disorder, cholelithiasis admitted to [facility] on 04/01/24 with altered mental status. Patient is followed in the GI clinic by Suzi Guerrero NP Patient had been in the ED day prior to presentation for abdominal pain and distention due to symptomatic ascites. Underwent paracentesis which was negative for SBP, had relief and was discharged home. Pt was brought to [facility] ED on 04/01/24 with altered mental status, hallucination. Ammonia 67, Patient reported noncompliance with lactulose. Also noted to have hyperglycemia of 242. He denied alcohol intake over last 3 weeks 01/01/[address] SCAN SHOWED: Partial/intermittent distal small bowel obstruction. Internal hernia cannot be excluded. Hepatosplenomegaly and lymphadenopathy. Ascites, moderate volume. Multifocal pneumonia, right lower lung lobes. Probable cholelithiasis. Review of Systems 2 Review of Systems: Yes all other systems are reviewed and are negative PMFSH Past Medical History Medical History Postprandial abdominal pain in right upper quadrant COVID Cirrhosis Neuropathy Sensory ataxia Clavicle fracture Alcohol abuse Foot pain, bilateral Abnormal complete blood count Abnormal liver enzymes No known health problems Family History Family History Paternal Grandfather Cancer Paternal Grandmother Cancer Surgical History Surgical History Hx of skin graft Social History Social History Household Members: Significant Other Housing: Condominium Do you presently have visiting nurse or other home services: No Alcohol intake: former Comment: patient refusing bed alarm, steady on feet, high fall risk per ASAELWA trcaya Patient Tobacco Use Status: Former Tobacco user Years Smoked: 10 e-Cigarette/Vaping Use: Currently Using Substance Use Type: Marijuana service: No 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 status: 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 Meds Allergies Allergy/AdvReac Type Severity Reaction Status Date / Time No Known Allergies Allergy Verified 04/01/24 04:17 Active Medications: Current Medications Acetaminophen (Acetaminophen 325 Mg Tablet) 650 mg PO Q6H PRN PRN Reason: Pain, Mild 1-3,fever,headache Last Admin: 04/05/24 08:56 Dose: 650 mg Atenolol (Atenolol 25 Mg Tablet) 25 mg PO DAILY [facility]; Protocol Last Admin: 04/05/24 08:48 Dose: 25 mg Buprenorphine/Naloxone (Buprenorphine/Naloxone 2/0.5mg Film) 1 film SUBLINGUAL DAILY [facility] Last Admin: 04/05/24 08:48 Dose: 1 film Calcium Carbonate (Calcium Carbonate 750 Mg Tab.Chew) 750 mg PO Q4H PRN PRN Reason: Heartburn Last Admin: 04/04/24 16:51 Dose: 750 mg Folic Acid (Folic Acid 1 Mg Tablet) 1 mg PO DAILY [facility] Last Admin: 04/05/24 08:48 Dose: 1 mg Furosemide (Furosemide 40 Mg Tablet) 40 mg PO DAILY [facility]; Protocol Last Admin: 04/05/24 08:48 Dose: 40 mg Gabapentin (Gabapentin 100 Mg Capsule) 100 mg PO TID [facility] Last Admin: 04/05/24 08:48 Dose: 100 mg Thiamine HCl 100 mg/ Sodium (Chloride) 101 mls @ 202 mls/hr IV DAILY [facility] Last Infusion: 04/05/24 10:40 Dose: Infused Piperacillin Sod/Tazobactam (Sod 4.5 gm/ Sodium Chloride) 100 mls @ 200 mls/hr IV Q6H [facility] Last Infusion: 04/05/24 09:46 Dose: Infused Lactated Ringer's (Lr) 1,000 mls @ 80 mls/hr IVCONT .[id number] [facility] Last Admin: 04/05/24 09:50 Dose: 80 mls/hr Lactulose (Lactulose 20 Gm/30 Ml Solution) 20 gm PO TID [facility] Lorazepam (Lorazepam 0.5 Mg Tablet) 0.5 mg PO Q8H PRN PRN Reason: Anxiety Last Admin: 04/05/24 08:47 Dose: 0.5 mg Magnesium Hydroxide (Milk Of Magnesia 30 Ml Oral.Susp) 30 ml PO DAILY PRN PRN Reason: Constipation Magnesium Oxide (Magnesium Oxide 400 Mg Tablet) 400 mg PO BIDPC [facility] Last Admin: 04/05/24 10:26 Dose: Not Given Melatonin (Melatonin 3 Mg Tablet) 6 mg PO BEDTIME PRN PRN Reason: Insomnia Last Admin: 04/04/24 20:02 Dose: 6 mg Multivitamins/Vitamin C (Multivitamin Tablet) 1 tab PO DAILY [facility] Last Admin: 04/05/24 08:48 Dose: 1 tab Nicotine (Nicotine 21 Mg Patch.Td24) 21 mg TRANSDERMA DAILY [facility] Last Admin: 04/05/24 08:48 Dose: 21 mg Omeprazole (Omeprazole 20 Mg Capsule.Dr) 20 mg PO DAILY [facility] Last Admin: 04/05/24 08:48 Dose: 20 mg Ondansetron HCl (Ondansetron Hcl 4 Mg/2 Ml Vial) 4 mg IVPUSH Q6H PRN PRN Reason: Nausea and Vomiting Last Admin: 04/04/24 08:57 Dose: 4 mg Paliperidone (Paliperidone Er 3 Mg Tab.Er.24) 3 mg PO DAILY [facility] Last Admin: 04/05/24 08:47 Dose: 3 mg Rifaximin (Rifaximin 550 Mg Tablet) 550 mg PO BID [facility] Last Admin: 04/05/24 08:48 Dose: 550 mg Sodium Chloride (0.9 % Sodium Chloride Flush 3 Ml Syringe) 3 ml IVFLUSH QSHIFT [facility] Last Admin: 04/05/24 08:49 Dose: 3 ml Spironolactone (Spironolactone 25 Mg Tablet) 50 mg PO DAILY [facility]; Protocol Last Admin: 04/05/24 08:48 Dose: 50 mg Home Medications ?Medication ?Instructions ?Recorded ?Confirmed ?Last Taken ?Type buprenorphine 2 mg-naloxone 0.5 mg 1 film sublingual DAILY 12/31/21 04/01/24 03/31/24 History sublingual film bisacodyl 5 mg tablet,delayed 10 mg PO BEDTIME PRN Constipation 04/01/24 04/01/24 Unknown History release (Dulcolax (bisacodyl)) Physical Exam 2 Vital Signs: Vital Signs: Last Vital Signs Temp 98.5 F 04/05/24 08:00 Pulse 114 H 04/05/24 08:00 Resp 18 04/05/24 08:00 BP 122/75 04/05/24 08:00 Pulse Ox 93 04/05/24 08:00 O2 Del Method Room Air 04/05/24 08:00 BMI result Body Mass Index 24.7 Const: Other: Constitutional : Awake, interactive, not in distress Neck : Normal inspection, Supple Cardiovascular : RRR, no JVP, +! lower extremity edema Respiratory : good bilateral air entry, no crackles, wheezes or rhonchi Gastrointestinal: soft, lax, no bowel sounds, generalized mild tenderness , no surgical signs, distended with tympanic percussion Skin : Warm, Dry Neurological : Alert & oriented x3, No focal deficit Results Labs 04/07/24 06:10 04/07/24 06:10 Labs: Short CBC 04/05/24 Range/Units 06:06 WBC 6.9 (4.8-10.8) X10*3/uL Hgb 13.4 L (14.0-18.0) g/dl Hct 37.3 L (42.0-52.0) % Plt Count 152 L (160-400) X10*3/uL BMP 04/05/24 06:06 Sodium 139 Potassium 3.4 Chloride 105 Carbon Dioxide 25 BUN 4 L Creatinine 0.55 Calcium 8.3 L Liver Function 04/05/24 Range/Units 06:06 Total Bilirubin 3.2 H (0.0-1.0) mg/dL Direct Bilirubin 2.1 H (0.0-0.5) mg/dL AST 57 H (5-37) U/L ALT 35 (0-40) U/L Alkaline Phosphatase 129 H (39-117) U/L Albumin 3.0 L (3.5-5.0) g/dL Assessment and Plan (1) Ileus: Status: Acute (2) Cholelithiasis: Status: Acute (3) Acute hepatic encephalopathy: Status: Acute (4) Cirrhosis: Qualifiers: Ascites presence: without ascites Hepatic cirrhosis type: alcoholic cirrhosis Qualified Code(s): K70.30 - Alcoholic cirrhosis of liver without ascites Status: Acute (5) Alcohol use disorder: Status: Acute Plan 34 YM with ESLD related to ETOH abuse, mood disorder, cholelithiasis admitted to [facility] on 04/01/24 with altered mental status due to hepatic encephalopathy. Patient had been in the ED day prior to presentation for abdominal pain and distention due to symptomatic ascites. Underwent paracentesis which was negative for SBP, had relief and was discharged home. Pt was brought to [facility] on 04/01/24 with altered mental status, hallucination. Ammonia 67, He denied alcohol intake over last 3 weeks Mental status has improved with treatment with lactulose and Rifaximin. Pt continues to have abdominal distension RECOMMENDATIONS: 1. Agree with [facility] protocol. 2. Continue lasix and spironolactone for ascites and lactulose and Rifaximin for hepatic encephalopathy 3. Fleet enema x 1 followed by rectal tube placement for abdominal distension. Procedures Date of Service Date of Service: 04/07/24
[2024-04-05 15:55] VITALS: BP 127/64; PULSE 74; RESP 20; TEMP 36.1; O2SAT 97
[2024-04-05 16:00] VITALS: BP 116/72; PULSE 108; RESP 12; TEMP 36.4; O2SAT 93
[2024-04-05] MEDS: Potassium Chloride/H20 10 MEQ/100 ML PIGGYBACK 100 MEQ IV ×2 (17:29→18:40)
[2024-04-05] MEDS: Potassium Chloride ER 20 MEQ TAB.ER.PRT 40 MEQ PO (17:29)
[2024-04-05 19:38] VITALS: BP 118/65; PULSE 109; RESP 16; TEMP 36.8; O2SAT 92
[2024-04-06] MEDS: Piperacillin Sodium/Tazobactam 4.5 GM in 0.9 % Sodium Chloride 100 ML IV ×4 (01:39→23:29)
[2024-04-06 03:22] VITALS: BP 116/73; PULSE 103; RESP 20; TEMP 36.1; O2SAT 90
[2024-04-06 06:27] VITALS: PULSE 102; O2SAT 93
[2024-04-06 06:31] LABS: Anion Gap 10 (12-20); Blood Urea Nitrogen 5 mg/dL (9-16); Calcium 7.9 mg/dL (8.4-10.2); Carbon Dioxide 27 mmol/L (22-29); Chloride 106 mmol/L (96-108); Creatinine Clr Calc Pharmacy 224.1; Estimated Glomerular Filt Rate > 60; Glucose Random 105 mg/dL (60-115); Magnesium 1.5 mg/dL (1.6-2.6); Potassium 3.5 mmol/L (3.3-5.1); Sodium 139 mmol/L (135-145)
[2024-04-06 07:51] VITALS: BP 102/67; PULSE 100; RESP 18; TEMP 36.4; O2SAT 92
[2024-04-06] MEDS: Magnesium Sulfate/H2O 2 GM/50 ML PIGGYBACK IV (07:59)
[2024-04-06] MEDS: Buprenorphine/Naloxone 2/0.5mg FILM 1 FILM SUBLINGUAL (08:46)
[2024-04-06] MEDS: Omeprazole 20 MG CAPSULE.DR PO (08:46)
[2024-04-06] MEDS: Gabapentin 100 MG CAPSULE PO ×3 (08:46→21:20)
[2024-04-06] MEDS: Paliperidone ER 3 MG TAB.ER.24 PO (08:46)
[2024-04-06] MEDS: Spironolactone 25 MG TABLET 50 MG PO (08:46)
[2024-04-06] MEDS: rifAXIMin 550 MG TABLET PO ×2 (08:46→21:20)
[2024-04-06] MEDS: Lactulose 20 GM/30 ML SOLUTION PO ×3 (08:46→21:20)
[2024-04-06] MEDS: Nicotine 21 MG PATCH.TD24 TRANSDERMA (08:46)
[2024-04-06] MEDS: Multivitamin TABLET 1 TAB PO (08:46)
[2024-04-06] MEDS: Folic Acid 1 MG TABLET PO (08:46)
[2024-04-06] MEDS: Lactated Ringers 1,000 ML 80 ML IVCONT (11:40)
[2024-04-06] MEDS: Thiamine HCL 100 MG in 0.9 % Sodium Chloride 100 ML 202 MG IV (11:40)
[2024-04-06 11:42] VITALS: BP 128/89; PULSE 134; RESP 20; O2SAT 92
[2024-04-06] MEDS: Furosemide 40 MG TABLET PO (11:57)
[2024-04-06] MEDS: atenoloL 25 MG TABLET PO (11:58)
--- NOTE | 2024-04-06 13:23 | MHC.CM.PN ---
Per MD rounds, patient is not medically cleared to discharge today. [facility] rehab is reviewing patient information. STR referrals sent. No accepting facility at this time. [facility], answer is still pending. DP to a facility via BLS.
--- NOTE | 2024-04-06 13:37 | P.PNIM_ITS ---
Subjective Subjective Date of Service: 04/06/24 Interval History: alert and interactive less abdominal distention having small BM overnight in rectal tube no other events Review of Systems Review of Systems: Yes all other systems are reviewed and are negative Physical Exam 2 Vital Signs: Vital Signs: Last Vital Signs Temp 97.6 F 04/06/24 07:51 Pulse 134 H 04/06/24 11:42 Resp 20 04/06/24 11:42 BP 128/89 04/06/24 11:42 Pulse Ox 92 04/06/24 11:42 O2 Del Method Room Air 04/06/24 11:42 O2 Flow Rate 2 04/05/24 15:55 BMI result Body Mass Index 24.7 Const: Other: Constitutional : Awake, interactive, not in distress Neck : Normal inspection, Supple Cardiovascular : RRR, no JVP, +! lower extremity edema Respiratory : good bilateral air entry, no crackles, wheezes or rhonchi Gastrointestinal: soft, lax, Normal bowel sounds, generalized mild tenderness , no surgical signs, distended with tympanic percussion Skin : Warm, Dry Neurological : Alert & oriented x3, No focal deficit Objective Data Active Medications Acetaminophen (Acetaminophen 325 Mg Tablet) 650 mg PO Q6H PRN PRN Reason: Pain, Mild 1-3,fever,headache Last Admin: 04/05/24 08:56 Dose: 650 mg Documented By: LEO Atenolol (Atenolol 25 Mg Tablet) 25 mg PO DAILY [facility]; Protocol Last Admin: 04/06/24 11:58 Dose: 25 mg Documented By: LEO Buprenorphine/Naloxone (Buprenorphine/Naloxone 2/0.5mg Film) 1 film SUBLINGUAL DAILY [facility] Last Admin: 04/06/24 08:46 Dose: 1 film Documented By: LEO Calcium Carbonate (Calcium Carbonate 750 Mg Tab.Chew) 750 mg PO Q4H PRN PRN Reason: Heartburn Last Admin: 04/04/24 16:51 Dose: 750 mg Documented By: HARESH Folic Acid (Folic Acid 1 Mg Tablet) 1 mg PO DAILY [facility] Last Admin: 04/06/24 08:46 Dose: 1 mg Documented By: LEO Furosemide (Furosemide 40 Mg Tablet) 40 mg PO DAILY [facility]; Protocol Last Admin: 04/06/24 11:57 Dose: 40 mg Documented By: LEO Gabapentin (Gabapentin 100 Mg Capsule) 100 mg PO TID [facility] Last Admin: 04/06/24 08:46 Dose: 100 mg Documented By: LEO Thiamine HCl 100 mg/ Sodium (Chloride) 101 mls @ 202 mls/hr IV DAILY [facility] Last Infusion: 04/06/24 12:30 Dose: Infused Documented By: LEO Lactated Ringer's (Lr) 1,000 mls @ 80 mls/hr IVCONT .[id number] [facility] Last Admin: 04/06/24 11:40 Dose: 80 mls/hr Documented By: LEO Piperacillin Sod/Tazobactam (Sod 4.5 gm/ Sodium Chloride) 100 mls @ 200 mls/hr IV Q6H [facility] Last Infusion: 04/06/24 11:29 Dose: Infused Documented By: LEO Lactulose (Lactulose 20 Gm/30 Ml Solution) 20 gm PO TID [facility] Last Admin: 04/06/24 08:46 Dose: 20 gm Documented By: LEO Magnesium Hydroxide (Milk Of Magnesia 30 Ml Oral.Susp) 30 ml PO DAILY PRN PRN Reason: Constipation Magnesium Oxide (Magnesium Oxide 400 Mg Tablet) 400 mg PO BIDPC [facility] Last Admin: 04/06/24 08:46 Dose: Not Given Documented By: LEO Non-Admin Reason: Physician Held Med Multivitamins/Vitamin C (Multivitamin Tablet) 1 tab PO DAILY [facility] Last Admin: 04/06/24 08:46 Dose: 1 tab Documented By: LEO Nicotine (Nicotine 21 Mg Patch.Td24) 21 mg TRANSDERMA DAILY [facility] Last Admin: 04/06/24 08:46 Dose: 21 mg Documented By: LEO Omeprazole (Omeprazole 20 Mg Capsule.Dr) 20 mg PO DAILY [facility] Last Admin: 04/06/24 08:46 Dose: 20 mg Documented By: LEO Ondansetron HCl (Ondansetron Hcl 4 Mg/2 Ml Vial) 4 mg IVPUSH Q6H PRN PRN Reason: Nausea and Vomiting Last Admin: 04/04/24 08:57 Dose: 4 mg Documented By: HARESH Paliperidone (Paliperidone Er 3 Mg Tab.Er.24) 3 mg PO DAILY [facility] Last Admin: 04/06/24 08:46 Dose: 3 mg Documented By: LEO Rifaximin (Rifaximin 550 Mg Tablet) 550 mg PO BID [facility] Last Admin: 04/06/24 08:46 Dose: 550 mg Documented By: LEO Sodium Chloride (0.9 % Sodium Chloride Flush 3 Ml Syringe) 3 ml IVFLUSH QSHIFT [facility] Last Admin: 04/06/24 07:01 Dose: Not Given Documented By: LEO Non-Admin Reason: IV Running Spironolactone (Spironolactone 25 Mg Tablet) 50 mg PO DAILY [facility]; Protocol Last Admin: 04/06/24 08:46 Dose: 50 mg Documented By: LEO Zolpidem Tartrate (Zolpidem Tartrate 5 Mg Tablet) 5 mg PO BEDTIME PRN PRN Reason: Insomnia Last Admin: 04/05/24 20:27 Dose: 5 mg Documented By: MCIHAELLE Labs 04/05/24 06:06 04/06/24 05:56 Labs: Laboratory Results - last 24 hr 04/06/24 05:56 Anion Gap 10 L Estim Creat Clear Calc 224.1 Estimated GFR > 60 Random Glucose 105 Calcium 7.9 L Magnesium 1.5 L Assessment and Plan (1) Ileus: Status: Acute (2) Hepatic encephalopathy: Status: Acute (3) Cirrhosis: Status: Acute Plan 34M PMH alcohol dependence with alcoholic cirrhosis, mood disorder, cholelithiasis presented with altered mental status Abdominal pain and distention having BMs , no nausea or vomiting CT abdomen showing Partial/intermittent distal small bowel obstruction. Hepatosplenomegaly and lymphadenopathy. Ascites, moderate volume. Probable cholelithiasis. Paracentesis attempted but minimal fluid, not consistent with SBP, kept NPO KUB suggesting Ileus Surgery team following , no intervention planned GI consulted , Rectal tube and enema repeat KUB Acute metabolic encephalopathy due to acute hepatic encephalopathy due to alcohol dependence with alcoholic cirrhosis improving Lactulose tid continue rifaximin Goal 2-3 bowel movements per day Pneumonia CT scan showed bilateral basal infiltrates more on Right On Zosyn hallucinations improved seems to be out of proportion to level of hepatic encephalopathy at time, now much better with no reported hallucinations Psych appreciated started Invega Acute hypomagnesemia replacement given , monitor Hyperglycemia a1c - 4.3, Resolved Cholelithiasis Surgery appreciated, conservative care History of DVT Completed course of Eliquis, Eliquis discontinued Mood disorder Ativan p.r.n. DVT prophylaxis mechanical due to elevated INR Full code reason for continued hospitalization: surgical and GI evaluation for SBO pending starting diet and tolerating PO Quality Stroke Does the patient have a stroke diagnosis?: No VTE Prior VTE?: Yes VTE Risk Level:: Medical - moderate - high VTE Device Contraindication: N/A - Device Ordered VTE Drug Contraindication: Treatment Not Tolerated
[2024-04-06] MEDS: Potassium Chloride/H20 10 MEQ/100 ML PIGGYBACK 70 MEQ IV (14:42)
[2024-04-06 15:05] VITALS: BP 110/71; PULSE 104; RESP 17; TEMP 36.7; O2SAT 93
[2024-04-06] MEDS: Potassium Chloride/H20 10 MEQ/100 ML PIGGYBACK 80 MEQ IV (16:42)
--- NOTE | 2024-04-06 16:48 | PC.NURSE ---
Primary RN asked this video game script writer to place a second IV, upon asking patient if he would like to proceed he refused. Primary RN notified.
[2024-04-06 19:36] VITALS: BP 122/73; PULSE 115; RESP 20; TEMP 36.2; O2SAT 92
[2024-04-06] MEDS: Zolpidem Tartrate 5 MG TABLET PO (23:53)
[2024-04-07] MEDS: Lactated Ringers 1,000 ML 80 ML IVCONT (00:10)
[2024-04-07] MEDS: 0.9 % Sodium Chloride Flush 3 ML SYRINGE IVFLUSH ×3 (00:11→21:37)
[2024-04-07 03:10] VITALS: BP 122/69; PULSE 93; RESP 18; TEMP 36.9; O2SAT 91
[2024-04-07] MEDS: Piperacillin Sodium/Tazobactam 4.5 GM in 0.9 % Sodium Chloride 100 ML IV ×4 (05:47→22:30)
[2024-04-07 06:26] LABS: MANUAL DIFF FLAG NO
[2024-04-07 06:30] LABS: Basophils Percent Auto 0.6 % (0-2); Eosinophils Absolute Auto 0.2 X10*3/uL (0.0-0.4); Eosinophils Percent Auto 4.9 % (0-4); Hematocrit 36.7 % (42.0-52.0); Hemoglobin 12.7 g/dl (14.0-18.0); Imm Gran Abs Auto 0.02 X10*3/uL (0.00-0.03); Imm Gran Pct Auto 0.4 % (0.0-0.4); Lymphocytes Absolute Auto 1.3 X10*3/uL (1.2-4.9); Lymphocytes Percent Auto 26.8 % (20-40); Mean Corpuscular HGB Conc 34.6 g/dl (31.0-36.0); Mean Corpuscular Hemoglobin 33.1 pg (27.0-33.0); Mean Corpuscular Volume 95.6 fL (80.0-98.0); Mean Platelet Volume 10.7 fL (9.4-12.4); Monocytes Absolute Auto 0.5 X10*3/uL (0.1-1.2); Monocytes Percent Auto 9.2 % (2-11); Neutrophils Absolute Auto 2.8 x10*3/uL (2.0-8.3); Neutrophils Percent Auto 58.1 % (45-73); Platelet Count 141 X10*3/uL (160-400); Red Blood Count 3.84 X10*6/uL (4.60-5.80); Red Cell Distribution Width 13.6 % (11.0-16.0); White Blood Count 4.9 X10*3/uL (4.8-10.8)
[2024-04-07 06:45] LABS: Alanine Aminotransferase 20 U/L (0-40); Albumin Level 2.9 g/dL (3.5-5.0); Alkaline Phosphatase 130 U/L (39-117); Anion Gap 9 (12-20); Aspartate Amino Transferase 57 U/L (5-37); Bilirubin Direct 2.1 mg/dL (0.0-0.5); Bilirubin Total 3.5 mg/dL (0.0-1.0); Blood Urea Nitrogen 4 mg/dL (9-16); Calcium 7.3 mg/dL (8.4-10.2); Carbon Dioxide 28 mmol/L (22-29); Chloride 104 mmol/L (96-108); Creatinine Clr Calc Pharmacy 216.1; Estimated Glomerular Filt Rate > 60; Glucose Random 101 mg/dL (60-115); Potassium 3.2 mmol/L (3.3-5.1); Sodium 138 mmol/L (135-145)
[2024-04-07 07:26] VITALS: BP 111/67; PULSE 97; RESP 18; TEMP 36.6; O2SAT 92
[2024-04-07] MEDS: Paliperidone ER 3 MG TAB.ER.24 PO (08:35)
[2024-04-07] MEDS: Omeprazole 20 MG CAPSULE.DR PO (08:35)
[2024-04-07] MEDS: Lactulose 20 GM/30 ML SOLUTION PO (08:35)
[2024-04-07] MEDS: Magnesium Oxide 400 MG TABLET PO ×2 (08:35→16:48)
[2024-04-07] MEDS: Multivitamin TABLET 1 TAB PO (08:35)
[2024-04-07 08:36] VITALS: BP 111/67
[2024-04-07] MEDS: Furosemide 40 MG TABLET PO (08:36)
[2024-04-07] MEDS: Spironolactone 25 MG TABLET 50 MG PO (08:36)
[2024-04-07] MEDS: Folic Acid 1 MG TABLET PO (08:36)
[2024-04-07] MEDS: Gabapentin 100 MG CAPSULE PO ×3 (08:36→21:36)
[2024-04-07] MEDS: rifAXIMin 550 MG TABLET PO ×2 (08:36→21:36)
[2024-04-07 08:37] VITALS: BP 111/67; PULSE 97
[2024-04-07] MEDS: atenoloL 25 MG TABLET PO (08:37)
[2024-04-07] MEDS: Nicotine 21 MG PATCH.TD24 TRANSDERMA (08:38)
--- NOTE | 2024-04-07 08:43 | PC.NURSE ---
Pt. requested Suboxone to be given after 929.
[2024-04-07] MEDS: Buprenorphine/Naloxone 2/0.5mg FILM 1 FILM SUBLINGUAL (09:49)
[2024-04-07] MEDS: Thiamine HCL 100 MG in 0.9 % Sodium Chloride 100 ML 202 MG IV (09:52)
[2024-04-07] MEDS: Potassium Chloride ER 20 MEQ TAB.ER.PRT 40 MEQ PO (10:36)
--- NOTE | 2024-04-07 11:06 | HO.PM.IMPN ---
Subjective Subjective Date of Service: 04/07/24 Interval History: alert and interactive significant abdominal distention not much of BM overnight in rectal tube no other events Review of Systems Review of Systems: Yes all other systems are reviewed and are negative Physical Exam Vital Signs: Vital Signs: Last Vital Signs Temp 97.8 F 04/07/24 07:26 Pulse 97 04/07/24 08:37 Resp 18 04/07/24 07:26 BP 111/67 04/07/24 08:37 Pulse Ox 92 04/07/24 07:26 O2 Del Method Room Air 04/07/24 07:26 O2 Flow Rate 2 04/05/24 15:55 BMI result Body Mass Index 24.7 Const: Other: Constitutional : Awake, interactive, not in distress Neck : Normal inspection, Supple Cardiovascular : RRR, no JVP, +! lower extremity edema Respiratory : good bilateral air entry, no crackles, wheezes or rhonchi Gastrointestinal: soft, lax, no bowel sounds, generalized mild tenderness , no surgical signs, distended with tympanic percussion Skin : Warm, Dry Neurological : Alert & oriented x3, No focal deficit Objective Data Active Medications Acetaminophen (Acetaminophen 325 Mg Tablet) 650 mg PO Q6H PRN PRN Reason: Pain, Mild 1-3,fever,headache Last Admin: 04/05/24 08:56 Dose: 650 mg Documented By: LEO Atenolol (Atenolol 25 Mg Tablet) 25 mg PO DAILY [facility]; Protocol Last Admin: 04/07/24 08:37 Dose: 25 mg Documented By: LILLIAN Buprenorphine/Naloxone (Buprenorphine/Naloxone 2/0.5mg Film) 1 film SUBLINGUAL DAILY [facility] Last Admin: 04/07/24 09:49 Dose: 1 film Documented By: LILLIAN Comments: Pt. requested med to be given later Calcium Carbonate (Calcium Carbonate 750 Mg Tab.Chew) 750 mg PO Q4H PRN PRN Reason: Heartburn Last Admin: 04/04/24 16:51 Dose: 750 mg Documented By: HARESH Folic Acid (Folic Acid 1 Mg Tablet) 1 mg PO DAILY [facility] Last Admin: 04/07/24 08:36 Dose: 1 mg Documented By: LILLIAN Furosemide (Furosemide 40 Mg Tablet) 40 mg PO DAILY [facility]; Protocol Last Admin: 04/07/24 08:36 Dose: 40 mg Documented By: LILLIAN Comments: Gabapentin (Gabapentin 100 Mg Capsule) 100 mg PO TID [facility] Last Admin: 04/07/24 08:36 Dose: 100 mg Documented By: LILLIAN Thiamine HCl 100 mg/ Sodium (Chloride) 101 mls @ 202 mls/hr IV DAILY [facility] Last Infusion: 04/07/24 10:39 Dose: Infused Documented By: LILLIAN Piperacillin Sod/Tazobactam (Sod 4.5 gm/ Sodium Chloride) 100 mls @ 200 mls/hr IV Q6H [facility] Last Admin: 04/07/24 10:43 Dose: 200 mls/hr Documented By: LILLIAN Potassium Chloride (Potassium Chloride/H20) 10 meq in 100 mls @ 100 mls/hr IV Q1H [facility] Stop: 04/07/24 14:14 Magnesium Sulfate (Magnesium Sulfate/H2o) 2 gm in 50 mls @ 25 mls/hr IV ONCE ONE Stop: 04/07/24 12:00 Potassium Chloride/Dextrose/Sod Cl (Kcl 40 Meq In 5% Dex/0.9% Sod) 40 meq in 1,000 mls @ 80 mls/hr IVCONT .[id number] [facility] Lactulose (Lactulose 20 Gm/30 Ml Solution) 20 gm PO TID [facility] Last Admin: 04/07/24 08:35 Dose: 20 gm Documented By: LILLIAN Magnesium Hydroxide (Milk Of Magnesia 30 Ml Oral.Susp) 30 ml PO DAILY PRN PRN Reason: Constipation Magnesium Oxide (Magnesium Oxide 400 Mg Tablet) 400 mg PO BIDPC [facility] Last Admin: 04/07/24 08:35 Dose: 400 mg Documented By: LILLIAN Multivitamins/Vitamin C (Multivitamin Tablet) 1 tab PO DAILY [facility] Last Admin: 04/07/24 08:35 Dose: 1 tab Documented By: LILLIAN Nicotine (Nicotine 21 Mg Patch.Td24) 21 mg TRANSDERMA DAILY [facility] Last Admin: 04/07/24 08:38 Dose: 21 mg Documented By: LILLIAN Omeprazole (Omeprazole 20 Mg Capsule.Dr) 20 mg PO DAILY [facility] Last Admin: 04/07/24 08:35 Dose: 20 mg Documented By: LILLIAN Ondansetron HCl (Ondansetron Hcl 4 Mg/2 Ml Vial) 4 mg IVPUSH Q6H PRN PRN Reason: Nausea and Vomiting Last Admin: 04/04/24 08:57 Dose: 4 mg Documented By: GRAZLIZZETTE Paliperidone (Paliperidone Er 3 Mg Tab.Er.24) 3 mg PO DAILY [facility] Last Admin: 04/07/24 08:35 Dose: 3 mg Documented By: LILLIAN Rifaximin (Rifaximin 550 Mg Tablet) 550 mg PO BID [facility] Last Admin: 04/07/24 08:36 Dose: 550 mg Documented By: LILLIAN Sodium Chloride (0.9 % Sodium Chloride Flush 3 Ml Syringe) 3 ml IVFLUSH QSHIFT [facility] Last Admin: 04/07/24 08:34 Dose: Not Given Documented By: LILLIAN Non-Admin Reason: IV Running Spironolactone (Spironolactone 25 Mg Tablet) 50 mg PO DAILY [facility]; Protocol Last Admin: 04/07/24 08:36 Dose: 50 mg Documented By: LILLIAN Zolpidem Tartrate (Zolpidem Tartrate 5 Mg Tablet) 5 mg PO BEDTIME PRN PRN Reason: Insomnia Last Admin: 04/06/24 23:53 Dose: 5 mg Documented By: SEXK Labs 04/07/24 06:10 04/07/24 06:10 Labs: Laboratory Results - last 24 hr 04/07/24 06:10 MCV 95.6 MCH 33.1 H MCHC 34.6 RDW 13.6 Plt Count 141 L MPV 10.7 Immature Gran % (Auto) 0.4 Neut % (Auto) 58.1 Lymph % (Auto) 26.8 [place] % (Auto) 9.2 Eos % (Auto) 4.9 H Baso % (Auto) 0.6 Lymph # (Auto) 1.3 [place] # (Auto) 0.5 Eos # (Auto) 0.2 Baso # (Auto) 0.0 Abs Immat Gran (auto) 0.02 Absolute Neuts (auto) 2.8 Absolute Nucleated RBC 0.000 Nucleated RBC % (auto) 0.0 Anion Gap 9 L Estim Creat Clear Calc 216.1 Estimated GFR > 60 Random Glucose 101 Calcium 7.3 L D Total Bilirubin 3.5 H Direct Bilirubin 2.1 H AST 57 H ALT 20 Alkaline Phosphatase 130 H Total Protein 5.0 L Albumin 2.9 L Assessment and Plan (1) Ileus: Status: Acute (2) Cholelithiasis: Status: Acute (3) Cirrhosis: Status: Acute Plan 34M PMH alcohol dependence with alcoholic cirrhosis, mood disorder, cholelithiasis presented with altered mental status Abdominal pain and distention 2/2 Ileus having BMs , no nausea or vomiting CT abdomen showing Partial/intermittent distal small bowel obstruction. Hepatosplenomegaly and lymphadenopathy. Ascites, moderate volume. Probable cholelithiasis. Paracentesis attempted but minimal fluid, not consistent with SBP kept NPO Start PPN KUB suggesting Ileus Surgery team following , no intervention planned GI consulted , Rectal tube and enema repeat KUB Acute metabolic encephalopathy due to acute hepatic encephalopathy due to alcohol dependence with alcoholic cirrhosis improving Lactulose tid continue rifaximin Goal 2-3 bowel movements per day Pneumonia CT scan showed bilateral basal infiltrates more on Right On Zosyn hallucinations improved seems to be out of proportion to level of hepatic encephalopathy at time, now much better with no reported hallucinations Psych appreciated started Invega Acute hypomagnesemia replacement given , monitor Hyperglycemia a1c - 4.3, Resolved Cholelithiasis Surgery appreciated, conservative care History of DVT Completed course of Eliquis, Eliquis discontinued Mood disorder Ativan p.r.n. DVT prophylaxis mechanical due to elevated INR Full code reason for continued hospitalization: surgical and GI evaluation for SBO pending starting diet and tolerating PO Quality Stroke Does the patient have a stroke diagnosis?: No VTE Prior VTE?: Yes VTE Risk Level:: Medical - moderate - high VTE Device Contraindication: N/A - Device Ordered VTE Drug Contraindication: Treatment Not Tolerated
[2024-04-07] MEDS: Potassium Chloride/H20 10 MEQ/100 ML PIGGYBACK 100 MEQ IV ×4 (11:17→17:39)
[2024-04-07] MEDS: Magnesium Sulfate/H2O 2 GM/50 ML PIGGYBACK IV (11:27)
--- NOTE | 2024-04-07 11:37 | MHC.CLN ---
RE: CONSULT FOR PPN PT IS NPO REVIEWED LABS DISCUSSED WITH PHARMACY 04/07/24 RECOMMEND PPN AT 55ML/HR TO PROVIDE 673KCALS, 132G DEXTROSE, 56G PROTEIN REPLETE LYTES NEEDED; CHECK TRIGS 04/08/24 RECOMMEND INCREASING PPN TO MAX GOAL RATE 85ML/HR TO PROVIDE 1040 KCALS, 204G DEXTROSE, 87G PROTEIN (1.0G/KG) HOLD LIPIDS REPLETE LYTES NEEDED FULL NUTRITION ASSESSMENT TO FOLLOW RD CAN BE REACHED VIA TIGER CONNECT DURING OFF HOURS IF NEEDED
[2024-04-07 11:59] LABS: Magnesium 1.7 mg/dL (1.6-2.6); Phosphorus 2.9 mg/dL (2.7-4.5); Triglycerides 71 mg/dL (<150)
--- NOTE | 2024-04-07 13:22 | PM.EVENT ---
Event Note Date of Service: 04/07/24 Event Note: 34 YM with ESLD related to ETOH abuse, mood disorder, cholelithiasis [place] [facility] [place] with altered mental status due to hepatic encephalopathy. Patient had been in the ED day prior to presentation for abdominal pain and distention due to symptomatic ascites. Underwent paracentesis which was negative for SBP, had relief and was discharged home. Pt [place] [facility] with altered mental status, hallucination. Ammonia 67, He denied alcohol intake over last 3 weeks Mental status has improved with treatment with lactulose and Rifaximin. Pt continues to have abdominal distension despite output of 800 to 900 ml in the rectal bag. Option for IV Neostigmine use versus colon decompression with colonoscopy discussed with pt and his Mom. Pt would like to proceed with IV Neostigmine first RECOMMENDATIONS: 1. Place pt on Telemetry and have atropine by the bedside 2. IV Glycopyrrolate 0.4 mg prior to Neostigmine administration (to reduce side effects) 3. Neostigmine 2 mg by slow IV injection over 5 minutes. 4. Pt to be monitored for 30 min after Neostigmine injection ADDENDUM: 1:50 pm Patient was given 0.4 mg glycopyrrolate IV followed by new stigmata 2 mg IV over 5 minutes. He was kept on tele and blood pressure was monitored and no hypotension or bradycardia noted. Patient past liquid stools after the injection. Pt can be started on a full liquid diet in the am if abdominal distension improves Time Spent With Patient Time: Total time managing care of this patient today ____ minutes.
[2024-04-07] MEDS: Glycopyrrolate 0.2 MG/ML VIAL 0.4 MG IVPUSH (13:42)
[2024-04-07 15:08] VITALS: BP 110/71; PULSE 99; RESP 16; TEMP 37.1; O2SAT 95
[2024-04-07 19:23] VITALS: BP 107/69; PULSE 90; RESP 18; TEMP 37; O2SAT 96
--- NOTE | 2024-04-07 19:30 | PC.NURSE ---
Zion and Ines given by HIRAM ROBIN at bedside, pt. stable with starting vitals at 1340- BP 113/67, HR 120, 90%RA and ending vitals at 1420 BP 103/61, HR 103, 93% 1Liter.
[2024-04-07] MEDS: Parenteral Nutrition 1,320 ML 55 ML IV (21:37)
[2024-04-07] MEDS: Zolpidem Tartrate 5 MG TABLET PO (21:49)
[2024-04-08] VITALS (17 sets, daily range): BP systolic 93–108; BP diastolic 50–66; PULSE 84–98; RESP 14–18; TEMP 36.2–37.1; O2SAT 90–96
[2024-04-08] MEDS: Piperacillin Sodium/Tazobactam 4.5 GM in 0.9 % Sodium Chloride 100 ML IV ×4 (05:22→23:52)
[2024-04-08 06:40] LABS: INTERNATIONAL NORM RATIO 2.4 (0.9-1.1); Prothrombin Time 28.5 SEC (10.9-12.4)
[2024-04-08 06:59] LABS: MANUAL DIFF FLAG NO
[2024-04-08 07:10] LABS: Basophils Percent Auto 0.8 % (0-2); Eosinophils Absolute Auto 0.2 X10*3/uL (0.0-0.4); Imm Gran Abs Auto 0.01 X10*3/uL (0.00-0.03); Imm Gran Pct Auto 0.3 % (0.0-0.4); Lymphocytes Percent Auto 25.1 % (20-40); Mean Corpuscular HGB Conc 35.3 g/dl (31.0-36.0); Mean Corpuscular Hemoglobin 33.4 pg (27.0-33.0); Mean Corpuscular Volume 94.7 fL (80.0-98.0); Mean Platelet Volume 10.9 fL (9.4-12.4); Monocytes Absolute Auto 0.5 X10*3/uL (0.1-1.2); Neutrophils Absolute Auto 2.2 x10*3/uL (2.0-8.3); Neutrophils Percent Auto 55.8 % (45-73); Platelet Count 135 X10*3/uL (160-400); Red Blood Count 3.59 X10*6/uL (4.60-5.80); Red Cell Distribution Width 13.6 % (11.0-16.0)
[2024-04-08 07:14] LABS: Alanine Aminotransferase 24 U/L (0-40); Albumin Level 2.6 g/dL (3.5-5.0); Alkaline Phosphatase 110 U/L (39-117); Anion Gap 9 (12-20); Aspartate Amino Transferase 55 U/L (5-37); Bilirubin Total 3.3 mg/dL (0.0-1.0); Blood Urea Nitrogen 3 mg/dL (9-16); Calcium 7.7 mg/dL (8.4-10.2); Carbon Dioxide 28 mmol/L (22-29); Chloride 106 mmol/L (96-108); Creatinine Clr Calc Pharmacy 252.1; Estimated Glomerular Filt Rate > 60; Glucose Random 109 mg/dL (60-115); Phosphorus 2.8 mg/dL (2.7-4.5); Potassium 3.5 mmol/L (3.3-5.1); Sodium 139 mmol/L (135-145); Total Protein 4.5 g/dL (6.5-8.0)
[2024-04-08] MEDS: Folic Acid 1 MG TABLET PO (08:15)
[2024-04-08] MEDS: Omeprazole 20 MG CAPSULE.DR PO (08:16)
[2024-04-08] MEDS: Multivitamin TABLET 1 TAB PO (08:16)
[2024-04-08] MEDS: atenoloL 25 MG TABLET PO (08:16)
[2024-04-08] MEDS: Magnesium Oxide 400 MG TABLET PO ×2 (08:16→17:45)
[2024-04-08] MEDS: Gabapentin 100 MG CAPSULE PO ×3 (08:16→20:59)
[2024-04-08] MEDS: rifAXIMin 550 MG TABLET PO ×2 (08:16→20:59)
[2024-04-08] MEDS: Spironolactone 25 MG TABLET 50 MG PO (08:16)
[2024-04-08] MEDS: Paliperidone ER 3 MG TAB.ER.24 PO (08:17)
[2024-04-08] MEDS: Nicotine 21 MG PATCH.TD24 TRANSDERMA (08:19)
[2024-04-08] MEDS: Buprenorphine/Naloxone 2/0.5mg FILM 1 FILM SUBLINGUAL (08:19)
[2024-04-08] MEDS: Thiamine HCL 100 MG in 0.9 % Sodium Chloride 100 ML 202 MG IV (08:21)
[2024-04-08] MEDS: 0.9 % Sodium Chloride Flush 3 ML SYRINGE IVFLUSH ×3 (08:21→20:59)
--- NOTE | 2024-04-08 11:14 | HO.PM.IMPN ---
Subjective Subjective Date of Service: 04/08/24 Interval History: alert and interactive still having significant abdominal distention not much of BM overnight in rectal tube no other events Review of Systems Review of Systems: Yes all other systems are reviewed and are negative Physical Exam Vital Signs: Vital Signs: Last Vital Signs Temp 98.2 F 04/08/24 07:09 Pulse 90 04/08/24 08:16 Resp 14 04/08/24 07:09 BP 108/65 04/08/24 08:16 Pulse Ox 96 04/08/24 07:09 O2 Del Method Nasal Cannula 04/08/24 07:09 O2 Flow Rate 2 04/08/24 07:09 BMI result Body Mass Index 24.7 Const: Other: Constitutional : Awake, interactive, not in distress Neck : Normal inspection, Supple Cardiovascular : RRR, no JVP, +! lower extremity edema Respiratory : good bilateral air entry, no crackles, wheezes or rhonchi Gastrointestinal: soft, lax, no bowel sounds, generalized mild tenderness , no surgical signs, distended with tympanic percussion Skin : Warm, Dry Neurological : Alert & oriented x3, No focal deficit Objective Data Active Medications Acetaminophen (Acetaminophen 325 Mg Tablet) 650 mg PO Q6H PRN PRN Reason: Pain, Mild 1-3,fever,headache Last Admin: 04/05/24 08:56 Dose: 650 mg Documented By: LEO Atenolol (Atenolol 25 Mg Tablet) 25 mg PO DAILY [facility]; Protocol Last Admin: 04/08/24 08:16 Dose: 25 mg Documented By: LILLIAN Buprenorphine/Naloxone (Buprenorphine/Naloxone 2/0.5mg Film) 1 film SUBLINGUAL DAILY [facility] Last Admin: 04/08/24 08:19 Dose: 1 film Documented By: LILLIAN Calcium Carbonate (Calcium Carbonate 750 Mg Tab.Chew) 750 mg PO Q4H PRN PRN Reason: Heartburn Last Admin: 04/04/24 16:51 Dose: 750 mg Documented By: HARESH Folic Acid (Folic Acid 1 Mg Tablet) 1 mg PO DAILY [facility] Last Admin: 04/08/24 08:15 Dose: 1 mg Documented By: LILLIAN Furosemide (Furosemide 40 Mg Tablet) 40 mg PO DAILY [facility]; Protocol Last Admin: 04/07/24 08:36 Dose: 40 mg Documented By: LILLIAN Comments: Gabapentin (Gabapentin 100 Mg Capsule) 100 mg PO TID [facility] Last Admin: 04/08/24 08:16 Dose: 100 mg Documented By: LILLIAN Thiamine HCl 100 mg/ Sodium (Chloride) 101 mls @ 202 mls/hr IV DAILY [facility] Last Infusion: 04/08/24 09:24 Dose: Infused Documented By: LILLIAN Piperacillin Sod/Tazobactam (Sod 4.5 gm/ Sodium Chloride) 100 mls @ 200 mls/hr IV Q6H [facility] Last Infusion: 04/08/24 05:53 Dose: Infused Documented By: NATHANIEL Nutrition (Parenteral) (Parenteral Nutrition) 1,320 mls @ 55 mls/hr IV .Q24H [facility]; Protocol Stop: 04/08/24 20:59 Last Admin: 04/07/24 21:37 Dose: 55 mls/hr Documented By: NATHANIEL Nutrition (Parenteral) (Parenteral Nutrition) 2,040 mls @ 85 mls/hr IV .Q24H [facility]; Protocol Stop: 04/09/24 20:59 Lactulose (Lactulose 20 Gm/30 Ml Solution) 20 gm PO TID [facility] Last Admin: 04/07/24 17:39 Dose: Not Given Documented By: LILLIAN Non-Admin Reason: Patient Refused Magnesium Hydroxide (Milk Of Magnesia 30 Ml Oral.Susp) 30 ml PO DAILY PRN PRN Reason: Constipation Magnesium Oxide (Magnesium Oxide 400 Mg Tablet) 400 mg PO BIDPC [facility] Last Admin: 04/08/24 08:16 Dose: 400 mg Documented By: LILLIAN Multivitamins/Vitamin C (Multivitamin Tablet) 1 tab PO DAILY [facility] Last Admin: 04/08/24 08:16 Dose: 1 tab Documented By: LILLIAN Nicotine (Nicotine 21 Mg Patch.Td24) 21 mg TRANSDERMA DAILY [facility] Last Admin: 04/08/24 08:19 Dose: 21 mg Documented By: LILLIAN Omeprazole (Omeprazole 20 Mg Capsule.Dr) 20 mg PO DAILY [facility] Last Admin: 04/08/24 08:16 Dose: 20 mg Documented By: LILLIAN Ondansetron HCl (Ondansetron Hcl 4 Mg/2 Ml Vial) 4 mg IVPUSH Q6H PRN PRN Reason: Nausea and Vomiting Last Admin: 04/04/24 08:57 Dose: 4 mg Documented By: HARESH Paliperidone (Paliperidone Er 3 Mg Tab.Er.24) 3 mg PO DAILY [facility] Last Admin: 04/08/24 08:17 Dose: 3 mg Documented By: LILLIAN Pharmacy Consult (Consult Rx Parenteral Nutrition Ordering) 1 each MISCELLANE DAILY PRN PRN Reason: Consult order Rifaximin (Rifaximin 550 Mg Tablet) 550 mg PO BID [facility] Last Admin: 04/08/24 08:16 Dose: 550 mg Documented By: LILLIAN Sodium Chloride (0.9 % Sodium Chloride Flush 3 Ml Syringe) 3 ml IVFLUSH QSHIFT [facility] Last Admin: 04/08/24 08:21 Dose: 3 ml Documented By: LILLIAN Spironolactone (Spironolactone 25 Mg Tablet) 50 mg PO DAILY [facility]; Protocol Last Admin: 04/08/24 08:16 Dose: 50 mg Documented By: LILLIAN Zolpidem Tartrate (Zolpidem Tartrate 5 Mg Tablet) 5 mg PO BEDTIME PRN PRN Reason: Insomnia Last Admin: 04/07/24 21:49 Dose: 5 mg Documented By: NATHANIEL Labs 04/08/24 05:55 04/08/24 05:55 Labs: Laboratory Results - last 24 hr 04/07/24 04/08/24 11:34 05:55 MCV 94.7 MCH 33.4 H MCHC 35.3 RDW 13.6 Plt Count 135 L MPV 10.9 Immature Gran % (Auto) 0.3 Neut % (Auto) 55.8 Lymph % (Auto) 25.1 [place] % (Auto) 12.0 H Eos % (Auto) 6.0 H Baso % (Auto) 0.8 Lymph # (Auto) 1.0 L [place] # (Auto) 0.5 Eos # (Auto) 0.2 Baso # (Auto) 0.0 Abs Immat Gran (auto) 0.01 Absolute Neuts (auto) 2.2 Absolute Nucleated RBC 0.000 Nucleated RBC % (auto) 0.0 PT 28.5 H INR 2.4 H Anion Gap 9 L Estim Creat Clear Calc 252.1 Estimated GFR > 60 Random Glucose 109 Calcium 7.7 L Phosphorus 2.9 2.8 Magnesium 1.7 2.0 Total Bilirubin 3.3 H AST 55 H ALT 24 Alkaline Phosphatase 110 Total Protein 4.5 L Albumin 2.6 L Triglycerides 71 Assessment and Plan (1) Ileus: Status: Acute (2) Chronic cholecystitis due to cholelithiasis with choledocholithiasis: Status: Acute Plan 34M PMH alcohol dependence with alcoholic cirrhosis, mood disorder, cholelithiasis presented with altered mental status Abdominal pain and distention 2/2 Ileus having BMs , no nausea or vomiting CT abdomen showing Partial/intermittent distal small bowel obstruction. Hepatosplenomegaly and lymphadenopathy. Ascites, moderate volume. Probable cholelithiasis. Surgery team following , no intervention planned Paracentesis attempted but minimal fluid, not consistent with SBP KUB suggesting Ileus 04/07 kept NPO Start PPN 04/07 GI consulted , Rectal tube , Neostigmine 1st dose 04/07, to give an extra dose repeat KUB as needed Acute metabolic encephalopathy due to acute hepatic encephalopathy due to alcohol dependence with alcoholic cirrhosis improving Lactulose on hold, no BM yesterday continue rifaximin Goal 2-3 bowel movements per day Pneumonia CT scan showed bilateral basal infiltrates more on Right On Zosyn hallucinations improved seems to be out of proportion to level of hepatic encephalopathy at time, now much better with no reported hallucinations Psych appreciated started Invega Acute hypomagnesemia replacement given , monitor Hyperglycemia a1c - 4.3, Resolved Cholelithiasis Surgery appreciated, conservative care History of DVT Completed course of Eliquis, Eliquis discontinued Mood disorder Ativan p.r.n. DVT prophylaxis mechanical due to elevated INR Full code reason for continued hospitalization: surgical and GI evaluation for SBO pending starting diet and tolerating PO Quality Stroke Does the patient have a stroke diagnosis?: No VTE Prior VTE?: Yes VTE Risk Level:: Medical - moderate - high VTE Device Contraindication: N/A - Device Ordered VTE Drug Contraindication: Treatment Not Tolerated
[2024-04-08] MEDS: Glycopyrrolate 0.2 MG/ML VIAL 1 MG IVPUSH (15:12)
[2024-04-08] MEDS: Parenteral Nutrition 2,040 ML 85 ML IV (21:03)
[2024-04-08] MEDS: Zolpidem Tartrate 5 MG TABLET PO (23:55)
[2024-04-09] VITALS (11 sets, daily range): BP systolic 96–114; BP diastolic 54–73; PULSE 88–106; RESP 16–18; TEMP 36.1–36.9; O2SAT 92–98; BMI 24.7
[2024-04-09] MEDS: Piperacillin Sodium/Tazobactam 4.5 GM in 0.9 % Sodium Chloride 100 ML IV ×4 (05:01→23:35)
[2024-04-09 06:17] LABS: Albumin Level 2.4 g/dL (3.5-5.0); Anion Gap 10 (12-20); Blood Urea Nitrogen 4 mg/dL (9-16); Calcium 7.8 mg/dL (8.4-10.2); Carbon Dioxide 25 mmol/L (22-29); Chloride 106 mmol/L (96-108); Estimated Glomerular Filt Rate > 60; Glucose Random 130 mg/dL (60-115); Magnesium 1.8 mg/dL (1.6-2.6); Phosphorus 2.9 mg/dL (2.7-4.5); Potassium 3.5 mmol/L (3.3-5.1); Sodium 137 mmol/L (135-145)
[2024-04-09] MEDS: rifAXIMin 550 MG TABLET PO ×2 (08:55→20:16)
[2024-04-09] MEDS: Paliperidone ER 3 MG TAB.ER.24 PO (08:55)
[2024-04-09] MEDS: Lactulose 20 GM/30 ML SOLUTION PO ×3 (08:55→20:16)
[2024-04-09] MEDS: Omeprazole 20 MG CAPSULE.DR PO (08:55)
[2024-04-09] MEDS: Thiamine HCL 100 MG TABLET PO (08:56)
[2024-04-09] MEDS: Gabapentin 100 MG CAPSULE PO ×3 (08:56→20:16)
[2024-04-09] MEDS: Folic Acid 1 MG TABLET PO (08:56)
[2024-04-09] MEDS: Multivitamin TABLET 1 TAB PO (08:56)
[2024-04-09] MEDS: Nicotine 21 MG PATCH.TD24 TRANSDERMA (08:56)
[2024-04-09] MEDS: Magnesium Oxide 400 MG TABLET PO ×2 (08:56→18:06)
[2024-04-09] MEDS: Buprenorphine/Naloxone 2/0.5mg FILM 1 FILM SUBLINGUAL (08:56)
[2024-04-09] MEDS: 0.9 % Sodium Chloride Flush 3 ML SYRINGE IVFLUSH ×3 (09:05→23:40)
--- NOTE | 2024-04-09 09:46 | HO.PM.IMPN ---
Subjective Subjective Date of Service: 04/09/24 Interval History: alert and interactive still having significant abdominal distention rectal tube out plan for colonoscopy today no other events Review of Systems Review of Systems: Yes all other systems are reviewed and are negative Physical Exam Vital Signs: Vital Signs: Last Vital Signs Temp 98.2 F 04/09/24 09:40 Pulse 97 04/09/24 09:40 Resp 18 04/09/24 09:40 BP 108/61 04/09/24 09:40 Pulse Ox 92 04/09/24 09:40 O2 Del Method Nasal Cannula 04/09/24 09:40 O2 Flow Rate 2.0 04/09/24 09:40 BMI result Body Mass Index 24.7 Const: Other: Constitutional : Awake, interactive, not in distress Neck : Normal inspection, Supple Cardiovascular : RRR, no JVP, +1 lower extremity edema Respiratory : good bilateral air entry, no crackles, wheezes or rhonchi Gastrointestinal: soft, lax, no bowel sounds, generalized mild tenderness , no surgical signs, distended with tympanic percussion Skin : Warm, Dry Neurological : Alert & oriented x3, No focal deficit Objective Data Active Medications Acetaminophen (Acetaminophen 325 Mg Tablet) 650 mg PO Q6H PRN PRN Reason: Pain, Mild 1-3,fever,headache Last Admin: 04/05/24 08:56 Dose: 650 mg Documented By: LEO Atenolol (Atenolol 25 Mg Tablet) 25 mg PO DAILY [facility]; Protocol Last Admin: 04/08/24 08:16 Dose: 25 mg Documented By: LILLIAN Buprenorphine/Naloxone (Buprenorphine/Naloxone 2/0.5mg Film) 1 film SUBLINGUAL DAILY [facility] Last Admin: 04/09/24 08:56 Dose: 1 film Documented By: LEO Calcium Carbonate (Calcium Carbonate 750 Mg Tab.Chew) 750 mg PO Q4H PRN PRN Reason: Heartburn Last Admin: 04/04/24 16:51 Dose: 750 mg Documented By: HARESH Folic Acid (Folic Acid 1 Mg Tablet) 1 mg PO DAILY [facility] Last Admin: 04/09/24 08:56 Dose: 1 mg Documented By: LEO Furosemide (Furosemide 40 Mg Tablet) 40 mg PO DAILY [facility]; Protocol Last Admin: 04/07/24 08:36 Dose: 40 mg Documented By: LILLIAN Comments: Gabapentin (Gabapentin 100 Mg Capsule) 100 mg PO TID [facility] Last Admin: 04/09/24 08:56 Dose: 100 mg Documented By: LEO Piperacillin Sod/Tazobactam (Sod 4.5 gm/ Sodium Chloride) 100 mls @ 200 mls/hr IV Q6H [facility] Last Infusion: 04/09/24 05:31 Dose: Infused Documented By: RAYMOND Nutrition (Parenteral) (Parenteral Nutrition) 2,040 mls @ 85 mls/hr IV .Q24H [facility]; Protocol Stop: 04/09/24 20:59 Last Admin: 04/08/24 21:03 Dose: 85 mls/hr Documented By: RAYMOND Nutrition (Parenteral) (Parenteral Nutrition) 2,040 mls @ 85 mls/hr IV .Q24H [facility]; Protocol Stop: 04/10/24 20:59 Lactulose (Lactulose 20 Gm/30 Ml Solution) 20 gm PO TID [facility] Last Admin: 04/09/24 08:55 Dose: 20 gm Documented By: LEO Magnesium Hydroxide (Milk Of Magnesia 30 Ml Oral.Susp) 30 ml PO DAILY PRN PRN Reason: Constipation Magnesium Oxide (Magnesium Oxide 400 Mg Tablet) 400 mg PO BIDPC [facility] Last Admin: 04/09/24 08:56 Dose: 400 mg Documented By: LEO Multivitamins/Vitamin C (Multivitamin Tablet) 1 tab PO DAILY [facility] Last Admin: 04/09/24 08:56 Dose: 1 tab Documented By: LEO Nicotine (Nicotine 21 Mg Patch.Td24) 21 mg TRANSDERMA DAILY [facility] Last Admin: 04/09/24 08:56 Dose: 21 mg Documented By: LEO Omeprazole (Omeprazole 20 Mg Capsule.Dr) 20 mg PO DAILY [facility] Last Admin: 04/09/24 08:55 Dose: 20 mg Documented By: LEO Ondansetron HCl (Ondansetron Hcl 4 Mg/2 Ml Vial) 4 mg IVPUSH Q6H PRN PRN Reason: Nausea and Vomiting Last Admin: 04/04/24 08:57 Dose: 4 mg Documented By: GRAZIC Paliperidone (Paliperidone Er 3 Mg Tab.Er.24) 3 mg PO DAILY [facility] Last Admin: 04/09/24 08:55 Dose: 3 mg Documented By: LEO Pharmacy Consult (Consult Rx Parenteral Nutrition Ordering) 1 each MISCELLANE DAILY PRN PRN Reason: Consult order Rifaximin (Rifaximin 550 Mg Tablet) 550 mg PO BID [facility] Last Admin: 04/09/24 08:55 Dose: 550 mg Documented By: LEO Sodium Chloride (0.9 % Sodium Chloride Flush 3 Ml Syringe) 3 ml IVFLUSH QSHIFT [facility] Last Admin: 04/09/24 09:05 Dose: 3 ml Documented By: LEO Spironolactone (Spironolactone 25 Mg Tablet) 50 mg PO DAILY [facility]; Protocol Last Admin: 04/08/24 08:16 Dose: 50 mg Documented By: LILLIAN Thiamine HCl (Thiamine Hcl 100 Mg Tablet) 100 mg PO DAILY [facility] Last Admin: 04/09/24 08:56 Dose: 100 mg Documented By: LEO Zolpidem Tartrate (Zolpidem Tartrate 5 Mg Tablet) 5 mg PO BEDTIME PRN PRN Reason: Insomnia Last Admin: 04/08/24 23:55 Dose: 5 mg Documented By: RAYMOND Labs 04/08/24 05:55 04/09/24 05:26 Labs: Laboratory Results - last 24 hr 04/09/24 05:26 Anion Gap 10 L Estim Creat Clear Calc 263.0 Estimated GFR > 60 Random Glucose 130 H Calcium 7.8 L Phosphorus 2.9 Magnesium 1.8 Albumin 2.4 L Assessment and Plan (1) Ileus: Status: Acute (2) Cirrhosis: Status: Acute Plan 34M PMH alcohol dependence with alcoholic cirrhosis, mood disorder, cholelithiasis presented with altered mental status Abdominal pain and distention 2/2 Ileus having less BMs , no nausea or vomiting CT abdomen showing Partial/intermittent distal small bowel obstruction. Hepatosplenomegaly and lymphadenopathy. Ascites, moderate volume. Probable cholelithiasis. Surgery team following , no intervention planned Paracentesis attempted but minimal fluid, not consistent with SBP KUB suggesting Ileus 04/07 Started PPN 04/07 GI consulted , Rectal tube , Neostigmine 1st dose 04/07, and 5mg on 04/08 repeat KUB as needed kept NPO for colonoscopy today Acute metabolic encephalopathy due to acute hepatic encephalopathy due to alcohol dependence with alcoholic cirrhosis improving Lactulose to restart, no BM yesterday continue rifaximin Goal 2-3 bowel movements per day Pneumonia CT scan showed bilateral basal infiltrates more on Right On Zosyn staret 04/03 hallucinations improved seems to be out of proportion to level of hepatic encephalopathy at time, now much better with no reported hallucinations Psych appreciated started Invega Acute hypomagnesemia replacement given , monitor Hyperglycemia a1c - 4.3, Resolved Cholelithiasis Surgery appreciated, conservative care History of DVT Completed course of Eliquis, Eliquis discontinued Mood disorder Ativan p.r.n. DVT prophylaxis mechanical due to elevated INR Full code reason for continued hospitalization: GI evaluation for SBO pending colonoscopy , starting diet and tolerating PO Quality Stroke Does the patient have a stroke diagnosis?: No VTE Prior VTE?: Yes VTE Risk Level:: Medical - moderate - high VTE Device Contraindication: N/A - Device Ordered VTE Drug Contraindication: Treatment Not Tolerated
--- NOTE | 2024-04-09 10:43 | MHC.CLN ---
NUTRITION PATIENT WITH ILEUS AND NPO FOR COLONOSCOPY TODAY. STARTED PPN 04/07. REVIEWED LABS. COMMUNICATED WITH PHARMACY. RECOMMEND ADVANCE PPN TODAY TO 85 ML PER HOUR PLUS 90 G LIPIDS. PROVIDES 1940 TOTAL KCALS (22.2 KCALS/KG), 204 G DEXTROSE, 87 G PROTEIN (1 G/KG). REPLETE LYTES NEEDED. FOLLOW FOR PPN TOLERANCE AND ADVANCEMENT. SEE CLINICAL NUTRITION ASSESSMENT 04/09/24.
[2024-04-09] MEDS: atenoloL 25 MG TABLET PO (11:33)
[2024-04-09] MEDS: Spironolactone 25 MG TABLET 50 MG PO (11:33)
--- NOTE | 2024-04-09 13:43 | PM.EVENT ---
Event Note Date of Service: 04/09/24 Event Note: Pt has continued abdominal distension despite Neostigmine x 2. Plan to proceed with colonoscopy for decompression - scheduled for today Time Spent With Patient Time: Total time managing care of this patient today ____ minutes.
--- NOTE | 2024-04-09 14:01 | MHC.SHP ---
Pre-Procedural Eval Section A - 24 Hr Update-Section A only Date of Service: 04/09/24 The patient is an INPATIENT: Yes Changes since office visit: Yes New Medical Problems, Yes Changes in Medication and Yes Patient answered all questions; No Cold of Flu in the past 2 weeks The patient has been examined within 24 hours of the surgical procedure. The History & Physical has been completed within 30 days and I have reviewed it.: Yes Section B - Complete if H&P > 30 days Chief Complaint: hepatic encephalopathy Allergies: Allergies Allergy/AdvReac Type Severity Reaction Status Date / Time No Known Allergies Allergy Verified 04/01/24 04:17 Plan Diagnosis/Plan: Unchanged I have reviewed the history and physical and performed a pertinent physical examination on my patient. No changes have occurred unless specified. Time Spent With Patient Time: Total time managing care of this patient today ____ minutes.
--- NOTE | 2024-04-09 14:10 | P.CONAN_ITS ---
[facility] Active Problems Active Problems: All Active Problems Ileus (Acute) Cholelithiasis (Acute) Acute hepatic encephalopathy (Acute) Chronic cholecystitis due to cholelithiasis with choledocholithiasis (Acute) Postprandial abdominal pain in right upper quadrant (Acute) Peripancreatic fluid collection (Acute) Coagulopathy (Acute) Hepatic encephalopathy (Acute) Alcohol use disorder (Acute) Cirrhosis (Acute) Acute alcoholic liver disease (Acute) Hyperammonemia (Acute) Conjugated hyperbilirubinemia (Acute) Liver injury (Acute) Alcoholic hepatitis (Acute) Hemochromatosis (Acute) Hypokalemia (Acute) Superficial thrombophlebitis of both legs (Acute) Superficial thrombophlebitis of both legs (Acute) Thrombosis of left saphenous vein (Acute) Diarrhea (Acute) Neuropathy (Acute) Sensory ataxia (Acute) Hypertension, essential (Acute) Encounter for general adult medical examination with abnormal findings (Acute) Alcoholic peripheral neuropathy (Acute) Multiple fractures of ribs, right side, sequela (Acute) Chest injury (Acute) Contusion of rib on right side (Acute) Peripheral neuropathy (Acute) Recurrent falls (Acute) Elevated blood pressure reading (Acute) Fall (Acute) Alcoholism (Acute) Paresthesia of both feet (Acute) Hypomagnesemia (Acute) Thrombocytopenia (Acute) Leucopenia (Acute) Alcohol withdrawal (Acute) Transaminitis (Acute) Status post hardware removal (Acute) Muscle spasm (Acute) Sore throat (viral) (Acute) Upper respiratory infection, viral (Acute) COVID-19 (Acute) Edema of both feet (Acute) Bilateral swelling of feet (Acute) Hospital discharge follow-up (Acute) Neuropathy (Acute) Elevated ferritin (Acute) LFT elevation (Acute) Major depression, recurrent (Acute) Anxiety, generalized (Acute) Alcoholism (Acute) Hemochromatosis (Acute) Left foot pain (Acute) Dental infection (Acute) Fracture of clavicle, left, closed (Acute) Fracture of left clavicle with routine healing (Acute) Pain of left clavicle (Acute) Alcohol abuse (Acute) Foot pain, bilateral (Acute) Abnormal complete blood count (Acute) Abnormal liver enzymes (Acute) Past Medical History Medical History Postprandial abdominal pain in right upper quadrant COVID Cirrhosis Neuropathy Sensory ataxia Clavicle fracture Alcohol abuse Foot pain, bilateral Abnormal complete blood count Abnormal liver enzymes No known health problems Functional capacity: independent ambulation Family History Family History Paternal Grandfather Cancer Paternal Grandmother Cancer Family history of problems with anesthesia: No Surgical History Surgical History Hx of skin graft History of Problems with Anesthesia: No Social History Social History Household Members: Significant Other Housing: Condominium Do you presently have visiting nurse or other home services: No Alcohol intake: former Comment: patient refusing bed alarm, steady on feet, high fall risk per CIWA tracya Patient Tobacco Use Status: Former Tobacco user Years Smoked: 10 e-Cigarette/Vaping Use: Currently Using Substance Use Type: Marijuana service: No 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 status: 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 Meds Allergies Allergy/AdvReac Type Severity Reaction Status Date / Time No Known Allergies Allergy Verified 04/01/24 04:17 Active Medications: Current Medications Acetaminophen (Acetaminophen 325 Mg Tablet) 650 mg PO Q6H PRN PRN Reason: Pain, Mild 1-3,fever,headache Last Admin: 04/05/24 08:56 Dose: 650 mg Atenolol (Atenolol 25 Mg Tablet) 25 mg PO DAILY [facility]; Protocol Last Admin: 04/09/24 11:33 Dose: 25 mg Buprenorphine/Naloxone (Buprenorphine/Naloxone 2/0.5mg Film) 1 film SUBLINGUAL DAILY [facility] Last Admin: 04/09/24 08:56 Dose: 1 film Calcium Carbonate (Calcium Carbonate 750 Mg Tab.Chew) 750 mg PO Q4H PRN PRN Reason: Heartburn Last Admin: 04/04/24 16:51 Dose: 750 mg Folic Acid (Folic Acid 1 Mg Tablet) 1 mg PO DAILY [facility] Last Admin: 04/09/24 08:56 Dose: 1 mg Furosemide (Furosemide 40 Mg Tablet) 40 mg PO DAILY [facility]; Protocol Last Admin: 04/07/24 08:36 Dose: 40 mg Gabapentin (Gabapentin 100 Mg Capsule) 100 mg PO TID [facility] Last Admin: 04/09/24 08:56 Dose: 100 mg Piperacillin Sod/Tazobactam (Sod 4.5 gm/ Sodium Chloride) 100 mls @ 200 mls/hr IV Q6H [facility] Last Infusion: 04/09/24 12:15 Dose: Infused Nutrition (Parenteral) (Parenteral Nutrition) 2,040 mls @ 85 mls/hr IV .Q24H [facility]; Protocol Stop: 04/09/24 20:59 Last Infusion: 04/09/24 12:16 Dose: 85 mls/hr Nutrition (Parenteral) (Parenteral Nutrition) 2,040 mls @ 85 mls/hr IV .Q24H [facility]; Protocol Stop: 04/10/24 20:59 Lactulose (Lactulose 20 Gm/30 Ml Solution) 20 gm PO TID [facility] Last Admin: 04/09/24 08:55 Dose: 20 gm Magnesium Hydroxide (Milk Of Magnesia 30 Ml Oral.Susp) 30 ml PO DAILY PRN PRN Reason: Constipation Magnesium Oxide (Magnesium Oxide 400 Mg Tablet) 400 mg PO BIDPC [facility] Last Admin: 04/09/24 08:56 Dose: 400 mg Multivitamins/Vitamin C (Multivitamin Tablet) 1 tab PO DAILY [facility] Last Admin: 04/09/24 08:56 Dose: 1 tab Nicotine (Nicotine 21 Mg Patch.Td24) 21 mg TRANSDERMA DAILY [facility] Last Admin: 04/09/24 08:56 Dose: 21 mg Omeprazole (Omeprazole 20 Mg Capsule.Dr) 20 mg PO DAILY [facility] Last Admin: 04/09/24 08:55 Dose: 20 mg Ondansetron HCl (Ondansetron Hcl 4 Mg/2 Ml Vial) 4 mg IVPUSH Q6H PRN PRN Reason: Nausea and Vomiting Last Admin: 04/04/24 08:57 Dose: 4 mg Paliperidone (Paliperidone Er 3 Mg Tab.Er.24) 3 mg PO DAILY [facility] Last Admin: 04/09/24 08:55 Dose: 3 mg Pharmacy Consult (Consult Rx Parenteral Nutrition Ordering) 1 each MISCELLANE DAILY PRN PRN Reason: Consult order Rifaximin (Rifaximin 550 Mg Tablet) 550 mg PO BID [facility] Last Admin: 04/09/24 08:55 Dose: 550 mg Sodium Chloride (0.9 % Sodium Chloride Flush 3 Ml Syringe) 3 ml IVFLUSH QSHIFT [facility] Last Admin: 04/09/24 09:05 Dose: 3 ml Spironolactone (Spironolactone 25 Mg Tablet) 50 mg PO DAILY [facility]; Protocol Last Admin: 04/09/24 11:33 Dose: 50 mg Thiamine HCl (Thiamine Hcl 100 Mg Tablet) 100 mg PO DAILY [facility] Last Admin: 04/09/24 08:56 Dose: 100 mg Zolpidem Tartrate (Zolpidem Tartrate 5 Mg Tablet) 5 mg PO BEDTIME PRN PRN Reason: Insomnia Last Admin: 04/08/24 23:55 Dose: 5 mg Home Medications ?Medication ?Instructions ?Recorded ?Confirmed ?Last Taken ?Type buprenorphine 2 mg-naloxone 0.5 mg 1 film sublingual DAILY 12/31/21 04/01/24 03/31/24 History sublingual film bisacodyl 5 mg tablet,delayed 10 mg PO BEDTIME PRN Constipation 04/01/24 04/01/24 Unknown History release (Dulcolax (bisacodyl)) Exam Height,Weight and Vital Signs: Height 6 ft 2 in Weight 87.3 kg Last Vital Signs Temp 97.9 F 04/09/24 13:57 Pulse 106 H 04/09/24 13:57 Resp 18 04/09/24 13:57 BP 108/67 04/09/24 13:57 Pulse Ox 92 04/09/24 13:57 O2 Del Method Room Air 04/09/24 13:57 O2 Flow Rate 2.0 04/09/24 11:29 Pertinent Lab Results Pertinent Lab Results: Laboratory Tests 03/31/24 04/02/24 04/03/24 18:26 05:15 05:34 WBC 7.8 7.8 RBC 4.18 L 4.05 L Hgb 14.0 13.5 L Hct 39.0 L 37.7 L MCV 93.3 93.1 MCH 33.5 H 33.3 H MCHC 35.9 35.8 RDW 13.2 13.2 Plt Count 154 L D 135 L MPV 9.3 L 10.2 Immature Gran % (Auto) Neut % (Auto) Lymph % (Auto) Latimer % (Auto) Eos % (Auto) Baso % (Auto) Lymph # (Auto) Latimer # (Auto) Eos # (Auto) Baso # (Auto) Abs Immat Gran (auto) Absolute Neuts (auto) Absolute Nucleated RBC 0.000 0.000 Nucleated RBC % (auto) 0.0 0.0 PT INR Sodium 139 138 Potassium 3.3 3.0 L Chloride 107 105 Carbon Dioxide 26 25 Anion Gap 9 L 11 L BUN 3 L 3 L Creatinine 0.54 0.52 Estim Creat Clear Calc 224.1 232.7 Estimated GFR > 60 > 60 Random Glucose 123 H 130 H Estimat Average Glucose 85 Hemoglobin A1c % 4.6 Calcium 8.5 8.8 Phosphorus Magnesium 1.8 Total Bilirubin 4.3 H Direct Bilirubin 2.6 H AST 96 H ALT 47 H Alkaline Phosphatase 141 H Ammonia 49 81 H Troponin I High Sens C-Reactive Protein Total Protein 5.5 L Albumin 3.1 L Triglycerides 04/03/24 04/05/24 04/06/24 14:05 06:06 05:56 WBC 6.9 RBC 3.99 L Hgb 13.4 L Hct 37.3 L MCV 93.5 MCH 33.6 H MCHC 35.9 RDW 13.5 Plt Count 152 L MPV 10.4 Immature Gran % (Auto) 1.0 H Neut % (Auto) 67.5 Lymph % (Auto) 16.5 L Latimer % (Auto) 10.2 Eos % (Auto) 4.4 H Baso % (Auto) 0.4 Lymph # (Auto) 1.1 L Latimer # (Auto) 0.7 Eos # (Auto) 0.3 Baso # (Auto) 0.0 Abs Immat Gran (auto) 0.07 H Absolute Neuts (auto) 4.6 Absolute Nucleated RBC 0.000 Nucleated RBC % (auto) 0.0 PT 28.8 H D INR 2.5 H Sodium 139 139 Potassium 3.4 3.5 Chloride 105 106 Carbon Dioxide 25 27 Anion Gap 12 10 L BUN 4 L 5 L Creatinine 0.55 0.54 Estim Creat Clear Calc 220.0 224.1 Estimated GFR > 60 > 60 Random Glucose 115 105 Estimat Average Glucose Hemoglobin A1c % Calcium 8.3 L 7.9 L Phosphorus Magnesium 1.4 L* 1.5 L Total Bilirubin 3.2 H Direct Bilirubin 2.1 H AST 57 H ALT 35 Alkaline Phosphatase 129 H Ammonia Troponin I High Sens < 2.7 C-Reactive Protein 3.29 H Total Protein 5.2 L Albumin 3.0 L Triglycerides 04/07/24 04/07/24 04/08/24 06:10 11:34 05:55 WBC 4.9 4.0 L RBC 3.84 L 3.59 L Hgb 12.7 L 12.0 L Hct 36.7 L 34.0 L MCV 95.6 94.7 MCH 33.1 H 33.4 H MCHC 34.6 35.3 RDW 13.6 13.6 Plt Count 141 L 135 L MPV 10.7 10.9 Immature Gran % (Auto) 0.4 0.3 Neut % (Auto) 58.1 55.8 Lymph % (Auto) 26.8 25.1 Latimer % (Auto) 9.2 12.0 H Eos % (Auto) 4.9 H 6.0 H Baso % (Auto) 0.6 0.8 Lymph # (Auto) 1.3 1.0 L Latimer # (Auto) 0.5 0.5 Eos # (Auto) 0.2 0.2 Baso # (Auto) 0.0 0.0 Abs Immat Gran (auto) 0.02 0.01 Absolute Neuts (auto) 2.8 2.2 Absolute Nucleated RBC 0.000 0.000 Nucleated RBC % (auto) 0.0 0.0 PT 28.5 H INR 2.4 H Sodium 138 139 Potassium 3.2 L 3.5 Chloride 104 106 Carbon Dioxide 28 28 Anion Gap 9 L 9 L BUN 4 L 3 L Creatinine 0.56 0.48 L Estim Creat Clear Calc 216.1 252.1 Estimated GFR > 60 > 60 Random Glucose 101 109 Estimat Average Glucose Hemoglobin A1c % Calcium 7.3 L D 7.7 L Phosphorus 2.9 2.8 Magnesium 1.7 2.0 Total Bilirubin 3.5 H 3.3 H Direct Bilirubin 2.1 H AST 57 H 55 H ALT 20 24 Alkaline Phosphatase 130 H 110 Ammonia Troponin I High Sens C-Reactive Protein Total Protein 5.0 L 4.5 L Albumin 2.9 L 2.6 L Triglycerides 71 04/09/24 05:26 WBC RBC Hgb Hct MCV MCH MCHC RDW Plt Count MPV Immature Gran % (Auto) Neut % (Auto) Lymph % (Auto) Latimer % (Auto) Eos % (Auto) Baso % (Auto) Lymph # (Auto) Latimer # (Auto) Eos # (Auto) Baso # (Auto) Abs Immat Gran (auto) Absolute Neuts (auto) Absolute Nucleated RBC Nucleated RBC % (auto) PT INR Sodium 137 Potassium 3.5 Chloride 106 Carbon Dioxide 25 Anion Gap 10 L BUN 4 L Creatinine 0.46 L Estim Creat Clear Calc 263.0 Estimated GFR > 60 Random Glucose 130 H Estimat Average Glucose Hemoglobin A1c % Calcium 7.8 L Phosphorus 2.9 Magnesium 1.8 Total Bilirubin Direct Bilirubin AST ALT Alkaline Phosphatase Ammonia Troponin I High Sens C-Reactive Protein Total Protein Albumin 2.4 L Triglycerides Airway Mallampati Class: II TM Dist: >3cm Neck ROM: Full Heart: RRR Lungs: CTA Assessment and Plan Assessment Anesthesia Assessment: Anesthesia Plan Discussed, Smoking Cess. Discussed and Chart Reviewed Final Anesthetic Review Family History of Problems with Anesthesia: No History of Problems with Anesthesia: No NPO: Yes ASA Class: III and Emergency Final Preanesthetic Review: Meds/Allgs Chart Reviewed, Consent Obtained/Reviewed and Anes Risks/Benef Reviewed Patient Risk: Intermediate Procedure Risk: Low Anesthetic Plan Anesthetic Plan: MAC: Disposition: Standard PACU
--- NOTE | 2024-04-09 14:17 | MHC.CM.PN ---
Per MD rounds no dc today. Patient is scheduled for a Colonoscopy today. A clinical update has been sent to [facility]. STR referrals expanded west last week. All facilities have answered. No bed offers have been received. The bed search has been extended to the [place] area. CM will follow.
--- NOTE | 2024-04-09 14:47 | HO.OPN-COLON ---
Colonoscopy Operative Note Operative Note Date of Service: 04/09/24 Narrative: COLONOSCOPY TILL PROXIMAL TRANSVERSE COLON WITH COLON DECOMPRESSION Pre-op diagnosis: Colon pseudo-obstruction. Post-op diagnosis:? Colon polyps, hemorrhoids Endoscopist:? Yemi De Paz MD Anesthesia:?MAC Consent: Indications for the procedure and potential complications of bleeding, perforation, reaction to medications and missed diagnosis were discussed with the patient and informed consent was obtained. Instrument: Olympus PCF H 190 L variable stiffness pediatric colonoscope Monitoring: Vital signs and clinical assessment, intermittent blood pressure monitoring, continuous EKG monitoring, Pulse oximetry and Carbon Dioxide monitoring were done throughout the procedure. Please see anesthesia flowsheet. Procedure: The patient was placed in the left lateral decubitis position and pre-procedure medications were administered. After a digital rectal examination of the ano-rectum, the video colonoscope was inserted into the rectum and advanced through the colon to the proximal transverse colon. The colonoscope was slowly withdrawn and colon was suctioned and decompresed during withdrwl Findingss and interventions are described below. Procedure Difficulty: without difficulty Findings: Transverse Colon: Liquid and semisolid stool - suctioned Descending Colon: Liquid and semisolid stool - suctioned Sigmoid Colon: A 2.5 cms polyp at 40 cms - not removed since colon was not prepped and INR is 2.5 Rectum: Normal Ano-rectum: Moderate internal hemorrhoids Colon preparation: NA Impression and Post Procedure Diagnosis: Colonoscopy Findings: One large polyp detected in the sigmoid colon - not removed since colon was not prepped and INR is 2.5 Moderate hemorrhoids on antegrade exam. Plan: Repeat Colonoscopy in 6 to 8 weeks with colon prep for polyp removal Pt will be scheduled for a FU appt in the GI clinic Above findings were reviewed with the patient.
[2024-04-09] MEDS: Zolpidem Tartrate 5 MG TABLET PO (20:18)
[2024-04-09] MEDS: Parenteral Nutrition 2,040 ML 85 ML IV (20:32)
[2024-04-10 03:05] VITALS: BP 116/60; PULSE 108; RESP 18; TEMP 36.6; O2SAT 93
[2024-04-10] MEDS: Piperacillin Sodium/Tazobactam 4.5 GM in 0.9 % Sodium Chloride 100 ML IV ×2 (05:34→11:22)
[2024-04-10 05:48] LABS: Albumin Level 2.4 g/dL (3.5-5.0); Anion Gap 10 (12-20); Blood Urea Nitrogen 7 mg/dL (9-16); Calcium 7.8 mg/dL (8.4-10.2); Carbon Dioxide 22 mmol/L (22-29); Chloride 108 mmol/L (96-108); Creatinine Clr Calc Pharmacy 257.4; Estimated Glomerular Filt Rate > 60; Glucose Random 144 mg/dL (60-115); Magnesium 1.8 mg/dL (1.6-2.6); Phosphorus 2.6 mg/dL (2.7-4.5); Potassium 3.8 mmol/L (3.3-5.1); Sodium 136 mmol/L (135-145)
[2024-04-10 07:27] VITALS: BP 135/69; PULSE 102; RESP 16; TEMP 37.3; O2SAT 92
[2024-04-10] MEDS: Magnesium Oxide 400 MG TABLET PO ×2 (08:23→17:48)
[2024-04-10] MEDS: Thiamine HCL 100 MG TABLET PO (08:23)
[2024-04-10] MEDS: Spironolactone 25 MG TABLET 50 MG PO (08:23)
[2024-04-10] MEDS: Lactulose 20 GM/30 ML SOLUTION PO ×3 (08:23→20:47)
[2024-04-10] MEDS: Omeprazole 20 MG CAPSULE.DR PO (08:23)
[2024-04-10] MEDS: rifAXIMin 550 MG TABLET PO ×2 (08:23→20:48)
[2024-04-10] MEDS: Nicotine 21 MG PATCH.TD24 TRANSDERMA (08:23)
[2024-04-10] MEDS: Paliperidone ER 3 MG TAB.ER.24 PO (08:23)
[2024-04-10] MEDS: atenoloL 25 MG TABLET PO (08:23)
[2024-04-10] MEDS: Gabapentin 100 MG CAPSULE PO ×3 (08:23→20:48)
[2024-04-10] MEDS: Multivitamin TABLET 1 TAB PO (08:23)
[2024-04-10] MEDS: Folic Acid 1 MG TABLET PO (08:23)
[2024-04-10] MEDS: Buprenorphine/Naloxone 2/0.5mg FILM 1 FILM SUBLINGUAL (08:35)
[2024-04-10] MEDS: 0.9 % Sodium Chloride Flush 3 ML SYRINGE IVFLUSH ×2 (08:36→20:59)
--- NOTE | 2024-04-10 09:58 | HO.POSTANES ---
Post Anesthesia Evaluation Post Anesthesia Evaluation Date of Service: 04/10/24 Vital Signs: Vital Signs Temp Pulse Resp BP Pulse Ox O2 Del Method 04/10/24 07:27 99.1 F 102 H 16 135/69 92 Room Air 04/10/24 03:05 97.8 F 108 H 18 116/60 93 Room Air Anesthesia: Monitored Mental Status: Awake Pain Control: Satisfactory Nausea/Vomiting: None Hydration: Adequate Anesthesia-Related Issues: No Anes. Related Issues
--- NOTE | 2024-04-10 11:00 | MHC.CLN ---
F/U PATIENT S/P COLONOSCOPY DIET ADVANCED TO C/L WITH SUPPLEMENT REVIEWED LABS. COMMUNICATED WITH PHARMACY. CONTINUE PPN AT 85 ML PER HOUR PLUS 90 G LIPIDS PROVIDES 1940 TOTAL KCALS (22.2 KCALS/KG), 204 G DEXTROSE, 87 G PROTEIN (1 G/KG) REPLETE LYTES NEEDED
--- NOTE | 2024-04-10 11:32 | HO.WOUND ---
Wound Consult: Initial 34yr old?[place] [facility] [place] See progress notes and H&P for detailed history.? Wound consult placed for buttock for redness.? Patient agreeable to assessment and photo documentation.? Patient buttock assessed and reveals intact pink blancahble tissue. No concern for moisture or pressure at this time. Of note the patient was moving and able to shift himself in bed - mobility did not appear to be an issues. He denies incontinence and he is noted to be wearing home pajama pants that are dry. No topical interventions are needed at this time should moisture become a problem recommend Barrier cream application. The patient was educated on the importance of position changes and relieving pressure from his heels and buttock area with turns and repositions - he reports understanding and reports he plans to walk again later today. Re-consult wound care Nurse for wound deterioration or wound changes.
--- NOTE | 2024-04-10 11:51 | P.PNIM_ITS ---
Subjective Subjective Date of Service: 04/10/24 Interval History: alert and interactive improved distention and bowel movement after colonoscopy tolerating diet no other events Review of Systems Review of Systems: Yes all other systems are reviewed and are negative Physical Exam 2 Vital Signs: Vital Signs: Last Vital Signs Temp 99.1 F 04/10/24 07:27 Pulse 102 H 04/10/24 07:27 Resp 16 04/10/24 07:27 BP 135/69 04/10/24 07:27 Pulse Ox 92 04/10/24 07:27 O2 Del Method Room Air 04/10/24 07:27 O2 Flow Rate 2.0 04/09/24 11:29 BMI result Body Mass Index 24.7 Const: Other: Constitutional : Awake, interactive, not in distress Neck : Normal inspection, Supple Cardiovascular : RRR, no JVP, trace lower extremity edema Respiratory : good bilateral air entry, no crackles, wheezes or rhonchi Gastrointestinal: soft, lax, improved bowel sounds, no significant tenderness , no surgical signs, less distended Skin : Warm, Dry Neurological : Alert & oriented x3, No focal deficit Objective Data Active Medications Acetaminophen (Acetaminophen 325 Mg Tablet) 650 mg PO Q6H PRN PRN Reason: Pain, Mild 1-3,fever,headache Last Admin: 04/05/24 08:56 Dose: 650 mg Documented By: LEO Atenolol (Atenolol 25 Mg Tablet) 25 mg PO DAILY [facility]; Protocol Last Admin: 04/10/24 08:23 Dose: 25 mg Documented By: LEO Buprenorphine/Naloxone (Buprenorphine/Naloxone 2/0.5mg Film) 1 film SUBLINGUAL DAILY [facility] Last Admin: 04/10/24 08:35 Dose: 1 film Documented By: LEO Calcium Carbonate (Calcium Carbonate 750 Mg Tab.Chew) 750 mg PO Q4H PRN PRN Reason: Heartburn Last Admin: 04/04/24 16:51 Dose: 750 mg Documented By: HARESH Folic Acid (Folic Acid 1 Mg Tablet) 1 mg PO DAILY [facility] Last Admin: 04/10/24 08:23 Dose: 1 mg Documented By: LEO Furosemide (Furosemide 40 Mg Tablet) 40 mg PO DAILY [facility]; Protocol Last Admin: 04/07/24 08:36 Dose: 40 mg Documented By: LILLIAN Comments: Gabapentin (Gabapentin 100 Mg Capsule) 100 mg PO TID [facility] Last Admin: 04/10/24 08:23 Dose: 100 mg Documented By: LEO Piperacillin Sod/Tazobactam (Sod 4.5 gm/ Sodium Chloride) 100 mls @ 200 mls/hr IV Q6H [facility] Last Admin: 04/10/24 11:22 Dose: 200 mls/hr Documented By: LEO Nutrition (Parenteral) (Parenteral Nutrition) 2,040 mls @ 85 mls/hr IV .Q24H [facility]; Protocol Stop: 04/10/24 20:59 Last Infusion: 04/10/24 11:27 Dose: 0 mls/hr Documented By: LEO Nutrition (Parenteral) (Parenteral Nutrition) 2,040 mls @ 85 mls/hr IV .Q24H [facility]; Protocol Stop: 04/11/24 20:59 Lactulose (Lactulose 20 Gm/30 Ml Solution) 20 gm PO TID [facility] Last Admin: 04/10/24 08:23 Dose: 20 gm Documented By: LEO Magnesium Hydroxide (Milk Of Magnesia 30 Ml Oral.Susp) 30 ml PO DAILY PRN PRN Reason: Constipation Magnesium Oxide (Magnesium Oxide 400 Mg Tablet) 400 mg PO BIDPC [facility] Last Admin: 04/10/24 08:23 Dose: 400 mg Documented By: LEO Multivitamins/Vitamin C (Multivitamin Tablet) 1 tab PO DAILY [facility] Last Admin: 04/10/24 08:23 Dose: 1 tab Documented By: LEO Naloxone HCl (Naloxone Hcl 0.4 Mg/Ml Vial) 0.04 mg IVPUSH Q5M PRN PRN Reason: Excessive sedation or RR < 8 Nicotine (Nicotine 21 Mg Patch.Td24) 21 mg TRANSDERMA DAILY [facility] Last Admin: 04/10/24 08:23 Dose: 21 mg Documented By: LEO Omeprazole (Omeprazole 20 Mg Capsule.Dr) 20 mg PO DAILY [facility] Last Admin: 04/10/24 08:23 Dose: 20 mg Documented By: LEO Ondansetron HCl (Ondansetron Hcl 4 Mg/2 Ml Vial) 4 mg IVPUSH Q6H PRN PRN Reason: Nausea and Vomiting Last Admin: 04/04/24 08:57 Dose: 4 mg Documented By: HARESH Paliperidone (Paliperidone Er 3 Mg Tab.Er.24) 3 mg PO DAILY [facility] Last Admin: 04/10/24 08:23 Dose: 3 mg Documented By: LEO Pharmacy Consult (Consult Rx Parenteral Nutrition Ordering) 1 each MISCELLANE DAILY PRN PRN Reason: Consult order Rifaximin (Rifaximin 550 Mg Tablet) 550 mg PO BID [facility] Last Admin: 04/10/24 08:23 Dose: 550 mg Documented By: LEO Sodium Chloride (0.9 % Sodium Chloride Flush 3 Ml Syringe) 3 ml IVFLUSH QSHIFT [facility] Last Admin: 04/10/24 08:36 Dose: 3 ml Documented By: LEO Spironolactone (Spironolactone 25 Mg Tablet) 50 mg PO DAILY [facility]; Protocol Last Admin: 04/10/24 08:23 Dose: 50 mg Documented By: LEO Thiamine HCl (Thiamine Hcl 100 Mg Tablet) 100 mg PO DAILY [facility] Last Admin: 04/10/24 08:23 Dose: 100 mg Documented By: LEO Zolpidem Tartrate (Zolpidem Tartrate 5 Mg Tablet) 5 mg PO BEDTIME PRN PRN Reason: Insomnia Last Admin: 04/09/24 20:18 Dose: 5 mg Documented By: BETHLANDV Labs 04/08/24 05:55 04/10/24 05:11 Labs: Laboratory Results - last 24 hr 04/10/24 05:11 Anion Gap 10 L Estim Creat Clear Calc 257.4 Estimated GFR > 60 Random Glucose 144 H Calcium 7.8 L Phosphorus 2.6 L Magnesium 1.8 Albumin 2.4 L Assessment and Plan (1) Ileus: Status: Acute (2) Cirrhosis: Status: Acute Plan 34M PMH alcohol dependence with alcoholic cirrhosis, mood disorder, cholelithiasis presented with altered mental status Abdominal pain and distention 2/[address] abdomen showed Partial/intermittent distal small bowel obstruction. Hepatosplenomegaly and lymphadenopathy. Ascites, moderate volume. Probable cholelithiasis. Paracentesis attempted but minimal fluid, not consistent with SBP Surgery team following , no intervention planned Had 2 doses of Neostigmine 1st dose 04/07, and 5mg on 04/08 KUB suggested Ileus 04/07 Started PPN 04/07 GI did colonoscopy with fair response as distention improved, having more BM advance diet to full liquid , add ensure consider DC PPN once her tolerate more diet Acute metabolic encephalopathy due to acute hepatic encephalopathy due to alcohol dependence with alcoholic cirrhosis improving Lactulose to restart continue rifaximin Goal 2-3 bowel movements per day Pneumonia CT scan showed bilateral basal infiltrates more on Right On Zosyn staret 04/03, to DC today (finished 7 days) Incentive increase physical activity PHysucal deconditioning PT rec STR hallucinations improved seems to be out of proportion to level of hepatic encephalopathy at time, now much better with no reported hallucinations Psych appreciated started Invega Acute hypomagnesemia replacement given , monitor Hyperglycemia a1c - 4.3, Resolved Cholelithiasis Surgery appreciated, conservative care History of DVT Completed course of Eliquis, Eliquis discontinued Mood disorder Ativan p.r.n. DVT prophylaxis mechanical due to elevated INR Full code reason for continued hospitalization: pending diet and tolerating PO Quality Stroke Does the patient have a stroke diagnosis?: No VTE Prior VTE?: Yes VTE Risk Level:: Medical - moderate - high VTE Device Contraindication: N/A - Device Ordered VTE Drug Contraindication: Treatment Not Tolerated
[2024-04-10 15:55] VITALS: BP 116/68; PULSE 72; RESP 18; TEMP 37; O2SAT 93
[2024-04-10 19:23] VITALS: BP 105/58; PULSE 107; RESP 18; TEMP 36.7; O2SAT 93
[2024-04-10] MEDS: Parenteral Nutrition 2,040 ML 85 ML IV (20:56)
[2024-04-10] MEDS: Zolpidem Tartrate 5 MG TABLET PO (21:07)
[2024-04-11 03:08] VITALS: BP 115/66; PULSE 127; RESP 18; TEMP 36.8; O2SAT 91
--- NOTE | 2024-04-11 03:18 | PC.NURSE ---
vitals:T: 98.2, O2: 91%, 115/66, HR: 127, DR. Parra made aware, No new orders placed at this time, denies CP & SOB, pt calm and cooperative no apparent distress at this time. Will continue to monitor patient.
[2024-04-11 06:17] LABS: MANUAL DIFF FLAG NO
[2024-04-11 06:24] LABS: INTERNATIONAL NORM RATIO 2.1 (0.9-1.1); Prothrombin Time 24.3 SEC (10.9-12.4)
[2024-04-11 06:43] LABS: Anion Gap 9 (12-20); Blood Urea Nitrogen 5 mg/dL (9-16); Calcium 7.6 mg/dL (8.4-10.2); Carbon Dioxide 21 mmol/L (22-29); Chloride 109 mmol/L (96-108); Creatinine Clr Calc Pharmacy 281.4; Estimated Glomerular Filt Rate > 60; Glucose Random 125 mg/dL (60-115); Sodium 135 mmol/L (135-145)
[2024-04-11 06:45] LABS: Alanine Aminotransferase 18 U/L (0-40); Albumin Level 2.4 g/dL (3.5-5.0); Alkaline Phosphatase 140 U/L (39-117); Anion Gap 10 (12-20); Aspartate Amino Transferase 68 U/L (5-37); Bilirubin Direct 1.4 mg/dL (0.0-0.5); Bilirubin Total 2.2 mg/dL (0.0-1.0); Blood Urea Nitrogen 5 mg/dL (9-16); Calcium 7.7 mg/dL (8.4-10.2); Carbon Dioxide 21 mmol/L (22-29); Chloride 110 mmol/L (96-108); Estimated Glomerular Filt Rate > 60; Glucose Random 124 mg/dL (60-115); Magnesium 1.8 mg/dL (1.6-2.6); Phosphorus 3.5 mg/dL (2.7-4.5); Sodium 137 mmol/L (135-145); Total Protein 4.5 g/dL (6.5-8.0)
[2024-04-11 06:54] LABS: Basophils Percent Auto 0.4 % (0-2); Eosinophils Absolute Auto 0.3 X10*3/uL (0.0-0.4); Eosinophils Percent Auto 5.2 % (0-4); Hematocrit 31.8 % (42.0-52.0); Hemoglobin 11.4 g/dl (14.0-18.0); Imm Gran Abs Auto 0.01 X10*3/uL (0.00-0.03); Imm Gran Pct Auto 0.2 % (0.0-0.4); Lymphocytes Percent Auto 21.3 % (20-40); Mean Corpuscular HGB Conc 35.8 g/dl (31.0-36.0); Mean Corpuscular Hemoglobin 33.3 pg (27.0-33.0); Mean Platelet Volume 11.4 fL (9.4-12.4); Monocytes Absolute Auto 0.4 X10*3/uL (0.1-1.2); Monocytes Percent Auto 8.7 % (2-11); Neutrophils Absolute Auto 3.1 x10*3/uL (2.0-8.3); Neutrophils Percent Auto 64.2 % (45-73); Platelet Count 102 X10*3/uL (160-400); Red Blood Count 3.42 X10*6/uL (4.60-5.80); Red Cell Distribution Width 13.2 % (11.0-16.0); White Blood Count 4.8 X10*3/uL (4.8-10.8)
[2024-04-11 07:21] VITALS: BP 116/67; PULSE 108; RESP 16; TEMP 37.2; O2SAT 92
[2024-04-11] MEDS: Omeprazole 20 MG CAPSULE.DR PO (08:58)
[2024-04-11] MEDS: Nicotine 21 MG PATCH.TD24 TRANSDERMA (08:58)
[2024-04-11] MEDS: Paliperidone ER 3 MG TAB.ER.24 PO (08:58)
[2024-04-11] MEDS: Magnesium Oxide 400 MG TABLET PO ×2 (08:58→17:19)
[2024-04-11] MEDS: Thiamine HCL 100 MG TABLET PO (08:58)
[2024-04-11] MEDS: Multivitamin TABLET 1 TAB PO (08:58)
[2024-04-11] MEDS: rifAXIMin 550 MG TABLET PO (08:59)
[2024-04-11] MEDS: Spironolactone 25 MG TABLET 50 MG PO (08:59)
[2024-04-11] MEDS: Gabapentin 100 MG CAPSULE PO ×3 (08:59→21:13)
[2024-04-11] MEDS: Folic Acid 1 MG TABLET PO (08:59)
[2024-04-11] MEDS: atenoloL 25 MG TABLET PO (09:00)
[2024-04-11] MEDS: Lactulose 20 GM/30 ML SOLUTION PO ×2 (10:43→15:41)
[2024-04-11] MEDS: Buprenorphine/Naloxone 2/0.5mg FILM 1 FILM SUBLINGUAL (10:43)
--- NOTE | 2024-04-11 10:53 | MHC.CLN ---
Addendum entered by Natalya Cruz, ALIYA 04/11/24 11:01: ADDING ENSURE TID TO IMPROVE NUTRITIONAL INTAKE. SUPPLEMENT PROVIDES 1050 KCALS, 60 G PROTEIN. Original Note: F/U DIET ADVANCED TO REGULAR TODAY FROM FULL LIQUID. COMMUNICATED WITH PHARMACY AND MD. PER MD, NOT CONTINUING PPN AT THIS TIME. SKIN WITH STAGE I TO COCCYX. FOLLOW FOR DIET TOLERANCE AND PO INTAKE.
--- NOTE | 2024-04-11 10:56 | HO.PM.IMPN ---
Subjective Subjective Date of Service: 04/11/24 Interval History: Feeling better overall, having bowel movements ready to advance diet Physical Exam Vital Signs: Vital Signs: Last Vital Signs Temp 98.9 F 04/11/24 07:21 Pulse 108 H 04/11/24 07:21 Resp 16 04/11/24 07:21 BP 116/67 04/11/24 07:21 Pulse Ox 92 04/11/24 07:21 O2 Del Method Room Air 04/11/24 07:21 O2 Flow Rate 2.0 04/09/24 11:29 BMI result Body Mass Index 24.7 Alert oriented x3, less jaundiced than previous Abdomen still somewhat distended but soft, positive bowel sounds Lungs clear Objective Data Active Medications Acetaminophen (Acetaminophen 325 Mg Tablet) 650 mg PO Q6H PRN PRN Reason: Pain, Mild 1-3,fever,headache Last Admin: 04/05/24 08:56 Dose: 650 mg Documented By: LEO Atenolol (Atenolol 25 Mg Tablet) 25 mg PO DAILY [facility]; Protocol Last Admin: 04/11/24 09:00 Dose: 25 mg Documented By: KIRSTEN Buprenorphine/Naloxone (Buprenorphine/Naloxone 2/0.5mg Film) 1 film SUBLINGUAL DAILY@1000 [facility]ERT Last Admin: 04/11/24 10:43 Dose: 1 film Documented By: KIRSTEN Calcium Carbonate (Calcium Carbonate 750 Mg Tab.Chew) 750 mg PO Q4H PRN PRN Reason: Heartburn Last Admin: 04/04/24 16:51 Dose: 750 mg Documented By: HARESH Folic Acid (Folic Acid 1 Mg Tablet) 1 mg PO DAILY [facility] Last Admin: 04/11/24 08:59 Dose: 1 mg Documented By: KIRSTEN Furosemide (Furosemide 40 Mg Tablet) 40 mg PO DAILY [facility]; Protocol Last Admin: 04/07/24 08:36 Dose: 40 mg Documented By: LILLIAN Comments: Gabapentin (Gabapentin 100 Mg Capsule) 100 mg PO TID [facility] Last Admin: 04/11/24 08:59 Dose: 100 mg Documented By: KIRSTEN Nutrition (Parenteral) (Parenteral Nutrition) 2,040 mls @ 85 mls/hr IV .Q24H BERT; Protocol Stop: 04/11/24 20:59 Last Admin: 04/10/24 20:56 Dose: 85 mls/hr Documented By: CARMITA Lactulose (Lactulose 20 Gm/30 Ml Solution) 20 gm PO TID@1000,1500,2100 [facility] Last Admin: 04/11/24 10:43 Dose: 20 gm Documented By: KIRSTEN Magnesium Hydroxide (Milk Of Magnesia 30 Ml Oral.Susp) 30 ml PO DAILY PRN PRN Reason: Constipation Magnesium Oxide (Magnesium Oxide 400 Mg Tablet) 400 mg PO BIDPC [facility] Last Admin: 04/11/24 08:58 Dose: 400 mg Documented By: KIRSTEN Multivitamins/Vitamin C (Multivitamin Tablet) 1 tab PO DAILY [facility] Last Admin: 04/11/24 08:58 Dose: 1 tab Documented By: KIRSTEN Naloxone HCl (Naloxone Hcl 0.4 Mg/Ml Vial) 0.04 mg IVPUSH Q5M PRN PRN Reason: Excessive sedation or RR < 8 Nicotine (Nicotine 21 Mg Patch.Td24) 21 mg TRANSDERMA DAILY [facility] Last Admin: 04/11/24 08:58 Dose: 21 mg Documented By: KIRSTEN Omeprazole (Omeprazole 20 Mg Capsule.Dr) 20 mg PO DAILY [facility] Last Admin: 04/11/24 08:58 Dose: 20 mg Documented By: KIRSTEN Ondansetron HCl (Ondansetron Hcl 4 Mg/2 Ml Vial) 4 mg IVPUSH Q6H PRN PRN Reason: Nausea and Vomiting Last Admin: 04/04/24 08:57 Dose: 4 mg Documented By: HARESH Paliperidone (Paliperidone Er 3 Mg Tab.Er.24) 3 mg PO DAILY [facility] Last Admin: 04/11/24 08:58 Dose: 3 mg Documented By: KIRSTEN Pharmacy Consult (Consult Rx Parenteral Nutrition Ordering) 1 each MISCELLANE DAILY PRN PRN Reason: Consult order Rifaximin (Rifaximin 550 Mg Tablet) 550 mg PO BID [facility] Last Admin: 04/11/24 08:59 Dose: 550 mg Documented By: KIRSTEN Sodium Chloride (0.9 % Sodium Chloride Flush 3 Ml Syringe) 3 ml IVFLUSH QSHIFT [facility] Last Admin: 04/11/24 08:57 Dose: Not Given Documented By: KIRSTEN Non-Admin Reason: IV Running Spironolactone (Spironolactone 25 Mg Tablet) 50 mg PO DAILY [facility]; Protocol Last Admin: 04/11/24 08:59 Dose: 50 mg Documented By: KIRSTEN Thiamine HCl (Thiamine Hcl 100 Mg Tablet) 100 mg PO DAILY [facility] Last Admin: 04/11/24 08:58 Dose: 100 mg Documented By: KIRSTEN Zolpidem Tartrate (Zolpidem Tartrate 5 Mg Tablet) 5 mg PO BEDTIME PRN PRN Reason: Insomnia Last Admin: 04/10/24 21:07 Dose: 5 mg Documented By: PILYV Labs 04/11/24 06:08 04/11/24 06:08 Labs: Laboratory Results - last 24 hr 04/11/24 04/11/24 04/11/24 06:08 06:08 06:08 MCV 93.0 MCH 33.3 H MCHC 35.8 RDW 13.2 Plt Count 102 L MPV 11.4 Immature Gran % (Auto) 0.2 Neut % (Auto) 64.2 Lymph % (Auto) 21.3 Knox % (Auto) 8.7 Eos % (Auto) 5.2 H Baso % (Auto) 0.4 Lymph # (Auto) 1.0 L Knox # (Auto) 0.4 Eos # (Auto) 0.3 Baso # (Auto) 0.0 Abs Immat Gran (auto) 0.01 Absolute Neuts (auto) 3.1 Absolute Nucleated RBC 0.000 Nucleated RBC % (auto) 0.0 PT 24.3 H INR 2.1 H Anion Gap 10 L 9 L Estim Creat Clear Calc 275.0 281.4 Estimated GFR > 60 Random Glucose Calcium Phosphorus Magnesium Total Bilirubin Direct Bilirubin AST ALT Alkaline Phosphatase Total Protein Albumin 04/11/24 04/11/24 04/11/24 06:08 06:08 06:08 MCV MCH MCHC RDW Plt Count MPV Immature Gran % (Auto) Neut % (Auto) Lymph % (Auto) Knox % (Auto) Eos % (Auto) Baso % (Auto) Lymph # (Auto) Knox # (Auto) Eos # (Auto) Baso # (Auto) Abs Immat Gran (auto) Absolute Neuts (auto) Absolute Nucleated RBC Nucleated RBC % (auto) PT INR Anion Gap Estim Creat Clear Calc Estimated GFR > 60 Random Glucose 124 H 125 H Calcium 7.7 L 7.6 L Phosphorus 3.5 Magnesium 1.8 Total Bilirubin 2.2 H Direct Bilirubin 1.4 H AST 68 H ALT 18 Alkaline Phosphatase 140 H Total Protein 4.5 L Albumin 2.4 L Assessment and Plan (1) Ileus: Status: Acute (2) Cirrhosis: Status: Acute Plan 34M PMH alcohol dependence with alcoholic cirrhosis, mood disorder, cholelithiasis presented with altered mental status Abdominal pain and distention 2/[address] abdomen showed Partial/intermittent distal small bowel obstruction. Hepatosplenomegaly and lymphadenopathy. Ascites, moderate volume. Probable cholelithiasis. Paracentesis attempted but minimal fluid, not consistent with SBP Surgery team following , no intervention planned Had 2 doses of Neostigmine 1st dose 04/07, and 5mg on 04/08 KUB suggested Ileus 04/07 Started PPN 04/07 GI did colonoscopy with fair response as distention improved, having more BM advanced diet to solids , add ensure monitor for tolerance Acute metabolic encephalopathy due to acute hepatic encephalopathy due to alcohol dependence with alcoholic cirrhosis improving Lactulose continue rifaximin Goal 2-3 bowel movements per day Pneumonia CT scan showed bilateral basal infiltrates more on Right completed 7 day course of Zosyn increase physical activity Physical deconditioning PT rec STR hallucinations improved Psych appreciated started Invega Acute hypomagnesemia replacement given , monitor Hyperglycemia a1c - 4.3, Resolved Cholelithiasis Surgery appreciated, conservative care History of DVT Completed course of Eliquis, Eliquis discontinued Mood disorder Ativan p.r.n. DVT prophylaxis mechanical due to elevated INR Full code reason for continued hospitalization: pending diet and tolerating PO Quality Stroke Does the patient have a stroke diagnosis?: No VTE Prior VTE?: Yes VTE Risk Level:: Medical - moderate - high VTE Device Contraindication: N/A - Device Ordered VTE Drug Contraindication: Treatment Not Tolerated
--- NOTE | 2024-04-11 12:01 | MHC.CM.PN ---
[facility] has reviewed the Pt's clinical information. [facility] has declined the patient for Acute Rehab. Additional referrals have been sent to facilities providing STR. No bed offers have been received,yet.
[2024-04-11 15:21] VITALS: BP 115/71; PULSE 100; RESP 18; TEMP 36.9; O2SAT 93
[2024-04-11 19:21] VITALS: BP 113/69; PULSE 110; RESP 18; TEMP 37.1; O2SAT 94
[2024-04-11] MEDS: Zolpidem Tartrate 5 MG TABLET PO (21:23)
[2024-04-11] MEDS: 0.9 % Sodium Chloride Flush 3 ML SYRINGE IVFLUSH (22:30)
[2024-04-12 03:20] VITALS: BP 109/58; PULSE 110; RESP 18; TEMP 36.8; O2SAT 93
[2024-04-12 06:11] LABS: Hematocrit 32.9 % (42.0-52.0); Hemoglobin 11.7 g/dl (14.0-18.0); Mean Corpuscular HGB Conc 35.6 g/dl (31.0-36.0); Mean Corpuscular Hemoglobin 33.5 pg (27.0-33.0); Mean Corpuscular Volume 94.3 fL (80.0-98.0); Mean Platelet Volume 11.4 fL (9.4-12.4); Platelet Count 103 X10*3/uL (160-400); Red Blood Count 3.49 X10*6/uL (4.60-5.80); Red Cell Distribution Width 13.2 % (11.0-16.0)
[2024-04-12 06:21] LABS: Albumin Level 2.5 g/dL (3.5-5.0); Anion Gap 7 (12-20); Blood Urea Nitrogen 5 mg/dL (9-16); Calcium 7.9 mg/dL (8.4-10.2); Carbon Dioxide 22 mmol/L (22-29); Chloride 110 mmol/L (96-108); Creatinine Clr Calc Pharmacy 288.1; Estimated Glomerular Filt Rate > 60; Glucose Random 105 mg/dL (60-115); Magnesium 1.7 mg/dL (1.6-2.6); Phosphorus 3.3 mg/dL (2.7-4.5); Potassium 4.2 mmol/L (3.3-5.1); Sodium 135 mmol/L (135-145)
[2024-04-12 07:12] VITALS: BP 108/64; PULSE 107; RESP 14; TEMP 37.4; O2SAT 93
[2024-04-12] MEDS: Buprenorphine/Naloxone 2/0.5mg FILM 1 FILM SUBLINGUAL (09:33)
[2024-04-12] MEDS: atenoloL 25 MG TABLET PO (09:33)
[2024-04-12] MEDS: Nicotine 21 MG PATCH.TD24 TRANSDERMA (09:33)
[2024-04-12] MEDS: Paliperidone ER 3 MG TAB.ER.24 PO (09:33)
[2024-04-12] MEDS: Omeprazole 20 MG CAPSULE.DR PO (09:34)
[2024-04-12] MEDS: Multivitamin TABLET 1 TAB PO (09:34)
[2024-04-12] MEDS: Gabapentin 100 MG CAPSULE PO ×3 (09:34→21:14)
[2024-04-12] MEDS: Magnesium Oxide 400 MG TABLET PO ×2 (09:34→18:17)
[2024-04-12] MEDS: Thiamine HCL 100 MG TABLET PO (09:35)
[2024-04-12] MEDS: Spironolactone 25 MG TABLET 50 MG PO (09:35)
[2024-04-12] MEDS: 0.9 % Sodium Chloride Flush 3 ML SYRINGE IVFLUSH ×3 (09:35→21:15)
[2024-04-12] MEDS: Folic Acid 1 MG TABLET PO (09:35)
[2024-04-12] MEDS: Lactulose 20 GM/30 ML SOLUTION PO (09:41)
--- NOTE | 2024-04-12 09:49 | HO.PM.IMPN ---
Subjective Subjective Date of Service: 04/12/24 Interval History: did well with solids, having BMs Physical Exam Vital Signs: Vital Signs: Last Vital Signs Temp 99.4 F 04/12/24 07:12 Pulse 107 H 04/12/24 07:12 Resp 14 04/12/24 07:12 BP 108/64 04/12/24 07:12 Pulse Ox 93 04/12/24 07:12 O2 Del Method Room Air 04/12/24 07:12 O2 Flow Rate 2.0 04/09/24 11:29 BMI result Body Mass Index 24.7 Alert oriented x3, less jaundiced than previous Abdomen still somewhat distended but soft, positive bowel sounds Lungs clear Objective Data Active Medications Acetaminophen (Acetaminophen 325 Mg Tablet) 650 mg PO Q6H PRN PRN Reason: Pain, Mild 1-3,fever,headache Last Admin: 04/05/24 08:56 Dose: 650 mg Documented By: LEO Atenolol (Atenolol 25 Mg Tablet) 25 mg PO DAILY [facility]; Protocol Last Admin: 04/12/24 09:33 Dose: 25 mg Documented By: JOI Buprenorphine/Naloxone (Buprenorphine/Naloxone 2/0.5mg Film) 1 film SUBLINGUAL DAILY@1000 [facility] Last Admin: 04/12/24 09:33 Dose: 1 film Documented By: JOI Calcium Carbonate (Calcium Carbonate 750 Mg Tab.Chew) 750 mg PO Q4H PRN PRN Reason: Heartburn Last Admin: 04/04/24 16:51 Dose: 750 mg Documented By: HARSEH Folic Acid (Folic Acid 1 Mg Tablet) 1 mg PO DAILY [facility] Last Admin: 04/12/24 09:35 Dose: 1 mg Documented By: JOI Furosemide (Furosemide 40 Mg Tablet) 40 mg PO DAILY [facility]; Protocol Last Admin: 04/07/24 08:36 Dose: 40 mg Documented By: LILLIAN Comments: Gabapentin (Gabapentin 100 Mg Capsule) 100 mg PO TID [facility] Last Admin: 04/12/24 09:34 Dose: 100 mg Documented By: JOI Lactulose (Lactulose 20 Gm/30 Ml Solution) 20 gm PO TID@1000,1500,2100 [facility] Last Admin: 04/12/24 09:41 Dose: 20 gm Documented By: JOI Magnesium Hydroxide (Milk Of Magnesia 30 Ml Oral.Susp) 30 ml PO DAILY PRN PRN Reason: Constipation Magnesium Oxide (Magnesium Oxide 400 Mg Tablet) 400 mg PO BIDPC [facility] Last Admin: 04/12/24 09:34 Dose: 400 mg Documented By: JOI Multivitamins/Vitamin C (Multivitamin Tablet) 1 tab PO DAILY [facility] Last Admin: 04/12/24 09:34 Dose: 1 tab Documented By: JOI Naloxone HCl (Naloxone Hcl 0.4 Mg/Ml Vial) 0.04 mg IVPUSH Q5M PRN PRN Reason: Excessive sedation or RR < 8 Nicotine (Nicotine 21 Mg Patch.Td24) 21 mg TRANSDERMA DAILY [facility] Last Admin: 04/12/24 09:33 Dose: 21 mg Documented By: JOI Omeprazole (Omeprazole 20 Mg Capsule.Dr) 20 mg PO DAILY [facility] Last Admin: 04/12/24 09:34 Dose: 20 mg Documented By: JOI Ondansetron HCl (Ondansetron Hcl 4 Mg/2 Ml Vial) 4 mg IVPUSH Q6H PRN PRN Reason: Nausea and Vomiting Last Admin: 04/04/24 08:57 Dose: 4 mg Documented By: HARESH Paliperidone (Paliperidone Er 3 Mg Tab.Er.24) 3 mg PO DAILY [facility] Last Admin: 04/12/24 09:33 Dose: 3 mg Documented By: JOI Sodium Chloride (0.9 % Sodium Chloride Flush 3 Ml Syringe) [facility] Last Admin: 04/12/24 09:35 Dose: 3 ml Documented By: JOI Spironolactone (Spironolactone 25 Mg Tablet) 50 mg PO DAILY [facility]; Protocol Last Admin: 04/12/24 09:35 Dose: 50 mg Documented By: JOI Thiamine HCl (Thiamine Hcl 100 Mg Tablet) 100 mg PO DAILY [facility] Last Admin: 04/12/24 09:35 Dose: 100 mg Documented By: JOI Zolpidem Tartrate (Zolpidem Tartrate 5 Mg Tablet) 5 mg PO BEDTIME PRN PRN Reason: Insomnia Last Admin: 04/11/24 21:23 Dose: 5 mg Documented By: SEXK Labs 04/12/24 05:36 04/12/24 05:36 Labs: Laboratory Results - last 24 hr 04/12/24 05:36 MCV 94.3 MCH 33.5 H MCHC 35.6 RDW 13.2 Plt Count 103 L MPV 11.4 Absolute Nucleated RBC 0.000 Nucleated RBC % (auto) 0.0 Anion Gap 7 L Estim Creat Clear Calc 288.1 Estimated GFR > 60 Random Glucose 105 Calcium 7.9 L Phosphorus 3.3 Magnesium 1.7 Albumin 2.5 L Assessment and Plan (1) Ileus: Status: Acute (2) Cirrhosis: Status: Acute Plan 34M PMH alcohol dependence with alcoholic cirrhosis, mood disorder, cholelithiasis presented with altered mental status Abdominal pain and distention 2/[address] abdomen showed Partial/intermittent distal small bowel obstruction. Hepatosplenomegaly and lymphadenopathy. Ascites, moderate volume. Probable cholelithiasis. Paracentesis attempted but minimal fluid, not consistent with SBP Surgery team following , no intervention planned Had 2 doses of Neostigmine 1st dose 04/07, and 5mg on 04/08 KUB suggested Ileus 04/07 Started PPN 04/07 GI did colonoscopy with fair response as distention improved, having more BM appears to be tolerating solids Acute metabolic encephalopathy due to acute hepatic encephalopathy due to alcohol dependence with alcoholic cirrhosis improving Lactulose continue rifaximin Goal 2-3 bowel movements per day Pneumonia CT scan showed bilateral basal infiltrates more on Right completed 7 day course of Zosyn increase physical activity Physical deconditioning PT rec STR hallucinations improved Psych appreciated started Invega Acute hypomagnesemia replacement given Hyperglycemia a1c - 4.3, Resolved Cholelithiasis Surgery appreciated, conservative care History of DVT Completed course of Eliquis, Eliquis discontinued Mood disorder Ativan p.r.n. DVT prophylaxis mechanical due to elevated INR Full code reason for continued hospitalization: safe dispo Quality Stroke Does the patient have a stroke diagnosis?: No VTE Prior VTE?: Yes VTE Risk Level:: Medical - moderate - high VTE Device Contraindication: N/A - Device Ordered VTE Drug Contraindication: Treatment Not Tolerated
[2024-04-12 14:45] VITALS: BP 108/64; PULSE 107; O2SAT 93
[2024-04-12 15:23] VITALS: BP 117/69; PULSE 107; RESP 18; TEMP 37.3; O2SAT 96
[2024-04-12 19:49] VITALS: BP 119/73; PULSE 104; RESP 18; TEMP 36.8; O2SAT 93
[2024-04-13 04:00] VITALS: BP 111/64; PULSE 91; RESP 18; TEMP 36.6; O2SAT 93
[2024-04-13 06:28] LABS: Albumin Level 2.4 g/dL (3.5-5.0); Anion Gap 8 (12-20); Blood Urea Nitrogen 5 mg/dL (9-16); Calcium 7.7 mg/dL (8.4-10.2); Carbon Dioxide 22 mmol/L (22-29); Chloride 109 mmol/L (96-108); Creatinine Clr Calc Pharmacy 281.4; Estimated Glomerular Filt Rate > 60; Glucose Random 106 mg/dL (60-115); Magnesium 1.6 mg/dL (1.6-2.6); Phosphorus 3.2 mg/dL (2.7-4.5); Sodium 135 mmol/L (135-145)
[2024-04-13 08:24] VITALS: BP 106/63; PULSE 97; RESP 12; TEMP 37; O2SAT 93
--- NOTE | 2024-04-13 09:09 | P.PNIM_ITS ---
Subjective Subjective Date of Service: 04/13/24 Interval History: did well with solids, having BMs Physical Exam 2 Vital Signs: Vital Signs: Last Vital Signs Temp 98.6 F 04/13/24 08:24 Pulse 97 04/13/24 08:24 Resp 12 04/13/24 08:24 BP 106/63 04/13/24 08:24 Pulse Ox 93 04/13/24 08:24 O2 Del Method Room Air 04/13/24 08:24 O2 Flow Rate 2.0 04/09/24 11:29 BMI result Body Mass Index 24.7 Alert oriented x3, less jaundiced than previous Abdomen still somewhat distended but soft, positive bowel sounds Lungs clear Objective Data Active Medications Acetaminophen (Acetaminophen 325 Mg Tablet) 650 mg PO Q6H PRN PRN Reason: Pain, Mild 1-3,fever,headache Last Admin: 04/05/24 08:56 Dose: 650 mg Documented By: LEO Atenolol (Atenolol 25 Mg Tablet) 25 mg PO DAILY [facility]; Protocol Last Admin: 04/12/24 09:33 Dose: 25 mg Documented By: JOI Buprenorphine/Naloxone (Buprenorphine/Naloxone 2/0.5mg Film) 1 film SUBLINGUAL DAILY@1000 [facility] Last Admin: 04/12/24 09:33 Dose: 1 film Documented By: JOI Calcium Carbonate (Calcium Carbonate 750 Mg Tab.Chew) 750 mg PO Q4H PRN PRN Reason: Heartburn Last Admin: 04/04/24 16:51 Dose: 750 mg Documented By: HARESH Folic Acid (Folic Acid 1 Mg Tablet) 1 mg PO DAILY [facility] Last Admin: 04/12/24 09:35 Dose: 1 mg Documented By: JOI Furosemide (Furosemide 40 Mg Tablet) 40 mg PO DAILY [facility]; Protocol Last Admin: 04/07/24 08:36 Dose: 40 mg Documented By: LILLIAN Comments: Gabapentin (Gabapentin 100 Mg Capsule) 100 mg PO TID [facility] Last Admin: 04/12/24 21:14 Dose: 100 mg Documented By: NATHANIEL Lactulose (Lactulose 20 Gm/30 Ml Solution) 20 gm PO TID@1000,1500,2100 [facility] Last Admin: 04/12/24 21:14 Dose: Not Given Documented By: NATHANIEL Non-Admin Reason: Patient Refused Magnesium Hydroxide (Milk Of Magnesia 30 Ml Oral.Susp) 30 ml PO DAILY PRN PRN Reason: Constipation Magnesium Oxide (Magnesium Oxide 400 Mg Tablet) 400 mg PO BIDPC [facility] Last Admin: 04/12/24 18:17 Dose: 400 mg Documented By: JOI Multivitamins/Vitamin C (Multivitamin Tablet) 1 tab PO DAILY [facility] Last Admin: 04/12/24 09:34 Dose: 1 tab Documented By: JOI Naloxone HCl (Naloxone Hcl 0.4 Mg/Ml Vial) 0.04 mg IVPUSH Q5M PRN PRN Reason: Excessive sedation or RR < 8 Nicotine (Nicotine 21 Mg Patch.Td24) 21 mg TRANSDERMA DAILY [facility] Last Admin: 04/12/24 09:33 Dose: 21 mg Documented By: JOI Omeprazole (Omeprazole 20 Mg Capsule.Dr) 20 mg PO DAILY [facility] Last Admin: 04/12/24 09:34 Dose: 20 mg Documented By: JOI Ondansetron HCl (Ondansetron Hcl 4 Mg/2 Ml Vial) 4 mg IVPUSH Q6H PRN PRN Reason: Nausea and Vomiting Last Admin: 04/04/24 08:57 Dose: 4 mg Documented By: HARESH Paliperidone (Paliperidone Er 3 Mg Tab.Er.24) 3 mg PO DAILY [facility] Last Admin: 04/12/24 09:33 Dose: 3 mg Documented By: JOI Sodium Chloride (0.9 % Sodium Chloride Flush 3 Ml Syringe) [facility] Last Admin: 04/12/24 21:15 Dose: 3 ml Documented By: NATHANIEL Spironolactone (Spironolactone 25 Mg Tablet) 50 mg PO DAILY [facility]; Protocol Last Admin: 04/12/24 09:35 Dose: 50 mg Documented By: JOI Thiamine HCl (Thiamine Hcl 100 Mg Tablet) 100 mg PO DAILY [facility] Last Admin: 04/12/24 09:35 Dose: 100 mg Documented By: JOI Zolpidem Tartrate (Zolpidem Tartrate 5 Mg Tablet) 5 mg PO BEDTIME PRN PRN Reason: Insomnia Last Admin: 04/11/24 21:23 Dose: 5 mg Documented By: NATHANIEL Labs 04/12/24 05:36 04/13/24 05:30 Labs: Laboratory Results - last 24 hr 04/13/24 05:30 Anion Gap 8 L Estim Creat Clear Calc 281.4 Estimated GFR > 60 Random Glucose 106 Calcium 7.7 L Phosphorus 3.2 Magnesium 1.6 Albumin 2.4 L Assessment and Plan (1) Ileus: Status: Acute (2) Cirrhosis: Status: Acute Plan 34M PMH alcohol dependence with alcoholic cirrhosis, mood disorder, cholelithiasis presented with altered mental status Abdominal pain and distention 2/[address] abdomen showed Partial/intermittent distal small bowel obstruction. Hepatosplenomegaly and lymphadenopathy. Ascites, moderate volume. Probable cholelithiasis. Paracentesis attempted but minimal fluid, not consistent with SBP Surgery team following , no intervention planned Had 2 doses of Neostigmine 1st dose 04/07, and 5mg on 04/08 KUB suggested Ileus 04/07 Started PPN 04/07 GI did colonoscopy with fair response as distention improved, having more BM advanced to solids and tolerating Acute metabolic encephalopathy due to acute hepatic encephalopathy due to alcohol dependence with alcoholic cirrhosis improving Lactulose continue rifaximin Goal 2-3 bowel movements per day Pneumonia CT scan showed bilateral basal infiltrates more on Right completed 7 day course of Zosyn increase physical activity Physical deconditioning PT rec STR hallucinations improved Psych appreciated started Invega Acute hypomagnesemia replacement given Hyperglycemia a1c - 4.3, Resolved Cholelithiasis Surgery appreciated, conservative care History of DVT Completed course of Eliquis, Eliquis discontinued Mood disorder Ativan p.r.n. DVT prophylaxis mechanical due to elevated INR Full code reason for continued hospitalization: safe dispo Quality Stroke Does the patient have a stroke diagnosis?: No VTE Prior VTE?: Yes VTE Risk Level:: Medical - moderate - high VTE Device Contraindication: N/A - Device Ordered VTE Drug Contraindication: Treatment Not Tolerated
[2024-04-13] MEDS: 0.9 % Sodium Chloride Flush 3 ML SYRINGE IVFLUSH ×3 (09:19→20:04)
[2024-04-13] MEDS: Paliperidone ER 3 MG TAB.ER.24 PO (09:44)
[2024-04-13] MEDS: Lactulose 20 GM/30 ML SOLUTION PO (09:44)
[2024-04-13] MEDS: atenoloL 25 MG TABLET PO (09:44)
[2024-04-13] MEDS: Magnesium Oxide 400 MG TABLET PO ×2 (09:44→16:57)
[2024-04-13] MEDS: Gabapentin 100 MG CAPSULE PO ×3 (09:44→20:04)
[2024-04-13] MEDS: Buprenorphine/Naloxone 2/0.5mg FILM 1 FILM SUBLINGUAL (09:45)
[2024-04-13] MEDS: Spironolactone 25 MG TABLET 50 MG PO (09:45)
[2024-04-13] MEDS: Thiamine HCL 100 MG TABLET PO (09:45)
[2024-04-13] MEDS: Multivitamin TABLET 1 TAB PO (09:45)
[2024-04-13] MEDS: Omeprazole 20 MG CAPSULE.DR PO (09:45)
[2024-04-13] MEDS: Nicotine 21 MG PATCH.TD24 TRANSDERMA (09:45)
[2024-04-13] MEDS: Folic Acid 1 MG TABLET PO (09:45)
--- NOTE | 2024-04-13 09:52 | MHC.CLN ---
F/U DIET ADVANCED TO REGULAR ON 04/11. PO INTAKE USUALLY 50-100% SINCE DIET ADVANCEMENT. ENSURE TID PROVIDES 1050 KCALS, [address] TO FOLLOW UP WEEKLY.
--- NOTE | 2024-04-13 13:14 | HO.ADDICT_ITS ---
History of Present Illness Date of Service: 04/12/2024 Chief Complaint: hepatic encephalopathy Reason for Consult: AUD Sources of Information: patient interviewed and chart reviewed HPI Narrative: Patient is a 34 year old male with alcohol use disorder, severe. Medically admitted since 04/02/24 with hepatic encephalopathy, pneumonia and illeus Seen with Recovery Support RN. Mother and GF also present for part of interview. Patient awake, alert, quiet, minimal engagement when seen with mother and GF. More open once they were not in the room He reports log history of alcohol use disorder, with history of treatment via admission to [facility] and subsequent step down to [facility]. He believes this was about 7 years ago. He states he has not had any alcohol in about 2 months. Currently he is still weak and STR has been recommended. Mother vocalizing concern about now knowing where he will be placed. She states he has no place to go at the moment indefinitely, and she lives in [place]. She inquired about levels of care/ongoing treatment for AUD, and wondered when he could be referred to these places. Process was explained by field machinist, and reinforced that patient must be able to care for himself independently before being admitted there. Written resources also provided related to [facility]. With patient, we discussed recovery supports, interest in treatment. Patient ambivalent. Did not like his last [facility] admission --felt there was a lot of arguing, and people still using substances there. Offered to assist patient with accessing zoom recovery oriented meetings if he was interested in this, when he was feeling better, he said okay. Review of Systems Constitutional: Reports as per HPI and Reports weakness Reports weakness Diagnostics Vital Signs (24Hr): Vital Signs - 24 hr 04/12/24 14:45 04/12/24 15:23 04/12/24 19:49 Temperature 99.1 F 98.2 F Pulse Rate 107 H 107 H 104 H Respiratory Rate 18 18 Blood Pressure 108/64 117/69 119/73 Pulse Oximetry 93 96 93 Oxygen Delivery Method Room Air Room Air 04/13/24 04:00 04/13/24 08:24 Temperature 97.8 F 98.6 F Pulse Rate 91 97 Respiratory Rate 18 12 Blood Pressure 111/64 106/63 Pulse Oximetry 93 93 Oxygen Delivery Method Room Air Room Air BMI result Body Mass Index 24.7 Labs 04/12/24 05:36 04/13/24 05:30 Labs: Laboratory Results - last 48 hr 04/12/24 04/13/24 05:36 05:30 WBC 5.0 RBC 3.49 L Hgb 11.7 L Hct 32.9 L MCV 94.3 MCH 33.5 H MCHC 35.6 RDW 13.2 Plt Count 103 L MPV 11.4 Absolute Nucleated RBC 0.000 Nucleated RBC % (auto) 0.0 Sodium 135 135 Potassium 4.2 4.0 Chloride 110 H 109 H Carbon Dioxide 22 22 Anion Gap 7 L 8 L BUN 5 L 5 L Creatinine 0.42 L 0.43 L Estim Creat Clear Calc 288.1 281.4 Estimated GFR > 60 > 60 Random Glucose 105 106 Calcium 7.9 L 7.7 L Phosphorus 3.3 3.2 Magnesium 1.7 1.6 Albumin 2.5 L 2.4 L Imaging Radiology Impressions: ITS Impressions Abdomen Ultrasound 04/02/24 14:08 IMPRESSION: No significant ascites for ultrasound-guided paracentesis. Electronically signed by: Corey Herring MD 04/02/2024 03:25 PM EST RP Chest X-Ray 04/03/24 08:20 IMPRESSION: Hypoexpanded lungs with bibasilar atelectasis. There is midlung atelectasis as well. No gross bony abnormality seen. Electronically signed by: Corey Herring MD 04/03/2024 09:34 AM EST RP Abdomen/Pelvis CT 04/03/24 11:12 IMPRESSION: Partial/intermittent distal small bowel obstruction. Internal hernia cannot be excluded. Hepatosplenomegaly and lymphadenopathy. Ascites, moderate volume. Multifocal pneumonia, right lower lung lobes. Probable cholelithiasis. Discussed with the requesting physician Dr. Chintan Tanner at 11:55 AM. Fleischner guidelines were followed. Electronically signed by: Natalio Garcia MD 04/03/2024 12:06 PM EST RP KUB X-Ray 04/05/24 16:00 IMPRESSION: Findings strongly suggestive for diffuse ileus likely secondary to cirrhosis and ascites as visualized on the previous CT abdomen exam on 10/14/2024. There is no suggestion of pneumatosis or free air. Electronically signed by: Corey Herring MD 04/05/2024 04:22 PM [facility] [place] Exam Mental Status Exam Patient Appearance: Appropriate Level of Consciousness: Awake, Appropriate and Alert Patient Behavior: Appropriate and Asleep Mood Description: Calm Affect Description: Calm Speech Pattern: Clear Medications Medications Current Medications Acetaminophen (Acetaminophen 325 Mg Tablet) 650 mg PO Q6H PRN PRN Reason: Pain, Mild 1-3,fever,headache Last Admin: 04/05/24 08:56 Dose: 650 mg Atenolol (Atenolol 25 Mg Tablet) 25 mg PO DAILY [facility]; Protocol Last Admin: 04/13/24 09:44 Dose: 25 mg Buprenorphine/Naloxone (Buprenorphine/Naloxone 2/0.5mg Film) 1 film SUBLINGUAL DAILY@1000 [facility] Last Admin: 04/13/24 09:45 Dose: 1 film Calcium Carbonate (Calcium Carbonate 750 Mg Tab.Chew) 750 mg PO Q4H PRN PRN Reason: Heartburn Last Admin: 04/04/24 16:51 Dose: 750 mg Folic Acid (Folic Acid 1 Mg Tablet) 1 mg PO DAILY [facility] Last Admin: 04/13/24 09:45 Dose: 1 mg Furosemide (Furosemide 40 Mg Tablet) 40 mg PO DAILY [facility]; Protocol Last Admin: 04/07/24 08:36 Dose: 40 mg Gabapentin (Gabapentin 100 Mg Capsule) 100 mg PO TID [facility] Last Admin: 04/13/24 09:44 Dose: 100 mg Lactulose (Lactulose 20 Gm/30 Ml Solution) 20 gm PO TID@1000,1500,2100 [facility] Last Admin: 04/13/24 09:44 Dose: 20 gm Magnesium Hydroxide (Milk Of Magnesia 30 Ml Oral.Susp) 30 ml PO DAILY PRN PRN Reason: Constipation Magnesium Oxide (Magnesium Oxide 400 Mg Tablet) 400 mg PO BIDPC [facility] Last Admin: 04/13/24 09:44 Dose: 400 mg Multivitamins/Vitamin C (Multivitamin Tablet) 1 tab PO DAILY [facility] Last Admin: 04/13/24 09:45 Dose: 1 tab Naloxone HCl (Naloxone Hcl 0.4 Mg/Ml Vial) 0.04 mg IVPUSH Q5M PRN PRN Reason: Excessive sedation or RR < 8 Nicotine (Nicotine 21 Mg Patch.Td24) 21 mg TRANSDERMA DAILY [facility] Last Admin: 04/13/24 09:45 Dose: 21 mg Omeprazole (Omeprazole 20 Mg Capsule.Dr) 20 mg PO DAILY [facility] Last Admin: 04/13/24 09:45 Dose: 20 mg Ondansetron HCl (Ondansetron Hcl 4 Mg/2 Ml Vial) 4 mg IVPUSH Q6H PRN PRN Reason: Nausea and Vomiting Last Admin: 04/04/24 08:57 Dose: 4 mg Paliperidone (Paliperidone Er 3 Mg Tab.Er.24) 3 mg PO DAILY [facility] Last Admin: 04/13/24 09:44 Dose: 3 mg Sodium Chloride (0.9 % Sodium Chloride Flush 3 Ml Syringe) 3 ml IVFLUSH QSHIFT [facility] Last Admin: 04/13/24 09:19 Dose: 3 ml Spironolactone (Spironolactone 25 Mg Tablet) 50 mg PO DAILY [facility]; Protocol Last Admin: 04/13/24 09:45 Dose: 50 mg Thiamine HCl (Thiamine Hcl 100 Mg Tablet) 100 mg PO DAILY [facility] Last Admin: 04/13/24 09:45 Dose: 100 mg Zolpidem Tartrate (Zolpidem Tartrate 5 Mg Tablet) 5 mg PO BEDTIME PRN PRN Reason: Insomnia Last Admin: 04/11/24 21:23 Dose: 5 mg Allergies Allergies Allergy/AdvReac Type Severity Reaction Status Date / Time No Known Allergies Allergy Verified 04/01/24 04:17 Assessment & Plan Assessment & Plan (1) Alcohol use disorder: Status: Acute Code(s): F10.90 - Alcohol use, unspecified, uncomplicated Assessment and Plan: * provided patient with written resources --at this time patient not appropriate to refer to any level of care for ongoing treatment, however he can continue to reach out to facilities if he wishes. * will continue to check in during admission * dispo STR * mother provided with resources for supports for herself Total time managing care of this patient today __45__ minutes. PMFSH Past Medical History Medical History Postprandial abdominal pain in right upper quadrant COVID Cirrhosis Neuropathy Sensory ataxia Clavicle fracture Alcohol abuse Foot pain, bilateral Abnormal complete blood count Abnormal liver enzymes No known health problems Family History Family History Paternal Grandfather Cancer Paternal Grandmother Cancer Surgical History Surgical History Hx of skin graft Social History Social History Household Members: Significant Other Housing: Condominium Are you a primary child care center assistant director to a significant other at home: No Do you presently have visiting nurse or other home services: No Alcohol intake: former Comment: patient refusing bed alarm, steady on feet, high fall risk per CIWA protoca Patient Tobacco Use Status: Former Tobacco user Years Smoked: 10 e-Cigarette/Vaping Use: Currently Using Substance Use Type: Marijuana service: No 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 status: 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
--- NOTE | 2024-04-13 13:51 | MHC.CM.PN ---
PT AWAITING STR PLACEMENT, REFERRAL EXPANDED TO A 100 MILE RADIUS. [facility] IS OFFERING PENDING INSURANCE AUTH PT AWARE AND STATES HE WILL UPDATE FAMILY
[2024-04-13 15:29] VITALS: BP 102/59; PULSE 96; RESP 18; TEMP 36.6; O2SAT 92
[2024-04-13 19:37] VITALS: BP 122/76; PULSE 113; RESP 18; TEMP 36.4; O2SAT 93
[2024-04-13] MEDS: Zolpidem Tartrate 5 MG TABLET PO (21:26)
[2024-04-14 04:00] VITALS: BP 127/64; PULSE 63; RESP 18; TEMP 36.7; O2SAT 96
[2024-04-14 06:59] VITALS: BP 99/55; PULSE 99; RESP 16; TEMP 36.5; O2SAT 89
[2024-04-14 07:07] LABS: Albumin Level 2.3 g/dL (3.5-5.0); Anion Gap 10 (12-20); Blood Urea Nitrogen 4 mg/dL (9-16); Calcium 7.6 mg/dL (8.4-10.2); Carbon Dioxide 21 mmol/L (22-29); Chloride 108 mmol/L (96-108); Estimated Glomerular Filt Rate > 60; Glucose Random 113 mg/dL (60-115); Magnesium 1.6 mg/dL (1.6-2.6); Phosphorus 3.2 mg/dL (2.7-4.5); Potassium 3.8 mmol/L (3.3-5.1); Sodium 135 mmol/L (135-145)
[2024-04-14 08:25] VITALS: BP 105/60
[2024-04-14] MEDS: Nicotine 21 MG PATCH.TD24 TRANSDERMA (08:43)
[2024-04-14] MEDS: Omeprazole 20 MG CAPSULE.DR PO (08:44)
[2024-04-14] MEDS: Thiamine HCL 100 MG TABLET PO (08:44)
[2024-04-14] MEDS: Folic Acid 1 MG TABLET PO (08:44)
[2024-04-14] MEDS: Gabapentin 100 MG CAPSULE PO ×3 (08:44→19:58)
[2024-04-14] MEDS: Multivitamin TABLET 1 TAB PO (08:44)
[2024-04-14] MEDS: atenoloL 25 MG TABLET PO (08:44)
[2024-04-14] MEDS: Magnesium Oxide 400 MG TABLET PO ×2 (08:44→17:07)
[2024-04-14] MEDS: Spironolactone 25 MG TABLET 50 MG PO (08:44)
[2024-04-14] MEDS: 0.9 % Sodium Chloride Flush 3 ML SYRINGE IVFLUSH ×3 (08:48→19:59)
--- NOTE | 2024-04-14 09:01 | P.PNIM_ITS ---
Subjective Subjective Date of Service: 04/14/24 Interval History: did well with solids, having BMs Physical Exam 2 Vital Signs: Vital Signs: Last Vital Signs Temp 97.7 F 04/14/24 06:59 Pulse 99 04/14/24 06:59 Resp 16 04/14/24 06:59 BP 105/60 04/14/24 08:25 Pulse Ox 89 L 04/14/24 06:59 O2 Del Method Room Air 04/14/24 06:59 O2 Flow Rate 2.0 04/09/24 11:29 BMI result Body Mass Index 24.7 Alert oriented x3, less jaundiced than previous Abdomen still somewhat distended but soft, positive bowel sounds Lungs clear Objective Data Active Medications Acetaminophen (Acetaminophen 325 Mg Tablet) 650 mg PO Q6H PRN PRN Reason: Pain, Mild 1-3,fever,headache Last Admin: 04/05/24 08:56 Dose: 650 mg Documented By: LEO Atenolol (Atenolol 25 Mg Tablet) 25 mg PO DAILY [facility]; Protocol Last Admin: 04/14/24 08:44 Dose: 25 mg Documented By: TAYLA Buprenorphine/Naloxone (Buprenorphine/Naloxone 2/0.5mg Film) 1 film SUBLINGUAL DAILY@1000 [facility] Last Admin: 04/13/24 09:45 Dose: 1 film Documented By: JOI Calcium Carbonate (Calcium Carbonate 750 Mg Tab.Chew) 750 mg PO Q4H PRN PRN Reason: Heartburn Last Admin: 04/04/24 16:51 Dose: 750 mg Documented By: HARESH Folic Acid (Folic Acid 1 Mg Tablet) 1 mg PO DAILY [facility] Last Admin: 04/14/24 08:44 Dose: 1 mg Documented By: TAYLA Furosemide (Furosemide 40 Mg Tablet) 40 mg PO DAILY [facility]; Protocol Last Admin: 04/07/24 08:36 Dose: 40 mg Documented By: LILLIAN Comments: Gabapentin (Gabapentin 100 Mg Capsule) 100 mg PO TID [facility] Last Admin: 04/14/24 08:44 Dose: 100 mg Documented By: TAYLA Lactulose (Lactulose 20 Gm/30 Ml Solution) 20 gm PO TID@1000,1500,2100 [facility] Last Admin: 04/13/24 20:05 Dose: Not Given Documented By: DES Non-Admin Reason: Patient Refused Magnesium Hydroxide (Milk Of Magnesia 30 Ml Oral.Susp) 30 ml PO DAILY PRN PRN Reason: Constipation Magnesium Oxide (Magnesium Oxide 400 Mg Tablet) 400 mg PO BIDPC [facility] Last Admin: 04/14/24 08:44 Dose: 400 mg Documented By: TAYLA Multivitamins/Vitamin C (Multivitamin Tablet) 1 tab PO DAILY [facility] Last Admin: 04/14/24 08:44 Dose: 1 tab Documented By: TAYLA Naloxone HCl (Naloxone Hcl 0.4 Mg/Ml Vial) 0.04 mg IVPUSH Q5M PRN PRN Reason: Excessive sedation or RR < 8 Nicotine (Nicotine 21 Mg Patch.Td24) 21 mg TRANSDERMA DAILY [facility] Last Admin: 04/14/24 08:43 Dose: 21 mg Documented By: TAYLA Omeprazole (Omeprazole 20 Mg Capsule.Dr) 20 mg PO DAILY [facility] Last Admin: 04/14/24 08:44 Dose: 20 mg Documented By: TAYLA Ondansetron HCl (Ondansetron Hcl 4 Mg/2 Ml Vial) 4 mg IVPUSH Q6H PRN PRN Reason: Nausea and Vomiting Last Admin: 04/04/24 08:57 Dose: 4 mg Documented By: HARESH Sodium Chloride (0.9 % Sodium Chloride Flush 3 Ml Syringe) [facility] Last Admin: 04/14/24 08:48 Dose: 3 ml Documented By: TAYLA Spironolactone (Spironolactone 25 Mg Tablet) 50 mg PO DAILY [facility]; Protocol Last Admin: 04/14/24 08:44 Dose: 50 mg Documented By: TAYLA Thiamine HCl (Thiamine Hcl 100 Mg Tablet) 100 mg PO DAILY [facility] Last Admin: 04/14/24 08:44 Dose: 100 mg Documented By: TAYLA Zolpidem Tartrate (Zolpidem Tartrate 5 Mg Tablet) 5 mg PO BEDTIME PRN PRN Reason: Insomnia Last Admin: 04/13/24 21:26 Dose: 5 mg Documented By: DES Labs 04/12/24 05:36 04/14/24 06:00 Labs: Laboratory Results - last 24 hr 04/14/24 06:00 Anion Gap 10 L Estim Creat Clear Calc 275.0 Estimated GFR > 60 Random Glucose 113 Calcium 7.6 L Phosphorus 3.2 Magnesium 1.6 Albumin 2.3 L Assessment and Plan (1) Ileus: Status: Acute (2) Cirrhosis: Status: Acute Plan 34M PMH alcohol dependence with alcoholic cirrhosis, mood disorder, cholelithiasis presented with altered mental status Abdominal pain and distention 2/[address] abdomen showed Partial/intermittent distal small bowel obstruction. Hepatosplenomegaly and lymphadenopathy. Ascites, moderate volume. Probable cholelithiasis. Paracentesis attempted but minimal fluid, not consistent with SBP Surgery team following , no intervention planned Had 2 doses of Neostigmine 1st dose 04/07, and 5mg on 04/08 KUB suggested Ileus 04/07 Started PPN 04/07 GI did colonoscopy with fair response as distention improved, having more BM advanced to solids and tolerating Acute metabolic encephalopathy due to acute hepatic encephalopathy due to alcohol dependence with alcoholic cirrhosis improving Lactulose continue rifaximin Goal 2-3 bowel movements per day Pneumonia CT scan showed bilateral basal infiltrates more on Right completed 7 day course of Zosyn increase physical activity Physical deconditioning PT rec STR hallucinations improved Psych appreciated started Invega Acute hypomagnesemia replacement given Hyperglycemia a1c - 4.3, Resolved Cholelithiasis Surgery appreciated, conservative care History of DVT Completed course of Eliquis, Eliquis discontinued Mood disorder Ativan p.r.n. DVT prophylaxis mechanical due to elevated INR Full code reason for continued hospitalization: safe dispo Quality Stroke Does the patient have a stroke diagnosis?: No VTE Prior VTE?: Yes VTE Risk Level:: Medical - moderate - high VTE Device Contraindication: N/A - Device Ordered VTE Drug Contraindication: Treatment Not Tolerated
[2024-04-14] MEDS: Buprenorphine/Naloxone 2/0.5mg FILM 1 FILM SUBLINGUAL (09:39)
[2024-04-14] MEDS: Lactulose 20 GM/30 ML SOLUTION PO ×2 (09:39→14:56)
[2024-04-14 15:23] VITALS: BP 116/69; PULSE 92; RESP 20; TEMP 36.5; O2SAT 92
[2024-04-14 19:28] VITALS: BP 122/70; PULSE 107; RESP 18; TEMP 36.6; O2SAT 94
[2024-04-14] MEDS: Zolpidem Tartrate 5 MG TABLET PO (21:15)
[2024-04-15 03:43] VITALS: BP 114/62; PULSE 94; RESP 18; TEMP 36.3; O2SAT 95
[2024-04-15 07:26] LABS: Albumin Level 2.4 g/dL (3.5-5.0); Anion Gap 11 (12-20); Blood Urea Nitrogen < 3 mg/dL (9-16); Calcium 7.7 mg/dL (8.4-10.2); Carbon Dioxide 22 mmol/L (22-29); Chloride 108 mmol/L (96-108); Creatinine Clr Calc Pharmacy 281.4; Estimated Glomerular Filt Rate > 60; Glucose Random 104 mg/dL (60-115); Magnesium 1.5 mg/dL (1.6-2.6); Phosphorus 3.8 mg/dL (2.7-4.5); Potassium 3.6 mmol/L (3.3-5.1); Sodium 137 mmol/L (135-145)
[2024-04-15 07:51] VITALS: BP 110/65; PULSE 105; RESP 18; TEMP 36.5; O2SAT 93
--- NOTE | 2024-04-15 08:46 | HO.PM.IMPN ---
Subjective Subjective Date of Service: 04/15/24 Interval History: worsening anasarca Physical Exam Vital Signs: Vital Signs: Last Vital Signs Temp 97.7 F 04/15/24 07:51 Pulse 105 H 04/15/24 07:51 Resp 18 04/15/24 07:51 BP 110/65 04/15/24 07:51 Pulse Ox 93 04/15/24 07:51 O2 Del Method Room Air 04/15/24 07:51 O2 Flow Rate 2.0 04/09/24 11:29 BMI result Body Mass Index 24.7 Alert oriented x3, less jaundiced than previous Abdomen still somewhat distended but soft, positive bowel sounds Lungs clear Objective Data Active Medications Acetaminophen (Acetaminophen 325 Mg Tablet) 650 mg PO Q6H PRN PRN Reason: Pain, Mild 1-3,fever,headache Last Admin: 04/05/24 08:56 Dose: 650 mg Documented By: LEO Atenolol (Atenolol 25 Mg Tablet) 25 mg PO DAILY [facility]; Protocol Last Admin: 04/14/24 08:44 Dose: 25 mg Documented By: TAYLA Buprenorphine/Naloxone (Buprenorphine/Naloxone 2/0.5mg Film) 1 film SUBLINGUAL DAILY@1000 [facility] Last Admin: 04/14/24 09:39 Dose: 1 film Documented By: TAYLA Calcium Carbonate (Calcium Carbonate 750 Mg Tab.Chew) 750 mg PO Q4H PRN PRN Reason: Heartburn Last Admin: 04/04/24 16:51 Dose: 750 mg Documented By: HARESH Folic Acid (Folic Acid 1 Mg Tablet) 1 mg PO DAILY [facility] Last Admin: 04/14/24 08:44 Dose: 1 mg Documented By: TAYLA Furosemide (Furosemide 40 Mg Tablet) 40 mg PO DAILY [facility]; Protocol Last Admin: 04/07/24 08:36 Dose: 40 mg Documented By: LILLIAN Comments: Gabapentin (Gabapentin 100 Mg Capsule) 100 mg PO TID [facility] Last Admin: 04/14/24 19:58 Dose: 100 mg Documented By: DES Magnesium Sulfate (Magnesium Sulfate/H2o) 2 gm in 50 mls @ 25 mls/hr IV ONCE ONE Stop: 04/15/24 09:37 Lactulose (Lactulose 20 Gm/30 Ml Solution) 20 gm PO TID@1000,1500,2100 [facility] Last Admin: 04/14/24 20:01 Dose: Not Given Documented By: DES Non-Admin Reason: Patient Refused Magnesium Hydroxide (Milk Of Magnesia 30 Ml Oral.Susp) 30 ml PO DAILY PRN PRN Reason: Constipation Magnesium Oxide (Magnesium Oxide 400 Mg Tablet) 400 mg PO BIDPC [facility] Last Admin: 04/14/24 17:07 Dose: 400 mg Documented By: TAYLA Multivitamins/Vitamin C (Multivitamin Tablet) 1 tab PO DAILY [facility] Last Admin: 04/14/24 08:44 Dose: 1 tab Documented By: TAYLA Naloxone HCl (Naloxone Hcl 0.4 Mg/Ml Vial) 0.04 mg IVPUSH Q5M PRN PRN Reason: Excessive sedation or RR < 8 Nicotine (Nicotine 21 Mg Patch.Td24) 21 mg TRANSDERMA DAILY [facility] Last Admin: 04/14/24 08:43 Dose: 21 mg Documented By: TAYLA Omeprazole (Omeprazole 20 Mg Capsule.Dr) 20 mg PO DAILY [facility] Last Admin: 04/14/24 08:44 Dose: 20 mg Documented By: TAYLA Ondansetron HCl (Ondansetron Hcl 4 Mg/2 Ml Vial) 4 mg IVPUSH Q6H PRN PRN Reason: Nausea and Vomiting Last Admin: 04/04/24 08:57 Dose: 4 mg Documented By: HARESH Sodium Chloride (0.9 % Sodium Chloride Flush 3 Ml Syringe) 3 ml IVFLUSH QSHIFT [facility] Last Admin: 04/14/24 19:59 Dose: 3 ml Documented By: DES Spironolactone (Spironolactone 25 Mg Tablet) 50 mg PO DAILY [facility]; Protocol Last Admin: 04/14/24 08:44 Dose: 50 mg Documented By: TAYLA Thiamine HCl (Thiamine Hcl 100 Mg Tablet) 100 mg PO DAILY [facility] Last Admin: 04/14/24 08:44 Dose: 100 mg Documented By: TAYLA Zolpidem Tartrate (Zolpidem Tartrate 5 Mg Tablet) 5 mg PO BEDTIME PRN PRN Reason: Insomnia Last Admin: 04/14/24 21:15 Dose: 5 mg Documented By: DES Labs 04/12/24 05:36 04/15/24 05:49 Labs: Laboratory Results - last 24 hr 04/15/24 05:49 Anion Gap 11 L Estim Creat Clear Calc 281.4 Estimated GFR > 60 Random Glucose 104 Calcium 7.7 L Phosphorus 3.8 Magnesium 1.5 L Albumin 2.4 L Assessment and Plan (1) Ileus: Status: Acute (2) Cirrhosis: Status: Acute Plan 34M PMH alcohol dependence with alcoholic cirrhosis, mood disorder, cholelithiasis presented with altered mental status Abdominal pain and distention 2/[address] abdomen showed Partial/intermittent distal small bowel obstruction. Hepatosplenomegaly and lymphadenopathy. Ascites, moderate volume. Probable cholelithiasis. Paracentesis attempted but minimal fluid, not consistent with SBP Surgery team following , no intervention planned Had 2 doses of Neostigmine 1st dose 04/07, and 5mg on 04/08 KUB suggested Ileus 04/07 Started PPN 04/07 GI did colonoscopy with fair response as distention improved, having more BM advanced to solids and tolerating Acute metabolic encephalopathy due to acute hepatic encephalopathy due to alcohol dependence with alcoholic cirrhosis improving Lactulose continue rifaximin Goal 2-3 bowel movements per day anasarca due to cirrhosis will shift fluids with albumin and lasix Pneumonia CT scan showed bilateral basal infiltrates more on Right completed 7 day course of Zosyn increase physical activity Physical deconditioning PT rec STR hallucinations improved Psych appreciated started Invega Acute hypomagnesemia replacement given Hyperglycemia a1c - 4.3, Resolved Cholelithiasis Surgery appreciated, conservative care History of DVT Completed course of Eliquis, Eliquis discontinued Mood disorder Ativan p.r.n. DVT prophylaxis mechanical due to elevated INR Full code reason for continued hospitalization: anasarca Quality Stroke Does the patient have a stroke diagnosis?: No VTE Prior VTE?: Yes VTE Risk Level:: Medical - moderate - high VTE Device Contraindication: N/A - Device Ordered VTE Drug Contraindication: Treatment Not Tolerated
[2024-04-15] MEDS: Magnesium Sulfate/H2O 2 GM/50 ML PIGGYBACK IV (08:56)
[2024-04-15] MEDS: Nicotine 21 MG PATCH.TD24 TRANSDERMA (08:56)
[2024-04-15] MEDS: Furosemide 40 MG/4 ML VIAL IVPUSH ×2 (08:56→17:29)
[2024-04-15] MEDS: Magnesium Oxide 400 MG TABLET PO ×2 (08:57→17:29)
[2024-04-15] MEDS: Folic Acid 1 MG TABLET PO (08:57)
[2024-04-15] MEDS: Spironolactone 25 MG TABLET 50 MG PO (08:57)
[2024-04-15] MEDS: Gabapentin 100 MG CAPSULE PO ×3 (08:57→20:11)
[2024-04-15] MEDS: atenoloL 25 MG TABLET PO (08:57)
[2024-04-15] MEDS: Multivitamin TABLET 1 TAB PO (08:57)
[2024-04-15] MEDS: Thiamine HCL 100 MG TABLET PO (08:57)
[2024-04-15] MEDS: Omeprazole 20 MG CAPSULE.DR PO (08:57)
[2024-04-15] MEDS: 0.9 % Sodium Chloride Flush 3 ML SYRINGE IVFLUSH ×3 (08:57→20:14)
[2024-04-15] MEDS: Lactulose 20 GM/30 ML SOLUTION PO ×2 (10:44→20:11)
[2024-04-15] MEDS: Albumin Human 25 % 100 ML IV ×2 (10:44→11:40)
[2024-04-15] MEDS: Buprenorphine/Naloxone 2/0.5mg FILM 1 FILM SUBLINGUAL (10:44)
[2024-04-15 14:55] VITALS: BP 102/61; PULSE 94; RESP 20; TEMP 36.3; O2SAT 92
[2024-04-15 17:22] VITALS: BP 111/62; PULSE 92; RESP 20; TEMP 36.4; O2SAT 93
[2024-04-15 19:11] VITALS: BP 106/55; PULSE 97; RESP 20; TEMP 36.2; O2SAT 94
[2024-04-15] MEDS: LORazepam 1 MG TABLET PO (21:59)
[2024-04-16 04:13] VITALS: BP 97/55; PULSE 100; RESP 16; TEMP 37.2; O2SAT 92
[2024-04-16 07:27] LABS: Hematocrit 31.2 % (42.0-52.0); Hemoglobin 10.8 g/dl (14.0-18.0); Mean Corpuscular HGB Conc 34.6 g/dl (31.0-36.0); Mean Corpuscular Hemoglobin 32.8 pg (27.0-33.0); Mean Corpuscular Volume 94.8 fL (80.0-98.0); Mean Platelet Volume 12.2 fL (9.4-12.4); Platelet Count 116 X10*3/uL (160-400); Red Blood Count 3.29 X10*6/uL (4.60-5.80); Red Cell Distribution Width 13.4 % (11.0-16.0); White Blood Count 3.8 X10*3/uL (4.8-10.8)
[2024-04-16 07:37] VITALS: BP 103/62; PULSE 93; RESP 14; TEMP 36.2; O2SAT 92
[2024-04-16 07:46] LABS: Alanine Aminotransferase 22 U/L (0-40); Albumin Level 2.8 g/dL (3.5-5.0); Alkaline Phosphatase 133 U/L (39-117); Anion Gap 10 (12-20); Aspartate Amino Transferase 77 U/L (5-37); Bilirubin Direct 1.4 mg/dL (0.0-0.5); Bilirubin Total 2.7 mg/dL (0.0-1.0); Blood Urea Nitrogen < 3 mg/dL (9-16); Calcium 7.7 mg/dL (8.4-10.2); Carbon Dioxide 26 mmol/L (22-29); Chloride 105 mmol/L (96-108); Creatinine Clr Calc Pharmacy 295.1; Estimated Glomerular Filt Rate > 60; Glucose Random 92 mg/dL (60-115); Magnesium 1.6 mg/dL (1.6-2.6); Phosphorus 3.6 mg/dL (2.7-4.5); Potassium 3.2 mmol/L (3.3-5.1); Sodium 138 mmol/L (135-145); Total Protein 5.1 g/dL (6.5-8.0)
[2024-04-16] MEDS: Nicotine 21 MG PATCH.TD24 TRANSDERMA (08:05)
[2024-04-16] MEDS: Spironolactone 25 MG TABLET 50 MG PO (08:06)
[2024-04-16] MEDS: Multivitamin TABLET 1 TAB PO (08:06)
[2024-04-16] MEDS: Gabapentin 100 MG CAPSULE PO ×3 (08:06→21:57)
[2024-04-16] MEDS: Omeprazole 20 MG CAPSULE.DR PO (08:06)
[2024-04-16] MEDS: Magnesium Oxide 400 MG TABLET PO ×2 (08:06→17:10)
[2024-04-16] MEDS: Folic Acid 1 MG TABLET PO (08:06)
[2024-04-16] MEDS: atenoloL 25 MG TABLET PO (08:06)
[2024-04-16] MEDS: 0.9 % Sodium Chloride Flush 3 ML SYRINGE IVFLUSH ×3 (08:07→22:03)
[2024-04-16] MEDS: Thiamine HCL 100 MG TABLET PO (08:07)
--- NOTE | 2024-04-16 09:13 | HO.PM.IMPN ---
Subjective Subjective Date of Service: 04/16/24 Interval History: anasarca somewhat better, having 4-5bm/day Physical Exam Vital Signs: Vital Signs: Last Vital Signs Temp 97.1 F 04/16/24 07:37 Pulse 93 04/16/24 07:37 Resp 14 04/16/24 07:37 BP 103/62 04/16/24 07:37 Pulse Ox 92 04/16/24 07:37 O2 Del Method Room Air 04/16/24 07:37 O2 Flow Rate 2.0 04/09/24 11:29 BMI result Body Mass Index 24.7 Alert oriented x3, less jaundiced than previous Abdomen still somewhat distended but soft, positive bowel sounds Lungs clear Objective Data Active Medications Acetaminophen (Acetaminophen 325 Mg Tablet) 650 mg PO Q6H PRN PRN Reason: Pain, Mild 1-3,fever,headache Last Admin: 04/05/24 08:56 Dose: 650 mg Documented By: LEO Atenolol (Atenolol 25 Mg Tablet) 25 mg PO DAILY [facility]; Protocol Last Admin: 04/16/24 08:06 Dose: 25 mg Documented By: SAMM Buprenorphine/Naloxone (Buprenorphine/Naloxone 2/0.5mg Film) 1 film SUBLINGUAL DAILY@1000 [facility] Last Admin: 04/15/24 10:44 Dose: 1 film Documented By: MARTA Calcium Carbonate (Calcium Carbonate 750 Mg Tab.Chew) 750 mg PO Q4H PRN PRN Reason: Heartburn Last Admin: 04/04/24 16:51 Dose: 750 mg Documented By: HARESH Folic Acid (Folic Acid 1 Mg Tablet) 1 mg PO DAILY [facility] Last Admin: 04/16/24 08:06 Dose: 1 mg Documented By: SAMM Furosemide (Furosemide 40 Mg Tablet) 40 mg PO DAILY [facility]; Protocol Last Admin: 04/07/24 08:36 Dose: 40 mg Documented By: LILLIAN Comments: Gabapentin (Gabapentin 100 Mg Capsule) 100 mg PO TID [facility] Last Admin: 04/16/24 08:06 Dose: 100 mg Documented By: SAMM Lactulose (Lactulose 20 Gm/30 Ml Solution) 20 gm PO TID@1000,1500,2100 [facility] Last Admin: 04/15/24 20:11 Dose: 20 gm Documented By: CARMITA Magnesium Hydroxide (Milk Of Magnesia 30 Ml Oral.Susp) 30 ml PO DAILY PRN PRN Reason: Constipation Magnesium Oxide (Magnesium Oxide 400 Mg Tablet) 400 mg PO BIDPC [facility] Last Admin: 04/16/24 08:06 Dose: 400 mg Documented By: SAMM Multivitamins/Vitamin C (Multivitamin Tablet) 1 tab PO DAILY [facility] Last Admin: 04/16/24 08:06 Dose: 1 tab Documented By: SAMM Naloxone HCl (Naloxone Hcl 0.4 Mg/Ml Vial) 0.04 mg IVPUSH Q5M PRN PRN Reason: Excessive sedation or RR < 8 Nicotine (Nicotine 21 Mg Patch.Td24) 21 mg TRANSDERMA DAILY [facility] Last Admin: 04/16/24 08:05 Dose: 21 mg Documented By: SAMM Omeprazole (Omeprazole 20 Mg Capsule.Dr) 20 mg PO DAILY [facility] Last Admin: 04/16/24 08:06 Dose: 20 mg Documented By: SAMM Ondansetron HCl (Ondansetron Hcl 4 Mg/2 Ml Vial) 4 mg IVPUSH Q6H PRN PRN Reason: Nausea and Vomiting Last Admin: 04/04/24 08:57 Dose: 4 mg Documented By: HARESH Sodium Chloride (0.9 % Sodium Chloride Flush 3 Ml Syringe) 3 ml IVFLUSH QSHIFT [facility] Last Admin: 04/16/24 08:07 Dose: 3 ml Documented By: SAMM Spironolactone (Spironolactone 25 Mg Tablet) 50 mg PO DAILY [facility]; Protocol Last Admin: 04/16/24 08:06 Dose: 50 mg Documented By: SAMM Thiamine HCl (Thiamine Hcl 100 Mg Tablet) 100 mg PO DAILY [facility] Last Admin: 04/16/24 08:07 Dose: 100 mg Documented By: SAMM Labs 04/16/24 05:40 04/16/24 05:40 Labs: Laboratory Results - last 24 hr 04/16/24 05:40 MCV 94.8 MCH 32.8 MCHC 34.6 RDW 13.4 Plt Count 116 L MPV 12.2 Absolute Nucleated RBC 0.000 Nucleated RBC % (auto) 0.0 Anion Gap 10 L Estim Creat Clear Calc 295.1 Estimated GFR > 60 Random Glucose 92 Calcium 7.7 L Phosphorus 3.6 Magnesium 1.6 Total Bilirubin 2.7 H Direct Bilirubin 1.4 H AST 77 H ALT 22 Alkaline Phosphatase 133 H Total Protein 5.1 L Albumin 2.8 L Assessment and Plan (1) Ileus: Status: Acute (2) Cirrhosis: Status: Acute Plan 34M PMH alcohol dependence with alcoholic cirrhosis, mood disorder, cholelithiasis presented with altered mental status Abdominal pain and distention 2/[address] abdomen showed Partial/intermittent distal small bowel obstruction. Hepatosplenomegaly and lymphadenopathy. Ascites, moderate volume. Probable cholelithiasis. Paracentesis attempted but minimal fluid, not consistent with SBP Surgery team following , no intervention planned Had 2 doses of Neostigmine 1st dose 04/07, and 5mg on 04/08 KUB suggested Ileus 04/07 Started PPN 04/07 GI did colonoscopy with fair response as distention improved, having more BM advanced to solids and tolerating Acute metabolic encephalopathy due to acute hepatic encephalopathy due to alcohol dependence with alcoholic cirrhosis improving Lactulose continue rifaximin Goal 2-3 bowel movements per day anasarca due to cirrhosis s/p albumin and lasix Pneumonia CT scan showed bilateral basal infiltrates more on Right completed 7 day course of Zosyn increase physical activity Physical deconditioning PT rec STR hallucinations improved Psych appreciated improved with several days of invega, now discontinued Acute hypomagnesemia replacement given Hyperglycemia a1c - 4.3, Resolved Cholelithiasis Surgery appreciated, conservative care History of DVT Completed course of Eliquis, Eliquis discontinued Mood disorder Ativan p.r.n. DVT prophylaxis mechanical due to elevated INR Full code reason for continued hospitalization: safe dispo Quality Stroke Does the patient have a stroke diagnosis?: No VTE Prior VTE?: Yes VTE Risk Level:: Medical - moderate - high VTE Device Contraindication: N/A - Device Ordered VTE Drug Contraindication: Treatment Not Tolerated
[2024-04-16] MEDS: Buprenorphine/Naloxone 2/0.5mg FILM 1 FILM SUBLINGUAL (11:02)
[2024-04-16] MEDS: Lactulose 20 GM/30 ML SOLUTION PO ×3 (11:02→21:57)
--- NOTE | 2024-04-16 14:22 | MHC.CM.PN ---
Patient continues to gain strength. Insurance authorization is pending for admit to [facility]. The Recovery nurse is following the patient. DP STR @ [facility] via BLS. Ultimate goal is a program set up be the Recovery team, once the patient is stronger.
--- NOTE | 2024-04-16 14:54 | MHC.RECOVRN ---
Met with pt in 369 to follow up and provide support. Pt sitting in bed, awake, alert, easily engages in conversation. Discussed dispo, pt advocating for [facility] to continue PT. Pt reports he does not feel ready or strong enough and would still like to go. Discussed plan if [facility] does not accept pt, pt reports he is unsure if he would like to go to [facility] but would like to send a referral to [facility]. Pt also reports he is able to stay with a friend after discharge if needed. Pt denies other questions or concerns. Discussed with CM as well as Ese Guidry APRN.
[2024-04-16 15:57] VITALS: BP 115/69; PULSE 84; RESP 16; TEMP 36.9; O2SAT 95
--- NOTE | 2024-04-16 16:15 | MHC.RECOVRN ---
Pts CSS/TSS referral has been sent to [facility].
[2024-04-16 19:24] VITALS: BP 119/70; PULSE 101; RESP 18; TEMP 37.4; O2SAT 93
[2024-04-16] MEDS: Acetaminophen 325 MG TABLET 650 MG PO (22:01)
[2024-04-16] MEDS: Zolpidem Tartrate 5 MG TABLET PO (23:17)
[2024-04-17] VITALS (7 sets, daily range): BP systolic 101–117; BP diastolic 58–65; PULSE 90–101; RESP 16–20; TEMP 36.1–36.6; O2SAT 90–96
[2024-04-17 07:55] LABS: Albumin Level 2.7 g/dL (3.5-5.0); Anion Gap 9 (12-20); Blood Urea Nitrogen < 3 mg/dL (9-16); Calcium 7.8 mg/dL (8.4-10.2); Carbon Dioxide 26 mmol/L (22-29); Chloride 107 mmol/L (96-108); Creatinine Clr Calc Pharmacy 257.4; Estimated Glomerular Filt Rate > 60; Glucose Random 102 mg/dL (60-115); Magnesium 1.6 mg/dL (1.6-2.6); Potassium 3.2 mmol/L (3.3-5.1); Sodium 139 mmol/L (135-145)
[2024-04-17] MEDS: Nicotine 21 MG PATCH.TD24 TRANSDERMA (08:49)
[2024-04-17] MEDS: atenoloL 25 MG TABLET PO (08:50)
[2024-04-17] MEDS: Folic Acid 1 MG TABLET PO (08:50)
[2024-04-17] MEDS: Gabapentin 100 MG CAPSULE PO ×3 (08:50→20:37)
[2024-04-17] MEDS: Magnesium Oxide 400 MG TABLET PO ×2 (08:50→16:06)
[2024-04-17] MEDS: Multivitamin TABLET 1 TAB PO (08:50)
[2024-04-17] MEDS: Thiamine HCL 100 MG TABLET PO (08:50)
[2024-04-17] MEDS: Spironolactone 25 MG TABLET 50 MG PO (08:51)
[2024-04-17] MEDS: Omeprazole 20 MG CAPSULE.DR PO (08:51)
[2024-04-17] MEDS: Buprenorphine/Naloxone 2/0.5mg FILM 1 FILM SUBLINGUAL (08:52)
[2024-04-17] MEDS: 0.9 % Sodium Chloride Flush 3 ML SYRINGE IVFLUSH ×3 (08:52→20:39)
--- NOTE | 2024-04-17 09:02 | HO.PM.IMPN ---
Subjective Subjective Date of Service: 04/17/24 Interval History: 3 bms yesterday Physical Exam Vital Signs: Vital Signs: Last Vital Signs Temp 97.8 F 04/17/24 07:26 Pulse 94 04/17/24 07:26 Resp 16 04/17/24 07:26 BP 101/58 L 04/17/24 08:51 Pulse Ox 90 L 04/17/24 07:26 O2 Del Method Room Air 04/17/24 07:26 O2 Flow Rate 2.0 04/09/24 11:29 BMI result Body Mass Index 24.7 Alert oriented x3, less jaundiced than previous Abdomen still somewhat distended but soft, positive bowel sounds Lungs clear Objective Data Active Medications Acetaminophen (Acetaminophen 325 Mg Tablet) 650 mg PO Q6H PRN PRN Reason: Pain, Mild 1-3,fever,headache Last Admin: 04/16/24 22:01 Dose: 650 mg Documented By: RAYMOND Atenolol (Atenolol 25 Mg Tablet) 25 mg PO DAILY [facility]; Protocol Last Admin: 04/17/24 08:50 Dose: 25 mg Documented By: ALBINO Buprenorphine/Naloxone (Buprenorphine/Naloxone 2/0.5mg Film) 1 film SUBLINGUAL DAILY@1000 [facility] Last Admin: 04/17/24 08:52 Dose: 1 film Documented By: ALBINO Calcium Carbonate (Calcium Carbonate 750 Mg Tab.Chew) 750 mg PO Q4H PRN PRN Reason: Heartburn Last Admin: 04/04/24 16:51 Dose: 750 mg Documented By: HARESH Folic Acid (Folic Acid 1 Mg Tablet) 1 mg PO DAILY [facility] Last Admin: 04/17/24 08:50 Dose: 1 mg Documented By: ALBINO Furosemide (Furosemide 40 Mg Tablet) 40 mg PO DAILY [facility]; Protocol Last Admin: 04/07/24 08:36 Dose: 40 mg Documented By: LILLIAN Comments: Gabapentin (Gabapentin 100 Mg Capsule) 100 mg PO TID [facility] Last Admin: 04/17/24 08:50 Dose: 100 mg Documented By: ALBINO Lactulose (Lactulose 20 Gm/30 Ml Solution) 20 gm PO TID@1000,1500,2100 [facility] Last Admin: 04/16/24 21:57 Dose: 20 gm Documented By: RAYMOND Magnesium Hydroxide (Milk Of Magnesia 30 Ml Oral.Susp) 30 ml PO DAILY PRN PRN Reason: Constipation Magnesium Oxide (Magnesium Oxide 400 Mg Tablet) 400 mg PO BIDPC [facility] Last Admin: 04/17/24 08:50 Dose: 400 mg Documented By: ALBINO Multivitamins/Vitamin C (Multivitamin Tablet) 1 tab PO DAILY [facility] Last Admin: 04/17/24 08:50 Dose: 1 tab Documented By: ALBINO Naloxone HCl (Naloxone Hcl 0.4 Mg/Ml Vial) 0.04 mg IVPUSH Q5M PRN PRN Reason: Excessive sedation or RR < 8 Nicotine (Nicotine 21 Mg Patch.Td24) 21 mg TRANSDERMA DAILY [facility] Last Admin: 04/17/24 08:49 Dose: 21 mg Documented By: ALBINO Omeprazole (Omeprazole 20 Mg Capsule.) 20 mg PO DAILY [facility] Last Admin: 04/17/24 08:51 Dose: 20 mg Documented By: ALBINO Ondansetron HCl (Ondansetron Hcl 4 Mg/2 Ml Vial) 4 mg IVPUSH Q6H PRN PRN Reason: Nausea and Vomiting Last Admin: 04/04/24 08:57 Dose: 4 mg Documented By: HARESH Sodium Chloride (0.9 % Sodium Chloride Flush 3 Ml Syringe) [facility] Last Admin: 04/17/24 08:52 Dose: 3 ml Documented By: ALBINO Spironolactone (Spironolactone 25 Mg Tablet) 50 mg PO DAILY [facility]; Protocol Last Admin: 04/17/24 08:51 Dose: 50 mg Documented By: ALIBNO Thiamine HCl (Thiamine Hcl 100 Mg Tablet) 100 mg PO DAILY [facility] Last Admin: 04/17/24 08:50 Dose: 100 mg Documented By: ALBINO Zolpidem Tartrate (Zolpidem Tartrate 5 Mg Tablet) 5 mg PO BEDTIME PRN PRN Reason: Insomnia Last Admin: 04/16/24 23:17 Dose: 5 mg Documented By: RAYMOND Labs 04/16/24 05:40 04/17/24 05:35 Labs: Laboratory Results - last 24 hr 04/17/24 05:35 Hold Purple Top SEE NOTE Anion Gap 9 L Estim Creat Clear Calc 257.4 Estimated GFR > 60 Random Glucose 102 Calcium 7.8 L Phosphorus 4.0 Magnesium 1.6 Albumin 2.7 L Assessment and Plan (1) Ileus: Status: Acute (2) Cirrhosis: Status: Acute Plan 34M PMH alcohol dependence with alcoholic cirrhosis, mood disorder, cholelithiasis presented with altered mental status Abdominal pain and distention 2/[address] abdomen showed Partial/intermittent distal small bowel obstruction. Hepatosplenomegaly and lymphadenopathy. Ascites, moderate volume. Probable cholelithiasis. Paracentesis attempted but minimal fluid, not consistent with SBP Surgery team following , no intervention planned Had 2 doses of Neostigmine 1st dose 04/07, and 5mg on 04/08 KUB suggested Ileus 04/07 GI did colonoscopy with fair response as distention improved, having more BM advanced to solids and tolerating Acute metabolic encephalopathy due to acute hepatic encephalopathy due to alcohol dependence with alcoholic cirrhosis improving Lactulose continue rifaximin Goal 2-3 bowel movements per day anasarca due to cirrhosis s/p albumin and lasix, improving Pneumonia CT scan showed bilateral basal infiltrates more on Right completed 7 day course of Zosyn increase physical activity Physical deconditioning PT rec STR hallucinations improved Psych appreciated improved with several days of invega, now discontinued Acute hypomagnesemia replacement given Hyperglycemia a1c - 4.3, Resolved Cholelithiasis Surgery appreciated, conservative care History of DVT Completed course of Eliquis, Eliquis discontinued Mood disorder Ativan p.r.n. DVT prophylaxis mechanical due to elevated INR Full code reason for continued hospitalization: safe dispo Quality Stroke Does the patient have a stroke diagnosis?: No VTE Prior VTE?: Yes VTE Risk Level:: Medical - moderate - high VTE Device Contraindication: N/A - Device Ordered VTE Drug Contraindication: Treatment Not Tolerated
[2024-04-17] MEDS: Lactulose 20 GM/30 ML SOLUTION PO ×3 (09:41→20:37)
[2024-04-17] MEDS: Potassium Chloride ER 20 MEQ TAB.ER.PRT 40 MEQ PO (11:07)
--- NOTE | 2024-04-17 13:44 | MHC.CM.PN ---
CM CONTINUES TO AWAIT INSURANCE AUTH FROM [facility]. PT/RN UPDATED. CM CONTINUES TO FOLLOW FOR AUTH TO ADMIT
[2024-04-17] MEDS: Zolpidem Tartrate 5 MG TABLET PO (20:39)
[2024-04-18 03:54] VITALS: BP 111/56; PULSE 99; RESP 16; TEMP 36.1; O2SAT 93
[2024-04-18 07:54] VITALS: BP 108/57; PULSE 99; RESP 16; TEMP 36.8; O2SAT 92
[2024-04-18] MEDS: 0.9 % Sodium Chloride Flush 3 ML SYRINGE IVFLUSH ×3 (08:36→19:39)
[2024-04-18] MEDS: Nicotine 21 MG PATCH.TD24 TRANSDERMA (08:36)
[2024-04-18] MEDS: Gabapentin 100 MG CAPSULE PO ×3 (08:37→19:39)
[2024-04-18] MEDS: Omeprazole 20 MG CAPSULE.DR PO (08:37)
[2024-04-18] MEDS: Magnesium Oxide 400 MG TABLET PO ×2 (08:37→16:56)
[2024-04-18] MEDS: Buprenorphine/Naloxone 2/0.5mg FILM 1 FILM SUBLINGUAL (08:37)
[2024-04-18] MEDS: Spironolactone 25 MG TABLET 50 MG PO (08:37)
[2024-04-18] MEDS: Folic Acid 1 MG TABLET PO (08:37)
[2024-04-18] MEDS: Multivitamin TABLET 1 TAB PO (08:37)
[2024-04-18] MEDS: atenoloL 25 MG TABLET PO (08:37)
[2024-04-18] MEDS: Thiamine HCL 100 MG TABLET PO (08:37)
[2024-04-18] MEDS: Lactulose 20 GM/30 ML SOLUTION PO ×3 (08:41→19:39)
--- NOTE | 2024-04-18 09:00 | PC.NURSE ---
Pt req Medication this AM prior to 10AM
--- NOTE | 2024-04-18 10:26 | HO.PM.IMPN ---
Subjective Subjective Date of Service: 04/18/24 Interval History: Stable Physical Exam Vital Signs: Vital Signs: Last Vital Signs Temp 98.3 F 04/18/24 07:54 Pulse 99 04/18/24 07:54 Resp 16 04/18/24 07:54 BP 108/57 L 04/18/24 07:54 Pulse Ox 92 04/18/24 07:54 O2 Del Method Room Air 04/18/24 07:54 O2 Flow Rate 2.0 04/09/24 11:29 BMI result Body Mass Index 24.7 Alert oriented x3, jaundice resolved, no acute distress, minimal edema, abdomen soft and nondistended Lungs clear Objective Data Active Medications Acetaminophen (Acetaminophen 325 Mg Tablet) 650 mg PO Q6H PRN PRN Reason: Pain, Mild 1-3,fever,headache Last Admin: 04/16/24 22:01 Dose: 650 mg Documented By: RAYMOND Atenolol (Atenolol 25 Mg Tablet) 25 mg PO DAILY [facility]; Protocol Last Admin: 04/18/24 08:37 Dose: 25 mg Documented By: TERI Buprenorphine/Naloxone (Buprenorphine/Naloxone 2/0.5mg Film) 1 film SUBLINGUAL DAILY@1000 [facility] Last Admin: 04/18/24 08:37 Dose: 1 film Documented By: TERI Calcium Carbonate (Calcium Carbonate 750 Mg Tab.Chew) 750 mg PO Q4H PRN PRN Reason: Heartburn Last Admin: 04/04/24 16:51 Dose: 750 mg Documented By: HARESH Folic Acid (Folic Acid 1 Mg Tablet) 1 mg PO DAILY [facility] Last Admin: 04/18/24 08:37 Dose: 1 mg Documented By: TERI Furosemide (Furosemide 40 Mg Tablet) 40 mg PO DAILY [facility]; Protocol Last Admin: 04/07/24 08:36 Dose: 40 mg Documented By: LILLIAN Comments: Gabapentin (Gabapentin 100 Mg Capsule) 100 mg PO TID [facility] Last Admin: 04/18/24 08:37 Dose: 100 mg Documented By: TERI Lactulose (Lactulose 20 Gm/30 Ml Solution) 20 gm PO TID@1000,1500,2100 [facility] Last Admin: 04/18/24 08:41 Dose: 20 gm Documented By: TERI Magnesium Hydroxide (Milk Of Magnesia 30 Ml Oral.Susp) 30 ml PO DAILY PRN PRN Reason: Constipation Magnesium Oxide (Magnesium Oxide 400 Mg Tablet) 400 mg PO BIDPC [facility] Last Admin: 04/18/24 08:37 Dose: 400 mg Documented By: TERI Multivitamins/Vitamin C (Multivitamin Tablet) 1 tab PO DAILY [facility] Last Admin: 04/18/24 08:37 Dose: 1 tab Documented By: TERI Naloxone HCl (Naloxone Hcl 0.4 Mg/Ml Vial) 0.04 mg IVPUSH Q5M PRN PRN Reason: Excessive sedation or RR < 8 Nicotine (Nicotine 21 Mg Patch.Td24) 21 mg TRANSDERMA DAILY [facility] Last Admin: 04/18/24 08:36 Dose: 21 mg Documented By: TERI Omeprazole (Omeprazole 20 Mg Capsule.Dr) 20 mg PO DAILY [facility] Last Admin: 04/18/24 08:37 Dose: 20 mg Documented By: TERI Ondansetron HCl (Ondansetron Hcl 4 Mg/2 Ml Vial) 4 mg IVPUSH Q6H PRN PRN Reason: Nausea and Vomiting Last Admin: 04/04/24 08:57 Dose: 4 mg Documented By: GRAZIC Sodium Chloride (0.9 % Sodium Chloride Flush 3 Ml Syringe) 3 ml IVFLUSH QSHIFT [facility] Last Admin: 04/18/24 08:36 Dose: 3 ml Documented By: TERI Spironolactone (Spironolactone 25 Mg Tablet) 50 mg PO DAILY [facility]; Protocol Last Admin: 04/18/24 08:37 Dose: 50 mg Documented By: TERI Thiamine HCl (Thiamine Hcl 100 Mg Tablet) 100 mg PO DAILY [facility] Last Admin: 04/18/24 08:37 Dose: 100 mg Documented By: TERI Zolpidem Tartrate (Zolpidem Tartrate 5 Mg Tablet) 5 mg PO BEDTIME PRN PRN Reason: Insomnia Last Admin: 04/17/24 20:39 Dose: 5 mg Documented By: CARTYA Labs 04/16/24 05:40 04/17/24 05:35 Assessment and Plan (1) Ileus: Status: Acute (2) Cirrhosis: Status: Acute Plan 34M PMH alcohol dependence with alcoholic cirrhosis, mood disorder, cholelithiasis presented with altered mental status Abdominal pain and distention 2/[address] abdomen showed Partial/intermittent distal small bowel obstruction. Hepatosplenomegaly and lymphadenopathy. Ascites, moderate volume. Probable cholelithiasis. Paracentesis attempted but minimal fluid, not consistent with SBP Surgery team following , no intervention planned Had 2 doses of Neostigmine 1st dose 04/07, and 5mg on 04/08 KUB suggested Ileus 04/07 GI did colonoscopy with fair response as distention improved, having more BM advanced to solids and tolerating Acute metabolic encephalopathy due to acute hepatic encephalopathy due to alcohol dependence with alcoholic cirrhosis improving Lactulose continue rifaximin Goal 2-3 bowel movements per day anasarca due to cirrhosis s/p albumin and lasix, improving Pneumonia CT scan showed bilateral basal infiltrates more on Right completed 7 day course of Zosyn increase physical activity Physical deconditioning PT rec STR hallucinations improved Psych appreciated improved with several days of invega, now discontinued Acute hypomagnesemia replacement given Hyperglycemia a1c - 4.3, Resolved Cholelithiasis Surgery appreciated, conservative care History of DVT Completed course of Eliquis, Eliquis discontinued Mood disorder Ativan p.r.n. DVT prophylaxis mechanical due to elevated INR Full code reason for continued hospitalization: safe dispo Quality Stroke Does the patient have a stroke diagnosis?: No VTE Prior VTE?: Yes VTE Risk Level:: Medical - moderate - high VTE Device Contraindication: N/A - Device Ordered VTE Drug Contraindication: Treatment Not Tolerated
--- NOTE | 2024-04-18 10:27 | PM.DS ---
DS: Providers Provider Date of Service: 04/18/24 <Chintan Tanner MD - Last Filed: 04/18/24 11:39> 04/19/24 <SHANTAL Parekh - Last Filed: 04/19/24 15:28> Date of admission: 04/01/24 09:27 <Chintan Tanner MD - Last Filed: 04/18/24 11:39> Date of discharge: 04/18/24 <Chintan Tanner MD - Last Filed: 04/18/24 11:39> 04/19/24 <SHANTAL Parekh - Last Filed: 04/19/24 15:28> Primary care physician: Zander Coughlin MD <Chintan Tanner MD - Last Filed: 04/18/24 11:39> Consults: 04/01/24 09:29 Consult to General Surgery [place]ine [place]ing [place] [facility] [facility] Reason for consultation: cholilithiasis 04/02/24 08:54 Consult to Psychiatry Routine Consulting Provider[place] [facility] [place] [facility] Reason for consultation: hallucinations disproportionate to level of hepatic encephalopathy 04/05/24 08:09 Consult to Gastroenterology Routine Consulting Provider: Nikso Barraza Reason for consultation: Evaluation for Transplant, Cirrhosis w encephalopathy 04/10/24 03:35 Consult to Wound Care Routine Reason for consultation: blanchable redness to buttocks 04/11/24 01:49 Consult to Wound Care Routine Reason for consultation: blanchable redness to coccyx 04/11/24 13:50 Consult to Care Team Routine Comment: Reason for consultation: etoh <Chintan Tanner MD - Last Filed: 04/18/24 11:39> Attending physician on discharge: Evens Mlapah <SHANTAL Parekh - Last Filed: 04/19/24 15:28> Discharging clinician: Michelle Sanchez <SHANTAL Parekh - Last Filed: 04/19/24 15:28> DS: Diagnosis Discharge Diagnosis (1) Ileus: Status: Acute <Chintan Tanner MD - Last Filed: 04/18/24 11:39> (2) Cirrhosis: Status: Acute <Chintan Tanner MD - Last Filed: 04/18/24 11:39> DS: Summary Hospital Course Hospital Course: from initial hpi: 34M PMH alcohol dependence with alcoholic cirrhosis, mood disorder, cholelithiasis presented with altered mental status. Patient had been in the ED day prior to presentation for abdominal pain and distention due to symptomatic ascites. Underwent paracentesis which was negative for SBP, had relief. Went home. Then girlfriend brought patient to hospital for altered mental status, hallucination. Ammonia 67, patient reports noncompliance with lactulose. Also noted to have hyperglycemia of 242. Patient denies alcohol intake over last 3 weeks. hospital course: Patient was admitted for acute metabolic encephalopathy due to acute hepatic encephalopathy due to alcohol dependence with alcoholic cirrhosis. He was treated with lactulose and rifaximin and is now having 2-3 bowel movements per day and mental status is back to baseline. Patient was also noted to have some delusions when his hepatic encephalopathy seemed to be resolved. Was seen by Psychiatry and received several days of Invega, recommended to then discontinue Invega. Patient has hallucinations have not recurred. For anasarca due to cirrhosis patient received albumin and Lasix with significant improvement. For abdominal pain and distention secondary to ileus CT abdomen initially showed intermittent distal small-bowel obstruction but seen by surgery and felt this is more likely ileus. Received neostigmine and ileus resolved. Patient is having bowel movements and tolerating solids. Course complicated by hypomagnesemia which was replaced. Also noted to have some hyperglycemia on admission, however, A1c was 4.3 and hyperglycemia resolved. For cholelithiasis was seen by surgery who recommended conservative care, unlikely that this is causing abdominal pain. For history of DVT patient has already completed course of Eliquis. Due to physical conditioning was seen by physical therapy recommended short-term rehab to which patient will be discharged, expected to require less than 30 days. <Chintan Tanner MD - Last Filed: 04/18/24 11:39> Time Attestation Discharge Coordination Time (in mins): 36 <SHANTAL Parekh - Last Filed: 04/19/24 15:28> Quality: Safe Use of Opioids Does Pt have an Active Cancer Diagnosis on the Problem List?: No <SHANTAL Parekh - Last Filed: 04/19/24 15:28> Quality: Stroke Does the patient have a stroke diagnosis?: No <SHANTAL Parekh - Last Filed: 04/19/24 15:28> Physical Exam Vital Signs: Vital Signs: Last Vital Signs Temp 98.3 F 04/18/24 07:54 Pulse 99 04/18/24 07:54 Resp 16 04/18/24 07:54 BP 108/57 L 04/18/24 07:54 Pulse Ox 92 04/18/24 07:54 O2 Del Method Room Air 04/18/24 07:54 O2 Flow Rate 2.0 04/09/24 11:29 BMI result Body Mass Index 24.7 <Chintan Tanner MD - Last Filed: 04/18/24 11:39> Alert oriented x3, jaundice resolved, no acute distress, minimal edema, abdomen soft and nondistended Lungs clear <Chintan Tanner MD - Last Filed: 04/18/24 11:39> Const: General: alert, awake and Physically active <SHANTAL Parekh - Last Filed: 04/19/24 15:28> Orientation/consciousness: patient oriented x3 <SHANTAL Parekh - Last Filed: 04/19/24 15:28> Resp: Effort & Inspection: no respiratory distress and no use of accessory muscles <SHANTAL Parekh - Last Filed: 04/19/24 15:28> Cardio: Rate: regular rate <SHANTAL Parekh - Last Filed: 04/19/24 15:28> Neuro: General: patient oriented x3, moves all extremities and CN's II-XI intact bilaterally <SHANTAL Parekh - Last Filed: 04/19/24 15:28> DS: Data Data Completed and Pending Completed studies during hospitalization [Text1]: Procedures Detoxification Services for Substance Abuse Treatment (11/28/23) <Chintan Tanner MD - Last Filed: 04/18/24 11:39> Discharge Plan Discharge Anticipated Discharge Date/Time: 04/19/24 15:08 <Chintan Tanner MD - Last Filed: 04/18/24 11:39> Patient Disposition: Xfer SNF <Chintan Tanner MD - Last Filed: 04/18/24 11:39> Discharge Diagnosis: etoh cirrhosis, encephalopathy <Chintan Tanner MD - Last Filed: 04/18/24 11:39> etoh cirrhosis, encephalopathy <SHANTAL Parekh - Last Filed: 04/19/24 15:28> Referrals: [facility] [Other] - 1 Week (transfer for short term rehab) Nikos Barraza MD [Physician] - 1 Week Zander Coughlin MD [Primary Care Provider] - 1 Week <Chintan Tanner MD - Last Filed: 04/18/24 11:39> Discharge Medications: New multivitamin [Daily-Gerri] Tablet 1 tab PO DAILY Qty: 90 0RF furosemide 40 mg Tablet 40 mg PO DAILY Qty: 0 0RF Protocol: Hold for SBP< HOLD for SBP < : 90 spironolactone 25 mg Tablet 50 mg PO DAILY Qty: 0 0RF Protocol: Hold for SBP< HOLD for SBP < : 90 magnesium oxide 400 mg (241.3 mg magnesium) Tablet 400 mg PO BIDPC Qty: 0 0RF nicotine 21 mg/24 hr Patch 24 Hour 21 mg transdermal DAILY Qty: 0 0RF folic acid 1 mg Tablet 1 mg PO DAILY Qty: 0 0RF lactulose 20 gram/30 mL Solution 20 g PO TID@1000,1500,2100 Qty: 0 0RF thiamine mononitrate (vit B1) 100 mg Tablet 100 mg PO DAILY Qty: 0 0RF rifaximin 550 mg tablet 550 mg PO BID Qty: 180 0RF buprenorphine-naloxone [Suboxone] 2-0.5 mg Film 1 film sublingual DAILY@1000 Qty: 0 0RF Continued atenolol 25 mg tablet 25 mg PO DAILY Qty: 90 0RF bisacodyl [Dulcolax (bisacodyl)] 5 mg tablet,delayed release (DR/EC) 10 mg PO BEDTIME PRN (Reason: Constipation) gabapentin 100 mg capsule 100 mg PO TID 30 Days Qty: 90 4RF omeprazole 20 mg capsule,delayed release(DR/EC) 20 mg PO DAILY Qty: 90 3RF Discontinued lorazepam 1 mg tablet 1 mg PO TID PRN (Reason: anxiety) 30 Days Qty: 90 0RF buprenorphine-naloxone 2-0.5 mg film 1 film sublingual DAILY <Chintan Tanner MD - Last Filed: 04/18/24 11:39> Discharge Orders: Discharge Order (Routine); Ordered 04/19/24 Ordered By: Michelle Sanchez <Chintan Tanner MD - Last Filed: 04/18/24 11:39> Diet: Advance to usual diet <Chintan Tanner MD - Last Filed: 04/18/24 11:39> Advance to usual diet <SHANTAL Parekh - Last Filed: 04/19/24 15:28> Activity on Discharge: As tolerated <Chintan Tanner MD - Last Filed: 04/18/24 11:39> As tolerated <SHANTAL Parekh - Last Filed: 04/19/24 15:28> Stand Alone Forms: Patient Portal Discharge page <Chintan Tanner MD - Last Filed: 04/18/24 11:39> Print Language: Indonesian <Chintan Tanner MD - Last Filed: 04/18/24 11:39> Care Plan Goals: Manage cirrhosis <Chintan Tanner MD - Last Filed: 04/18/24 11:39> Health Concerns: Alcoholic cirrhosis <Chintan Tanner MD - Last Filed: 04/18/24 11:39> Plan of Treatment: Continue lactulose and rifaximin, goal of 2-3 bowel movements per day, continue lactulose and Aldactone, monitor labs, continue vitamins, plan for rehab outpatient follow up with GI continue suboxone as rx <Chintan Tanner MD - Last Filed: 04/18/24 11:39> Assessment: see above <Chintan Tanner MD - Last Filed: 04/18/24 11:39> Patient Instructions: Cirrhosis (DC) <Chintan Tanner MD - Last Filed: 04/18/24 11:39>
[2024-04-18 14:55] VITALS: BP 110/78; PULSE 100; RESP 16; TEMP 36.6; O2SAT 96
--- NOTE | 2024-04-18 15:14 | MHC.CM.PN ---
Addendum entered by Latha Sow 04/18/24 16:17: [facility] WILL NOW NOT ACCEPT PT WITHOUT A STD CONVERSION, CM EXPLAINED THE PT WAS NOT ELIGIBLE AND WAS ACCEPTED BY THEM UNDER HIS [employer]LLSENSE. [facility] HAS ACCEPTED PENDING AUTH AND PT IS AGREEABLE. IS AWARE. AUTH PROCESS HAS BEEN STARTED AND ANTICIPATE WILL BE OBTAINED BY 04/19. Original Note: CM CONTINUES TO AWAIT INSURANCE AUTH FROM [facility]. THE CENTER THEN CONTACTED THIS CM LOOKING FOR A BACK UP [place] PLAN SHOULD [employer] CUT HIM? THIS CM EXPLAINED THERE IN NO OTHER PLAN THAN [employer] AND NO RESPONSE FROM [facility]. MD/RN UPDATED. PT UPDATED AND NEW C[facility] SOUGHT [facility], REFERRALS UPDATED. CM WILL CONTINUE TO FOLLOW.
[2024-04-18 19:29] VITALS: BP 110/62; PULSE 102; RESP 18; TEMP 37; O2SAT 93
[2024-04-18] MEDS: Zolpidem Tartrate 5 MG TABLET PO (23:05)
[2024-04-19 03:25] VITALS: BP 121/60; PULSE 98; RESP 16; TEMP 36.9; O2SAT 97
[2024-04-19 07:34] VITALS: BP 103/56; PULSE 99; RESP 16; TEMP 36.9; O2SAT 92
[2024-04-19] MEDS: 0.9 % Sodium Chloride Flush 3 ML SYRINGE IVFLUSH ×2 (09:14→14:38)
[2024-04-19] MEDS: Nicotine 21 MG PATCH.TD24 TRANSDERMA (09:15)
[2024-04-19] MEDS: Lactulose 20 GM/30 ML SOLUTION PO ×2 (09:15→14:38)
[2024-04-19] MEDS: Multivitamin TABLET 1 TAB PO (09:16)
[2024-04-19] MEDS: Gabapentin 100 MG CAPSULE PO ×2 (09:16→14:38)
[2024-04-19] MEDS: Spironolactone 25 MG TABLET 50 MG PO (09:16)
[2024-04-19] MEDS: Folic Acid 1 MG TABLET PO (09:17)
[2024-04-19] MEDS: atenoloL 25 MG TABLET PO (09:17)
[2024-04-19] MEDS: Thiamine HCL 100 MG TABLET PO (09:17)
[2024-04-19] MEDS: Omeprazole 20 MG CAPSULE.DR PO (09:17)
[2024-04-19] MEDS: Magnesium Oxide 400 MG TABLET PO ×2 (09:17→17:17)
[2024-04-19] MEDS: Buprenorphine/Naloxone 2/0.5mg FILM 1 FILM SUBLINGUAL (09:18)
--- NOTE | 2024-04-19 15:03 | MHC.CM.PN ---
DP: PT HAS BEEN MEDICALLY CLEARED FOR DC TO [facility] FOR STR. CENTER HAS OBTAINED INSURANCE AUTH TO ADMIT. RN UPDATED. BLS TRANSPORT BOOKED FOR 6 PM [facility]IA [facility]. PT WILL NOTIFY HCP/MOTHER ABOUT THE TRANSFER.
--- NOTE | 2024-04-19 15:46 | MHC.RECOVRN ---
Met with pt to follow up and provide support. Pt laying in bed, reports he is very tired because he didn't go to bed until midnight last night. Pt aware referrals for [facility] are still active if he wishes to pursue treatment after STR. Pt denies other questions or concerns for t/w.
[2024-04-19 16:00] VITALS: BP 101/65; PULSE 84; RESP 18; TEMP 37.2; O2SAT 94
--- NOTE | 2024-04-19 16:24 | PC.NURSE ---
Attempt to call report and no nurse answered for SNF.
== END 2024-04-19 19:38 | disposition skilled nursing facility (03) | DRG 280 ==
LOC: HO.ED 08:04 → HO.EDOVER 09:30 → HO.S3 23:31
PROVIDERS: Internal Medicine Gastroenterology; Student in an Organized Health Care Education/Training Program; Admitting Provider Internal Medicine; Emergency Provider Emergency Medicine; PCP Internal Medicine; Visit Provider Physician Assistant Medical
PROC: 0DJD8ZZ Inspection of Lower Intestinal Tract, Via Natural or Artificial Opening Endoscopic (ICD-10-PCS; CPT 45378; principal; 2024-04-09 14:20)
DX: K70.31 Alcoholic cirrhosis of liver with ascites (principal); G93.41 Metabolic encephalopathy; F05 Delirium due to known physiological condition; J18.9 Pneumonia, unspecified organism; D68.9 Coagulation defect, unspecified; K56.7 Ileus, unspecified; K72.10 Chronic hepatic failure without coma; K63.5 Polyp of colon; F10.20 Alcohol dependence, uncomplicated; K76.82 Hepatic encephalopathy; F39 Unspecified mood [affective] disorder; R53.81 Other malaise; K64.9 Unspecified hemorrhoids; R73.9 Hyperglycemia, unspecified; E83.42 Hypomagnesemia; K80.20 Calculus of gallbladder without cholecystitis without obstruction; Z91.148 Patient's other noncompliance with medication regimen for other reason; Z86.718 Personal history of other venous thrombosis and embolism; Z87.891 Personal history of nicotine dependence; Z79.899 Other long term (current) drug therapy
CPT/HCPCS: 36415; 71045; 74018; 74176; 76705; 80048; 80053; 80076; 82040; 82140; 83036; 83735; 84100; 84478; 84484; 85025; 85027; 85610; 86140; 93005; 97110; 97112; 97116; 97162; 97166; 97530; 97535; 99285; J1596; J1940; J2003; J2371; J2405; J2543; J2704; J2710; J3411; J3475; J3480; J7120; P9047

== ENCOUNTER 2024-04-01 09:27 | Outpatient (BNV) | payer OTHER, SELFPAY | END 2024-04-06 16:00 | PROVIDERS: Admitting Provider Internal Medicine; Emergency Provider Emergency Medicine; PCP Internal Medicine; Visit Provider Radiology Diagnostic Radiology | DX: K56.7 Ileus, unspecified (principal) | CPT/HCPCS: 74018 ==

== ENCOUNTER 2024-04-01 09:27 | Outpatient (BNV) | payer OTHER, SELFPAY | END 2024-04-07 07:55 | PROVIDERS: Admitting Provider Internal Medicine; Emergency Provider Emergency Medicine; PCP Internal Medicine; Visit Provider Radiology Vascular & Interventional Radiology | DX: K56.609 Unspecified intestinal obstruction, unspecified as to partial versus complete obstruction (principal) | CPT/HCPCS: 74018 ==

== ENCOUNTER 2024-04-01 09:27 | Outpatient (BNV) | payer OTHER, SELFPAY | END 2024-04-03 08:20 | PROVIDERS: Admitting Provider Internal Medicine; Emergency Provider Emergency Medicine; PCP Internal Medicine; Visit Provider Radiology Diagnostic Radiology | DX: K76.82 Hepatic encephalopathy (principal) | CPT/HCPCS: 71045; 74176 ==

== ENCOUNTER 2024-04-01 09:27 | Outpatient (BNV) | payer OTHER, SELFPAY | END 2024-04-05 16:00 | PROVIDERS: Admitting Provider Internal Medicine; Emergency Provider Emergency Medicine; PCP Internal Medicine; Visit Provider Radiology Diagnostic Radiology | DX: K63.89 Other specified diseases of intestine (principal) | CPT/HCPCS: 74018 ==

== ENCOUNTER 2024-04-01 09:27 | Outpatient (BNV) | payer OTHER, SELFPAY | END 2024-04-02 14:08 | PROVIDERS: Admitting Provider Internal Medicine; Emergency Provider Emergency Medicine; PCP Internal Medicine; Visit Provider Radiology Diagnostic Radiology | DX: R18.8 Other ascites (principal) | CPT/HCPCS: 76705 ==

== ENCOUNTER 2024-04-01 09:27 | Outpatient (BNV) | payer OTHER, SELFPAY | END 2024-04-03 08:22 | PROVIDERS: Admitting Provider Internal Medicine; Emergency Provider Emergency Medicine; PCP Internal Medicine; Visit Provider Internal Medicine | DX: R00.0 Tachycardia, unspecified (principal); R94.31 Abnormal electrocardiogram [ECG] [EKG] | CPT/HCPCS: 93010 ==

== ENCOUNTER → 2024-04-01 09:27 | Outpatient (BNV) | payer OTHER, SELFPAY | PROVIDERS: Admitting Provider Internal Medicine; Emergency Provider Emergency Medicine; PCP Internal Medicine; Visit Provider Internal Medicine Gastroenterology | DX: D12.5 Benign neoplasm of sigmoid colon (principal); K64.8 Other hemorrhoids | CPT/HCPCS: 45378; 99499 ==

== ENCOUNTER → 2024-04-01 09:27 | Outpatient (BNV) | payer OTHER, SELFPAY | PROVIDERS: Admitting Provider Internal Medicine; Emergency Provider Emergency Medicine; PCP Internal Medicine; Visit Provider Surgery | DX: K80.20 Calculus of gallbladder without cholecystitis without obstruction (principal); K56.7 Ileus, unspecified | CPT/HCPCS: 99222; 99232 ==

== ENCOUNTER → 2024-04-01 09:27 | Outpatient (BNV) | payer OTHER, SELFPAY | PROVIDERS: Admitting Provider Internal Medicine; Emergency Provider Emergency Medicine; PCP Internal Medicine; Visit Provider Psychiatry & Neurology Psychiatry | DX: F10.90 Alcohol use, unspecified, uncomplicated (principal); K76.82 Hepatic encephalopathy; K70.30 Alcoholic cirrhosis of liver without ascites | CPT/HCPCS: 99232 ==

== ENCOUNTER → 2024-04-01 09:27 | Outpatient (BNV) | payer OTHER, SELFPAY | PROVIDERS: Admitting Provider Internal Medicine; Emergency Provider Emergency Medicine; PCP Internal Medicine; Visit Provider Nurse Practitioner Psychiatric/Mental Health | DX: F10.90 Alcohol use, unspecified, uncomplicated (principal) | CPT/HCPCS: 99222 ==

== ENCOUNTER → 2024-04-01 09:27 | Outpatient (BNV) | payer OTHER, SELFPAY | PROVIDERS: Admitting Provider Internal Medicine; Emergency Provider Emergency Medicine; PCP Internal Medicine; Visit Provider Internal Medicine | DX: K56.7 Ileus, unspecified (principal); K76.82 Hepatic encephalopathy; G93.41 Metabolic encephalopathy | CPT/HCPCS: 99223; 99232 ==

== ENCOUNTER 2024-04-30 08:16 | Emergency (ER) | payer MEDICAID, SELFPAY ==
--- NOTE | 2024-04-30 | ECG_ITS ---
Test Reason : tachycardic Blood Pressure : */* mmHG Vent. Rate : 104 BPM Atrial Rate : 104 BPM P-R Int : 158 ms QRS Dur : 74 ms QT Int : 346 ms P-R-T Axes : 40 5 69 degrees QTcB Int : 454 ms Sinus tachycardia Nonspecific T wave abnormality Abnormal ECG When compared with ECG of 03-Apr-2024 08:22, T wave inversion no longer evident in Anterior leads Referred By: Generic ED Physician Electronically Signed By: Luis Shanks
[2024-04-30 08:21] VITALS: BP 121/81; PULSE 113; RESP 18; TEMP 36; O2SAT 92; BMI 27.0
[2024-04-30 09:07] LABS: MANUAL DIFF FLAG NO
[2024-04-30 09:18] LABS: Basophils Percent Auto 0.8 % (0-2); Eosinophils Absolute Auto 0.2 X10*3/uL (0.0-0.4); Eosinophils Percent Auto 5.3 % (0-4); Hematocrit 38.5 % (42.0-52.0); Hemoglobin 13.7 g/dl (14.0-18.0); Lymphocytes Absolute Auto 1.2 X10*3/uL (1.2-4.9); Lymphocytes Percent Auto 30.2 % (20-40); Mean Corpuscular HGB Conc 35.6 g/dl (31.0-36.0); Mean Corpuscular Hemoglobin 32.7 pg (27.0-33.0); Mean Corpuscular Volume 91.9 fL (80.0-98.0); Mean Platelet Volume 11.9 fL (9.4-12.4); Monocytes Absolute Auto 0.5 X10*3/uL (0.1-1.2); Monocytes Percent Auto 13.4 % (2-11); Neutrophils Percent Auto 50.3 % (45-73); Platelet Count 129 X10*3/uL (160-400); Red Blood Count 4.19 X10*6/uL (4.60-5.80)
[2024-04-30 09:21] LABS: B Type Natriuretic Peptide 28 pg/mL (<100)
[2024-04-30 09:22] LABS: Alanine Aminotransferase 26 U/L (0-40); Albumin Level 3.2 g/dL (3.5-5.0); Alkaline Phosphatase 161 U/L (39-117); Anion Gap 12 (12-20); Aspartate Amino Transferase 95 U/L (5-37); Bilirubin Direct 1.8 mg/dL (0.0-0.5); Bilirubin Total 3.1 mg/dL (0.0-1.0); Blood Urea Nitrogen 5 mg/dL (9-16); Calcium 8.2 mg/dL (8.4-10.2); Carbon Dioxide 23 mmol/L (22-29); Chloride 106 mmol/L (96-108); Creatinine Clr Calc Pharmacy 237.2; Estimated Glomerular Filt Rate > 60; Ethanol < 10 mg/dL; Glucose Random 97 mg/dL (60-115); Lipase 14 U/L (8-78); Magnesium 1.6 mg/dL (1.6-2.6); Sodium 137 mmol/L (135-145); Total Protein 6.1 g/dL (6.5-8.0)
--- NOTE | 2024-04-30 09:23 | ED.GENADULT ---
HPI - General Adult General Chief complaint: Altered Mental Status Stated complaint: Needs fluid drained Time Seen by Provider: 04/30/24 09:23 History of Present Illness ED Provider: Lam MONTERO narrative: The patient is a 34 year-old male with a history of severe chronic alcoholic liver disease. He was hospitalized here recently from April 01 through April 18. At discharge he went to a rehab facility from what she was discharged on Tuesday. When he was discharged from the rehab facility he went to his brother's house. His brother and his brother's fiancee are helping to look after him. They have only a few of his medications. Today he seemed more confused and they felt he was hallucinating and brought him to the emergency room. The patient has no abdominal pain. He says he has not use alcohol recently. No vomiting or diarrhea. Related Data Home Medications ?Medication ?Instructions ?Recorded ?Confirmed bisacodyl 5 mg tablet,delayed 10 mg PO BEDTIME PRN Constipation 04/01/24 04/01/24 release (Dulcolax (bisacodyl)) Previous Rx's ?Medication ?Instructions ?Recorded gabapentin 100 mg capsule 100 mg PO TID 30 days #90 caps 12/13/23 atenolol 25 mg tablet 25 mg PO DAILY #90 tabs 12/22/23 omeprazole 20 mg capsule,delayed 20 mg PO DAILY #90 caps 01/31/24 release folic acid 1 mg tablet 1 mg PO DAILY #0 tabs 04/18/24 furosemide 40 mg tablet 40 mg PO DAILY #0 tabs 04/18/24 lactulose 20 gram/30 mL oral 20 g (30 mL) PO TID@1000,1500,2100 04/18/24 solution #0 mL magnesium oxide 400 mg (241.3 mg 400 mg PO BIDPC #0 tabs 04/18/24 magnesium) tablet multivitamin (Daily-Gerri tablet) 1 tab PO DAILY #90 tabs 04/18/24 nicotine 21 mg/24 hr daily 21 mg transdermal DAILY #0 ea 04/18/24 transdermal patch rifaximin 550 mg tablet 550 mg PO BID #180 tabs 04/18/24 spironolactone 25 mg tablet 50 mg PO DAILY #0 tabs 04/18/24 thiamine mononitrate (vit B1) 100 100 mg PO DAILY #0 tabs 01/22/25 mg tablet buprenorphine 2 mg-naloxone 0.5 mg 1 film sublingual DAILY@1000 #0 ea 04/19/24 sublingual film (Suboxone) atenolol 25 mg tablet 25 mg PO DAILY #30 tabs 04/30/24 bisacodyl 5 mg tablet,delayed 10 mg (2 x 5 mg) PO BEDTIME #60 04/30/24 release tabs buprenorphine 2 mg-naloxone 0.5 mg 1 film buccal DAILY #30 ea 04/30/24 sublingual film (Suboxone) folic acid 1 mg tablet 1 mg PO DAILY #30 tabs 04/30/24 furosemide 40 mg tablet 40 mg PO DAILY #30 tabs 04/30/24 gabapentin 100 mg capsule 100 mg PO TID #90 caps 04/30/24 lactulose 20 gram/30 mL oral 20 g (30 mL) PO TID #3,000 mL 04/30/24 solution magnesium oxide 400 mg PO BID #60 tabs 04/30/24 multivitamin (Daily-Gerri tablet) 1 tab PO DAILY #30 tabs 04/30/24 omeprazole 20 mg capsule,delayed 20 mg PO DAILY #30 caps 04/30/24 release rifaximin 550 mg tablet 550 mg PO BID #60 tabs 04/30/24 spironolactone 25 mg tablet 50 mg (2 x 25 mg) PO DAILY #60 tabs 04/30/24 thiamine mononitrate (vit B1) 100 100 mg PO DAILY #30 tabs 04/30/24 mg tablet Allergies Allergy/AdvReac Type Severity Reaction Status Date / Time No Known Allergies Allergy Verified 04/30/24 08:26 Review of Systems Review of Systems: Yes all other systems are reviewed and are negative [facility] Past Medical History Medical History (Updated 04/30/24 @ 13:07 by Chris Fritz MD) Postprandial abdominal pain in right upper quadrant COVID Cirrhosis Neuropathy Sensory ataxia Clavicle fracture Alcohol abuse Foot pain, bilateral Abnormal complete blood count Abnormal liver enzymes No known health problems Surgical History (Updated 04/30/24 @ 09:27 by Ese Noble) Hx of colonoscopy Hx of skin graft Family History Family History Paternal Grandfather Cancer Paternal Grandmother Cancer Social History Social History Household Members: Significant Other Housing: [facility] [place] Are you a primary pet care assistant to a significant other at home: No Do you presently have visiting nurse or other home services: No Unable to assess alcohol history related to: Unknown Alcohol intake: former Comment: patient refusing bed alarm, steady on feet, high fall risk per ROBBY cummings Patient Tobacco Use Status: Former Tobacco user Years Smoked: 10 Smoked in Last 30 Days: No e-Cigarette/Vaping Use: Currently Using Use of substances other than those prescribed or required for medical reasons: Unknown Substance Use Type: Marijuana Advance Directives: No Advance Directives Information Provided: Yes Do you have a plan to hurt others: No Plan service: No 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 status: 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 Physical Exam ED Vital Signs: Vital Signs - 24 hr 04/30/24 08:21 04/30/24 11:24 04/30/24 12:52 Temperature 96.8 F 98.8 F Pulse Rate 113 H 98 Respiratory Rate 18 18 Blood Pressure 121/81 99/56 L Pulse Oximetry 92 98 Oxygen Delivery Method Room Air Room Air 04/30/24 13:59 Temperature 98.9 F Pulse Rate 101 H Respiratory Rate 18 Blood Pressure 109/71 Pulse Oximetry 99 Oxygen Delivery Method Room Air BMI result Body Mass Index 27.0 Const Other: the patient is a chronically ill-appearing 34-year-old. He seems fatigued and tends to hold his eyes closed. However he wakes with verbal stimuli and seems reasonably well oriented. He does not seem in acute pain or respiratory distress. HENMT Other: Face is symmetrical. Mucous membranes moist. Eyes Other: Pupils are round equal, conjunctivae show slight scleral icterus. Extraocular movements are intact. Neck Neck: Yes full ROM and Yes no lymphadenopathy Resp Effort & Inspection: normal respiratory effort Auscultation: clear to auscultation bilaterally Cardio Rate: tachycardic Rhythm: regular rhythm Heart sounds: S1 normal heart sound present and S2 normal heart sound present GI Other: The patient has a doughy abdomen. It is soft and nontender. No distention. Skin Other: Skin is pale and dry Neuro Other: the patient is awake and alert. He seems reasonably well oriented. Cranial nerves are grossly intact. Strength seems symmetrical as does sensory function. He is not frankly a encephalopathic. Extrem Other: Mild peripheral edema of the lower legs. Medications Administered Discontinued Medications Generic Name Dose Route Start Last Admin Trade Name Pamela PRN Reason Stop Dose Admin Atenolol 25 mg 04/30/24 12:23 04/30/24 12:48 Atenolol 25 Mg Tablet PO 04/30/24 12:24 25 mg ONCE ONE Administration Protocol Buprenorphine/Naloxone 1 film 04/30/24 12:25 04/30/24 12:48 Buprenorphine/Naloxone 2/0.5mg Film SUBLINGUAL 04/30/24 12:26 1 film ONCE ONE Administration Furosemide 40 mg 04/30/24 12:23 04/30/24 12:48 Furosemide 40 Mg Tablet PO 04/30/24 12:24 40 mg ONCE ONE Administration Protocol Lactulose 20 gm 04/30/24 12:26 04/30/24 12:48 Lactulose 20 Gm/30 Ml Solution PO 04/30/24 12:27 20 gm ONCE ONE Administration Rifaximin 550 mg 04/30/24 09:49 04/30/24 10:05 Rifaximin 550 Mg Tablet PO 04/30/24 09:50 550 mg ONCE ONE Administration Spironolactone 50 mg 04/30/24 12:23 04/30/24 12:48 Spironolactone 25 Mg Tablet PO 04/30/24 12:24 50 mg ONCE ONE Administration Protocol Medical Decision Making Medical Decision Making [facility] Narrative: The patient is a 34-year-old male who is currently staying at his brother's home. He was discharged from a rehab facility 3 days ago after being hospitalized at this hospital for a couple of weeks because of his alcoholic liver disease. This morning his brother thought the patient was hallucinating although the patient seems to have gotten somewhat spontaneously better. There is no report of any fever. The patient had a mildly elevated ammonia level. I did not appreciate any definite asterixis on exam. The patient was given a dose of rifaximin. Patient is currently staying with his brother. The brother says they do not have all of the patient's regular medications. In fact they only have 3 or 4 of these medications. The patient has tested positive for COVID today. My suspicion is that the patient's change in mental status is probably a consequence of this viral infection. The patient's ammonia level is mildly elevated but not severely elevated. I suspect the patient has a fairly low threshold for deterioration of his mental status. A COVID infection could probably do it. The patient was observed for several hours. He was given a dose of rifaximin. He was also given a dose of lactulose. Family he seemed somewhat better and was requesting discharge. I doubt this patient has any significant bacterial infection as a contributor to his current presentation. I think this is most likely a COVID infection causing some mental status changes in a patient who probably has a low threshold for mental status changes. His ammonia level is mildly elevated but not severely so. The patient was given a dose of rifaximin and also lactulose. He was observed. The brother is comfortable taking him home. 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 Lab Data 04/30/24 08:54 04/30/24 08:50 Labs: Lab Results 04/30/24 04/30/24 04/30/24 Range/Units 08:50 08:54 09:16 WBC 4.0 L (4.8-10.8) X10*3/uL RBC 4.19 L D (4.60-5.80) X10*6/uL Hgb 13.7 L D (14.0-18.0) g/dl Hct 38.5 L D (42.0-52.0) % MCV 91.9 (80.0-98.0) fL MCH 32.7 (27.0-33.0) pg MCHC 35.6 (31.0-36.0) g/dl RDW 13.0 (11.0-16.0) % Plt Count 129 L (160-400) X10*3/uL MPV 11.9 (9.4-12.4) fL Immature Gran % (Auto) 0.0 (0.0-0.4) % Neut % (Auto) 50.3 (45-73) % Lymph % (Auto) 30.2 (20-40) % [place] % (Auto) 13.4 H (2-11) % Eos % (Auto) 5.3 H (0-4) % Baso % (Auto) 0.8 (0-2) % Lymph # (Auto) 1.2 (1.2-4.9) X10*3/uL [place] # (Auto) 0.5 (0.1-1.2) X10*3/uL Eos # (Auto) 0.2 (0.0-0.4) X10*3/uL Baso # (Auto) 0.0 (0.0-0.2) X10*3/uL Abs Immat Gran (auto) 0.00 (0.00-0.03) X10*3/uL Absolute Neuts (auto) 2.0 (2.0-8.3) x10*3/uL Absolute Nucleated RBC 0.000 (0.0-0.012) X10*3/uL Nucleated RBC % (auto) 0.0 (0.0-0.2) /100WBC PT (10.9-12.4) SEC INR (0.9-1.1) Sodium 137 (135-145) mmol/L Potassium 4.0 D (3.3-5.1) mmol/L Chloride 106 (96-108) mmol/L Carbon Dioxide 23 (22-29) mmol/L Anion Gap 12 (12-20) BUN 5 L (9-16) mg/dL Creatinine 0.51 (0.5-1.4) mg/dL Estim Creat Clear Calc 237.2 Estimated GFR > 60 Random Glucose 97 (60-115) mg/dL Calcium 8.2 L (8.4-10.2) mg/dL Magnesium 1.6 (1.6-2.6) mg/dL Total Bilirubin 3.1 H (0.0-1.0) mg/dL Direct Bilirubin 1.8 H (0.0-0.5) mg/dL AST 95 H (5-37) U/L ALT 26 (0-40) U/L Alkaline Phosphatase 161 H (39-117) U/L Ammonia 76 H (13-55) umol/L B-Natriuretic Peptide 28 (<100) pg/mL Total Protein 6.1 L (6.5-8.0) g/dL Albumin 3.2 L (3.5-5.0) g/dL Lipase 14 (8-78) U/L Urine Color Urine Appearance Urine pH (5.0-9.0) Ur Specific Lee (1.005-1.025) Urine Protein (Neg-Trace) mg/dL Urine Glucose (UA) (Negative) mg/dL Urine Ketones (Negative) mg/dL Urine Blood (Negative) Urine Nitrite (Negative) Ur Leukocyte Esterase (Negative) Urine RBC (0-2) /HPF Urine WBC (0-5) /HPF Ur Squamous Epith Cells (0-2) /HPF Urine Bacteria (None Seen) Hyaline Casts (0-2) /LPF Urine Opiates Screen (Not Detect) Ur Buprenorphine Scrn (Not Detect) ng/mL Ur Oxycodone Screen (Not Detect) ng/mL Urine Methadone Screen (Not Detect) ng/mL Urine Fentanyl Screen (Not Detect) Ur Barbiturates Screen (Not Detect) Ur Phencyclidine Scrn (Not Detect) Ur Amphetamines Screen (Not Detect) U Benzodiazepines Scrn (Not Detect) Urine Cocaine Screen (Not Detect) U Marijuana (THC) Screen (Not Detect) Ethyl Alcohol < 10 mg/dL Influenza Type A (PCR) (Negative) Influenza Type B (PCR) (Negative) RSV RNA Qual (PCR) (Negative) SARS-CoV-2 RNA (RT-PCR) (Negative) 04/30/24 Range/Units 10:10 WBC (4.8-10.8) X10*3/uL RBC (4.60-5.80) X10*6/uL Hgb (14.0-18.0) g/dl Hct (42.0-52.0) % MCV (80.0-98.0) fL MCH (27.0-33.0) pg MCHC (31.0-36.0) g/dl RDW (11.0-16.0) % Plt Count (160-400) X10*3/uL MPV (9.4-12.4) fL Immature Gran % (Auto) (0.0-0.4) % Neut % (Auto) (45-73) % Lymph % (Auto) (20-40) % [place] % (Auto) (2-11) % Eos % (Auto) (0-4) % Baso % (Auto) (0-2) % Lymph # (Auto) (1.2-4.9) X10*3/uL [place] # (Auto) (0.1-1.2) X10*3/uL Eos # (Auto) (0.0-0.4) X10*3/uL Baso # (Auto) (0.0-0.2) X10*3/uL Abs Immat Gran (auto) (0.00-0.03) X10*3/uL Absolute Neuts (auto) (2.0-8.3) x10*3/uL Absolute Nucleated RBC (0.0-0.012) X10*3/uL Nucleated RBC % (auto) (0.0-0.2) /100WBC PT 28.2 H (10.9-12.4) SEC INR 2.4 H (0.9-1.1) Sodium (135-145) mmol/L Potassium (3.3-5.1) mmol/L Chloride (96-108) mmol/L Carbon Dioxide (22-29) mmol/L Anion Gap (12-20) BUN (9-16) mg/dL Creatinine (0.5-1.4) mg/dL Estim Creat Clear Calc Estimated GFR Random Glucose (60-115) mg/dL Calcium (8.4-10.2) mg/dL Magnesium (1.6-2.6) mg/dL Total Bilirubin (0.0-1.0) mg/dL Direct Bilirubin (0.0-0.5) mg/dL AST (5-37) U/L ALT (0-40) U/L Alkaline Phosphatase (39-117) U/L Ammonia (13-55) umol/L B-Natriuretic Peptide (<100) pg/mL Total Protein (6.5-8.0) g/dL Albumin (3.5-5.0) g/dL Lipase (8-78) U/L Urine Color DK YELLOW Urine Appearance Turbid Urine pH 5.5 (5.0-9.0) Ur Specific Lee >= 1.030 H (1.005-1.025) Urine Protein 30 (1+) H (Neg-Trace) mg/dL Urine Glucose (UA) Negative (Negative) mg/dL Urine Ketones 15 (Negative) mg/dL Urine Blood Negative (Negative) Urine Nitrite Positive H (Negative) Ur Leukocyte Esterase Negative (Negative) Urine RBC 0-2 (0-2) /HPF Urine WBC 0-5 (0-5) /HPF Ur Squamous Epith Cells 3-5 (0-2) /HPF Urine Bacteria Trace (None Seen) Hyaline Casts 0-2 (0-2) /LPF Urine Opiates Screen Not Detected (Not Detect) Ur Buprenorphine Scrn Positive H (Not Detect) ng/mL Ur Oxycodone Screen Not Detected (Not Detect) ng/mL Urine Methadone Screen Not Detected (Not Detect) ng/mL Urine Fentanyl Screen Not Detected (Not Detect) Ur Barbiturates Screen Not Detected (Not Detect) Ur Phencyclidine Scrn Not Detected (Not Detect) Ur Amphetamines Screen Not Detected (Not Detect) U Benzodiazepines Scrn Not Detected (Not Detect) Urine Cocaine Screen Not Detected (Not Detect) U Marijuana (THC) Screen POSITIVE H (Not Detect) Ethyl Alcohol mg/dL Influenza Type A (PCR) NEGATIVE (Negative) Influenza Type B (PCR) NEGATIVE (Negative) RSV RNA Qual (PCR) NEGATIVE (Negative) SARS-CoV-2 RNA (RT-PCR) POSITIVE A (Negative) Discharge Plan Discharge Clinical Impression: COVID, Increased ammonia level Patient Disposition: Home, Self-Care Instructions: COVID-19 (Coronavirus Disease 2019) (ED) Additional Instructions: He is testing positive for COVID today. I think a COVID infection might be causing the change in his condition. However his oxygen level is good and I do not think he requires hospitalization today. I have sent refills on all of his medications. Please resume his usual medication regimen. Please have him follow up soon with his regular doctor and his merchandising execution manager. He has been seen at the gastroenterology office by Leida Guerrero, a nurse practitioner. Please call the offices today to arrange prompt follow up appointments. Return to the emergency room if significantly worse. Prescriptions: New atenolol 25 mg tablet 25 mg PO DAILY Qty: 30 0RF gabapentin 100 mg capsule 100 mg PO TID Qty: 90 0RF omeprazole 20 mg capsule,delayed release(DR/EC) 20 mg PO DAILY Qty: 30 0RF bisacodyl 5 mg tablet,delayed release (DR/EC) 10 mg PO BEDTIME Qty: 60 0RF buprenorphine-naloxone [Suboxone] 2-0.5 mg film 1 film buccal DAILY Qty: 30 0RF Rx Instructions: place 1 strip/tab under (each) side of tongue rifaximin 550 mg tablet 550 mg PO BID Qty: 60 0RF thiamine mononitrate (vit B1) 100 mg tablet 100 mg PO DAILY Qty: 30 0RF lactulose 20 gram/30 mL solution 20 g PO TID Qty: 3000 0RF folic acid 1 mg tablet 1 mg PO DAILY Qty: 30 0RF magnesium oxide 400 mg magnesium tablet 400 mg PO BID Qty: 60 0RF spironolactone 25 mg tablet 50 mg PO DAILY Qty: 60 0RF furosemide 40 mg tablet 40 mg PO DAILY Qty: 30 0RF multivitamin [Daily-Gerri] Tablet 1 tab PO DAILY Qty: 30 0RF No Action atenolol 25 mg tablet 25 mg PO DAILY Qty: 90 0RF bisacodyl [Dulcolax (bisacodyl)] 5 mg tablet,delayed release (DR/EC) 10 mg PO BEDTIME PRN (Reason: Constipation) multivitamin [Daily-Gerri] Tablet 1 tab PO DAILY Qty: 90 0RF furosemide 40 mg Tablet 40 mg PO DAILY Qty: 0 0RF Protocol: Hold for SBP< HOLD for SBP < : 90 spironolactone 25 mg Tablet 50 mg PO DAILY Qty: 0 0RF Protocol: Hold for SBP< HOLD for SBP < : 90 magnesium oxide 400 mg (241.3 mg magnesium) Tablet 400 mg PO BIDPC Qty: 0 0RF nicotine 21 mg/24 hr Patch 24 Hour 21 mg transdermal DAILY Qty: 0 0RF folic acid 1 mg Tablet 1 mg PO DAILY Qty: 0 0RF lactulose 20 gram/30 mL Solution 20 g PO TID@1000,1500,2100 Qty: 0 0RF thiamine mononitrate (vit B1) 100 mg Tablet 100 mg PO DAILY Qty: 0 0RF rifaximin 550 mg tablet 550 mg PO BID Qty: 180 0RF buprenorphine-naloxone [Suboxone] 2-0.5 mg Film 1 film sublingual DAILY@1000 Qty: 0 0RF gabapentin 100 mg capsule 100 mg PO TID 30 Days Qty: 90 4RF omeprazole 20 mg capsule,delayed release(DR/EC) 20 mg PO DAILY Qty: 90 3RF Interventions: ED Discharge Assessment Last Done: 04/30/24 13:59 Discharge Date/Time: 04/30/24 14:00 Print Language: Albanian
--- OUTSIDE RECORDS SUMMARY | 2024-04-30 09:37 | XMS_ITS | Clinical Summary ---
Author Organization 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 Name Role Phone Unavailable Primary Care Provider Unavailabl e Social History Tobacco Use Types Packs/Day Years Used Date Smoking Tobacco: Never Assessed Sex and Gender Information Value Date Recorded Sex Assigned at Not on file Gender Identity Not on file Sexual Orientation Not on file Plan of Treatment Health Maintenance Due Date Last Done Comments DTaP,Tdap,and Td Vaccines (1 - Tdap) 2009 Hepatitis B Vaccines (1 of 3 - 19+ 3-dose series) 2009 COVID-19 Vaccine (2023-2 5 season) 2023 Influenza Vaccine (#1) 2023 HIB Vaccines Aged Out No longer eligi ble based on patient's age to complete this topic HPV Vaccines Aged Out No longer eligi ble based on patient's age to complete this topic Hepatitis A Vaccines Aged Out No long er eligible based on patient's age to complete this topic IPV Vaccines Aged Out No longer eligi ble based on patient's age to complete this topic MMR Vaccines Aged Out No longer eligi ble based on patient's age to complete this topic Meningococcal ACWY Vaccine Aged Out N o longer eligible based on patient's age to complete this topic Pneumococcal Vaccine: Pediat rics (0 to 5 Years) and At-Risk Patients (6 to 64 Years) Aged Out No longer eligible b ased on patient's age to complete this topic RSV Immunization Patients Un don 20 months Aged Out No longer eligible b ased on patient's age to complete this topic Varicella Vaccines Aged Out No longer eligible based on patient's age to complete this topic
[2024-04-30 09:39] LABS: Ammonia 76 umol/L (13-55)
[2024-04-30] MEDS: rifAXIMin 550 MG TABLET PO (10:05)
[2024-04-30 10:22] LABS: Appearance Urine Turbid; Color Urine DK YELLOW; Glucose Urine UA Negative (Negative); Leukocyte Esterase Urine Negative (Negative); Nitrite Urine Positive (Negative); PH 5.5 (5.0-9.0); Specific Gravity - Urine >= 1.030 (1.005-1.025); UMIC TRIGGER UACC YES; Urine Blood Negative (Negative); Urine Ketones 15 mg/dL (Negative); Urine Protein 30 (1+) mg/dL (Neg-Trace)
[2024-04-30 10:24] LABS: INTERNATIONAL NORM RATIO 2.4 (0.9-1.1); Prothrombin Time 28.2 SEC (10.9-12.4)
[2024-04-30 10:33] LABS: Hyaline Casts Urine 0-2 /LPF (0-2); RBC Urine 0-2 /HPF (0-2); WBC Urine 0-5 /HPF (0-5)
[2024-04-30 10:34] LABS: Bacteria Urine Trace (None Seen); UACC Culture Trigger YES
[2024-04-30 11:16] LABS: Influenza A PCR NEGATIVE (Negative); Influenza B PCR NEGATIVE (Negative); Resp Syncy Virus RNA Qual PCR NEGATIVE (Negative); SARS COV2 PCR INHOUSE POSITIVE (Negative)
[2024-04-30 11:20] LABS: Amphetamine Screen Urine Not Detected (Not Detect); Barbiturates, Urine Not Detected (Not Detect); Benzodiazepines Screen Urine Not Detected (Not Detect); Buprenorphine Scr Positive (Not Detect); Cannabinoid Screen Urine POSITIVE (Not Detect); Cocaine Screen Urine Not Detected (Not Detect); Fentanyl, urine Not Detected (Not Detect); Methadone Screen, Urine Not Detected (Not Detect); Opiate Screen Urine Not Detected (Not Detect); Oxycodone Screen Urine Not Detected (Not Detect); Phencyclidine Screen Urine Not Detected (Not Detect)
[2024-04-30 11:24] VITALS: TEMP 37.1
[2024-04-30] MEDS: Spironolactone 25 MG TABLET 50 MG PO (12:48)
[2024-04-30] MEDS: Furosemide 40 MG TABLET PO (12:48)
[2024-04-30] MEDS: atenoloL 25 MG TABLET PO (12:48)
[2024-04-30] MEDS: Buprenorphine/Naloxone 2/0.5mg FILM 1 FILM SUBLINGUAL (12:48)
[2024-04-30] MEDS: Lactulose 20 GM/30 ML SOLUTION PO (12:48)
[2024-04-30 12:52] VITALS: BP 99/56; PULSE 98; RESP 18; O2SAT 98
[2024-04-30 13:59] VITALS: BP 109/71; PULSE 101; RESP 18; TEMP 37.2; O2SAT 99
== END 2024-04-30 14:00 | disposition home or self-care (01) ==
PROVIDERS: Physician Assistant Medical; Emergency Provider Emergency Medicine; PCP Internal Medicine
DX: U07.1 COVID-19 (principal); R41.82 Altered mental status, unspecified; K70.9 Alcoholic liver disease, unspecified; R44.3 Hallucinations, unspecified; E72.20 Disorder of urea cycle metabolism, unspecified; R00.0 Tachycardia, unspecified; R06.02 Shortness of breath; Z51.81 Encounter for therapeutic drug level monitoring; Z79.899 Other long term (current) drug therapy
CPT/HCPCS: 0241U; 36415; 80053; 80307; 81001; 82140; 82248; 83690; 83735; 83880; 85025; 85610; 87086; 87088; 87186; 93005; 99283; 99285

== ENCOUNTER 2024-05-11 12:14 | Outpatient (AMB) | payer MEDICAID, SELFPAY ==
[2024-05-11 12:17] VITALS: BP 116/80; PULSE 94; O2SAT 97; BMI 24.5
--- NOTE | 2024-05-11 12:17 | A.OFFPC_ITS ---
Vital Signs 05/11/24 12:17 Height 6 ft 2 in Weight 190 lb 8 oz BMI 24.5 BP 116/80 Blood Pressure Location Rt brachial Position Sitting Pulse 94 Pulse Source Pulse Oximeter Pulse Oximetry (%) 97 Oxygen Delivery Method Room Air Intake Visit Reasons: Liver Disease, Hallucinations Allergies No Known Allergies Allergy (Verified 05/11/24 12:19) Medication List - Last Reconciled 05/11/24 by Zander Coughlin MD atenolol 25 mg PO DAILY buprenorphine-naloxone 2-0.5 mg (Suboxone) 1 film buccal DAILY folic acid 1 mg PO DAILY furosemide 40 mg PO DAILY gabapentin 100 mg PO TID lactulose 20 grams (30 mL) PO TID magnesium oxide 400 mg PO BID multivitamin (Daily-Gerri tablet) 1 tab PO DAILY nicotine 21 mg transdermal DAILY 7 days nitrofurantoin macrocrystal 100 mg PO BID 5 days omeprazole 20 mg PO DAILY rifaximin 550 mg PO BID 60 days spironolactone 50 mg (2 x 25 mg) PO DAILY trazodone 50 mg PO BEDTIME PRN Tobacco use date assessed: 05/11/24 Dental Screening Dental Screen Date: 05/11/24 Did you have a dental problem in the last 6 months where you did not have access to dental care?: No Was dental information given to patient?: Patient has dentist HPI Liver Disease, Hallucinations HPI Details Patient is 34 year old gentleman with a history of severe chronic alcoholic liver disease, hospitalized on April 01 through April 18. At dis charge he went to a rehab facility from what he was discharged on April 27 to his brother's house. Who is looking after him He was brought to emergency room on April 30 due to chief complaint of feeling confused and hallucinating In emergency room he had mildly elevated ammonia level no asterixis was seen Patient was given a dose of rifaximin He was found to be COVID positive, it was thought that his change in mental status is due to this new infection. He was kept in hospital for several hours and also was given dose of lactulose along with rifaximin His hemoglobin was 13.7 Electrolytes are stable, direct bilirubin was 1.8 and total bilirubin was 3.1 along with elevated AST at 95 and alkaline phosphatase 0161 albumin 3.2 total protein 6.1 lipase 14 His medications are Atenolol 25 mg Gabapentin 100 mg t.i.d. Omeprazole 20 mg once a day Bisacodyl 5 mg Patient is also on Suboxone 2-0.5 mg filled Rifaximin 550 mg b.i.d. Thiamine Lactulose Folic acid Magnesium Spironolactone 25 mg once a day Lasix 40 mg once a day He came in today for a follow-up appointment, he came in with his mother They were multiple questions that she had including clarification of his condi tion, medications, prognosis, memory issues, excessive sleepiness, anxiety, vaporizing nicotine, Suboxone And referral process to [facility] for liver transplant. All questions answered Patient also met with our behavior health coordinator for therapy initiation dry yard worker is already involved with patient's care Mother verbalize that patient is sleeping excessively, I am discontinuing his lorazepam that he was taking for anxiety It was initially started to help him quit drinking. On examination he continued to have mild ascites and some discomfort around the abdomen generalize but no rebound or guarding Medications - Atenolol, 25 mg once daily for hyperte nsion - Folic Acid, 1 mg once daily for supple mentation - Furosemide, 40 mg once daily for fluid overload - Lactulose, 30 ml twice daily for hepat ic encephalopathy - Magnesium Oxide, 400 mg once daily for supplementation - Multivitamin once daily for general he alth - Neurontin (Gabapentin), 100 mg three t imes daily for neuropathic pain - Omeprazole, 20 mg once daily for gastr oesophageal reflux disease - Rifaximin for hepatic encephalopathy, pending prior authorization - Nicotine patch for smoking cessation - Spironolactone, 50 mg once daily for a scites - Suboxone (Buprenorphine) once daily fo r substance use disorder - Lorazepam, 1 mg up to three times ledy y for anxiety [ discontinued ] Problem List - Liver cirrhosis - Alcohol use disorder - COVID-19 infection - Hepatic encephalopathy - Ascites - Anxiety - Substance use (vaping nicotine) and is also on Suboxone - History of Eliquis (apixaban) use - excessive sleepiness - depression Diagnostic results - Labs: Elevated ammonia levels suggesti ve of hepatic encephalopathy. In the emergency room - Tests and diagnostics: History of abdo jaida ultrasound indicating ascites. [place] [facility] - Pilot Control Operator Helper involved: Gastroenterology, Hematology, Neurology. - Referred to [facility] fo r liver transplant evaluation. Patient Instructions - Use nicotine patches as prescribed and avoid vaping. - Monitor for signs of increasing ascite s; weigh regularly. - discontinue lorazepam use if excessive sleeping continues. - Follow dietary guidelines; consult Dr. De Paz for nutritional supplements. - Understand importance of sobriety for liver transplant eligibility. - Schedule follow-up with gastroenterolo jamee for potential liver transplantation. Review of Systems General: No fever no chills neurological: No headaches no dizziness ear nose throat: No sore throat no hearing difficulty no ear pain cardiovascular: No syncope, no chest pain, no palpitations gastrointestinal: No nausea vomiting or diarrhea endocrine: No polyuria polydipsia no heat intolerance genitourinary: No dysuria skin: No new complaints Physical Exam general: No acute distress HEENT: No acute findings neck: Supple respiratory system: Able to talk in full sentences, no audible wheeze no stridor cardiovascular: S1-S2 gastrointestinal: Minimal Pain present with palpation, is height is present ART PSYCHOTHERAPIST OR THERAPIST: Alert awake oriented x3 motor sensory intact, looks slightly drowsy but answers appropriately skin: Normal turgor PFSH Medical History Postprandial abdominal pain in right upper quadrant COVID Cirrhosis Neuropathy Sensory ataxia Clavicle fracture Alcohol abuse Foot pain, bilateral Abnormal complete blood count Abnormal liver enzymes No known health problems Surgical History Hx of colonoscopy Hx of skin graft Family History Paternal Grandfather Cancer Paternal Grandmother Cancer Social History Household Members: Significant Other Housing: Condominium Are you a primary patient care associate to a significant other at home: No Do you presently have visiting nurse or other home services: No Unable to assess alcohol history related to: Unknown Alcohol intake: former Comment: patient refusing bed alarm, steady on feet, [facility] Patient Tobacco Use Status: Former Tobacco user Years Smoked: 10 e-Cigarette/Vaping Use: Currently Using Substance Use Type: Marijuana service: No 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 status: 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 1. Little interest or pleasure in doing things: not at all 2. Feeling down, depressed, or hopeless: several days 3. Trouble falling or staying asleep, or sleeping too much: several days 4. Feeling tired or having little energy: several days 5. Poor appetite or overeating: not at all 6. Feeling bad about yourself - or that you are a failure or have let yourself or your family down: several days 7. Trouble concentrating on things, such as reading the newspaper or watching television: not at all 8. Moving or speaking so slowly that other people could have noticed. Or the opposite - being so fidgety or restless that you have been moving around a lot more than usual: not at all 9. Thoughts that you would be better off or of hurting yourself in some way: several days Total score: 5 Depression Screening Interpretation: Negative Depression Screening Done: Yes 44620 - PHQ-9 Billing: Yes Source: Developed by Drs. Michele Braswell, Andree Rodriguez, Niles Meléndez and colleagues, with an educational kel from [employer]. Thrive Questionnaire Date Thrive assessed: 05/11/24 I am a: Patient What is your living situation today?: I have a steady place to live Within the past 12 months, did the food you bought not last and you didn't have the money to get more?: Never true Within the past 12 months, did you worry whether your food would run out before you got money to buy more?: Never true Do you have trouble paying for medicines?: Yes Do you have trouble getting transportation to medical appointments?: Yes Do you have trouble paying your heating and electricity bill?: I choose not to answer this question Do you have trouble taking care of your child, family member or friend?: I choose not to answer this question Do you have trouble with day-to-day activities such as bathing, preparing meals, shopping, managing finances, etc.?: I choose not to answer this question Are you currently unemployed and looking for a job?: I choose not to answer this question Are you interested in more education?: I choose not to answer this question Currently or been in a relationship where the following occur: No concerns reported THRIVE Score: 1 AUDIT C Alcohol Use Questionnaire (AUDIT-C) 1. How often do you have a drink containing alcohol?: Never 3. How often do you have six or more drinks on one occasion?: Never Total Score: 0 Score Reviewed/Action Taken: Yes CONNOR-7 AMB Questionnaire CONNOR-7 Date CONNOR - 7 assessed: 05/11/24 Feeling nervous, anxious, or on edge: 3 = Nearly every day Not being able to stop or control worryin = Several days Worrying too much about different things: 0 = Not at all Trouble relaxin = Not at all Being so restless that it is hard to sit still: 0 = Not at all Becoming easily annoyed or irritable: 3 = Nearly every day Feeling afraid as if something awful might happen: 0 = Not at all Total CONNOR-7 score (0-4 normal; 5-9 mild; 10-14 moderate; 15-21 severe): 7 Source: Developed by Drs. Michele Braswell, Andree Rodriguez, Niles Meléndez and colleagues, with an educational kel from [employer]. CONNOR-7 Assessment Billing CONNOR-7 Assessment Tool: CONNOR-7 Assessment 74185 Physical exam (Primary Care) Vital Signs: Last Vital Signs Pulse 94 05/11/24 12:17 BP 116/80 05/11/24 12:17 Pulse Ox 97 05/11/24 12:17 Oxygen Delivery Method Room Air 05/11/24 12:17 BMI result Body Mass Index 24.5 Tobacco/Smoking Status: Tobacco use Status Tobacco use date assessed 05/11/24 05/11/24 12:21 Patient Tobacco Use Status Former Tobacco user 05/11/24 12:21 Tobacco use type 05/09/24 17:37 e-Cigarette/Vaping Use Currently Using 05/11/24 12:21 PHQ-9: PHQ-9 Score PHQ-9: Total score 5 05/11/24 13:56 Depression Screening Interpretation: Negative Thrive Assessment: Date of Thrive Assessment Date Thrive assessed 05/11/24 05/11/24 12:21 Currently or been in a relationship where the following occur: No concerns reported Coding Level of Care Code Est Pt Level 5 (10426) Complex EM visit Add On G2211 Diagnoses Confusion R41.0 Alcoholic cirrhosis of liver with ascites K70.31 Coagulopathy D68.9 Hypertension, essential I10 Alcoholic peripheral neuropathy G62.1 Moderate episode of recurrent major depressive disorder F33.1 Active/Remission status: currently active Major depression episode severity: moderate Anxiety, generalized F41.1 Excessive daytime sleepiness G47.19 Other tobacco product nicotine dependence, uncomplicated F17.290 Nicotine product type: other Substance use status: uncomplicated Risk for falls Z91.81 Additional Codes CONNOR-7 Assessment Billing - CONNOR-7 Assessment Tool: CONNOR-7 Assessment 70820 ([id number]) PHQ-9 - 43673 - PHQ-9 Billing: Yes ([id number]) Assessment & Plan Assessment & Plan (1) Confusion: Code(s): R41.0 - Disorientation, unspecified Category: Medical (2) Alcoholic cirrhosis of liver with ascites: Code(s): K70.31 - Alcoholic cirrhosis of liver with ascites Category: Medical (3) Coagulopathy: Code(s): D68.9 - Coagulation defect, unspecified Category: Medical (4) Hypertension, essential: Code(s): I10 - Essential (primary) hypertension Category: Medical (5) Alcoholic peripheral neuropathy: Code(s): G62.1 - Alcoholic polyneuropathy Category: Medical (6) Major depression, recurrent: Code(s): F33.9 - Major depressive disorder, recurrent, unspecified Category: Medical Qualifiers: Active/Remission status: currently active Major depression episode severity: moderate Qualified Code(s): F33.1 - Major depressive disorder, recurrent, moderate (7) Anxiety, generalized: Code(s): F41.1 - Generalized anxiety disorder Category: Medical (8) Excessive daytime sleepiness: Code(s): G47.19 - Other hypersomnia Category: Medical (9) Nicotine dependence: Code(s): F17.200 - Nicotine dependence, unspecified, uncomplicated Category: Medical Qualifiers: Nicotine product type: other Substance use status: uncomplicated Qualified Code(s): F17.290 - Nicotine dependence, other tobacco product, uncomplicated (10) Risk for falls: Code(s): Z91.81 - History of falling Category: Medical Plan Patient is 34 year old gentleman with a history of severe chronic alcoholic liver disease, hospitalized on April 01 through April 18. At discharge he went to a rehab facility from what he was discharged on April 27 to his brother's house. Who is looking after him He was brought to emergency room on April 30 due to chief complaint of feeling confused and hallucinating In emergency room he had mildly elevated ammonia level no asterixis was seen Patient was given a dose of rifaximin He was found to be COVID positive, it was thought that his change in mental status is due to this new infection. He was kept in hospital for several hours and also was given dose of lactulose along with rifaximin His hemoglobin was 13.7 Electrolytes are stable, direct bilirubin was 1.8 and total bilirubin was 3.1 along with elevated AST at 95 and alkaline phosphatase 0161 albumin 3.2 total protein 6.1 lipase 14 He came in today for a follow-up appointment, he came in with his mother They were multiple questions that she had including clarification of his condition, medications, prognosis, memory issues, excessive sleepiness, anxiety, vaporizing nicotine, Suboxone And referral process to [facility] for liver transplant. All questions answered Patient also met with our behavior health coordinator for therapy initiation dry yard worker is already involved with patient's care Mother verbalize that patient is sleeping excessively, I am discontinuing his lorazepam that he was taking for anxiety It was initially started to help him quit drinking. She is requesting Neurology referral which I have placed On examination he continued to have mild ascites and some discomfort around the abdomen generalize but no rebound or guarding FMLA paperwork also filled for mother so she can take time off and take care of her son Medications - Atenolol, 25 mg once daily for hypertension - Folic Acid, 1 mg once daily for supplementation - Furosemide, 40 mg once daily for fluid overload - Lactulose, 30 ml twice daily for hepatic encephalopathy - Magnesium Oxide, 400 mg once daily for supplementation - Multivitamin once daily for general health - Neurontin (Gabapentin), 100 mg three times daily for neuropathic pain - Omeprazole, 20 mg once daily for gastroesophageal reflux disease - Rifaximin for hepatic encephalopathy, pending prior authorization - Nicotine patch for smoking cessation - Spironolactone, 50 mg once daily for ascites - Suboxone (Buprenorphine) once daily for substance use disorder - Lorazepam, 1 mg up to three times daily for anxiety [ discontinued ] Problem List - Liver cirrhosis - Alcohol use disorder - COVID-19 infection - Hepatic encephalopathy - Ascites - Anxiety - Substance use (vaping nicotine) and is also on Suboxone - History of Eliquis (apixaban) use - excessive sleepiness - depression Diagnostic results - Labs: Elevated ammonia levels suggestive of hepatic encephalopathy. In the emergency room - Tests and diagnostics: History of abdominal ultrasound indicating ascites. [place] [facility] - Pilot Control Operator Helper involved: Gastroenterology, Hematology, Neurology. - Referred to [facility] for liver transplant evaluation. Patient Instructions - Use nicotine patches as prescribed and avoid vaping. - Monitor for signs of increasing ascites; weigh regularly. - discontinue lorazepam use if excessive sleeping continues. - Follow dietary guidelines; consult Dr. De Paz for nutritional supplements. - Understand importance of sobriety for liver transplant eligibility. - Schedule follow-up with gastroenterology for potential liver transplantation. 55 minutes spent in care of this patient Orders: Referrals Neurology Referral R41.0 - Disorientation, unspecified
--- OUTSIDE RECORDS SUMMARY | 2024-05-11 12:44 | XMS_ITS | Clinical Summary ---
Author Organization [facility] Address [address] [place] [address] Care Team Providers Care Plumber Pipe Fitting Name Role Phone Unavailable Primary Care Provider Unavailabl e Social History Tobacco Use Types Packs/Day Years Used Date Smoking Tobacco: Never Assessed Sex and Gender Information Value Date Recorded Sex Assigned at Not on file Legal Sex Male 1:25 PM EST Gender Identity Not on file Sexual Orientation [...] patient's age to complete this topic Meningococcal B Vacine Aged Out No lo nger eligible based on patient's age to complete [...]
== END 2024-05-11 13:39 | disposition home or self-care (01) ==
PROVIDERS: PCP Internal Medicine; Visit Provider Internal Medicine
DX: R41.0 Disorientation, unspecified (principal); K70.31 Alcoholic cirrhosis of liver with ascites; D68.9 Coagulation defect, unspecified; G62.1 Alcoholic polyneuropathy; F33.1 Major depressive disorder, recurrent, moderate; I10 Essential (primary) hypertension; F41.1 Generalized anxiety disorder; G47.19 Other hypersomnia; F17.290 Nicotine dependence, other tobacco product, uncomplicated; Z91.81 History of falling

== ENCOUNTER → 2024-05-11 12:14 | Outpatient (BNVA) | payer MEDICAID, SELFPAY | PROVIDERS: PCP Internal Medicine; Visit Provider Internal Medicine | DX: R41.0 Disorientation, unspecified (principal); K70.31 Alcoholic cirrhosis of liver with ascites; D68.9 Coagulation defect, unspecified; I10 Essential (primary) hypertension; G62.1 Alcoholic polyneuropathy; F33.1 Major depressive disorder, recurrent, moderate; F41.1 Generalized anxiety disorder; G47.19 Other hypersomnia; F17.290 Nicotine dependence, other tobacco product, uncomplicated; Z91.81 History of falling; Z71.6 Tobacco abuse counseling | CPT/HCPCS: 96127; 99212 ==

== ENCOUNTER 2024-05-15 11:35 | Outpatient (REF) | payer MEDICAID, SELFPAY ==
--- OUTSIDE RECORDS SUMMARY | 2024-05-15 12:49 | XMS_ITS | Clinical Summary ---
Author Organization [facility] Address [address] [place] [address] Care Team Providers Care Brake Repair Mechanic Name Role Phone Unavailable Primary Care [...]
[2024-05-15 13:04] LABS: MANUAL DIFF FLAG NO
[2024-05-15 13:11] LABS: Basophils Absolute Auto 0.1 X10*3/uL (0.0-0.2); Basophils Percent Auto 1.2 % (0-2); Eosinophils Absolute Auto 0.5 X10*3/uL (0.0-0.4); Eosinophils Percent Auto 9.3 % (0-4); Hematocrit 40.3 % (42.0-52.0); Hemoglobin 13.9 g/dl (14.0-18.0); Imm Gran Abs Auto 0.01 X10*3/uL (0.00-0.03); Imm Gran Pct Auto 0.2 % (0.0-0.4); Lymphocytes Percent Auto 20.6 % (20-40); Mean Corpuscular HGB Conc 34.5 g/dl (31.0-36.0); Mean Corpuscular Hemoglobin 31.5 pg (27.0-33.0); Mean Corpuscular Volume 91.4 fL (80.0-98.0); Monocytes Absolute Auto 0.5 X10*3/uL (0.1-1.2); Monocytes Percent Auto 9.9 % (2-11); Neutrophils Percent Auto 58.8 % (45-73); Platelet Count 189 X10*3/uL (160-400); Red Blood Count 4.41 X10*6/uL (4.60-5.80); Red Cell Distribution Width 13.3 % (11.0-16.0)
[2024-05-15 13:15] LABS: INTERNATIONAL NORM RATIO 1.8 (0.9-1.1); Prothrombin Time 21.3 SEC (10.9-12.4)
[2024-05-15 13:44] LABS: Alanine Aminotransferase 39 U/L (0-40); Albumin Level 3.2 g/dL (3.5-5.0); Alkaline Phosphatase 167 U/L (39-117); Anion Gap 12 (12-20); Aspartate Amino Transferase 118 U/L (5-37); Bilirubin Total 4.6 mg/dL (0.0-1.0); Blood Urea Nitrogen 4 mg/dL (9-16); Calcium 8.8 mg/dL (8.4-10.2); Carbon Dioxide 26 mmol/L (22-29); Chloride 103 mmol/L (96-108); Estimated Glomerular Filt Rate > 60; Glucose Random 165 mg/dL (60-115); Sodium 137 mmol/L (135-145)
== END 2024-05-15 11:36 | disposition home or self-care (01) ==
LOC: HO.HMGCLDS 11:35
PROVIDERS: PCP Internal Medicine; Visit Provider Internal Medicine Gastroenterology
DX: K70.31 Alcoholic cirrhosis of liver with ascites (principal)
CPT/HCPCS: 36415; 80053; 85025; 85610

== ENCOUNTER 2024-05-29 13:36 | Outpatient (AMB) | payer OTHER, SELFPAY ==
--- NOTE | 2024-05-29 13:39 | MHC.OFFVIS ---
Vital Signs 05/29/24 13:41 Height 6 ft 2 in Weight 193 lb BMI 24.8 BP 107/72 Blood Pressure Location Lt brachial Position Sitting Pulse 73 Intake Visit Reasons: Alcoholic cirrhosis of liver with ascites Intake Note: Patient follow up for Alcoholic cirrhosis of liver with ascites. Patient cc: left side discomfort/mass, poor appetite, fatigue, tiredness, swelling on both legs, also he is building some liquid again, denies any other GI issues. Medication prescribe by you in the last visit can not be 90 days, have to be 30 days with refills. Field Cashier Required: No Accompanied by: Self / Same As Patient Allergies No Known Allergies Allergy (Verified 05/29/24 15:50) Medication List - Last Reconciled 05/29/24 by Yemi De Paz MD atenolol 25 mg PO DAILY 90 days buprenorphine-naloxone 2-0.5 mg (Suboxone) 1 film buccal DAILY folic acid 1 mg PO DAILY 90 days furosemide 40 mg PO DAILY 90 days gabapentin 100 mg PO TID lactulose 20 grams (30 mL) PO TID magnesium oxide 400 mg PO BID multivitamin (Daily-Gerri tablet) 1 tab PO DAILY nicotine 21 mg transdermal DAILY 7 days nitrofurantoin macrocrystal 100 mg PO BID 5 days omeprazole 20 mg PO DAILY rifaximin 550 mg PO BID 60 days spironolactone 50 mg (2 x 25 mg) PO DAILY 90 days trazodone 50 mg PO BEDTIME PRN HPI HPI Alcoholic cirrhosis of liver with ascites: Details: GI clinic visit for this 34 YM with ESLD related to ETOH abuse, mood disorder, cholelithiasis for FU after recent hospitalization Pt was hospitalized at [facility] from 04/01 to 04/18/24. TODAY'S VISIT: Patient cc: left side discomfort/mass, poor appetite, fatigue, tiredness, swelling on both legs, also he is building some liquid again. Travelled to [place] x 2 weeks and returned yesterday (on a 2 hour flight) Awake for 6-8 hrs a day and denies recurrent hallucinations Notes some abdomen distension and bilateral lower extremity edema with pain in left calf (Left > right) Hx of DVT last summer and was on Eliquis in the past which was discontinued during past hospitalization Pt scheduled for a pre-liver transplant visit at [facility] on 06/19/24 PAST VISIT: Admitted to inpatient PT and discharged on 04/08/24 and staying with Mom at his brother's house Complains of constant abdominal pain - feels like swelling. Takes Omeprazole for heartburn and denies dysphagia. Has diarrhea and has 4-5 BMs a day Decreased appetite and taking half a meal a day and 1/2 a protein shake. Has been doing some excercise Sleeping 20 to 22 hrs a day. Takes Lorazepam 1 mg at bedtime prn for anxiety. Using a walker since he is unsteady on his feet. Has visual and auditory hallucinations. Last ETOH intake was 2 months ago (early Feb) Patient denies symptoms of heartburn, dysphagia, nausea, vomiting, change in appetite or weight. Denies recent change in bowel habits, constipation, diarrhea, black stools or rectal bleeding. Patient denies major cardiac or pulmonary problems, loud snoring or sleep apnea Denies problems with anesthesia in the past. Denies being on chronic anticoagulation. Patient denies known family history of liver disease, colon polyps, colon cancer or other GI malignancies. LABS IN [facility] : Reviewed IMAGING STUDIES: 04/03/[address] SCAN SHWED: Partial/intermittent distal small bowel obstruction. Internal hernia cannot be excluded. Hepatosplenomegaly and lymphadenopathy. Ascites, moderate volume. Multifocal pneumonia, right lower lung lobes. Probable cholelithiasis. ENDOSCOPIC STUDIES: 04/09/24 LEFT SIDED COLONOSCOPY SHOWED: Colonoscopy Findings: One large polyp detected in the sigmoid colon - not removed since colon was not prepped and INR is 2.5 Moderate hemorrhoids on antegrade exam. Plan: Repeat Colonoscopy in 6 to 8 weeks with colon prep for polyp removal Pt will be scheduled for a FU appt in the GI clinic PAST GI HISTORY BY REVIEW OF MEDICAL RECORDS: 34 YM with ESLD related to ETOH abuse, mood disorder, cholelithiasis admitted to [facility] on 04/01/24 with altered mental status due to hepatic encephalopathy. Patient had been in the ED day prior to presentation for abdominal pain and distention due to symptomatic ascites. Underwent paracentesis which was negative for SBP, had relief and was discharged home. Pt was brought to [facility] ED on 04/01/24 with altered mental status, hallucination. Ammonia 67, He denied alcohol intake over last 3 weeks Mental status has improved with treatment with lactulose and Rifaximin. Pt continues to have abdominal distension RECOMMENDATIONS: 1. Agree with CIWA protocol. 2. Continue lasix and spironolactone for ascites and lactulose and Rifaximin for hepatic encephalopathy 3. Fleet enema x 1 followed by rectal tube placement for abdominal distension PFSH Medical History Postprandial abdominal pain in right upper quadrant COVID Cirrhosis Neuropathy Sensory ataxia Clavicle fracture Alcohol abuse Foot pain, bilateral Abnormal complete blood count Abnormal liver enzymes No known health problems Surgical History Hx of colonoscopy Hx of skin graft Family History Paternal Grandfather Cancer Paternal Grandmother Cancer Social History Household Members: Significant Other Housing: Condominium Are you a primary companion caregiver to a significant other at home: No Do you presently have visiting nurse or other home services: No Unable to assess alcohol history related to: Unknown Alcohol intake: former Comment: patient refusing bed alarm, steady on feet, high fall risk per ASAELWA tracya Patient Tobacco Use Status: Former Tobacco user Years Smoked: 10 e-Cigarette/Vaping Use: Currently Using Substance Use Type: Marijuana service: No 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 status: 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 Review of Systems Const All systems reviewed & are unremarkable except as noted in HPI and below Physical Exam Vital Signs: Last Vital Signs Pulse 73 05/29/24 13:41 BP 107/72 05/29/24 13:41 BMI result Body Mass Index 24.8 Const General: no acute distress, ill appearing (Chronically ill-appearing) and tired appearing Nutritional Appearance: average body habitus Orientation/consciousness: patient oriented x3 Limitations: no limitations HEENT Head: Yes normal to inspection Ears: hearing grossly normal bilaterally Eyes Sclerae: sclerae normal Pupils: Equal, round and reactive pupils present Neck Neck: Yes normal visual inspection Chest Chest palpation & inspection: normal inspection of the chest Resp Effort & Inspection: normal respiratory effort Auscultation: clear to auscultation bilaterally Cardio Palpation: normal PMI Rate: regular rate Rhythm: regular rhythm Heart sounds: S1 normal heart sound present, S2 normal heart sound present and no murmurs GI Inspection: Yes distended and Yes other (with multiple abdominal straie) Palpation (GI): Soft to palpation, nontender and Hepatomegaly present (liver palpable 4 cms below RCM, non-tender) Auscultation: normal bowel sounds Rectal Exam - Male: Yes deferred Skin General skin exam: no rashes or lesions noted Neuro General: patient oriented x3, gait normal and moves all extremities Cranial nerves: Yes Equal, round and reactive pupils present Extrem General: Yes pedal edema (left > right) Psych Appearance: grossly normal Mental Status: mental status grossly normal Assessment & Plan Assessment & Plan (1) Hemochromatosis: Code(s): E83.119 - Hemochromatosis, unspecified Category: Medical Qualifiers: Hemochromatosis type: hereditary Qualified Code(s): E83.110 - Hereditary hemochromatosis (2) Alcoholic cirrhosis of liver with ascites: Code(s): K70.31 - Alcoholic cirrhosis of liver with ascites Category: Medical (3) Bilateral lower extremity edema: Code(s): R60.0 - Localized edema Category: Medical Plan 34 YM with ESLD related to ETOH abuse, mood disorder, cholelithiasis hospitalized at [facility] 04/01 to 04/18/24 with altered mental status due to hepatic encephalopathy. Pt was brought to [facility] ED on 04/01/24 with altered mental status, hallucination and ammonia level of 67, He denied alcohol intake over the preceding 3 weeks Hospital course: Patient was admitted for acute metabolic encephalopathy due to acute hepatic encephalopathy due to alcohol dependence with alcoholic cirrhosis. He was treated with lactulose and rifaximin and is now having 2-3 bowel movements per day and mental status is back to baseline. Patient was also noted to have some delusions when his hepatic encephalopathy seemed to be resolved. Was seen by Psychiatry and received several days of Invega, recommended to then discontinue Invega. Patient hallucinations have not recurred. For anasarca due to cirrhosis patient received albumin and Lasix with significant improvement. For abdominal pain and distention secondary to ileus CT abdomen initially showed intermittent distal small-bowel obstruction but seen by surgery and felt this is more likely ileus. Received neostigmine, followed by colonoscopy with decompression and ileus resolved. Patient is having bowel movements and tolerating solids. Course complicated by hypomagnesemia which was replaced. Also noted to have some hyperglycemia on admission, however, A1c was 4.3 and hyperglycemia resolved. For cholelithiasis was seen by surgery who recommended conservative care, unlikely that this is causing abdominal pain. For history of DVT patient has already completed course of Eliquis. Due to physical conditioning, pt was seen by physical therapy recommended short-term rehab to which patient will be discharged, expected to require less than 30 days Mental status has improved with treatment with lactulose and Rifaximin. Pt returns for Fu after discharge from rehab REDUCING THE RISK OF LIVER PROGRESSION: patient was advised to completely avoid use of alcohol Regular physical activity would also be beneficial. VACCINATIONS: Pt has serological evidence of prior exposure to or vaccination against hepatitis B. I will check Hep A IgG ab SURVEILLANCE FOR GASTROESOPHAGEAL VARICES: I will plan schedule an EGD (screen for varices) and a colonoscopy (for FU of colon polyp). 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 Patient was advised to go to [facility] ER for urgent Doppler ultrasound his lower extremities to rule out DVT. Fu in 6 weeks - appt scheduled 07/13/24 Orders: Orders Hepatitis A IgG Today K70.31 - Alcoholic cirrhosis of liver with ascites Complete Blood Count no Diff Today K70.31 - Alcoholic cirrhosis of liver with ascites Comprehensive Met. Panel Today K70.31 - Alcoholic cirrhosis of liver with ascites Ammonia Today K70.31 - Alcoholic cirrhosis of liver with ascites Ferritin Today K70.31 - Alcoholic cirrhosis of liver with ascites Medications: Changed From furosemide 40 mg PO DAILY 90 days 90 tabs 0RF To furosemide 40 mg PO DAILY 30 days 30 tabs 5RF From omeprazole 20 mg PO DAILY 30 caps 0RF To omeprazole 20 mg PO DAILY 30 days 30 caps 3RF From rifaximin 550 mg PO BID 60 days 120 tabs 3RF K76.82 - Hepatic encephalopathy To rifaximin 550 mg PO BID 30 days 60 tabs 3RF K76.82 - Hepatic encephalopathy From lactulose 20 grams (30 mL) PO TID 3,000 mL 0RF To lactulose 20 grams (30 mL) PO TID 30 days 2,700 mL 3RF From spironolactone 50 mg (2 x 25 mg) PO DAILY 90 days 180 tabs 0RF K70.31 - Alcoholic cirrhosis of liver with ascites To spironolactone 50 mg (2 x 25 mg) PO DAILY 30 days 60 tabs 3RF K70.31 - Alcoholic cirrhosis of liver with ascites Coding Level of Care Code Est Pt Level 4 (04829) Complex EM visit Add On G2211 Diagnoses Hereditary hemochromatosis E83.110 Hemochromatosis type: hereditary Alcoholic cirrhosis of liver with ascites K70.31 Bilateral lower extremity edema R60.0 Time Spent (min) 29
[2024-05-29 13:41] VITALS: BP 107/72; PULSE 73; BMI 24.8
--- OUTSIDE RECORDS SUMMARY | 2024-05-29 17:06 | XMS_ITS | Clinical Summary ---
Author Organization [facility] Address [address] [place] [address] Care Team Providers Care Salesperson Burial Needs Name Role Phone Unavailable Primary Care Provider [...]
== END 2024-05-29 15:54 | disposition home or self-care (01) ==
PROVIDERS: PCP Internal Medicine; Visit Provider Internal Medicine Gastroenterology
DX: E83.110 Hereditary hemochromatosis (principal); K70.31 Alcoholic cirrhosis of liver with ascites; R60.0 Localized edema
CPT/HCPCS: 99214; G2211

== ENCOUNTER → 2024-05-29 13:36 | Outpatient (BNVA) | payer OTHER, SELFPAY | PROVIDERS: PCP Internal Medicine; Visit Provider Internal Medicine Gastroenterology ==

== ENCOUNTER 2024-05-29 15:28 | Emergency (ER) | payer OTHER, SELFPAY ==
--- NOTE | ~2024-05-29 | US_ITS ---
EXAMINATION: US TRIPLEX LOWER EXTREMITY, LEFT CLINICAL INFORMATION: Lower extremity swelling. COMPARISON: None available. TECHNIQUE: Color-flow triplex imaging with spectral analysis and compression Doppler were performed on the left lower extremity. FINDINGS: Respiratory variation, normal compression and augmented flow are noted throughout the left lower extremity. The visualized common femoral vein, superficial femoral vein, profunda femoral vein, popliteal vein and midcalf peroneal and posterior tibial venous segments show no evidence of deep venous thrombosis. There is no Souza's cyst. US/US venous duplex LE LT IMPRESSION: No evidence of deep venous thrombosis involving the left lower extremity. Electronically signed by: Corey Herring MD 05/29/2024 04:32 PM EST
[2024-05-29 15:47] VITALS: BP 105/60; PULSE 79; RESP 18; TEMP 36.6; O2SAT 98; BMI 25.7
--- NOTE | 2024-05-29 15:48 | ED_ITS ---
HPI - General Adult General Chief complaint: General Medical Stated complaint: Ultrasound request by Dr. De Paz call in Related Data Home Medications ?Medication ?Instructions ?Recorded ?Confirmed trazodone 50 mg tablet 50 mg PO BEDTIME PRN 05/08/24 05/29/24 Previous Rx's ?Medication ?Instructions ?Recorded buprenorphine 2 mg-naloxone 0.5 mg 1 film buccal DAILY #30 ea 04/30/24 sublingual film (Suboxone) multivitamin (Daily-Gerri tablet) 1 tab PO DAILY #30 tabs 04/30/24 nitrofurantoin macrocrystal 100 mg 100 mg PO BID 5 days #10 caps 05/05/24 capsule nicotine 21 mg/24 hr daily 21 mg transdermal DAILY 7 days #7 05/08/24 transdermal patch ea gabapentin 100 mg capsule 100 mg PO TID #90 caps 05/17/24 magnesium oxide 400 mg PO BID #60 tabs 05/17/24 atenolol 25 mg tablet 25 mg PO DAILY 90 days #90 tabs 05/29/24 folic acid 1 mg tablet 1 mg PO DAILY 90 days #90 tabs 05/29/24 furosemide 40 mg tablet 40 mg PO DAILY 30 days #30 tabs 05/29/24 lactulose 20 gram/30 mL oral 20 g (30 mL) PO TID 30 days #2,700 05/29/24 solution mL omeprazole 20 mg capsule,delayed 20 mg PO DAILY 30 days #30 caps 05/29/24 release rifaximin 550 mg tablet 550 mg PO BID 30 days #60 tabs 05/29/24 spironolactone 25 mg tablet 50 mg (2 x 25 mg) PO DAILY 30 days 05/29/24 #60 tabs Allergies Allergy/AdvReac Type Severity Reaction Status Date / Time No Known Allergies Allergy Verified 05/29/24 15:50 [facility] Past Medical History Medical History Postprandial abdominal pain in right upper quadrant COVID Cirrhosis Neuropathy Sensory ataxia Clavicle fracture Alcohol abuse Foot pain, bilateral Abnormal complete blood count Abnormal liver enzymes No known health problems Surgical History Hx of colonoscopy Hx of skin graft Family History Family History Paternal Grandfather Cancer Paternal Grandmother Cancer Social History Social History Household Members: Significant Other Housing: Condominium Are you a primary medical care evaluation specialist to a significant other at home: No Do you presently have visiting nurse or other home services: No Unable to assess alcohol history related to: Unknown Alcohol intake: former Comment: patient refusing bed alarm, steady on feet, high fall risk per CIWA protoca Patient Tobacco Use Status: Former Tobacco user Years Smoked: 10 e-Cigarette/Vaping Use: Currently Using Substance Use Type: Marijuana Advance Directives: No Advance Directives Information Provided: No service: No 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 status: 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 RME assessment and note performed by: Lissette Ruiz PA-C This is a 54-duvz-mtn-male, with a hx of DVT (no longer on AC), cirrhosis, who presents emergency department with complaints of left lower extremity swelling and pain. He states that he traveled to [place] when he got off the plane 10 days ago he has had worsening pain. He flew back yesterday and continues to have left leg pain. Dr. De Paz called as an expect, rule out DVT. Patient has no chest pain or shortness of breath. Parencentesis 4 months ago, no other surgeries. Plan: US, further ER eval needed Ultrasound negative, patient re-evaluated, he does have 3+ pitting edema, worse on the left. Labs were ordered Reevaluation(s) Reevaluation #1: Patient left without completing treatment. Medical Decision Making Lab Data 05/29/24 17:25 05/29/24 17:25 Labs: Lab Results 05/29/24 Range/Units 17:25 WBC 5.2 (4.8-10.8) X10*3/uL RBC 3.75 L (4.60-5.80) X10*6/uL Hgb 11.5 L (14.0-18.0) g/dl Hct 34.1 L (42.0-52.0) % MCV 90.9 (80.0-98.0) fL MCH 30.7 (27.0-33.0) pg MCHC 33.7 (31.0-36.0) g/dl RDW 14.2 (11.0-16.0) % Plt Count 174 (160-400) X10*3/uL MPV 10.5 (9.4-12.4) fL Immature Gran % (Auto) 0.2 (0.0-0.4) % Neut % (Auto) 63.7 (45-73) % Lymph % (Auto) 21.9 (20-40) % Placer % (Auto) 7.2 (2-11) % Eos % (Auto) 6.4 H (0-4) % Baso % (Auto) 0.6 (0-2) % Lymph # (Auto) 1.1 L (1.2-4.9) X10*3/uL Placer # (Auto) 0.4 (0.1-1.2) X10*3/uL Eos # (Auto) 0.3 (0.0-0.4) X10*3/uL Baso # (Auto) 0.0 (0.0-0.2) X10*3/uL Abs Immat Gran (auto) 0.01 (0.00-0.03) X10*3/uL Absolute Neuts (auto) 3.3 (2.0-8.3) x10*3/uL Absolute Nucleated RBC 0.000 (0.0-0.012) X10*3/uL Nucleated RBC % (auto) 0.0 (0.0-0.2) /100WBC Sodium 136 (135-145) mmol/L Potassium 4.1 (3.3-5.1) mmol/L Chloride 104 (96-108) mmol/L Carbon Dioxide 27 (22-29) mmol/L Anion Gap 9 L (12-20) BUN 7 L (9-16) mg/dL Creatinine 0.60 (0.5-1.4) mg/dL Estim Creat Clear Calc 196.0 Estimated GFR > 60 Random Glucose 142 H (60-115) mg/dL Calcium 8.5 (8.4-10.2) mg/dL Magnesium 1.7 (1.6-2.6) mg/dL Total Bilirubin 3.9 H (0.0-1.0) mg/dL Direct Bilirubin 1.9 H (0.0-0.5) mg/dL AST 105 H (5-37) U/L ALT 35 (0-40) U/L Alkaline Phosphatase 153 H (39-117) U/L B-Natriuretic Peptide 31 (<100) pg/mL Total Protein 6.1 L (6.5-8.0) g/dL Albumin 2.8 L (3.5-5.0) g/dL Lipase 10 (8-78) U/L Discharge Plan Discharge Clinical Impression: Leg edema Patient Disposition: Left W/O Completing Treatment Prescriptions: No Action gabapentin 100 mg capsule 100 mg PO TID Qty: 90 0RF magnesium oxide 400 mg magnesium tablet 400 mg PO BID Qty: 60 0RF atenolol 25 mg tablet 25 mg PO DAILY 90 Days Qty: 90 0RF folic acid 1 mg tablet 1 mg PO DAILY 90 Days Qty: 90 0RF buprenorphine-naloxone [Suboxone] 2-0.5 mg film 1 film buccal DAILY Qty: 30 0RF Rx Instructions: place 1 strip/tab under (each) side of tongue multivitamin [Daily-Gerri] Tablet 1 tab PO DAILY Qty: 30 0RF nitrofurantoin macrocrystal 100 mg capsule 100 mg PO BID 5 Days Qty: 10 0RF Rx Instructions: must administer with a meal/food trazodone 50 mg tablet 50 mg PO BEDTIME PRN nicotine 21 mg/24 hr patch 24 hour 21 mg transdermal DAILY 7 Days Qty: 7 0RF furosemide 40 mg tablet 40 mg PO DAILY 30 Days Qty: 30 5RF lactulose 20 gram/30 mL solution 20 g PO TID 30 Days Qty: 2700 3RF omeprazole 20 mg capsule,delayed release(DR/EC) 20 mg PO DAILY 30 Days Qty: 30 3RF rifaximin 550 mg tablet 550 mg PO BID 30 Days Qty: 60 3RF spironolactone 25 mg tablet 50 mg PO DAILY 30 Days Qty: 60 3RF Discharge Date/Time: 05/29/24 22:36
[2024-05-29 17:29] LABS: MANUAL DIFF FLAG NO
[2024-05-29 17:35] LABS: Basophils Percent Auto 0.6 % (0-2); Eosinophils Absolute Auto 0.3 X10*3/uL (0.0-0.4); Eosinophils Percent Auto 6.4 % (0-4); Hematocrit 34.1 % (42.0-52.0); Hemoglobin 11.5 g/dl (14.0-18.0); Imm Gran Abs Auto 0.01 X10*3/uL (0.00-0.03); Imm Gran Pct Auto 0.2 % (0.0-0.4); Lymphocytes Absolute Auto 1.1 X10*3/uL (1.2-4.9); Lymphocytes Percent Auto 21.9 % (20-40); Mean Corpuscular HGB Conc 33.7 g/dl (31.0-36.0); Mean Corpuscular Hemoglobin 30.7 pg (27.0-33.0); Mean Corpuscular Volume 90.9 fL (80.0-98.0); Mean Platelet Volume 10.5 fL (9.4-12.4); Monocytes Absolute Auto 0.4 X10*3/uL (0.1-1.2); Monocytes Percent Auto 7.2 % (2-11); Neutrophils Absolute Auto 3.3 x10*3/uL (2.0-8.3); Neutrophils Percent Auto 63.7 % (45-73); Platelet Count 174 X10*3/uL (160-400); Red Blood Count 3.75 X10*6/uL (4.60-5.80); Red Cell Distribution Width 14.2 % (11.0-16.0); White Blood Count 5.2 X10*3/uL (4.8-10.8)
[2024-05-29 17:51] LABS: Alanine Aminotransferase 35 U/L (0-40); Albumin Level 2.8 g/dL (3.5-5.0); Anion Gap 9 (12-20); Aspartate Amino Transferase 105 U/L (5-37); B Type Natriuretic Peptide 31 pg/mL (<100); Bilirubin Direct 1.9 mg/dL (0.0-0.5); Bilirubin Total 3.9 mg/dL (0.0-1.0); Blood Urea Nitrogen 7 mg/dL (9-16); Calcium 8.5 mg/dL (8.4-10.2); Carbon Dioxide 27 mmol/L (22-29); Chloride 104 mmol/L (96-108); Estimated Glomerular Filt Rate > 60; Glucose Random 142 mg/dL (60-115); Lipase 10 U/L (8-78); Magnesium 1.7 mg/dL (1.6-2.6); Potassium 4.1 mmol/L (3.3-5.1); Sodium 136 mmol/L (135-145); Total Protein 6.1 g/dL (6.5-8.0)
[2024-05-29 18:12] LABS: Alkaline Phosphatase 153 U/L (39-117)
--- OUTSIDE RECORDS SUMMARY | 2024-05-29 20:30 | XMS_ITS | Clinical Summary ---
Author Organization [facility] Address [address] [place] [address] Care Team Providers Care Plasterer Rough Name Role Phone Unavailable Primary Care Provider [...]
== END 2024-05-29 22:36 | disposition left against medical advice (07) ==
PROVIDERS: Physician Assistant Medical; Emergency Provider Emergency Medicine; PCP Internal Medicine
DX: R60.0 Localized edema (principal); R06.02 Shortness of breath; Z79.899 Other long term (current) drug therapy; Z87.891 Personal history of nicotine dependence
CPT/HCPCS: 36415; 80048; 80076; 83690; 83735; 83880; 85025; 93971; 99212; 99281; 99284

== ENCOUNTER → 2024-05-29 15:50 | Outpatient (BNV) | payer OTHER, SELFPAY | PROVIDERS: PCP Internal Medicine; Visit Provider Radiology Diagnostic Radiology | DX: R22.42 Localized swelling, mass and lump, left lower limb (principal) | CPT/HCPCS: 93971 ==

== ENCOUNTER 2024-06-07 08:01 | Outpatient (AMB) | payer OTHER, SELFPAY ==
--- OUTSIDE RECORDS SUMMARY | 2024-06-07 08:05 | XMS_ITS | Clinical Summary ---
Author Organization [facility] Address [address] [place] [address] Care Team Providers Care Choke Reamer Name Role Phone Unavailable Primary Care Provider [...]
--- OUTSIDE RECORDS SUMMARY | 2024-06-07 08:05 | XMS_ITS | Clinical Summary ---
Author Organization [employer] Address [address] [place] [address] Care Team Providers Care Artificial Snow Making Machine Operator Name Role Phone Unavailable Primary Care Provider Unavailabl e Encounters Date Type Department Care Team Description 05/30/2024 Patient Outreach [facility] [address] [place] [address] Jarett Heaton MD Care Coordination (CM/CHW outreach) 05/30/2024 Telephone [facility] [address] [place], [place] [phone] Apryl Noble RN Care Management (C3CM- chart review) from Last 3 Months Social History Tobacco Use Types Packs/Day Years Used Date Smoking Tobacco: Never Assessed Sex and Gender Information Value Date Recorded Sex Assigned at Not on file Legal Sex Male 8:20 AM EST Gender Identity Not on file Sexual Orientation Not on file Plan of Treatment Health Maintenance Due Date Last Done Comments Depression Screening 1990 HIV Screening 1990 SDOH Screening 1990 Alcohol/Substance Use Screening 2002 Tobacco Screening 2002 Family Planning (PISQ) 2005 Hepatitis C Screening 01/06/2008 DTaP/Tdap/Td Vaccines (1 - Tdap) 2009 Hepatitis B Vaccines (1 of 3 - 19+ 3-dose series) 2009 COVID-19 Vaccine ( - 2023-2 5 season) 2023 Influenza Vaccine (#1) 2023 Zoster Vaccines (1 of 2) 01/06/2040 RSV Patients and Pa tients Aged 60 years or older (1 - 1-dose 75+ series) 2065 HIB Vaccines Aged Out No longer eligi [...] patient's age to complete this topic Meningococcal Vaccine Aged Out No carlos sharmaine eligible based on patient's age to complete this topic Pneumococcal Vaccine: Pediat rics (0 to 5 Years) and At-Risk Patients (6 to 49) Years) Aged Out No longer eligible b ased on patient's age to complete this topic RSV under 20 months Aged Out No longe r eligible based on patient's age to complete this topic Rotavirus Vaccines Aged Out No longer eligible based on patient's age to complete this topic
--- OUTSIDE RECORDS SUMMARY | 2024-06-07 08:05 | XMS_ITS | Encounter Summary ---
Author Organization [employer] Address [address] [place] [address] Care Team Providers Care Election Judge Name Role Phone Unavailable Primary Care Provider Unavailabl e Reason for Visit * Reason Comments Care Coordination CM/CHW outreach Encounter Details Date Type Department Care Team (Latest Contact Info) Description 05/30/2024 Patient Out[address] [facility] [address] [place] [address] Jarett Heaton MD [address] [place], [place] [phone] Care Coordination (CM/CHW outreach) Social History Tobacco Use Types Packs/Day Years Used Date Smoking Tobacco: Never Assessed Sex and Gender Information Value Date Recorded Sex Assigned at Not on file Legal Sex Male 8:20 AM EST Gender Identity Not on file Sexual Orientation Not on file documented as of this encounter Progress Notes * Katharine Thomas - 05/30/2024 2:21 PM EST CHW Katharine Thomas placed call to patient, per patient he is currently established with [facility] with Dr. Zander Coughlin in [facility], [place] let patient know to call to change insurance. documented in this encounter Plan of Treatment Not on file documented as of this encounter Visit Diagnoses Not on filedocumented in this encounter
--- OUTSIDE RECORDS SUMMARY | 2024-06-07 08:05 | XMS_ITS | Encounter Summary ---
Author Organization [employer] Address [address] [place] [address] Care Team Providers Care Satellite Specialist Name Role Phone Unavailable Primary Care Provider Unavailabl e Reason for Visit * Reason Onset Date Comments Care Management 05/30/2024 [facility]- chart revi ew Encounter Details Date Type Department Care Team (Late st Contact Info) Description 05/30/2024 Telephone [facility] [address] [place] [phone] Apryl Noble RN [address] [place], [place] [phone] Care Management (C3CM- chart review) Social History Tobacco Use Types Packs/Day Years Used Date Smoking Tobacco: Never Assessed Sex and Gender Information Value Date Recorded Sex Assigned at Not on file Legal Sex Male 8:20 AM EST Gender Identity Not on file Sexual Orientation Not on file documented as of this encounter Miscellaneous Notes * Telephone Encounter - Apryl Noble RN - 05/30/2024 8:38 AM EST PATRICK Noble RN, performed chart review, in anticipation of initial assessment with patient, as patient has stratified for [facility] through the ADT feed. History significant for DVT(no longer on ac), cirrhosis, mood disorder, and cholelithiasis. Specialists include [facility] in [facility] (has a pre-liver transplant visit on 06/19/24). ED visits within the last 12 months include [facility] 05/[place]/24 and [facility] [place]/[facility]-04/18/24. Last appointment in PCP office unknown. Patient not yet established with [facility]. Will need a new patient appointment. documented in this encounter Plan of Treatment Not on file documented as of this encounter Visit Diagnoses Not on filedocumented in this encounter
--- NOTE | 2024-06-07 08:23 | MHC.PC.OV ---
Intake Visit Reasons: [phone], [facility] Paperwork Allergies No Known Allergies Allergy (Verified 06/07/24 08:24) Medication List - Last Reconciled 06/07/24 by Zander Coughlin MD atenolol 25 mg PO DAILY 90 days buprenorphine-naloxone 2-0.5 mg (Suboxone) 1 film buccal DAILY folic acid 1 mg PO DAILY 90 days furosemide 40 mg PO DAILY 30 days gabapentin 100 mg PO TID lactulose 20 grams (30 mL) PO TID 30 days magnesium oxide 400 mg PO BID multivitamin (Daily-Gerri tablet) 1 tab PO DAILY nicotine 21 mg transdermal DAILY 7 days omeprazole 20 mg PO DAILY 30 days rifaximin 550 mg PO BID 30 days spironolactone 50 mg (2 x 25 mg) PO DAILY 30 days trazodone 50 mg PO BEDTIME PRN Tobacco use date assessed: 06/07/24 Dental Screening Dental Screen Date: 06/07/24 Did you have a dental visit in the last 12 months?: Yes Did you have a dental problem in the last 6 months where you did not have access to dental care?: No Was dental information given to patient?: Patient has dentist HPI FMLA Paperwork HPI Details History The patient is a 34-year-old male presenting with concerns related to alcoholic liver disease and hepatic encephalopathy. - Recently hospitalized due to ascites-related abdominal pain, likely linked to liver disease despite discontinued alcohol use months prior. - Experiences periodic confusion associated with hepatic encephalopathy. - Utilizes a walker for ambulation and requires assistance with activities such as shopping and managing finances. - Undergoing disability paperwork for November 27, 2023, to November 26, 2024, period. - Currently staying with fianc?e?s parents due to home construction; previously resided with mother in [place]. - Experienced severe lower extremity edema following prolonged sitting on an airplane. Problem List - Alcoholic Liver Disease - Hepatic Encephalopathy - Ascites - Confusion secondary to hepatic encephalopathy Patient Instructions - Ensure to complete the front page of the disability paperwork before submission. - Continue using a walker as needed for mobility assistance. - Seek assistance for shopping and director financial analysis due to confusion and mobility issues. - Monitor any significant changes in fluid retention and report if swelling worsens. Review of Systems - General: No fever no chills - Neurological: No headaches no dizziness - Ear nose throat: No sore throat no hearing difficulty no ear pain - Cardiovascular: No syncope, no chest pain, no palpitations - Gastrointestinal: No nausea vomiting or diarrhea PFSH Medical History Postprandial abdominal pain in right upper quadrant COVID Cirrhosis Neuropathy Sensory ataxia Clavicle fracture Alcohol abuse Foot pain, bilateral Abnormal complete blood count Abnormal liver enzymes No known health problems Surgical History Hx of colonoscopy Hx of skin graft Family History Paternal Grandfather Cancer Paternal Grandmother Cancer Social History Household Members: Significant Other Housing: Condominium Are you a primary student career development specialist to a significant other at home: No Do you presently have visiting nurse or other home services: No Unable to assess alcohol history related to: Unknown Alcohol intake: former Comment: patient refusing bed alarm, steady on feet, high fall risk per CIWA protoca Patient Tobacco Use Status: Former Tobacco user Years Smoked: 10 e-Cigarette/Vaping Use: Currently Using Substance Use Type: Marijuana service: No 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 status: 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 How often do you have a drink containing alcohol?: Never 3. How often do you have six or more drinks on one occasion?: Never Total Score: 0 Score Reviewed/Action Taken: Yes CONNOR-7 AMB Questionnaire CONNOR-7 Date CONNOR - 7 assessed: 05/11/24 Source: Developed by Drs. Michele Braswell, Andree Rodriguez, Niles Meléndez and colleagues, with an educational kel from [employer]. Physical exam (Primary Care) Tobacco/Smoking Status: Tobacco use Status Tobacco use date assessed 06/07/24 06/07/24 08:25 Patient Tobacco Use Status Former Tobacco user 06/07/24 08:25 Tobacco use type 05/09/24 17:37 e-Cigarette/Vaping Use Currently Using 06/07/24 08:25 Thrive Assessment: Date of Thrive Assessment Date Thrive assessed 05/11/24 06/07/24 08:25 Telehealth Telehealth Telehealth Platform: [facility] Location of provider rendering services: practice address Location of patient: address on file Patient Identification confirmed using: Name, : Yes Telehealth method: video Patient verbally consented to treatment: Yes Patient verbally consented to billing insurance company: Yes Patient informed of any privacy concerns related to visit: Yes Minutes spent on Phone/Video with Pt.: 16 Coding Level of Care Code Tele Est Pt Level 3 (86501) Diagnoses Not currently working due to disabled status Z56.0 Alcoholic cirrhosis of liver with ascites K70.31 Alcoholic cirrhosis of liver with ascites K70.31 Hepatic cirrhosis type: alcoholic cirrhosis Assessment & Plan Assessment & Plan (1) Not currently working due to disabled status: Code(s): Z56.0 - Unemployment, unspecified Category: Social Hx (2) Alcoholic cirrhosis of liver with ascites: Code(s): K70.31 - Alcoholic cirrhosis of liver with ascites Category: Medical (3) Cirrhosis of liver with ascites: Code(s): K74.60 - Unspecified cirrhosis of liver; R18.8 - Other ascites Category: Medical Qualifiers: Hepatic cirrhosis type: alcoholic cirrhosis Qualified Code(s): K70.31 - Alcoholic cirrhosis of liver with ascites Plan History The patient is a 34-year-old male presenting with concerns related to alcoholic liver disease and hepatic encephalopathy. - Recently hospitalized due to ascites-related abdominal pain, likely linked to liver disease despite discontinued alcohol use months prior. - Experiences periodic confusion associated with hepatic encephalopathy. - Utilizes a walker for ambulation and requires assistance with activities such as shopping and managing finances. - Undergoing disability paperwork for November 27, 2023, to November 26, 2024, period. - Currently staying with fianc?e?s parents due to home construction; previously resided with mother in [place]. - Experienced severe lower extremity edema following prolonged sitting on an airplane. Problem List - Alcoholic Liver Disease - Hepatic Encephalopathy - Ascites - Confusion secondary to hepatic encephalopathy Patient Instructions - Ensure to complete the front page of the disability paperwork before submission. - Continue using a walker as needed for mobility assistance. - Seek assistance for shopping and director financial analysis due to confusion and mobility issues. - Monitor any significant changes in fluid retention and report if swelling worsens.
== END 2024-06-07 09:00 | disposition home or self-care (01) ==
LOC: HO.HMCC 08:01
PROVIDERS: PCP Internal Medicine; Visit Provider Internal Medicine
DX: K70.31 Alcoholic cirrhosis of liver with ascites (principal); Z56.0 Unemployment, unspecified

== ENCOUNTER → 2024-06-07 08:01 | Outpatient (BNVA) | payer OTHER, SELFPAY | PROVIDERS: PCP Internal Medicine; Visit Provider Internal Medicine ==

== ENCOUNTER 2024-06-15 08:56 | Outpatient (REF) | payer OTHER, SELFPAY ==
--- NOTE | ~2024-06-15 | US_ITS ---
CLINICAL HISTORY: K74.60 - Unspecified cirrhosis of liver - ascites check US abdomen limited Comparison: 04/02/2024 Findings: There is trace perihepatic ascites. The appearance of the liver suggests fatty infiltration without focal lesion. IMPRESSION: 1. Hepatic steatosis. 2. Trace perihepatic ascites This document has been electronically signed by: Daryn Junior MD on 06/16/2024 06:28:06
--- OUTSIDE RECORDS SUMMARY | 2024-06-15 09:24 | XMS_ITS | Clinical Summary ---
Author Organization [facility] Address [address] [place] [address] Care Team Providers Care Hunter Name Role Phone Unavailable Primary Care Provider [...]
--- OUTSIDE RECORDS SUMMARY | 2024-06-15 09:24 | XMS_ITS | Encounter Summary ---
Author Organization [employer] Address [address] [place] [address] Care Team Providers Care Sequencing Machine Operator Name Role Phone Unavailable Primary Care Provider Unavailabl e Reason for Visit * Reason Onset Date Comments Care Management 05/30/2024 [facility]- chart revi ew Encounter Details Date Type Department Care Team (Late st Contact Info) Description 05/30/2024 Telephone [facility] [address] [place] [phone] Apryl Noble RN [address] [place], [place] [phone] Care Management (C3CM- chart review) Social History [...] cirrhosis, mood disorder, and cholelithiasis. Specialists include [facility] in [facility] (has a pre-liver transplant visit on 06/19/24). ED visits within the last 12 months include [facility] 05/29/24 and [facility] 04/01/24-04/18/24. Last appointment in PCP office unknown. Patient not yet established with [facility]. Will need a new patient appointment. documented in this encounter Plan of Treatment Not on file documented as of this encounter Visit Diagnoses Not on filedocumented in this encounter
--- OUTSIDE RECORDS SUMMARY | 2024-06-15 09:24 | XMS_ITS | Clinical Summary ---
Author Organization [employer] Address [address] [place] [address] Care Team Providers Care Environmental Inspector Name Role Phone Unavailable Primary Care Provider Unavailabl e Encounters Date Type Department Care Team Description 05/30/[address] [facility] [address] [place] [phone] Jarett Heaton MD Care Coordination (CM/CHW outreach) 05/30/[address] [facility] [address] [place], [place] [phone] Apryl Noble RN Care Management (C3CM- chart [...]
--- OUTSIDE RECORDS SUMMARY | 2024-06-15 09:24 | XMS_ITS | Encounter Summary ---
Author Organization [employer] Address [address] [place] [address] Care Team Providers Care Senior Director Creative Services Name Role Phone Unavailable Primary Care Provider Unavailabl e Reason for Visit * Reason Comments Care Coordination CM/CHW outreach Encounter Details Date Type Department Care Team (Latest Contact Info) Description 05/30/2024 Patient Outreach [facility] [address] [place] [address] Jarett Heaton MD [address] [place], [place] [phone] Care Coordination (CM/CHW outreach) Social History Tobacco [...] per patient he is currently established with [facility] with Dr. Zander Coughlin in [facility], [place] let patient know to call to change insurance. documented in this encounter Plan of Treatment Not on file documented as of this encounter Visit Diagnoses Not on filedocumented in this encounter
== END 2024-06-15 08:57 | disposition home or self-care (01) ==
LOC: HO.HMGCX 08:56
PROVIDERS: PCP Internal Medicine; Visit Provider Internal Medicine Gastroenterology
DX: K74.60 Unspecified cirrhosis of liver (principal); R18.8 Other ascites
CPT/HCPCS: 76705

== ENCOUNTER → 2024-06-15 09:00 | Outpatient (BNV) | payer OTHER, SELFPAY | PROVIDERS: PCP Internal Medicine; Visit Provider Specialist | DX: K76.0 Fatty (change of) liver, not elsewhere classified (principal) | CPT/HCPCS: 76705 ==

== ENCOUNTER 2024-06-25 14:50 | Outpatient (AMB) | payer MEDICAID, SELFPAY ==
--- NOTE | 2024-06-25 14:52 | A.OFFVIS_ITS ---
Vital Signs 06/25/24 14:53 Height 6 ft 1 in Weight 194 lb BMI 25.6 BP 104/64 Blood Pressure Location Rt brachial Position Sitting Pulse 79 Pulse Source Pulse Oximeter Pulse Oximetry (%) 99 Oxygen Delivery Method Room Air Intake Visit Reasons: New problem Disorientation 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 Allergies No Known Allergies Allergy (Verified 06/25/24 14:56) HPI Comments Details: 34-year-old male presents for follow-up visit of neuropathy. Patient required a recent hospitalization due to abdominal pain secondary to ascites. Patient has abstained from alcohol for many months now. He has seen [facility]. It is unclear to patient if he is a candidate for transplant or not. Patient reports he is compliant with rifaximin. Patient reports he continues to have bilateral lower extremity, more so on the left, painful numbness. He often feels off balance. To have bilateral lower extremity swelling. He continues to have right fingertip numbness. Gabapentin helps some. He also reports episodes of confusion. Reports sleeping difficulties, restlessness. Interval labs from [facility], per patient's portal which he shares with me today: zinc- 49 L vit d 18 L vit A <5 varicella zoster AB- nl TSH- 4.510 H toxoplasma gondii Ab IgG- 50.50 H (norm > 8.79) RPR- neg HIV- neg Quantiferon gold- neg PTT- 31.9 NL PT/INR- 15.1 H/1.4 NL smooth muscle AB- neg protein electrophorses-, serum- abd alpha 1 antitrypsin phenotype- PI*MZ 12/13/2023, HPI: Pt was recently d/c'd from [facility] for tx of alcoholic hepatitis, alcoholic cirrhosis, hepatic encephalopathy, alcohol use disorder with alcohol withdrawal. He is still visibly jaundiced. Pt states he has not drank alcohol since hospital d/c. He states he does not plan to drink again- only was drinking because he was home and bored. He is due for f/u labs- which he will due today. He is aware of his other f/u appts needed. Pt reports after his last visit in Apr, he went to the ER and was diagnosed w/ a LLE DVT and then developed a RLE DVT. States he has been tx'd w/ Eliquis. He states hematology feels this is likely familial- as he has strong family PE and blood clots. He states he his neuropathy symptoms make it difficult for him to walk. He can not feel his toes or the soles of his feet, more son on the left. This makes him unbalanced. He has not fallen since he fell off the ladder before being referred here. He does also have numbness in his right fingertips. Some days are worse than others. The Gabapentin helps some (60-70%) with the discomfort but not the numbness. He does have BLE swelling. He notes that his compression boots for the DVTs is helpful. Denies BLE weakness. 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 [facility] Medical History Postprandial abdominal pain in right upper quadrant COVID Cirrhosis Neuropathy Sensory ataxia Clavicle fracture Alcohol abuse Foot pain, bilateral Abnormal complete blood count Abnormal liver enzymes No known health problems Surgical History Hx of colonoscopy Hx of skin graft Family History Paternal Grandfather Cancer Paternal Grandmother Cancer Social History Household Members: Significant Other Housing: [facility] Are you a primary healthcare corporate account director to a significant other at home: No Do you presently have visiting nurse or other home services: No Unable to assess alcohol history related to: Unknown Alcohol intake: former Comment: patient refusing bed alarm, steady on feet, high fall risk per ROBBY cummings Patient Tobacco Use Status: Former Tobacco user Years Smoked: 10 e-Cigarette/Vaping Use: Currently Using Substance Use Type: Marijuana service: No 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 status: 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 Physical Exam Vital Signs: Last Vital Signs Pulse 79 06/25/24 14:53 BP 104/64 06/25/24 14:53 Pulse Ox 99 06/25/24 14:53 Oxygen Delivery Method Room Air 06/25/24 14:53 BMI result Body Mass Index 25.6 Const General: cooperative, no acute distress, ill appearing chronically and tired a ppearing Orientation/consciousness: patient oriented x3 Resp Effort & Inspection: normal respiratory effort and able to speak in complete sentences Neuro General: patient oriented x3 Cranial nerves: Yes CN's II-XII intact bilaterally Cognition (Neuro): normal cognition Psych Appearance: grossly normal Mental Status: mental status grossly normal Speech and movement: Normal speech and movement present Affect: normal affect Attitude: cooperative Assessment & Plan Assessment & Plan (1) Confusion: Code(s): R41.0 - Disorientation, unspecified Category: Medical (2) Sensory ataxia: Code(s): R27.8 - Other lack of coordination Category: Medical (3) Neuropathy: Comment: likely alcoholic Code(s): G62.9 - Polyneuropathy, unspecified Category: Medical Plan Patient advised to undergo brain MRI with and without contrast. Order labs to round out the workup and sleeping. Trialing increasing gabapentin from 100 mg 3 times a day to 200 mg 3 times a day. Pt should to abstain from work at this time, he is at high risk for falls and injury d/t BLE peripheral neuropathy and episodes of cognitive impairment. Will follow-up upon review of above and patient to follow-up in clinic in 6 months or sooner prn. Medications: New lorazepam 1 mg PO BEDTIME PRN 30 tabs 1RF anxiety 30 days Changed From gabapentin 100 mg PO TID 90 caps 0RF To gabapentin 200 mg (2 x 100 mg) PO TID 180 caps 3RF 30 days Coding Level of Care Code Est Pt Level 4 (04375) Diagnoses Confusion R41.0 Sensory ataxia R27.8 Neuropathy G62.9
[2024-06-25 14:53] VITALS: BP 104/64; PULSE 79; O2SAT 99; BMI 25.6
--- OUTSIDE RECORDS SUMMARY | 2024-06-25 16:46 | XMS_ITS | Clinical Summary ---
Author Organization [employer] Address [address] [place] [address] Care Team Providers Care Fish Pitcher Name Role Phone Unavailable Primary Care Provider Unavailabl e Encounters Date Type Department Care Team Description 05/30/2024 Patient Outreach [facility] [address] [place] [phone] Jarett Heaton MD Care Coordination (CM/CHW outreach) 05/30/2024 Telephone [facility] [address] [place], [place] [phone] Apryl Noble RN Care Management (C3CM- chart [...]
--- OUTSIDE RECORDS SUMMARY | 2024-06-25 16:46 | XMS_ITS | Clinical Summary ---
Author Organization [facility] Address [address] [place] [address] Care Team Providers Care Energy Advisor Name Role Phone Unavailable Primary Care Provider [...]
== END 2024-06-25 15:49 | disposition home or self-care (01) ==
LOC: HO.HSMS 14:51
PROVIDERS: PCP Internal Medicine; Visit Provider Nurse Practitioner Family
DX: R41.0 Disorientation, unspecified (principal); R27.8 Other lack of coordination; G62.9 Polyneuropathy, unspecified
CPT/HCPCS: 99214

== ENCOUNTER → 2024-06-25 14:50 | Outpatient (BNVA) | payer OTHER, SELFPAY | PROVIDERS: PCP Internal Medicine; Visit Provider Nurse Practitioner Family | DX: R41.0 Disorientation, unspecified (principal); R27.8 Other lack of coordination; G62.9 Polyneuropathy, unspecified | CPT/HCPCS: 99212 ==

== ENCOUNTER → 2024-07-24 15:45 | Outpatient (BNV) | payer OTHER, SELFPAY | PROVIDERS: PCP Internal Medicine; Visit Provider Radiology Diagnostic Radiology | DX: G31.9 Degenerative disease of nervous system, unspecified (principal); R41.0 Disorientation, unspecified | CPT/HCPCS: 70553 ==

== ENCOUNTER 2024-07-24 15:47 | Outpatient (REF) | payer OTHER, SELFPAY ==
--- NOTE | ~2024-07-24 | MR_ITS ---
EXAMINATION: MR BRAIN WITHOUT THEN WITH IV CONTRAST HISTORY: R41.0 - Disorientation, unspecified TECHNIQUE: Sagittal T1, and axial T1, FLAIR, T2, gradient echo, and diffusion weighted MR images of the brain were obtained. Subsequently, axial and coronal T1-weighted images were obtained after the administration of intravenous gadolinium. 9 mL Gadavist was administered. COMPARISON: Correlation is made with an unenhanced head CT dated 11/28/2023. FINDINGS: There is diffuse prominence of the ventricular system and cortical sulci consistent with atrophy. This most prominently involves the cerebellum and is greater than expected for a patient of this age. However, this is unchanged from the prior head CT. Dickens/white differentiation is normal. There is no mass effect or midline shift. There is no hydrocephalus. No intra or extra-axial fluid collections are identified. There are no foci of restricted diffusion. There is no abnormal contrast enhancement. Normal vascular flow voids are noted in the basilar and carotid arteries. The visualized paranasal sinuses are clear. MR/MR head/brain wo/w con IMPRESSION: Cerebral atrophy, greater than expected for a patient of this age, but unchanged. Clinical correlation is recommended. Otherwise unremarkable MRI of the brain without and with contrast. Electronically signed by: Michele Jo MD 07/26/2024 08:48 AM EDT
[2024-07-24] MEDS: gadobutroL 10 ML VIAL IVPUSH (16:31)
== END 2024-07-24 15:48 | disposition home or self-care (01) ==
LOC: HO.MRI 15:47
PROVIDERS: PCP Internal Medicine; Visit Provider Nurse Practitioner Family
DX: R41.0 Disorientation, unspecified (principal); K70.31 Alcoholic cirrhosis of liver with ascites; D68.9 Coagulation defect, unspecified; I10 Essential (primary) hypertension
CPT/HCPCS: 70553; A9585

== ENCOUNTER 2024-10-03 14:51 | Outpatient (REF) | payer OTHER, SELFPAY ==
[2024-10-03 16:25] LABS: MANUAL DIFF FLAG NO
[2024-10-03 16:39] LABS: Hematocrit 35.9 % (42.0-52.0); Hemoglobin 12.7 g/dl (14.0-18.0); Imm Gran Abs Auto 0.01 X10*3/uL (0.00-0.03); Imm Gran Pct Auto 0.3 % (0.0-0.4); Lymphocytes Absolute Auto 0.9 X10*3/uL (1.2-4.9); Mean Corpuscular HGB Conc 35.4 g/dl (31.0-36.0); Mean Corpuscular Hemoglobin 31.5 pg (27.0-33.0); Mean Corpuscular Volume 89.1 fL (80.0-98.0); NRBC Abs Auto 0.000 X10*3/uL (0.0-0.012); NRBC Pct Auto 0.0 /100WBC (0.0-0.2); Platelet Count 113 X10*3/uL (160-400); Red Blood Count 4.03 X10*6/uL (4.60-5.80); White Blood Count 3.6 X10*3/uL (4.8-10.8)
[2024-10-03 16:44] LABS: INTERNATIONAL NORM RATIO 1.5 (0.9-1.1); Prothrombin Time 17.3 SEC (10.9-12.4)
[2024-10-03 17:14] LABS: Alanine Aminotransferase 28 U/L (0-40); Albumin Level 3.4 g/dL (3.5-5.0); Alkaline Phosphatase 189 U/L (39-117); Anion Gap 12 (12-20); Aspartate Amino Transferase 79 U/L (5-37); Blood Urea Nitrogen 6 mg/dL (9-16); Calcium 8.6 mg/dL (8.4-10.2); Carbon Dioxide 31 mmol/L (22-29); Chloride 98 mmol/L (96-108); Estimated Glomerular Filt Rate > 60; Potassium 3.4 mmol/L (3.3-5.1); Sodium 138 mmol/L (135-145); Total Protein 6.2 g/dL (6.5-8.0)
== END 2024-10-03 14:52 | disposition home or self-care (01) ==
LOC: HO.HMGCLDS 14:51
PROVIDERS: PCP Internal Medicine; Referring Provider Internal Medicine Gastroenterology; Visit Provider Internal Medicine
DX: Z00.01 Encounter for general adult medical examination with abnormal findings (principal); G62.1 Alcoholic polyneuropathy; R27.8 Other lack of coordination; K70.31 Alcoholic cirrhosis of liver with ascites; K70.10 Alcoholic hepatitis without ascites; F33.1 Major depressive disorder, recurrent, moderate; Z56.0 Unemployment, unspecified; Z13.31 Encounter for screening for depression
CPT/HCPCS: 36415; 80053; 85025; 85610; 96127; 99395

== ENCOUNTER 2024-10-03 14:51 | Outpatient (AMB) | payer OTHER, SELFPAY ==
--- NOTE | 2024-10-03 14:54 | MHC.PC.OV ---
Vital Signs 10/03/24 14:55 Height 6 ft 1 in Weight 194 lb 8 oz BMI 25.7 BP 100/62 Blood Pressure Location Rt brachial Position Sitting Pulse 66 Pulse Source Pulse Oximeter Temp 98.3 F Temp Source Oral Pulse Oximetry (%) 97 Oxygen Delivery Method Room Air Intake Visit Reasons: Annual PE Quill Reamer Required: No Allergies No Known Allergies Allergy (Verified 10/03/24 14:59) Medication List - Last Reconciled 10/03/24 by Zander Coughlin MD acamprosate 333 mg PO BID 30 days buprenorphine-naloxone 2-0.5 mg (Suboxone) 1 film buccal DAILY carvedilol 12.5 mg PO BID folic acid 1 mg PO DAILY 90 days furosemide 40 mg PO DAILY 30 days gabapentin 200 mg (2 x 100 mg) PO TID 30 days lactulose 20 grams (30 mL) PO TID 30 days lorazepam 1 mg PO BEDTIME PRN 30 days magnesium oxide 400 mg PO BID multivitamin (Daily-Gerri tablet) 1 tab PO DAILY nicotine 21 mg transdermal DAILY 7 days omeprazole 20 mg PO DAILY 30 days rifaximin 550 mg PO BID 30 days spironolactone 50 mg (2 x 25 mg) PO DAILY 90 days thiamine HCl (vitamin B1) 100 mg PO DAILY torsemide 5 mg PO DAILY Tobacco use date assessed: 10/03/24 Dental Screening Dental Screen Date: 06/07/24 Did you have a dental visit in the last 12 months?: Yes Did you have a dental problem in the last 6 months where you did not have access to dental care?: No Was dental information given to patient?: Patient has dentist HPI Annual PE HPI Details Physical exam appointment - The patient is a 34-year-old male presenting with issues related to liver health and medication management. - The patient experienced liver failure and has been informed his status for liver transplantation is currently deferred. Patient is linked with [facility] - He noted his last liver-related emergency room visit was in May, followed by an evaluation at [facility] on September 19. - The patient has been experiencing sleep disturbances, particularly insomnia, since his lorazepam dosage was reduced from three daily doses to one every other day, about a month ago. He is currently seeing psych med prescriber - He has neuropathy, which has been persistent. Additionally, he reported exacerbated symptoms during a recent flight. Patient is established with Neurology - Recent laboratory findings from September 13 indicated a hemoglobin level of 13.3, slightly anemic, but stable liver enzymes and kidney functions. - The patient is dealing with cognitive issues, specifically difficulties in maintaining focus and memory lapses, which prompted a past neurology consultation. Medical History: - Liver failure - Severe alcohol use disorder, in early remission - Anxiety, unspecified - Depression, moderate - Opioid use disorder - Insomnia - Neuropathy - Anemia Social History: - The patient has ceased alcohol consumption as indicated by his liver transplant deferral. - A history of opioid use is present, currently managed with Suboxone. Health Maintenance - Monitored for liver enzyme levels and anemia status. - Ongoing observation in relation to liver transplant eligibility. [place] of Care - Patient engaged with various health professionals including gastroenterology and neurology specialists. Diagnostic results - Labs: Hemoglobin 13.3, bilirubin 2.8, AST 93, alkaline phosphatase 195, proteins 6.3, albumin 3.4. - Previous evaluations concerning liver function and liver transplant eligibility. Patient Instructions - Continue to collaborate with your prescriber for medication management. - Follow up regarding insomnia and anxiety management. - Attend upcoming neurology and gastroenterology appointments. - Discuss any medication concerns with the prescribed healthcare providers. Patient is taking no medication from this office Follow up in 1 year for physical exam Review of Systems - General: No fever no chills - Neurological: No headaches no dizziness - Ear nose throat: No sore throat no hearing difficulty no ear pain - Cardiovascular: No syncope, no chest pain, no palpitations - Gastrointestinal: No nausea vomiting or diarrhea - Endocrine: No polyuria polydipsia no heat intolerance - Genitourinary: No dysuria - Skin: No new complaints Physical Exam General: Cooperative, healthy appearing, comfortable, no acute distress, looks weak Orientation: Patient oriented x3 Head: Normal to inspection Ears: Within normal limit visually Nose: Normal external nose present Face and sinus: Normal facial exam Eyes: Appearance normal, extraocular movement intact pupils reactive conjunctiva pale Neck: Normal visual inspection and supple Respiratory: Normal respiratory effort and able to speak in complete sentences. Clear to auscultation, no stridor Cardiovascular: S1 and S2 RRR GI: Normal to inspection. Soft to palpation and nontender Skin: Turgor normal, no acute findings Neuro: Patient oriented x3, balance failed Extremities: No edema at this time, reports swelling that can get severe. Off and on [facility] Medical History Postprandial abdominal pain in right upper quadrant COVID Cirrhosis Neuropathy Sensory ataxia Clavicle fracture Alcohol abuse Foot pain, bilateral Abnormal complete blood count Abnormal liver enzymes No known health problems Surgical History Hx of colonoscopy Hx of skin graft Family History Paternal Grandfather Cancer Paternal Grandmother Cancer Social History Household Members: Significant Other Housing: Condominium Are you a primary child care assistant to a significant other at home: No Do you presently have visiting nurse or other home services: No Unable to assess alcohol history related to: Unknown Alcohol intake: former Comment: patient refusing bed alarm, steady on feet, high fall risk per CIWA protoca Patient Tobacco Use Status: Former Tobacco user Years Smoked: 10 e-Cigarette/Vaping Use: Currently Using Substance Use Type: Marijuana service: No 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 status: 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 1. Little interest or pleasure in doing things: not at all 2. Feeling down, depressed, or hopeless: several days 3. Trouble falling or staying asleep, or sleeping too much: more than half the days 4. Feeling tired or having little energy: nearly every day 5. Poor appetite or overeating: several days 6. Feeling bad about yourself - or that you are a failure or have let yourself or your family down: more than half the days 7. Trouble concentrating on things, such as reading the newspaper or watching television: nearly every day 8. Moving or speaking so slowly that other people could have noticed. Or the opposite - being so fidgety or restless that you have been moving around a lot more than usual: several days 9. Thoughts that you would be better off or of hurting yourself in some way: several days Total score: 14 Depression Screening Interpretation: Positive Depression Screening Follow-up: Existing condition and In treatment Depression Screening Done: Yes 76172 - PHQ-9 Billing: Yes Source: Developed by Drs. Michele Braswell, Andree Rodriguez, Niles Meléndez and colleagues, with an educational kel from [employer]. Thrive Questionnaire Date Thrive assessed: 10/03/24 I am a: Parent/Caregiver What is your living situation today?: I have a place to live, but I am worried about losing it in the future Within the past 12 months, did the food you bought not last and you didn't have the money to get more?: I choose not to answer this question Within the past 12 months, did you worry whether your food would run out before you got money to buy more?: I choose not to answer this question Do you have trouble paying for medicines?: Yes Do you have trouble getting transportation to medical appointments?: Yes Do you have trouble paying your heating and electricity bill?: I choose not to answer this question Do you have trouble taking care of your child, family member or friend?: I choose not to answer this question Do you have trouble with day-to-day activities such as bathing, preparing meals, shopping, managing finances, etc.?: I choose not to answer this question Are you currently unemployed and looking for a job?: I choose not to answer this question Are you interested in more education?: I choose not to answer this question Currently or been in a relationship where the following occur: No concerns reported THRIVE Score: 2 AUDIT C Alcohol Use Questionnaire (AUDIT-C) 1. How often do you have a drink containing alcohol?: Never 3. How often do you have six or more drinks on one occasion?: Never Total Score: 0 Score Reviewed/Action Taken: Yes CONNOR-7 AMB Questionnaire CONNOR-7 Date CONNOR - 7 assessed: 05/11/24 Source: Developed by Drs. Michele Braswell, Andree Rodriguez, Niles Meléndez and colleagues, with an educational kel from [employer]. Physical exam (Primary Care) Vital Signs: Last Vital Signs Temp 98.3 F 10/03/24 14:55 Pulse 66 10/03/24 14:55 BP 100/62 10/03/24 14:55 Pulse Ox 97 10/03/24 14:55 Oxygen Delivery Method Room Air 10/03/24 14:55 BMI result Body Mass Index 25.7 Tobacco/Smoking Status: Tobacco use Status Tobacco use date assessed 10/03/24 10/03/24 15:03 Patient Tobacco Use Status Former Tobacco user 10/03/24 15:03 Tobacco use type 08/14/24 12:12 e-Cigarette/Vaping Use Currently Using 10/03/24 15:03 PHQ-9: PHQ-9 Score PHQ-9: Total score 5 10/03/24 15:03 Depression Screening Interpretation: Positive Depression Screening Follow-up: Existing condition and In treatment Thrive Assessment: Date of Thrive Assessment Date Thrive assessed 10/03/24 10/03/24 15:03 Currently or been in a relationship where the following occur: No concerns reported Coding Level of Care Code Est Pt Level 3 (53256) Est Pt Prev Care 18-39y(48066) Diagnoses Encounter for general adult medical examination with abnormal findings Z00.01 Alcoholic peripheral neuropathy G62.1 Sensory ataxia R27.8 Alcoholic cirrhosis of liver without ascites K70.30 Hepatic cirrhosis type: alcoholic cirrhosis Ascites presence: without ascites Alcoholic hepatitis without ascites K70.10 Ascites presence: without ascites Moderate episode of recurrent major depressive disorder F33.1 Active/Remission status: currently active Major depression episode severity: moderate Not currently working due to disabled status Z56.0 Additional Codes PHQ-9 - 53228 - PHQ-9 Billing: Yes ([id number]) Assessment & Plan Assessment & Plan (1) Encounter for general adult medical examination with abnormal findings: Code(s): Z00.01 - Encounter for general adult medical examination with abnormal findings Category: Medical (2) Alcoholic peripheral neuropathy: Code(s): G62.1 - Alcoholic polyneuropathy Category: Medical (3) Sensory ataxia: Code(s): R27.8 - Other lack of coordination Category: Medical (4) Cirrhosis: Code(s): K74.60 - Unspecified cirrhosis of liver Category: Medical Qualifiers: Hepatic cirrhosis type: alcoholic cirrhosis Ascites presence: without ascites Qualified Code(s): K70.30 - Alcoholic cirrhosis of liver without ascites (5) Alcoholic hepatitis: Code(s): K70.10 - Alcoholic hepatitis without ascites Category: Medical Qualifiers: Ascites presence: without ascites Qualified Code(s): K70.10 - Alcoholic hepatitis without ascites (6) Major depression, recurrent: Code(s): F33.9 - Major depressive disorder, recurrent, unspecified Category: Medical Qualifiers: Active/Remission status: currently active Major depression episode severity: moderate Qualified Code(s): F33.1 - Major depressive disorder, recurrent, moderate (7) Not currently working due to disabled status: Code(s): Z56.0 - Unemployment, unspecified Category: Social Hx Plan Physical exam appointment - The patient is a 34-year-old male presenting with issues related to liver health and medication management. - The patient experienced liver failure and has been informed his status for liver transplantation is currently deferred. Patient is linked with [facility] - He noted his last liver-related emergency room visit was in May, followed by an evaluation at [facility] on September 19. - The patient has been experiencing sleep disturbances, particularly insomnia, since his lorazepam dosage was reduced from three daily doses to one every other day, about a month ago. He is currently seeing psych med prescriber - He has neuropathy, which has been persistent. Additionally, he reported exacerbated symptoms during a recent flight. Patient is established with Neurology - Recent laboratory findings from September 13 indicated a hemoglobin level of 13.3, slightly anemic, but stable liver enzymes and kidney functions. - The patient is dealing with cognitive issues, specifically difficulties in maintaining focus and memory lapses, which prompted a past neurology consultation. Medical History: - Liver failure - Severe alcohol use disorder, in early remission - Anxiety, unspecified - Depression, moderate - Opioid use disorder - Insomnia - Neuropathy - Anemia Social History: - The patient has ceased alcohol consumption as indicated by his liver transplant deferral. - A history of opioid use is present, currently managed with Suboxone. Health Maintenance - Monitored for liver enzyme levels and anemia status. - Ongoing observation in relation to liver transplant eligibility. [place] of Care - Patient engaged with various health professionals including gastroenterology and neurology specialists. Diagnostic results - Labs: Hemoglobin 13.3, bilirubin 2.8, AST 93, alkaline phosphatase 195, proteins 6.3, albumin 3.4. - Previous evaluations concerning liver function and liver transplant eligibility. Patient Instructions - Continue to collaborate with your prescriber for medication management. - Follow up regarding insomnia and anxiety management. - Attend upcoming neurology and gastroenterology appointments. - Discuss any medication concerns with the prescribed healthcare providers. Patient is taking no medication from this office Follow up in 1 year for physical exam
[2024-10-03 14:55] VITALS: BP 100/62; PULSE 66; TEMP 36.8; O2SAT 97; BMI 25.7
--- OUTSIDE RECORDS SUMMARY | 2024-10-03 15:18 | XMS_ITS | Clinical Summary ---
Author Organization [employer] Address [address] [place] [address] Care Team Providers Care Central Melt Specialist Name Role Phone Unavailable Primary Care [...] 1990 HIV Screening 1990 SDOH Screening 1990 Disability Screening 1990 Alcohol/Substance Use Screening 2002 Tobacco Screening 2002 Family Planning (PISQ) 2005 Hepatitis C Screening 01/06/2008 DTaP/Tdap/Td Vaccines (1 - Tdap) 2009 Hepatitis B Vaccines (1 of 3 - 19+ 3-dose series) 2009 COVID-19 Vaccine ( - 2023-2 5 season) 2023 Influenza Vaccine (#1) 2024 Zoster Vaccines (1 of 2) 01/06/2040 RSV [...] age to complete this topic Meningococcal B Vaccine Aged Out No l onger eligible based on patient's age to complete this topic Meningococcal Vaccine Aged Out No carlos sharmaine eligible based on patient's age to complete this topic Pneumococcal Vaccine: Pediat rics (0 to 5 Years) and At-Risk Patients (6 to 49) Years Aged Out No longer eligible b ased on patient's age to complete this topic RSV under 20 months Aged Out No longe r eligible based on patient's age to complete this topic Rotavirus Vaccines Aged Out No longer eligible based on patient's age to complete this topic
--- OUTSIDE RECORDS SUMMARY | 2024-10-03 15:18 | XMS_ITS | Clinical Summary ---
Author Organization [facility] Address [address] [place] [address] Care Team Providers Care Hiv Cts Specialist Name Role Phone Unavailable Primary Care [...] (2023-2 5 season) 2023 Influenza Vaccine (#1) 2024 HIB Vaccines Aged Out No longer eligi [...] 5 Years) and At-Risk Patients (6 to 49 Years) Aged Out No longer eligible b ased on patient's age to complete this topic RSV Immunization Patients Un don 20 months Aged Out No longer eligible b ased on patient's age to complete this topic Varicella Vaccines Aged Out No longer eligible based on patient's age to complete this topic
== END 2024-10-03 15:17 | disposition home or self-care (01) ==
LOC: HO.HMCC 14:52
PROVIDERS: PCP Internal Medicine; Visit Provider Internal Medicine
DX: Z00.01 Encounter for general adult medical examination with abnormal findings (principal); K70.30 Alcoholic cirrhosis of liver without ascites; K70.10 Alcoholic hepatitis without ascites; F33.1 Major depressive disorder, recurrent, moderate; G62.1 Alcoholic polyneuropathy; R27.8 Other lack of coordination; Z56.0 Unemployment, unspecified

== ENCOUNTER 2024-11-01 09:45 | Outpatient (AMB) | payer OTHER, SELFPAY ==
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
[2024-11-01 09:52] VITALS: BP 102/62; PULSE 70; O2SAT 99; BMI 25.5
--- OUTSIDE RECORDS SUMMARY | 2024-11-01 10:14 | XMS_ITS | Clinical Summary ---
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
--- OUTSIDE RECORDS SUMMARY | 2024-11-01 10:14 | XMS_ITS | Clinical Summary ---
Author Organization [employer] Address [address] [place] [address] Care Team Providers Care Die Machine Operator Name Role Phone Unavailable Primary [...] Tobacco Screening 2002 Family Planning (PISQ) 2005 HPV Vaccines (1 - Male 3-dos e series) 2005 Hepatitis C Screening 01/06/2008 DTaP/Tdap/Td Vaccines (1 - Tdap) 2009 Hepatitis B Vaccines (1 of 3 - 19+ 3-dose series) 2009 COVID-19 Vaccine (1 - 2023-2 5 season) 2023 Influenza Vaccine [...]
== END 2024-11-01 10:53 | disposition home or self-care (01) ==
LOC: HO.HSMS 09:46
PROVIDERS: PCP Internal Medicine; Visit Provider Physician Assistant Medical
DX: G47.19 Other hypersomnia (principal); R20.2 Paresthesia of skin; G62.1 Alcoholic polyneuropathy; G62.9 Polyneuropathy, unspecified; F10.90 Alcohol use, unspecified, uncomplicated
CPT/HCPCS: 99214

== ENCOUNTER → 2024-11-01 09:45 | Outpatient (BNVA) | payer OTHER, SELFPAY | PROVIDERS: PCP Internal Medicine; Visit Provider Physician Assistant Medical | DX: G62.1 Alcoholic polyneuropathy (principal); G47.19 Other hypersomnia; R20.2 Paresthesia of skin; F10.90 Alcohol use, unspecified, uncomplicated | CPT/HCPCS: 99212 ==

== ENCOUNTER 2024-11-22 12:56 | Outpatient (AMB) | payer OTHER, SELFPAY ==
--- NOTE | 2024-11-22 13:03 | A.OFFVIS_ITS ---
Vital Signs 11/22/24 13:06 Height 6 ft 2 in Weight 190 lb BMI 24.4 BP 103/62 Blood Pressure Location Lt brachial Position Sitting Pulse 62 Pulse Oximetry (%) 98 Oxygen Delivery Method Room Air Intake Visit Reasons: 3 MO F/U Cirrhosis Intake Note: Patient 3 month follow up for Cirrhosis Patient cc: always tired, no sleeping, and some dizziness, denies any other GI issues. System Admin Required: No Accompanied by: Self / Same As Patient Allergies No Known Allergies Allergy (Verified 12/10/24 08:04) Medication List - Last Reconciled 11/22/24 by Yemi De Paz MD acamprosate 333 mg PO BID 30 days buprenorphine-naloxone 2-0.5 mg (Suboxone) 1 film buccal DAILY carvedilol 12.5 mg PO BID folic acid 1 mg PO DAILY 90 days gabapentin 300 mg (3 x 100 mg) PO TID 30 days MDD 900 lactulose 20 grams (30 mL) PO TID 30 days lorazepam 1 mg PO BEDTIME PRN 30 days lorazepam 1 mg PO BEDTIME PRN 30 days magnesium oxide 400 mg PO BID melatonin 5 mg PO BEDTIME PRN 3 months MDD 5mg multivitamin (Daily-Gerri tablet) 1 tab PO DAILY nicotine 21 mg transdermal DAILY 7 days omeprazole 20 mg PO DAILY 30 days rifaximin 550 mg PO BID 30 days spironolactone 50 mg (2 x 25 mg) PO DAILY 90 days thiamine HCl (vitamin B1) 100 mg PO DAILY torsemide 5 mg PO DAILY HPI HPI 3 MO F/U Cirrhosis: Details: GI clinic visit for this 34 YM with ESLD related to ETOH abuse, mood disorder, c holelithiasis for FU after recent hospitalization Pt was hospitalized at [facility] from 04/01 to 04/18/24. TODAY'S VISIT: Patient follow up for Alcoholic cirrhosis of liver with ascites. Patient cc: Patient cc: always tired, no sleeping, and some dizziness. Continues to have sleep disturbance for the past 6 months - went to sleep at 6:30 am and woke up at 9:30 am. Appetite is good. Notes improvement in lower extremity edema Waiting to hear back from PT for physical therapy (Sleep and Neuro Dept) for Neuropathy No improvement in Neuropathy - getting a little worse Living with his fiance's parents while apartment is being renovated. Has been walking and biked a few times FU appt at [facility] [place] in Jan, 2025 PAST VISIT: Complains of difficulty sleeping - thinks it may be since he is out of one of his medication (Lorazepam). He was taking a Lorazepam and a melatonin at bedtime. Scheduled for a FU appt end of September at [facility] [place] [facility]. Lower extremity edema has improved and legs are still numb. If he sleeps at night, he can sleep for 10 hours. If he sleeps during the day - usually 6-8 hrs. Appetite is good. Patient cc: left side discomfort/mass, poor appetite, fatigue, tiredness, swelling on both legs, also he is building some liquid again. Travelled to [place] x 2 weeks and returned yesterday (on a 2 hour flight) Awake for 6-8 hrs a day and denies recurrent hallucinations Notes some abdomen distension and bilateral lower extremity edema with pain in left calf (Left > right) Hx of DVT last summer and was on Eliquis in the past which was discontinued during past hospitalization Pt scheduled for a pre-liver transplant visit at [facility] [place] on 06/19/24 Admitted to inpatient PT and discharged on 04/08/24 and staying with Mom at his brother's house Complains of constant abdominal pain - feels like swelling. Takes Omeprazole for heartburn and denies dysphagia. Has diarrhea and has 4-5 BMs a day Decreased appetite and taking half a meal a day and 1/2 a protein shake. Has been doing some excercise Sleeping 20 to 22 hrs a day. Takes Lorazepam 1 mg at bedtime prn for anxiety. Using a walker since he is unsteady on his feet. Has visual and auditory hallucinations. Last ETOH intake was 2 months ago (early Feb) Patient denies symptoms of heartburn, dysphagia, nausea, vomiting, change in appetite or weight. Denies recent change in bowel habits, constipation, diarrhea, black stools or rectal bleeding. Patient denies major cardiac or pulmonary problems, loud snoring or sleep apnea Denies problems with anesthesia in the past. Denies being on chronic anticoagulation. Patient denies known family history of liver disease, colon polyps, colon cancer or other GI malignancies. LABS IN [employer] : Reviewed IMAGING STUDIES: 04/03/[address] SCAN SHWED: Partial/intermittent distal small bowel obstruction. Internal hernia cannot be excluded. Hepatosplenomegaly and lymphadenopathy. Ascites, moderate volume. Multifocal pneumonia, right lower lung lobes. Probable cholelithiasis. ENDOSCOPIC STUDIES: 04/09/24 LEFT SIDED COLONOSCOPY SHOWED: Colonoscopy Findings: One large polyp detected in the sigmoid colon - not removed since colon was not prepped and INR is 2.5 Moderate hemorrhoids on antegrade exam. Plan: Repeat Colonoscopy in 6 to 8 weeks with colon prep for polyp removal Pt will be scheduled for a FU appt in the GI clinic PAST GI HISTORY BY REVIEW OF MEDICAL RECORDS: 34 YM with ESLD related to ETOH abuse, mood disorder, cholelithiasis admitted to [facility] on 04/01/24 with altered mental status due to hepatic encephalopathy. Patient had been in the ED day prior to presentation for abdominal pain and distention due to symptomatic ascites. Underwent paracentesis which was negative for SBP, had relief and was discharged home. Pt was brought to [facility] ED on 04/01/24 with altered mental status, hallucination. Ammonia 67, He denied alcohol intake over last 3 weeks Mental status has improved with treatment with lactulose and Rifaximin. Pt continues to have abdominal distension RECOMMENDATIONS: 1. Agree with CIWA protocol. 2. Continue lasix and spironolactone for ascites and lactulose and Rifaximin for hepatic encephalopathy 3. Fleet enema x 1 followed by rectal tube placement for abdominal distensi [facility] Medical History (Updated 12/10/24 @ 07:09 by Tania Arguello RN) Insomnia Anxiety Anemia Postprandial abdominal pain in right upper quadrant COVID Cirrhosis Neuropathy Sensory ataxia Clavicle fracture Alcohol abuse Foot pain, bilateral Abnormal complete blood count Abnormal liver enzymes No known health problems Surgical History (Updated 12/10/24 @ 08:01 by Tania Arguello RN) History of esophagogastroduodenoscopy (EGD) Hx of colonoscopy Hx of skin graft Family History Paternal Grandfather Cancer Paternal Grandmother Cancer Social History Household Members: Significant Other Housing: Condominium Are you a primary direct care worker to a significant other at home: No Do you presently have visiting nurse or other home services: No Unable to assess alcohol history related to: Unknown Alcohol intake: former Comment: patient refusing bed alarm, steady on feet, high fall risk per CIWA protoca Patient Tobacco Use Status: Former Tobacco user Years Smoked: 10 e-Cigarette/Vaping Use: Currently Using Substance Use Type: Marijuana Advance Directives: No Advance Directives Information Provided: Yes service: No 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 status: 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 Review of Systems Const All systems reviewed & are unremarkable except as noted in HPI and below Physical Exam Vital Signs: Last Vital Signs Pulse 62 11/22/24 13:06 BP 103/62 11/22/24 13:06 Pulse Ox 98 11/22/24 13:06 Oxygen Delivery Method Room Air 11/22/24 13:06 BMI result Body Mass Index 24.4 Const General: no acute distress Nutritional Appearance: average body habitus Orientation/consciousness: patient oriented x3 Limitations: no limitations HEENT Head: Yes normal to inspection Ears: hearing grossly normal bilaterally Eyes Sclerae: sclerae normal Pupils: Equal, round and reactive pupils present Neck Neck: Yes normal visual inspection Chest Chest palpation & inspection: normal inspection of the chest Resp Effort & Inspection: normal respiratory effort Auscultation: clear to auscultation bilaterally Cardio Palpation: normal PMI Rate: regular rate Rhythm: regular rhythm Heart sounds: S1 normal heart sound present, S2 normal heart sound present and no murmurs GI Palpation (GI): Soft to palpation, nontender and No hepatosplenomegaly present Auscultation: normal bowel sounds Rectal Exam - Male: Yes deferred Skin General skin exam: no rashes or lesions noted Neuro General: patient oriented x3, gait normal and moves all extremities Cranial nerves: Yes Equal, round and reactive pupils present Extrem General: No pedal edema Psych Appearance: grossly normal Mental Status: mental status grossly normal Assessment & Plan Assessment & Plan (1) Hemochromatosis: Code(s): E83.119 - Hemochromatosis, unspecified Category: Medical Qualifiers: Hemochromatosis type: hereditary Qualified Code(s): E83.110 - Hereditary hemochromatosis (2) Cholelithiasis: Code(s): K80.20 - Calculus of gallbladder without cholecystitis without obstruction Category: Medical (3) Alcoholic cirrhosis of liver with ascites: Code(s): K70.31 - Alcoholic cirrhosis of liver with ascites Category: Medical Plan 34 YM with ESLD related to ETOH abuse, mood disorder, cholelithiasis hospitalized at [facility] 04/01 to 04/18/24 with altered mental status due to hepatic encephalopathy. Pt was brought to [facility] ED on 04/01/24 with altered mental status, hallucination and ammonia level of 67, He denied alcohol intake over the preceding 3 weeks Hospital course: Patient was admitted for acute metabolic encephalopathy due to acute hepatic encephalopathy due to alcohol dependence with alcoholic cirrhosis. He was treated with lactulose and rifaximin and is now having 2-3 bowel movements per day and mental status is back to baseline. Patient was also noted to have some delusions when his hepatic encephalopathy seemed to be resolved. Was seen by Psychiatry and received several days of Invega, recommended to then discontinue Invega. Patient hallucinations have not recurred. For anasarca due to cirrhosis patient received albumin and Lasix with significant improvement. For abdominal pain and distention secondary to ileus CT abdomen initially showed intermittent distal small-bowel obstruction but seen by surgery and felt this is more likely ileus. Received neostigmine, followed by colonoscopy with decompression and ileus resolved. Patient is having bowel movements and tolerating solids. Course complicated by hypomagnesemia which was replaced. Also noted to have some hyperglycemia on admission, however, A1c was 4.3 and hyperglycemia resolved. For cholelithiasis was seen by surgery who recommended conservative care, unlikely that this is causing abdominal pain. For history of DVT patient has already completed course of Eliquis. Due to physical conditioning, pt was seen by physical therapy recommended short- term rehab to which patient will be discharged, expected to require less than 30 days Mental status has improved with treatment with lactulose and Rifaximin. REDUCING THE RISK OF LIVER PROGRESSION: patient was advised to completely avoid use of alcohol Regular physical activity would also be beneficial. VACCINATIONS: Pt has serological evidence of prior exposure to or vaccination against Hep A and hepatitis B. SURVEILLANCE FOR GASTROESOPHAGEAL VARICES: I will plan schedule an EGD (screen for varices) and a colonoscopy (for FU of colon polyp). 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 aBbar Coyne at [facility] liver transplant clinic. 05/29/24 pt has worsening bilateral lower extremity edema (Left > right) and complains of left calf pain (hx of bilateral superficial thrombophlebitis and superficial vein (left saphenous vein) thrombosis treated with fondaparinux and switched to Eliquis Eliquis was discontinued at the time of discharge from [facility] in Mar, 2024 Pt has a positive family hx of blood clots in 3 of his siblings. Patient was advised to go to [facility] ER for urgent Doppler ultrasound his lower extremities to rule out DVT. 11/22/24 Continues to have sleep disturbance for the past 6 months Appetite is good. Notes improvement in lower extremity edema - continue torsemide 10 mg and spironolactone 50 mg daily Patient was empirically started on carvedilol 3.125 mg twice daily. Continue rifaximin and lactulose for hepatic encephalopathy. Pt was advised to schedule an EGD (screen for varices) and a colonoscopy (polyp seen on Flex sig and not removed due to unprepped colon and elevated INR). Fu in 3 months Coding Level of Care Code Est Pt Level 4 (32542) Complex EM visit Add On G2211 Diagnoses Hereditary hemochromatosis E83.110 Hemochromatosis type: hereditary Cholelithiasis K80.20 Alcoholic cirrhosis of liver with ascites K70.31 Time Spent (min) 22
[2024-11-22 13:06] VITALS: BP 103/62; PULSE 62; O2SAT 98; BMI 24.4
--- OUTSIDE RECORDS SUMMARY | 2024-11-22 13:35 | XMS_ITS | Clinical Summary ---
Author Organization [facility] it Address [address] [place] [address] Care Team Providers Care Head Packager Name Role Phone Unavailable Primary Care Provider [...]
--- OUTSIDE RECORDS SUMMARY | 2024-11-22 13:35 | XMS_ITS | Clinical Summary ---
Author Organization [employer] Address [address] [place] [address] Care Team Providers Care Hardener Helper Name Role Phone Unavailable Primary Care Provider [...]
== END 2024-11-22 14:15 | disposition home or self-care (01) ==
LOC: HO.HGI 12:57
PROVIDERS: PCP Internal Medicine; Visit Provider Internal Medicine Gastroenterology
DX: E83.110 Hereditary hemochromatosis (principal); K80.20 Calculus of gallbladder without cholecystitis without obstruction; K70.31 Alcoholic cirrhosis of liver with ascites
CPT/HCPCS: 99214

== ENCOUNTER → 2024-11-22 12:56 | Outpatient (BNVA) | payer OTHER, SELFPAY | PROVIDERS: PCP Internal Medicine; Visit Provider Internal Medicine Gastroenterology | DX: E83.110 Hereditary hemochromatosis (principal); K80.20 Calculus of gallbladder without cholecystitis without obstruction; K70.31 Alcoholic cirrhosis of liver with ascites | CPT/HCPCS: 99212 ==

== ENCOUNTER 2024-12-10 07:41 | Day surgery (SDC) | payer OTHER, SELFPAY ==
--- NOTE | 2024-12-07 10:22 | HO.ANESPROP2 ---
Documented by User: Yadi Olivo NP 12/07/24 10:29 HPI - Anesthesia Eval Consult details Narrative: 34yo M for Upper Endoscopy and Colonoscopy ETOH cirrhosis PMFSH Active Problems Active Problems: All Active Problems Insomnia (Acute) Anemia (Acute) Not currently working due to disabled status (Acute) Bilateral lower extremity edema (Acute) Risk for falls (Acute) Nicotine dependence (Acute) Excessive daytime sleepiness (Acute) Confusion (Acute) Alcoholic cirrhosis of liver with ascites (Acute) COVID (Acute) Cholelithiasis (Acute) Postprandial abdominal pain in right upper quadrant (Acute) Peripancreatic fluid collection (Acute) Coagulopathy (Acute) Alcohol use disorder (Acute) Cirrhosis (Acute) Conjugated hyperbilirubinemia (Acute) Liver injury (Acute) Alcoholic hepatitis (Acute) Hemochromatosis (Acute) Hypokalemia (Acute) Superficial thrombophlebitis of both legs (Acute) Superficial thrombophlebitis of both legs (Acute) Thrombosis of left saphenous vein (Acute) Diarrhea (Acute) Neuropathy (Acute) Sensory ataxia (Acute) Hypertension, essential (Acute) Encounter for general adult medical examination with abnormal findings (Acute) Alcoholic peripheral neuropathy (Acute) Multiple fractures of ribs, right side, sequela (Acute) Chest injury (Acute) Contusion of rib on right side (Acute) Peripheral neuropathy (Acute) Recurrent falls (Acute) Elevated blood pressure reading (Acute) Fall (Acute) Alcoholism (Acute) Paresthesia of both feet (Acute) Hypomagnesemia (Acute) Thrombocytopenia (Acute) Leucopenia (Acute) Alcohol withdrawal (Acute) Transaminitis (Acute) Status post hardware removal (Acute) Muscle spasm (Acute) Sore throat (viral) (Acute) Upper respiratory infection, viral (Acute) COVID-19 (Acute) Edema of both feet (Acute) Bilateral swelling of feet (Acute) Hospital discharge follow-up (Acute) Neuropathy (Acute) Elevated ferritin (Acute) Major depression, recurrent (Acute) Anxiety, generalized (Acute) Alcoholism (Acute) Hemochromatosis (Acute) Left foot pain (Acute) Dental infection (Acute) Fracture of clavicle, left, closed (Acute) Fracture of left clavicle with routine healing (Acute) Pain of left clavicle (Acute) Alcohol abuse (Acute) Foot pain, bilateral (Acute) Abnormal complete blood count (Acute) Abnormal liver enzymes (Acute) Past Medical History Medical History (Updated 12/10/24 @ 07:09 by Tania Arguello RN) Insomnia Anxiety Anemia Postprandial abdominal pain in right upper quadrant COVID Cirrhosis Neuropathy Sensory ataxia Clavicle fracture Alcohol abuse Foot pain, bilateral Abnormal complete blood count Abnormal liver enzymes No known health problems Family History Family History Paternal Grandfather Cancer Paternal Grandmother Cancer Family history of problems with anesthesia: No Surgical History Surgical History (Updated 12/10/24 @ 08:01 by Tania Arguello RN) History of esophagogastroduodenoscopy (EGD) Hx of colonoscopy Hx of skin graft History of Problems with Anesthesia: No Social History Social History Household Members: Significant Other Housing: Condominium Are you a primary director of health care marketing to a significant other at home: No Do you presently have visiting nurse or other home services: No Unable to assess alcohol history related to: Unknown Alcohol intake: former Comment: patient refusing bed alarm, steady on feet, high fall risk per ROBBY cummings Patient Tobacco Use Status: Former Tobacco user Years Smoked: 10 e-Cigarette/Vaping Use: Currently Using Use of substances other than those prescribed or required for medical reasons: No Substance Use Type: Marijuana Are you DNR?: No Advance Directives: No Advance Directives Information Provided: Yes service: No 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 status: 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 Meds Allergies Allergy/AdvReac Type Severity Reaction Status Date / Time No Known Allergies Allergy Verified 12/10/24 08:04 Home Medications ?Medication ?Instructions ?Recorded ?Confirmed ?Last Taken ?Type carvedilol 12.5 mg tablet 12.5 mg PO BID 06/25/24 12/10/24 12/10/24 History thiamine HCl (vitamin B1) 100 mg 100 mg PO DAILY 06/25/24 12/10/24 12/10/24 History tablet torsemide 5 mg tablet 5 mg PO DAILY 06/25/24 12/10/24 12/10/24 History Exam Pertinent Lab Results Pertinent Lab Results: Laboratory Tests 10/03/24 15:22 Sodium 138 Potassium 3.4 D Chloride 98 Carbon Dioxide 31 H BUN 6 L Creatinine 0.59 Narrative Narrative: EKG 04/2024 Vent. Rate : 104 BPM Atrial Rate : 104 BPM P-R Int : 158 ms QRS Dur : 74 ms QT Int : 346 ms P-R-T Axes : 40 5 69 degrees QTcB Int : 454 ms Sinus tachycardia Nonspecific T wave abnormality Abnormal ECG When compared with ECG of 03-Apr-2024 08:22, T wave inversion no longer evident in Anterior leads Assessment and Plan Assessment Anesthesia Assessment: Chart Reviewed Final Anesthetic Review Family History of Problems with Anesthesia: No History of Problems with Anesthesia: No Documented by User: Floyd Harris MD 12/10/24 09:14 [facility] Past Medical History Medical History (Updated 12/10/24 @ 07:09 by Tania Arguello RN) Insomnia Anxiety Anemia Postprandial abdominal pain in right upper quadrant COVID Cirrhosis Neuropathy Sensory ataxia Clavicle fracture Alcohol abuse Foot pain, bilateral Abnormal complete blood count Abnormal liver enzymes No known health problems Family History Family History Paternal Grandfather Cancer Paternal Grandmother Cancer Surgical History Surgical History (Updated 12/10/24 @ 08:01 by Tania Arguello RN) History of esophagogastroduodenoscopy (EGD) Hx of colonoscopy Hx of skin graft Social History Social History Household Members: Significant Other Housing: Condominium Are you a primary director of health care marketing to a significant other at home: No Do you presently have visiting nurse or other home services: No Unable to assess alcohol history related to: Unknown Alcohol intake: former Comment: patient refusing bed alarm, steady on feet, high fall risk per CIWA protoca Patient Tobacco Use Status: Former Tobacco user Years Smoked: 10 e-Cigarette/Vaping Use: Currently Using Use of substances other than those prescribed or required for medical reasons: No Substance Use Type: Marijuana Are you DNR?: No Advance Directives: No Advance Directives Information Provided: Yes service: No 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 status: 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 Meds Allergies Allergy/AdvReac Type Severity Reaction Status Date / Time No Known Allergies Allergy Verified 12/10/24 08:04 Home Medications ?Medication ?Instructions ?Recorded ?Confirmed ?Last Taken ?Type carvedilol 12.5 mg tablet 12.5 mg PO BID 06/25/24 12/10/24 12/10/24 History thiamine HCl (vitamin B1) 100 mg 100 mg PO DAILY 06/25/24 12/10/24 12/10/24 History tablet torsemide 5 mg tablet 5 mg PO DAILY 06/25/24 12/10/24 12/10/24 History Exam Airway Mallampati Class: IV (liver cirrhosis with ascitis) TM Dist: >3cm Neck ROM: Full Assessment and Plan Final Anesthetic Review NPO: Yes ASA Class: IV Final Preanesthetic Review: No Changes in Pt Med Stat, Meds/Allgs Chart Reviewed, Consent Obtained/Reviewed and Anes Risks/Benef Reviewed Patient Risk: Intermediate Procedure Risk: Low Anesthetic Plan Anesthetic Plan: TIVA Disposition: Standard PACU
[2024-12-10 08:07] VITALS: BMI 26.2
[2024-12-10 08:16] VITALS: BP 96/56; PULSE 67; RESP 15; TEMP 36.8; O2SAT 99
[2024-12-10] MEDS: Lactated Ringers 1,000 ML 100 ML IVCONT (08:23)
[2024-12-10 08:24] LABS: INTERNATIONAL NORM RATIO 1.4 (0.9-1.1); Prothrombin Time 16.5 SEC (10.9-12.4)
[2024-12-10 08:34] LABS: Hematocrit 34.4 % (42.0-52.0); Hemoglobin 12.0 g/dl (14.0-18.0); Mean Corpuscular HGB Conc 34.9 g/dl (31.0-36.0); Mean Corpuscular Hemoglobin 31.4 pg (27.0-33.0); Mean Corpuscular Volume 90.1 fL (80.0-98.0); NRBC Abs Auto 0.000 X10*3/uL (0.0-0.012); NRBC Pct Auto 0.0 /100WBC (0.0-0.2); Platelet Count 127 X10*3/uL (160-400); Red Blood Count 3.82 X10*6/uL (4.60-5.80); White Blood Count 4.5 X10*3/uL (4.8-10.8)
[2024-12-10 08:36] LABS: Alanine Aminotransferase 21 U/L (0-40); Albumin Level 3.1 g/dL (3.5-5.0); Alkaline Phosphatase 220 U/L (39-117); Aspartate Amino Transferase 74 U/L (5-37); Total Protein 5.5 g/dL (6.5-8.0)
--- NOTE | 2024-12-10 09:08 | MHC.SHP ---
Pre-Procedural Eval Section A - 24 Hr Update-Section A only Date of Service: 12/10/24 The patient is an INPATIENT: No Changes since office visit: Yes Patient answered all questions; No Cold of Flu in the past 2 weeks, No New Medical Problems and No Changes in Medication The patient has been examined within 24 hours of the surgical procedure. The History & Physical has been completed within 30 days and I have reviewed it.: Yes Section B - Complete if H&P > 30 days Chief Complaint: Alcoholic cirrhosis of liver with ascites Allergies: Allergies Allergy/AdvReac Type Severity Reaction Status Date / Time No Known Allergies Allergy Verified 12/10/24 08:04 Plan Diagnosis/Plan: Unchanged I have reviewed the history and physical and performed a pertinent physical examination on my patient. No changes have occurred unless specified. Time Spent With Patient Time: Total time managing care of this patient today ____ minutes.
--- NOTE | 2024-12-10 09:36 | P.OPN-COLO_ITS ---
Colonoscopy Operative Note Operative Note Date of Service: 12/10/24 Narrative: FLEXIBLE TRANSORAL UPPER GASTROINTESTINAL ENDOSCOPY WITH BIOPSIES AND COLONOSCOPY TILL CECUM WITH SNARE POLYPECTOMY, SUBMUCOSAL INJECTION AND HEMOCLIP PLACEMENT. Pre-op diagnosis: FU of colon polyp, screen for varices Post-op diagnosis: Portal hypertensive gastropathy, Colon Polyps, Diverticulosis, hemorrhoids Endoscopist:? Yemi De Paz MD Anesthesia:?MAC UPPER ENDOSCOPY Consent: Indications for the procedure and potential complications of bleeding, perforation, reaction to medications and missed diagnosis were discussed with the patient and informed consent was obtained. Instrument: Olympus GIF H 190 mid size upper endoscope Monitoring: Vital signs and clinical assessment, continuous EKG monitoring, Pulse oximetry, Carbon Dioxide monitoring and blood pressure monitoring were done throughout the procedure. Procedure: The patient was placed in the left lateral decubitis position and pre-procedure medications were administered and a bite block was placed. The endoscope was inserted into the mouth and advanced under direct vision to the third part of duodenum. A careful inspection was made as the upper endoscope was withdrawn including a retroflexed examination of the proximal stomach; Findings and interventions are described below. Findings: Larynx: Normal Esophagus: GE junction at 42 cms. No esophagitis or Freeman's. No esophageal varices seen Stomach: Moderate portal hypertensive gastropathy - biopsies were obtained from the antrum. Grade 2 flap valve and no gastric varices seen on retroflexed examination of the cardia. Duodenum: Normal bulb and descending duodenum Intervention: Biopsies as noted above COLONOSCOPY PROCEDURE NOTE Instrument: Olympus CF H 190 L variable stiffness adult colonoscope Monitoring: Vital signs and clinical assessment, intermittent blood pressure monitoring, continuous EKG monitoring, Pulse oximetry and Carbon Dioxide monitoring were done throughout the procedure. Please see anesthesia flowsheet. Colon withdrawl time was 26 minutes. Procedure: The patient was placed in the left lateral decubitis position and pre-procedure medications were administered. After a digital rectal examination of the ano-rectum, the video colonoscope was inserted into the rectum and advanced through the colon to the cecum. The colonoscope was slowly withdrawn in a retrograde panoramic fashion and the colon mucosa was carefully examined including a retroflexed view of the rectum. Findings and interventions are described below. Procedure Difficulty: without difficulty Findings: Terminal Ileum: Not evaluated Cecum: Normal Ascending Colon: A 10 - 12 mm flat polyp in the mid ascending colon. Polyp was raised with 2 cc of [place] and removed with a stiff hot snare. Polypectomy site was closed with 1 hemoclip Transverse Colon: Normal Descending Colon: Normal Sigmoid Colon: A 2.5 cms pedunculated polyp at 40 cms. Polyp was removed with a stiff hot snare and polypectomy site was closed with 1 hemoclip. Moderate diverticulosis Rectum: Normal Ano-rectum: Small internal hemorrhoids Colon preparation: Good after copious irrigation. [place] Bowel Preparation Scale Right colon; 2 Transverse colon: 2 Left colon; 2 (0 = Unprepared colon segment with mucosa not seen due to solid stool that cannot be cleared. 1 = Portion of mucosa of the colon segment seen, but other areas of the colon segment not well seen due to staining, residual stool and/or opaque liquid. 2 = Minor amount of residual staining, small fragments of stool and/or opaque liquid, but mucosa of colon segment seen well. 3 = Entire mucosa of colon segment seen well with no residual staining, small fragments of stool or opaque liquid) Impression and Post Procedure Diagnosis: Endoscopy Findings: ESOPHAGUS: No esophagitis or Freeman's or esophageal varices seen STOMACH: Moderate portal hypertensive gastropathy - biopsies were obtained from the antrum. DUODENUM: Normal Colonoscopy Findings: Two medium sized polyps were removed Moderate diverticulosis seen in the sigmoid colon small hemorrhoids on antegrade withdrawal. Plan: Pt to schedule a FU appointment with Dr De Paz Repeat Flexible sigmoidoscopy in 6 months if sigmoid polyp shows advanced histology, and repeat colonoscopy in 3 years. A summary of above findings and relevant handouts were given to the patient. BIOPSIES SHOWED: A. Gastric antrum, biopsy: Gastric antral mucosa with mild reactive changes and minimal chronic inactive gastritis; negative for H.pylori, intestinal metaplasia and dysplasia. B. Colon, ascending, polyp: Consistent with hyperplastic polyp (see comment). C. Colon, at 40 cm, polyp: Tubulovillous adenoma, completely excised; negative for high-grade dysplasia and carcinoma. Comment: (B): A sessile serrated lesion can not be excluded in any residual polyp and follow-up is warranted Letter sent to the patient biopsy results. Patient was placed on the procedure recall list for a follow-up flexible s igmoidoscopy in 6 months.
[2024-12-10 10:25] VITALS: BP 107/61; PULSE 70; RESP 20; TEMP 36.3; O2SAT 95
[2024-12-10 10:40] VITALS: BP 100/60; PULSE 62; RESP 18; TEMP 36.1; O2SAT 100
== END 2024-12-10 11:19 | disposition home or self-care (01) ==
PROVIDERS: Nurse Practitioner; PCP Internal Medicine; Visit Provider Internal Medicine Gastroenterology
PROC: (CPT 43239; principal; 2024-12-10 09:20)
DX: Z12.11 Encounter for screening for malignant neoplasm of colon (principal); D12.5 Benign neoplasm of sigmoid colon; K57.30 Diverticulosis of large intestine without perforation or abscess without bleeding; K64.8 Other hemorrhoids; K76.6 Portal hypertension; K70.31 Alcoholic cirrhosis of liver with ascites; F10.20 Alcohol dependence, uncomplicated; K31.89 Other diseases of stomach and duodenum; E83.119 Hemochromatosis, unspecified; K76.82 Hepatic encephalopathy; Z87.891 Personal history of nicotine dependence; Z79.899 Other long term (current) drug therapy
CPT/HCPCS: 43239; 45381; 45385; 36415; 80076; 85027; 85610; 88305; 88342; J1100; J2250; J2405; J2704; J3010

== ENCOUNTER → 2024-12-10 07:41 | Outpatient (BNV) | payer OTHER, SELFPAY | PROVIDERS: PCP Internal Medicine; Visit Provider Internal Medicine Gastroenterology | DX: Z12.11 Encounter for screening for malignant neoplasm of colon (principal); D12.2 Benign neoplasm of ascending colon; D12.5 Benign neoplasm of sigmoid colon; K57.30 Diverticulosis of large intestine without perforation or abscess without bleeding; K64.8 Other hemorrhoids; K70.31 Alcoholic cirrhosis of liver with ascites; K76.6 Portal hypertension; K31.89 Other diseases of stomach and duodenum | CPT/HCPCS: 43239; 45381; 45385 ==

== ENCOUNTER 2025-01-08 11:54 | Outpatient (REF) | payer OTHER, SELFPAY ==
[2025-01-08 12:32] LABS: MANUAL DIFF FLAG NO
[2025-01-08 14:04] LABS: Hematocrit 33.0 % (42.0-52.0); Hemoglobin 11.7 g/dl (14.0-18.0); Imm Gran Abs Auto 0.01 X10*3/uL (0.00-0.03); Imm Gran Pct Auto 0.3 % (0.0-0.4); Lymphocytes Absolute Auto 1.0 X10*3/uL (1.2-4.9); Mean Corpuscular HGB Conc 35.5 g/dl (31.0-36.0); Mean Corpuscular Hemoglobin 31.9 pg (27.0-33.0); Mean Corpuscular Volume 89.9 fL (80.0-98.0); NRBC Abs Auto 0.000 X10*3/uL (0.0-0.012); NRBC Pct Auto 0.0 /100WBC (0.0-0.2); Platelet Count 145 X10*3/uL (160-400); Red Blood Count 3.67 X10*6/uL (4.60-5.80); White Blood Count 3.6 X10*3/uL (4.8-10.8)
[2025-01-08 14:45] LABS: Alanine Aminotransferase 31 U/L (0-40); Albumin Level 3.2 g/dL (3.5-5.0); Alkaline Phosphatase 215 U/L (39-117); Anion Gap 8 (12-20); Aspartate Amino Transferase 66 U/L (5-37); Blood Urea Nitrogen 5 mg/dL (9-16); Calcium 8.3 mg/dL (8.4-10.2); Carbon Dioxide 26 mmol/L (22-29); Chloride 110 mmol/L (96-108); Estimated Glomerular Filt Rate > 60; Iron 105 mcg/dL (45-160); Magnesium 1.9 mg/dL (1.6-2.6); Percent Iron Saturation 47 % (15-50); Potassium 4.0 mmol/L (3.3-5.1); Sodium 140 mmol/L (135-145); Total Iron Binding Capacity 223 mcg/dL (228-428); Total Protein 5.5 g/dL (6.5-8.0); Unsaturated Iron Binding 118 ug/dL
[2025-01-08 14:48] LABS: Ferritin 91 ng/mL (20-250)
[2025-01-08 15:09] LABS: Folate > 20.0 ng/mL (> or = 4.0); Vitamin B12 1030 pg/mL (200-900)
== END 2025-01-08 11:55 | disposition home or self-care (01) ==
LOC: HO.LAB 11:54
PROVIDERS: PCP Internal Medicine; Visit Provider Nurse Practitioner Family
DX: I10 Essential (primary) hypertension (principal); F41.1 Generalized anxiety disorder; E83.42 Hypomagnesemia; R79.89 Other specified abnormal findings of blood chemistry; D64.9 Anemia, unspecified; M62.838 Other muscle spasm; G62.9 Polyneuropathy, unspecified; E51.9 Thiamine deficiency, unspecified
CPT/HCPCS: 36415; 80053; 82607; 82728; 82746; 83036; 83090; 83540; 83735; 83921; 84207; 84425; 84443; 85025; 85652; 86140

== ENCOUNTER → 2025-01-14 12:51 | Outpatient (REF) | payer OTHER, SELFPAY ==
--- OUTSIDE RECORDS SUMMARY | 2025-01-14 15:35 | XMS_ITS | Clinical Summary ---
Author Organization [facility] Address [address] [place] [address] Care Team Providers Care Strategy Manager Name Role Phone Unavailable Primary Care Provider [...] of 3 - 19+ 3-dose series) 2009 HPV Vaccines (1 - 3-dose SCD M series) 2017 Depression Screening 03/28/2024 COVID-19 Vaccine (1 - 2023-2 5 season) 2024 Influenza Vaccine (#1) 2024 RSV Immunization Adult Patie nts (1 - 1-dose 75+ series) 2065 HIB [...]
--- OUTSIDE RECORDS SUMMARY | 2025-01-14 15:36 | XMS_ITS | Clinical Summary ---
Author Organization [employer] Address [address] [place] [address] Care Team Providers Care Comsec Manager Name Role Phone Unavailable Primary Care [...] Comments Depression Screening 1990 HIV Screening 1990 Lipid Panel 1990 SDOH Screening 1990 Disability Screening 1990 Alcohol/Substance Use Screening 2002 Tobacco Screening 2002 Family Planning (PISQ) 2005 HPV Vaccines (1 - Male 3-dos e series) 2005 Hepatitis C Screening 01/06/2008 DTaP/Tdap/Td Vaccines (1 - Tdap) 2009 Hepatitis B Vaccines (1 of 3 - 19+ 3-dose series) 2009 COVID-19 Vaccine (1 - 2023-2 5 season) 2024 Influenza Vaccine (#1) 2024 Zoster Vaccines (1 [...]
== END ==
LOC: HO.SL 12:51
PROVIDERS: PCP Internal Medicine; Visit Provider Physician Assistant Medical
DX: G47.19 Other hypersomnia (principal); R06.83 Snoring; R40.0 Somnolence
CPT/HCPCS: 95806

== ENCOUNTER → 2025-01-14 13:05 | Outpatient (BNV) | payer OTHER, SELFPAY | PROVIDERS: PCP Internal Medicine; Visit Provider Psychiatry & Neurology Neurology | DX: R06.83 Snoring (principal) | CPT/HCPCS: 95806 ==

== ENCOUNTER 2025-01-16 10:24 | Outpatient (AMB) | payer OTHER, SELFPAY ==
[2025-01-16 10:29] VITALS: BP 100/70; PULSE 79; O2SAT 98; BMI 27.3
--- NOTE | 2025-01-16 10:29 | A.OFFVIS_ITS ---
Vital Signs 01/16/25 10:29 Height 6 ft 2 in Weight 213 lb BMI 27.3 BP 100/70 Blood Pressure Location Lt brachial Position Sitting Pulse 79 Pulse Source Pulse Oximeter Pulse Oximetry (%) 98 Oxygen Delivery Method Room Air Intake Visit Reasons: F/U PER [facility]. 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 Required: No Accompanied by: Self / Same As Patient Allergies No Known Allergies Allergy (Verified 01/16/25 10:33) Medication List - Last Reconciled 01/16/25 by NUPUR Keyes acamprosate 333 mg PO BID 30 days buprenorphine-naloxone 2-0.5 mg (Suboxone) 1 film buccal DAILY carvedilol 12.5 mg PO BID folic acid 1 mg PO DAILY gabapentin 300 mg (3 x 100 mg) PO TID 30 days MDD 900 lactulose 20 grams (30 mL) PO TID 30 days lorazepam 1 mg PO BEDTIME PRN 30 days magnesium oxide 400 mg PO BID melatonin 5 mg PO BEDTIME PRN 3 months MDD 5mg multivitamin (Daily-Gerri tablet) 1 tab PO DAILY nicotine 21 mg transdermal DAILY 7 days omeprazole 20 mg PO DAILY 30 days potassium chloride ER 20 mEq PO DAILY rifaximin 550 mg PO BID 30 days spironolactone 50 mg (2 x 25 mg) PO DAILY 90 days thiamine HCl (vitamin B1) 100 mg PO DAILY torsemide 5 mg PO DAILY HPI Comments Details: 34-year-old male presents for follow-up visit of neuropathy. 06/25/2024, HPI: Patient required a recent hospitalization due to abdominal pain secondary to ascites. Patient has abstained from alcohol for many months now. He has seen [facility]. It is unclear to patient if he is a candidate for transplant or not. Patient reports he is compliant with rifaximin. Patient reports he continues to have bilateral lower extremity, more so on the left, painful numbness. He often feels off balance. To have bilateral lower extremity swelling. He continues to have right fingertip numbness. Gabapentin helps some. He also reports episodes of confusion. Reports sleeping difficulties, restlessness. Interval labs from [facility], per patient's portal which he shares with me today: zinc- 49 L vit d 18 L vit A <5 varicella zoster AB- nl TSH- 4.510 H toxoplasma gondii Ab IgG- 50.50 H (norm > 8.79) RPR- neg HIV- neg Quantiferon gold- neg PTT- 31.9 NL PT/INR- 15.1 H/1.4 NL smooth muscle AB- neg protein electrophorses-, serum- abd alpha 1 antitrypsin phenotype- PI*MZ 12/13/2023, HPI: Pt was recently d/c'd from [facility] for tx of alcoholic hepatitis, alcoholic cirrhosis, hepatic encephalopathy, alcohol use disorder with alcohol withdrawal. He is still visibly jaundiced. Pt states he has not drank alcohol since hospital d/c. He states he does not plan to drink again- only was drinking because he was home and bored. He is due for f/u labs- which he will due today. He is aware of his other f/u appts needed. Pt reports after his last visit in Apr, he went to the ER and was diagnosed w/ a LLE DVT and then developed a RLE DVT. States he has been tx'd w/ Eliquis. He states hematology feels this is likely familial- as he has strong family PE and blood clots. He states he his neuropathy symptoms make it difficult for him to walk. He cannot feel his toes or the soles of his feet, more son on the left. This makes him unbalanced. He has not fallen since he fell off the ladder before being referred here. He does also have numbness in his right fingertips. Some days are worse than others. The Gabapentin helps some (60-70%) with the discomfort but not the numbness. He does have BLE swelling. He notes that his compression boots for the DVTs is helpful. Denies BLE weakness. 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 [facility] Medical History (Updated 01/16/25 @ 13:16 by NUPUR Keyes) Insomnia Anxiety Anemia Postprandial abdominal pain in right upper quadrant COVID Cirrhosis Neuropathy Sensory ataxia Clavicle fracture Alcohol abuse Foot pain, bilateral Abnormal complete blood count Abnormal liver enzymes No known health problems Surgical History (Updated 01/16/25 @ 10:34 by Becki Caballero CMA) H/O tooth extraction History of esophagogastroduodenoscopy (EGD) Hx of colonoscopy Hx of skin graft Family History Paternal Grandfather Cancer Paternal Grandmother Cancer Social History Household Members: Significant Other Housing: [facility] Are you a primary healthcare prof to a significant other at home: No Do you presently have visiting nurse or other home services: No Alcohol intake: former Comment: patient refusing bed alarm, steady on feet, high fall risk per ROBBY cummings Patient Tobacco Use Status: Former Tobacco user Years Smoked: 10 e-Cigarette/Vaping Use: Currently Using Substance Use Type: Marijuana service: No 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 status: 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 Physical Exam Vital Signs: Last Vital Signs Pulse 79 01/16/25 10:29 BP 100/70 01/16/25 10:29 Pulse Ox 98 01/16/25 10:29 Oxygen Delivery Method Room Air 01/16/25 10:29 BMI result Body Mass Index 27.3 Const General: cooperative, no acute distress, ill appearing chronically and tired appearing Orientation/consciousness: patient oriented x3 Resp Effort & Inspection: normal respiratory effort and able to speak in complete sentences Neuro Other: Peripheral foot numbness Left forefoot- small areas of intact redness at base of left 2nd toe and medial left 1st toe- possible pressure lesion General: patient oriented x3 and moves all extremities Cranial nerves: Yes CN's II-XII intact bilaterally Cognition (Neuro): normal cognition Psych Appearance: grossly normal Mental Status: mental status grossly normal Speech and movement: Normal speech and movement present Affect: normal affect Attitude: cooperative Assessment & Plan Assessment & Plan (1) Insomnia due to medical condition: Code(s): G47.01 - Insomnia due to medical condition Category: Medical (2) Alcoholic peripheral neuropathy: Code(s): G62.1 - Alcoholic polyneuropathy Category: Medical (3) Sensory ataxia: Code(s): R27.8 - Other lack of coordination Category: Medical (4) Thiamine deficiency: Code(s): E51.9 - Thiamine deficiency, unspecified Category: Medical Plan Discussion notes: During the visit, we discussed several issues affecting the patient's health. The need for thiamine supplementation was highlighted due to documented deficiency primarily linked to past alcohol use. I emphasized the importance of daily foot inspection given the neuropathic symptoms and potential risk for unnoticed injuries or sores. A plan to adjust his current medication plan to reduce painful neuropathy symptoms was discussed. We discussed monitoring methods for both neuropathy and insomnia symptoms. The patient was advised to contact the [facility] to inform them that he has run out of his torsemide. Additional guidance on improving protein intake was provided within current dietary constraints. Patient was informed and verbally consented to the use of an ambient scribe for clinic note documentation during this visit. Plan and patient instructions: Alcoholic polyneuropathy G62.1 HCC 75 - Start thiamine 100 mg daily for the effects of vitamin deficiency on neuropathy. - Start OTC Nervive 5 nerve relief- advised this may take 6-8 weeks to see full effect - Continue gabapentin, increased to 400 mg TID, to manage pain symptoms. - May continue OTC Nervive nerve relief topical analgesic - Call the [facility] regarding your torsemide prescription as soon as possible. - Monitor for any recurrence or worsening of symptoms post-restart of diuretics. - Inspect your feet daily using a mirror to prevent unnoticed injuries. - Look into affordable protein sources like beans, chicken, or powders to improve diet.Migraine Insomnia due to medical condition G47.01 - Continue lorazepam 1 mg daily at bedtime as it's currently the most effective for sleep. - May take melatonin up to 10 mg daily, this will be more effective if taken in the evening - Follow-up pending sleep study results; consider apnea management if indicated. General * Refilled nicotine patch 14 mg * Information shared on clinicaltrials.gov, which he may review to see if there are any ongoing clinical trials on neuropathy Patient is advised to abstain from work at this time, he is at high risk for falls and injury d/t BLE peripheral neuropathy and episodes of cognitive impairment. Will follow-up upon review of above and patient to follow-up in clinic in 3 months or sooner prn. Medications: New nicotine 1 patch transdermal Q24H 28 ea 6RF 28 days gabapentin 400 mg PO TID 90 caps 6RF 30 days melatonin 10 mg PO BEDTIME lidocaine HCl-menthol 4-1 % (Nervive Pain Relieving) 1 appl topical BID-TID PRN Changed From thiamine HCl (vitamin B1) 100 mg PO DAILY To thiamine HCl (vitamin B1) 100 mg PO DAILY 90 tabs 1RF 90 days Refilled lorazepam 1 mg PO BEDTIME PRN 30 tabs 2RF sleep 30 days Discontinued lorazepam Discontinued Reason: Duplicate 1 mg PO BEDTIME 30 days PRN 30 tabs 1RF anxiety F41.1 - Generalized anxiety disorder nicotine Discontinued Reason: Doctor's Order 21 mg transdermal DAILY 7 days 7 ea 0RF gabapentin take 300mg po TID Discontinued Reason: Doctor's Order 300 mg (3 x 100 mg) PO TID 30 days 270 caps 3RF neuropathy MDD 900 G62.9 - Polyneuropathy, unspecified melatonin may take one tablet daily at bedtime. Discontinued Reason: Patient no longer taking 5 mg PO BEDTIME 3 months PRN 30 tabs 3RF sleep MDD 5mg G47.00 - Insomnia, unspecified Coding Level of Care Code Est Pt Level 4 (89498) Complex EM visit Add On G2211 Diagnoses Insomnia due to medical condition G47.01 Alcoholic peripheral neuropathy G62.1 Sensory ataxia R27.8 Thiamine deficiency E51.9
--- OUTSIDE RECORDS SUMMARY | 2025-01-16 12:57 | XMS_ITS | Clinical Summary ---
Author Organization [facility] Address [address] [place] [address] Care Team Providers Care Chief Risk Officer Name Role Phone Unavailable Primary Care Provider [...]
--- OUTSIDE RECORDS SUMMARY | 2025-01-16 12:58 | XMS_ITS | Clinical Summary ---
Author Organization [employer] Address [address] [place] [address] Care Team Providers Care Coat Tailor Name Role Phone Unavailable Primary Care Provider [...]
== END 2025-01-16 11:26 | disposition home or self-care (01) ==
LOC: HO.HSMS 10:25
PROVIDERS: PCP Internal Medicine; Visit Provider Nurse Practitioner Family
DX: G47.01 Insomnia due to medical condition (principal); G62.1 Alcoholic polyneuropathy; R27.8 Other lack of coordination; E51.9 Thiamine deficiency, unspecified
CPT/HCPCS: 99214

== ENCOUNTER → 2025-01-16 10:24 | Outpatient (BNVA) | payer OTHER, SELFPAY | PROVIDERS: PCP Internal Medicine; Visit Provider Nurse Practitioner Family | DX: G47.01 Insomnia due to medical condition (principal); G62.1 Alcoholic polyneuropathy; R27.8 Other lack of coordination; E51.9 Thiamine deficiency, unspecified; Z91.81 History of falling | CPT/HCPCS: 99212 ==